=== PATIENT | male | born 1935 ===

== ENCOUNTER 2017-01-29 21:59 | Inpatient (IN) | payer MEDICARE, MEDICAID ==
[2017-01-29 21:59] VITALS: BMI 25.0
[2017-01-29] MEDS ORDERED: Albuterol-Ipratrop 3 mg / 0.5 (3 ml) UD ONE ×2 (22:06→23:35)
[2017-01-29] MEDS ORDERED: Albuterol-Ipratrop 3 mg / 0.5 (3 ml) UD INH STA (22:55)
[2017-01-29] MEDS ORDERED: Sodium Chloride 0.9% 1,000 ML IV ONE (22:56)
--- NOTE | 2017-01-29 22:57 | C.PDOC ---
History Of Present Illness Patient is an 81 year old male who presents to the ER with a complaint of SOB. Denies chest pain, fever, nausea or vomiting. Chief Complaint (Nursing): Shortness Of Breath History Per: Patient History/Exam Limitations: no limitations Onset/Duration Of Symptoms: Hrs Current Symptoms Are (Timing): Still Present Initiating Event: Other (Not known) Associated Symptoms: denies: Fever, Chest Pain, Other (Nausea, vomiting) Recent travel outside of the [place]: No Past Medical History Reviewed: Historical Data, Nursing Documentation, Vital Signs Vital Signs: Last Vital Signs Temp 98 F 02/02/17 16:00 Pulse 68 02/02/17 16:00 Resp 21 02/02/17 16:00 BP 118/72 02/02/17 18:08 Pulse Ox 99 02/02/17 19:36 - Medical History PMH: Anemia, Arthritis, Asthma, COPD, Diabetes, Emphysema, HTN, Hypercholesterolemia - [facility] Procedures ABD [place] REPAIR NEC (05/15/15) OTH LYSIS-PERITONEAL ADHES (05/15/15) Family History: States: Unknown Family Hx - Social History Hx Alcohol Use: No Hx Substance Use: No - Immunization History Hx Tetanus Toxoid Vaccination: No Hx Influenza Vaccination: No Hx Pneumococcal Vaccination: No Review Of Systems Constitutional: Negative for: Fever Cardiovascular: Negative for: Chest Pain Respiratory: Positive for: Shortness of Breath Gastrointestinal: Negative for: Nausea, Vomiting Physical Exam - Physical Exam Appears: Non-toxic, Other (Moderately Dyspenic) Skin: Normal Color, Warm, Dry Head: Atraumatic, Normacephalic Eye(s): bilateral: Normal Inspection, EOMI Oral Mucosa: Moist Chest: Symmetrical, No Tenderness Cardiovascular: Rhythm Regular (Tachycardic) Respiratory: Rhonchi (Bilaterally), Wheezing (Bilaterally) Gastrointestinal/Abdominal: Soft, No Tenderness Neurological/Psych: Oriented x3, Normal Speech, Normal Cognition ED Course And Treatment - Laboratory Results Result Diagrams: 02/02/17 06:22 02/02/17 06:22 ECG: Interpreted By Me, Viewed By Me ECG Rhythm: Sinus Tachycardia, R BBB ECG Interpretation: No Acute Changes, Abnormal Interpretation Of ECG: Sinus tachycardia with freq. PSVT, abnormal traciongs Rate From EC O2 Sat by Pulse Oximetry: 99 Pulse Ox Interpretation: Normal - Radiology CXR: Interpreted by Me, Viewed By Me CXR Interpretation: Yes: No Acute Disease. No: Infiltrates, Cardiomegaly Progress Note: EKG, blood work, CXR and urinalysis ordered. Solumedrol IVP, IV fluids and nebulizer treatment administered. Disposition Discussed With : Fracisco Lomax Jr. Doctor Will See Patient In The: Hospital Counseled Patient/Family Regarding: Diagnosis - Disposition Disposition: HOSPITALIZED Disposition Time: 01:20 Condition: STABLE - POA Present On Arrival: None - Clinical Impression Clinical Impression: Dyspnea, Asthma exacerbation, Renal insufficiency - Scribe Statement The provider has reviewed the documentation as recorded by the Scribe Ra Drummond All medical record entries made by the Scribe were at my direction and personally dictated by me. I have reviewed the chart and agree that the record accurately reflects my personal performance of the history, physical exam, medical decision making, and the department course for this patient. I have also personally directed, reviewed, and agree with the discharge instructions and disposition.
[2017-01-29 23:15] LABS: LYMPH # 0.3 K/uL (1.0-4.3); MEAN CORPUSCULAR HEMOGLOBIN 28.9 pg (27.0-31.0); WHITE BLOOD COUNT 6.4 K/uL (4.8-10.8)
[2017-01-29 23:17] LABS: BASO % 0.3 % (0.0-2.0); EOS # 0.1 K/uL (0.0-0.7); EOS % 1.7 % (0.0-4.0); LYMPH % 5.3 % (20.0-40.0); MEAN CELL VOLUME 88.2 fL (80.0-94.0); MEAN CORPUSCULAR HGB CONC 32.8 g/dL (33.0-37.0); MEAN PLATELET VOLUME 9.3 fL (7.2-11.7); MONO # 0.8 K/uL (0.0-0.8); MONO % 12.7 % (0.0-10.0); PLATELET COUNT 129 K/uL (130-400); RED CELL DISTRIBUTION WIDTH 15.3 % (11.5-14.5)
[2017-01-29 23:19] LABS: POTASSIUM 4.2 mmol/L (3.6-5.2)
[2017-01-29 23:21] LABS: ALB/GLOB RATIO 1.4 (1.0-2.1); BILIRUBIN,TOTAL 0.6 mg/dL (0.2-1.3); TOTAL PROTEIN 7.3 g/dL (6.3-8.3)
[2017-01-29 23:22] LABS: CALCIUM 8.9 mg/dl (8.6-10.4)
[2017-01-29 23:25] LABS: INR 1.2
[2017-01-29] MEDS ORDERED: Sodium Chloride 0.9% 1,000 ML ONE (23:35)
[2017-01-29 23:47] LABS: BASOPHIL 2 % (0-2); EOSINOPHIL 2 % (0-4); NEUTROPHIL 84 % (50-75); TOTAL CELLS COUNTED 100
[2017-01-30] MEDS ORDERED: Magnesium Sulfate 1 gm in D5W 1 GM/100 ML BAG IVPB ONE ×2 (00:42→00:49)
[2017-01-30] MEDS ORDERED: Enoxaparin 40 mg Syringe SC STA (01:25)
[2017-01-30] MEDS ORDERED: Sodium Chloride 0.9% 1,000 ML ONE (02:20)
[2017-01-30] MEDS ORDERED: Enoxaparin 60 mg Syringe ONE (02:20)
--- NOTE | 2017-01-30 02:46 | CP.PCM.HP ---
History of Present Illness - History of Present Illness History of Present Illness: CC: "Can't breathe and pain in chest" 81 M with PMH of Dm, COPD, Hyperlipidemia, Abdominal Aortic Aneurysm with Stent , history of paroxysmal afib, presents to [facility] ED for complaint of SOB and chest pain. Patient is unable to speak properly due to losing his voice. Becasue of this, History was limited. Patient states that these symptoms have been present for about 3 days. They had gotten worse earlier today and he felt like he needed to be seen. He has experienced these symptoms in the past. He rated chest pain as 7/10 in severity. He describes it as a constant heaviness located in chest bilaterally. Patient denies any exacerbating or alleviating factors for the pain but exertion makes his breathing worse. His last ECHO was in 09/2015 which showed normal EF at that time. Admits to chills, fatigue, palpitations, nausea. Denies fever, dizziness/lightheadedness, syncope , vertigo, headache, abd pain, vomiting, diarrhea, constipation, weakness, numbness/tingling, incontinence. PMH: Dm, COPD, Hyperlipidemia, Abdominal Aortic Aneurysm with Stent, Vascular Grafts, Scoliosis, Enlarged Prostate Meds: Patient does not have list with him, need to confirm Allergies: NKDA PSH: Hernia repair X 2, Abdominal Aortic Aneurysm Stent, Incarcerated hernia repair 05/2015 Hosp: Last year for fall and SOB FH: Mother -Throat CA, brother - CAD Social: > 50 pack years - Quit 15 years ago, denies ETOH/illicit drug use, uses Rolling walker at home. Present on Admission - Present on Admission Any Indicators Present on Admission: No History of DVT/PE: No History of Uncontrolled Diabetes: No Urinary Catheter: No Decubitus Ulcer Present: No Review of Systems - Constitutional Constitutional: Chills, Fatigue. absent: Fever, Headache, Weakness - EENT Eyes: absent: Blurred Vision, Change in Vision, Discharge, Loss of Vision Ears: absent: Ear Discharge, Ear Pain, Dizziness Nose/Mouth/Throat: absent: Nasal Trauma, Dysphagia, Sore Throat - Cardiovascular Cardiovascular: Chest Pain, Chest Pain at Rest, Chest Pain with Activity, Dyspnea, Dyspnea on Exertion, Palpitations. absent: Diaphoresis, Edema, Irregular Heart Rhythm, Pain Radiating to Arm/Neck/Jaw, Leg Edema, Lightheadedness, Pedal Edema - Respiratory Respiratory: Cough, Dyspnea, Dyspnea on Exertion, Wheezing. absent: Hemoptysis - Gastrointestinal Gastrointestinal: Nausea. absent: Abdominal Pain, Belching, Constipation, Diarrhea, Fecal Incontinence, Vomiting - Genitourinary Genitourinary: absent: Change in Urinary Stream, Difficulty Urinating, Dysuria, Urinary Incontinence - Musculoskeletal Musculoskeletal: Arthralgias, Myalgias. absent: Numbness, Tingling - Integumentary Integumentary: absent: Changing Lesions, New Lesions - Neurological Neurological: absent: Dizziness, Numbness, Headaches, Loss of Vision, Syncope, Tingling, Tremor, Vertigo, Weakness - Psychiatric Psychiatric: absent: Anxiety, Depression, Homicidal Ideation, Suicidal Ideation - Endocrine Endocrine: Fatigue, Palpitations. absent: Polydipsia, Polyphagia, Polyuria - Hematologic/Lymphatic Hematologic: absent: Easy Bleeding, Easy Bruising, Lymphadenopathy Past Patient History - Past Medical History & Family History Past Medical History?: No - Past Social History Smoking Status: Former Smoker - CARDIAC Hx Hypercholesterolemia: Yes Hx Hypertension: Yes - PULMONARY Hx Asthma: Yes Hx Chronic Obstructive Pulmonary Disease (COPD): Yes Hx Emphysema: Yes - HEENT Hx Cataracts: Yes (5-YRS AGO) - RENAL Other/Comment: Pre renal - ENDOCRINE/METABOLIC Hx Diabetes Mellitus Type 2: Yes - HEMATOLOGICAL/ONCOLOGICAL Hx Anemia: Yes - MUSCULOSKELETAL/RHEUMATOLOGICAL Hx Arthritis: Yes - GENITOURINARY/GYNECOLOGICAL Hx Prostate Problems: Yes (Enlarged Prostate) - PSYCHIATRIC Hx Substance Use: No - SURGICAL HISTORY Hx Surgeries: Yes Hx Abdominal Aortic Aneurysm Repair: Yes (1999) Hx Cataract Extraction: Yes - ANESTHESIA Hx Anesthesia: Yes Hx Anesthesia Reactions: No Meds Allergies/Adverse Reactions: Allergies Allergy/AdvReac Type Severity Reaction Status Date / Time No Known Allergies Allergy Verified 01/29/17 22:16 Physical Exam - Constitutional Appears: No Acute Distress - Head Exam Head Exam: ATRAUMATIC, NORMOCEPHALIC - Eye Exam Eye Exam: EOMI, Normal appearance Pupil Exam: PERRL - ENT Exam ENT Exam: Mucous Membranes Dry - Neck Exam Neck exam: Positive for: Normal Inspection - Respiratory Exam Respiratory Exam: Rales, Wheezes, NORMAL BREATHING PATTERN. absent: Accessory Muscle Use, Respiratory Distress - Cardiovascular Exam Cardiovascular Exam: REGULAR RHYTHM, RRR, +S1, +S2 - GI/Abdominal Exam GI & Abdominal Exam: Normal Bowel Sounds, Soft. absent: Distended, Firm, Guarding, Rebound, Tenderness - Extremities Exam Extremities exam: Positive for: normal capillary refill, pedal pulses present. Negative for: calf tenderness, pedal edema - Back Exam Back exam: absent: CVA tenderness (L), CVA tenderness (R) - Neurological Exam Neurological exam: Alert, CN II-XII Intact, Oriented x3 - Psychiatric Exam Psychiatric exam: Anxious - Skin Skin Exam: Dry, Intact, Normal Color, Warm Results - Vital Signs Recent Vital Signs: Last Vital Signs Temp 98.1 F 01/30/17 02:27 Pulse 81 01/30/17 02:27 Resp 20 01/30/17 02:27 BP 123/60 01/30/17 02:27 Pulse Ox 97 01/30/17 02:27 - Labs Result Diagrams: 01/29/17 23:07 01/29/17 23:07 Assessment & Plan - Assessment and Plan (Free Text) Plan: (1) Dyspnea/Chest pain COPD exacerbation vs CHF vs PE telemetry D dimer 3507 BNP 2560 Cardio consult, Dr. Lafleur, help appreciated Pulm consult, Dr. Hou, help appreciated. EKG CXR V/Q scan Lovenox 60mg SC in ED Heparin drip Morphine 1 mg IVP Q4H PRN Zofran 4 mg IVP Q6H PRN LE venous doppler F/U CANDACE x3 with EKG F/U ECHO F/U lipid panel F/U TSH/T4 O2 via NC (2) COPD Pulm consult, Dr. Hou, help appreciated CXR Solumedrol 40mg IV q8H Duoneb RQ6H F/U blood culture (3) ALEJANDRO Nephro consult, Dr. Duran, help appreciated Bun/Cr: 40/2.0 NS 100 cc/hr in ED Renal US (4) HTN Home meds listed in EMR but unconfirmed - Hold for now: Norvasc 5mg PO daily Bystolic 10mg PO daily Lasix 40mg PO daily Losartan 50mg PO daily (5) Diabetes mellitus ISS Accuchecks ACHS (6) Prophylactic measure SCDs Protonix 40 mg PO daily Heparin drip
[2017-01-30] MEDS ORDERED: Heparin25000 units/250ml 1/2NS 25,000 UNITS/250 ML BAG IV PRN (03:05)
[2017-01-30 04:20] LABS: T4 7.24 ug/dL (5.5-11.0)
[2017-01-30 04:33] LABS: THYROID STIMULATING HORMONE 0.82 mIU/L (0.46-4.68)
[2017-01-30] MEDS: MethylPREDNISolone 40 mg Vial IVP SCH ×3 (06:22→18:35)
[2017-01-30 06:59] LABS: BASO % 0.1 % (0.0-2.0); EOS % 0.1 % (0.0-4.0); HEMATOCRIT 29.3 % (35.0-51.0); LYMPH # 0.1 K/uL (1.0-4.3); LYMPH % 2.9 % (20.0-40.0); MEAN CELL VOLUME 87.7 fL (80.0-94.0); MEAN CORPUSCULAR HEMOGLOBIN 28.9 pg (27.0-31.0); MEAN PLATELET VOLUME 8.9 fL (7.2-11.7); MONO # 0.1 K/uL (0.0-0.8); MONO % 2.2 % (0.0-10.0); PLATELET COUNT 114 K/uL (130-400); RED CELL DISTRIBUTION WIDTH 15.2 % (11.5-14.5); WHITE BLOOD COUNT 4.7 K/uL (4.8-10.8)
[2017-01-30 07:14] LABS: POTASSIUM 4.2 mmol/L (3.6-5.2)
[2017-01-30] MEDS: Albuterol-Ipratrop 3 mg / 0.5 (3 ml) UD INH SCH ×3 (07:14→19:50)
--- NOTE | 2017-01-30 07:15 | CP.PCM.PN ---
<Nicky Laws - Last Filed: 01/30/17 16:11> Subjective - Date & Time of Evaluation Date of Evaluation: 01/30/17 Time of Evaluation: 09:45 - Subjective Subjective: PGY1 Medicine note for Dr. Lomax Pt seen and examined at bedside. Nursing reports no adverse events overnight. Today, patient is comfortable in bed, but he is easily distracted and difficult to focus. He is able to answer some questions, but then he speaks about completely different topics. Pt states he is still having some shortness of breath, but it is better than last night. Pt also complains of leg swelling bilaterally. Pt denies fever, chills, headache, dizziness, chest pain, palpitations, nausea, vomiting, bowel/bladder complaints. Objective - Vital Signs/Intake and Output Vital Signs (last 24 hours): Temp Pulse Resp BP Pulse Ox 97.6 F 76 20 125/71 96 01/30/17 03:53 01/30/17 03:53 01/30/17 03:53 01/30/17 03:53 01/30/17 03:53 - Medications Medications: Current Medications Albuterol/Ipratropium (Duoneb 3 Mg/0.5 Mg (3 Ml) Ud) 3 ml INH RQ6 [facility] Last Admin: 01/30/17 07:14 Dose: 3 ml Sodium Chloride (Sodium Chloride 0.9%) 1,000 mls @ 100 mls/hr IV .Q10H ONE Stop: 01/30/17 08:55 Last Admin: 01/29/17 23:38 Dose: 100 mls/hr Heparin Sodium/Sodium Chloride (Heparin 71234 Units/250ml 1/2 Normal Saline) 25 ,000 units in 250 mls @ 12.329 mls/hr IV .[id number] PRN; Protocol; 18 UNITS/KG/HR PRN Reason: PROTOCOL Last Admin: 01/30/17 05:00 Dose: 18 units/kg/hr, 12.329 mls/hr Insulin Human Regular (Novolin R) 0 unit SC ACHS NGUYỄN PRN Reason: Protocol Methylprednisolone (Solu-Medrol) 40 mg IVP Q8H [facility] Last Admin: 01/30/17 06:22 Dose: 40 mg Morphine Sulfate (Morphine) 1 mg IVP Q4H PRN PRN Reason: Pain, severe (8-10) Pgqpo-0-Mjud Ethyl Esters (Lovaza) 1 gm PO DAILY [facility] Ondansetron HCl (Zofran Inj) 4 mg IVP Q6 PRN PRN Reason: Nausea/Vomiting Pantoprazole Sodium (Protonix Ec Tab) 40 mg PO DAILY [facility] - Labs Labs: 01/30/17 06:49 PT 13.6 SECONDS (9.7-12.2) H 01/29/17 23:07 INR 1.2 01/29/17 23:07 APTT 29 SECONDS (21-34) 01/29/17 23:07 - Constitutional Appears: Non-toxic, No Acute Distress - Head Exam Head Exam: ATRAUMATIC, NORMAL INSPECTION, NORMOCEPHALIC - Eye Exam Eye Exam: Normal appearance. absent: Conjunctival injection, Scleral icterus Pupil Exam: NORMAL ACCOMODATION - ENT Exam ENT Exam: Mucous Membranes Dry - Neck Exam Neck Exam: Normal Inspection. absent: Tenderness - Respiratory Exam Respiratory Exam: Rhonchi, Wheezes, NORMAL BREATHING PATTERN. absent: Accessory Muscle Use, Clear to Ausculation Bilateral, Rales, Respiratory Distress - Cardiovascular Exam Cardiovascular Exam: REGULAR RHYTHM, RRR, +S1, +S2 - GI/Abdominal Exam GI & Abdominal Exam: Soft, Normal Bowel Sounds. absent: Distended, Firm, Guarding, Rigid, Tenderness - Extremities Exam Extremities Exam: Normal Capillary Refill, Normal Inspection. absent: Pedal Edema - Back Exam Back Exam: NORMAL INSPECTION. absent: rash noted - Neurological Exam Neurological Exam: Alert, Awake, Oriented x3 - Psychiatric Exam Psychiatric exam: Normal Affect, Normal Mood - Skin Skin Exam: Dry, Intact, Normal Color, Warm Assessment and Plan - Assessment and Plan (Free Text) Assessment: 81 M with PMH of Dm, COPD, Hyperlipidemia, Abdominal Aortic Aneurysm with Stent , history of paroxysmal afib, presents to [facility] ED for complaint of SOB and chest pain Plan: (1) Dyspnea/Chest pain COPD exacerbation with underlying cor pulmonale D dimer 3507 BNP 2560 Troponin negative x 3 CXR: mild venous congestion; R hilar prominence and L central venous catheter; R paratracheal airspace opacity likely represents prominent vasculature. Small nodular denisty at the right lung base. V/Q scan low probability for PE Morphine 1 mg IVP Q4H PRN Zofran 4 mg IVP Q6H PRN Lasix 40mg IVP BID LE venous doppler F/U ECHO lipid panel WNL TSH/T4 WNL O2 via NC Cardio consult, Dr. Lafleur, help appreciated Pulm consult, Dr. oHu, help appreciated. (2) COPD Pulm consult, Dr. Hou, help appreciated CXR Solumedrol 40mg IV q8H Pulmicort 0.25mg INH Q12 Spiriva 18mcg INH Q24 Duoneb RQ6H F/U blood culture (3) ALEJANDRO Nephro consult, Dr. Duran, help appreciated Bun/Cr: 40/2.0 Renal US: severe unilateral R sided hydronephrosis. large R lower quadrant and pelvic mass likely related to findings. (4) HTN Home meds listed in EMR but unconfirmed - Hold for now: Norvasc 5mg PO daily Bystolic 10mg PO daily Lasix 40mg PO daily Losartan 50mg PO daily (5) Diabetes mellitus ISS Accuchecks ACHS (6) Paroxsymal AFib Xarelto 10mg po daily (7) Prophylactic measure SCDs Protonix 40 mg PO daily Morphine 1mg IVP Q4 prn pain severe Zofran 4mg IVP Q6 PRN nausea/vomiting Heart healthy diet Plan discussed with Dr. Monie Laws PGY1 <Fracisco Lomax Jr. - Last Filed: 02/02/17 11:10> Objective - Vital Signs/Intake and Output Vital Signs (last 24 hours): Temp Pulse Resp BP Pulse Ox 97.6 F 83 16 133/80 91 L 02/02/17 00:00 02/02/17 06:40 02/02/17 06:40 02/02/17 06:21 02/02/17 06:30 Intake and Output: 02/02/17 02/02/17 06:59 18:59 Intake Total 1056 88 Output Total 913 83 Balance 143 5 - Medications Medications: Current Medications Acetylcysteine (Acetylcysteine 20%) 6 ml PO Q12 NGUYỄN Stop: 02/03/17 22:01 Last Admin: 02/02/17 10:50 Dose: 6 ml Albuterol/Ipratropium (Duoneb 3 Mg/0.5 Mg (3 Ml) Ud) 3 ml INH RQ6 NGUY[facility]N Last Admin: 02/02/17 07:58 Dose: 3 ml Amiodarone HCl (Cordarone) 200 mg PO DAILY [facility] Last Admin: 02/02/17 09:59 Dose: 200 mg Budesonide (Pulmicort Respules) 0.25 mg INH RQ12 [facility] Last Admin: 02/02/17 07:58 Dose: 0.25 mg Diltiazem HCl (Cardizem) 60 mg PO Q8H [facility] Last Admin: 02/02/17 10:02 Dose: 60 mg Furosemide (Lasix) 20 mg PO BID [facility] Heparin Sodium/Sodium Chloride (Heparin 06221 Units/250ml 1/2 Normal Saline) 25 ,000 units in 250 mls @ 0 mls/hr IV .Q0M PRN; Protocol; Per Protocol PRN Reason: PROTOCOL Last Titration: 02/02/17 08:07 Dose: 9 u/kg/hr, 6.042 mls/hr Sodium Chloride (Sodium Chloride 0.9%) 1,000 mls @ 75 mls/hr IV .[id number] [facility] Last Admin: 02/02/17 00:00 Dose: Not Given Diltiazem HCl 125 mg/ Dextrose 125 mls @ 7.5 mls/hr IV .[id number] NGUYỄN; 7.5 MG/HR PRN Reason: Protocol Last Admin: 02/02/17 06:00 Dose: Not Given Sodium Phosphate 15 mmole/ (Sodium Chloride) 255 mls @ 50 mls/hr IVPB .Q5H6M ONE Stop: 02/02/17 12:46 Last Admin: 02/02/17 10:28 Dose: 50 mls/hr Insulin Human Regular (Novolin R) 0 unit SC ACHS [facility] PRN Reason: Protocol Last Admin: 02/02/17 07:43 Dose: Not Given Methylprednisolone (Solu-Medrol) 40 mg IVP Q12H [facility] Morphine Sulfate (Morphine) 1 mg IVP Q4H PRN PRN Reason: Pain, severe (8-10) Ksoea-8-Vygu Ethyl Esters (Lovaza) 1 gm PO DAILY [facility] Last Admin: 02/02/17 10:00 Dose: 1 gm Ondansetron HCl (Zofran Inj) 4 mg IVP Q6 PRN PRN Reason: Nausea/Vomiting Pantoprazole Sodium (Protonix Ec Tab) 40 mg PO DAILY [facility] Last Admin: 02/02/17 10:00 Dose: 40 mg Rivaroxaban (Xarelto) 10 mg PO DAILY [facility] Last Admin: 02/01/17 10:00 Dose: 10 mg Tiotropium [place] (Spiriva) 18 mcg INH RQ24 [facility] Last Admin: 02/02/17 10:18 Dose: 18 mcg - Labs Labs: 02/02/17 06:22 02/02/17 06:22 PT 11.7 SECONDS (9.7-12.2) 01/31/17 07:49 INR 1.0 01/31/17 07:49 APTT 134 SECONDS (21-34) H* D 02/02/17 06:22 Attending/Attestation - Attestation I have personally seen and examined this patient.: Yes I have fully participated in the care of the patient.: Yes I have reviewed all pertinent clinical information, including history, physical exam and plan: Yes Notes (Text): 02/02/17 11:09 Agree with resident note and plan of care
[2017-01-30 07:16] LABS: BILIRUBIN,TOTAL 0.6 mg/dL (0.2-1.3)
[2017-01-30 07:17] LABS: ALB/GLOB RATIO 1.2 (1.0-2.1); TOTAL PROTEIN 6.5 g/dL (6.3-8.3)
[2017-01-30] MEDS: (Novolin R) Insulin Human Regular 100 units/ml vial SC SCH ×4 (08:14→22:10)
--- NOTE | 2017-01-30 08:25 | RAD ---
PROCEDURE: CHEST RADIOGRAPH, 1 VIEW HISTORY: SOB COMPARISON: 05/18/2015 FINDINGS: LUNGS: Mild venous congestion. Right hilar prominence. Left central venous catheter. Right paratracheal airspace opacity likely represents prominent vasculature. Small nodular density at the right lung base. PLEURA: No pneumothorax or pleural fluid seen. CARDIOVASCULAR: Normal. OSSEOUS STRUCTURES: No significant abnormalities. VISUALIZED UPPER ABDOMEN: Normal. OTHER FINDINGS: None. IMPRESSION: Mild venous congestion. Right hilar prominence. Left central venous catheter. Right paratracheal airspace opacity likely represents prominent vasculature. Small nodular density at the right lung base.
[2017-01-30 09:33] LABS: NEUTROPHIL 97 % (50-75); TOTAL CELLS COUNTED 100
--- NOTE | 2017-01-30 09:33 | NM ---
COMPARISON: January 30, 2017. Single-view chest TECHNIQUE: 12.0 mCi technetium 99-m Xe-133 Gas. 3.8 mCI technetium 99-m MAA administered intravenously. FINDINGS: VENTILATION COMPONENT: Normal. PERFUSION COMPONENT: Heterogeneous distribution of radionuclide. No geographic, segmental, lobar abnormalities apparent on the present examination. IMPRESSION: Low probability ventilation perfusion scan for pulmonary embolism.
[2017-01-30] MEDS: Omega-3-Acid Ethyl Esters 1 GM Cap PO SCH (09:51)
[2017-01-30] MEDS: Pantoprazole 40 mg EC Tab PO SCH (09:51)
--- NOTE | 2017-01-30 12:00 | CP.PCM.CON ---
History of Present Illness - History of Present Illness History of Present Illness: Reason for consultation: Shortness of breath and cough 81 M with PMH of Dm, COPD, Hyperlipidemia, Abdominal Aortic Aneurysm with Stent , history of paroxysmal afib, presents to [facility] ED for complaint of SOB and chest pain. Shortness of breath progressively got worse over 3 days, and is associated with cough productive of yellowish phlegm. Denies fever or chills. denies vomiting, diarrhea, constipation, weakness, numbness/tingling, incontinence. PMH: Dm, COPD, Hyperlipidemia, Abdominal Aortic Aneurysm with Stent, Vascular Grafts, Scoliosis, Enlarged Prostate Meds: Patient does not have list with him, need to confirm Allergies: NKDA PSH: Hernia repair X 2, Abdominal Aortic Aneurysm Stent, Incarcerated hernia repair 05/2015 Hosp: Last year for fall and SOB FH: Mother -Throat CA, brother - CAD Social: > 50 pack years - Quit 15 years ago, denies ETOH/illicit drug use, uses Rolling walker at home. Review of Systems - Review of Systems All systems: reviewed and no additional remarkable complaints except (Shortness of breath and productive cough, also complaining of wheezing) Past Patient History - Past Medical History & Family History Past Medical History?: No - Past Social History Smoking Status: Former Smoker - CARDIAC Hx Hypercholesterolemia: Yes Hx Hypertension: Yes - PULMONARY Hx Asthma: Yes Hx Chronic Obstructive Pulmonary Disease (COPD): Yes Hx Emphysema: Yes - NEUROLOGICAL Hx Neurological Disorder: No - HEENT Hx Cataracts: Yes (5-YRS AGO) - RENAL Other/Comment: Pre renal - ENDOCRINE/METABOLIC Hx Diabetes Mellitus Type 2: Yes - HEMATOLOGICAL/ONCOLOGICAL Hx Anemia: Yes - INTEGUMENTARY Hx Dermatological Problems: No - MUSCULOSKELETAL/RHEUMATOLOGICAL Hx Arthritis: Yes - GASTROINTESTINAL Hx Gastrointestinal Disorders: No - GENITOURINARY/GYNECOLOGICAL Hx Prostate Problems: Yes (Enlarged Prostate) - PSYCHIATRIC Hx Substance Use: No - SURGICAL HISTORY Hx Surgeries: Yes Hx Abdominal Aortic Aneurysm Repair: Yes (1999) Hx Cataract Extraction: Yes - ANESTHESIA Hx Anesthesia: Yes Hx Anesthesia Reactions: No Meds Allergies/Adverse Reactions: Allergies Allergy/AdvReac Type Severity Reaction Status Date / Time No Known Allergies Allergy Verified 01/29/17 22:16 - Medications Medications: Current Medications Albuterol/Ipratropium (Duoneb 3 Mg/0.5 Mg (3 Ml) Ud) 3 ml INH RQ6 [id number] Last Admin: 01/30/17 07:14 Dose: 3 ml Heparin Sodium/Sodium Chloride (Heparin 22412 Units/250ml 1/2 Normal Saline) 25 ,000 units in 250 mls @ 12.329 mls/hr IV .[id number] PRN; Protocol; 18 UNITS/KG/HR PRN Reason: PROTOCOL Last Admin: 01/30/17 05:00 Dose: 18 units/kg/hr, 12.329 mls/hr Insulin Human Regular (Novolin R) 0 unit SC ACHS [facility] PRN Reason: Protocol Last Admin: 01/30/17 08:14 Dose: Not Given Methylprednisolone (Solu-Medrol) 40 mg IVP Q8H [facility] Last Admin: 01/30/17 06:22 Dose: 40 mg Morphine Sulfate (Morphine) 1 mg IVP Q4H PRN PRN Reason: Pain, severe (8-10) [id number] Ethyl Esters (Lovaza) 1 gm PO DAILY [facility] Last Admin: 01/30/17 09:51 Dose: Not Given Ondansetron HCl (Zofran Inj) 4 mg IVP Q6 PRN PRN Reason: Nausea/Vomiting Pantoprazole Sodium (Protonix Ec Tab) 40 mg PO DAILY [facility] Last Admin: 01/30/17 09:51 Dose: Not Given Physical Exam - Constitutional Appears: No Acute Distress - Head Exam Head Exam: ATRAUMATIC, NORMOCEPHALIC - Eye Exam Eye Exam: Normal appearance - ENT Exam ENT Exam: Mucous Membranes Moist - Neck Exam Neck exam: Positive for: Full Rom, Normal Inspection - Respiratory Exam Respiratory Exam: Rhonchi, Wheezes - Cardiovascular Exam Cardiovascular Exam: REGULAR RHYTHM - GI/Abdominal Exam GI & Abdominal Exam: Normal Bowel Sounds, Soft - Extremities Exam Extremities exam: Positive for: normal inspection - Neurological Exam Neurological exam: Alert, Oriented x3 Results - Vital Signs Recent Vital Signs: Last Vital Signs Temp 97.6 F 01/30/17 08:14 Pulse 70 01/30/17 08:14 Resp 20 01/30/17 08:14 BP 112/67 01/30/17 08:14 Pulse Ox 97 01/30/17 08:14 - Labs Result Diagrams: 01/30/17 06:49 01/30/17 06:49 Labs: Laboratory Results - last 24 hr 01/30/17 01/30/17 01/30/17 03:44 06:47 06:49 WBC RBC Hgb Hct MCV MCH MCHC RDW Plt Count MPV Neut % (Auto) Lymph % (Auto) [place] % (Auto) Eos % (Auto) Baso % (Auto) Neut # Lymph # [place] # Eos # Baso # Neutrophils % (Manual) Lymphocytes % (Manual) Monocytes % (Manual) Platelet Estimate Hypochromasia (manual) Anisocytosis (manual) Ovalocytes Sodium Potassium Chloride Carbon Dioxide Anion Gap BUN Creatinine Est GFR ( Amer) Est GFR (Non-Af Amer) POC Glucose (mg/dL) 178 H Random Glucose Calcium Phosphorus Magnesium Total Bilirubin AST ALT Alkaline Phosphatase Total Creatine Kinase 185 H 206 H CK-MB (Mass) 1.85 2.27 Troponin I, Quant 0.0830 0.0670 Total Protein Albumin Globulin Albumin/Globulin Ratio Triglycerides 70 Cholesterol 147 LDL Cholesterol Direct 54 HDL Cholesterol 50 Thyroxine (T4) 7.24 TSH 3rd Generation 0.82 01/30/17 01/30/17 01/30/17 06:49 06:49 11:25 WBC 4.7 L RBC 3.34 L Hgb 9.7 L Hct 29.3 L MCV 87.7 MCH 28.9 MCHC 33.0 RDW 15.2 H Plt Count 114 L MPV 8.9 Neut % (Auto) 94.7 H Lymph % (Auto) 2.9 L [place] % (Auto) 2.2 Eos % (Auto) 0.1 Baso % (Auto) 0.1 Neut # 4.4 Lymph # 0.1 L [place] # 0.1 Eos # 0.0 Baso # 0.0 Neutrophils % (Manual) 97 H Lymphocytes % (Manual) 2 L Monocytes % (Manual) 1 Platelet Estimate Slightly decreased L Hypochromasia (manual) Slight Anisocytosis (manual) Slight Ovalocytes Slight Sodium 138 Potassium 4.2 Chloride 100 Carbon Dioxide 27 Anion Gap 15 BUN 32 H Creatinine 1.5 Est GFR ( Amer) 54 Est GFR (Non-Af Amer) 45 POC Glucose (mg/dL) 216 H Random Glucose 172 H Calcium 8.0 L Phosphorus 3.0 Magnesium 2.0 Total Bilirubin 0.6 AST 27 ALT 19 L D Alkaline Phosphatase 78 Total Creatine Kinase CK-MB (Mass) Troponin I, Quant Total Protein 6.5 Albumin 3.6 Globulin 2.9 Albumin/Globulin Ratio 1.2 Triglycerides Cholesterol LDL Cholesterol Direct HDL Cholesterol Thyroxine (T4) TSH 3rd Generation Assessment & Plan (1) COPD with exacerbation Status: Acute Comment: Continue IV steroids, bronchodilators. Start budesonide nebulizer treatment. Add Spiriva. Pulmonary function test as outpatient. IV antibiotics
--- NOTE | 2017-01-30 12:08 | US ---
PROCEDURE: Ultrasound of the Kidneys HISTORY: acute renal failure COMPARISON: None available. TECHNIQUE: Sonogram of the kidneys. FINDINGS: RIGHT KIDNEY: Measures: 7.9 x 8.2 x 12.9 cm. Severe right hydronephrosis and proximal right ureter dilatation without obstructing lesion. Incidental finding(s): Parapelvic cysts identified. LEFT KIDNEY: Measures: 4 x 4.6 x 9.5 cm. Normal in size, contour and echogenicity. No stone, solid mass lesion or hydronephrosis visualized. OTHER FINDINGS: Mildly aneurysmal distal aorta 3.4 x 3.6 cm. Solid mass right lower quadrant/right hemipelvis measures 8.1 x 9.2 cm. Follow-up CT advised for further evaluation. IMPRESSION: Severe unilateral right-sided hydronephrosis. Large right lower quadrant and pelvic mass likely related to these findings. CT scan abdomen pelvis strongly recommended.
[2017-01-30 13:59] LABS: RBC URINE 2 /hpf (0-3); URINE BILIRUBIN NEGATIVE (NEGATIVE); URINE BLOOD 2+ (NEGATIVE); URINE COLOR Yellow (YELLOW); URINE GLUCOSE (UA) 1+ mg/dL (Normal); URINE KETONE NEGATIVE (NEGATIVE); URINE LEUKOCYTE ESTERASE 2+ Leu/uL (Negative); URINE PROTEIN NEGATIVE (NEGATIVE); URINE UROBILINOGEN NORMAL mg/dL (0.2-1.0); WBC URINE 3 /hpf (0-5)
--- NOTE | 2017-01-30 13:59 | VASCLAB ---
PROCEDURE: Lower Extremity Venous Duplex Exam. HISTORY: elevated d dimer PRIORS: None. TECHNIQUE: Bilateral common femoral, femoral, popliteal and posterior tibial, peroneal and great saphenous veins were evaluated. Flow was assessed with color Doppler, compressibility, assessment of phasic flow and augmentation response. Report prepared by Ra Alberts, WILLIE, RVT FINDINGS: RIGHT: 1. Common Femoral Vein: 1.1. Compressibility - Fully compressible: Thrombus - None : Flow - Phasic: Augmentation -Normal: Reflux - None. 2. Femoral Vein: 2.1. Compressibility - Fully compressible: Thrombus - None : Flow - Phasic: Augmentation -Normal: Reflux - None. 3. Popliteal Vein: 3.1. Compressibility - Fully compressible: Thrombus - None : Flow - Phasic: Augmentation -Normal: Reflux - None. 4. Posterior Tibial Vein: 4.1. Compressibility - Fully compressible: Thrombus - None: Flow - Phasic: Augmentation -Normal: Reflux - None. 5. Peroneal Vein: 5.1. Compressibility - Fully compressible: Thrombus - None: Flow - Phasic: Augmentation -Normal: Reflux - None. 6. Great Saphenous Vein: 6.1. Compressibility - Fully compressible: Thrombus - None: Flow - Phasic: Augmentation - Normal: Reflux - None. LEFT: 1. Common Femoral Vein: 1.1. Compressibility - Fully compressible: Thrombus - None: Flow - Phasic: Augmentation -Normal: Reflux - None. 2. Femoral Vein: 2.1. Compressibility - Fully compressible: Thrombus - None: Flow - Phasic: Augmentation -Normal: Reflux - None. 3. Popliteal Vein: 3.1. Compressibility - Fully compressible: Thrombus - None : Flow - Phasic: Augmentation -Normal: Reflux - None. 4. Posterior Tibial Vein: 4.1. Compressibility - Fully compressible: Thrombus - None: Flow - Phasic: Augmentation -Normal: Reflux - None. 5. Peroneal Vein: 5.1. Compressibility - Fully compressible: Thrombus - None: Flow - Phasic: Augmentation -Normal: Reflux - None. 6. Great Saphenous Vein: 6.1. Compressibility - Fully compressible: Thrombus - None: Flow - Phasic: Augmentation - Normal: Reflux - None. 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 IMPRESSION: Right: No evidence of deep or superficial vein thrombosis of the right lower extremity. Normal valve function noted of the right side. Left: No evidence of deep or superficial vein thrombosis of the left lower extremity. Normal valve function noted of the left side.
--- NOTE | 2017-01-30 16:29 | CP.PCM.CON ---
<Ellen Salguero - Last Filed: 01/30/17 16:45> History of Present Illness - History of Present Illness History of Present Illness: PGY-[address] Lafleur Cardiology Consult: dyspnea, paroxysmal A-fib 81 M with PMH of paroxysmal afib on Eliquis, DM2, COPD/ex-smoker of 50pack-yr, Hyperlipidemia, CKD 3, Abdominal Aortic Aneurysm with Stent, presents to the ED for complaint of SOB and chest pain. Examined pt with today by bedside. Pt states that he had chest pain 2 months ago. No recent chest pain. However, he has increased difficulty walking, with SOB worsened for the past 3 days. He has prolong period of resting due to increased difficulty walking. ROS (+) chills, fatigue, palpitations, cough Denies fever, dizziness/lightheadedness, syncope, vertigo, headache, abd pain, N /V/D/C, weakness, numbness/tingling, incontinence. PMH: Dm, COPD, Hyperlipidemia, Abdominal Aortic Aneurysm with Stent, Vascular Grafts, Scoliosis, Enlarged Prostate. Hx fall PSH: Hernia repair X 2, Abdominal Aortic Aneurysm Stent, Incarcerated hernia repair 05/2015 FH: Mother -Throat CA, brother - CAD Social: > 50 pack years - Quit 15 years ago, denies ETOH/illicit drug use, uses Rolling walker at home. Allergies: NKDA Past Patient History - Past Medical History & Family History Past Medical History?: No - Past Social History Smoking Status: Former Smoker - CARDIAC Hx Hypercholesterolemia: Yes Hx Hypertension: Yes - PULMONARY Hx Asthma: Yes Hx Chronic Obstructive Pulmonary Disease (COPD): Yes Hx Emphysema: Yes - NEUROLOGICAL Hx Neurological Disorder: No - HEENT Hx Cataracts: Yes (5-YRS AGO) - RENAL Other/Comment: Pre renal - ENDOCRINE/METABOLIC Hx Diabetes Mellitus Type 2: Yes - HEMATOLOGICAL/ONCOLOGICAL Hx Anemia: Yes - INTEGUMENTARY Hx Dermatological Problems: No - MUSCULOSKELETAL/RHEUMATOLOGICAL Hx Arthritis: Yes - GASTROINTESTINAL Hx Gastrointestinal Disorders: No - GENITOURINARY/GYNECOLOGICAL Hx Prostate Problems: Yes (Enlarged Prostate) - PSYCHIATRIC Hx Substance Use: No - SURGICAL HISTORY Hx Surgeries: Yes Hx Abdominal Aortic Aneurysm Repair: Yes (1999) Hx Cataract Extraction: Yes - ANESTHESIA Hx Anesthesia: Yes Hx Anesthesia Reactions: No Meds Allergies/Adverse Reactions: Allergies Allergy/AdvReac Type Severity Reaction Status Date / Time No Known Allergies Allergy Verified 01/29/17 22:16 - Medications Medications: Current Medications Albuterol/Ipratropium (Duoneb 3 Mg/0.5 Mg (3 Ml) Ud) 3 ml INH RQ6 [facility] Last Admin: 01/30/17 13:18 Dose: 3 ml Budesonide (Pulmicort Respules) 0.25 mg INH RQ12 [facility] Furosemide (Lasix) 40 mg IVP BID [facility] Last Admin: 01/30/17 13:43 Dose: 40 mg Insulin Human Regular (Novolin R) 0 unit SC ACHS [facility] PRN Reason: Protocol Last Admin: 01/30/17 11:57 Dose: 1 unit Methylprednisolone (Solu-Medrol) 40 mg IVP Q8H [facility] Last Admin: 01/30/17 11:58 Dose: 40 mg Morphine Sulfate (Morphine) 1 mg IVP Q4H PRN PRN Reason: Pain, severe (8-10) Zoaae-4-Sxur Ethyl Esters (Lovaza) 1 gm PO DAILY [facility] Last Admin: 01/30/17 09:51 Dose: Not Given Ondansetron HCl (Zofran Inj) 4 mg IVP Q6 PRN PRN Reason: Nausea/Vomiting Pantoprazole Sodium (Protonix Ec Tab) 40 mg PO DAILY [facility] Last Admin: 01/30/17 09:51 Dose: Not Given Rivaroxaban (Xarelto) 10 mg PO DAILY [facility] Tiotropium [place] (Spiriva) 18 mcg INH RQ24 [facility] Tiotropium [place] (Spiriva Inhalation Handihaler Device) 1 inhaler INH ONCE ONE Stop: 01/31/17 08:01 Physical Exam - Constitutional Appears: No Acute Distress - Head Exam Head Exam: ATRAUMATIC, NORMOCEPHALIC - Eye Exam Eye Exam: EOMI, Normal appearance Pupil Exam: NORMAL ACCOMODATION - ENT Exam ENT Exam: Mucous Membranes Moist - Respiratory Exam Respiratory Exam: Clear to Auscultation Bilateral, NORMAL BREATHING PATTERN. absent: Rales, Rhonchi, Wheezes - Cardiovascular Exam Cardiovascular Exam: Irregular Rhythm, +S1, +S2, Systolic Murmur - GI/Abdominal Exam GI & Abdominal Exam: Normal Bowel Sounds, Soft. absent: Tenderness - Extremities Exam Extremities exam: Positive for: normal capillary refill, pedal edema (s;ight). Negative for: calf tenderness - Neurological Exam Neurological exam: Alert, Oriented x3 - Psychiatric Exam Psychiatric exam: Normal Affect, Normal Mood - Skin Skin Exam: Dry, Warm Results - Vital Signs Recent Vital Signs: Last Vital Signs Temp 97.8 F 01/30/17 15:00 Pulse 68 01/30/17 15:00 Resp 20 01/30/17 15:00 BP 121/59 L 01/30/17 15:00 Pulse Ox 97 01/30/17 15:00 - Labs Result Diagrams: 01/30/17 06:49 01/30/17 06:49 Labs: Laboratory Results - last 24 hr 01/30/17 01/30/17 01/30/17 03:44 06:47 06:49 WBC RBC Hgb Hct MCV MCH MCHC RDW Plt Count MPV Neut % (Auto) Lymph % (Auto) [place] % (Auto) Eos % (Auto) Baso % (Auto) Neut # Lymph # [place] # Eos # Baso # Neutrophils % (Manual) Lymphocytes % (Manual) Monocytes % (Manual) Platelet Estimate Hypochromasia (manual) Anisocytosis (manual) Ovalocytes APTT Sodium Potassium Chloride Carbon Dioxide Anion Gap BUN Creatinine Est GFR ( Amer) Est GFR (Non-Af Amer) POC Glucose (mg/dL) 178 H Random Glucose Hemoglobin A1c Calcium Phosphorus Magnesium Total Bilirubin AST ALT Alkaline Phosphatase Total Creatine Kinase 185 H 206 H CK-MB (Mass) 1.85 2.27 Troponin I, Quant 0.0830 0.0670 Total Protein Albumin Globulin Albumin/Globulin Ratio Triglycerides 70 Cholesterol 147 LDL Cholesterol Direct 54 HDL Cholesterol 50 Thyroxine (T4) 7.24 TSH 3rd Generation 0.82 Urine Color Urine Clarity Urine pH Ur Specific [place] Urine Protein Urine Glucose (UA) Urine Ketones Urine Blood Urine Nitrate Urine Bilirubin Urine Urobilinogen Ur Leukocyte Esterase Urine WBC (Auto) Urine RBC (Auto) Ur Squamous Epith Cells Ur Random Creatinine U Random Total Protein 01/30/17 01/30/17 01/30/17 06:49 06:49 06:49 WBC 4.7 L RBC 3.34 L Hgb 9.7 L Hct 29.3 L MCV 87.7 MCH 28.9 MCHC 33.0 RDW 15.2 H Plt Count 114 L MPV 8.9 Neut % (Auto) 94.7 H Lymph % (Auto) 2.9 L [place] % (Auto) 2.2 Eos % (Auto) 0.1 Baso % (Auto) 0.1 Neut # 4.4 Lymph # 0.1 L [place] # 0.1 Eos # 0.0 Baso # 0.0 Neutrophils % (Manual) 97 H Lymphocytes % (Manual) 2 L Monocytes % (Manual) 1 Platelet Estimate Slightly decreased L Hypochromasia (manual) Slight Anisocytosis (manual) Slight Ovalocytes Slight APTT Sodium 138 Potassium 4.2 Chloride 100 Carbon Dioxide 27 Anion Gap 15 BUN 32 H Creatinine 1.5 Est GFR ( Amer) 54 Est GFR (Non-Af Amer) 45 POC Glucose (mg/dL) Random Glucose 172 H Hemoglobin A1c 6.1 Calcium 8.0 L Phosphorus 3.0 Magnesium 2.0 Total Bilirubin 0.6 AST 27 ALT 19 L D Alkaline Phosphatase 78 Total Creatine Kinase CK-MB (Mass) Troponin I, Quant Total Protein 6.5 Albumin 3.6 Globulin 2.9 Albumin/Globulin Ratio 1.2 Triglycerides Cholesterol LDL Cholesterol Direct HDL Cholesterol Thyroxine (T4) TSH 3rd Generation Urine Color Urine Clarity Urine pH Ur Specific [place] Urine Protein Urine Glucose (UA) Urine Ketones Urine Blood Urine Nitrate Urine Bilirubin Urine Urobilinogen Ur Leukocyte Esterase Urine WBC (Auto) Urine RBC (Auto) Ur Squamous Epith Cells Ur Random Creatinine U Random Total Protein 01/30/17 01/30/17 01/30/17 11:25 13:41 13:41 WBC RBC Hgb Hct MCV MCH MCHC RDW Plt Count MPV Neut % (Auto) Lymph % (Auto) [place] % (Auto) Eos % (Auto) Baso % (Auto) Neut # Lymph # [place] # Eos # Baso # Neutrophils % (Manual) Lymphocytes % (Manual) Monocytes % (Manual) Platelet Estimate Hypochromasia (manual) Anisocytosis (manual) Ovalocytes APTT Sodium Potassium Chloride Carbon Dioxide Anion Gap BUN Creatinine Est GFR ( Amer) Est GFR (Non-Af Amer) POC Glucose (mg/dL) 216 H Random Glucose Hemoglobin A1c Calcium Phosphorus Magnesium Total Bilirubin AST ALT Alkaline Phosphatase Total Creatine Kinase CK-MB (Mass) Troponin I, Quant Total Protein Albumin Globulin Albumin/Globulin Ratio Triglycerides Cholesterol LDL Cholesterol Direct HDL Cholesterol Thyroxine (T4) TSH 3rd Generation Urine Color Yellow Urine Clarity Hazy Urine pH 5.0 Ur Specific [place] 1.016 Urine Protein Negative Urine Glucose (UA) 1+ H Urine Ketones Negative Urine Blood 2+ H Urine Nitrate Negative Urine Bilirubin Negative Urine Urobilinogen Normal Ur Leukocyte Esterase 2+ H Urine WBC (Auto) 3 Urine RBC (Auto) 2 Ur Squamous Epith Cells < 1 Ur Random Creatinine 95.8 U Random Total Protein Cancelled 01/30/17 01/30/17 01/30/17 13:41 14:00 14:34 WBC RBC Hgb Hct MCV MCH MCHC RDW Plt Count MPV Neut % (Auto) Lymph % (Auto) [place] % (Auto) Eos % (Auto) Baso % (Auto) Neut # Lymph # [place] # Eos # Baso # Neutrophils % (Manual) Lymphocytes % (Manual) Monocytes % (Manual) Platelet Estimate Hypochromasia (manual) Anisocytosis (manual) Ovalocytes APTT 186 H* D Sodium Potassium Chloride Carbon Dioxide Anion Gap BUN Creatinine Est GFR ( Amer) Est GFR (Non-Af Amer) POC Glucose (mg/dL) Random Glucose Hemoglobin A1c Calcium Phosphorus Magnesium Total Bilirubin AST ALT Alkaline Phosphatase Total Creatine Kinase 262 H CK-MB (Mass) 3.09 Troponin I, Quant 0.0390 Total Protein Albumin Globulin Albumin/Globulin Ratio Triglycerides Cholesterol LDL Cholesterol Direct HDL Cholesterol Thyroxine (T4) TSH 3rd Generation Urine Color Urine Clarity Urine pH Ur Specific [place] Urine Protein Urine Glucose (UA) Urine Ketones Urine Blood Urine Nitrate Urine Bilirubin Urine Urobilinogen Ur Leukocyte Esterase Urine WBC (Auto) Urine RBC (Auto) Ur Squamous Epith Cells Ur Random Creatinine U Random Total Protein 38.0 H Assessment & Plan - Assessment and Plan (Free Text) Plan: 81 M with PMH of paroxysmal afib on Eliquis, DM2, COPD/ex-smoker of 50pack-yr, Hyperlipidemia, CKD 3, Abdominal Aortic Aneurysm with Stent, presents to the ED for complaint of SOB. CP was 2 months ago and pt could not articulate events leading to CP. A-fib - consider terminal gauger anticoagulation, renal dose - Need to educate pt re: bleeding risk and fall precaution Hx CAD - EKG: Sinus tachy 114. SVC. RBBB. Q waves in inferior leads. - Home: bystolic, losartan - ON HOLD per primary CV risk reduction - DM controlled - consider ASA, high-dose statin DVT prophylasix - consider heparin SC TID Will D/S/R/w Dr. Lafleur - Date & Time Date: 01/30/17 Time: 16:39 <Maxi Lafleur - Last Filed: 01/31/17 01:45> Meds - Medications Medications: Current Medications Albuterol/Ipratropium (Duoneb 3 Mg/0.5 Mg (3 Ml) Ud) 3 ml INH RQ6 [facility] Last Admin: 01/31/17 01:00 Dose: 3 ml Budesonide (Pulmicort Respules) 0.25 mg INH RQ12 [facility] Last Admin: 01/30/17 19:49 Dose: Not Given Furosemide (Lasix) 20 mg IVP BID [facility] Insulin Human Regular (Novolin R) 0 unit SC ACHS [facility] PRN Reason: Protocol Last Admin: 01/30/17 22:10 Dose: Not Given Methylprednisolone (Solu-Medrol) 40 mg IVP Q8H [facility] Last Admin: 01/30/17 18:35 Dose: 40 mg Morphine Sulfate (Morphine) 1 mg IVP Q4H PRN PRN Reason: Pain, severe (8-10) Dbido-7-Fnto Ethyl Esters (Lovaza) 1 gm PO DAILY [facility] Last Admin: 01/30/17 09:51 Dose: Not Given Ondansetron HCl (Zofran Inj) 4 mg IVP Q6 PRN PRN Reason: Nausea/Vomiting Pantoprazole Sodium (Protonix Ec Tab) 40 mg PO DAILY [facility] Last Admin: 01/30/17 09:51 Dose: Not Given Rivaroxaban (Xarelto) 10 mg PO DAILY [facility] Tiotropium [place] (Spiriva) 18 mcg INH RQ24 [facility] Tiotropium [place] (Spiriva Inhalation Handihaler Device) 1 inhaler INH ONCE ONE Stop: 01/31/17 08:01 Results - Vital Signs Recent Vital Signs: Last Vital Signs Temp 97.7 F 01/31/17 00:00 Pulse 78 01/31/17 00:00 Resp 20 01/31/17 00:00 BP 116/68 01/31/17 00:00 Pulse Ox 95 01/31/17 00:00 - Labs Result Diagrams: 01/30/17 06:49 01/30/17 06:49 Labs: Laboratory Results - last 24 hr 01/30/17 01/30/17 01/30/17 03:44 06:47 06:49 WBC RBC Hgb Hct MCV MCH MCHC RDW Plt Count MPV Neut % (Auto) Lymph % (Auto) [place] % (Auto) Eos % (Auto) Baso % (Auto) Neut # Lymph # [place] # Eos # Baso # Neutrophils % (Manual) Lymphocytes % (Manual) Monocytes % (Manual) Platelet Estimate Hypochromasia (manual) Anisocytosis (manual) Ovalocytes APTT Sodium Potassium Chloride Carbon Dioxide Anion Gap BUN Creatinine Est GFR ( Amer) Est GFR (Non-Af Amer) POC Glucose (mg/dL) 178 H Random Glucose Hemoglobin A1c Calcium Phosphorus Magnesium Total Bilirubin AST ALT Alkaline Phosphatase Total Creatine Kinase 185 H 206 H CK-MB (Mass) 1.85 2.27 Troponin I, Quant 0.0830 0.0670 Total Protein Albumin Globulin Albumin/Globulin Ratio Triglycerides 70 Cholesterol 147 LDL Cholesterol Direct 54 HDL Cholesterol 50 Thyroxine (T4) 7.24 TSH 3rd Generation 0.82 Urine Color Urine Clarity Urine pH Ur Specific [place] Urine Protein Urine Glucose (UA) Urine Ketones Urine Blood Urine Nitrate Urine Bilirubin Urine Urobilinogen Ur Leukocyte Esterase Urine WBC (Auto) Urine RBC (Auto) Ur Squamous Epith Cells Ur Random Creatinine U Random Total Protein 01/30/17 01/30/17 01/30/17 06:49 06:49 06:49 WBC 4.7 L RBC 3.34 L Hgb 9.7 L Hct 29.3 L MCV 87.7 MCH 28.9 MCHC 33.0 RDW 15.2 H Plt Count 114 L MPV 8.9 Neut % (Auto) 94.7 H Lymph % (Auto) 2.9 L [place] % (Auto) 2.2 Eos % (Auto) 0.1 Baso % (Auto) 0.1 Neut # 4.4 Lymph # 0.1 L [place] # 0.1 Eos # 0.0 Baso # 0.0 Neutrophils % (Manual) 97 H Lymphocytes % (Manual) 2 L Monocytes % (Manual) 1 Platelet Estimate Slightly decreased L Hypochromasia (manual) Slight Anisocytosis (manual) Slight Ovalocytes Slight APTT Sodium 138 Potassium 4.2 Chloride 100 Carbon Dioxide 27 Anion Gap 15 BUN 32 H Creatinine 1.5 Est GFR ( Amer) 54 Est GFR (Non-Af Amer) 45 POC Glucose (mg/dL) Random Glucose 172 H Hemoglobin A1c 6.1 Calcium 8.0 L Phosphorus 3.0 Magnesium 2.0 Total Bilirubin 0.6 AST 27 ALT 19 L D Alkaline Phosphatase 78 Total Creatine Kinase CK-MB (Mass) Troponin I, Quant Total Protein 6.5 Albumin 3.6 Globulin 2.9 Albumin/Globulin Ratio 1.2 Triglycerides Cholesterol LDL Cholesterol Direct HDL Cholesterol Thyroxine (T4) TSH 3rd Generation Urine Color Urine Clarity Urine pH Ur Specific [place] Urine Protein Urine Glucose (UA) Urine Ketones Urine Blood Urine Nitrate Urine Bilirubin Urine Urobilinogen Ur Leukocyte Esterase Urine WBC (Auto) Urine RBC (Auto) Ur Squamous Epith Cells Ur Random Creatinine U Random Total Protein 01/30/17 01/30/17 01/30/17 11:25 13:41 13:41 WBC RBC Hgb Hct MCV MCH MCHC RDW Plt Count MPV Neut % (Auto) Lymph % (Auto) [place] % (Auto) Eos % (Auto) Baso % (Auto) Neut # Lymph # [place] # Eos # Baso # Neutrophils % (Manual) Lymphocytes % (Manual) Monocytes % (Manual) Platelet Estimate Hypochromasia (manual) Anisocytosis (manual) Ovalocytes APTT Sodium Potassium Chloride Carbon Dioxide Anion Gap BUN Creatinine Est GFR ( Amer) Est GFR (Non-Af Amer) POC Glucose (mg/dL) 216 H Random Glucose Hemoglobin A1c Calcium Phosphorus Magnesium Total Bilirubin AST ALT Alkaline Phosphatase Total Creatine Kinase CK-MB (Mass) Troponin I, Quant Total Protein Albumin Globulin Albumin/Globulin Ratio Triglycerides Cholesterol LDL Cholesterol Direct HDL Cholesterol Thyroxine (T4) TSH 3rd Generation Urine Color Yellow Urine Clarity Hazy Urine pH 5.0 Ur Specific [place] 1.016 Urine Protein Negative Urine Glucose (UA) 1+ H Urine Ketones Negative Urine Blood 2+ H Urine Nitrate Negative Urine Bilirubin Negative Urine Urobilinogen Normal Ur Leukocyte Esterase 2+ H Urine WBC (Auto) 3 Urine RBC (Auto) 2 Ur Squamous Epith Cells < 1 Ur Random Creatinine 95.8 U Random Total Protein Cancelled 01/30/17 01/30/17 01/30/17 13:41 14:00 14:34 WBC RBC Hgb Hct MCV MCH MCHC RDW Plt Count MPV Neut % (Auto) Lymph % (Auto) [place] % (Auto) Eos % (Auto) Baso % (Auto) Neut # Lymph # [place] # Eos # Baso # Neutrophils % (Manual) Lymphocytes % (Manual) Monocytes % (Manual) Platelet Estimate Hypochromasia (manual) Anisocytosis (manual) Ovalocytes APTT 186 H* D Sodium Potassium Chloride Carbon Dioxide Anion Gap BUN Creatinine Est GFR ( Amer) Est GFR (Non-Af Amer) POC Glucose (mg/dL) Random Glucose Hemoglobin A1c Calcium Phosphorus Magnesium Total Bilirubin AST ALT Alkaline Phosphatase Total Creatine Kinase 262 H CK-MB (Mass) 3.09 Troponin I, Quant 0.0390 Total Protein Albumin Globulin Albumin/Globulin Ratio Triglycerides Cholesterol LDL Cholesterol Direct HDL Cholesterol Thyroxine (T4) TSH 3rd Generation Urine Color Urine Clarity Urine pH Ur Specific [place] Urine Protein Urine Glucose (UA) Urine Ketones Urine Blood Urine Nitrate Urine Bilirubin Urine Urobilinogen Ur Leukocyte Esterase Urine WBC (Auto) Urine RBC (Auto) Ur Squamous Epith Cells Ur Random Creatinine U Random Total Protein 38.0 H 01/30/17 01/30/17 01/30/17 16:54 17:05 21:14 WBC RBC Hgb Hct MCV MCH MCHC RDW Plt Count MPV Neut % (Auto) Lymph % (Auto) [place] % (Auto) Eos % (Auto) Baso % (Auto) Neut # Lymph # [place] # Eos # Baso # Neutrophils % (Manual) Lymphocytes % (Manual) Monocytes % (Manual) Platelet Estimate Hypochromasia (manual) Anisocytosis (manual) Ovalocytes APTT 103 H* D Sodium Potassium Chloride Carbon Dioxide Anion Gap BUN Creatinine Est GFR ( Amer) Est GFR (Non-Af Amer) POC Glucose (mg/dL) 201 H 222 H Random Glucose Hemoglobin A1c Calcium Phosphorus Magnesium Total Bilirubin AST ALT Alkaline Phosphatase Total Creatine Kinase CK-MB (Mass) Troponin I, Quant Total Protein Albumin Globulin Albumin/Globulin Ratio Triglycerides Cholesterol LDL Cholesterol Direct HDL Cholesterol Thyroxine (T4) TSH 3rd Generation Urine Color Urine Clarity Urine pH Ur Specific [place] Urine Protein Urine Glucose (UA) Urine Ketones Urine Blood Urine Nitrate Urine Bilirubin Urine Urobilinogen Ur Leukocyte Esterase Urine WBC (Auto) Urine RBC (Auto) Ur Squamous Epith Cells Ur Random Creatinine U Random Total Protein Assessment & Plan - Assessment and Plan (Free Text) Assessment: Patient seen and evaluated with the medical doctor Agree with the management plan
--- NOTE | 2017-01-30 19:26 | CP.PCM.PN ---
Subjective - Date & Time of Evaluation Date of Evaluation: 01/30/17 Time of Evaluation: 19:24 - Subjective Subjective: 81 year old male admitted with resp complaints found to have [place] R side due to pelvic mass seen on us. Cteatine is 1.[address] ab+PEL psa further recomendations with results Objective - Vital Signs/Intake and Output Vital Signs (last 24 hours): Temp Pulse Resp BP Pulse Ox 97.8 F 68 20 121/59 L 97 01/30/17 15:00 01/30/17 15:00 01/30/17 15:00 01/30/17 15:00 01/30/17 15:00 - Medications Medications: Current Medications Albuterol/Ipratropium (Duoneb 3 Mg/0.5 Mg (3 Ml) Ud) 3 ml INH RQ6 [facility] Last Admin: 01/30/17 13:18 Dose: 3 ml Budesonide (Pulmicort Respules) 0.25 mg INH RQ12 [facility] Furosemide (Lasix) 40 mg IVP BID [facility] Last Admin: 01/30/17 13:43 Dose: 40 mg Insulin Human Regular (Novolin R) 0 unit SC ACHS [facility] PRN Reason: Protocol Last Admin: 01/30/17 18:33 Dose: 3 unit Methylprednisolone (Solu-Medrol) 40 mg IVP Q8H [facility] Last Admin: 01/30/17 18:35 Dose: 40 mg Morphine Sulfate (Morphine) 1 mg IVP Q4H PRN PRN Reason: Pain, severe (8-10) Ghpsu-6-[id number] Ethyl Esters (Lovaza) 1 gm PO DAILY [facility] Last Admin: 01/30/17 09:51 Dose: Not Given Ondansetron HCl (Zofran Inj) 4 mg IVP Q6 PRN PRN Reason: Nausea/Vomiting Pantoprazole Sodium (Protonix Ec Tab) 40 mg PO DAILY [facility] Last Admin: 01/30/17 09:51 Dose: Not Given Rivaroxaban (Xarelto) 10 mg PO DAILY [facility] Tiotropium [place] (Spiriva) 18 mcg INH RQ24 [facility] Tiotropium [place] (Spiriva Inhalation Handihaler Device) 1 inhaler INH ONCE ONE Stop: 01/31/17 08:01 - Labs Labs: 01/30/17 06:49 01/30/17 06:49 PT 13.6 SECONDS (9.7-12.2) H 01/29/17 23:07 INR 1.2 01/29/17 23:07 APTT 103 SECONDS (21-34) H* D 01/30/17 17:05
[2017-01-30] MEDS: Budesonide 0.25 mg/2 ml Inhal Susp UD INH SCH (19:49)
[2017-01-31] MEDS: Albuterol-Ipratrop 3 mg / 0.5 (3 ml) UD INH SCH ×4 (01:00→19:12)
[2017-01-31] MEDS: MethylPREDNISolone 40 mg Vial IVP SCH ×2 (02:37→11:17)
[2017-01-31] MEDS: Budesonide 0.25 mg/2 ml Inhal Susp UD INH SCH ×2 (07:19→19:12)
[2017-01-31] MEDS: Tiotropium 18 mcg Cap For Inhalation INH SCH (07:19)
--- NOTE | 2017-01-31 07:44 | CP.PCM.PN ---
<Nicky Laws - Last Filed: 01/31/17 16:52> Subjective - Date & Time of Evaluation Date of Evaluation: 01/31/17 Time of Evaluation: 09:00 - Subjective Subjective: PGY1 Medicine note for Dr. Lomax Pt seen and examined at bedside. Nursing reports no adverse events overnight. Today, patient is lying down in bed and his breathing is audible. Pt states his breathing is fine but that his cough is bothering him. He states he is coughing up copious amounts of white phlegm and has not been able to sleep well because of it. Pt denies fever, chills, headache, dizziness, chest pain, palpitations, nausea, vomiting, dysuria or urinary retention. Objective - Vital Signs/Intake and Output Vital Signs (last 24 hours): Temp Pulse Resp BP Pulse Ox 97.7 F 74 20 116/68 95 01/31/17 00:00 01/31/17 00:00 01/31/17 00:00 01/31/17 00:00 01/31/17 00:00 - Medications Medications: Current Medications Albuterol/Ipratropium (Duoneb 3 Mg/0.5 Mg (3 Ml) Ud) 3 ml INH RQ6 [facility] Last Admin: 01/31/17 07:19 Dose: 3 ml Budesonide (Pulmicort Respules) 0.25 mg INH RQ12 [facility] Last Admin: 01/31/17 07:19 Dose: 0.25 mg Furosemide (Lasix) 20 mg IVP BID [facility] Insulin Human Regular (Novolin R) 0 unit SC ACHS [facility] PRN Reason: Protocol Last Admin: 01/30/17 22:10 Dose: Not Given Methylprednisolone (Solu-Medrol) 40 mg IVP Q8H [facility] Last Admin: 01/31/17 02:37 Dose: 40 mg Morphine Sulfate (Morphine) 1 mg IVP Q4H PRN PRN Reason: Pain, severe (8-10) [id number]-7-[id number] Ethyl Esters (Lovaza) 1 gm PO DAILY [facility] Last Admin: 01/30/17 09:51 Dose: Not Given Ondansetron HCl (Zofran Inj) 4 mg IVP Q6 PRN PRN Reason: Nausea/Vomiting Pantoprazole Sodium (Protonix Ec Tab) 40 mg PO DAILY [facility] Last Admin: 01/30/17 09:51 Dose: Not Given Rivaroxaban (Xarelto) 10 mg PO DAILY [facility] Tiotropium [place] (Spiriva) 18 mcg INH RQ24 [facility] Last Admin: 01/31/17 07:19 Dose: Not Given Tiotropium [place] (Spiriva Inhalation Handihaler Device) 1 inhaler INH ONCE ONE Stop: 01/31/17 08:01 - Labs Labs: 01/30/17 06:49 01/30/17 06:49 PT 13.6 SECONDS (9.7-12.2) H 01/29/17 23:07 INR 1.2 01/29/17 23:07 APTT 103 SECONDS (21-34) H* D 01/30/17 17:05 - Constitutional Appears: Non-toxic, No Acute Distress - Head Exam Head Exam: ATRAUMATIC, NORMAL INSPECTION, NORMOCEPHALIC - Eye Exam Eye Exam: Normal appearance. absent: Conjunctival injection, Scleral icterus - ENT Exam ENT Exam: Mucous Membranes Moist - Respiratory Exam Respiratory Exam: Prolonged Expiratory Phase, Rhonchi, Wheezes, NORMAL BREATHING PATTERN. absent: Accessory Muscle Use, Clear to Ausculation Bilateral , Respiratory Distress - Cardiovascular Exam Cardiovascular Exam: REGULAR RHYTHM, +S1, +S2. absent: Murmur - GI/Abdominal Exam GI & Abdominal Exam: Soft, Normal Bowel Sounds. absent: Firm, Guarding, Rigid, Tenderness - Extremities Exam Extremities Exam: Normal Inspection. absent: Pedal Edema - Back Exam Back Exam: NORMAL INSPECTION. absent: rash noted - Neurological Exam Neurological Exam: Alert, Awake, Oriented x3 - Psychiatric Exam Psychiatric exam: Normal Affect, Normal Mood - Skin Skin Exam: Dry, Intact, Normal Color, Warm Assessment and Plan - Assessment and Plan (Free Text) Assessment: 81 M with PMH of Dm, COPD, Hyperlipidemia, Abdominal Aortic Aneurysm with Stent , history of paroxysmal afib, presents to [facility] ED for complaint of SOB and chest pain Plan: COPD exacerbation with underlying cor pulmonale D dimer 3507 BNP 2560 Troponin negative x 3 CXR: mild venous congestion; R hilar prominence and L central venous catheter; R paratracheal airspace opacity likely represents prominent vasculature. Small nodular denisty at the right lung base. V/Q scan low probability for PE Morphine 1 mg IVP Q4H PRN Zofran 4 mg IVP Q6H PRN Lasix 20mg IVP BID ECHO: LV mildly dilated. mild to mod concentric LVH. EF > 55%. L atrium mod dilated. RV systolic pressure estimated at 50-60mmHg. Severe pulmonary HTN. lipid panel WNL TSH/T4 WNL O2 via [place] Cardio consult, Dr. Lafleur, help appreciated Pulm consult, Dr. Hou, help appreciated. COPD Pulm consult, Dr. Hou, help appreciated Prednisone 30mg po bid Pulmicort 0.25mg INH Q12 [facility] 18mcg INH Q24 Duoneb RQ6H blood culture prelim negative B/l common iliac A aneurysm CT Abd/pelvis w/o contrast: obstructive hydronephrosis on R secondary to markedly enlarged R common iliac A aneurysm measuring up to 8.2cm. Additionally 5cm L common iliac A anurysm. Relatively stable infrarenal abdominal aortic aneurysm Dr. Augustine consulted- f/u reccs ALEJANDRO Nephro consult, Dr. Duran on board Urology Dr. Fernando on board Renal US: severe unilateral R sided hydronephrosis. large R lower quadrant and pelvic mass likely related to findings. Monitor BUN/Cr HTN Home meds listed in EMR but unconfirmed - Hold for now: Norvasc 5mg PO daily Bystolic 10mg PO daily Lasix 40mg PO daily Losartan 50mg PO daily Diabetes mellitus ISS Accuchecks ACHS Paroxsymal AFib Xarelto 10mg po daily Prophylactic measure SCDs Protonix 40 mg PO daily Morphine 1mg IVP Q4 prn pain severe Zofran 4mg IVP Q6 PRN nausea/vomiting Heart healthy diet Plan discussed with Dr. Monie Laws PGY1 <Fracisco Lomax Jr. - Last Filed: 02/02/17 11:14> Objective - Vital Signs/Intake and Output Vital Signs (last 24 hours): Temp Pulse Resp BP Pulse Ox 97.6 F 83 16 133/80 91 L 02/02/17 00:00 02/02/17 06:40 02/02/17 06:40 02/02/17 06:21 02/02/17 06:30 Intake and Output: 02/02/17 02/02/17 06:59 18:59 Intake Total 1056 88 Output Total 913 83 Balance 143 5 - Medications Medications: Current Medications Acetylcysteine (Acetylcysteine 20%) 6 ml PO Q12 [facility] Stop: 02/03/17 22:01 Last Admin: 02/02/17 10:50 Dose: 6 ml Albuterol/Ipratropium (Duoneb 3 Mg/0.5 Mg (3 Ml) Ud) 3 ml INH RQ6 [facility] Last Admin: 02/02/17 07:58 Dose: 3 ml Amiodarone HCl (Cordarone) 200 mg PO DAILY [facility] Last Admin: 02/02/17 09:59 Dose: 200 mg Budesonide (Pulmicort Respules) 0.25 mg INH RQ12 [facility] Last Admin: 02/02/17 07:58 Dose: 0.25 mg Diltiazem HCl (Cardizem) 60 mg PO Q8H [facility] Last Admin: 02/02/17 10:02 Dose: 60 mg Furosemide (Lasix) 20 mg PO BID [facility] Heparin Sodium/Sodium Chloride (Heparin 43111 Units/250ml 1/2 Normal Saline) 25 ,000 units in 250 mls @ 0 mls/hr IV .Q0M PRN; Protocol; Per Protocol PRN Reason: PROTOCOL Last Titration: 02/02/17 08:07 Dose: 9 u/kg/hr, 6.042 mls/hr Sodium Chloride (Sodium Chloride 0.9%) 1,000 mls @ 75 mls/hr IV .[id number] [facility] Last Admin: 02/02/17 00:00 Dose: Not Given Diltiazem HCl 125 mg/ Dextrose 125 mls @ 7.5 mls/hr IV .[id number] [facility]; 7.5 MG/HR PRN Reason: Protocol Last Admin: 02/02/17 06:00 Dose: Not Given Sodium Phosphate 15 mmole/ (Sodium Chloride) 255 mls @ 50 mls/hr IVPB .Q5H6M ONE Stop: 02/02/17 12:46 Last Admin: 02/02/17 10:28 Dose: 50 mls/hr Insulin Human Regular (Novolin R) 0 unit SC ACHS [facility] PRN Reason: Protocol Last Admin: 02/02/17 07:43 Dose: Not Given Methylprednisolone (Solu-Medrol) 40 mg IVP Q12H [facility] Morphine Sulfate (Morphine) 1 mg IVP Q4H PRN PRN Reason: Pain, severe (8-10) [id number]-4-[id number] Ethyl Esters (Lovaza) 1 gm PO DAILY [facility] Last Admin: 02/02/17 10:00 Dose: 1 gm Ondansetron HCl (Zofran Inj) 4 mg IVP Q6 PRN PRN Reason: Nausea/Vomiting Pantoprazole Sodium (Protonix Ec Tab) 40 mg PO DAILY [facility] Last Admin: 02/02/17 10:00 Dose: 40 mg Rivaroxaban (Xarelto) 10 mg PO DAILY [facility] Last Admin: 02/01/17 10:00 Dose: 10 mg Tiotropium [place] (Spiriva) 18 mcg INH RQ24 [facility] Last Admin: 02/02/17 10:18 Dose: 18 mcg - Labs Labs: 02/02/17 06:22 02/02/17 06:22 PT 11.7 SECONDS (9.7-12.2) 01/31/17 07:49 INR 1.0 01/31/17 07:49 APTT 134 SECONDS (21-34) H* D 02/02/17 06:22 Attending/Attestation - Attestation I have personally seen and examined this patient.: Yes I have fully participated in the care of the patient.: Yes I have reviewed all pertinent clinical information, including history, physical exam and plan: Yes Notes (Text): 02/02/17 11:13 Agree with resident's note and plan of care
--- NOTE | 2017-01-31 07:56 | CARD ---
APPROVED REPORT EXAM: Two-dimensional and M-mode echocardiogram with Doppler and color Doppler. Other Information Quality : GoodTechnically LimitedRhythm : NSR INDICATION Atrial Fibrillation Chest Pain COPD Palpitations RISK FACTORS Hyperlipidemia Diabetes M-Mode DIMENSIONS Left Atrium (MM)4.43 (2.5-4.0cm)IVSd1.29 (0.7-1.1cm) Aortic Root2.99 (2.2-3.7cm)LVDd6.75 (4.0-5.6cm) Aortic Cusp Exc.1.69 (1.5-2.0cm)PWd1.25 (0.7-1.1cm) FS (%) 27 %LVDs4.94 (2.0-3.8cm) LVEF (%)51 (>50%) Mitral Valve MV E Swsepazs89.5cm/sMV A Diybhrwi34.5cm/sE/A ratio1.3 TDI E/Lateral E'0.0E/Medial E'0.0 Tricuspid Valve TR Peak [id number]/sTR Peak Gr.[id number] LEFT VENTRICLE The Left Ventricle is mildly dilated. There is mild to moderate concentric left ventricular hypertrophy. The left ventricular function is normal. The left ventricular ejection fraction is within the normal range. The Ejection Fraction is >55%. No regional wall motion abnormalities noted. The left ventricular diastolic function is normal. No left ventricle thrombus noted on this study. There is no ventricular septal defect visualized. There is no left ventricular aneurysm. There is no mass noted in the left ventricle. RIGHT VENTRICLE The right ventricle is normal size. There is normal right ventricular wall thickness. The right ventricular systolic function is normal. ATRIA The left atrium is moderately dilated. The right atrium size is normal. The interatrial septum is intact with no evidence for an atrial septal defect. AORTIC VALVE The aortic valve is normal in structure and function. No aortic regurgitation is present. There is no aortic valvular stenosis. There is no aortic valvular vegetation. MITRAL VALVE The mitral valve is normal in structure and function. There is no evidence of mitral valve prolapse. There is no mitral valve stenosis. There is no mitral valve regurgitation noted. TRICUSPID VALVE The tricuspid valve is normal in structure and function. There is mild to moderate tricuspid regurgitation. Right ventricular systolic pressure is estimated at 50-60 mmHg. There is severe pulmonary hypertension. There is no tricuspid valve prolapse or vegetation. There is no tricuspid valve stenosis. PULMONIC VALVE The pulmonary valve is normal in structure and function. There is no pulmonic valvular regurgitation. There is no pulmonic valvular stenosis. GREAT VESSELS The aortic root is normal in size. The ascending aorta is normal in size. The pulmonary artery is normal. The IVC is normal in size and collapses >50% with inspiration. PERICARDIAL EFFUSION The pericardium appears normal. There is no pleural effusion. <Conclusion> The Left Ventricle is mildly dilated. There is mild to moderate concentric left ventricular hypertrophy. The Ejection Fraction is >55%. The left atrium is moderately dilated. Right ventricular systolic pressure is estimated at 50-60 mmHg. There is severe pulmonary hypertension.
[2017-01-31 08:00] LABS: HEMATOCRIT 30.1 % (35.0-51.0); LYMPH # 0.2 K/uL (1.0-4.3); LYMPH % 1.7 % (20.0-40.0); MEAN CELL VOLUME 87.5 fL (80.0-94.0); MEAN CORPUSCULAR HEMOGLOBIN 28.5 pg (27.0-31.0); MEAN CORPUSCULAR HGB CONC 32.6 g/dL (33.0-37.0); MEAN PLATELET VOLUME 9.2 fL (7.2-11.7); MONO # 0.4 K/uL (0.0-0.8); MONO % 4.6 % (0.0-10.0); PLATELET COUNT 114 K/uL (130-400); RED CELL DISTRIBUTION WIDTH 15.3 % (11.5-14.5)
--- NOTE | 2017-01-31 08:05 | CON ---
DATE: 01/30/2017 HISTORY OF PRESENT ILLNESS: An 81-year-old male with past medical history of diabetes, COPD, hyperli pidemia; abdominal aortic aneurysm, status post repair; paroxysmal atrial fibrillation, presented yes terday with shortness of breath and chest pain. Found to have worsening renal function. Nephrology service, therefore, being consulted. On interviewing patient, he reports that ambulance was called a fter he fell in the bathroom. Denies losing consciousness. Denies any prodrome of feeling dizzy or having palpitations. Denies any shortness of breath; however, per patient record, this was his initi al presenting complaint. The patient does report intermittent swelling in legs, although not lately as he taking a diuretic pill. Denies any change in urination with no increased urinary frequency (sa ys he gets up 1-2 times per night to urinate). Ambulation is overall limited due to fatigue. The pa tient otherwise reports having good appetite, eating well. Denies any nausea, vomiting or diarrhea. PAST MEDICAL HISTORY: As above. SOCIAL HISTORY: Previous smoker. FAMILY HISTORY: Mother with throat CA. Brother with CAD. REVIEW OF SYSTEMS: CONSTITUTIONAL: Good appetite. HEENT: No upper respiratory symptoms. No difficulty swallowing. No change in vision lately. RESPIRATORY: Denying shortness of breath currently. CARDIOVASCULAR: Denies any chest pains or palpitations. GASTROINTESTINAL: Reports normal bowel movements. Denies any bleeding per rectum. GENITOURINARY: As mentioned in HPI. Denies any hematuria. EXTREMITIES: Intermittent leg swelling. SKIN: Denies any itching, rashes or bruises. HEMATOLOGIC: Denies easy bruising. Denies any bleeding. PSYCHIATRIC: Denies any depression or anxiety. NEUROLOGIC: Denies any headaches or dizziness. PHYSICAL EXAMINATION: VITAL SIGNS: This morning, blood pressure 112/67, heart rate 70, respirations 20, O2 sat 97% on 3 li ters via nasal cannula. GENERAL: No distress. Lying flat in bed comfortably on nasal cannula. HEENT: Moist mucous membranes. Nonicteric. RESPIRATORY: Marked diffuse expiratory wheezes. No rhonchi, no rales. HEART: S1, S2 normal, regular rate and rhythm. GASTROINTESTINAL: Abdomen soft, nontender, nondistended. GENITOURINARY: No bladder distention. DISTAL PULSES: Left dorsalis pedis pulse 2+, right DP pulse faint, left femoral bruit audible, right femoral pulse faint. No abdominal bruits. SKIN: Warm. No cyanosis. PSYCHIATRIC: Normal mood, normal affect. NEUROLOGIC: 5/5 motor strength in bilateral upper and lower extremities. LABORATORY DATA: This morning, CBC: WBC 4.7, hemoglobin 9.7, hematocrit 29.3, platelets 114. Chemi stry panel: Sodium 138, potassium 4.2, chloride 100, bicarb 27, BUN 32, creatinine 1.5, glucose 172, calcium 8.0. Albumin 3.6. UA: Specific gravity 1.016, 1+ glucose, 2+ blood, negative protein, 2+ leukocyte esterase, 3 WBCs per high-powered field, 2 RBCs per high-powered field. Urine protein to c reatinine ratio approximately 396 mg/gram. ASSESSMENT AND PLAN: 1. Acute kidney injury likely secondary to prerenal etiology with renal function improving after corey ng given volume repletion in the Emergency Room and overnight. Serum creatinine decreasing from 2.0 to 1.5 which appears to be around his baseline. Appears relatively euvolemic on exam with just mild lower extremity edema. The patient does have jugular venous distention; however, previous echocardio gram mentioned severe pulmonary hypertension. Prerenal etiology likely due to diuresis ____ along wi th patient being on the angiotensin receptor dax losartan, along with possible decreased p.o. int [place] in the setting of acute illness. The patient with history of severe atherosclerotic disease and likely has underlying renovascular disease which makes him susceptible to any hemodynamic changes. A gree with stopping IV fluids. If concern exists that patient will develop sodium retention, especial ly while getting IV Solu-Medrol at a high dose, can put patient on p.o. Lasix 40 mg twice a day to of fset this. 2. Chronic kidney disease, stage IIIb. The patient with right kidney that appears to be completely effaced due to cystic changes both on ultrasound done today as well as on the previous CAT scan done 2 years ago. Ultrasound report mentioning severe right hydronephrosis, but unclear whether anything can be done about this. A more definitive study to look for hydronephrosis would be a renal Lasix s can which would reveal any underlying obstruction as well as give a differential as to the percentage function of each kidney. Agree with urology consult for further assessment. 3. Hypertension. Unclear what regimen patient was on at home; however, would restart meds gradually to avoid compromising renal perfusion. Dante Duran MD cc: [id number] TT: 01/31/2017 08:05:12 Confirmation # [id number] Dictation # [id number] mn
[2017-01-31 08:29] LABS: CHLORIDE 101 mmol/L (98-107)
[2017-01-31 08:30] LABS: POTASSIUM 4.1 mmol/L (3.6-5.2); SODIUM 138 mmol/L (132-148)
[2017-01-31 08:32] LABS: ALB/GLOB RATIO 1.2 (1.0-2.1); AST/SGOT 34 U/L (17-59); BILIRUBIN,TOTAL 0.5 mg/dL (0.2-1.3); CARBON DIOXIDE 29 mmol/L (22-30); GFR AFRICAN-AMERICAN > 60; TOTAL PROTEIN 6.5 g/dL (6.3-8.3)
[2017-01-31 08:33] LABS: ALKALINE PHOSPHATASE 73 U/L (38-126); ALT/SGPT 22 U/L (21-72); BLOOD UREA NITROGEN 30 mg/dL (9-20); CALCIUM 8.1 mg/dl (8.6-10.4); GLUCOSE,RANDOM 171 mg/dL (75-110); PHOSPHOROUS 2.7 mg/dL (2.5-4.5)
--- NOTE | 2017-01-31 08:44 | CARD ---
APPROVED REPORT EKG Measurement Heart [id number] ND 176P [id number] <Conclusion> Sinus tachycardia with premature supraventricular complexes Right bundle branch block Inferior infarct, age undetermined Abnormal ECG
[2017-01-31] MEDS: (Novolin R) Insulin Human Regular 100 units/ml vial SC SCH ×4 (09:15→22:02)
[2017-01-31] MEDS: Omega-3-Acid Ethyl Esters 1 GM Cap PO SCH (09:16)
[2017-01-31] MEDS: Pantoprazole 40 mg EC Tab PO SCH (09:16)
[2017-01-31 09:39] LABS: NEUTROPHIL 83 % (50-75); TOTAL CELLS COUNTED 101
--- NOTE | 2017-01-31 10:00 | CT ---
PROCEDURE: CT Abdomen and Pelvis without intravenous contrast HISTORY: abnl renal u/s COMPARISON: 05/15/2015 TECHNIQUE: Technique. Contrast Dose: Radiation dose: Total exam DLP = 394 mGy-cm. This CT exam was performed using one or more of the following dose reduction techniques: Automated exposure control, adjustment of the mA and/or kV according to patient size, and/or use of iterative reconstruction technique. FINDINGS: LOWER THORAX: Unremarkable. LIVER: 2 centimeter right hepatic cyst. No gross lesion or ductal dilatation. GALLBLADDER AND BILE DUCTS: Unremarkable. PANCREAS: Unremarkable. No gross lesion or ductal dilatation. SPLEEN: Unremarkable. ADRENALS: Unremarkable. No mass. KIDNEYS AND URETERS: Severe renal atrophy on the right with severe hydronephrosis and hydroureter. VASCULATURE: Stable 3.4 x 4.5 centimeter infrarenal abdominal aortic aneurysm with extensive tortuosity. Large right common iliac artery aneurysm which may be thrombosed measuring 8.2 centimeters as well as a 5 centimeter left common iliac artery aneurysm. Status post graft replacement. BOWEL: Extensive colonic diverticulosis. APPENDIX: Unremarkable. Normal appendix. PERITONEUM: Unremarkable. No free fluid. No free air. LYMPH NODES: Unremarkable. No enlarged lymph nodes. BLADDER: Unremarkable. REPRODUCTIVE: Unremarkable. BONES: No acute fracture. OTHER FINDINGS: None. IMPRESSION: Obstructive hydro nephrosis on the right secondary to markedly enlarged right common iliac artery aneurysm measuring up to 8.2 centimeters. Additional 5 centimeter left common iliac artery aneurysm. Relatively stable infrarenal abdominal aortic aneurysm.
--- NOTE | 2017-01-31 12:41 | CP.PCM.PN ---
Subjective - Date & Time of Evaluation Date of Evaluation: 01/31/17 Time of Evaluation: 08:30 - Subjective Subjective: Patient seen and examined. Shortness of breath and cough much improved Denies fevers chills, denies chest pain Objective - Vital Signs/Intake and Output Vital Signs (last 24 hours): Temp Pulse Resp BP Pulse Ox 97.7 F 84 20 126/70 96 01/31/17 08:21 01/31/17 08:21 01/31/17 08:21 01/31/17 08:21 01/31/17 08:21 - Medications Medications: Current Medications Albuterol/Ipratropium (Duoneb 3 Mg/0.5 Mg (3 Ml) Ud) 3 ml INH RQ6 [facility] Last Admin: 01/31/17 07:19 Dose: 3 ml Budesonide (Pulmicort Respules) 0.25 mg INH RQ12 [facility] Last Admin: 01/31/17 07:19 Dose: 0.25 mg Furosemide (Lasix) 20 mg IVP BID [facility] Insulin Human Regular (Novolin R) 0 unit SC ACHS [facility] PRN Reason: Protocol Last Admin: 01/31/17 09:15 Dose: 3 unit Methylprednisolone (Solu-Medrol) 40 mg IVP Q8H [facility] Last Admin: 01/31/17 11:17 Dose: 40 mg Morphine Sulfate (Morphine) 1 mg IVP Q4H PRN PRN Reason: Pain, severe (8-10) Dvdyf-7-Gybr Ethyl Esters (Lovaza) 1 gm PO DAILY [facility] Last Admin: 01/31/17 09:16 Dose: 1 gm Ondansetron HCl (Zofran Inj) 4 mg IVP Q6 PRN PRN Reason: Nausea/Vomiting Pantoprazole Sodium (Protonix Ec Tab) 40 mg PO DAILY [facility] Last Admin: 01/31/17 09:16 Dose: 40 mg Rivaroxaban (Xarelto) 10 mg PO DAILY [facility] Last Admin: 01/31/17 09:16 Dose: 10 mg Tiotropium [place] (Spiriva) 18 mcg INH RQ24 [facility] Last Admin: 01/31/17 07:19 Dose: Not Given - Labs Labs: 01/31/17 07:49 01/31/17 07:49 PT 11.7 SECONDS (9.7-12.2) 01/31/17 07:49 INR 1.0 01/31/17 07:49 APTT 37 SECONDS (21-34) H D 01/31/17 11:09 - Head Exam Head Exam: ATRAUMATIC, NORMOCEPHALIC - Eye Exam Eye Exam: Normal appearance - ENT Exam ENT Exam: Mucous Membranes Moist - Respiratory Exam Respiratory Exam: Rhonchi - Cardiovascular Exam Cardiovascular Exam: REGULAR RHYTHM - GI/Abdominal Exam GI & Abdominal Exam: Soft, Normal Bowel Sounds - Extremities Exam Extremities Exam: Full ROM, Normal Inspection - Neurological Exam Neurological Exam: Alert, Oriented x3 Assessment and Plan (1) COPD with exacerbation Assessment & Plan: Continue nebulizer treatment, steroids and antibiotics Consider To change it to by mouth prednisone Status: Acute
--- NOTE | 2017-01-31 13:58 | CP.PCM.PN ---
<Ellen Salguero - Last Filed: 01/31/17 13:59> Subjective - Date & Time of Evaluation Date of Evaluation: 01/31/17 Time of Evaluation: 13:56 - Subjective Subjective: PGY-[address] Lafleur Pt seen and examined. coughing and SOB improved Objective - Vital Signs/Intake and Output Vital Signs (last 24 hours): Temp Pulse Resp BP Pulse Ox 97.7 F 84 20 126/70 96 01/31/17 08:21 01/31/17 08:21 01/31/17 08:21 01/31/17 08:21 01/31/17 08:21 - Medications Medications: Current Medications Albuterol/Ipratropium (Duoneb 3 Mg/0.5 Mg (3 Ml) Ud) 3 ml INH RQ6 [facility] Last Admin: 01/31/17 13:16 Dose: 3 ml Budesonide (Pulmicort Respules) 0.25 mg INH RQ12 [facility] Last Admin: 01/31/17 07:19 Dose: 0.25 mg Furosemide (Lasix) 20 mg IVP BID [facility] Insulin Human Regular (Novolin R) 0 unit SC ACHS [facility] PRN Reason: Protocol Last Admin: 01/31/17 12:49 Dose: 8 unit Methylprednisolone (Solu-Medrol) 40 mg IVP Q8H [facility] Last Admin: 01/31/17 11:17 Dose: 40 mg Morphine Sulfate (Morphine) 1 mg IVP Q4H PRN PRN Reason: Pain, severe (8-10) Svajf-0-Oiug Ethyl Esters (Lovaza) 1 gm PO DAILY [facility] Last Admin: 01/31/17 09:16 Dose: 1 gm Ondansetron HCl (Zofran Inj) 4 mg IVP Q6 PRN PRN Reason: Nausea/Vomiting Pantoprazole Sodium (Protonix Ec Tab) 40 mg PO DAILY [facility] Last Admin: 01/31/17 09:16 Dose: 40 mg Rivaroxaban (Xarelto) 10 mg PO DAILY [facility] Last Admin: 01/31/17 09:16 Dose: 10 mg Tiotropium [place] (Spiriva) 18 mcg INH RQ24 [facility] Last Admin: 01/31/17 07:19 Dose: Not Given - Labs Labs: 01/31/17 07:49 01/31/17 07:49 PT 11.7 SECONDS (9.7-12.2) 01/31/17 07:49 INR 1.0 01/31/17 07:49 APTT 37 SECONDS (21-34) H D 01/31/17 11:09 - Head Exam Head Exam: ATRAUMATIC, NORMAL INSPECTION - Eye Exam Eye Exam: EOMI, Normal appearance Pupil Exam: NORMAL ACCOMODATION - ENT Exam ENT Exam: Mucous Membranes Moist - Respiratory Exam Respiratory Exam: Wheezes - Cardiovascular Exam Cardiovascular Exam: REGULAR RHYTHM, +S1, +S2. absent: Murmur - GI/Abdominal Exam GI & Abdominal Exam: Soft, Normal Bowel Sounds. absent: Tenderness - Extremities Exam Extremities Exam: absent: Calf Tenderness, Pedal Edema Assessment and Plan - Assessment and Plan (Free Text) Plan: 81 M with PMH of paroxysmal afib on Eliquis, DM2, COPD/ex-smoker of 50pack-yr, Hyperlipidemia, CKD 3, Abdominal Aortic Aneurysm with Stent, presents to the ED for complaint of SOB and COPD exacernation. CP was 2 months ago and pt could not articulate events leading to CP. SOB most likely from severe pulm HTN shown on echocardiogram. A-fib Hx CKD stage 3 - Xarelto 10 - Need to educate pt re: bleeding risk and fall precaution Hx CAD - EKG: Sinus tachy 114. SVC. RBBB. Q waves in inferior leads. - Home: bystolic, losartan, lasix - ON HOLD per primary team, BP 120s/70s CV risk reduction - DM controlled - consider ASA, high-dose statin COPD exacerbation Pulmonary hypertension, severe, RVSP 50-60 - managed per primary and pulm team DVT prophylasix - consider heparin SC TID Will D/S/R/w Dr. Lafleur <Maxi Lafleur - Last Filed: 02/01/17 05:20> Objective - Vital Signs/Intake and Output Vital Signs (last 24 hours): Temp Pulse Resp BP Pulse Ox 97.8 F 87 20 108/64 95 01/31/17 23:20 02/01/17 00:00 01/31/17 23:20 01/31/17 23:20 01/31/17 23:20 Intake and Output: 01/31/17 02/01/17 18:59 06:59 Intake Total 240 Output Total 200 Balance 40 - Medications Medications: Current Medications Albuterol/Ipratropium (Duoneb 3 Mg/0.5 Mg (3 Ml) Ud) 3 ml INH RQ6 [facility] Last Admin: 02/01/17 01:27 Dose: Not Given Budesonide (Pulmicort Respules) 0.25 mg INH RQ12 [facility] Last Admin: 01/31/17 19:12 Dose: 0.25 mg Furosemide (Lasix) 20 mg PO BID [facility] Insulin Human Regular (Novolin R) 0 unit SC ACHS [facility] PRN Reason: Protocol Last Admin: 01/31/17 22:02 Dose: Not Given Morphine Sulfate (Morphine) 1 mg IVP Q4H PRN PRN Reason: Pain, severe (8-10) Crdrn-7-Ktcv Ethyl Esters (Lovaza) 1 gm PO DAILY [facility] Last Admin: 01/31/17 09:16 Dose: 1 gm Ondansetron HCl (Zofran Inj) 4 mg IVP Q6 PRN PRN Reason: Nausea/Vomiting Pantoprazole Sodium (Protonix Ec Tab) 40 mg PO DAILY [facility] Last Admin: 01/31/17 09:16 Dose: 40 mg Pneumococcal Polyvalent Vaccine (Pneumovax 23 Vaccine) 0.5 ml IM .ONCE ONE Stop: 02/01/17 16:01 Prednisone (Prednisone Tab) 20 mg PO BID [facility] Last Admin: 01/31/17 18:51 Dose: 20 mg Prednisone (Prednisone Tab) 10 mg PO BID [facility] Last Admin: 01/31/17 18:51 Dose: 10 mg Rivaroxaban (Xarelto) 10 mg PO DAILY [facility] Last Admin: 01/31/17 09:16 Dose: 10 mg Tiotropium [place] (Spiriva) 18 mcg INH RQ24 [facility] Last Admin: 01/31/17 07:19 Dose: Not Given - Labs Labs: PT 11.7 SECONDS (9.7-12.2) 01/31/17 07:49 INR 1.0 01/31/17 07:49 APTT 34 SECONDS (21-34) 01/31/17 16:50 Assessment and Plan - Assessment and Plan (Free Text) Assessment: Patient seen and evaluated with the medical psychotherapist Agree with the management plan
--- NOTE | 2017-01-31 16:37 | CP.PCM.CON ---
History of Present Illness - History of Present Illness History of Present Illness: PGY-1 consult note for Vascular Surgery, Dr. Yousif HPI: Patient is an 81 yo male, with PMHx of T2DM, COPD, HTN, Hyperlipidemia , Abdominal Aortic Aneurysm with Stent repair (1999), history of paroxysmal afib , presents to [facility] ED for complaint of SOB and chest pain on 01/29. Patient states that these symptoms had been present for the previous 3 days. He has experienced these symptoms in the past. He rated chest pain as 7/10 in severity. He describes it as a constant heaviness located in chest bilaterally. Patient denies any exacerbating or alleviating factors for the pain but exertion makes his breathing worse. His last ECHO was in 09/2015 which showed normal EF at that time. Admits to chills, fatigue, palpitations, nausea. Denies fever, dizziness/lightheadedness, syncope, vertigo, headache, abd pain, vomiting , diarrhea, constipation, weakness, numbness/tingling, incontinence. Surgery was consulted on 01/31/17 for iliac artery aneurysm. CT showed 3.4 x 4.5 cm infrarenal abdominal aortic aneurysm with extensive tortuousity. 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 Status post graft replacement. Patient denies current chest pain, SOB, abdominal pain, N/V, but admits to leg pain with long walks, that improves with rest. PMH: see above PSH: Abdominal Aortic Aneurysm Stent (1999), Incarcerated hernia repair 05/2015 Allergies: NKDA Hosp: Admission at [facility] in 2016 (SOB, Fall) FH: Mother -Throat CA, brother - CAD Social: > 50 pack years - Quit 15 years ago, denies ETOH/illicit drug use, uses rolling walker at home. Review of Systems - Constitutional Constitutional: absent: Chills, Fever - EENT Eyes: absent: Change in Vision Ears: absent: Decreased Hearing - Cardiovascular Cardiovascular: absent: Chest Pain, Dyspnea - Respiratory Respiratory: absent: Cough, Dyspnea, Dyspnea on Exertion - Gastrointestinal Gastrointestinal: absent: Abdominal Pain, Nausea, Vomiting - Genitourinary Genitourinary: absent: Dysuria - Musculoskeletal Musculoskeletal: absent: Back Pain, Numbness, Tingling - Neurological Neurological: absent: Tingling, Weakness Past Patient History - Past Medical History & Family History Past Medical History?: No - Past Social History Smoking Status: Former Smoker - CARDIAC Hx Hypercholesterolemia: Yes Hx Hypertension: Yes - PULMONARY Hx Chronic Obstructive Pulmonary Disease (COPD): Yes - NEUROLOGICAL Hx Neurological Disorder: No - HEENT Hx Cataracts: Yes (5-YRS AGO) - RENAL Other/Comment: Pre renal - ENDOCRINE/METABOLIC Hx Diabetes Mellitus Type 2: Yes - HEMATOLOGICAL/ONCOLOGICAL Hx Anemia: Yes - INTEGUMENTARY Hx Dermatological Problems: No - MUSCULOSKELETAL/RHEUMATOLOGICAL Hx Arthritis: Yes - GASTROINTESTINAL Hx Gastrointestinal Disorders: No - GENITOURINARY/GYNECOLOGICAL Hx Prostate Problems: Yes (Enlarged Prostate) - PSYCHIATRIC Hx Substance Use: No - SURGICAL HISTORY Hx Surgeries: Yes Hx Abdominal Aortic Aneurysm Repair: Yes (1999) Hx Cataract Extraction: Yes - ANESTHESIA Hx Anesthesia: Yes Hx Anesthesia Reactions: No Meds Allergies/Adverse Reactions: Allergies Allergy/AdvReac Type Severity Reaction Status Date / Time No Known Allergies Allergy Verified 01/29/17 22:16 - Medications Medications: Current Medications Albuterol/Ipratropium (Duoneb 3 Mg/0.5 Mg (3 Ml) Ud) 3 ml INH RQ6 [facility] Last Admin: 01/31/17 13:16 Dose: 3 ml Budesonide (Pulmicort Respules) 0.25 mg INH RQ12 [facility] Last Admin: 01/31/17 07:19 Dose: 0.25 mg Furosemide (Lasix) 20 mg IVP BID [facility] Insulin Human Regular (Novolin R) 0 unit SC ACHS [facility] PRN Reason: Protocol Last Admin: 01/31/17 12:49 Dose: 8 unit Morphine Sulfate (Morphine) 1 mg IVP Q4H PRN PRN Reason: Pain, severe (8-10) [place]ikoc-0-Gbrb Ethyl Esters (Lovaza) 1 gm PO DAILY [facility] Last Admin: 01/31/17 09:16 Dose: 1 gm Ondansetron HCl (Zofran Inj) 4 mg IVP Q6 PRN PRN Reason: Nausea/Vomiting Pantoprazole Sodium (Protonix Ec Tab) 40 mg PO DAILY [facility] Last Admin: 01/31/17 09:16 Dose: 40 mg Pneumococcal Polyvalent Vaccine (Pneumovax 23 Vaccine) 0.5 ml IM .ONCE ONE Stop: 02/01/17 16:01 Prednisone (Prednisone Tab) 20 mg PO BID [facility] Prednisone (Prednisone Tab) 10 mg PO BID [facility] Rivaroxaban (Xarelto) 10 mg PO DAILY [facility] Last Admin: 01/31/17 09:16 Dose: 10 mg Tiotropium [place] (Spiriva) 18 mcg INH RQ24 [facility] Last Admin: 01/31/17 07:19 Dose: Not Given Physical Exam - Constitutional Appears: Non-toxic, No Acute Distress - Head Exam Head Exam: ATRAUMATIC, NORMAL INSPECTION, NORMOCEPHALIC - Eye Exam Eye Exam: EOMI Pupil Exam: PERRL - ENT Exam ENT Exam: Mucous Membranes Moist - Respiratory Exam Respiratory Exam: Clear to Auscultation Bilateral, NORMAL BREATHING PATTERN - Cardiovascular Exam Cardiovascular Exam: REGULAR RHYTHM, +S1, +S2 - GI/Abdominal Exam GI & Abdominal Exam: Normal Bowel Sounds, Soft. absent: Mass, Tenderness - Extremities Exam Extremities exam: Positive for: normal inspection. Negative for: tenderness - Back Exam Back exam: absent: CVA tenderness (L), CVA tenderness (R) - Neurological Exam Neurological exam: Alert, Oriented x3 - Psychiatric Exam Psychiatric exam: Normal Affect, Normal Mood - Skin Skin Exam: Normal Color, Warm Additional comments: Skin on right leg, cooler than right leg Results - Vital Signs Recent Vital Signs: Last Vital Signs Temp 97.5 F L 01/31/17 16:06 Pulse 79 01/31/17 16:06 Resp 20 01/31/17 16:06 BP 129/70 01/31/17 16:06 Pulse Ox 95 01/31/17 16:06 - Labs Result Diagrams: 01/31/17 07:49 01/31/17 07:49 Assessment & Plan - Assessment and Plan (Free Text) Assessment: 81 M with PMHx of Dm, COPD, Hyperlipidemia, Abdominal Aortic Aneurysm with Stent , history of paroxysmal afib, presents to [facility] ED for complaint of SOB and chest pain. CT showed 3.4 x 4.5 cm infrarenal abdominal aortic aneurysm with extensive tortuosity. 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 Status post graft replacement. Plan: - CT A/P showed 3.4 x 4.5 cm infrarenal abdominal aortic aneurysm with extensive tortuousity. 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 Status post graft replacement. - Previous AAA repair in 1999 - f/u Dr. Nica chavez D/W Dr. Nica Briones PGY-1
[2017-01-31] MEDS ORDERED: Iodixanol 320 MG/ML 100 ML BOTTLE IV ONE (20:53)
--- NOTE | 2017-01-31 23:06 | CT ---
EXAM: CT Abdomen and Pelvis Without and With Intravenous Contrast CLINICAL HISTORY: 81 years old, male; Condition or disease; Arterial aneurysm; Without rupture; Abdominal; Additional info: Eval aortoiliac aneurysm TECHNIQUE: Axial computed tomography images of the abdomen and pelvis without and with intravenous contrast during the arterial phase of enhancement. This CT exam was performed using one or more of the following dose reduction techniques: automated exposure control, adjustment of the mA and/or kV according to patient size, and/or use of iterative reconstruction technique. Coronal and sagittal reformatted images were created and reviewed. CONTRAST: 100 mL of visipaque 320 administered intravenously. EXAM DATE/TIME: 01/31/2017 7:45 PM COMPARISON: No relevant prior studies are available currently. Prior studies have been requested. FINDINGS: LOWER THORAX: Focal dense consolidation is seen in the left lung base, which is suspicious for pneumonia. VASCULATURE: AORTA: Diffuse aneurysmal dilatation of the abdominal aorta is seen, to up to 4.4 cm in diameter. This involves the supra-and infrarenal abdominal aorta. Mural thrombus is noted in the aneurysm lumen on the left. Evidence of previous repair. 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 The left iliac limb is patent. The right iliac limb appears occluded, of uncertain chronicity, but likely on a chronic bases, as the graft is small in size. No evidence of aortic dissection. CELIAC TRUNK AND MESENTERIC ARTERIES: No evidence of occlusion. RENAL ARTERIES: Right renal artery is very small in size, however, appears grossly patent. No evidence of occlusion of the left renal artery. ILIAC ARTERIES: See above regarding the bilateral aortoiliac grafts. There are very large aneurysms of the bilateral unga common iliac arteries, measuring 9 x 7 cm on the right and 6.4 x 5 cm on the left. There is delayed enhancement of both of these aneurysms, seen on the portal venous phase images, with no evidence of joe aneurysm rupture in the and aneurysm rupture. ABDOMEN: LIVER: 1.8 cm low density liver lesion, most likely a cyst. GALLBLADDER AND BILE DUCTS: No evidence of acute cholecystitis. PANCREAS: No evidence of acute pancreatitis. SPLEEN: No acute abnormality of the spleen identified. ADRENALS: No acute abnormality of the adrenal glands identified. KIDNEYS AND URETERS: Normal right kidney is not seen, and the right kidney appears to be replaced by a 10 cm cystic mass, suspicious for a chronically hydronephrotic, enlarged right kidney with marked renal cortical thinning/atrophy. There is also right hydroureteronephrosis, to the level of the distal ureter, cause not identified. STOMACH AND BOWEL: Extensive colonic diverticulosis, without evidence of acute diverticulitis. Multiple duodenal diverticula noted. Otherwise, no significant abnormality of the bowel is identified. No evidence of bowel obstruction. APPENDIX: Normal appendix is not seen, however, there are no significant inflammatory changes visualized in the expected location of the appendix to suggest appendicitis. Recommend clinical correlation. PELVIS: BLADDER: No acute abnormality of the bladder identified. REPRODUCTIVE: Enlarged prostate gland, which indents the base of the bladder. ABDOMEN and PELVIS: INTRAPERITONEAL SPACE: No evidence of significant free air or free fluid. RETROPERITONEAL SPACE: No evidence of retroperitoneal hemorrhage. . BONES/JOINTS: Marked scoliotic curvature of the spine is noted. LYMPH NODES: No evidence of diffuse lymphadenopathy. IMPRESSION: - Very large aneurysms of the unga common iliac arteries bilaterally, measuring 9 x 7 cm on the right and 6.4 x 5 cm on the left. There is delayed enhancement of these aneurysms, an abnormal finding post repair, and cannot rule out backfilling of the aneurysms by collateral vessels. There is no evidence of aneurysm rupture. - Findings suspicious for pneumonia in the left lung base. - Evidence of previous vascular bypass graft repair of the aorta. There is a vascular graft arising from the distal aorta, which has 2 iliac limbs. The right iliac limb appears occluded, likely on a chronic basis. - Findings suspicious for an enlarged, chronically hydronephrotic right kidney, associated with marked thinning of the normal right renal cortex/parenchyma. - 4.4 cm abdominal aortic aneurysm. - See above for remaining findings.
[2017-02-01] MEDS: Albuterol-Ipratrop 3 mg / 0.5 (3 ml) UD INH SCH ×4 (01:27→19:15)
--- NOTE | 2017-02-01 07:00 | CP.PCM.PN ---
Subjective - Date & Time of Evaluation Date of Evaluation: 02/01/17 Time of Evaluation: 08:45 - Subjective Subjective: RAPID RESPONSE NOTE Rapid response was called at 8:45am as nurse noticed patient tachycardic 150s- 170s Resident and Attending came to bedside immediately. Patient was sitting in bed, eating breakfast comfortably Patient was satting at 85% without O2 while he was eating Patient was given 10mg IVP cardizem and carotid massage Recheck vitals: BP 126/90 HR 155 96% NC 4L STAT EKG and CANDACE were ordered EKG showed Atrial flutter with 2:1 AV conduction L axis deviation, Pulm disease pattern, RBBB CANDACE stat ordered Final vitals: BP 100/65mmHg HR 96-140bpm O2 97% Dr. Lomax and Dr. Lafleur informed As per Dr Lafleur cardio: Patient to be started on cardizem gtt @ 5mls/hr to be titrated ICU Consult requested Dr. Tawnya Rice will be notified as per request of Dr. Lafleur D/W Dr. Monie Drakera PGY1 Objective - Vital Signs/Intake and Output Vital Signs (last 24 hours): Temp Pulse Resp BP Pulse Ox 97.8 F 87 20 108/64 95 01/31/17 23:20 02/01/17 00:00 01/31/17 23:20 01/31/17 23:20 01/31/17 23:20 Intake and Output: 02/01/17 02/01/17 06:59 18:59 Intake Total 480 Output Total 200 Balance 280 - Medications Medications: Current Medications Albuterol/Ipratropium (Duoneb 3 Mg/0.5 Mg (3 Ml) Ud) 3 ml INH RQ6 [facility] Last Admin: 02/01/17 01:27 Dose: Not Given Budesonide (Pulmicort Respules) 0.25 mg INH RQ12 [facility] Last Admin: 01/31/17 19:12 Dose: 0.25 mg Furosemide (Lasix) 20 mg PO BID [facility] Insulin Human Regular (Novolin R) 0 unit SC ACHS [facility] PRN Reason: Protocol Last Admin: 01/31/17 22:02 Dose: Not Given Morphine Sulfate (Morphine) 1 mg IVP Q4H PRN PRN Reason: Pain, severe (8-10) Thver-4-Ltso Ethyl Esters (Lovaza) 1 gm PO DAILY [facility] Last Admin: 01/31/17 09:16 Dose: 1 gm Ondansetron HCl (Zofran Inj) 4 mg IVP Q6 PRN PRN Reason: Nausea/Vomiting Pantoprazole Sodium (Protonix Ec Tab) 40 mg PO DAILY [facility] Last Admin: 01/31/17 09:16 Dose: 40 mg Pneumococcal Polyvalent Vaccine (Pneumovax 23 Vaccine) 0.5 ml IM .ONCE ONE Stop: 02/01/17 16:01 Prednisone (Prednisone Tab) 20 mg PO BID [facility] Last Admin: 01/31/17 18:51 Dose: 20 mg Prednisone (Prednisone Tab) 10 mg PO BID [facility] Last Admin: 01/31/17 18:51 Dose: 10 mg Rivaroxaban (Xarelto) 10 mg PO DAILY [facility] Last Admin: 01/31/17 09:16 Dose: 10 mg Tiotropium [place] (Spiriva) 18 mcg INH RQ24 [facility] Last Admin: 01/31/17 07:19 Dose: Not Given - Labs Labs: PT 11.7 SECONDS (9.7-12.2) 01/31/17 07:49 INR 1.0 01/31/17 07:49 APTT 34 SECONDS (21-34) 01/31/17 16:50
--- NOTE | 2017-02-01 07:04 | PN ---
DATE: 01/31/2017 NEPHROLOGY FOLLOWUP NOTE An 81-year-old male with past medical history of diabetes, COPD, hyperlipidemia, abdominal aortic ane urysm status post repair, paroxysmal AFib, admitted with COPD exacerbation. Nephrology service consu lted for acute renal failure. The patient reports feeling well. Denies any shortness of breath. Tolerating diet, able to ambulate to the bathroom without issues. PHYSICAL EXAMINATION: VITAL SIGNS: This afternoon, blood pressure 129/70, heart rate 79, respirations 20, temperature 97.5 , O2 sat 95% on 2 liters via nasal cannula. GENERAL: No distress, able to communicate coherently in full sentences. HEENT: Moist mucous membranes. Nonicteric. NECK: No JVD. RESPIRATORY: Mild left basilar rales, otherwise clear to auscultation bilaterally. HEART: S1, S2 normal, irregular rate and somewhat muffled heart sounds. ABDOMEN: Soft, nontender, nondistended. GENITOURINARY: No bladder distention. EXTREMITIES: Mild lower leg edema, right more than left. SKIN: Warmth to touch. Good capillary refill. No cyanosis. PSYCHIATRIC: Normal mood, normal affect. LABORATORY DATA: This morning, CBC: WBC 9.0, hemoglobin 9.8, hematocrit 30.1, platelets 114. Chemi stry panel: Sodium 138, potassium 4.1, chloride 101, bicarb 29, BUN 30, creatinine 1.3, glucose 171, calcium 8.1, albumin 3.5, hemoglobin A1c 6.1. ASSESSMENT: 1. Acute kidney injury, consistent with prerenal etiology with renal function improving after being given volume repletion, as well as being off of diuretics. Serum creatinine down to 1.3 today, which may be his true baseline, appears relatively euvolemic on exam. While the patient may need to be on standing diuretics due to pulmonary hypertension, would hold off for now especially as the patient j ust underwent contrast angiography study. If renal function is stable, can restart Lasix at 20 mg p. o. b.i.d. 2. Chronic kidney disease II/IIIA. 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 Would avoid any further IV dye studies for the next 48 hours. 3. Hypertension. Blood pressure currently controlled off of medications. Previously on Bystolic, l osartan and amlodipine at home. Can restart amlodipine at 5 mg daily for now. 4. Atrophic right kidney. CT abdomen report mentioning hydronephrosis secondary to compression from right common iliac aneurysm. Renal Lasix scan ordered yesterday. Would still obtain the scan in [place] to assess the function of atrophic kidney as sometimes there can be significant renal function as sociated with atrophic kidney, and in that case, the patient may benefit from urologic intervention, that is possibly ureteral stent placement. Dante Duran MD cc: [id number] TT: 01/31/2017 23:49:20 Confirmation # [id number] Dictation # [id number] mn
[2017-02-01] MEDS: Tiotropium 18 mcg Cap For Inhalation INH SCH (07:18)
[2017-02-01] MEDS: Budesonide 0.25 mg/2 ml Inhal Susp UD INH SCH ×2 (07:18→19:14)
[2017-02-01 07:36] LABS: HEMATOCRIT 30.8 % (35.0-51.0); LYMPH # 0.1 K/uL (1.0-4.3); LYMPH % 1.3 % (20.0-40.0); MEAN CELL VOLUME 88.8 fL (80.0-94.0); MEAN CORPUSCULAR HEMOGLOBIN 29.1 pg (27.0-31.0); MEAN CORPUSCULAR HGB CONC 32.7 g/dL (33.0-37.0); MEAN PLATELET VOLUME 9.3 fL (7.2-11.7); MONO # 0.6 K/uL (0.0-0.8); MONO % 6.1 % (0.0-10.0); NRBC % 0.1 % (0.0-2.0); PLATELET COUNT 113 K/uL (130-400); RED CELL DISTRIBUTION WIDTH 15.3 % (11.5-14.5); WHITE BLOOD COUNT 9.5 K/uL (4.8-10.8)
[2017-02-01] MEDS ORDERED: Sodium Chloride 0.9% 1,000 ML IV SCH (07:45)
[2017-02-01 07:53] LABS: POTASSIUM 4.8 mmol/L (3.6-5.2)
[2017-02-01 07:55] LABS: ALB/GLOB RATIO 1.2 (1.0-2.1); BILIRUBIN,TOTAL 0.6 mg/dL (0.2-1.3); TOTAL PROTEIN 6.3 g/dL (6.3-8.3)
[2017-02-01 07:56] LABS: CALCIUM 8.2 mg/dl (8.6-10.4); MAGNESIUM 2.1 mg/dL (1.6-2.3)
[2017-02-01] MEDS ORDERED: Acetylcysteine 20% Inhal Soln (4ml) PO SCH ×3 (08:00→10:00)
[2017-02-01] MEDS: (Novolin R) Insulin Human Regular 100 units/ml vial SC SCH ×4 (08:21→22:34)
[2017-02-01 08:31] LABS: NEUTROPHIL 89 % (50-75); TOTAL CELLS COUNTED 100
[2017-02-01] MEDS: Pantoprazole 40 mg EC Tab PO SCH (10:00)
[2017-02-01] MEDS: Omega-3-Acid Ethyl Esters 1 GM Cap PO SCH (10:00)
--- NOTE | 2017-02-01 10:35 | CP.PCM.PN ---
Subjective - Date & Time of Evaluation Date of Evaluation: 02/01/17 Time of Evaluation: 10:32 - Subjective Subjective: Surgery: Dr. Diaz covering for Dr. Horn Patient seen during rapid response. Patient on telemetry and noted to be in Afib w/ RVR. Medical team in room as well. Patient asymptomatic. Cardizem administered per primary team. Objective - Vital Signs/Intake and Output Vital Signs (last 24 hours): Temp Pulse Resp BP Pulse Ox 97.6 F 106 H 20 127/74 94 L 02/01/17 08:38 02/01/17 08:38 02/01/17 08:38 02/01/17 08:38 02/01/17 08:38 Intake and Output: 02/01/17 02/01/17 06:59 18:59 Intake Total 480 Output Total 200 Balance 280 - Medications Medications: Current Medications Acetylcysteine (Acetylcysteine 20%) 3 ml PO Q12H NGUYỄN Last Admin: 02/01/17 08:12 Dose: 3 ml Albuterol/Ipratropium (Duoneb 3 Mg/0.5 Mg (3 Ml) Ud) 3 ml INH RQ6 NGUYỄN Last Admin: 02/01/17 07:18 Dose: 3 ml Budesonide (Pulmicort Respules) 0.25 mg INH RQ12 NGUYỄN Last Admin: 02/01/17 07:18 Dose: 0.25 mg Furosemide (Lasix) 20 mg PO BID NGUYỄN Sodium Chloride (Sodium Chloride 0.9%) 1,000 mls @ 70 mls/hr IV .[id number] NGUYỄN Last Admin: 02/01/17 09:55 Dose: 70 mls/hr Diltiazem HCl 125 mg/ Dextrose 125 mls @ 5 mls/hr IV .Q24H NGUYỄN; 5 MG/HR PRN Reason: Protocol Last Admin: 02/01/17 10:14 Dose: 5 mg/hr, 5 mls/hr Insulin Human Regular (Novolin R) 0 unit SC ACHS NGUYỄN PRN Reason: Protocol Last Admin: 02/01/17 08:21 Dose: 2 unit Morphine Sulfate (Morphine) 1 mg IVP Q4H PRN PRN Reason: Pain, severe (8-10) Nebivolol (Bystolic) 10 mg PO DAILY NGUYỄN Tqrvc-2-Uikf Ethyl Esters (Lovaza) 1 gm PO DAILY NGUYỄN Last Admin: 02/01/17 10:00 Dose: 1 gm Ondansetron HCl (Zofran Inj) 4 mg IVP Q6 PRN PRN Reason: Nausea/Vomiting Pantoprazole Sodium (Protonix Ec Tab) 40 mg PO DAILY [facility] Last Admin: 02/01/17 10:00 Dose: 40 mg Pneumococcal Polyvalent Vaccine (Pneumovax 23 Vaccine) 0.5 ml IM .ONCE ONE Stop: 02/01/17 16:01 Prednisone (Prednisone Tab) 20 mg PO BID [facility] Last Admin: 02/01/17 10:00 Dose: 20 mg Prednisone (Prednisone Tab) 10 mg PO BID [facility] Last Admin: 02/01/17 10:00 Dose: 10 mg Rivaroxaban (Xarelto) 10 mg PO DAILY [facility] Last Admin: 02/01/17 10:00 Dose: 10 mg Tiotropium [place] (Spiriva) 18 mcg INH RQ24 [facility] Last Admin: 02/01/17 07:18 Dose: 18 mcg - Labs Labs: 02/01/17 07:22 02/01/17 07:22 PT 11.7 SECONDS (9.7-12.2) 01/31/17 07:49 INR 1.0 01/31/17 07:49 APTT 30 SECONDS (21-34) 02/01/17 07:22 - Constitutional Appears: Non-toxic, No Acute Distress, Chronically Ill - Head Exam Head Exam: ATRAUMATIC, NORMOCEPHALIC - Eye Exam Eye Exam: EOMI, Normal appearance - ENT Exam ENT Exam: Mucous Membranes Moist - Respiratory Exam Respiratory Exam: NORMAL BREATHING PATTERN. absent: Respiratory Distress - Cardiovascular Exam Cardiovascular Exam: Tachycardia, Irregular Rhythm - Neurological Exam Neurological Exam: Alert, Awake - Skin Skin Exam: Dry, Warm Assessment and Plan - Assessment and Plan (Free Text) Assessment: 81 y/o male w/ bilateral iliac aneurysm which appear to be s/p bypass graft from aorta to bilateral iliacs Plan: -CTA shows stable size in naive vessels -Right chronic iliac graft occulsion -now in a fib w/ RVR: needs cardiology evaluation -will continue to follow clinically at this time -further recs per Dr. Diaz, covering for Dr. Kory Neumann PGY1
--- NOTE | 2017-02-01 10:59 | CP.PCM.PN ---
Subjective - Date & Time of Evaluation Date of Evaluation: 02/01/17 Time of Evaluation: 10:58 - Subjective Subjective: Right hydro due to right iliac anuerism,pt recently found to be in atrial fib. No indication for gu intervention at this time signing off.Abdullahi Objective - Vital Signs/Intake and Output Vital Signs (last 24 hours): Temp Pulse Resp BP Pulse Ox 97.6 F 106 H 20 127/74 94 L 02/01/17 08:38 02/01/17 08:38 02/01/17 08:38 02/01/17 08:38 02/01/17 08:38 Intake and Output: 02/01/17 02/01/17 06:59 18:59 Intake Total 480 Output Total 200 Balance 280 - Medications Medications: Current Medications Acetylcysteine (Acetylcysteine 20%) 6 ml PO Q12H NGUYỄN Albuterol/Ipratropium (Duoneb 3 Mg/0.5 Mg (3 Ml) Ud) 3 ml INH RQ6 NGUYỄN Last Admin: 02/01/17 07:18 Dose: 3 ml Budesonide (Pulmicort Respules) 0.25 mg INH RQ12 NGUYỄN Last Admin: 02/01/17 07:18 Dose: 0.25 mg Furosemide (Lasix) 20 mg PO BID NGUYỄN Diltiazem HCl 125 mg/ Dextrose 125 mls @ 5 mls/hr IV .Q24H NGUYỄN; 5 MG/HR PRN Reason: Protocol Last Admin: 02/01/17 10:14 Dose: 5 mg/hr, 5 mls/hr Heparin Sodium/Sodium Chloride (Heparin 31018 Units/250ml 1/2 Normal Saline) 25 ,000 units in 250 mls @ 0 mls/hr IV .Q0M PRN; Protocol; Per Protocol PRN Reason: PROTOCOL Sodium Chloride (Sodium Chloride 0.9%) 1,000 mls @ 75 mls/hr IV .[id number] [facility] Insulin Human Regular (Novolin R) 0 unit SC ACHS NGUYỄN PRN Reason: Protocol Last Admin: 02/01/17 08:21 Dose: 2 unit Morphine Sulfate (Morphine) 1 mg IVP Q4H PRN PRN Reason: Pain, severe (8-10) Nebivolol (Bystolic) 10 mg PO DAILY [facility] Ryzgp-6-Zvkm Ethyl Esters (Lovaza) 1 gm PO DAILY NGUYỄN Last Admin: 02/01/17 10:00 Dose: 1 gm Ondansetron HCl (Zofran Inj) 4 mg IVP Q6 PRN PRN Reason: Nausea/Vomiting Pantoprazole Sodium (Protonix Ec Tab) 40 mg PO DAILY [facility] Last Admin: 02/01/17 10:00 Dose: 40 mg Pneumococcal Polyvalent Vaccine (Pneumovax 23 Vaccine) 0.5 ml IM .ONCE ONE Stop: 02/01/17 16:01 Prednisone (Prednisone Tab) 20 mg PO BID [facility] Last Admin: 02/01/17 10:00 Dose: 20 mg Prednisone (Prednisone Tab) 10 mg PO BID [facility] Last Admin: 02/01/17 10:00 Dose: 10 mg Rivaroxaban (Xarelto) 10 mg PO DAILY [facility] Last Admin: 02/01/17 10:00 Dose: 10 mg Tiotropium [place] (Spiriva) 18 mcg INH RQ24 [facility] Last Admin: 02/01/17 07:18 Dose: 18 mcg - Labs Labs: 02/01/17 07:22 02/01/17 07:22 PT 11.7 SECONDS (9.7-12.2) 01/31/17 07:49 INR 1.0 01/31/17 07:49 APTT 30 SECONDS (21-34) 02/01/17 07:22
[2017-02-01] MEDS ORDERED: Amiodarone 150mg/3 ml vial IV ONE (11:33)
[2017-02-01] MEDS ORDERED: Metoprolol 1 mg/ml Inj IVP ONE (11:33)
[2017-02-01] MEDS ORDERED: Sodium Phosphate 15 MMOLE in Sodium Chloride 0.9% 250 ML IVPB ONE (11:47)
[2017-02-01] MEDS ORDERED: Sodium Chloride 0.9% 250 ML IV ONE (13:00)
[2017-02-01] MEDS: Heparin25000 units/250ml 1/2NS 25,000 UNITS/250 ML BAG IV PRN (14:50)
--- NOTE | 2017-02-01 15:25 | CP.PCM.PN ---
Addendum entered and electronically signed by Ellen Salguero DO 02/01/17 16:07 : HR 116 sinus regular on monitor Talked to Anirudh hernandez, re: pt's HR and plan for cath tomorrow. Original Note: <Ellen Salguero - Last Filed: 02/01/17 15:22> Subjective - Date & Time of Evaluation Date of Evaluation: 02/01/17 Time of Evaluation: 15:22 - Subjective Subjective: Pgy-[address] Lafleur Pt s/p [employer] for Rapid RVR which turned wide-complex tachy while on cardizem gtt. QT prolonged at 522. NAD, AAOx3, VSS Objective - Vital Signs/Intake and Output Vital Signs (last 24 hours): Temp Pulse Resp BP Pulse Ox 97.6 F 106 H 20 127/74 94 L 02/01/17 08:38 02/01/17 08:38 02/01/17 08:38 02/01/17 08:38 02/01/17 08:38 Intake and Output: 02/01/17 02/01/17 06:59 18:59 Intake Total 480 Output Total 200 Balance 280 - Medications Medications: Current Medications Acetylcysteine (Acetylcysteine 20%) 6 ml PO Q12H NGUYỄN Albuterol/Ipratropium (Duoneb 3 Mg/0.5 Mg (3 Ml) Ud) 3 ml INH RQ6 NGUYỄN Last Admin: 02/01/17 07:18 Dose: 3 ml Budesonide (Pulmicort Respules) 0.25 mg INH RQ12 NGUY[facility]N Last Admin: 02/01/17 07:18 Dose: 0.25 mg Furosemide (Lasix) 20 mg PO BID [facility] Heparin Sodium/Sodium Chloride (Heparin 91129 Units/250ml 1/2 Normal Saline) 25 ,000 units in 250 mls @ 0 mls/hr IV .Q0M PRN; Protocol; Per Protocol PRN Reason: PROTOCOL Last Admin: 02/01/17 14:50 Dose: 12 u/kg/hr, 8.056 mls/hr Sodium Chloride (Sodium Chloride 0.9%) 1,000 mls @ 75 mls/hr IV .[id number] [facility] Sodium Phosphate 15 mmole/ (Sodium Chloride) 255 mls @ 50 mls/hr IVPB .Q5H6M ONE Stop: 02/01/17 16:52 Last Admin: 02/01/17 14:54 Dose: 50 mls/hr Diltiazem HCl 125 mg/ Dextrose 125 mls @ 7.5 mls/hr IV .[id number] NGUYỄN; 7.5 MG/HR PRN Reason: Protocol Insulin Human Regular (Novolin R) 0 unit SC ACHS NGUYỄN PRN Reason: Protocol Last Admin: 02/01/17 08:21 Dose: 2 unit Morphine Sulfate (Morphine) 1 mg IVP Q4H PRN PRN Reason: Pain, severe (8-10) Nebivolol (Bystolic) 10 mg PO DAILY [facility] Gjrpi-8-Alhs Ethyl Esters (Lovaza) 1 gm PO DAILY [facility] Last Admin: 02/01/17 10:00 Dose: 1 gm Ondansetron HCl (Zofran Inj) 4 mg IVP Q6 PRN PRN Reason: Nausea/Vomiting Pantoprazole Sodium (Protonix Ec Tab) 40 mg PO DAILY [facility] Last Admin: 02/01/17 10:00 Dose: 40 mg Pneumococcal Polyvalent Vaccine (Pneumovax 23 Vaccine) 0.5 ml IM .ONCE ONE Stop: 02/01/17 16:01 Prednisone (Prednisone Tab) 20 mg PO BID [facility] Last Admin: 02/01/17 10:00 Dose: 20 mg Prednisone (Prednisone Tab) 10 mg PO BID [facility] Last Admin: 02/01/17 10:00 Dose: 10 mg Rivaroxaban (Xarelto) 10 mg PO DAILY [facility] Last Admin: 02/01/17 10:00 Dose: 10 mg Tiotropium [place] (Spiriva) 18 mcg INH RQ24 [facility] Last Admin: 02/01/17 07:18 Dose: 18 mcg - Labs Labs: 02/01/17 07:22 02/01/17 07:22 PT 11.7 SECONDS (9.7-12.2) 01/31/17 07:49 INR 1.0 01/31/17 07:49 APTT 30 SECONDS (21-34) 02/01/17 07:22 - Constitutional Appears: No Acute Distress - Head Exam Head Exam: ATRAUMATIC, NORMOCEPHALIC - Eye Exam Eye Exam: EOMI, Normal appearance, PERRL - ENT Exam ENT Exam: Mucous Membranes Moist - Neck Exam Additional comments: no jvd - Respiratory Exam Respiratory Exam: Clear to Ausculation Bilateral, Rhonchi, Wheezes, NORMAL BREATHING PATTERN. absent: Rales - Cardiovascular Exam Cardiovascular Exam: Irregular Rhythm, +S1, +S2. absent: Murmur - GI/Abdominal Exam GI & Abdominal Exam: Soft, Normal Bowel Sounds. absent: Tenderness - Extremities Exam Extremities Exam: absent: Pedal Edema - Neurological Exam Neurological Exam: Alert, Normal Gait, Oriented x3 - Psychiatric Exam Psychiatric exam: Normal Affect, Normal Mood - Skin Skin Exam: Dry, Warm Assessment and Plan - Assessment and Plan (Free Text) Plan: 81 M with PMH of paroxysmal afib on Eliquis, DM2, COPD/ex-smoker of 50pack-yr, Hyperlipidemia, CKD 3, Abdominal Aortic Aneurysm with Stent, presents to the ED for complaint of SOB and COPD exacernation. CP was 2 months ago and pt could not articulate events leading to CP. SOB most likely from severe pulm HTN shown on echocardiogram. Pt has a Right hydronephrosis (01/30) due to right iliac anuerism. Pt is s/p [employer] for rapid a-fib that turned wide complex tachycardia while on cardizem gtt. VSS. Pt AAOx3, NAD. Cardiac cath tomorrow. Xarelto on hold, starting heparin gtt. Cath preparation, CKD 3 - Mucomyst started - Xarelto hold. start heparin gtt - hold nephrotoxic drug A-fib RVR, wide-complex tachycardia QT prolong - Cardizem gtt with heparin gtt - consulted Dr. Rice for elective catherter ablation - (+) wheezes, not a good candidate for stress test - CANDACE to follow Hx CAD - EKG: Sinus tachy 114. SVC. RBBB. Q waves in inferior leads. 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 Lafleur <Maxi Lafleur - Last Filed: 02/01/17 21:22> Objective - Vital Signs/Intake and Output Vital Signs (last 24 hours): Temp Pulse Resp BP Pulse Ox 97.7 F 69 17 113/71 96 02/01/17 16:00 02/01/17 18:40 02/01/17 18:40 02/01/17 18:21 02/01/17 18:40 Intake and Output: 02/01/17 02/02/17 18:59 06:59 Intake Total 870.0 88 Output Total 150 0 Balance 720.0 88 - Medications Medications: Current Medications Acetylcysteine (Acetylcysteine 20%) 6 ml PO Q12 NGUYỄN Stop: 02/03/17 22:01 Last Admin: 02/01/17 17:06 Dose: 6 ml Albuterol/Ipratropium (Duoneb 3 Mg/0.5 Mg (3 Ml) Ud) 3 ml INH RQ6 NGU[facility]N Last Admin: 02/01/17 19:15 Dose: 3 ml Amiodarone HCl (Cordarone) 200 mg PO DAILY NGU[facility]N Last Admin: 02/01/17 17:22 Dose: 200 mg Budesonide (Pulmicort Respules) 0.25 mg INH RQ12 [facility]N Last Admin: 02/01/17 19:14 Dose: Not Given Furosemide (Lasix) 20 mg PO BID [facility] Heparin Sodium/Sodium Chloride (Heparin 84098 Units/250ml 1/2 Normal Saline) 25 ,000 units in 250 mls @ 0 mls/hr IV .Q0M PRN; Protocol; Per Protocol PRN Reason: PROTOCOL Last Admin: 02/01/17 14:50 Dose: 12 u/kg/hr, 8.056 mls/hr Sodium Chloride (Sodium Chloride 0.9%) 1,000 mls @ 75 mls/hr IV .[id number] NGU[facility]ỄN Last Admin: 02/01/17 17:01 Dose: 75 mls/hr Diltiazem HCl 125 mg/ Dextrose 125 mls @ 7.5 mls/hr IV .[id number] NGU[facility]N; 7.5 MG/HR PRN Reason: Protocol Last Titration: 02/01/17 17:00 Dose: 5 mg/hr, 5 mls/hr Insulin Human Regular (Novolin R) 0 unit SC ACHS NGUYỄN PRN Reason: Protocol Last Admin: 02/01/17 17:20 Dose: 2 unit Morphine Sulfate (Morphine) 1 mg IVP Q4H PRN PRN Reason: Pain, severe (8-10) Nebivolol (Bystolic) 10 mg PO DAILY [facility] Acwet-6-Yohu Ethyl Esters (Lovaza) 1 gm PO DAILY [facility] Last Admin: 02/01/17 10:00 Dose: 1 gm Ondansetron HCl (Zofran Inj) 4 mg IVP Q6 PRN PRN Reason: Nausea/Vomiting Pantoprazole Sodium (Protonix Ec Tab) 40 mg PO DAILY [facility] Last Admin: 02/01/17 10:00 Dose: 40 mg Prednisone (Prednisone Tab) 20 mg PO BID [facility] Last Admin: 02/01/17 19:02 Dose: 20 mg Prednisone (Prednisone Tab) 10 mg PO BID [facility] Last Admin: 02/01/17 19:02 Dose: 10 mg Rivaroxaban (Xarelto) 10 mg PO DAILY [facility] Last Admin: 02/01/17 10:00 Dose: 10 mg Tiotropium [place] (Spiriva) 18 mcg INH RQ24 [facility] Last Admin: 02/01/17 07:18 Dose: 18 mcg - Labs Labs: 02/01/17 07:22 02/01/17 07:22 PT 11.7 SECONDS (9.7-12.2) 01/31/17 07:49 INR 1.0 01/31/17 07:49 APTT 30 SECONDS (21-34) 02/01/17 07:22 Assessment and Plan - Assessment and Plan (Free Text) Assessment: Patient seen and evaluated with the medical staff physician Agree with the management plan
--- NOTE | 2017-02-01 15:35 | CP.PCM.CON ---
<Kvng Zaragoza - Last Filed: 02/01/17 17:12> History of Present Illness - History of Present Illness History of Present Illness: EP-Cardiology Consult Note for Dr. Krystal Zaragoza PGY-1, Internal Medicine Consulted for: Tachycardia up to 170's, VTach vs AFlutter vs AFib with RVR, possible ablation HPI: This is an 81 yo M with PMH of paroxysmal afib on Eliquis, DM2, COPD, HLD, CKD 3, Scoliosis, BPH, and AAA s/p graft repair and stenting who initially presented to the ED for complaint of SOB and chest pain. SOB was described to the admitting team as progressively worsening and worse with exertion. On admission, patient was in NSR, but this AM, a rapid response was called due to sudden tachycardia up to 170's concerning for possible VTach vs AFib vs AFlutter and O2 desaturations to 80's (please see rapid response note by Dr. Laws). O2 sats were resolved with addition of NC O2, but initial EKG was concerning for AFlutter with 2:1 conduction. Pt states he was asymptomatic , resting comfortably, and without complaints at that time. He denies feeling any palpitations despite being told he had a rapid heart rate. Pt also denied experiencing any associated SOB, chest pain, Abd pain, N/V, fever, chills, headache, dizziness, LE edema, syncope. As per pt's primary procurement assistant (Dr. Lafleur), patient was started on a Cardizem drip and transferred to ICU. Prior to the transfer, the rapid rate recurred, another rapid response was called, and another EKG was obtained which was suspicious for possible VTach. Pt continued to deny symptoms, and he remained hemodynamically stable (SBP > 100 consistently ), awake/alert, and appropriately responsive to physical stimuli and verbal stimuli through both events. He admitted to sensation of palpitations during 2nd rapid response, but otherwise continued to be asymptomatic. He reports being hospitalized for a tachycardia in the past. He has never had a stress test but has had an echo "a long time ago," unknown results. Pt reports he can normally walk 1.5 blocks before becoming SOB and needing to rest. Pt spends most of his time at home and is mostly sedentary. PMH: As above PSH: Abd aortic aneurysm repair, B/L common illiac artery bypass, Hernia repair , Unspecified port SHx: former smoker (smoked 20 years ago, stopped 10 years ago); denies ETOH and illicit drug use FHx: CAD (brother, possibly mother and father), unspecified heart disease ( mother and father), Thyroid Ca (mother), EtOH abuse (brother) PMD: No family provider per charting, followed by Dr. Lomax Review of Systems - Constitutional Constitutional: absent: Chills, Fever, Weakness - EENT Eyes: absent: Change in Vision, Loss of Peripheral Vision, Loss of Vision Ears: absent: Dizziness - Cardiovascular Cardiovascular: Palpitations. absent: Chest Pain, Dyspnea, Irregular Heart Rhythm, Pain Radiating to Arm/Neck/Jaw, Lightheadedness, Rapid Heart Rate, Syncope - Respiratory Respiratory: absent: Cough, Dyspnea, Hemoptysis, Dyspnea on Exertion - Gastrointestinal Gastrointestinal: absent: Abdominal Pain, Nausea, Vomiting - Genitourinary Genitourinary: absent: Difficulty Urinating, Dysuria, Flank Pain, Hematuria - Musculoskeletal Musculoskeletal: absent: Numbness, Radiating Pain into Limb - Integumentary Integumentary: absent: Pruritus, Rash - Neurological Neurological: absent: Loss of Vision, Syncope, Vertigo, Other Visual Disturbances - Psychiatric Psychiatric: absent: Anxiety - Endocrine Endocrine: Palpitations. absent: Fatigue Past Patient History - Past Medical History & Family History Past Medical History?: No - Past Social History Smoking Status: Former Smoker - CARDIAC Hx Hypercholesterolemia: Yes Hx Hypertension: Yes - PULMONARY Hx Chronic Obstructive Pulmonary Disease (COPD): Yes - NEUROLOGICAL Hx Neurological Disorder: No - HEENT Hx Cataracts: Yes (5-YRS AGO) - RENAL Other/Comment: Pre renal - ENDOCRINE/METABOLIC Hx Diabetes Mellitus Type 2: Yes - HEMATOLOGICAL/ONCOLOGICAL Hx Anemia: Yes - INTEGUMENTARY Hx Dermatological Problems: No - MUSCULOSKELETAL/RHEUMATOLOGICAL Hx Arthritis: Yes - GASTROINTESTINAL Hx Gastrointestinal Disorders: No - GENITOURINARY/GYNECOLOGICAL Hx Prostate Problems: Yes (Enlarged Prostate) - PSYCHIATRIC Hx Substance Use: No - SURGICAL HISTORY Hx Surgeries: Yes Hx Abdominal Aortic Aneurysm Repair: Yes (1999) Hx Cataract Extraction: Yes - ANESTHESIA Hx Anesthesia: Yes Hx Anesthesia Reactions: No Meds Allergies/Adverse Reactions: Allergies Allergy/AdvReac Type Severity Reaction Status Date / Time No Known Allergies Allergy Verified 01/29/17 22:16 - Medications Medications: Current Medications Acetylcysteine (Acetylcysteine 20%) 6 ml PO Q12H [facility] Albuterol/Ipratropium (Duoneb 3 Mg/0.5 Mg (3 Ml) Ud) 3 ml INH RQ6 [facility] Last Admin: 02/01/17 07:18 Dose: 3 ml Budesonide (Pulmicort Respules) 0.25 mg INH RQ12 [facility] Last Admin: 02/01/17 07:18 Dose: 0.25 mg Furosemide (Lasix) 20 mg PO BID [facility] Heparin Sodium/Sodium Chloride (Heparin 68840 Units/250ml 1/2 Normal Saline) 25 ,000 units in 250 mls @ 0 mls/hr IV .Q0M PRN; Protocol; Per Protocol PRN Reason: PROTOCOL Last Admin: 02/01/17 14:50 Dose: 12 u/kg/hr, 8.056 mls/hr Sodium Chloride (Sodium Chloride 0.9%) 1,000 mls @ 75 mls/hr IV .[id number] [facility] Sodium Phosphate 15 mmole/ (Sodium Chloride) 255 mls @ 50 mls/hr IVPB .Q5H6M ONE Stop: 02/01/17 16:52 Last Admin: 02/01/17 14:54 Dose: 50 mls/hr Diltiazem HCl 125 mg/ Dextrose 125 mls @ 7.5 mls/hr IV .[id number] [facility]; 7.5 MG/HR PRN Reason: Protocol Insulin Human Regular (Novolin R) 0 unit SC ACHS [facility]N PRN Reason: Protocol Last Admin: 02/01/17 08:21 Dose: 2 unit Morphine Sulfate (Morphine) 1 mg IVP Q4H PRN PRN Reason: Pain, severe (8-10) Nebivolol (Bystolic) 10 mg PO DAILY [facility] Nsmee-0-Nnui Ethyl Esters (Lovaza) 1 gm PO DAILY [facility] Last Admin: 02/01/17 10:00 Dose: 1 gm Ondansetron HCl (Zofran Inj) 4 mg IVP Q6 PRN PRN Reason: Nausea/Vomiting Pantoprazole Sodium (Protonix Ec Tab) 40 mg PO DAILY [facility] Last Admin: 02/01/17 10:00 Dose: 40 mg Pneumococcal Polyvalent Vaccine (Pneumovax 23 Vaccine) 0.5 ml IM .ONCE ONE Stop: 02/01/17 16:01 Prednisone (Prednisone Tab) 20 mg PO BID [facility] Last Admin: 02/01/17 10:00 Dose: 20 mg Prednisone (Prednisone Tab) 10 mg PO BID [facility] Last Admin: 02/01/17 10:00 Dose: 10 mg Rivaroxaban (Xarelto) 10 mg PO DAILY [facility] Last Admin: 02/01/17 10:00 Dose: 10 mg Tiotropium Ayer (Spiriva) 18 mcg INH RQ24 [facility] Last Admin: 02/01/17 07:18 Dose: 18 mcg Physical Exam - Additional Findings Additional findings: General: NAD, resting comfortably in bed, non-toxic Head: NCAT, Normal inspection Eyes: EOMI, Normal appearance, No Conjunctival injection/scleral icterus or Irregular/Uneven Pupils ENT: Moist mucous membranes, Normal speech Neck: supple, appropriate ROM, no JVD Cardio: Tachycardic, Rapid rate, difficult to assess regularity of rhythm due to rapid rate, muffled heart sounds, no LE edema, intact radial pulses bilaterally Pulm: wet sounding cough on exam, diffuse wheezing and rhonchi in all ausculated currie; no tachypnea, no respiratory distress, no joe cyanosis GI: old healed midline surgical scar, + BS, soft, NTND, no masses palpated, not firm/rigid on palpation MSK: no edema, no tenderness, FROM in all extremities, no erythema, cool extremities R > L; Dorsal pulses +1 on left, not-palpated on right. Neuro: Awake and alert, oriented to self and location, answering questions appropriately and following commands appropriately Results - Vital Signs Recent Vital Signs: Last Vital Signs Temp 97.6 F 02/01/17 08:38 Pulse 106 H 02/01/17 08:38 Resp 20 02/01/17 08:38 BP 127/74 02/01/17 08:38 Pulse Ox 94 L 02/01/17 08:38 - Labs Result Diagrams: 02/01/17 07:22 02/01/17 07:22 Labs: Laboratory Results - last 24 hr 01/31/17 01/31/17 01/31/17 16:46 16:50 21:04 WBC RBC Hgb Hct MCV MCH MCHC RDW Plt Count MPV Neut % (Auto) Lymph % (Auto) Cavalier % (Auto) Eos % (Auto) Baso % (Auto) Neut # Lymph # Cavalier # Eos # Baso # Neutrophils % (Manual) Band Neutrophils % Lymphocytes % (Manual) Monocytes % (Manual) Platelet Estimate Polychromasia Hypochromasia (manual) Anisocytosis (manual) Ovalocytes APTT 34 Sodium Potassium Chloride Carbon Dioxide Anion Gap BUN Creatinine Est GFR ( Amer) Est GFR (Non-Af Amer) POC Glucose (mg/dL) 124 H 225 H Random Glucose Calcium Phosphorus Magnesium Total Bilirubin AST ALT Alkaline Phosphatase Total Creatine Kinase CK-MB (Mass) Troponin I, Quant Total Protein Albumin Globulin Albumin/Globulin Ratio 02/01/17 02/01/17 02/01/17 07:22 07:22 07:22 WBC 9.5 RBC 3.47 L Hgb 10.1 L Hct 30.8 L MCV 88.8 MCH 29.1 MCHC 32.7 L RDW 15.3 H Plt Count 113 L MPV 9.3 Neut % (Auto) 92.6 H Lymph % (Auto) 1.3 L Cavalier % (Auto) 6.1 Eos % (Auto) 0.0 Baso % (Auto) 0.0 Neut # 8.8 H Lymph # 0.1 L Cavalier # 0.6 Eos # 0.0 Baso # 0.0 Neutrophils % (Manual) 89 H Band Neutrophils % 6 H Lymphocytes % (Manual) 1 L Monocytes % (Manual) 4 Platelet Estimate Slightly decreased L Polychromasia Slight Hypochromasia (manual) Slight Anisocytosis (manual) Slight Ovalocytes Slight APTT 30 Sodium 138 Potassium 4.8 Chloride 100 Carbon Dioxide 31 H Anion Gap 12 BUN 30 H Creatinine 1.5 Est GFR ( Amer) 54 Est GFR (Non-Af Amer) 45 POC Glucose (mg/dL) Random Glucose 156 H Calcium 8.2 L Phosphorus 2.0 L Magnesium 2.1 Total Bilirubin 0.6 AST 49 ALT 39 Alkaline Phosphatase 84 Total Creatine Kinase CK-MB (Mass) Troponin I, Quant Total Protein 6.3 Albumin 3.5 Globulin 2.8 Albumin/Globulin Ratio 1.2 02/01/17 02/01/17 02/01/17 08:19 09:25 11:26 WBC RBC Hgb Hct MCV MCH MCHC RDW Plt Count MPV Neut % (Auto) Lymph % (Auto) Cavalier % (Auto) Eos % (Auto) Baso % (Auto) Neut # Lymph # [place]ier # Eos # Baso # Neutrophils % (Manual) Band Neutrophils % Lymphocytes % (Manual) Monocytes % (Manual) Platelet Estimate Polychromasia Hypochromasia (manual) Anisocytosis (manual) Ovalocytes APTT Sodium Potassium Chloride Carbon Dioxide Anion Gap BUN Creatinine Est GFR ( Amer) Est GFR (Non-Af Amer) POC Glucose (mg/dL) 163 H 234 H Random Glucose Calcium Phosphorus Magnesium Total Bilirubin AST ALT Alkaline Phosphatase Total Creatine Kinase 442 H CK-MB (Mass) 6.11 H Troponin I, Quant 0.0420 Total Protein Albumin Globulin Albumin/Globulin Ratio Assessment & Plan (1) Cardiac arrhythmia, unspecified Assessment and Plan: EKG 01/29/17: Sinus tachycardia with premature supraventricular complexes at 114 , QTc prolonged at 472, Right bundle branch block, Inferior infarct (age undetermined), Abnormal ECG EKG 02/01/17 Rapid Response #1: Atrial flutter with 2:1 AV conduction at 156, QTc prolonged at 538, Left axis deviation, Pulmonary disease pattern, Right bundle branch block, Abnormal ECG EKG 02/01/17 Rapid Response #2: Wide QRS tachycardia at 162, QRS prolonged at 122 , QTc prolonged at 522, Right bundle branch block, Inferior infarct (age undetermined), Abnormal ECG Echo 01/30/17: LVEF 51%, Mildly dilated LV, Moderately dilated LA, Mild-mod concentric LVH, RVSP 50-60 mmHg, severe pulm HTN, mild-mod TR Admission trops negative x3, trops since rapid responses negative x2 -Tachy arrhythmia, AFib with RVR vs AFlutter vs VTach -Started on Cardizem drip 5mg/hr per Primary Head Batcher (Dr. Lafleur), pending Cardiac cath tomorrow -Trops since RR negative, pending 1 more -EKGs during rapid concerning for AFlutter 2:1 conduction, possible Vtach -Hemodynamically stable, appropriate mentation, so no emergent electrical cardioversion indicated, will continue to monitor -Transferred to ICU, continue close monitoring, continue telemetry monitoring -Tachy rhythm may be 2/2 to being off home cardiac meds and possible dehydration ; will monitor on cardizem drip, Starting on 200mg PO Amiodarone daily (first dose now) -Continue additional medication management as per Primary cardio team, holding Oral AC in favor of heparin drip given pending cardiac cath Status: Acute (2) AAA (abdominal aortic aneurysm) Assessment and Plan: -Hx AAA s/p bypass graft with 2 iliac limbs, now 4.4cm on CTA; R iliac limb chronically occluded, 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 Rice - Date & Time Date: 02/01/17 Time: 09:00 <Dyana Rice - Last Filed: 02/02/17 09:29> Meds - Medications Medications: Current Medications Acetylcysteine (Acetylcysteine 20%) 6 ml PO Q12 [facility] Stop: 02/03/17 22:01 Last Admin: 02/01/17 21:22 Dose: 6 ml Albuterol/Ipratropium (Duoneb 3 Mg/0.5 Mg (3 Ml) Ud) 3 ml INH RQ6 [facility] Last Admin: 02/02/17 07:58 Dose: 3 ml Amiodarone HCl (Cordarone) 200 mg PO DAILY [facility] Last Admin: 02/01/17 17:22 Dose: 200 mg Budesonide (Pulmicort Respules) 0.25 mg INH RQ12 [facility] Last Admin: 02/02/17 07:58 Dose: 0.25 mg Furosemide (Lasix) 20 mg PO BID [facility] Heparin Sodium/Sodium Chloride (Heparin 22949 Units/250ml 1/2 Normal Saline) 25 ,000 units in 250 mls @ 0 mls/hr IV .Q0M PRN; Protocol; Per Protocol PRN Reason: PROTOCOL Last Titration: 02/02/17 08:07 Dose: 9 u/kg/hr, 6.042 mls/hr Sodium Chloride (Sodium Chloride 0.9%) 1,000 mls @ 75 mls/hr IV .[id number] [facility] Last Admin: 02/02/17 00:00 Dose: Not Given Diltiazem HCl 125 mg/ Dextrose 125 mls @ 7.5 mls/hr IV .[id number] [facility]; 7.5 MG/HR PRN Reason: Protocol Last Admin: 02/02/17 06:00 Dose: Not Given Sodium Phosphate 15 mmole/ (Sodium Chloride) 255 mls @ 50 mls/hr IVPB .Q5H6M [facility] Stop: 02/02/17 12:46 Insulin Human Regular (Novolin R) 0 unit SC ACHS [facility] PRN Reason: Protocol Last Admin: 02/02/17 07:43 Dose: Not Given Morphine Sulfate (Morphine) 1 mg IVP Q4H PRN PRN Reason: Pain, severe (8-10) Nebivolol (Bystolic) 10 mg PO DAILY [facility] [id number] Ethyl Esters (Lovaza) 1 gm PO DAILY [facility] Last Admin: 02/01/17 10:00 Dose: 1 gm Ondansetron HCl (Zofran Inj) 4 mg IVP Q6 PRN PRN Reason: Nausea/Vomiting Pantoprazole Sodium (Protonix Ec Tab) 40 mg PO DAILY [facility] Last Admin: 02/01/17 10:00 Dose: 40 mg Prednisone (Prednisone Tab) 20 mg PO BID [facility] Last Admin: 02/01/17 19:02 Dose: 20 mg Prednisone (Prednisone Tab) 10 mg PO BID [facility] Last Admin: 02/01/17 19:02 Dose: 10 mg Rivaroxaban (Xarelto) 10 mg PO DAILY [facility] Last Admin: 02/01/17 10:00 Dose: 10 mg Tiotropium Ayer (Spiriva) 18 mcg INH RQ24 [facility] Last Admin: 02/01/17 07:18 Dose: 18 mcg Results - Vital Signs Recent Vital Signs: Last Vital Signs Temp 97.6 F 02/02/17 00:00 Pulse 83 02/02/17 06:40 Resp 16 02/02/17 06:40 BP 133/80 02/02/17 06:21 Pulse Ox 91 L 02/02/17 06:30 - Labs Result Diagrams: 02/02/17 06:22 02/02/17 06:22 Labs: Laboratory Results - last 24 hr 02/01/17 02/01/17 02/01/17 09:25 11:26 15:13 WBC RBC Hgb Hct MCV MCH MCHC RDW Plt Count MPV Neut % (Auto) Lymph % (Auto) [place]alier % (Auto) Eos % (Auto) Baso % (Auto) Neut # Lymph # [place]ier # Eos # Baso # Neutrophils % (Manual) Band Neutrophils % Lymphocytes % (Manual) Reactive Lymphs % Monocytes % (Manual) Myelocytes % Platelet Estimate Large Platelets Hypochromasia (manual) Poikilocytosis (manual Basophilic Stippling Anisocytosis (manual) Isac Cells APTT Sodium Potassium Chloride Carbon Dioxide Anion Gap BUN Creatinine Est GFR ( Amer) Est GFR (Non-Af Amer) POC Glucose (mg/dL) 234 H Random Glucose Calcium Phosphorus Magnesium Total Bilirubin AST ALT Alkaline Phosphatase Total Creatine Kinase 442 H 282 H CK-MB (Mass) 6.11 H 3.10 Troponin I, Quant 0.0420 0.0320 Total Protein Albumin Globulin Albumin/Globulin Ratio 02/01/17 02/01/17 02/01/17 17:12 21:07 22:20 WBC RBC Hgb Hct MCV MCH MCHC RDW Plt Count MPV Neut % (Auto) Lymph % (Auto) [place]ier % (Auto) Eos % (Auto) Baso % (Auto) Neut # Lymph # [place] # Eos # Baso # Neutrophils % (Manual) Band Neutrophils % Lymphocytes % (Manual) Reactive Lymphs % Monocytes % (Manual) Myelocytes % Platelet Estimate Large Platelets Hypochromasia (manual) Poikilocytosis (manual Basophilic Stippling Anisocytosis (manual) Surprise Cells APTT 66 H D Sodium Potassium Chloride Carbon Dioxide Anion Gap BUN Creatinine Est GFR ( Amer) Est GFR (Non-Af Amer) POC Glucose (mg/dL) 187 H 126 H Random Glucose Calcium Phosphorus Magnesium Total Bilirubin AST ALT Alkaline Phosphatase Total Creatine Kinase CK-MB (Mass) Troponin I, Quant Total Protein Albumin Globulin Albumin/Globulin Ratio 02/01/17 02/02/17 02/02/17 22:20 05:58 06:22 WBC 10.4 RBC 3.49 L Hgb 9.9 L Hct 30.3 L MCV 86.9 MCH 28.4 MCHC 32.7 L RDW 15.5 H Plt Count 114 L MPV 10.0 Neut % (Auto) 91.7 H Lymph % (Auto) 2.0 L [place] % (Auto) 6.3 Eos % (Auto) 0.0 Baso % (Auto) 0.0 Neut # 9.6 H Lymph # 0.2 L [place]ier # 0.7 Eos # 0.0 Baso # 0.0 Neutrophils % (Manual) 74 Band Neutrophils % 9 H Lymphocytes % (Manual) 3 L Reactive Lymphs % 1 H Monocytes % (Manual) 10 Myelocytes % 3 H Platelet Estimate Slightly decreased L Large Platelets Present Hypochromasia (manual) Slight Poikilocytosis (manual Slight Basophilic Stippling Slight Anisocytosis (manual) Slight Isac Cells Slight APTT Sodium Potassium Chloride Carbon Dioxide Anion Gap BUN Creatinine Est GFR ( Amer) Est GFR (Non-Af Amer) POC Glucose (mg/dL) 225 H Random Glucose Calcium Phosphorus Magnesium Total Bilirubin AST ALT Alkaline Phosphatase Total Creatine Kinase 474 H CK-MB (Mass) 5.24 H Troponin I, Quant 0.0440 Total Protein Albumin Globulin Albumin/Globulin Ratio 02/02/17 02/02/17 02/02/17 06:22 06:22 07:31 WBC RBC Hgb Hct MCV MCH MCHC RDW Plt Count MPV Neut % (Auto) Lymph % (Auto) [place]ier % (Auto) Eos % (Auto) Baso % (Auto) Neut # Lymph # [place] # Eos # Baso # Neutrophils % (Manual) Band Neutrophils % Lymphocytes % (Manual) Reactive Lymphs % Monocytes % (Manual) Myelocytes % Platelet Estimate Large Platelets Hypochromasia (manual) Poikilocytosis (manual Basophilic Stippling Anisocytosis (manual) Surprise Cells APTT 134 H* D Sodium 136 Potassium 4.0 Chloride 98 Carbon Dioxide 28 Anion Gap 14 BUN 31 H Creatinine 1.4 Est GFR ( Amer) 59 Est GFR (Non-Af Amer) 49 POC Glucose (mg/dL) 178 H Random Glucose 170 H Calcium 7.6 L Phosphorus 2.2 L Magnesium 1.5 L Total Bilirubin 0.7 AST 41 ALT 46 Alkaline Phosphatase 83 Total Creatine Kinase CK-MB (Mass) Troponin I, Quant Total Protein 6.0 L Albumin 3.4 L Globulin 2.6 Albumin/Globulin Ratio 1.3 Attending/Attestation - Attestation I have personally seen and examined this patient.: Yes I have fully participated in the care of the patient.: Yes I have reviewed all pertinent clinical information: Yes Notes (Text): 02/02/17 09:28 Pt rate contron and anticoagulate consider rfa
[2017-02-01] MEDS ORDERED: Pneumococcal 23-Valent Vaccine IM ONE (16:00)
[2017-02-01] MEDS: Sodium Chloride 0.9% 1,000 ML IV SCH (17:01)
[2017-02-01] MEDS: Acetylcysteine 20% Inhal Soln (4ml) PO SCH ×2 (17:06→21:22)
--- NOTE | 2017-02-01 17:08 | CP.PCM.CON ---
<Aristeo Tom - Last Filed: 02/01/17 17:00> History of Present Illness - History of Present Illness History of Present Illness: ICU Consult note This is an 81 M with PMH of Dm, COPD, Hyperlipidemia, Abdominal Aortic Aneurysm with Stent, history of paroxysmal afib, presents to [facility] ED for complaint of SOB and chest pain. Pt was admitted and being treated for a COPD exacerbation. ICU was consulted after a MECHANICAL ENGINEERING DRAFTSPERSON was called for tachycardia with HR in the 160's. BP was maintained and pt was asymptomatic throughout the MECHANICAL ENGINEERING DRAFTSPERSON. An EKG was obtained. Cardizem drip had already been started but pt was non- responsive with HR maintained in the 160's at times. Pt was then transferred to ICU for further management/observation. Pt never reported chest pain, sob, nausea, vomiting, headaches or dizziness. PMH: As above PSH: Abd aortic aneurysm repair, B/L common illiac artery bypass, Hernia repair , Unspecified port SHx: former smoker (smoked 20 years ago, stopped 10 years ago); denies ETOH and illicit drug use FHx: CAD (brother, possibly mother and father), unspecified heart disease ( mother and father), Thyroid Ca (mother), EtOH abuse (brother) PMD: No family provider per charting, followed by Dr. Lomax Review of Systems - Review of Systems All systems: reviewed and no additional remarkable complaints except (where noted in HPI) Past Patient History - Past Medical History & Family History Past Medical History?: No - Past Social History Smoking Status: Former Smoker - CARDIAC Hx Hypercholesterolemia: Yes Hx Hypertension: Yes - PULMONARY Hx Chronic Obstructive Pulmonary Disease (COPD): Yes - NEUROLOGICAL Hx Neurological Disorder: No - HEENT Hx Cataracts: Yes (5-YRS AGO) - RENAL Other/Comment: Pre renal - ENDOCRINE/METABOLIC Hx Diabetes Mellitus Type 2: Yes - HEMATOLOGICAL/ONCOLOGICAL Hx Anemia: Yes - INTEGUMENTARY Hx Dermatological Problems: No - MUSCULOSKELETAL/RHEUMATOLOGICAL Hx Arthritis: Yes - GASTROINTESTINAL Hx Gastrointestinal Disorders: No - GENITOURINARY/GYNECOLOGICAL Hx Prostate Problems: Yes (Enlarged Prostate) - PSYCHIATRIC Hx Substance Use: No - SURGICAL HISTORY Hx Surgeries: Yes Hx Abdominal Aortic Aneurysm Repair: Yes (1999) Hx Cataract Extraction: Yes - ANESTHESIA Hx Anesthesia: Yes Hx Anesthesia Reactions: No Meds Allergies/Adverse Reactions: Allergies Allergy/AdvReac Type Severity Reaction Status Date / Time No Known Allergies Allergy Verified 01/29/17 22:16 - Medications Medications: Current Medications Acetylcysteine (Acetylcysteine 20%) 6 ml PO Q12 [facility] Stop: 02/03/17 22:01 Albuterol/Ipratropium (Duoneb 3 Mg/0.5 Mg (3 Ml) Ud) 3 ml INH RQ6 NGUYỄN Last Admin: 02/01/17 07:18 Dose: 3 ml Budesonide (Pulmicort Respules) 0.25 mg INH RQ12 [facility] Last Admin: 02/01/17 07:18 Dose: 0.25 mg Furosemide (Lasix) 20 mg PO BID [facility] Heparin Sodium/Sodium Chloride (Heparin 82809 Units/250ml 1/2 Normal Saline) 25 ,000 units in 250 mls @ 0 mls/hr IV .Q0M PRN; Protocol; Per Protocol PRN Reason: PROTOCOL Last Admin: 02/01/17 14:50 Dose: 12 u/kg/hr, 8.056 mls/hr Sodium Chloride (Sodium Chloride 0.9%) 1,000 mls @ 75 mls/hr IV .[id number] NGUYỄN Diltiazem HCl 125 mg/ Dextrose 125 mls @ 7.5 mls/hr IV .[id number] NGUYỄN; 7.5 MG/HR PRN Reason: Protocol Last Admin: 02/01/17 11:00 Dose: 7.5 mg/hr, 7.5 mls/hr Insulin Human Regular (Novolin R) 0 unit SC ACHS NGUYỄN PRN Reason: Protocol Last Admin: 02/01/17 08:21 Dose: 2 unit Morphine Sulfate (Morphine) 1 mg IVP Q4H PRN PRN Reason: Pain, severe (8-10) Nebivolol (Bystolic) 10 mg PO DAILY [facility] [id number] Ethyl Esters (Lovaza) 1 gm PO DAILY [facility] Last Admin: 02/01/17 10:00 Dose: 1 gm Ondansetron HCl (Zofran Inj) 4 mg IVP Q6 PRN PRN Reason: Nausea/Vomiting Pantoprazole Sodium (Protonix Ec Tab) 40 mg PO DAILY [facility] Last Admin: 02/01/17 10:00 Dose: 40 mg Prednisone (Prednisone Tab) 20 mg PO BID [facility] Last Admin: 02/01/17 10:00 Dose: 20 mg Prednisone (Prednisone Tab) 10 mg PO BID [facility] Last Admin: 02/01/17 10:00 Dose: 10 mg Rivaroxaban (Xarelto) 10 mg PO DAILY [facility] Last Admin: 02/01/17 10:00 Dose: 10 mg Tiotropium [place] (Spiriva) 18 mcg INH RQ24 [facility] Last Admin: 02/01/17 07:18 Dose: 18 mcg Physical Exam - Constitutional Appears: Well, Non-toxic, No Acute Distress - Head Exam Head Exam: ATRAUMATIC, NORMOCEPHALIC - Respiratory Exam Respiratory Exam: Rhonchi (mild/diffuse), NORMAL BREATHING PATTERN - Cardiovascular Exam Cardiovascular Exam: Tachycardia, Irregular Rhythm, +S1, +S2 - GI/Abdominal Exam GI & Abdominal Exam: Normal Bowel Sounds, Soft - Neurological Exam Neurological exam: Alert, Oriented x3 - Skin Skin Exam: Dry, Warm Results - Vital Signs Recent Vital Signs: Last Vital Signs Temp 97.9 F 02/01/17 12:15 Pulse 89 02/01/17 14:00 Resp 19 02/01/17 14:00 BP 107/86 02/01/17 14:00 Pulse Ox 96 02/01/17 14:00 - Labs Result Diagrams: 02/01/17 07:22 02/01/17 07:22 Labs: Laboratory Results - last 24 hr 01/31/17 01/31/17 01/31/17 16:46 16:50 21:04 WBC RBC Hgb Hct MCV MCH MCHC RDW Plt Count MPV Neut % (Auto) Lymph % (Auto) [place] % (Auto) Eos % (Auto) Baso % (Auto) Neut # Lymph # [place] # Eos # Baso # Neutrophils % (Manual) Band Neutrophils % Lymphocytes % (Manual) Monocytes % (Manual) Platelet Estimate Polychromasia Hypochromasia (manual) Anisocytosis (manual) Ovalocytes APTT 34 Sodium Potassium Chloride Carbon Dioxide Anion Gap BUN Creatinine Est GFR ( Amer) Est GFR (Non-Af Amer) POC Glucose (mg/dL) 124 H 225 H Random Glucose Calcium Phosphorus Magnesium Total Bilirubin AST ALT Alkaline Phosphatase Total Creatine Kinase CK-MB (Mass) Troponin I, Quant Total Protein Albumin Globulin Albumin/Globulin Ratio 02/01/17 02/01/17 02/01/17 07:22 07:22 07:22 WBC 9.5 RBC 3.47 L Hgb 10.1 L Hct 30.8 L MCV 88.8 MCH 29.1 MCHC 32.7 L RDW 15.3 H Plt Count 113 L MPV 9.3 Neut % (Auto) 92.6 H Lymph % (Auto) 1.3 L [place] % (Auto) 6.1 Eos % (Auto) 0.0 Baso % (Auto) 0.0 Neut # 8.8 H Lymph # 0.1 L [place] # 0.6 Eos # 0.0 Baso # 0.0 Neutrophils % (Manual) 89 H Band Neutrophils % 6 H Lymphocytes % (Manual) 1 L Monocytes % (Manual) 4 Platelet Estimate Slightly decreased L Polychromasia Slight Hypochromasia (manual) Slight Anisocytosis (manual) Slight Ovalocytes Slight APTT 30 Sodium 138 Potassium 4.8 Chloride 100 Carbon Dioxide 31 H Anion Gap 12 BUN 30 H Creatinine 1.5 Est GFR ( Amer) 54 Est GFR (Non-Af Amer) 45 POC Glucose (mg/dL) Random Glucose 156 H Calcium 8.2 L Phosphorus 2.0 L Magnesium 2.1 Total Bilirubin 0.6 AST 49 ALT 39 Alkaline Phosphatase 84 Total Creatine Kinase CK-MB (Mass) Troponin I, Quant Total Protein 6.3 Albumin 3.5 Globulin 2.8 Albumin/Globulin Ratio 1.2 02/01/17 02/01/17 02/01/17 08:19 09:25 11:26 WBC RBC Hgb Hct MCV MCH MCHC RDW Plt Count MPV Neut % (Auto) Lymph % (Auto) [place] % (Auto) Eos % (Auto) Baso % (Auto) Neut # Lymph # [place] # Eos # Baso # Neutrophils % (Manual) Band Neutrophils % Lymphocytes % (Manual) Monocytes % (Manual) Platelet Estimate Polychromasia Hypochromasia (manual) Anisocytosis (manual) Ovalocytes APTT Sodium Potassium Chloride Carbon Dioxide Anion Gap BUN Creatinine Est GFR ( Amer) Est GFR (Non-Af Amer) POC Glucose (mg/dL) 163 H 234 H Random Glucose Calcium Phosphorus Magnesium Total Bilirubin AST ALT Alkaline Phosphatase Total Creatine Kinase 442 H CK-MB (Mass) 6.11 H Troponin I, Quant 0.0420 Total Protein Albumin Globulin Albumin/Globulin Ratio 02/01/17 15:13 WBC RBC Hgb Hct MCV MCH MCHC RDW Plt Count MPV Neut % (Auto) Lymph % (Auto) [place] % (Auto) Eos % (Auto) Baso % (Auto) Neut # Lymph # [place] # Eos # Baso # Neutrophils % (Manual) Band Neutrophils % Lymphocytes % (Manual) Monocytes % (Manual) Platelet Estimate Polychromasia Hypochromasia (manual) Anisocytosis (manual) Ovalocytes APTT Sodium Potassium Chloride Carbon Dioxide Anion Gap BUN Creatinine Est GFR ( Amer) Est GFR (Non-Af Amer) POC Glucose (mg/dL) Random Glucose Calcium Phosphorus Magnesium Total Bilirubin AST ALT Alkaline Phosphatase Total Creatine Kinase 282 H CK-MB (Mass) 3.10 Troponin I, Quant 0.0320 Total Protein Albumin Globulin Albumin/Globulin Ratio Assessment & Plan - Assessment and Plan (Free Text) Assessment: This is an 81 yo M with extensive past medical history transferred to ICU for a tachy arrythmia requiring cardizem drip. Pt hemodynamically stable and asymptomatic Plan: Neuro: AAOx3 Cont to monitor Cardiovascular: Pt no longer tachycardic. Pt NSR in the 70's on Cardizem drip 7.5mg. Adjust as necessary Amiodorone PO per cardio Cath for tomorrow per Cardio Trop negative Management per cardio Pulmonary: Saturating well, no respiratory distress Continue current medication regimen Monitor Gastrointestinal: No acute issues Heart healthy diet Hematology: Hemoglobin stable, no acute issues Endocrine: sliding scale coverage Renal: Cont IVF Acetylcysteine for contrast nephropathy protection for cath tomorrow Infectious Disease: Afebrile, no leukocytosis Holding abx per pulm for now GI Prophylaxis: Protonix DVT Prophylaxis: on hep drip <Duc Chavez - Last Filed: 02/01/17 18:17> Meds - Medications Medications: Current Medications Acetylcysteine (Acetylcysteine 20%) 6 ml PO Q12 [facility] Stop: 02/03/17 22:01 Last Admin: 02/01/17 17:06 Dose: 6 ml Albuterol/Ipratropium (Duoneb 3 Mg/0.5 Mg (3 Ml) Ud) 3 ml INH RQ6 [facility] Last Admin: 02/01/17 07:18 Dose: 3 ml Amiodarone HCl (Cordarone) 200 mg PO DAILY [facility] Last Admin: 02/01/17 17:22 Dose: 200 mg Budesonide (Pulmicort Respules) 0.25 mg INH RQ12 [facility] Last Admin: 02/01/17 07:18 Dose: 0.25 mg Furosemide (Lasix) 20 mg PO BID [facility] Heparin Sodium/Sodium Chloride (Heparin 61778 Units/250ml 1/2 Normal Saline) 25 ,000 units in 250 mls @ 0 mls/hr IV .Q0M PRN; Protocol; Per Protocol PRN Reason: PROTOCOL Last Admin: 02/01/17 14:50 Dose: 12 u/kg/hr, 8.056 mls/hr Sodium Chloride (Sodium Chloride 0.9%) 1,000 mls @ 75 mls/hr IV .[id number] [facility] Last Admin: 02/01/17 17:01 Dose: 75 mls/hr Diltiazem HCl 125 mg/ Dextrose 125 mls @ 7.5 mls/hr IV .[id number] NGUYỄN; 7.5 MG/HR PRN Reason: Protocol Last Titration: 02/01/17 17:00 Dose: 5 mg/hr, 5 mls/hr Insulin Human Regular (Novolin R) 0 unit SC ACHS NGUYỄN PRN Reason: Protocol Last Admin: 02/01/17 17:20 Dose: 2 unit Morphine Sulfate (Morphine) 1 mg IVP Q4H PRN PRN Reason: Pain, severe (8-10) Nebivolol (Bystolic) 10 mg PO DAILY [facility] [id number] Ethyl Esters (Lovaza) 1 gm PO DAILY [facility] Last Admin: 02/01/17 10:00 Dose: 1 gm Ondansetron HCl (Zofran Inj) 4 mg IVP Q6 PRN PRN Reason: Nausea/Vomiting Pantoprazole Sodium (Protonix Ec Tab) 40 mg PO DAILY [facility] Last Admin: 02/01/17 10:00 Dose: 40 mg Prednisone (Prednisone Tab) 20 mg PO BID [facility] Last Admin: 02/01/17 10:00 Dose: 20 mg Prednisone (Prednisone Tab) 10 mg PO BID [facility] Last Admin: 02/01/17 10:00 Dose: 10 mg Rivaroxaban (Xarelto) 10 mg PO DAILY [facility] Last Admin: 02/01/17 10:00 Dose: 10 mg Tiotropium [place] (Spiriva) 18 mcg INH RQ24 [facility] Last Admin: 02/01/17 07:18 Dose: 18 mcg Results - Vital Signs Recent Vital Signs: Last Vital Signs Temp 97.7 F 02/01/17 16:00 Pulse 80 02/01/17 17:40 Resp 20 02/01/17 17:40 BP 128/80 02/01/17 17:21 Pulse Ox 96 02/01/17 17:21 - Labs Result Diagrams: 02/01/17 07:22 02/01/17 07:22 Labs: Laboratory Results - last 24 hr 01/31/17 02/01/17 02/01/17 21:04 07:22 07:22 WBC 9.5 RBC 3.47 L Hgb 10.1 L Hct 30.8 L MCV 88.8 MCH 29.1 MCHC 32.7 L RDW 15.3 H Plt Count 113 L MPV 9.3 Neut % (Auto) 92.6 H Lymph % (Auto) 1.3 L [place] % (Auto) 6.1 Eos % (Auto) 0.0 Baso % (Auto) 0.0 Neut # 8.8 H Lymph # 0.1 L [place] # 0.6 Eos # 0.0 Baso # 0.0 Neutrophils % (Manual) 89 H Band Neutrophils % 6 H Lymphocytes % (Manual) 1 L Monocytes % (Manual) 4 Platelet Estimate Slightly decreased L Polychromasia Slight Hypochromasia (manual) Slight Anisocytosis (manual) Slight Ovalocytes Slight APTT Sodium 138 Potassium 4.8 Chloride 100 Carbon Dioxide 31 H Anion Gap 12 BUN 30 H Creatinine 1.5 Est GFR ( Amer) 54 Est GFR (Non-Af Amer) 45 POC Glucose (mg/dL) 225 H Random Glucose 156 H Calcium 8.2 L Phosphorus 2.0 L Magnesium 2.1 Total Bilirubin 0.6 AST 49 ALT 39 Alkaline Phosphatase 84 Total Creatine Kinase CK-MB (Mass) Troponin I, Quant Total Protein 6.3 Albumin 3.5 Globulin 2.8 Albumin/Globulin Ratio 1.2 02/01/17 02/01/17 02/01/17 07:22 08:19 09:25 WBC RBC Hgb Hct MCV MCH MCHC RDW Plt Count MPV Neut % (Auto) Lymph % (Auto) [place] % (Auto) Eos % (Auto) Baso % (Auto) Neut # Lymph # [place] # Eos # Baso # Neutrophils % (Manual) Band Neutrophils % Lymphocytes % (Manual) Monocytes % (Manual) Platelet Estimate Polychromasia Hypochromasia (manual) Anisocytosis (manual) Ovalocytes APTT 30 Sodium Potassium Chloride Carbon Dioxide Anion Gap BUN Creatinine Est GFR ( Amer) Est GFR (Non-Af Amer) POC Glucose (mg/dL) 163 H Random Glucose Calcium Phosphorus Magnesium Total Bilirubin AST ALT Alkaline Phosphatase Total Creatine Kinase 442 H CK-MB (Mass) 6.11 H Troponin I, Quant 0.0420 Total Protein Albumin Globulin Albumin/Globulin Ratio 02/01/17 02/01/17 02/01/17 11:26 15:13 17:12 WBC RBC Hgb Hct MCV MCH MCHC RDW Plt Count MPV Neut % (Auto) Lymph % (Auto) [place] % (Auto) Eos % (Auto) Baso % (Auto) Neut # Lymph # [place] # Eos # Baso # Neutrophils % (Manual) Band Neutrophils % Lymphocytes % (Manual) Monocytes % (Manual) Platelet Estimate Polychromasia Hypochromasia (manual) Anisocytosis (manual) Ovalocytes APTT Sodium Potassium Chloride Carbon Dioxide Anion Gap BUN Creatinine Est GFR ( Amer) Est GFR (Non-Af Amer) POC Glucose (mg/dL) 234 H 187 H Random Glucose Calcium Phosphorus Magnesium Total Bilirubin AST ALT Alkaline Phosphatase Total Creatine Kinase 282 H CK-MB (Mass) 3.10 Troponin I, Quant 0.0320 Total Protein Albumin Globulin Albumin/Globulin Ratio Attending/Attestation - Attestation I have personally seen and examined this patient.: Yes I have fully participated in the care of the patient.: Yes I have reviewed all pertinent clinical information: Yes Notes (Text): 02/01/17 18:16 Today: January The Patient was seen and examined at the bedside, Medical records reviewed, all clinical/lab/hemodynamic/radiographic data were reviewed and management issues were discussed and formulated, Events reviewed Pain issues, skin care, head of the bed elevation, glycemic control were addressed. Agree with above treatment plans as transcribed in Dr. Negro barragan
--- NOTE | 2017-02-01 17:18 | CP.PCM.PN ---
Subjective - Date & Time of Evaluation Date of Evaluation: 02/01/17 Time of Evaluation: 11:30 - Subjective Subjective: patient seen and examined. Patient went into A. fib flutter and started on Cardizem Patient being transferred to intensive care unit No respiratory distress noted Objective - Vital Signs/Intake and Output Vital Signs (last 24 hours): Temp Pulse Resp BP Pulse Ox 97.9 F 89 19 107/86 96 02/01/17 12:15 02/01/17 14:00 02/01/17 14:00 02/01/17 14:00 02/01/17 14:00 Intake and Output: 02/01/17 02/01/17 06:59 18:59 Intake Total 480 642.5 Output Total 200 150 Balance 280 492.5 - Medications Medications: Current Medications Acetylcysteine (Acetylcysteine 20%) 6 ml PO Q12 NGUYỄN Stop: 02/03/17 22:01 Last Admin: 02/01/17 17:06 Dose: 6 ml Albuterol/Ipratropium (Duoneb 3 Mg/0.5 Mg (3 Ml) Ud) 3 ml INH RQ6 [facility] Last Admin: 02/01/17 07:18 Dose: 3 ml Amiodarone HCl (Cordarone) 200 mg PO DAILY NGUYỄN Budesonide (Pulmicort Respules) 0.25 mg INH RQ12 NGUYỄN Last Admin: 02/01/17 07:18 Dose: 0.25 mg Furosemide (Lasix) 20 mg PO BID NGUYỄN Heparin Sodium/Sodium Chloride (Heparin 44062 Units/250ml 1/2 Normal Saline) 25 ,000 units in 250 mls @ 0 mls/hr IV .Q0M PRN; Protocol; Per Protocol PRN Reason: PROTOCOL Last Admin: 02/01/17 14:50 Dose: 12 u/kg/hr, 8.056 mls/hr Sodium Chloride (Sodium Chloride 0.9%) 1,000 mls @ 75 mls/hr IV .[id number] NGUYỄN Last Admin: 02/01/17 17:01 Dose: 75 mls/hr Diltiazem HCl 125 mg/ Dextrose 125 mls @ 7.5 mls/hr IV .[id number] NGUYỄN; 7.5 MG/HR PRN Reason: Protocol Last Titration: 02/01/17 17:00 Dose: 5 mg/hr, 5 mls/hr Insulin Human Regular (Novolin R) 0 unit SC ACHS NGUYỄN PRN Reason: Protocol Last Admin: 02/01/17 11:30 Dose: Not Given Morphine Sulfate (Morphine) 1 mg IVP Q4H PRN PRN Reason: Pain, severe (8-10) Nebivolol (Bystolic) 10 mg PO DAILY [facility] [id number] Ethyl Esters (Lovaza) 1 gm PO DAILY [facility] Last Admin: 02/01/17 10:00 Dose: 1 gm Ondansetron HCl (Zofran Inj) 4 mg IVP Q6 PRN PRN Reason: Nausea/Vomiting Pantoprazole Sodium (Protonix Ec Tab) 40 mg PO DAILY [facility] Last Admin: 02/01/17 10:00 Dose: 40 mg Prednisone (Prednisone Tab) 20 mg PO BID [facility] Last Admin: 02/01/17 10:00 Dose: 20 mg Prednisone (Prednisone Tab) 10 mg PO BID [facility] Last Admin: 02/01/17 10:00 Dose: 10 mg Rivaroxaban (Xarelto) 10 mg PO DAILY [facility] Last Admin: 02/01/17 10:00 Dose: 10 mg Tiotropium [place] (Spiriva) 18 mcg INH RQ24 [facility] Last Admin: 02/01/17 07:18 Dose: 18 mcg - Labs Labs: 02/01/17 07:22 02/01/17 07:22 PT 11.7 SECONDS (9.7-12.2) 01/31/17 07:49 INR 1.0 01/31/17 07:49 APTT 30 SECONDS (21-34) 02/01/17 07:22 - Eye Exam Eye Exam: EOMI - ENT Exam ENT Exam: Normal Exam - Neck Exam Neck Exam: Normal Inspection - Respiratory Exam Respiratory Exam: Decreased Breath Sounds - Cardiovascular Exam Cardiovascular Exam: Irregular Rhythm - GI/Abdominal Exam GI & Abdominal Exam: Soft, Normal Bowel Sounds - Extremities Exam Extremities Exam: Normal Inspection Assessment and Plan (1) COPD with exacerbation Assessment & Plan: continue nebulizer treatment, IV steroids Started on Cardizem drip for fib/flutter Status: Acute
--- NOTE | 2017-02-01 18:55 | PN ---
DATE: 02/01/2017 HISTORY OF PRESENT ILLNESS: An 81-year-old male with past medical history of diabetes, COPD, hyperl ipidemia, abdominal aortic aneurysm status post repair with bilateral iliac artery grafts, paroxysmal AFib, admitted with COPD exacerbation. Nephrology consulted for acute renal failure. The patient had rapid response today due to AFib with rapid ventricular rate, transferred subsequentl y to ICU and put on Cardizem drip. The patient seen in ICU, resting comfortably. Reports his breath ing has overall improved. Tolerating diet. PHYSICAL EXAMINATION: VITAL SIGNS: This evening, blood pressure 128/80, heart rate 66, respiration 10 and O2 sat 92%. GENERAL: No distress, lying comfortably, able to speak coherently in full sentences. HEENT: Moist mucous membranes. Nonicteric. RESPIRATORY: Diffuse bilateral expiratory wheezes with prolonged expiratory phase. No respiratory di stress. CARDIOVASCULAR: S1, S2 normal. Regular rate and rhythm. No murmurs, no gallops, no rubs. GASTROINTESTINAL: Abdomen soft, nontender, nondistended. GENITOURINARY: No bladder distention. EXTREMITIES: Minimal lower leg edema. SKIN: Warm, no cyanosis. PSYCHIATRIC: Normal mood, normal affect. LABORATORY DATA: Today, WBC 9.5, hemoglobin 10.1, hematocrit , platelets 113. Chemistry panel: Sodium 138, potassium 4.8, chloride 100, bicarbonate 31, BUN 30, creatinine 1.5, glucose 156, calci um 8.2, phosphorus 2.0. Albumin 3.5. 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 ASSESSMENT: 1. Acute renal failure, acute kidney injury on chronic kidney disease IIIA. Appears to be prerenal in etiology with renal function improving after holding diuretics. Mild increase in serum creatinine after receiving dye study last night, patient being planned for cardiac catheterization tomorrow as part of preop evaluation and due to suspicion for underlying coronary artery disease as cause of macario ent's atrial fibrillation, recommend to keep patient IV fluids with normal saline at 75 mL per hour. Continue acetylcysteine 1200 mg q. 12 hours to prevent contrast nephropathy. Flooring Sales Manager will att empt to use minimal amount of dye for the procedure. Should monitor serum creatinine tomorrow and if still increasing, then may need to postpone catheterization. 2. 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 As me ntioned above, the patient should be kept volume replete as his chronic kidney disease status puts hi m at risk for contrast-induced nephropathy. 3. Hypertension. The patient had been off of all meds and just today restarted on beta blockers. B lood pressure has been controlled, today started on Cardizem drip for atrial fibrillation with rapid ventricular response. Recommend to avoid tight blood pressure control for now to avoid precipitating further renal insult from decreased renal perfusion. 4. Atrophic right kidney. The patient was supposed to undergo renal Lasix scan, but apparently refu sed the study, unclear why. Purpose of study was to see if there was any function left in the right atrophic kidney, in which circumstance urology intervention may be worthwhile. 5. Pneumonia. Dante Duran MD cc: [id number] TT: 02/01/2017 18:54:44 Confirmation # [id number] Dictation # [id number] ln
[2017-02-02] MEDS: Sodium Chloride 0.9% 1,000 ML IV SCH
[2017-02-02] MEDS: Albuterol-Ipratrop 3 mg / 0.5 (3 ml) UD INH SCH ×4 (01:09→19:37)
[2017-02-02 06:29] LABS: HEMATOCRIT 30.3 % (35.0-51.0); LYMPH # 0.2 K/uL (1.0-4.3); MEAN CELL VOLUME 86.9 fL (80.0-94.0); MEAN CORPUSCULAR HEMOGLOBIN 28.4 pg (27.0-31.0); MEAN CORPUSCULAR HGB CONC 32.7 g/dL (33.0-37.0); MONO # 0.7 K/uL (0.0-0.8); MONO % 6.3 % (0.0-10.0); NRBC % 0.1 % (0.0-2.0); PLATELET COUNT 114 K/uL (130-400); RED CELL DISTRIBUTION WIDTH 15.5 % (11.5-14.5); WHITE BLOOD COUNT 10.4 K/uL (4.8-10.8)
[2017-02-02 06:53] LABS: ALB/GLOB RATIO 1.3 (1.0-2.1); BILIRUBIN,TOTAL 0.7 mg/dL (0.2-1.3)
[2017-02-02 06:54] LABS: CALCIUM 7.6 mg/dl (8.6-10.4); MAGNESIUM 1.5 mg/dL (1.6-2.3); PHOSPHOROUS 2.2 mg/dL (2.5-4.5)
[2017-02-02 07:40] LABS: MYELOCYTE 3 % (0-0); NEUTROPHIL 74 % (50-75); REACTIVE LYMPHOCYTES 1 % (0-0); TOTAL CELLS COUNTED 100
[2017-02-02 07:41] LABS: LARGE PLATELETS PRESENT
[2017-02-02] MEDS ORDERED: Sodium Phosphate 15 MMOLE in Sodium Chloride 0.9% 250 ML IVPB ONE (07:41)
[2017-02-02] MEDS: (Novolin R) Insulin Human Regular 100 units/ml vial SC SCH ×5 (07:43→22:00)
[2017-02-02] MEDS: Budesonide 0.25 mg/2 ml Inhal Susp UD INH SCH ×2 (07:58→19:37)
[2017-02-02] MEDS: Magnesium Sulfate 1 gm in D5W 1 GM/100 ML BAG IVPB SCH ×2 (08:00→08:53)
--- NOTE | 2017-02-02 09:28 | CP.PCM.PN ---
Subjective - Date & Time of Evaluation Date of Evaluation: 02/02/17 Time of Evaluation: 07:40 - Subjective Subjective: EP-Cardiology Progress Note Dr. Rice Patient seen and examined at bedside in the ICU. No acute events overnight. Today, remains in sinus rhythm with frequent APCs, rate 80's-90's. No acute complaints at time of exam, denies sensation of palpitations. Resting comfortably in bed. Some persisting wheezing today, so Cardiac cath canceled today as per Dr. Lafleur. Objective - Vital Signs/Intake and Output Vital Signs (last 24 hours): Temp Pulse Resp BP Pulse Ox 97.6 F 83 16 133/80 91 L 02/02/17 00:00 02/02/17 06:40 02/02/17 06:40 02/02/17 06:21 02/02/17 06:30 Intake and Output: 02/02/17 02/02/17 06:59 18:59 Intake Total 1056 88 Output Total 913 83 Balance 143 5 - Medications Medications: Current Medications Acetylcysteine (Acetylcysteine 20%) 6 ml PO Q12 [facility] Stop: 02/03/17 22:01 Last Admin: 02/01/17 21:22 Dose: 6 ml Albuterol/Ipratropium (Duoneb 3 Mg/0.5 Mg (3 Ml) Ud) 3 ml INH RQ6 [facility] Last Admin: 02/02/17 07:58 Dose: 3 ml Amiodarone HCl (Cordarone) 200 mg PO DAILY [facility] Last Admin: 02/01/17 17:22 Dose: 200 mg Budesonide (Pulmicort Respules) 0.25 mg INH RQ12 [facility] Last Admin: 02/02/17 07:58 Dose: 0.25 mg Furosemide (Lasix) 20 mg PO BID [facility] Heparin Sodium/Sodium Chloride (Heparin 03936 Units/250ml 1/2 Normal Saline) 25 ,000 units in 250 mls @ 0 mls/hr IV .Q0M PRN; Protocol; Per Protocol PRN Reason: PROTOCOL Last Titration: 02/02/17 08:07 Dose: 9 u/kg/hr, 6.042 mls/hr Sodium Chloride (Sodium Chloride 0.9%) 1,000 mls @ 75 mls/hr IV .[id number] [facility] Last Admin: 02/02/17 00:00 Dose: Not Given Diltiazem HCl 125 mg/ Dextrose 125 mls @ 7.5 mls/hr IV .[id number] NGUYỄN; 7.5 MG/HR PRN Reason: Protocol Last Admin: 02/02/17 06:00 Dose: Not Given Sodium Phosphate 15 mmole/ (Sodium Chloride) 255 mls @ 50 mls/hr IVPB .Q5H6M ONE Stop: 02/02/17 12:46 Insulin Human Regular (Novolin R) 0 unit SC ACHS [facility] PRN Reason: Protocol Last Admin: 02/02/17 07:43 Dose: Not Given Morphine Sulfate (Morphine) 1 mg IVP Q4H PRN PRN Reason: Pain, severe (8-10) Nebivolol (Bystolic) 10 mg PO DAILY [facility] [id number] Ethyl Esters (Lovaza) 1 gm PO DAILY [facility] Last Admin: 02/01/17 10:00 Dose: 1 gm Ondansetron HCl (Zofran Inj) 4 mg IVP Q6 PRN PRN Reason: Nausea/Vomiting Pantoprazole Sodium (Protonix Ec Tab) 40 mg PO DAILY [facility] Last Admin: 02/01/17 10:00 Dose: 40 mg Prednisone (Prednisone Tab) 20 mg PO BID [facility] Last Admin: 02/01/17 19:02 Dose: 20 mg Prednisone (Prednisone Tab) 10 mg PO BID [facility] Last Admin: 02/01/17 19:02 Dose: 10 mg Rivaroxaban (Xarelto) 10 mg PO DAILY [facility] Last Admin: 02/01/17 10:00 Dose: 10 mg Tiotropium [place] (Spiriva) 18 mcg INH RQ24 [facility] Last Admin: 02/01/17 07:18 Dose: 18 mcg - Labs Labs: 02/02/17 06:22 02/02/17 06:22 PT 11.7 SECONDS (9.7-12.2) 01/31/17 07:49 INR 1.0 01/31/17 07:49 APTT 134 SECONDS (21-34) H* D 02/02/17 06:22 - Additional Findings Additional findings: General: NAD, resting comfortably in bed, non-toxic Head: NCAT, Normal inspection Eyes: EOMI, Normal appearance, No Conjunctival injection/scleral icterus or Irregular/Uneven Pupils ENT: Moist mucous membranes, Normal speech Neck: supple, appropriate ROM, no JVD Cardio: Regular rate and rhythm, intermittent APCs on bedside tele monitor, muffled heart sounds, no LE edema, intact radial pulses bilaterally Pulm: diffuse wheezing and rhonchi in all ausculated currie; no tachypnea, no respiratory distress, no joe cyanosis GI: old healed midline surgical scar, + BS, soft, NTND, no masses palpated, not firm/rigid on palpation MSK: no edema, no tenderness, no erythema, cool extremities R > L; Dorsal pulses +1 on left, not-palpated on right. Neuro: Awake and alert, oriented to self and location, answering questions appropriately and following commands appropriately Assessment and Plan (1) Cardiac arrhythmia, unspecified Assessment & Plan: EKG 01/29/17: Sinus tachycardia with premature supraventricular complexes at 114 , QTc prolonged at 472, Right bundle branch block, Inferior infarct (age undetermined), Abnormal ECG EKG 02/01/17 Rapid Response #1: Atrial flutter with 2:1 AV conduction at 156, QTc prolonged at 538, Left axis deviation, Pulmonary disease pattern, Right bundle branch block, Abnormal ECG EKG 02/01/17 Rapid Response #2: Wide QRS tachycardia at 162, QRS prolonged at 122 , QTc prolonged at 522, Right bundle branch block, Inferior infarct (age undetermined), Abnormal ECG EKG 02/01/17 PM: Sinus rhythm with premature supraventricular complexes at 122, QRS prolonged at 122, Left axis deviation, Right bundle branch block, T wave abnormality (consider lateral ischemia), Abnormal ECG Echo 01/30/17: LVEF 51%, Mildly dilated LV, Moderately dilated LA, Mild-mod concentric LVH, RVSP 50-60 mmHg, severe pulm HTN, mild-mod TR Admission trops negative x3, trops since rapid responses negative x3 -Tachy arrhythmia, AFib with RVR vs AFlutter vs VTach -Stable on Cardizem drip 7.5mg/hr, can attempt to wean as feasible -Continue medical management, continue PO Amiodarone 200mg PO daily -No cardiac cath as per Primary Cardio (Dr. Lafleur) as pt still experiencing persisting wheezes -Trops since RR negative x3 -EKGs during rapid concerning for AFlutter 2:1 conduction, possible Vtach; repeat overnight sinus tachy with premature supraventricular complexes -Hemodynamically stable, appropriate mentation, so no emergent electrical cardioversion indicated, will continue to monitor -Continue close monitoring in ICU, continue telemetry monitoring -Continue additional medication management as per Primary cardio team -Heparin Drip for AC Status: Acute (2) AAA (abdominal aortic aneurysm) Assessment & Plan: -Hx AAA s/p bypass graft with 2 iliac limbs, now 4.4cm on CTA; R iliac limb chronically occluded, 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 Rice.
[2017-02-02] MEDS ORDERED: MethylPREDNISolone 40 mg Vial IVP ONE (09:45)
[2017-02-02] MEDS: Omega-3-Acid Ethyl Esters 1 GM Cap PO SCH (10:00)
[2017-02-02] MEDS: Pantoprazole 40 mg EC Tab PO SCH (10:00)
--- NOTE | 2017-02-02 10:11 | CP.PCM.PN ---
Subjective - Date & Time of Evaluation Date of Evaluation: 02/02/17 Time of Evaluation: 10:06 - Subjective Subjective: Surgery: Dr. Yousif Patient seen in examined in ICU. Patient doing well. No complaints today. He denies chest pain or SOB. No acute events noted overnight. Objective - Vital Signs/Intake and Output Vital Signs (last 24 hours): Temp Pulse Resp BP Pulse Ox 97.6 F 83 16 133/80 91 L 02/02/17 00:00 02/02/17 06:40 02/02/17 06:40 02/02/17 06:21 02/02/17 06:30 Intake and Output: 02/02/17 02/02/17 06:59 18:59 Intake Total 1056 88 Output Total 913 83 Balance 143 5 - Medications Medications: Current Medications Acetylcysteine (Acetylcysteine 20%) 6 ml PO Q12 [facility] Stop: 02/03/17 22:01 Last Admin: 02/01/17 21:22 Dose: 6 ml Albuterol/Ipratropium (Duoneb 3 Mg/0.5 Mg (3 Ml) Ud) 3 ml INH RQ6 [facility] Last Admin: 02/02/17 07:58 Dose: 3 ml Amiodarone HCl (Cordarone) 200 mg PO DAILY [facility] Last Admin: 02/02/17 09:59 Dose: 200 mg Budesonide (Pulmicort Respules) 0.25 mg INH RQ12 [facility] Last Admin: 02/02/17 07:58 Dose: 0.25 mg Diltiazem HCl (Cardizem) 60 mg PO Q8H [facility] Last Admin: 02/02/17 10:02 Dose: 60 mg Furosemide (Lasix) 20 mg PO BID [facility] Heparin Sodium/Sodium Chloride (Heparin 72349 Units/250ml 1/2 Normal Saline) 25 ,000 units in 250 mls @ 0 mls/hr IV .Q0M PRN; Protocol; Per Protocol PRN Reason: PROTOCOL Last Titration: 02/02/17 08:07 Dose: 9 u/kg/hr, 6.042 mls/hr Sodium Chloride (Sodium Chloride 0.9%) 1,000 mls @ 75 mls/hr IV .[id number] [facility] Last Admin: 02/02/17 00:00 Dose: Not Given Diltiazem HCl 125 mg/ Dextrose 125 mls @ 7.5 mls/hr IV .[id number] NGUYỄN; 7.5 MG/HR PRN Reason: Protocol Last Admin: 02/02/17 06:00 Dose: Not Given Sodium Phosphate 15 mmole/ (Sodium Chloride) 255 mls @ 50 mls/hr IVPB .Q5H6M [facility] Stop: 02/02/17 12:46 Insulin Human Regular (Novolin R) 0 unit SC ACHS [facility] PRN Reason: Protocol Last Admin: 02/02/17 07:43 Dose: Not Given Methylprednisolone (Solu-Medrol) 40 mg IVP Q12H [facility] Morphine Sulfate (Morphine) 1 mg IVP Q4H PRN PRN Reason: Pain, severe (8-10) [id number] Ethyl Esters (Lovaza) 1 gm PO DAILY [facility] Last Admin: 02/02/17 10:00 Dose: 1 gm Ondansetron HCl (Zofran Inj) 4 mg IVP Q6 PRN PRN Reason: Nausea/Vomiting Pantoprazole Sodium (Protonix Ec Tab) 40 mg PO DAILY [facility] Last Admin: 02/02/17 10:00 Dose: 40 mg Rivaroxaban (Xarelto) 10 mg PO DAILY [facility] Last Admin: 02/01/17 10:00 Dose: 10 mg Tiotropium [place] (Spiriva) 18 mcg INH RQ24 [facility] Last Admin: 02/01/17 07:18 Dose: 18 mcg - Labs Labs: 02/02/17 06:22 02/02/17 06:22 PT 11.7 SECONDS (9.7-12.2) 01/31/17 07:49 INR 1.0 01/31/17 07:49 APTT 134 SECONDS (21-34) H* D 02/02/17 06:22 - Constitutional Appears: Non-toxic, No Acute Distress - Head Exam Head Exam: ATRAUMATIC, NORMOCEPHALIC - Eye Exam Eye Exam: EOMI - ENT Exam ENT Exam: Mucous Membranes Moist - Respiratory Exam Respiratory Exam: NORMAL BREATHING PATTERN. absent: Respiratory Distress - Cardiovascular Exam Cardiovascular Exam: REGULAR RHYTHM. absent: Tachycardia - GI/Abdominal Exam GI & Abdominal Exam: Soft. absent: Distended, Tenderness - Extremities Exam Extremities Exam: Normal Inspection. absent: Calf Tenderness Additional comments: warm to touch - Neurological Exam Neurological Exam: Alert, Awake - Psychiatric Exam Psychiatric exam: Normal Affect, Normal Mood - Skin Skin Exam: Dry, Warm Assessment and Plan - Assessment and Plan (Free Text) Assessment: 81 y/o male w/ iliac aneurysm s/p bypass graft w/ evidence of some retrograde flow Plan: -will plan of angio on Wednesday 02/07 in attempt for endovascular embolization of back flow into iliac aneurysm -cont medical management -will follow -patient seen and examined with Dr. Nica Neumann PGY1
[2017-02-02] MEDS: Tiotropium 18 mcg Cap For Inhalation INH SCH (10:18)
[2017-02-02] MEDS: Acetylcysteine 20% Inhal Soln (4ml) PO SCH (10:50)
[2017-02-02] MEDS ORDERED: Sodium Chloride 0.9% 1,000 ML IV SCH (12:00)
--- NOTE | 2017-02-02 13:07 | CP.CCUPN ---
<Aristeo Tom - Last Filed: 02/02/17 13:05> CCU Subjective - Physician Review Subjective (Free Text): 02/02/17 13:05 PGY-1 ICU progress note Pt seen and examined at bedside. Pt states that he feels ok. Has some coughing still, but is not sob. Denies any headaches, fevers, chills, chest pain, palpitations, sob, nausea or vomiting. Critical Care Time Spent (in minutes): 35 CCU Objective - Vital Signs / Intake & Output Vital Signs (Last 4 hours): Vital Signs Pulse Resp BP Pulse Ox 02/02/17 11:51 72 16 117/70 95 02/02/17 11:50 71 15 96 02/02/17 11:40 75 16 96 02/02/17 11:30 70 17 96 02/02/17 11:21 72 17 132/69 96 02/02/17 11:20 75 16 97 02/02/17 11:10 78 16 92 L 02/02/17 11:00 83 20 93 L 02/02/17 10:51 78 17 126/74 97 02/02/17 10:50 77 17 96 02/02/17 10:40 80 17 97 02/02/17 10:30 86 16 95 02/02/17 10:21 75 15 118/68 92 L 02/02/17 10:20 81 18 90 L 02/02/17 10:10 78 19 95 02/02/17 10:00 79 16 95 02/02/17 09:51 81 19 121/71 95 02/02/17 09:50 78 16 95 02/02/17 09:40 82 16 89 L 02/02/17 09:30 81 17 82 L 02/02/17 09:21 77 15 116/66 77 L 02/02/17 09:20 77 15 77 L 02/02/17 09:10 84 15 85 L Intake and Output (Last 8hrs): Intake & Output 02/01/17 02/02/17 02/02/17 22:59 06:59 14:59 Intake Total 657.0 704 168 Output Total 249 664 83 Balance 408.0 40 85 Weight 145 lb 5 oz Intake: IV 0 0 Intake, IV Amount 657.0 704 168 Left 64 64 8 Left Forearm 45.0 40 10 Left Wrist 548 600 150 Output: Urine 249 664 83 Urine, Voided 249 664 83 - Physical Exam Head: Positive for: Atraumatic, Normocephalic Pupils: Positive for: PERRL Respiratory/Chest: Positive for: Wheezes. Negative for: Respiratory Distress, Accessory Muscle Use Cardiovascular: Positive for: Regular Rate and Rhythm, Normal S1, S2 Abdomen: Positive for: Normal Bowel Sounds. Negative for: Tenderness, Distention Upper Extremity: Positive for: NORMAL PULSES Lower Extremity: Positive for: NORMAL PULSES Neurological: Positive for: Speech Normal, Motor Func Grossly Intact Skin: Positive for: Warm, Dry Psychiatric: Positive for: Alert, Oriented x 3 - Medications Active Medications: Active Medications Generic Name Dose Route Start Last Admin Trade Name Freq PRN Reason Stop Dose Admin Albuterol/Ipratropium 3 ml 01/30/17 08:00 02/02/17 07:58 Duoneb 3 Mg/0.5 Mg (3 Ml) Ud INH 3 ml RQ6 NGUYỄN Administration Amiodarone HCl 200 mg 02/01/17 17:15 02/02/17 09:59 Cordarone PO 200 mg DAILY NGUYỄN Administration Budesonide 0.25 mg 01/30/17 20:00 02/02/17 07:58 Pulmicort Respules INH 0.25 mg RQ12 NGUYỄN Administration Diltiazem HCl 60 mg 02/02/17 10:00 02/02/17 10:02 Cardizem PO 60 mg Q8H NGUYỄN Administration Furosemide 20 mg 02/01/17 10:00 Lasix PO BID NGUYỄN Heparin Sodium/Sodium Chloride 25,000 units in 250 mls @ 0 mls/hr 02/01/17 11: 00 02/02/17 08:07 Heparin 79289 Units/250ml 1/2 Normal Saline IV 9 u/kg/hr .Q0M PRN 6.042 mls/hr PROTOCOL Titration Protocol Per Protocol Diltiazem HCl 125 mg/ Dextrose 125 mls @ 7.5 mls/hr 02/01/17 14:06 02/02/17 06:00 IV Not Given .[id number] NGUYỄN Protocol 7.5 MG/HR Sodium Chloride 1,000 mls @ 60 mls/hr 02/02/17 12:00 02/02/17 12:42 Sodium Chloride 0.9% IV 60 mls/hr .[id number] NGUYỄN Administration Insulin Human Regular 0 unit 01/30/17 07:30 02/02/17 12:37 Novolin R SC 6 unit ACHS NGUYỄN Administration Protocol Methylprednisolone 40 mg 02/02/17 18:00 Solu-Medrol IVP Q8H NGUYỄN Morphine Sulfate 1 mg 01/30/17 02:53 Morphine IVP Q4H PRN Pain, severe (8-10) [id number] Ethyl Esters 1 gm 01/30/17 10:00 02/02/17 10:00 Lovaza PO 1 gm DAILY NGUYỄN Administration Ondansetron HCl 4 mg 01/30/17 02:53 Zofran Inj IVP Q6 PRN Nausea/Vomiting Pantoprazole Sodium 40 mg 01/30/17 10:00 02/02/17 10:00 Protonix Ec Tab PO 40 mg DAILY NGUYỄN Administration Promethazine HCl/Dextromethorphan 5 ml 02/02/17 11:54 Phenergan Dm Syrup PO Q6H PRN Cough Rivaroxaban 10 mg 01/31/17 10:00 02/01/17 10:00 Xarelto PO 10 mg DAILY NGUYỄN Administration Tiotropium Twining 18 mcg 01/31/17 08:00 02/02/17 10:18 Spiriva INH 18 mcg RQ24 NGUYỄN Administration - Patient Studies Lab Studies: Lab Studies 02/02/17 02/02/17 02/02/17 Range/Units 12:17 07:31 06:22 WBC (4.8-10.8) K/uL RBC (4.40-5.90) Mil/uL Hgb (12.0-18.0) g/dL Hct (35.0-51.0) % MCV (80.0-94.0) fL MCH (27.0-31.0) pg MCHC (33.0-37.0) g/dL RDW (11.5-14.5) % Plt Count (130-400) K/uL MPV (7.2-11.7) fL Neut % (Auto) (50.0-75.0) % Lymph % (Auto) (20.0-40.0) % Jenkins % (Auto) (0.0-10.0) % Eos % (Auto) (0.0-4.0) % Baso % (Auto) (0.0-2.0) % Neut # (1.8-7.0) K/uL Lymph # (1.0-4.3) K/uL Jenkins # (0.0-0.8) K/uL Eos # (0.0-0.7) K/uL Baso # (0.0-0.2) K/uL Neutrophils % (Manual) (50-75) % Band Neutrophils % (0-2) % Lymphocytes % (Manual) (20-40) % Reactive Lymphs % (0-0) % Monocytes % (Manual) (0-10) % Myelocytes % (0-0) % Platelet Estimate (NORMAL) Large Platelets Hypochromasia (manual) Poikilocytosis (manual Basophilic Stippling Anisocytosis (manual) Isac Cells APTT 134 H* D (21-34) SECONDS Sodium (132-148) mmol/L Potassium (3.6-5.2) mmol/L Chloride (98-107) mmol/L Carbon Dioxide (22-30) mmol/L Anion Gap (10-20) BUN (9-20) mg/dL Creatinine (0.8-1.5) MG/DL Est GFR ( Amer) Est GFR (Non-Af Amer) POC Glucose (mg/dL) 330 H 178 H (65-110) mg/dL Random Glucose (75-110) mg/dL Calcium (8.6-10.4) mg/dl Phosphorus (2.5-4.5) mg/dL Magnesium (1.6-2.3) mg/dL Total Bilirubin (0.2-1.3) mg/dL AST (17-59) U/L ALT (21-72) U/L Alkaline Phosphatase (38-126) U/L Total Creatine Kinase (55-170) U/L CK-MB (Mass) (0.0-3.38) ng/mL Troponin I, Quant (0.00-0.120) ng/mL Total Protein (6.3-8.3) g/dL Albumin (3.5-5.0) g/dL Globulin (2.2-3.9) gm/dL Albumin/Globulin Ratio (1.0-2.1) 02/02/17 02/02/17 02/02/17 Range/Units 06:22 06:22 05:58 WBC 10.4 (4.8-10.8) K/uL RBC 3.49 L (4.40-5.90) Mil/uL Hgb 9.9 L (12.0-18.0) g/dL Hct 30.3 L (35.0-51.0) % MCV 86.9 (80.0-94.0) fL MCH 28.4 (27.0-31.0) pg MCHC 32.7 L (33.0-37.0) g/dL RDW 15.5 H (11.5-14.5) % Plt Count 114 L (130-400) K/uL MPV 10.0 (7.2-11.7) fL Neut % (Auto) 91.7 H (50.0-75.0) % Lymph % (Auto) 2.0 L (20.0-40.0) % Jenkins % (Auto) 6.3 (0.0-10.0) % Eos % (Auto) 0.0 (0.0-4.0) % Baso % (Auto) 0.0 (0.0-2.0) % Neut # 9.6 H (1.8-7.0) K/uL Lymph # 0.2 L (1.0-4.3) K/uL Jenkins # 0.7 (0.0-0.8) K/uL Eos # 0.0 (0.0-0.7) K/uL Baso # 0.0 (0.0-0.2) K/uL Neutrophils % (Manual) 74 (50-75) % Band Neutrophils % 9 H (0-2) % Lymphocytes % (Manual) 3 L (20-40) % Reactive Lymphs % 1 H (0-0) % Monocytes % (Manual) 10 (0-10) % Myelocytes % 3 H (0-0) % Platelet Estimate Slightly decreased L (NORMAL) Large Platelets Present Hypochromasia (manual) Slight Poikilocytosis (manual Slight Basophilic Stippling Slight Anisocytosis (manual) Slight Weems Cells Slight APTT (21-34) SECONDS Sodium 136 (132-148) mmol/L Potassium 4.0 (3.6-5.2) mmol/L Chloride 98 (98-107) mmol/L Carbon Dioxide 28 (22-30) mmol/L Anion Gap 14 (10-20) BUN 31 H (9-20) mg/dL Creatinine 1.4 (0.8-1.5) MG/DL Est GFR ( Amer) 59 Est GFR (Non-Af Amer) 49 POC Glucose (mg/dL) 225 H (65-110) mg/dL Random Glucose 170 H (75-110) mg/dL Calcium 7.6 L (8.6-10.4) mg/dl Phosphorus 2.2 L (2.5-4.5) mg/dL Magnesium 1.5 L (1.6-2.3) mg/dL Total Bilirubin 0.7 (0.2-1.3) mg/dL AST 41 (17-59) U/L ALT 46 (21-72) U/L Alkaline Phosphatase 83 (38-126) U/L Total Creatine Kinase (55-170) U/L CK-MB (Mass) (0.0-3.38) ng/mL Troponin I, Quant (0.00-0.120) ng/mL Total Protein 6.0 L (6.3-8.3) g/dL Albumin 3.4 L (3.5-5.0) g/dL Globulin 2.6 (2.2-3.9) gm/dL Albumin/Globulin Ratio 1.3 (1.0-2.1) 02/01/17 02/01/17 02/01/17 Range/Units 22:20 22:20 21:07 WBC (4.8-10.8) K/uL RBC (4.40-5.90) Mil/uL Hgb (12.0-18.0) g/dL Hct (35.0-51.0) % MCV (80.0-94.0) fL MCH (27.0-31.0) pg MCHC (33.0-37.0) g/dL RDW (11.5-14.5) % Plt Count (130-400) K/uL MPV (7.2-11.7) fL Neut % (Auto) (50.0-75.0) % Lymph % (Auto) (20.0-40.0) % Jenkins % (Auto) (0.0-10.0) % Eos % (Auto) (0.0-4.0) % Baso % (Auto) (0.0-2.0) % Neut # (1.8-7.0) K/uL Lymph # (1.0-4.3) K/uL Jenkins # (0.0-0.8) K/uL Eos # (0.0-0.7) K/uL Baso # (0.0-0.2) K/uL Neutrophils % (Manual) (50-75) % Band Neutrophils % (0-2) % Lymphocytes % (Manual) (20-40) % Reactive Lymphs % (0-0) % Monocytes % (Manual) (0-10) % Myelocytes % (0-0) % Platelet Estimate (NORMAL) Large Platelets Hypochromasia (manual) Poikilocytosis (manual Basophilic Stippling Anisocytosis (manual) Weems Cells APTT 66 H D (21-34) SECONDS Sodium (132-148) mmol/L Potassium (3.6-5.2) mmol/L Chloride (98-107) mmol/L Carbon Dioxide (22-30) mmol/L Anion Gap (10-20) BUN (9-20) mg/dL Creatinine (0.8-1.5) MG/DL Est GFR ( Amer) Est GFR (Non-Af Amer) POC Glucose (mg/dL) 126 H (65-110) mg/dL Random Glucose (75-110) mg/dL Calcium (8.6-10.4) mg/dl Phosphorus (2.5-4.5) mg/dL Magnesium (1.6-2.3) mg/dL Total Bilirubin (0.2-1.3) mg/dL AST (17-59) U/L ALT (21-72) U/L Alkaline Phosphatase (38-126) U/L Total Creatine Kinase 474 H (55-170) U/L CK-MB (Mass) 5.24 H (0.0-3.38) ng/mL Troponin I, Quant 0.0440 (0.00-0.120) ng/mL Total Protein (6.3-8.3) g/dL Albumin (3.5-5.0) g/dL Globulin (2.2-3.9) gm/dL Albumin/Globulin Ratio (1.0-2.1) 02/01/17 02/01/17 Range/Units 17:12 15:13 WBC (4.8-10.8) K/uL RBC (4.40-5.90) Mil/uL Hgb (12.0-18.0) g/dL Hct (35.0-51.0) % MCV (80.0-94.0) fL MCH (27.0-31.0) pg MCHC (33.0-37.0) g/dL RDW (11.5-14.5) % Plt Count (130-400) K/uL MPV (7.2-11.7) fL Neut % (Auto) (50.0-75.0) % Lymph % (Auto) (20.0-40.0) % Jenkins % (Auto) (0.0-10.0) % Eos % (Auto) (0.0-4.0) % Baso % (Auto) (0.0-2.0) % Neut # (1.8-7.0) K/uL Lymph # (1.0-4.3) K/uL Jenkins # (0.0-0.8) K/uL Eos # (0.0-0.7) K/uL Baso # (0.0-0.2) K/uL Neutrophils % (Manual) (50-75) % Band Neutrophils % (0-2) % Lymphocytes % (Manual) (20-40) % Reactive Lymphs % (0-0) % Monocytes % (Manual) (0-10) % Myelocytes % (0-0) % Platelet Estimate (NORMAL) Large Platelets Hypochromasia (manual) Poikilocytosis (manual Basophilic Stippling Anisocytosis (manual) Isac Cells APTT (21-34) SECONDS Sodium (132-148) mmol/L Potassium (3.6-5.2) mmol/L Chloride (98-107) mmol/L Carbon Dioxide (22-30) mmol/L Anion Gap (10-20) BUN (9-20) mg/dL Creatinine (0.8-1.5) MG/DL Est GFR ( Amer) Est GFR (Non-Af Amer) POC Glucose (mg/dL) 187 H (65-110) mg/dL Random Glucose (75-110) mg/dL Calcium (8.6-10.4) mg/dl Phosphorus (2.5-4.5) mg/dL Magnesium (1.6-2.3) mg/dL Total Bilirubin (0.2-1.3) mg/dL AST (17-59) U/L ALT (21-72) U/L Alkaline Phosphatase (38-126) U/L Total Creatine Kinase 282 H (55-170) U/L CK-MB (Mass) 3.10 (0.0-3.38) ng/mL Troponin I, Quant 0.0320 (0.00-0.120) ng/mL Total Protein (6.3-8.3) g/dL Albumin (3.5-5.0) g/dL Globulin (2.2-3.9) gm/dL Albumin/Globulin Ratio (1.0-2.1) Laboratory Results - last 24 hr 02/01/17 02/01/17 02/01/17 15:13 17:12 21:07 WBC RBC Hgb Hct MCV MCH MCHC RDW Plt Count MPV Neut % (Auto) Lymph % (Auto) Jenkins % (Auto) Eos % (Auto) Baso % (Auto) Neut # Lymph # Jenkins # Eos # Baso # Neutrophils % (Manual) Band Neutrophils % Lymphocytes % (Manual) Reactive Lymphs % Monocytes % (Manual) Myelocytes % Platelet Estimate Large Platelets Hypochromasia (manual) Poikilocytosis (manual Basophilic Stippling Anisocytosis (manual) Isac Cells APTT Sodium Potassium Chloride Carbon Dioxide Anion Gap BUN Creatinine Est GFR ( Amer) Est GFR (Non-Af Amer) POC Glucose (mg/dL) 187 H 126 H Random Glucose Calcium Phosphorus Magnesium Total Bilirubin AST ALT Alkaline Phosphatase Total Creatine Kinase 282 H CK-MB (Mass) 3.10 Troponin I, Quant 0.0320 Total Protein Albumin Globulin Albumin/Globulin Ratio 02/01/17 02/01/17 02/02/17 22:20 22:20 05:58 WBC RBC Hgb Hct MCV MCH MCHC RDW Plt Count MPV Neut % (Auto) Lymph % (Auto) Jenkins % (Auto) Eos % (Auto) Baso % (Auto) Neut # Lymph # Jenkins # Eos # Baso # Neutrophils % (Manual) Band Neutrophils % Lymphocytes % (Manual) Reactive Lymphs % Monocytes % (Manual) Myelocytes % Platelet Estimate Large Platelets Hypochromasia (manual) Poikilocytosis (manual Basophilic Stippling Anisocytosis (manual) Weems Cells APTT 66 H D Sodium Potassium Chloride Carbon Dioxide Anion Gap BUN Creatinine Est GFR ( Amer) Est GFR (Non-Af Amer) POC Glucose (mg/dL) 225 H Random Glucose Calcium Phosphorus Magnesium Total Bilirubin AST ALT Alkaline Phosphatase Total Creatine Kinase 474 H CK-MB (Mass) 5.24 H Troponin I, Quant 0.0440 Total Protein Albumin Globulin Albumin/Globulin Ratio 02/02/17 02/02/17 02/02/17 06:22 06:22 06:22 WBC 10.4 RBC 3.49 L Hgb 9.9 L Hct 30.3 L MCV 86.9 MCH 28.4 MCHC 32.7 L RDW 15.5 H Plt Count 114 L MPV 10.0 Neut % (Auto) 91.7 H Lymph % (Auto) 2.0 L Jenkins % (Auto) 6.3 Eos % (Auto) 0.0 Baso % (Auto) 0.0 Neut # 9.6 H Lymph # 0.2 L Jenkins # 0.7 Eos # 0.0 Baso # 0.0 Neutrophils % (Manual) 74 Band Neutrophils % 9 H Lymphocytes % (Manual) 3 L Reactive Lymphs % 1 H Monocytes % (Manual) 10 Myelocytes % 3 H Platelet Estimate Slightly decreased L Large Platelets Present Hypochromasia (manual) Slight Poikilocytosis (manual Slight Basophilic Stippling Slight Anisocytosis (manual) Slight Siac Cells Slight APTT 134 H* D Sodium 136 Potassium 4.0 Chloride 98 Carbon Dioxide 28 Anion Gap 14 BUN 31 H Creatinine 1.4 Est GFR ( Amer) 59 Est GFR (Non-Af Amer) 49 POC Glucose (mg/dL) Random Glucose 170 H Calcium 7.6 L Phosphorus 2.2 L Magnesium 1.5 L Total Bilirubin 0.7 AST 41 ALT 46 Alkaline Phosphatase 83 Total Creatine Kinase CK-MB (Mass) Troponin I, Quant Total Protein 6.0 L Albumin 3.4 L Globulin 2.6 Albumin/Globulin Ratio 1.3 02/02/17 02/02/17 07:31 12:17 WBC RBC Hgb Hct MCV MCH MCHC RDW Plt Count MPV Neut % (Auto) Lymph % (Auto) Jenkins % (Auto) Eos % (Auto) Baso % (Auto) Neut # Lymph # Jenkins # Eos # Baso # Neutrophils % (Manual) Band Neutrophils % Lymphocytes % (Manual) Reactive Lymphs % Monocytes % (Manual) Myelocytes % Platelet Estimate Large Platelets Hypochromasia (manual) Poikilocytosis (manual Basophilic Stippling Anisocytosis (manual) Isac Cells APTT Sodium Potassium Chloride Carbon Dioxide Anion Gap BUN Creatinine Est GFR ( Amer) Est GFR (Non-Af Amer) POC Glucose (mg/dL) 178 H 330 H Random Glucose Calcium Phosphorus Magnesium Total Bilirubin AST ALT Alkaline Phosphatase Total Creatine Kinase CK-MB (Mass) Troponin I, Quant Total Protein Albumin Globulin Albumin/Globulin Ratio EKG/Cardiology Studies: Cardiology / EKG Studies 02/01/17 15:00 ELECTROCARDIOGRAM Timed Comment: Mode Of Transportation: Reason For Exam: Afib w/ RVR 02/01/17 21:00 ELECTROCARDIOGRAM Timed Comment: Mode Of Transportation: Reason For Exam: Afib w/ RVR 02/02/17 10:15 EKG [ELECTROCARDIOGRAM] DAILY Comment: Mode Of Transportation: Reason For Exam: f/u, tachy arrhythmia Fingerstick Blood Sugar Results: 330 Review of Systems - Review of Systems All systems: reviewed and no additional remarkable complaints except (where noted in HPI) Critical Care Progress Note - Nutrition Nutrition: Nutrition Category Date Time Status Heart Healthy Diet [DIET] Diets 02/02/17 Breakfast Active Assessment/Plan - Assessment and Plan (Free Text) Assessment: This is an 81 yo M with extensive past medical history transferred to ICU for a tachy arrythmia requiring cardizem drip. Pt now rate controlled, hemodynamically stable and asymptomatic Plan: Neuro: AAOx3 Cont to monitor Cardiovascular: Pt no longer tachycardic. Pt NSR in the 70's on Cardizem drip 5 mg Bridge to PO cardizem today Cath postponed due to resp status, resume heparin drip Trop negative Management per cardio Pulmonary: Saturating well, no respiratory distress Has persistent cough Given one dose of 125mg Solu-medrol, then 40mg q8h Monitor Gastrointestinal: No acute issues Heart healthy diet Hematology: Hemoglobin stable, no acute issues Endocrine: sliding scale coverage Renal: Cont IVF Acetylcysteine for contrast nephropathy protection for cath tomorrow Infectious Disease: Afebrile, no leukocytosis Holding abx per pulm for now GI Prophylaxis: Protonix DVT Prophylaxis: on hep drip Dispo - consider transfer to telemetry later today if continues to be stable <Maykel Lara - Last Filed: 02/02/17 14:28> CCU Objective - Vital Signs / Intake & Output Vital Signs (Last 4 hours): Vital Signs Pulse Resp BP Pulse Ox 02/02/17 12:00 76 16 119/72 95 02/02/17 11:51 72 16 117/70 95 02/02/17 11:50 71 15 96 02/02/17 11:40 75 16 96 02/02/17 11:30 70 17 96 02/02/17 11:21 72 17 132/69 96 02/02/17 11:20 75 16 97 02/02/17 11:10 78 16 92 L 02/02/17 11:00 83 20 93 L 02/02/17 10:51 78 17 126/74 97 02/02/17 10:50 77 17 96 02/02/17 10:40 80 17 97 02/02/17 10:30 86 16 95 Intake and Output (Last 8hrs): Intake & Output 02/01/17 02/02/17 02/02/17 22:59 06:59 14:59 Intake Total 657.0 704 1246 Output Total 249 664 483 Balance 408.0 40 763 Weight 145 lb 5 oz Intake: IV 0 0 Intake, IV Amount 657.0 704 726 Left 64 64 44 Left Forearm 45.0 40 262 Left Wrist 548 600 420 Oral 520 Output: Urine 249 664 483 Urine, Voided 249 664 483 - Medications Active Medications: Active Medications Generic Name Dose Route Start Last Admin Trade Name Freq PRN Reason Stop Dose Admin Albuterol/Ipratropium 3 ml 01/30/17 08:00 02/02/17 14:00 Duoneb 3 Mg/0.5 Mg (3 Ml) Ud INH 3 ml RQ6 NGUYỄN Administration Amiodarone HCl 200 mg 02/01/17 17:15 02/02/17 09:59 Cordarone PO 200 mg DAILY NGUYỄN Administration Budesonide 0.25 mg 01/30/17 20:00 02/02/17 07:58 Pulmicort Respules INH 0.25 mg RQ12 NGUYỄN Administration Diltiazem HCl 60 mg 02/02/17 10:00 02/02/17 10:02 Cardizem PO 60 mg Q8H NGUYỄN Administration Furosemide 20 mg 02/01/17 10:00 Lasix PO BID NGUYỄN Heparin Sodium/Sodium Chloride 25,000 units in 250 mls @ 0 mls/hr 02/01/17 11: 00 02/02/17 08:07 Heparin 35502 Units/250ml 1/2 Normal Saline IV 9 u/kg/hr .Q0M PRN 6.042 mls/hr PROTOCOL Titration Protocol Per Protocol Diltiazem HCl 125 mg/ Dextrose 125 mls @ 7.5 mls/hr 02/01/17 14:06 02/02/17 06:00 IV Not Given .[id number] NGUYỄN Protocol 7.5 MG/HR Sodium Chloride 1,000 mls @ 60 mls/hr 02/02/17 12:00 02/02/17 12:42 Sodium Chloride 0.9% IV 60 mls/hr .[id number] NGUYỄN Administration Insulin Human Regular 0 unit 01/30/17 07:30 02/02/17 12:37 Novolin R SC 6 unit ACHS NGUYỄN Administration Protocol Methylprednisolone 40 mg 02/02/17 18:00 Solu-Medrol IVP Q8H NGUYỄN Morphine Sulfate 1 mg 01/30/17 02:53 Morphine IVP Q4H PRN Pain, severe (8-10) [id number] Ethyl Esters 1 gm 01/30/17 10:00 02/02/17 10:00 Lovaza PO 1 gm DAILY NGUYỄN Administration Ondansetron HCl 4 mg 01/30/17 02:53 Zofran Inj IVP Q6 PRN Nausea/Vomiting Pantoprazole Sodium 40 mg 01/30/17 10:00 02/02/17 10:00 Protonix Ec Tab PO 40 mg DAILY NGUYỄN Administration Promethazine HCl/Dextromethorphan 5 ml 02/02/17 11:54 Phenergan Dm Syrup PO Q6H PRN Cough Rivaroxaban 10 mg 01/31/17 10:00 02/01/17 10:00 Xarelto PO 10 mg DAILY NGUYỄN Administration Tiotropium Twining 18 mcg 01/31/17 08:00 02/02/17 10:18 Spiriva INH 18 mcg RQ24 NGUYỄN Administration - Patient Studies Lab Studies: Lab Studies 05/26/17 05/26/17 05/26/17 Range/Units 14:05 12:17 07:31 WBC (4.8-10.8) K/uL RBC (4.40-5.90) Mil/uL Hgb (12.0-18.0) g/dL Hct (35.0-51.0) % MCV (80.0-94.0) fL MCH (27.0-31.0) pg MCHC (33.0-37.0) g/dL RDW (11.5-14.5) % Plt Count (130-400) K/uL MPV (7.2-11.7) fL Neut % (Auto) (50.0-75.0) % Lymph % (Auto) (20.0-40.0) % Jenkins % (Auto) (0.0-10.0) % Eos % (Auto) (0.0-4.0) % Baso % (Auto) (0.0-2.0) % Neut # (1.8-7.0) K/uL Lymph # (1.0-4.3) K/uL Jenkins # (0.0-0.8) K/uL Eos # (0.0-0.7) K/uL Baso # (0.0-0.2) K/uL Neutrophils % (Manual) (50-75) % Band Neutrophils % (0-2) % Lymphocytes % (Manual) (20-40) % Reactive Lymphs % (0-0) % Monocytes % (Manual) (0-10) % Myelocytes % (0-0) % Platelet Estimate (NORMAL) Large Platelets Hypochromasia (manual) Poikilocytosis (manual Basophilic Stippling Anisocytosis (manual) Isac Cells APTT 64 H D (21-34) SECONDS Sodium (132-148) mmol/L Potassium (3.6-5.2) mmol/L Chloride (98-107) mmol/L Carbon Dioxide (22-30) mmol/L Anion Gap (10-20) BUN (9-20) mg/dL Creatinine (0.8-1.5) MG/DL Est GFR ( Amer) Est GFR (Non-Af Amer) POC Glucose (mg/dL) 330 H 178 H (65-110) mg/dL Random Glucose (75-110) mg/dL Calcium (8.6-10.4) mg/dl Phosphorus (2.5-4.5) mg/dL Magnesium (1.6-2.3) mg/dL Total Bilirubin (0.2-1.3) mg/dL AST (17-59) U/L ALT (21-72) U/L Alkaline Phosphatase (38-126) U/L Total Creatine Kinase (55-170) U/L CK-MB (Mass) (0.0-3.38) ng/mL Troponin I, Quant (0.00-0.120) ng/mL Total Protein (6.3-8.3) g/dL Albumin (3.5-5.0) g/dL Globulin (2.2-3.9) gm/dL Albumin/Globulin Ratio (1.0-2.1) 02/02/17 02/02/17 02/02/17 Range/Units 06:22 06:22 06:22 WBC 10.4 (4.8-10.8) K/uL RBC 3.49 L (4.40-5.90) Mil/uL Hgb 9.9 L (12.0-18.0) g/dL Hct 30.3 L (35.0-51.0) % MCV 86.9 (80.0-94.0) fL MCH 28.4 (27.0-31.0) pg MCHC 32.7 L (33.0-37.0) g/dL RDW 15.5 H (11.5-14.5) % Plt Count 114 L (130-400) K/uL MPV 10.0 (7.2-11.7) fL Neut % (Auto) 91.7 H (50.0-75.0) % Lymph % (Auto) 2.0 L (20.0-40.0) % Jenkins % (Auto) 6.3 (0.0-10.0) % Eos % (Auto) 0.0 (0.0-4.0) % Baso % (Auto) 0.0 (0.0-2.0) % Neut # 9.6 H (1.8-7.0) K/uL Lymph # 0.2 L (1.0-4.3) K/uL Jenkins # 0.7 (0.0-0.8) K/uL Eos # 0.0 (0.0-0.7) K/uL Baso # 0.0 (0.0-0.2) K/uL Neutrophils % (Manual) 74 (50-75) % Band Neutrophils % 9 H (0-2) % Lymphocytes % (Manual) 3 L (20-40) % Reactive Lymphs % 1 H (0-0) % Monocytes % (Manual) 10 (0-10) % Myelocytes % 3 H (0-0) % Platelet Estimate Slightly decreased L (NORMAL) Large Platelets Present Hypochromasia (manual) Slight Poikilocytosis (manual Slight Basophilic Stippling Slight Anisocytosis (manual) Slight Isac Cells Slight APTT 134 H* D (21-34) SECONDS Sodium 136 (132-148) mmol/L Potassium 4.0 (3.6-5.2) mmol/L Chloride 98 (98-107) mmol/L Carbon Dioxide 28 (22-30) mmol/L Anion Gap 14 (10-20) BUN 31 H (9-20) mg/dL Creatinine 1.4 (0.8-1.5) MG/DL Est GFR ( Amer) 59 Est GFR (Non-Af Amer) 49 POC Glucose (mg/dL) (65-110) mg/dL Random Glucose 170 H (75-110) mg/dL Calcium 7.6 L (8.6-10.4) mg/dl Phosphorus 2.2 L (2.5-4.5) mg/dL Magnesium 1.5 L (1.6-2.3) mg/dL Total Bilirubin 0.7 (0.2-1.3) mg/dL AST 41 (17-59) U/L ALT 46 (21-72) U/L Alkaline Phosphatase 83 (38-126) U/L Total Creatine Kinase (55-170) U/L CK-MB (Mass) (0.0-3.38) ng/mL Troponin I, Quant (0.00-0.120) ng/mL Total Protein 6.0 L (6.3-8.3) g/dL Albumin 3.4 L (3.5-5.0) g/dL Globulin 2.6 (2.2-3.9) gm/dL Albumin/Globulin Ratio 1.3 (1.0-2.1) 05/26/17 05/25/17 05/25/17 Range/Units 05:58 22:20 22:20 WBC (4.8-10.8) K/uL RBC (4.40-5.90) Mil/uL Hgb (12.0-18.0) g/dL Hct (35.0-51.0) % MCV (80.0-94.0) fL MCH (27.0-31.0) pg MCHC (33.0-37.0) g/dL RDW (11.5-14.5) % Plt Count (130-400) K/uL MPV (7.2-11.7) fL Neut % (Auto) (50.0-75.0) % Lymph % (Auto) (20.0-40.0) % Jenkins % (Auto) (0.0-10.0) % Eos % (Auto) (0.0-4.0) % Baso % (Auto) (0.0-2.0) % Neut # (1.8-7.0) K/uL Lymph # (1.0-4.3) K/uL Jenkins # (0.0-0.8) K/uL Eos # (0.0-0.7) K/uL Baso # (0.0-0.2) K/uL Neutrophils % (Manual) (50-75) % Band Neutrophils % (0-2) % Lymphocytes % (Manual) (20-40) % Reactive Lymphs % (0-0) % Monocytes % (Manual) (0-10) % Myelocytes % (0-0) % Platelet Estimate (NORMAL) Large Platelets Hypochromasia (manual) Poikilocytosis (manual Basophilic Stippling Anisocytosis (manual) Isac Cells APTT 66 H D (21-34) SECONDS Sodium (132-148) mmol/L Potassium (3.6-5.2) mmol/L Chloride (98-107) mmol/L Carbon Dioxide (22-30) mmol/L Anion Gap (10-20) BUN (9-20) mg/dL Creatinine (0.8-1.5) MG/DL Est GFR ( Amer) Est GFR (Non-Af Amer) POC Glucose (mg/dL) 225 H (65-110) mg/dL Random Glucose (75-110) mg/dL Calcium (8.6-10.4) mg/dl Phosphorus (2.5-4.5) mg/dL Magnesium (1.6-2.3) mg/dL Total Bilirubin (0.2-1.3) mg/dL AST (17-59) U/L ALT (21-72) U/L Alkaline Phosphatase (38-126) U/L Total Creatine Kinase 474 H (55-170) U/L CK-MB (Mass) 5.24 H (0.0-3.38) ng/mL Troponin I, Quant 0.0440 (0.00-0.120) ng/mL Total Protein (6.3-8.3) g/dL Albumin (3.5-5.0) g/dL Globulin (2.2-3.9) gm/dL Albumin/Globulin Ratio (1.0-2.1) 02/01/17 02/01/17 02/01/17 Range/Units 21:07 17:12 15:13 WBC (4.8-10.8) K/uL RBC (4.40-5.90) Mil/uL Hgb (12.0-18.0) g/dL Hct (35.0-51.0) % MCV (80.0-94.0) fL MCH (27.0-31.0) pg MCHC (33.0-37.0) g/dL RDW (11.5-14.5) % Plt Count (130-400) K/uL MPV (7.2-11.7) fL Neut % (Auto) (50.0-75.0) % Lymph % (Auto) (20.0-40.0) % Jenkins % (Auto) (0.0-10.0) % Eos % (Auto) (0.0-4.0) % Baso % (Auto) (0.0-2.0) % Neut # (1.8-7.0) K/uL Lymph # (1.0-4.3) K/uL Jenkins # (0.0-0.8) K/uL Eos # (0.0-0.7) K/uL Baso # (0.0-0.2) K/uL Neutrophils % (Manual) (50-75) % Band Neutrophils % (0-2) % Lymphocytes % (Manual) (20-40) % Reactive Lymphs % (0-0) % Monocytes % (Manual) (0-10) % Myelocytes % (0-0) % Platelet Estimate (NORMAL) Large Platelets Hypochromasia (manual) Poikilocytosis (manual Basophilic Stippling Anisocytosis (manual) Isac Cells APTT (21-34) SECONDS Sodium (132-148) mmol/L Potassium (3.6-5.2) mmol/L Chloride (98-107) mmol/L Carbon Dioxide (22-30) mmol/L Anion Gap (10-20) BUN (9-20) mg/dL Creatinine (0.8-1.5) MG/DL Est GFR ( Amer) Est GFR (Non-Af Amer) POC Glucose (mg/dL) 126 H 187 H (65-110) mg/dL Random Glucose (75-110) mg/dL Calcium (8.6-10.4) mg/dl Phosphorus (2.5-4.5) mg/dL Magnesium (1.6-2.3) mg/dL Total Bilirubin (0.2-1.3) mg/dL AST (17-59) U/L ALT (21-72) U/L Alkaline Phosphatase (38-126) U/L Total Creatine Kinase 282 H (55-170) U/L CK-MB (Mass) 3.10 (0.0-3.38) ng/mL Troponin I, Quant 0.0320 (0.00-0.120) ng/mL Total Protein (6.3-8.3) g/dL Albumin (3.5-5.0) g/dL Globulin (2.2-3.9) gm/dL Albumin/Globulin Ratio (1.0-2.1) Laboratory Results - last 24 hr 02/01/17 02/01/17 02/01/17 15:13 17:12 21:07 WBC RBC Hgb Hct MCV MCH MCHC RDW Plt Count MPV Neut % (Auto) Lymph % (Auto) Jenkins % (Auto) Eos % (Auto) Baso % (Auto) Neut # Lymph # Jenkins # Eos # Baso # Neutrophils % (Manual) Band Neutrophils % Lymphocytes % (Manual) Reactive Lymphs % Monocytes % (Manual) Myelocytes % Platelet Estimate Large Platelets Hypochromasia (manual) Poikilocytosis (manual Basophilic Stippling Anisocytosis (manual) Isac Cells APTT Sodium Potassium Chloride Carbon Dioxide Anion Gap BUN Creatinine Est GFR ( Amer) Est GFR (Non-Af Amer) POC Glucose (mg/dL) 187 H 126 H Random Glucose Calcium Phosphorus Magnesium Total Bilirubin AST ALT Alkaline Phosphatase Total Creatine Kinase 282 H CK-MB (Mass) 3.10 Troponin I, Quant 0.0320 Total Protein Albumin Globulin Albumin/Globulin Ratio 02/01/17 02/01/17 02/02/17 22:20 22:20 05:58 WBC RBC Hgb Hct MCV MCH MCHC RDW Plt Count MPV Neut % (Auto) Lymph % (Auto) Jenkins % (Auto) Eos % (Auto) Baso % (Auto) Neut # Lymph # Jenkins # Eos # Baso # Neutrophils % (Manual) Band Neutrophils % Lymphocytes % (Manual) Reactive Lymphs % Monocytes % (Manual) Myelocytes % Platelet Estimate Large Platelets Hypochromasia (manual) Poikilocytosis (manual Basophilic Stippling Anisocytosis (manual) [place]ems Cells APTT 66 H D Sodium Potassium Chloride Carbon Dioxide Anion Gap BUN Creatinine Est GFR ( Amer) Est GFR (Non-Af Amer) POC Glucose (mg/dL) 225 H Random Glucose Calcium Phosphorus Magnesium Total Bilirubin AST ALT Alkaline Phosphatase Total Creatine Kinase 474 H CK-MB (Mass) 5.24 H Troponin I, Quant 0.0440 Total Protein Albumin Globulin Albumin/Globulin Ratio 02/02/17 02/02/17 02/02/17 06:22 06:22 06:22 WBC 10.4 RBC 3.49 L Hgb 9.9 L Hct 30.3 L MCV 86.9 MCH 28.4 MCHC 32.7 L RDW 15.5 H Plt Count 114 L MPV 10.0 Neut % (Auto) 91.7 H Lymph % (Auto) 2.0 L Jenkins % (Auto) 6.3 Eos % (Auto) 0.0 Baso % (Auto) 0.0 Neut # 9.6 H Lymph # 0.2 L Jenkins # 0.7 Eos # 0.0 Baso # 0.0 Neutrophils % (Manual) 74 Band Neutrophils % 9 H Lymphocytes % (Manual) 3 L Reactive Lymphs % 1 H Monocytes % (Manual) 10 Myelocytes % 3 H Platelet Estimate Slightly decreased L Large Platelets Present Hypochromasia (manual) Slight Poikilocytosis (manual Slight Basophilic Stippling Slight Anisocytosis (manual) Slight Weems Cells Slight APTT 134 H* D Sodium 136 Potassium 4.0 Chloride 98 Carbon Dioxide 28 Anion Gap 14 BUN 31 H Creatinine 1.4 Est GFR ( Amer) 59 Est GFR (Non-Af Amer) 49 POC Glucose (mg/dL) Random Glucose 170 H Calcium 7.6 L Phosphorus 2.2 L Magnesium 1.5 L Total Bilirubin 0.7 AST 41 ALT 46 Alkaline Phosphatase 83 Total Creatine Kinase CK-MB (Mass) Troponin I, Quant Total Protein 6.0 L Albumin 3.4 L Globulin 2.6 Albumin/Globulin Ratio 1.3 02/02/17 02/02/17 02/02/17 07:31 12:17 14:05 WBC RBC Hgb Hct MCV MCH MCHC RDW Plt Count MPV Neut % (Auto) Lymph % (Auto) Jenkins % (Auto) Eos % (Auto) Baso % (Auto) Neut # Lymph # Jenkins # Eos # Baso # Neutrophils % (Manual) Band Neutrophils % Lymphocytes % (Manual) Reactive Lymphs % Monocytes % (Manual) Myelocytes % Platelet Estimate Large Platelets Hypochromasia (manual) Poikilocytosis (manual Basophilic Stippling Anisocytosis (manual) Weems Cells APTT 64 H D Sodium Potassium Chloride Carbon Dioxide Anion Gap BUN Creatinine Est GFR ( Amer) Est GFR (Non-Af Amer) POC Glucose (mg/dL) 178 H 330 H Random Glucose Calcium Phosphorus Magnesium Total Bilirubin AST ALT Alkaline Phosphatase Total Creatine Kinase CK-MB (Mass) Troponin I, Quant Total Protein Albumin Globulin Albumin/Globulin Ratio EKG/Cardiology Studies: Cardiology / EKG Studies 02/01/17 15:00 ELECTROCARDIOGRAM Timed Comment: Mode Of Transportation: Reason For Exam: ib w/ RVR 02/01/17 21:00 ELECTROCARDIOGRAM Timed Comment: Mode Of Transportation: Reason For Exam: [facility] w/ R 02/02/17 10:15 EKG [ELECTROCARDIOGRAM] DAILY Comment: Mode Of Transportation: Reason For Exam: f/u, tachy arrhythmia Critical Care Progress Note - Nutrition Nutrition: Nutrition Category Date Time Status Heart Healthy Diet [DIET] Diets 02/02/17 Breakfast Active Attending/Attestation - Attestation I have personally seen and examined this patient.: Yes I have fully participated in the care of the patient.: Yes I have reviewed all pertinent clinical information: Yes Notes (Text): 02/02/17 14:24 Pt seen and examined on rounds with Dr. Tom and wait staff. All pertinent PN/ labs/meds/imaging reviewed personally and discussed with involved consultants. I agree with the assessment and plan as outlined above which reflects my direct input. asymptomatic. hemodynamics stable wean off CCB gtt cont to hold BB for now cont anticoagulation start IV steroids for persistent wheezing pulm / cards following cardiac cath on hold vascular intervention planned as per surgery next week cont supportive mgmt appropriate for transfer to med/surg with tele Maykel Lara MD 02/02/17 14:27
--- NOTE | 2017-02-02 13:17 | CP.PCM.PN ---
Subjective - Date & Time of Evaluation Date of Evaluation: 02/02/17 Time of Evaluation: 09:40 - Subjective Subjective: patient seen and examined in the intensive care unit On Cardizem drip Still wheezing Afebrile with no chest pain Objective - Vital Signs/Intake and Output Vital Signs (last 24 hours): Temp Pulse Resp BP Pulse Ox 97.6 F 72 16 117/70 95 02/02/17 00:00 02/02/17 11:51 02/02/17 11:51 02/02/17 11:51 02/02/17 11:51 Intake and Output: 02/02/17 02/02/17 06:59 18:59 Intake Total 1056 168 Output Total 913 83 Balance 143 85 - Medications Medications: Current Medications Albuterol/Ipratropium (Duoneb 3 Mg/0.5 Mg (3 Ml) Ud) 3 ml INH RQ6 [facility] Last Admin: 02/02/17 07:58 Dose: 3 ml Amiodarone HCl (Cordarone) 200 mg PO DAILY [facility] Last Admin: 02/02/17 09:59 Dose: 200 mg Budesonide (Pulmicort Respules) 0.25 mg INH RQ12 [facility] Last Admin: 02/02/17 07:58 Dose: 0.25 mg Diltiazem HCl (Cardizem) 60 mg PO Q8H [facility] Last Admin: 02/02/17 10:02 Dose: 60 mg Furosemide (Lasix) 20 mg PO BID [facility] Heparin Sodium/Sodium Chloride (Heparin 20032 Units/250ml 1/2 Normal Saline) 25 ,000 units in 250 mls @ 0 mls/hr IV .Q0M PRN; Protocol; Per Protocol PRN Reason: PROTOCOL Last Titration: 02/02/17 08:07 Dose: 9 u/kg/hr, 6.042 mls/hr Diltiazem HCl 125 mg/ Dextrose 125 mls @ 7.5 mls/hr IV .[id number] NGUY[facility]N; 7.5 MG/HR PRN Reason: Protocol Last Admin: 02/02/17 06:00 Dose: Not Given Sodium Chloride (Sodium Chloride 0.9%) 1,000 mls @ 60 mls/hr IV .[id number] [facility] Last Admin: 02/02/17 12:42 Dose: 60 mls/hr Insulin Human Regular (Novolin R) 0 unit SC ACHS NGU[facility] PRN Reason: Protocol Last Admin: 02/02/17 12:37 Dose: 6 unit Methylprednisolone (Solu-Medrol) 40 mg IVP Q8H [facility] Morphine Sulfate (Morphine) 1 mg IVP Q4H PRN PRN Reason: Pain, severe (8-10) [id number] Ethyl Esters (Lovaza) 1 gm PO DAILY [facility] Last Admin: 02/02/17 10:00 Dose: 1 gm Ondansetron HCl (Zofran Inj) 4 mg IVP Q6 PRN PRN Reason: Nausea/Vomiting Pantoprazole Sodium (Protonix Ec Tab) 40 mg PO DAILY [facility] Last Admin: 02/02/17 10:00 Dose: 40 mg Promethazine HCl/Dextromethorphan (Phenergan Dm Syrup) 5 ml PO Q6H PRN PRN Reason: Cough Rivaroxaban (Xarelto) 10 mg PO DAILY [facility] Last Admin: 02/01/17 10:00 Dose: 10 mg Tiotropium [place] (Spiriva) 18 mcg INH RQ24 [facility] Last Admin: 02/02/17 10:18 Dose: 18 mcg - Labs Labs: 02/02/17 06:22 02/02/17 06:22 PT 11.7 SECONDS (9.7-12.2) 01/31/17 07:49 INR 1.0 01/31/17 07:49 APTT 134 SECONDS (21-34) H* D 02/02/17 06:22 - Head Exam Head Exam: ATRAUMATIC, NORMOCEPHALIC - Eye Exam Eye Exam: Normal appearance - ENT Exam ENT Exam: Mucous Membranes Moist - Neck Exam Neck Exam: Normal Inspection - Respiratory Exam Respiratory Exam: Rhonchi, Wheezes - GI/Abdominal Exam GI & Abdominal Exam: Soft Assessment and Plan (1) COPD with exacerbation Assessment & Plan: IV steroids, nebulizer treatment Antitussives because of cough Switched to p.o. Cardizem Status: Acute
--- NOTE | 2017-02-02 13:44 | CP.PCM.PN ---
<Ellen Salguero - Last Filed: 02/02/17 13:53> Subjective - Date & Time of Evaluation Date of Evaluation: 02/02/17 Time of Evaluation: 07:00 - Subjective Subjective: PGY-[address] Lafleur Pt was sitting in bed. No acute complaint. Objective - Vital Signs/Intake and Output Vital Signs (last 24 hours): Temp Pulse Resp BP Pulse Ox 97.6 F 72 16 117/70 95 02/02/17 00:00 02/02/17 11:51 02/02/17 11:51 02/02/17 11:51 02/02/17 11:51 Intake and Output: 02/02/17 02/02/17 06:59 18:59 Intake Total 1056 168 Output Total 913 83 Balance 143 85 - Medications Medications: Current Medications Albuterol/Ipratropium (Duoneb 3 Mg/0.5 Mg (3 Ml) Ud) 3 ml INH RQ6 [facility] Last Admin: 02/02/17 07:58 Dose: 3 ml Amiodarone HCl (Cordarone) 200 mg PO DAILY [facility] Last Admin: 02/02/17 09:59 Dose: 200 mg Budesonide (Pulmicort Respules) 0.25 mg INH RQ12 [facility] Last Admin: 02/02/17 07:58 Dose: 0.25 mg Diltiazem HCl (Cardizem) 60 mg PO Q8H [facility] Last Admin: 02/02/17 10:02 Dose: 60 mg Furosemide (Lasix) 20 mg PO BID [facility] Heparin Sodium/Sodium Chloride (Heparin 46013 Units/250ml 1/2 Normal Saline) 25 ,000 units in 250 mls @ 0 mls/hr IV .Q0M PRN; Protocol; Per Protocol PRN Reason: PROTOCOL Last Titration: 02/02/17 08:07 Dose: 9 u/kg/hr, 6.042 mls/hr Diltiazem HCl 125 mg/ Dextrose 125 mls @ 7.5 mls/hr IV .[id number] NGUYỄN; 7.5 MG/HR PRN Reason: Protocol Last Admin: 02/02/17 06:00 Dose: Not Given Sodium Chloride (Sodium Chloride 0.9%) 1,000 mls @ 60 mls/hr IV .[id number] [facility] Last Admin: 02/02/17 12:42 Dose: 60 mls/hr Insulin Human Regular (Novolin R) 0 unit SC ACHS NGUYỄN PRN Reason: Protocol Last Admin: 02/02/17 12:37 Dose: 6 unit Methylprednisolone (Solu-Medrol) 40 mg IVP Q8H [facility] Morphine Sulfate (Morphine) 1 mg IVP Q4H PRN PRN Reason: Pain, severe (8-10) [id number] Ethyl Esters (Lovaza) 1 gm PO DAILY [facility] Last Admin: 02/02/17 10:00 Dose: 1 gm Ondansetron HCl (Zofran Inj) 4 mg IVP Q6 PRN PRN Reason: Nausea/Vomiting Pantoprazole Sodium (Protonix Ec Tab) 40 mg PO DAILY [facility] Last Admin: 02/02/17 10:00 Dose: 40 mg Promethazine HCl/Dextromethorphan (Phenergan Dm Syrup) 5 ml PO Q6H PRN PRN Reason: Cough Rivaroxaban (Xarelto) 10 mg PO DAILY [facility] Last Admin: 02/01/17 10:00 Dose: 10 mg Tiotropium [place] (Spiriva) 18 mcg INH RQ24 [facility] Last Admin: 02/02/17 10:18 Dose: 18 mcg - Labs Labs: 02/02/17 06:22 02/02/17 06:22 PT 11.7 SECONDS (9.7-12.2) 01/31/17 07:49 INR 1.0 01/31/17 07:49 APTT 134 SECONDS (21-34) H* D 02/02/17 06:22 - Constitutional Appears: No Acute Distress - Head Exam Head Exam: ATRAUMATIC, NORMOCEPHALIC - Eye Exam Eye Exam: EOMI, Normal appearance - ENT Exam ENT Exam: Mucous Membranes Moist - Neck Exam Neck Exam: absent: Thyromegaly Additional comments: No carotid bruits - Respiratory Exam Respiratory Exam: Rhonchi, Wheezes. absent: Rales - Cardiovascular Exam Cardiovascular Exam: REGULAR RHYTHM, +S1, +S2. absent: Murmur - GI/Abdominal Exam GI & Abdominal Exam: Soft, Normal Bowel Sounds. absent: Rigid, Tenderness - Extremities Exam Extremities Exam: Normal Capillary Refill. absent: Calf Tenderness, Pedal Edema - Back Exam Back Exam: absent: CVA tenderness (L), CVA tenderness (R) - Neurological Exam Neurological Exam: Alert, Awake, Oriented x3 - Psychiatric Exam Psychiatric exam: Normal Affect, Normal Mood - Skin Skin Exam: Dry, Warm Assessment and Plan - Assessment and Plan (Free Text) Plan: 81 M with PMH of paroxysmal afib on Eliquis, DM2, COPD/ex-smoker of 50pack-yr, Hyperlipidemia, CKD 3, Abdominal Aortic Aneurysm with Stent, presents to the ED for complaint of SOB and COPD exacernation. CP was 2 months ago and pt could not articulate events leading to CP. SOB most likely from severe pulm HTN shown on echocardiogram. Pt has a Right hydronephrosis (01/30) due to right iliac anuerism. Pt is s/p [employer] for rapid a-fib that turned wide complex tachycardia while on cardizem gtt. VSS. Pt AAOx3, NAD. Cardiac cath cancelled today for wheezing. Should contiune heparin gtt. A-fib RVR, wide-complex tachycardia - resolved QT prolong - Cardizem gtt taper to PO - Start amiodarone 200 daily; cardizem 60 q8 - resume heparin gtt - consulted Dr. Rice for elective catherter ablation - (+) wheezes, not a good candidate for stress test - CANDACE negative x 3 Hx CAD - EKG: Sinus tachy 114. SVC. RBBB. Q waves in inferior leads. 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 Lafleur <Maxi Lafleur - Last Filed: 02/03/17 06:03> Objective - Vital Signs/Intake and Output Vital Signs (last 24 hours): Temp Pulse Resp BP Pulse Ox 98.2 F 68 17 123/79 93 L 02/02/17 20:00 02/03/17 05:20 02/03/17 05:20 02/03/17 04:39 02/03/17 05:20 Intake and Output: 02/02/17 02/03/17 18:59 06:59 Intake Total 1734 60 Output Total 483 Balance 1251 60 - Medications Medications: Current Medications Albuterol/Ipratropium (Duoneb 3 Mg/0.5 Mg (3 Ml) Ud) 3 ml INH RQ6 [facility] Last Admin: 02/03/17 01:24 Dose: 3 ml Amiodarone HCl (Cordarone) 200 mg PO DAILY [facility] Last Admin: 02/02/17 09:59 Dose: 200 mg Budesonide (Pulmicort Respules) 0.25 mg INH RQ12 [facility] Last Admin: 02/02/17 19:37 Dose: 0.25 mg Diltiazem HCl (Cardizem) 60 mg PO Q8H [facility] Last Admin: 02/03/17 01:12 Dose: 60 mg Furosemide (Lasix) 20 mg PO BID [facility] Last Admin: 02/02/17 18:08 Dose: 20 mg Heparin Sodium/Sodium Chloride (Heparin 48929 Units/250ml 1/2 Normal Saline) 25 ,000 units in 250 mls @ 0 mls/hr IV .Q0M PRN; Protocol; Per Protocol PRN Reason: PROTOCOL Last Admin: 02/02/17 17:41 Dose: 9 u/kg/hr, 6.042 mls/hr Diltiazem HCl 125 mg/ Dextrose 125 mls @ 7.5 mls/hr IV .[id number] NGUYỄN; 7.5 MG/HR PRN Reason: Protocol Last Admin: 02/02/17 23:00 Dose: Not Given Insulin Human Regular (Novolin R) 0 unit SC ACHS [facility] PRN Reason: Protocol Last Admin: 02/02/17 22:00 Dose: Not Given Methylprednisolone (Solu-Medrol) 40 mg IVP Q8H [facility] Last Admin: 02/03/17 01:12 Dose: 40 mg Morphine Sulfate (Morphine) 1 mg IVP Q4H PRN PRN Reason: Pain, severe (8-10) [id number] Ethyl Esters (Lovaza) 1 gm PO DAILY [facility] Last Admin: 02/02/17 10:00 Dose: 1 gm Ondansetron HCl (Zofran Inj) 4 mg IVP Q6 PRN PRN Reason: Nausea/Vomiting Pantoprazole Sodium (Protonix Ec Tab) 40 mg PO DAILY [facility] Last Admin: 02/02/17 10:00 Dose: 40 mg Promethazine HCl/Dextromethorphan (Phenergan Dm Syrup) 5 ml PO Q6H PRN PRN Reason: Cough Last Admin: 02/03/17 00:00 Dose: 5 ml Rivaroxaban (Xarelto) 10 mg PO DAILY [facility] Last Admin: 02/01/17 10:00 Dose: 10 mg Tiotropium [place] (Spiriva) 18 mcg INH RQ24 [facility] Last Admin: 02/02/17 10:18 Dose: 18 mcg - Labs Labs: 02/02/17 06:22 02/02/17 06:22 PT 11.7 SECONDS (9.7-12.2) 01/31/17 07:49 INR 1.0 01/31/17 07:49 APTT 65 SECONDS (21-34) H 02/03/17 05:21 Assessment and Plan - Assessment and Plan (Free Text) Assessment: Patient seen and evaluated with the medical field representative Agree with the management plan
[2017-02-02] MEDS: Promethazine DM 6.25 mg-15 mg/5 ml Syrup PO PRN (17:12)
[2017-02-02] MEDS: MethylPREDNISolone 40 mg Vial IVP SCH (17:13)
[2017-02-02] MEDS: Heparin25000 units/250ml 1/2NS 25,000 UNITS/250 ML BAG IV PRN (17:41)
--- NOTE | 2017-02-02 19:25 | PN ---
DATE: 02/02/2017 NEPHROLOGY FOLLOWUP NOTE HISTORY OF PRESENT ILLNESS: An 81-year-old male with past medical history of diabetes, COPD, hyperli pidemia, abdominal aortic aneurysm status post repair, paroxysmal atrial fibrillation and CKD. Admit inge with COPD exacerbation. Nephrology following for acute renal failure. The patient more short of breath today with wheezing that prevented cardiac catheterization from bein g done. PHYSICAL EXAMINATION: VITAL SIGNS: This afternoon, blood pressure 118/72, heart rate 68, respirations 21, temperature 98.0 , O2 sat 96% on nasal cannula oxygen. GENERAL: No distress, able to converse coherently in full sentences. HEENT: Moist mucous membranes. Nonicteric. NECK: Elevated JVD. RESPIRATORY: Diffuse bilateral expiratory wheezes with prolonged expiratory phase. CARDIOVASCULAR: Muffled heart sounds. No obvious murmur or gallop. ABDOMEN: Soft, nondistended. EXTREMITIES: Mild bilateral lower leg edema. SKIN: Warm. No cyanosis. PSYCHIATRIC: Normal mood, normal affect. LABORATORY DATA: Today, CBC: WBC 10.4, hemoglobin 9.9, hematocrit 30.3, platelets 114. Chemistry p eze: Sodium 136, potassium 4.0, chloride 98, bicarbonate 28, BUN 31, creatinine 1.4, glucose 170, c alcium 7.6, phosphorus 2.2, magnesium 1.5, albumin 3.4. ASSESSMENT: 1. Acute renal failure, acute kidney injury on chronic kidney disease stage IIIA, prerenal etiology with renal function improving after holding diuretics. Mild increase in serum creatinine after recei ving dye study 2 days ago, but decreased again today. The patient was being administered isotonic sa line in preparation for cardiac catheterization to avoid contrast-induced nephropathy; however, brenda terization postponed until likely Sunday. Therefore, we will hold IV fluids for now and will prep pa tient again for catheterization on Sunday. 2. 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 As mentioned above, the patient needs to be kept vo lume replete prior to any IV dye study. 3. Hypertension. The patient currently on p.o. Cardizem for atrial fibrillation. Beta blockers hel d due to chronic obstructive pulmonary disease symptoms worsening, currently normotensive. The patie nt was previously on low dose Lasix 40 mg p.o. once a day. Has some lower extremity edema with echo reporting severe pulmonary hypertension. Therefore, we will restart Lasix at 20 mg p.o. b.i.d. 4. Atopic right kidney. The patient may still have some residual function of the atrophic kidney. Renal Lasix scan would give more information. 5. Electrolyte imbalances. Mild hypomagnesemia and hypophosphatemia. Replenished via IV. Continue to monitor, especially after Lasix restarted. Dante Duran MD cc: [id number] TT: 02/02/2017 19:25:06 Confirmation # [id number] Dictation # [id number]
[2017-02-02] MEDS ORDERED: MethylPREDNISolone 40 mg Vial IVP SCH (22:00)
[2017-02-03] MEDS: MethylPREDNISolone 40 mg Vial IVP SCH ×3 (01:12→18:00)
[2017-02-03] MEDS: Albuterol-Ipratrop 3 mg / 0.5 (3 ml) UD INH SCH ×5 (01:24→19:35)
[2017-02-03 06:38] LABS: HEMATOCRIT 28.6 % (35.0-51.0); LYMPH # 0.2 K/uL (1.0-4.3); LYMPH % 2.1 % (20.0-40.0); MEAN CELL VOLUME 88.9 fL (80.0-94.0); MEAN CORPUSCULAR HGB CONC 32.7 g/dL (33.0-37.0); MEAN PLATELET VOLUME 9.7 fL (7.2-11.7); MONO # 0.3 K/uL (0.0-0.8); MONO % 3.5 % (0.0-10.0); NRBC % 0.1 % (0.0-2.0); PLATELET COUNT 118 K/uL (130-400); RED CELL DISTRIBUTION WIDTH 15.5 % (11.5-14.5); WHITE BLOOD COUNT 7.7 K/uL (4.8-10.8)
[2017-02-03 06:47] LABS: POTASSIUM 4.2 mmol/L (3.6-5.2)
[2017-02-03 06:49] LABS: ALB/GLOB RATIO 1.2 (1.0-2.1); BILIRUBIN,TOTAL 0.8 mg/dL (0.2-1.3)
[2017-02-03 06:50] LABS: CALCIUM 7.3 mg/dl (8.6-10.4); MAGNESIUM 2.2 mg/dL (1.6-2.3)
[2017-02-03] MEDS: Tiotropium 18 mcg Cap For Inhalation INH SCH (07:32)
[2017-02-03] MEDS: Budesonide 0.25 mg/2 ml Inhal Susp UD INH SCH ×2 (07:32→19:35)
--- NOTE | 2017-02-03 07:54 | CP.PCM.PN ---
Subjective - Date & Time of Evaluation Date of Evaluation: 02/03/17 Time of Evaluation: 07:30 - Subjective Subjective: PGY1 Medicine note for Dr. Lomax Patient seen and examined at bedside. Patient transferred to [facility] this AM. He continues to complain of cough and feeling like there is a lot of phlegm in him. Patient denies any hemoptysis. Denies any fever, chills, chest pain, palpitations, SOB, abdominal pain, nausea, vomiting, bowel/bladder complaints. Patient has been NSR with frequent PACs especially when he is coughing. Objective - Vital Signs/Intake and Output Vital Signs (last 24 hours): Temp Pulse Resp BP Pulse Ox 98.2 F 109 H 15 115/80 96 02/03/17 04:00 02/03/17 07:20 02/03/17 07:20 02/03/17 07:16 02/03/17 07:20 Intake and Output: 02/03/17 02/03/17 06:59 18:59 Intake Total 66 6 Output Total 850 Balance 66 -844 - Medications Medications: Current Medications Albuterol/Ipratropium (Duoneb 3 Mg/0.5 Mg (3 Ml) Ud) 3 ml INH RQ6 [facility] Last Admin: 02/03/17 07:32 Dose: 3 ml Amiodarone HCl (Cordarone) 200 mg PO DAILY [facility] Last Admin: 02/02/17 09:59 Dose: 200 mg Budesonide (Pulmicort Respules) 0.25 mg INH RQ12 [facility] Last Admin: 02/03/17 07:32 Dose: 0.25 mg Diltiazem HCl (Cardizem) 60 mg PO Q8H [facility] Last Admin: 02/03/17 01:12 Dose: 60 mg Furosemide (Lasix) 20 mg PO BID [facility] Last Admin: 02/02/17 18:08 Dose: 20 mg Heparin Sodium/Sodium Chloride (Heparin 76278 Units/250ml 1/2 Normal Saline) 25 ,000 units in 250 mls @ 0 mls/hr IV .Q0M PRN; Protocol; Per Protocol PRN Reason: PROTOCOL Last Admin: 02/02/17 17:41 Dose: 9 u/kg/hr, 6.042 mls/hr Diltiazem HCl 125 mg/ Dextrose 125 mls @ 7.5 mls/hr IV .[id number] [facility]; 7.5 MG/HR PRN Reason: Protocol Last Admin: 02/02/17 23:00 Dose: Not Given Insulin Human Regular (Novolin R) 0 unit SC ACHS [facility] PRN Reason: Protocol Last Admin: 02/02/17 22:00 Dose: Not Given Methylprednisolone (Solu-Medrol) 40 mg IVP Q8H [facility] Last Admin: 02/03/17 01:12 Dose: 40 mg Morphine Sulfate (Morphine) 1 mg IVP Q4H PRN PRN Reason: Pain, severe (8-10) [id number] Ethyl Esters (Lovaza) 1 gm PO DAILY [facility] Last Admin: 02/02/17 10:00 Dose: 1 gm Ondansetron HCl (Zofran Inj) 4 mg IVP Q6 PRN PRN Reason: Nausea/Vomiting Pantoprazole Sodium (Protonix Ec Tab) 40 mg PO DAILY [facility] Last Admin: 02/02/17 10:00 Dose: 40 mg Promethazine HCl/Dextromethorphan (Phenergan Dm Syrup) 5 ml PO Q6H PRN PRN Reason: Cough Last Admin: 02/03/17 00:00 Dose: 5 ml Rivaroxaban (Xarelto) 10 mg PO DAILY [facility] Last Admin: 02/01/17 10:00 Dose: 10 mg Tiotropium [place] (Spiriva) 18 mcg INH RQ24 [facility] Last Admin: 02/03/17 07:32 Dose: 18 mcg - Labs Labs: 02/03/17 06:31 02/03/17 06:31 PT 11.7 SECONDS (9.7-12.2) 01/31/17 07:49 INR 1.0 01/31/17 07:49 APTT 65 SECONDS (21-34) H 02/03/17 05:21 - Constitutional Appears: Non-toxic, No Acute Distress, Chronically Ill - Head Exam Head Exam: ATRAUMATIC, NORMAL INSPECTION, NORMOCEPHALIC - Eye Exam Eye Exam: EOMI, Normal appearance. absent: Conjunctival injection, Scleral icterus - ENT Exam ENT Exam: Mucous Membranes Moist - Neck Exam Neck Exam: Full ROM, Normal Inspection - Respiratory Exam Respiratory Exam: Rhonchi, Wheezes, NORMAL BREATHING PATTERN. absent: Accessory Muscle Use, Clear to Ausculation Bilateral, Rales, Respiratory Distress - Cardiovascular Exam Cardiovascular Exam: Irregular Rhythm, +S1, +S2. absent: Bradycardia, Tachycardia - GI/Abdominal Exam GI & Abdominal Exam: Soft, Normal Bowel Sounds. absent: Firm, Guarding, Rigid, Tenderness - Extremities Exam Extremities Exam: Normal Capillary Refill, Normal Inspection. absent: Pedal Edema, Tenderness - Back Exam Back Exam: NORMAL INSPECTION. absent: rash noted - Neurological Exam Neurological Exam: Alert, Awake, Oriented x3 - Psychiatric Exam Psychiatric exam: Normal Affect, Normal Mood - Skin Skin Exam: Dry, Intact, Normal Color, Warm Assessment and Plan - Assessment and Plan (Free Text) Assessment: 81 M with PMH of Dm, COPD, Hyperlipidemia, Abdominal Aortic Aneurysm with Stent , history of paroxysmal afib, presented with SOB and chest pain Plan: Afib with RVR, wide complex tachycardia Resolved Patient was on cardizem gtt in ICU which has been switched to PO Cardizem 60mg po q6 Amiodarone 200mg po daily Heparin gtt Dr. Rice on board for elective ablation CANDACE negative x 3 COPD exacerbation with underlying cor pulmonale D dimer 3507 BNP 2560 Troponin negative x 3 CXR: mild venous congestion; R hilar prominence and L central venous catheter; R paratracheal airspace opacity likely represents prominent vasculature. Small nodular denisty at the right lung base. V/Q scan low probability for PE Morphine 1 mg IVP Q4H PRN Zofran 4 mg IVP Q6H PRN Lasix 20mg IVP BID ECHO: LV mildly dilated. mild to mod concentric LVH. EF > 55%. L atrium mod dilated. RV systolic pressure estimated at 50-60mmHg. Severe pulmonary HTN. lipid panel WNL TSH/T4 WNL O2 via MS Cardio consult, Dr. Lafleur, help appreciated Pulm consult, Dr. Hou, help appreciated. Hx CAD Cath next week as per Dr. Lafleur Lovaza 1gm po daily Consider ASA and high dose statin COPD Pulm consult, Dr. Hou, help appreciated Solumedrol 40mg IVP q8H Pulmicort 0.25mg INH Q12 Spiriva 18mcg INH Q24 Duoneb 3ml inh RQ6H Acetylcysteine 4ml inh q6 blood culture prelim negative B/l common iliac A aneurysm CT Abd/pelvis w/o contrast: obstructive hydronephrosis on R secondary to markedly enlarged R common iliac A aneurysm measuring up to 8.2cm. Additionally 5cm L common iliac A anurysm. Relatively stable infrarenal abdominal aortic aneurysm Dr. 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 Duran on board Urology Dr. Fernando on board Renal US: severe unilateral R sided hydronephrosis. large R lower quadrant and pelvic mass likely related to findings. Monitor BUN/Cr HTN Cardizem 60mg po q8h Lasix 20mg po bid Diabetes mellitus ISS Accuchecks ACHS Prophylactic measure SCDs Protonix 40 mg PO daily Morphine 1mg IVP Q4 prn pain severe Zofran 4mg IVP Q6 PRN nausea/vomiting Heart healthy diet Dispo: patient transferred to [facility] Will discuss with Dr. Monie Laws PGY1
[2017-02-03] MEDS: (Novolin R) Insulin Human Regular 100 units/ml vial SC SCH ×4 (08:43→22:00)
[2017-02-03] MEDS: Promethazine DM 6.25 mg-15 mg/5 ml Syrup PO PRN ×4 (10:18→23:00)
[2017-02-03] MEDS: Pantoprazole 40 mg EC Tab PO SCH (10:18)
[2017-02-03] MEDS: Omega-3-Acid Ethyl Esters 1 GM Cap PO SCH (10:19)
--- NOTE | 2017-02-03 10:30 | CP.PCM.PN ---
Subjective - Date & Time of Evaluation Date of Evaluation: 02/03/17 Time of Evaluation: 07:00 - Subjective Subjective: VASCULAR SURGERY PROGRESS NOTE FOR DR. BEAN AND DR. DIAZ Patient seen and examined at bedside in the ICU. Per the nurse, he is off Cardizem drip and now just PO cardizem. Per cardiology note, patient going for cath next week. Patient denies pain. Tolerating diet. Objective - Vital Signs/Intake and Output Vital Signs (last 24 hours): Temp Pulse Resp BP Pulse Ox 97.4 F L 80 22 117/66 95 02/03/17 08:00 02/03/17 08:00 02/03/17 08:00 02/03/17 10:19 02/03/17 08:00 Intake and Output: 02/03/17 02/03/17 06:59 18:59 Intake Total 66 258 Output Total 1250 Balance 66 -992 - Medications Medications: Current Medications Albuterol/Ipratropium (Duoneb 3 Mg/0.5 Mg (3 Ml) Ud) 3 ml INH RQ6 [facility] Last Admin: 02/03/17 07:32 Dose: 3 ml Amiodarone HCl (Cordarone) 200 mg PO DAILY [facility] Last Admin: 02/03/17 10:19 Dose: 200 mg Budesonide (Pulmicort Respules) 0.25 mg INH RQ12 [facility] Last Admin: 02/03/17 07:32 Dose: 0.25 mg Diltiazem HCl (Cardizem) 60 mg PO Q8H [facility] Last Admin: 02/03/17 10:19 Dose: 60 mg Furosemide (Lasix) 20 mg PO BID [facility] Last Admin: 02/03/17 10:19 Dose: 20 mg Heparin Sodium/Sodium Chloride (Heparin 90385 Units/250ml 1/2 Normal Saline) 25 ,000 units in 250 mls @ 0 mls/hr IV .Q0M PRN; Protocol; Per Protocol PRN Reason: PROTOCOL Last Admin: 02/02/17 17:41 Dose: 9 u/kg/hr, 6.042 mls/hr Diltiazem HCl 125 mg/ Dextrose 125 mls @ 7.5 mls/hr IV .[id number] [facility]; 7.5 MG/HR PRN Reason: Protocol Last Admin: 02/02/17 23:00 Dose: Not Given Insulin Human Regular (Novolin R) 0 unit SC ACHS [facility] PRN Reason: Protocol Last Admin: 02/03/17 08:43 Dose: 3 unit Methylprednisolone (Solu-Medrol) 40 mg IVP Q8H [facility] Last Admin: 02/03/17 10:18 Dose: 40 mg Morphine Sulfate (Morphine) 1 mg IVP Q4H PRN PRN Reason: Pain, severe (8-10) [id number] Ethyl Esters (Lovaza) 1 gm PO DAILY [facility] Last Admin: 02/03/17 10:19 Dose: 1 gm Ondansetron HCl (Zofran Inj) 4 mg IVP Q6 PRN PRN Reason: Nausea/Vomiting Pantoprazole Sodium (Protonix Ec Tab) 40 mg PO DAILY [facility] Last Admin: 02/03/17 10:18 Dose: 40 mg Promethazine HCl/Dextromethorphan (Phenergan Dm Syrup) 5 ml PO Q6H PRN PRN Reason: Cough Last Admin: 02/03/17 10:18 Dose: 5 ml Rivaroxaban (Xarelto) 10 mg PO DAILY [facility] Last Admin: 02/01/17 10:00 Dose: 10 mg Tiotropium [place] (Spiriva) 18 mcg INH RQ24 [facility] Last Admin: 02/03/17 07:32 Dose: 18 mcg - Labs Labs: 02/03/17 06:31 02/03/17 06:31 PT 11.7 SECONDS (9.7-12.2) 01/31/17 07:49 INR 1.0 01/31/17 07:49 APTT 65 SECONDS (21-34) H 02/03/17 05:21 - Constitutional Appears: Non-toxic, No Acute Distress - Eye Exam Eye Exam: EOMI, Normal appearance - Respiratory Exam Respiratory Exam: NORMAL BREATHING PATTERN. absent: Respiratory Distress - Cardiovascular Exam Cardiovascular Exam: +S1, +S2. absent: Tachycardia - Extremities Exam Extremities Exam: Normal Inspection Additional comments: Bilat feet warm to touch Assessment and Plan - Assessment and Plan (Free Text) Assessment: 81yo M with iliac aneurysm s/p bypass graft with evidence of retrograde flow - Afebrile, VSS - Possible plan for angio Wednesday 02/07 in attempt for endovascular embolization of back flow into iliac aneurysm however Dr. Bean and Dr. Diaz to discuss best approach - Continue medical management - If patient goes for cardiac cath, do not recommend access via either groin - Discussed plan with Dr. Bean and Dr. Emily Peres PGY-2
[2017-02-03 10:59] LABS: NEUTROPHIL 90 % (50-75); TOTAL CELLS COUNTED 100
[2017-02-03] MEDS: Acetylcysteine 20% Inhal Soln (4ml) INH SCH (16:50)
[2017-02-03] MEDS: Scopolamine 1.5 mg/24 hr Patch TD SCH (17:58)
--- NOTE | 2017-02-03 18:23 | CP.PCM.PN ---
Subjective - Date & Time of Evaluation Date of Evaluation: 02/03/17 Time of Evaluation: 17:00 - Subjective Subjective: Patient reporting sob intermittently; Objective - Vital Signs/Intake and Output Vital Signs (last 24 hours): Temp Pulse Resp BP Pulse Ox 98.1 F 104 H 16 99/73 L 94 L 02/03/17 16:00 02/03/17 16:06 02/03/17 16:06 02/03/17 17:37 02/03/17 16:06 Intake and Output: 02/03/17 02/03/17 06:59 18:59 Intake Total 66 666 Output Total 1550 Balance 66 -884 - Medications Medications: Current Medications Acetylcysteine (Acetylcysteine 20%) 4 ml INH RQ6 [facility] Last Admin: 02/03/17 16:50 Dose: 4 ml Albuterol/Ipratropium (Duoneb 3 Mg/0.5 Mg (3 Ml) Ud) 3 ml INH RQ6 [facility] Last Admin: 02/03/17 16:50 Dose: 3 ml Amiodarone HCl (Cordarone) 200 mg PO DAILY [facility] Last Admin: 02/03/17 10:19 Dose: 200 mg Budesonide (Pulmicort Respules) 0.25 mg INH RQ12 [facility] Last Admin: 02/03/17 07:32 Dose: 0.25 mg Diltiazem HCl (Cardizem) 30 mg PO Q8H [facility] Last Admin: 02/03/17 17:37 Dose: 30 mg Furosemide (Lasix) 20 mg PO BID [facility] Last Admin: 02/03/17 17:37 Dose: 20 mg Heparin Sodium/Sodium Chloride (Heparin 07842 Units/250ml 1/2 Normal Saline) 25 ,000 units in 250 mls @ 0 mls/hr IV .Q0M PRN; Protocol; Per Protocol PRN Reason: PROTOCOL Last Admin: 02/02/17 17:41 Dose: 9 u/kg/hr, 6.042 mls/hr Diltiazem HCl 125 mg/ Sodium (Chloride) 125 mls @ 5 mls/hr IV .Q24H [facility]; 5 MG/ HR PRN Reason: Protocol Last Admin: 02/03/17 18:15 Dose: 5 mg/hr, 5 mls/hr Insulin Human Regular (Novolin R) 0 unit SC ACHS [facility] PRN Reason: Protocol Last Admin: 02/03/17 16:39 Dose: 6 unit Methylprednisolone (Solu-Medrol) 40 mg IVP Q8H [facility] Last Admin: 02/03/17 10:18 Dose: 40 mg Vbaua-8-Anij Ethyl Esters (Lovaza) 1 gm PO DAILY [facility] Last Admin: 02/03/17 10:19 Dose: 1 gm Ondansetron HCl (Zofran Inj) 4 mg IVP Q6 PRN PRN Reason: Nausea/Vomiting Pantoprazole Sodium (Protonix Ec Tab) 40 mg PO DAILY [facility] Last Admin: 02/03/17 10:18 Dose: 40 mg Promethazine HCl/Dextromethorphan (Phenergan Dm Syrup) 5 ml PO Q6H PRN PRN Reason: Cough Last Admin: 02/03/17 16:54 Dose: 5 ml Rivaroxaban (Xarelto) 10 mg PO DAILY [facility] Last Admin: 02/01/17 10:00 Dose: 10 mg Scopolamine (Transderm-Scop) 1 patch TD Q3D [facility] Last Admin: 02/03/17 17:58 Dose: 1 patch Tiotropium [place] (Spiriva) 18 mcg INH RQ24 [facility] Last Admin: 02/03/17 07:32 Dose: 18 mcg - Labs Labs: 02/03/17 06:31 02/03/17 06:31 PT 11.7 SECONDS (9.7-12.2) 01/31/17 07:49 INR 1.0 01/31/17 07:49 APTT 65 SECONDS (21-34) H 02/03/17 05:21 - Constitutional Appears: Well, No Acute Distress - Head Exam Head Exam: NORMAL INSPECTION - Eye Exam Eye Exam: Normal appearance. absent: Scleral icterus - ENT Exam ENT Exam: Mucous Membranes Moist - Respiratory Exam Respiratory Exam: Prolonged Expiratory Phase - Cardiovascular Exam Additional comments: muffled heart sounds; - GI/Abdominal Exam GI & Abdominal Exam: Soft. absent: Distended, Tenderness - Extremities Exam Extremities Exam: Normal Capillary Refill Additional comments: Mild L lower leg edema; - Neurological Exam Neurological Exam: Alert, Awake - Psychiatric Exam Psychiatric exam: Normal Affect, Normal Mood - Skin Skin Exam: Normal Color, Warm. 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
[2017-02-04] MEDS: Acetylcysteine 20% Inhal Soln (4ml) INH SCH ×4 (01:26→19:41)
[2017-02-04] MEDS: Albuterol-Ipratrop 3 mg / 0.5 (3 ml) UD INH SCH ×4 (01:26→19:41)
[2017-02-04] MEDS: MethylPREDNISolone 40 mg Vial IVP SCH ×3 (01:35→22:00)
--- NOTE | 2017-02-04 04:18 | CP.PCM.PN ---
Subjective - Date & Time of Evaluation Date of Evaluation: 02/03/17 Time of Evaluation: 10:00 - Subjective Subjective: Patient with A Fib on cardizem drip Rate and rhythm mgt as per Dr. Rice Objective - Vital Signs/Intake and Output Vital Signs (last 24 hours): Temp Pulse Resp BP Pulse Ox 98.1 F 95 H 17 109/60 92 L 02/03/17 16:00 02/03/17 21:29 02/03/17 21:29 02/03/17 21:29 02/03/17 21:29 Intake and Output: 02/03/17 02/04/17 18:59 06:59 Intake Total 926 Output Total 1550 Balance -624 - Medications Medications: Current Medications Acetylcysteine (Acetylcysteine 20%) 4 ml INH RQ6 [facility] Last Admin: 02/04/17 01:26 Dose: 4 ml Albuterol/Ipratropium (Duoneb 3 Mg/0.5 Mg (3 Ml) Ud) 3 ml INH RQ6 [facility] Last Admin: 02/04/17 01:26 Dose: 3 ml Amiodarone HCl (Cordarone) 200 mg PO DAILY [facility] Last Admin: 02/03/17 10:19 Dose: 200 mg Budesonide (Pulmicort Respules) 0.25 mg INH RQ12 [facility] Last Admin: 02/03/17 19:35 Dose: 0.25 mg Diltiazem HCl (Cardizem) 30 mg PO Q8H [facility] Last Admin: 02/03/17 17:37 Dose: 30 mg Furosemide (Lasix) 20 mg PO BID [facility] Last Admin: 02/03/17 17:37 Dose: 20 mg Heparin Sodium/Sodium Chloride (Heparin 99629 Units/250ml 1/2 Normal Saline) 25 ,000 units in 250 mls @ 0 mls/hr IV .Q0M PRN; Protocol; Per Protocol PRN Reason: PROTOCOL Last Admin: 02/02/17 17:41 Dose: 9 u/kg/hr, 6.042 mls/hr Diltiazem HCl 125 mg/ Sodium (Chloride) 125 mls @ 5 mls/hr IV .Q24H [facility]; 5 MG/ HR PRN Reason: Protocol Last Titration: 02/03/17 18:51 Dose: 10 mg/hr, 10 mls/hr Insulin Human Regular (Novolin R) 0 unit SC ACHS [facility] PRN Reason: Protocol Last Admin: 02/03/17 16:39 Dose: 6 unit Methylprednisolone (Solu-Medrol) 40 mg IVP Q8H [facility] Last Admin: 02/03/17 18:00 Dose: 40 mg Oblnl-2-Dibj Ethyl Esters (Lovaza) 1 gm PO DAILY [facility] Last Admin: 02/03/17 10:19 Dose: 1 gm Ondansetron HCl (Zofran Inj) 4 mg IVP Q6 PRN PRN Reason: Nausea/Vomiting Pantoprazole Sodium (Protonix Ec Tab) 40 mg PO DAILY [facility] Last Admin: 02/03/17 10:18 Dose: 40 mg Promethazine HCl/Dextromethorphan (Phenergan Dm Syrup) 5 ml PO Q6H PRN PRN Reason: Cough Last Admin: 02/03/17 16:54 Dose: 5 ml Rivaroxaban (Xarelto) 10 mg PO DAILY [facility] Last Admin: 02/01/17 10:00 Dose: 10 mg Scopolamine (Transderm-Scop) 1 patch TD Q3D [facility] Last Admin: 02/03/17 17:58 Dose: 1 patch Tiotropium [place] (Spiriva) 18 mcg INH RQ24 [facility] Last Admin: 02/03/17 07:32 Dose: 18 mcg - Labs Labs: 02/03/17 06:31 02/03/17 06:31 PT 11.7 SECONDS (9.7-12.2) 01/31/17 07:49 INR 1.0 01/31/17 07:49 APTT 65 SECONDS (21-34) H 02/03/17 05:21
[2017-02-04] MEDS: Promethazine DM 6.25 mg-15 mg/5 ml Syrup PO PRN ×3 (05:00→23:30)
[2017-02-04 06:32] LABS: BASO % 0.1 % (0.0-2.0); HEMATOCRIT 29.6 % (35.0-51.0); LYMPH # 0.3 K/uL (1.0-4.3); LYMPH % 2.6 % (20.0-40.0); MEAN CORPUSCULAR HEMOGLOBIN 29.1 pg (27.0-31.0); MEAN CORPUSCULAR HGB CONC 32.7 g/dL (33.0-37.0); MONO # 0.4 K/uL (0.0-0.8); MONO % 3.9 % (0.0-10.0); NRBC % 0.4 % (0.0-2.0); PLATELET COUNT 143 K/uL (130-400); RED CELL DISTRIBUTION WIDTH 15.8 % (11.5-14.5); WHITE BLOOD COUNT 10.4 K/uL (4.8-10.8)
[2017-02-04 06:37] LABS: ALB/GLOB RATIO 1.2 (1.0-2.1); BILIRUBIN,TOTAL 0.9 mg/dL (0.2-1.3); TOTAL PROTEIN 5.9 g/dL (6.3-8.3)
[2017-02-04 06:38] LABS: CALCIUM 7.6 mg/dl (8.6-10.4); MAGNESIUM 1.9 mg/dL (1.6-2.3); PHOSPHOROUS 3.1 mg/dL (2.5-4.5)
--- NOTE | 2017-02-04 06:58 | CP.PCM.PN ---
Subjective - Date & Time of Evaluation Date of Evaluation: 02/04/17 Time of Evaluation: 06:57 Objective - Vital Signs/Intake and Output Vital Signs (last 24 hours): Temp Pulse Resp BP Pulse Ox 98.2 F 91 H 14 96/60 L 93 L 02/04/17 04:00 02/04/17 05:43 02/04/17 05:43 02/04/17 05:43 02/04/17 05:28 Intake and Output: 02/03/17 02/04/17 18:59 06:59 Intake Total 926 176 Output Total 1550 750 Balance -624 -574 - Medications Medications: Current Medications Acetylcysteine (Acetylcysteine 20%) 4 ml INH RQ6 [facility] Last Admin: 02/04/17 01:26 Dose: 4 ml Albuterol/Ipratropium (Duoneb 3 Mg/0.5 Mg (3 Ml) Ud) 3 ml INH RQ6 [facility] Last Admin: 02/04/17 01:26 Dose: 3 ml Amiodarone HCl (Cordarone) 200 mg PO DAILY [facility] Last Admin: 02/03/17 10:19 Dose: 200 mg Budesonide (Pulmicort Respules) 0.25 mg INH RQ12 [facility] Last Admin: 02/03/17 19:35 Dose: 0.25 mg Diltiazem HCl (Cardizem) 30 mg PO Q8H [facility] Last Admin: 02/04/17 00:45 Dose: 30 mg Furosemide (Lasix) 20 mg PO BID [facility] Last Admin: 02/03/17 17:37 Dose: 20 mg Heparin Sodium/Sodium Chloride (Heparin 13305 Units/250ml 1/2 Normal Saline) 25 ,000 units in 250 mls @ 0 mls/hr IV .Q0M PRN; Protocol; Per Protocol PRN Reason: PROTOCOL Last Admin: 02/02/17 17:41 Dose: 9 u/kg/hr, 6.042 mls/hr Diltiazem HCl 125 mg/ Sodium (Chloride) 125 mls @ 5 mls/hr IV .Q24H PRN; 5 MG/ HR PRN Reason: Protocol Last Admin: 02/04/17 05:38 Dose: 10 mg/hr, 10 mls/hr Insulin Human Regular (Novolin R) 0 unit SC ACHS [facility] PRN Reason: Protocol Last Admin: 02/03/17 22:00 Dose: Not Given Methylprednisolone (Solu-Medrol) 40 mg IVP Q8H [facility] Last Admin: 02/04/17 01:35 Dose: 40 mg Dhsjc-1-Qtma Ethyl Esters (Lovaza) 1 gm PO DAILY [facility] Last Admin: 02/03/17 10:19 Dose: 1 gm Ondansetron HCl (Zofran Inj) 4 mg IVP Q6 PRN PRN Reason: Nausea/Vomiting Pantoprazole Sodium (Protonix Ec Tab) 40 mg PO DAILY [facility] Last Admin: 02/03/17 10:18 Dose: 40 mg Promethazine HCl/Dextromethorphan (Phenergan Dm Syrup) 5 ml PO Q6H PRN PRN Reason: Cough Last Admin: 02/04/17 05:00 Dose: 5 ml Rivaroxaban (Xarelto) 10 mg PO DAILY [facility] Last Admin: 02/01/17 10:00 Dose: 10 mg Scopolamine (Transderm-Scop) 1 patch TD Q3D [facility] Last Admin: 02/03/17 17:58 Dose: 1 patch Tiotropium [place] (Spiriva) 18 mcg INH RQ24 [facility] Last Admin: 02/03/17 07:32 Dose: 18 mcg - Labs Labs: 02/04/17 06:21 02/04/17 06:21 PT 11.7 SECONDS (9.7-12.2) 01/31/17 07:49 INR 1.0 01/31/17 07:49 APTT 69 SECONDS (21-34) H 02/04/17 06:21
[2017-02-04] MEDS: Budesonide 0.25 mg/2 ml Inhal Susp UD INH SCH ×2 (07:30→19:41)
[2017-02-04] MEDS: Tiotropium 18 mcg Cap For Inhalation INH SCH (07:30)
[2017-02-04] MEDS: (Novolin R) Insulin Human Regular 100 units/ml vial SC SCH ×4 (07:43→22:47)
--- NOTE | 2017-02-04 07:43 | CP.PCM.PN ---
<Nicky Laws - Last Filed: 02/04/17 18:54> Subjective - Date & Time of Evaluation Date of Evaluation: 02/04/17 Time of Evaluation: 09:00 - Subjective Subjective: PGY1 Medicine note for Dr. Lomax Patient seen and examined. Patient has been transferred back to ICU care as he is in and out of Afib, tachycardic, and mildly hypotensive. He reports his cough has improved and reports he feels better. Denied any fever, chills, chest pain, palpitations, SOB, abd pain, nausea, vomiting, bowel/bladder complaints, pain/swelling in his legs bilaterally. Patient is eating well and in good spirits. Objective - Vital Signs/Intake and Output Vital Signs (last 24 hours): Temp Pulse Resp BP Pulse Ox 98.2 F 79 14 98/59 L 92 L 02/04/17 04:00 02/04/17 06:28 02/04/17 06:28 02/04/17 06:28 02/04/17 06:28 Intake and Output: 02/04/17 02/04/17 06:59 18:59 Intake Total 176 16 Output Total 750 Balance -574 16 - Medications Medications: Current Medications Acetylcysteine (Acetylcysteine 20%) 4 ml INH RQ6 REPLACED BY [facility] Last Admin: 02/04/17 07:30 Dose: 4 ml Albuterol/Ipratropium (Duoneb 3 Mg/0.5 Mg (3 Ml) Ud) 3 ml INH RQ6 REPLACED BY [facility] Last Admin: 02/04/17 07:30 Dose: 3 ml Amiodarone HCl (Cordarone) 200 mg PO DAILY REPLACED BY [facility] Last Admin: 02/03/17 10:19 Dose: 200 mg Budesonide (Pulmicort Respules) 0.25 mg INH RQ12 REPLACED BY [facility] Last Admin: 02/04/17 07:30 Dose: 0.25 mg Diltiazem HCl (Cardizem) 30 mg PO Q8H REPLACED BY [facility] Last Admin: 02/04/17 00:45 Dose: 30 mg Furosemide (Lasix) 20 mg PO BID REPLACED BY [facility] Last Admin: 02/03/17 17:37 Dose: 20 mg Heparin Sodium/Sodium Chloride (Heparin 34140 Units/250ml 1/2 Normal Saline) 25 ,000 units in 250 mls @ 0 mls/hr IV .Q0M PRN; Protocol; Per Protocol PRN Reason: PROTOCOL Last Admin: 02/02/17 17:41 Dose: 9 u/kg/hr, 6.042 mls/hr Diltiazem HCl 125 mg/ Sodium (Chloride) 125 mls @ 5 mls/hr IV .Q24H PRN; 5 MG/ HR PRN Reason: Protocol Last Admin: 02/04/17 05:38 Dose: 10 mg/hr, 10 mls/hr Insulin Human Regular (Novolin R) 0 unit SC ACHS REPLACED BY [facility] PRN Reason: Protocol Last Admin: 02/03/17 22:00 Dose: Not Given Methylprednisolone (Solu-Medrol) 40 mg IVP Q8H REPLACED BY [facility] Last Admin: 02/04/17 01:35 Dose: 40 mg Qxtmu-4-Uiac Ethyl Esters (Lovaza) 1 gm PO DAILY REPLACED BY [facility] Last Admin: 02/03/17 10:19 Dose: 1 gm Ondansetron HCl (Zofran Inj) 4 mg IVP Q6 PRN PRN Reason: Nausea/Vomiting Pantoprazole Sodium (Protonix Ec Tab) 40 mg PO DAILY REPLACED BY [facility] Last Admin: 02/03/17 10:18 Dose: 40 mg Promethazine HCl/Dextromethorphan (Phenergan Dm Syrup) 5 ml PO Q6H PRN PRN Reason: Cough Last Admin: 02/04/17 05:00 Dose: 5 ml Rivaroxaban (Xarelto) 10 mg PO DAILY REPLACED BY [facility] Last Admin: 02/01/17 10:00 Dose: 10 mg Scopolamine (Transderm-Scop) 1 patch TD Q3D REPLACED BY [facility] Last Admin: 02/03/17 17:58 Dose: 1 patch Tiotropium [place] (Spiriva) 18 mcg INH RQ24 REPLACED BY [facility] Last Admin: 02/04/17 07:30 Dose: 18 mcg - Labs Labs: 02/04/17 06:21 02/04/17 06:21 PT 11.7 SECONDS (9.7-12.2) 01/31/17 07:49 INR 1.0 01/31/17 07:49 APTT 69 SECONDS (21-34) H 02/04/17 06:21 - Constitutional Appears: Non-toxic, No Acute Distress - Head Exam Head Exam: ATRAUMATIC, NORMAL INSPECTION, NORMOCEPHALIC - Eye Exam Eye Exam: Normal appearance. absent: Conjunctival injection, Scleral icterus Pupil Exam: NORMAL ACCOMODATION - ENT Exam ENT Exam: Mucous Membranes Moist - Neck Exam Neck Exam: Normal Inspection. absent: Tenderness - Respiratory Exam Respiratory Exam: Wheezes, NORMAL BREATHING PATTERN. absent: Accessory Muscle Use, Clear to Ausculation Bilateral, Rales, Rhonchi, Respiratory Distress Additional comments: coarse breath sounds - Cardiovascular Exam Cardiovascular Exam: Tachycardia, Irregular Rhythm, +S1, +S2 - GI/Abdominal Exam GI & Abdominal Exam: Soft, Normal Bowel Sounds. absent: Firm, Guarding, Rigid, Tenderness - Rectal Exam Rectal Exam: Deferred - Extremities Exam Extremities Exam: Normal Capillary Refill, Normal Inspection. absent: Pedal Edema, Tenderness - Back Exam Back Exam: NORMAL INSPECTION. absent: rash noted, tenderness - Neurological Exam Neurological Exam: Alert, Awake, Oriented x3 - Psychiatric Exam Psychiatric exam: Normal Affect, Normal Mood - Skin Skin Exam: Dry, Intact, Normal Color, Warm Assessment and Plan - Assessment and Plan (Free Text) Assessment: 81 M with PMH of Dm, COPD, Hyperlipidemia, Abdominal Aortic Aneurysm with Stent , history of paroxysmal afib, presented with SOB and chest pain Plan: Afib with RVR, wide complex tachycardia Resolved Patient was on cardizem gtt in ICU which has been switched to PO Cardizem gtt Amiodarone gtt Heparin gtt Dr. Rice on board for elective ablation CANDACE negative x 3 COPD exacerbation with underlying cor pulmonale D dimer 3507 BNP 2560 Troponin negative x 3 CXR: mild venous congestion; R hilar prominence and L central venous catheter; R paratracheal airspace opacity likely represents prominent vasculature. Small nodular denisty at the right lung base. V/Q scan low probability for PE Morphine 1 mg IVP Q4H PRN Zofran 4 mg IVP Q6H PRN Solumedrol 40mg IVP q8H Pulmicort 0.25mg INH Q12 Spiriva 18mcg INH Q24 Duoneb 3ml inh RQ6H Acetylcysteine 4ml inh q6 Scopolamine 1 ptach td q3day Phenergan DM 5ml po q6 prn cough blood culture prelim negative ECHO: LV mildly dilated. mild to mod concentric LVH. EF > 55%. L atrium mod dilated. RV systolic pressure estimated at 50-60mmHg. Severe pulmonary HTN. lipid panel WNL TSH/T4 WNL O2 via [place] Cardio consult, Dr. Lafleur, help appreciated Pulm consult, Dr. Hou, help appreciated. Hx CAD Cath next week as per Dr. Lafleur Lovaza 1gm po daily Consider ASA and high dose statin B/l common iliac A aneurysm CT Abd/pelvis w/o contrast: obstructive hydronephrosis on R secondary to markedly enlarged R common iliac A aneurysm measuring up to 8.2cm. Additionally 5cm L common iliac A anurysm. Relatively stable infrarenal abdominal aortic aneurysm Dr. 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 Duran on board Urology Dr. Fernando on board Renal US: severe unilateral R sided hydronephrosis. large R lower quadrant and pelvic mass likely related to findings. Monitor BUN/Cr HTN Cardizem gtt Diabetes mellitus ISS Accuchecks ACHS Prophylactic measure SCDs Protonix 40 mg PO daily Morphine 1mg IVP Q4 prn pain severe Zofran 4mg IVP Q6 PRN nausea/vomiting Heart healthy diet Dispo: patient transferred to TELE Will discuss with Dr. Monie Laws PGY1 <Fracisco Lomax Jr. - Last Filed: 02/07/17 14:52> Objective - Vital Signs/Intake and Output Vital Signs (last 24 hours): Temp Pulse Resp BP Pulse Ox 97.3 F L 86 20 108/70 96 02/07/17 07:10 02/07/17 09:00 02/07/17 07:10 02/07/17 07:10 02/07/17 07:10 Intake and Output: 02/07/17 02/07/17 06:59 18:59 Intake Total 1394 Output Total 750 Balance 644 - Medications Medications: Current Medications Acetylcysteine (Acetylcysteine 20%) 4 ml INH RQ6 [facility] Last Admin: 02/07/17 13:26 Dose: Not Given Acetylcysteine (Acetylcysteine 20%) 6 ml PO Q12H [facility] Last Admin: 02/07/17 05:43 Dose: 6 ml Albuterol/Ipratropium (Duoneb 3 Mg/0.5 Mg (3 Ml) Ud) 3 ml INH RQ6 [facility] Last Admin: 02/07/17 13:26 Dose: Not Given Alprazolam (Xanax) 0.5 mg PO TID PRN PRN Reason: Anxiety Amiodarone HCl (Cordarone) 200 mg PO DAILY REPLACED BY [facility] Last Admin: 02/07/17 09:40 Dose: Not Given Aspirin (Aspirin Chewable) 81 mg PO DAILY REPLACED BY [facility] Last Admin: 02/07/17 09:39 Dose: Not Given Budesonide (Pulmicort Respules) 0.25 mg INH RQ12 REPLACED BY [facility] Last Admin: 02/07/17 08:03 Dose: 0.25 mg Diltiazem HCl (Cardizem) 60 mg PO Q6H REPLACED BY [facility] Last Admin: 02/07/17 13:28 Dose: Not Given Sodium Chloride (Sodium Chloride 0.9%) 1,000 mls @ 50 mls/hr IV .Q20H REPLACED BY [facility] Stop: 02/08/17 05:00 Insulin Human Regular (Novolin R) 0 unit SC ACHS REPLACED BY [facility] PRN Reason: Protocol Last Admin: 02/07/17 12:00 Dose: Not Given Methylprednisolone (Solu-Medrol) 40 mg IVP Q8H REPLACED BY [facility] Last Admin: 02/07/17 09:39 Dose: 40 mg Llogs-9-Olrr Ethyl Esters (Lovaza) 1 gm PO DAILY REPLACED BY [facility] Last Admin: 02/07/17 09:40 Dose: Not Given Ondansetron HCl (Zofran Inj) 4 mg IVP Q6 PRN PRN Reason: Nausea/Vomiting Pantoprazole Sodium (Protonix Ec Tab) 40 mg PO DAILY REPLACED BY [facility] Last Admin: 02/07/17 09:40 Dose: Not Given Promethazine HCl/Dextromethorphan (Phenergan Dm Syrup) 5 ml PO Q6H PRN PRN Reason: Cough Last Admin: 02/05/17 15:56 Dose: 5 ml Repaglinide (Prandin) 1 mg PO TIDAC REPLACED BY [facility] Last Admin: 02/07/17 12:05 Dose: Not Given Rivaroxaban (Xarelto) 10 mg PO DAILY REPLACED BY [facility] Last Admin: 02/01/17 10:00 Dose: 10 mg Rosuvastatin Calcium (Crestor) 10 mg PO HS REPLACED BY [facility] Scopolamine (Transderm-Scop) 1 patch TD Q3D REPLACED BY [facility] Last Admin: 02/06/17 18:04 Dose: 1 patch Tamsulosin HCl (Flomax) 0.4 mg PO DAILY REPLACED BY [facility] Last Admin: 02/07/17 09:40 Dose: Not Given Tiotropium [place] (Spiriva) 18 mcg INH RQ24 [facility] Last Admin: 02/07/17 08:03 Dose: 18 mcg - Labs Labs: 02/07/17 07:18 02/07/17 07:18 PT 11.4 SECONDS (9.7-12.2) 02/07/17 07:18 INR 1.0 02/07/17 07:18 APTT 43 SECONDS (21-34) H D 02/07/17 07:18 Attending/Attestation - Attestation I have personally seen and examined this patient.: Yes I have fully participated in the care of the patient.: Yes I have reviewed all pertinent clinical information, including history, physical exam and plan: Yes Notes (Text): 02/07/17 14:52 Agree with resident note findings and plan of care
--- NOTE | 2017-02-04 08:04 | CP.CCUPN ---
CCU Subjective - Physician Review Subjective (Free Text): 02/04/17 11:12 events from last 24hrs noted. now back on ICU service due to uncontrolled afib , back on CCB gtt; borderline hypotensive. awake/alert. NAd. offers no complaints. Afeb. HR 80s-180s AF C RVR. BP 80s-100s/40s-60s O2Sat 92-94% NC Gen:NAD HEENT: TONO. Neck: Supple COR: S1, S2, tachy, irreg +JONNY Resp: scattered wheezes b/l ABD: Soft, nt/nd, BS +ve Ext: no edema Neuro: AAOx3. non focal Meds / Labs / Imaging reviewed independently as noted below. A/P: 81M Dm, COPD, Hyperlipidemia, Abdominal Aortic Aneurysm with Stent, history of paroxysmal afib in ICU for AF c RVR; mild COPD exac Neuro: RUBY Resp: O2 Supp as needed. Wean steroids. cont nebs/ inh steroids. Pulm following Cards: d/w Dr. Rice this am. cont ccb gtt; load with amio gtt; dig IV x 1 dose. hold lasix and po ccb until HR better controlled. eventual cardiac cath by dr. odell GI: tolerating PO diet. GI PPx Renal: hold furthe diuretics ID: RUBY Heme: SCDs for ppx; on Hep SQ prognosis guarded Maykel Lara MD CC time spent 35min 02/04/17 11:16 CCU Objective - Vital Signs / Intake & Output Vital Signs (Last 4 hours): Vital Signs Pulse Resp BP Pulse Ox 02/04/17 06:28 79 14 98/59 L 92 L 02/04/17 06:15 157 H 15 90/59 L 82 L 02/04/17 06:00 113 H 15 93 L 02/04/17 05:43 91 H 14 96/60 L 02/04/17 05:28 94 H 15 99/59 L 93 L 02/04/17 04:57 100 H 12 93/67 L 92 L 02/04/17 04:53 99 H 14 88/64 L 93 L 02/04/17 04:29 93 H 17 98/61 L 90 L Intake and Output (Last 8hrs): Intake & Output 05/27/17 05/28/17 05/28/17 22:59 06:59 14:59 Intake Total 320 128 16 Output Total 750 Balance 320 -622 16 Weight 146 lb 8 oz Intake: IV 3 Intake, IV Amount 77 128 16 Left 42 48 6 Left Subclavian Proximal 35 80 10 Port Oral 240 Output: Urine 750 Urine, Voided 750 - Medications Active Medications: Active Medications Generic Name Dose Route Start Last Admin Trade Name Freq PRN Reason Stop Dose Admin Acetylcysteine 4 ml 02/03/17 15:15 02/04/17 07:30 Acetylcysteine 20% INH 4 ml RQ6 NGUYỄN Administration Albuterol/Ipratropium 3 ml 01/30/17 08:00 02/04/17 07:30 Duoneb 3 Mg/0.5 Mg (3 Ml) Ud INH 3 ml RQ6 NGUYỄN Administration Budesonide 0.25 mg 01/30/17 20:00 02/04/17 07:30 Pulmicort Respules INH 0.25 mg RQ12 NGUYỄN Administration Digoxin 0.5 mg 02/04/17 08:02 Lanoxin IVP 02/04/17 08:03 ONCE ONE Heparin Sodium/Sodium Chloride 25,000 units in 250 mls @ 0 mls/hr 02/01/17 11: 00 02/02/17 17:41 Heparin 35002 Units/250ml 1/2 Normal Saline IV 9 u/kg/hr .Q0M PRN 6.042 mls/hr PROTOCOL Administration Protocol Per Protocol Diltiazem HCl 125 mg/ Sodium 125 mls @ 5 mls/hr 02/04/17 05:45 02/04/17 05:38 Chloride IV 10 mg/hr .Q24H PRN 10 mls/hr Protocol Administration 5 MG/HR Amiodarone HCl 900 mg/ 500 mls @ 16.66 mls/hr 02/04/17 08:02 Dextrose IV 02/05/17 08:01 .Q24H ONE Protocol 0.5 MG/MIN Insulin Human Regular 0 unit 01/30/17 07:30 02/04/17 07:43 Novolin R SC 3 unit ACHS NGUYỄN Administration Protocol Methylprednisolone 40 mg 02/02/17 18:00 02/04/17 01:35 Solu-Medrol IVP 40 mg Q8H NGUYỄN Administration Lruev-5-Zrxz Ethyl Esters 1 gm 01/30/17 10:00 02/03/17 10:19 Lovaza PO 1 gm DAILY NGUYỄN Administration Ondansetron HCl 4 mg 01/30/17 02:53 Zofran Inj IVP Q6 PRN Nausea/Vomiting Pantoprazole Sodium 40 mg 01/30/17 10:00 02/03/17 10:18 Protonix Ec Tab PO 40 mg DAILY NGUYỄN Administration Promethazine HCl/Dextromethorphan 5 ml 02/02/17 11:54 02/04/17 05:00 Phenergan Dm Syrup PO 5 ml Q6H PRN Administration Cough Rivaroxaban 10 mg 01/31/17 10:00 02/01/17 10:00 Xarelto PO 10 mg DAILY NGUYỄN Administration Scopolamine 1 patch 02/03/17 17:30 02/03/17 17:58 Transderm-Scop TD 1 patch Q3D NGU[facility]N Administration Tiotropium [place] 18 mcg 01/31/17 08:00 02/04/17 07:30 Spiriva INH 18 mcg RQ24 NGUYỄN Administration - Patient Studies Lab Studies: Lab Studies 02/04/17 02/04/17 02/04/17 Range/Units 07:13 06:21 06:21 WBC (4.8-10.8) K/uL RBC (4.40-5.90) Mil/uL Hgb (12.0-18.0) g/dL Hct (35.0-51.0) % MCV (80.0-94.0) fL MCH (27.0-31.0) pg MCHC (33.0-37.0) g/dL RDW (11.5-14.5) % Plt Count (130-400) K/uL MPV (7.2-11.7) fL Neut % (Auto) (50.0-75.0) % Lymph % (Auto) (20.0-40.0) % [place] % (Auto) (0.0-10.0) % Eos % (Auto) (0.0-4.0) % Baso % (Auto) (0.0-2.0) % Neut # (1.8-7.0) K/uL Lymph # (1.0-4.3) K/uL [place] # (0.0-0.8) K/uL Eos # (0.0-0.7) K/uL Baso # (0.0-0.2) K/uL Neutrophils % (Manual) (50-75) % Band Neutrophils % (0-2) % Lymphocytes % (Manual) (20-40) % Monocytes % (Manual) (0-10) % Platelet Estimate (NORMAL) Hypochromasia (manual) Poikilocytosis (manual Anisocytosis (manual) Tear Drop Cells Ovalocytes Isac Cells APTT 69 H (21-34) SECONDS Sodium 135 (132-148) mmol/L Potassium 4.0 (3.6-5.2) mmol/L Chloride 95 L (98-107) mmol/L Carbon Dioxide 30 (22-30) mmol/L Anion Gap 14 (10-20) BUN 39 H (9-20) mg/dL Creatinine 1.9 H (0.8-1.5) MG/DL Est GFR ( Amer) 41 Est GFR (Non-Af Amer) 34 POC Glucose (mg/dL) 241 H (65-110) mg/dL Random Glucose 196 H (75-110) mg/dL Calcium 7.6 L (8.6-10.4) mg/dl Phosphorus 3.1 (2.5-4.5) mg/dL Magnesium 1.9 (1.6-2.3) mg/dL Total Bilirubin 0.9 (0.2-1.3) mg/dL AST 30 (17-59) U/L ALT 41 (21-72) U/L Alkaline Phosphatase 73 (38-126) U/L Total Protein 5.9 L (6.3-8.3) g/dL Albumin 3.3 L (3.5-5.0) g/dL Globulin 2.7 (2.2-3.9) gm/dL Albumin/Globulin Ratio 1.2 (1.0-2.1) 02/04/17 02/03/17 02/03/17 Range/Units 06:21 16:31 11:10 WBC 10.4 (4.8-10.8) K/uL RBC 3.33 L (4.40-5.90) Mil/uL Hgb 9.7 L (12.0-18.0) g/dL Hct 29.6 L (35.0-51.0) % MCV 89.0 (80.0-94.0) fL MCH 29.1 (27.0-31.0) pg MCHC 32.7 L (33.0-37.0) g/dL RDW 15.8 H (11.5-14.5) % Plt Count 143 (130-400) K/uL MPV 10.0 (7.2-11.7) fL Neut % (Auto) 93.4 H (50.0-75.0) % Lymph % (Auto) 2.6 L (20.0-40.0) % [place] % (Auto) 3.9 (0.0-10.0) % Eos % (Auto) 0.0 (0.0-4.0) % Baso % (Auto) 0.1 (0.0-2.0) % Neut # 9.7 H (1.8-7.0) K/uL Lymph # 0.3 L (1.0-4.3) K/uL [place] # 0.4 (0.0-0.8) K/uL Eos # 0.0 (0.0-0.7) K/uL Baso # 0.0 (0.0-0.2) K/uL Neutrophils % (Manual) (50-75) % Band Neutrophils % (0-2) % Lymphocytes % (Manual) (20-40) % Monocytes % (Manual) (0-10) % Platelet Estimate (NORMAL) Hypochromasia (manual) Poikilocytosis (manual Anisocytosis (manual) Tear Drop Cells Ovalocytes Isac Cells APTT (21-34) SECONDS Sodium (132-148) mmol/L Potassium (3.6-5.2) mmol/L Chloride (98-107) mmol/L Carbon Dioxide (22-30) mmol/L Anion Gap (10-20) BUN (9-20) mg/dL Creatinine (0.8-1.5) MG/DL Est GFR ( Amer) Est GFR (Non-Af Amer) POC Glucose (mg/dL) 302 H 366 H (65-110) mg/dL Random Glucose (75-110) mg/dL Calcium (8.6-10.4) mg/dl Phosphorus (2.5-4.5) mg/dL Magnesium (1.6-2.3) mg/dL Total Bilirubin (0.2-1.3) mg/dL AST (17-59) U/L ALT (21-72) U/L Alkaline Phosphatase (38-126) U/L Total Protein (6.3-8.3) g/dL Albumin (3.5-5.0) g/dL Globulin (2.2-3.9) gm/dL Albumin/Globulin Ratio (1.0-2.1) / Range/Units 06:31 WBC (4.8-10.8) K/uL RBC (4.40-5.90) Mil/uL Hgb (12.0-18.0) g/dL Hct (35.0-51.0) % MCV (80.0-94.0) fL MCH (27.0-31.0) pg MCHC (33.0-37.0) g/dL RDW (11.5-14.5) % Plt Count (130-400) K/uL MPV (7.2-11.7) fL Neut % (Auto) (50.0-75.0) % Lymph % (Auto) (20.0-40.0) % [place] % (Auto) (0.0-10.0) % Eos % (Auto) (0.0-4.0) % Baso % (Auto) (0.0-2.0) % Neut # (1.8-7.0) K/uL Lymph # (1.0-4.3) K/uL [place] # (0.0-0.8) K/uL Eos # (0.0-0.7) K/uL Baso # (0.0-0.2) K/uL Neutrophils % (Manual) 90 H (50-75) % Band Neutrophils % 3 H (0-2) % Lymphocytes % (Manual) 5 L (20-40) % Monocytes % (Manual) 2 (0-10) % Platelet Estimate Slightly decreased L (NORMAL) Hypochromasia (manual) Slight Poikilocytosis (manual Slight Anisocytosis (manual) Slight Tear Drop Cells Slight Ovalocytes Slight Isac Cells Slight APTT (21-34) SECONDS Sodium (132-148) mmol/L Potassium (3.6-5.2) mmol/L Chloride (98-107) mmol/L Carbon Dioxide (22-30) mmol/L Anion Gap (10-20) BUN (9-20) mg/dL Creatinine (0.8-1.5) MG/DL Est GFR ( Amer) Est GFR (Non-Af Amer) POC Glucose (mg/dL) (65-110) mg/dL Random Glucose (75-110) mg/dL Calcium (8.6-10.4) mg/dl Phosphorus (2.5-4.5) mg/dL Magnesium (1.6-2.3) mg/dL Total Bilirubin (0.2-1.3) mg/dL AST (17-59) U/L ALT (21-72) U/L Alkaline Phosphatase (38-126) U/L Total Protein (6.3-8.3) g/dL Albumin (3.5-5.0) g/dL Globulin (2.2-3.9) gm/dL Albumin/Globulin Ratio (1.0-2.1) Laboratory Results - last 24 hr 02/03/17 02/03/17 02/03/17 06:31 11:10 16:31 WBC RBC Hgb Hct MCV MCH MCHC RDW Plt Count MPV Neut % (Auto) Lymph % (Auto) [place] % (Auto) Eos % (Auto) Baso % (Auto) Neut # Lymph # [place] # Eos # Baso # Neutrophils % (Manual) 90 H Band Neutrophils % 3 H Lymphocytes % (Manual) 5 L Monocytes % (Manual) 2 Platelet Estimate Slightly decreased L Hypochromasia (manual) Slight Poikilocytosis (manual Slight Anisocytosis (manual) Slight Tear Drop Cells Slight Ovalocytes Slight Adah Cells Slight APTT Sodium Potassium Chloride Carbon Dioxide Anion Gap BUN Creatinine Est GFR ( Amer) Est GFR (Non-Af Amer) POC Glucose (mg/dL) 366 H 302 H Random Glucose Calcium Phosphorus Magnesium Total Bilirubin AST ALT Alkaline Phosphatase Total Protein Albumin Globulin Albumin/Globulin Ratio 02/04/17 02/04/17 02/04/17 06:21 06:21 06:21 WBC 10.4 RBC 3.33 L Hgb 9.7 L Hct 29.6 L MCV 89.0 MCH 29.1 MCHC 32.7 L RDW 15.8 H Plt Count 143 MPV 10.0 Neut % (Auto) 93.4 H Lymph % (Auto) 2.6 L [place] % (Auto) 3.9 Eos % (Auto) 0.0 Baso % (Auto) 0.1 Neut # 9.7 H Lymph # 0.3 L [place] # 0.4 Eos # 0.0 Baso # 0.0 Neutrophils % (Manual) Band Neutrophils % Lymphocytes % (Manual) Monocytes % (Manual) Platelet Estimate Hypochromasia (manual) Poikilocytosis (manual Anisocytosis (manual) Tear Drop Cells Ovalocytes Isac Cells APTT 69 H Sodium 135 Potassium 4.0 Chloride 95 L Carbon Dioxide 30 Anion Gap 14 BUN 39 H Creatinine 1.9 H Est GFR ( Amer) 41 Est GFR (Non-Af Amer) 34 POC Glucose (mg/dL) Random Glucose 196 H Calcium 7.6 L Phosphorus 3.1 Magnesium 1.9 Total Bilirubin 0.9 AST 30 ALT 41 Alkaline Phosphatase 73 Total Protein 5.9 L Albumin 3.3 L Globulin 2.7 Albumin/Globulin Ratio 1.2 02/04/17 07:13 WBC RBC Hgb Hct MCV MCH MCHC RDW Plt Count MPV Neut % (Auto) Lymph % (Auto) [place] % (Auto) Eos % (Auto) Baso % (Auto) Neut # Lymph # [place] # Eos # Baso # Neutrophils % (Manual) Band Neutrophils % Lymphocytes % (Manual) Monocytes % (Manual) Platelet Estimate Hypochromasia (manual) Poikilocytosis (manual Anisocytosis (manual) Tear Drop Cells Ovalocytes Adah Cells APTT Sodium Potassium Chloride Carbon Dioxide Anion Gap BUN Creatinine Est GFR ( Amer) Est GFR (Non-Af Amer) POC Glucose (mg/dL) 241 H Random Glucose Calcium Phosphorus Magnesium Total Bilirubin AST ALT Alkaline Phosphatase Total Protein Albumin Globulin Albumin/Globulin Ratio Fingerstick Blood Sugar Results: 241 Review of Systems - Review of Systems All systems: reviewed and no additional remarkable complaints except Critical Care Progress Note - Nutrition Nutrition: Nutrition Category Date Time Status Heart Healthy Diet [DIET] Diets 02/02/17 Breakfast Active
[2017-02-04] MEDS ORDERED: Digoxin 500 mcg/2ml (0.5 mg/2ml) Inj IVP ONE (08:30)
[2017-02-04 09:36] LABS: NEUTROPHIL 88 % (50-75); NUCLEATED RED BLOOD CELL 2 % (0-0); TOTAL CELLS COUNTED 100
[2017-02-04 09:37] LABS: LARGE PLATELETS PRESENT
[2017-02-04] MEDS: Pantoprazole 40 mg EC Tab PO SCH (09:44)
[2017-02-04] MEDS: Omega-3-Acid Ethyl Esters 1 GM Cap PO SCH (09:44)
--- NOTE | 2017-02-04 10:31 | CP.PCM.PN ---
Subjective - Date & Time of Evaluation Date of Evaluation: 02/04/17 Time of Evaluation: 07:00 - Subjective Subjective: VASCULAR SURGERY PROGRESS NOTE FOR DR. BEAN AND DR. DIAZ Patient seen and examined at bedside in the ICU. He is tachycardic in the 160s and mildly hypotensive, systolic in the 90s. Patient asymptomatic, sitting up in bed eating his breakfast. Per the nurse, he is in and out of Rapid A fib. He is now back on the cardizem drip and getting amiodarone. Patient denies pain. Tolerating diet. Objective - Vital Signs/Intake and Output Vital Signs (last 24 hours): Temp Pulse Resp BP Pulse Ox 98.2 F 153 H 22 89/65 L 93 L 02/04/17 04:00 02/04/17 08:38 02/04/17 08:38 02/04/17 08:38 02/04/17 08:38 Intake and Output: 02/04/17 02/04/17 06:59 18:59 Intake Total 176 16 Output Total 750 Balance -574 16 - Medications Medications: Current Medications Acetylcysteine (Acetylcysteine 20%) 4 ml INH RQ6 [facility] Last Admin: 02/04/17 07:30 Dose: 4 ml Albuterol/Ipratropium (Duoneb 3 Mg/0.5 Mg (3 Ml) Ud) 3 ml INH RQ6 [facility] Last Admin: 02/04/17 07:30 Dose: 3 ml Budesonide (Pulmicort Respules) 0.25 mg INH RQ12 [facility] Last Admin: 02/04/17 07:30 Dose: 0.25 mg Heparin Sodium/Sodium Chloride (Heparin 62410 Units/250ml 1/2 Normal Saline) 25 ,000 units in 250 mls @ 0 mls/hr IV .Q0M PRN; Protocol; Per Protocol PRN Reason: PROTOCOL Last Admin: 02/02/17 17:41 Dose: 9 u/kg/hr, 6.042 mls/hr Diltiazem HCl 125 mg/ Sodium (Chloride) 125 mls @ 5 mls/hr IV .Q24H PRN; 5 MG/ HR PRN Reason: Protocol Last Admin: 02/04/17 05:38 Dose: 10 mg/hr, 10 mls/hr Amiodarone HCl 900 mg/ (Dextrose) 500 mls @ 16.66 mls/hr IV .Q24H ONE; 0.5 MG/ MIN PRN Reason: Protocol Stop: 02/05/17 08:01 Last Admin: 02/04/17 08:38 Dose: 16.66 mls/hr Insulin Human Regular (Novolin R) 0 unit SC ACHS [facility] PRN Reason: Protocol Last Admin: 02/04/17 07:43 Dose: 3 unit Methylprednisolone (Solu-Medrol) 40 mg IVP Q8H [facility] Last Admin: 02/04/17 09:44 Dose: 40 mg Jhons-0-Moob Ethyl Esters (Lovaza) 1 gm PO DAILY [facility] Last Admin: 02/04/17 09:44 Dose: 1 gm Ondansetron HCl (Zofran Inj) 4 mg IVP Q6 PRN PRN Reason: Nausea/Vomiting Pantoprazole Sodium (Protonix Ec Tab) 40 mg PO DAILY [facility] Last Admin: 02/04/17 09:44 Dose: 40 mg Promethazine HCl/Dextromethorphan (Phenergan Dm Syrup) 5 ml PO Q6H PRN PRN Reason: Cough Last Admin: 02/04/17 05:00 Dose: 5 ml Rivaroxaban (Xarelto) 10 mg PO DAILY [facility] Last Admin: 02/01/17 10:00 Dose: 10 mg Scopolamine (Transderm-Scop) 1 patch TD Q3D [facility] Last Admin: 02/03/17 17:58 Dose: 1 patch Tiotropium [place] (Spiriva) 18 mcg INH RQ24 [facility] Last Admin: 02/04/17 07:30 Dose: 18 mcg - Labs Labs: 02/04/17 06:21 02/04/17 06:21 PT 11.7 SECONDS (9.7-12.2) 01/31/17 07:49 INR 1.0 01/31/17 07:49 APTT 69 SECONDS (21-34) H 02/04/17 06:21 - Constitutional Appears: Non-toxic, No Acute Distress - Head Exam Head Exam: ATRAUMATIC, NORMAL INSPECTION - Respiratory Exam Respiratory Exam: NORMAL BREATHING PATTERN. 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 Bean and Dr. Diaz to discuss best therapeutic approach - Continue medical management - If patient goes for cardiac cath, do not recommend access via either groin - Discussed plan with Dr. Bean and Dr. Emily Peres PGY-2
[2017-02-04] MEDS: Heparin25000 units/250ml 1/2NS 25,000 UNITS/250 ML BAG IV PRN (13:34)
--- NOTE | 2017-02-04 14:01 | CP.PCM.PN ---
Subjective - Date & Time of Evaluation Date of Evaluation: 02/04/17 Time of Evaluation: 09:30 - Subjective Subjective: Patient seen and examined. On and off shortness of breath and wheezing Restarted on Cardizem For A. fib with rapid ventricular response Objective - Vital Signs/Intake and Output Vital Signs (last 24 hours): Temp Pulse Resp BP Pulse Ox 97.4 F L 88 18 106/53 L 97 02/04/17 12:00 02/04/17 13:00 02/04/17 13:00 02/04/17 13:00 02/04/17 13:00 Intake and Output: 02/04/17 02/04/17 06:59 18:59 Intake Total 176 753.5 Output Total 750 600 Balance -574 153.5 - Medications Medications: Current Medications Acetylcysteine (Acetylcysteine 20%) 4 ml INH RQ6 [facility] Last Admin: 02/04/17 13:11 Dose: 4 ml Albuterol/Ipratropium (Duoneb 3 Mg/0.5 Mg (3 Ml) Ud) 3 ml INH RQ6 [facility] Last Admin: 02/04/17 13:11 Dose: 3 ml Budesonide (Pulmicort Respules) 0.25 mg INH RQ12 [facility] Last Admin: 02/04/17 07:30 Dose: 0.25 mg Heparin Sodium/Sodium Chloride (Heparin 53845 Units/250ml 1/2 Normal Saline) 25 ,000 units in 250 mls @ 0 mls/hr IV .Q0M PRN; Protocol; Per Protocol PRN Reason: PROTOCOL Last Admin: 02/04/17 13:34 Dose: 9 u/kg/hr, 6.042 mls/hr Diltiazem HCl 125 mg/ Sodium (Chloride) 125 mls @ 5 mls/hr IV .Q24H PRN; 5 MG/ HR PRN Reason: Protocol Last Admin: 02/04/17 05:38 Dose: 10 mg/hr, 10 mls/hr Amiodarone HCl 900 mg/ (Dextrose) 500 mls @ 16.66 mls/hr IV .Q24H ONE; 0.5 MG/ MIN PRN Reason: Protocol Stop: 02/05/17 08:01 Last Admin: 02/04/17 08:38 Dose: 16.66 mls/hr Insulin Human Regular (Novolin R) 0 unit SC ACHS [facility] PRN Reason: Protocol Last Admin: 02/04/17 12:03 Dose: 8 unit Methylprednisolone (Solu-Medrol) 40 mg IVP Q8H [facility] Last Admin: 02/04/17 09:44 Dose: 40 mg Ohmez-0-Baou Ethyl Esters (Lovaza) 1 gm PO DAILY [facility] Last Admin: 02/04/17 09:44 Dose: 1 gm Ondansetron HCl (Zofran Inj) 4 mg IVP Q6 PRN PRN Reason: Nausea/Vomiting Pantoprazole Sodium (Protonix Ec Tab) 40 mg PO DAILY [facility] Last Admin: 02/04/17 09:44 Dose: 40 mg Promethazine HCl/Dextromethorphan (Phenergan Dm Syrup) 5 ml PO Q6H PRN PRN Reason: Cough Last Admin: 02/04/17 12:03 Dose: 5 ml Rivaroxaban (Xarelto) 10 mg PO DAILY [facility] Last Admin: 02/01/17 10:00 Dose: 10 mg Scopolamine (Transderm-Scop) 1 patch TD Q3D [facility] Last Admin: 02/03/17 17:58 Dose: 1 patch Tiotropium [place] (Spiriva) 18 mcg INH RQ24 [facility] Last Admin: 02/04/17 07:30 Dose: 18 mcg - Labs Labs: 02/04/17 06:21 02/04/17 06:21 PT 11.7 SECONDS (9.7-12.2) 01/31/17 07:49 INR 1.0 01/31/17 07:49 APTT 69 SECONDS (21-34) H 02/04/17 06:21 - Constitutional Appears: No Acute Distress - Head Exam Head Exam: ATRAUMATIC, NORMOCEPHALIC - Eye Exam Eye Exam: Normal appearance - ENT Exam ENT Exam: Mucous Membranes Moist - Neck Exam Neck Exam: Normal Inspection - Respiratory Exam Respiratory Exam: Rhonchi - Cardiovascular Exam Cardiovascular Exam: Irregular Rhythm - GI/Abdominal Exam GI & Abdominal Exam: Soft, Normal Bowel Sounds Assessment and Plan (1) COPD with exacerbation Assessment & Plan: Continue nebulizer treatment and steroids Consider EPS study Continue Cardizem drip/amiodarone Status: Acute (2) Atrial fibrillation with rapid ventricular response Status: Acute
--- NOTE | 2017-02-04 16:38 | PN ---
DATE: 02/04/2017 An 81-year-old male with past medical history of diabetes, COPD, hyperlipidemia, abdominal aortic ane urysm status post repair, paroxysmal atrial fibrillation and CKD. Admitted with COPD exacerbation. Nephrology following for acute renal failure. The patient transferred back to ICU service today after being in AFib with RVR, placed on Cardizem an d amiodarone drips. The patient reports shortness of breath still persists intermittently, unchanged since yesterday. PHYSICAL EXAMINATION: VITAL SIGNS: This afternoon, blood pressure 121/60, heart rate 72, respirations 15, temperature 97.4 , O2 sat 95% on 3 liters O2 via nasal cannula. GENERAL: No distress, lying comfortably in bed, conversing coherently, in full sentences. HEENT: Moist mucous membranes. Nonicteric. CHEST: Bilateral coarse expiratory wheezes with prolonged respiratory phase. HEART: S1, S2 normal, regular rate and rhythm. ABDOMEN: Soft, nontender. EXTREMITIES: Mild left lower leg edema. SKIN: Warm, no cyanosis. Good capillary refill. PSYCHIATRIC: Normal mood, normal affect. LABORATORIES: This morning, CBC: WBC 10.4, hemoglobin 9.7, hematocrit 29.6, platelets 143. [employer]ist ry panel: Sodium 135, potassium 4.0, chloride 95, bicarb 30, BUN 39, creatinine 1.9, glucose 196, ca lcium 7.6, albumin 3.3. ASSESSMENT: 1. Acute renal failure, acute kidney injury on chronic kidney disease stage IIIA. The patient with increased serum creatinine since yesterday in the setting of mild hypotension and atrial fibrillation with rapid ventricular response, likely hemodynamically mediated. Agree with holding diuretics. Bl ood pressure stable today on Cardizem drip. The patient was supposed to go for cardiac catheterization Sunday, postponed until next week. Need t o ensure that serum creatinine is stable and close to baseline before proceeding ahead with cardiac c atheterization to avoid further renal insults. 2. Chronic kidney disease, stage II-IIIA, nonproteinuric kidney disease for the most part, likely du e to renovascular disease as well as atrophic right kidney. As mentioned above, acute kidney injury is likely hemodynamically mediated in the setting of likely renovascular disease. Need to keep patie nt volume replete before pursuing any IV dye study. 3. Hypertension. P.o. meds held. The patient now on Cardizem drip for atrial fibrillation with rap id ventricular response. Lasix also being held with blood pressure in low normal range. Would tam nue to hold diuretics until renal function stabilizes and blood pressure allows for it. 4. Atrophic right kidney. As mentioned previously, there is still some possibility of having residu al renal function in this kidney and a Lasix renal scan would elucidate further. However, this can b e done as an outpatient as well. 5. Electrolyte imbalances. Hypophosphatemia and hypomagnesemia corrected. Monitor and replenish as needed. Dante Duran MD cc: [id number] TT: 02/04/2017 16:38:31 Confirmation # [id number] Dictation # [id number]
[2017-02-04 17:48] LABS: CREATININE, RANDOM URINE 78.5 mg/dL
[2017-02-05] MEDS: Acetylcysteine 20% Inhal Soln (4ml) INH SCH ×4 (01:15→19:42)
[2017-02-05] MEDS: Albuterol-Ipratrop 3 mg / 0.5 (3 ml) UD INH SCH ×4 (01:15→19:42)
[2017-02-05] MEDS: MethylPREDNISolone 40 mg Vial IVP SCH ×3 (03:29→17:19)
[2017-02-05 06:45] LABS: POTASSIUM 4.5 mmol/L (3.6-5.2)
[2017-02-05 06:48] LABS: ALB/GLOB RATIO 1.3 (1.0-2.1); CALCIUM 7.2 mg/dl (8.6-10.4); MAGNESIUM 1.7 mg/dL (1.6-2.3); PHOSPHOROUS 2.7 mg/dL (2.5-4.5); TOTAL PROTEIN 5.1 g/dL (6.3-8.3)
[2017-02-05 06:54] LABS: BASO % 0.1 % (0.0-2.0); HEMATOCRIT 28.5 % (35.0-51.0); LYMPH # 0.2 K/uL (1.0-4.3); LYMPH % 1.6 % (20.0-40.0); MEAN CELL VOLUME 89.6 fL (80.0-94.0); MEAN CORPUSCULAR HEMOGLOBIN 29.8 pg (27.0-31.0); MEAN CORPUSCULAR HGB CONC 33.2 g/dL (33.0-37.0); MEAN PLATELET VOLUME 9.9 fL (7.2-11.7); MONO # 0.4 K/uL (0.0-0.8); MONO % 4.1 % (0.0-10.0); NRBC % 0.2 % (0.0-2.0); PLATELET COUNT 143 K/uL (130-400); RED CELL DISTRIBUTION WIDTH 15.4 % (11.5-14.5); WHITE BLOOD COUNT 10.6 K/uL (4.8-10.8)
--- NOTE | 2017-02-05 07:31 | CP.CCUPN ---
CCU Subjective - Physician Review Subjective (Free Text): no new events. back in NSR on ccb gtt and amio gtt. Afeb. HR 60s - 70s nSR. BP 100s-110s/50s. O2Sat 96-99% NC Gen:NAD HEENT: TONO. Neck: Supple COR: S1, S2, RRR +JONNY Resp: scattered wheezes b/l ABD: Soft, nt/nd, BS +ve Ext: no edema Neuro: AAOx3. non focal Meds / Labs / Imaging reviewed independently as noted below. A/P: 81M Dm, COPD, Hyperlipidemia, Abdominal Aortic Aneurysm with Stent, history of paroxysmal afib in ICU for AF c RVR; mild COPD exac Neuro: RUBY Resp: O2 Supp as needed. Wean steroids. cont nebs/ inh steroids. Pulm following Cards: d/w Dr. Rice this am. Transition to PO meds. hold lasix. eventual cardiac cath by dr. odell GI: tolerating PO diet. GI PPx Renal: RUBY. resume lasix as outpt ID: RUBY Heme: SCDs for ppx; on Hep gtt improving. stable for transfer to [facility] will sign off. Maykel Lara MD 02/05/17 13:28 CCU Objective - Vital Signs / Intake & Output Vital Signs (Last 4 hours): Vital Signs Temp Pulse Resp BP Pulse Ox 02/05/17 07:04 68 15 97/67 L 92 L 02/05/17 07:00 70 13 95 02/05/17 06:04 113 H 14 94/63 L 02/05/17 06:00 79 14 02/05/17 05:04 62 15 104/50 L 96 02/05/17 05:00 60 15 96 02/05/17 04:04 78 14 108/59 L 93 L 02/05/17 04:00 97.0 F L 74 17 96 Intake and Output (Last 8hrs): Intake & Output 02/04/17 02/05/17 02/05/17 22:59 06:59 14:59 Intake Total 684.1 226.6 Output Total 200 450 Balance 484.1 -223.4 Intake: IV 125 Intake, IV Amount 259.1 226.6 Left 48 48 Left Port-A-Cath 77.5 45.0 Lt Portacath "B" 133.6 133.6 Oral 300 0 Output: Urine 200 450 Urine, Voided 200 450 Stool 0 0 Other: # Voids Urine, Voided 1 - Medications Active Medications: Active Medications Generic Name Dose Route Start Last Admin Trade Name Freq PRN Reason Stop Dose Admin Acetylcysteine 4 ml 02/03/17 15:15 02/05/17 01:15 Acetylcysteine 20% INH 4 ml RQ6 [facility] Administration Albuterol/Ipratropium 3 ml 01/30/17 08:00 02/05/17 01:15 Duoneb 3 Mg/0.5 Mg (3 Ml) Ud INH 3 ml RQ6 [facility] Administration Budesonide 0.25 mg 01/30/17 20:00 02/04/17 19:41 Pulmicort Respules INH 0.25 mg RQ12 [facility] Administration Heparin Sodium/Sodium Chloride 25,000 units in 250 mls @ 0 mls/hr 02/01/17 11: 00 02/04/17 13:34 Heparin 16518 Units/250ml 1/2 Normal Saline IV 9 u/kg/hr .Q0M PRN 6.042 mls/hr PROTOCOL Administration Protocol Per Protocol Diltiazem HCl 125 mg/ Sodium 125 mls @ 5 mls/hr 02/04/17 05:45 02/04/17 18:11 Chloride IV 10 mg/hr .Q24H PRN 10 mls/hr Protocol Administration 5 MG/HR Amiodarone HCl 900 mg/ 500 mls @ 16.66 mls/hr 02/04/17 08:02 02/04/17 08:38 Dextrose IV 02/05/17 08:01 16.66 mls/hr .Q24H ONE Administration Protocol 0.5 MG/MIN Insulin Human Regular 0 unit 01/30/17 07:30 02/04/17 22:47 Novolin R SC Not Given ACHS [facility]GU[facility]N Protocol Methylprednisolone 40 mg 02/02/17 18:00 02/05/17 03:29 Solu-Medrol IVP 40 mg Q8H [facility] Administration [id number]-9-[id number] Ethyl Esters 1 gm 01/30/17 10:00 02/04/17 09:44 Lovaza PO 1 gm DAILY [facility] Administration Ondansetron HCl 4 mg 01/30/17 02:53 Zofran Inj IVP Q6 PRN Nausea/Vomiting Pantoprazole Sodium 40 mg 01/30/17 10:00 02/04/17 09:44 Protonix Ec Tab PO 40 mg DAILY [facility] Administration Promethazine HCl/Dextromethorphan 5 ml 02/02/17 11:54 02/04/17 23:30 Phenergan Dm Syrup PO 5 ml Q6H PRN Administration Cough Rivaroxaban 10 mg 01/31/17 10:00 02/01/17 10:00 Xarelto PO 10 mg DAILY [facility] Administration Scopolamine 1 patch 02/03/17 17:30 02/03/17 17:58 Transderm-Scop TD 1 patch Q3D [facility] Administration Tiotropium [place] 18 mcg 01/31/17 08:00 02/04/17 07:30 Spiriva INH 18 mcg RQ24 [facility] Administration - Patient Studies Lab Studies: Lab Studies 02/05/17 02/05/17 02/05/17 Range/Units 06:25 06:25 06:25 WBC 10.6 (4.8-10.8) K/uL RBC 3.18 L (4.40-5.90) Mil/uL Hgb 9.5 L (12.0-18.0) g/dL Hct 28.5 L (35.0-51.0) % MCV 89.6 (80.0-94.0) fL MCH 29.8 (27.0-31.0) pg MCHC 33.2 (33.0-37.0) g/dL RDW 15.4 H (11.5-14.5) % Plt Count 143 (130-400) K/uL MPV 9.9 (7.2-11.7) fL Neut % (Auto) 94.2 H (50.0-75.0) % Lymph % (Auto) 1.6 L (20.0-40.0) % Braxton % (Auto) 4.1 (0.0-10.0) % Eos % (Auto) 0.0 (0.0-4.0) % Baso % (Auto) 0.1 (0.0-2.0) % Neut # 10.0 H (1.8-7.0) K/uL Lymph # 0.2 L (1.0-4.3) K/uL Braxton # 0.4 (0.0-0.8) K/uL Eos # 0.0 (0.0-0.7) K/uL Baso # 0.0 (0.0-0.2) K/uL Neutrophils % (Manual) (50-75) % Band Neutrophils % (0-2) % Lymphocytes % (Manual) (20-40) % Monocytes % (Manual) (0-10) % Nucleated RBC % (0-0) % Toxic Granulation Platelet Estimate (NORMAL) Large Platelets Polychromasia Hypochromasia (manual) Poikilocytosis (manual Basophilic Stippling Anisocytosis (manual) Ovalocytes Holiday Cells APTT 68 H (21-34) SECONDS Sodium 132 (132-148) mmol/L Potassium 4.5 (3.6-5.2) mmol/L Chloride 94 L (98-107) mmol/L Carbon Dioxide 31 H (22-30) mmol/L Anion Gap 12 (10-20) BUN 36 H (9-20) mg/dL Creatinine 1.5 (0.8-1.5) MG/DL Est GFR ( Amer) 54 Est GFR (Non-Af Amer) 45 POC Glucose (mg/dL) (65-110) mg/dL Random Glucose 239 H (75-110) mg/dL Calcium 7.2 L (8.6-10.4) mg/dl Phosphorus 2.7 (2.5-4.5) mg/dL Magnesium 1.7 (1.6-2.3) mg/dL Total Bilirubin 1.0 (0.2-1.3) mg/dL AST 47 (17-59) U/L ALT 70 (21-72) U/L Alkaline Phosphatase 79 (38-126) U/L Total Protein 5.1 L (6.3-8.3) g/dL Albumin 2.9 L (3.5-5.0) g/dL Globulin 2.2 (2.2-3.9) gm/dL Albumin/Globulin Ratio 1.3 (1.0-2.1) Ur Random Creatinine mg/dL Ur Random Sodium mmol/L Ur Random Urea Nitrogn mg/dL 02/04/17 02/04/17 02/04/17 Range/Units 22:26 17:35 17:30 WBC (4.8-10.8) K/uL RBC (4.40-5.90) Mil/uL Hgb (12.0-18.0) g/dL Hct (35.0-51.0) % MCV (80.0-94.0) fL MCH (27.0-31.0) pg MCHC (33.0-37.0) g/dL RDW (11.5-14.5) % Plt Count (130-400) K/uL MPV (7.2-11.7) fL Neut % (Auto) (50.0-75.0) % Lymph % (Auto) (20.0-40.0) % Braxton % (Auto) (0.0-10.0) % Eos % (Auto) (0.0-4.0) % Baso % (Auto) (0.0-2.0) % Neut # (1.8-7.0) K/uL Lymph # (1.0-4.3) K/uL Braxton # (0.0-0.8) K/uL Eos # (0.0-0.7) K/uL Baso # (0.0-0.2) K/uL Neutrophils % (Manual) (50-75) % Band Neutrophils % (0-2) % Lymphocytes % (Manual) (20-40) % Monocytes % (Manual) (0-10) % Nucleated RBC % (0-0) % Toxic Granulation Platelet Estimate (NORMAL) Large Platelets Polychromasia Hypochromasia (manual) Poikilocytosis (manual Basophilic Stippling Anisocytosis (manual) Ovalocytes Holiday Cells APTT (21-34) SECONDS Sodium (132-148) mmol/L Potassium (3.6-5.2) mmol/L Chloride (98-107) mmol/L Carbon Dioxide (22-30) mmol/L Anion Gap (10-20) BUN (9-20) mg/dL Creatinine (0.8-1.5) MG/DL Est GFR ( Amer) Est GFR (Non-Af Amer) POC Glucose (mg/dL) 243 H (65-110) mg/dL Random Glucose (75-110) mg/dL Calcium (8.6-10.4) mg/dl Phosphorus (2.5-4.5) mg/dL Magnesium (1.6-2.3) mg/dL Total Bilirubin (0.2-1.3) mg/dL AST (17-59) U/L ALT (21-72) U/L Alkaline Phosphatase (38-126) U/L Total Protein (6.3-8.3) g/dL Albumin (3.5-5.0) g/dL Globulin (2.2-3.9) gm/dL Albumin/Globulin Ratio (1.0-2.1) Ur Random Creatinine 78.5 mg/dL Ur Random Sodium 9 mmol/L Ur Random Urea Nitrogn Cancelled 895 mg/dL 02/04/17 02/04/17 02/04/17 Range/Units 16:08 11:30 06:21 WBC (4.8-10.8) K/uL RBC (4.40-5.90) Mil/uL Hgb (12.0-18.0) g/dL Hct (35.0-51.0) % MCV (80.0-94.0) fL MCH (27.0-31.0) pg MCHC (33.0-37.0) g/dL RDW (11.5-14.5) % Plt Count (130-400) K/uL MPV (7.2-11.7) fL Neut % (Auto) (50.0-75.0) % Lymph % (Auto) (20.0-40.0) % Braxton % (Auto) (0.0-10.0) % Eos % (Auto) (0.0-4.0) % Baso % (Auto) (0.0-2.0) % Neut # (1.8-7.0) K/uL Lymph # (1.0-4.3) K/uL Braxton # (0.0-0.8) K/uL Eos # (0.0-0.7) K/uL Baso # (0.0-0.2) K/uL Neutrophils % (Manual) 88 H (50-75) % Band Neutrophils % 1 (0-2) % Lymphocytes % (Manual) 5 L (20-40) % Monocytes % (Manual) 6 (0-10) % Nucleated RBC % 2 H (0-0) % Toxic Granulation Present Platelet Estimate Normal (NORMAL) Large Platelets Present Polychromasia Slight Hypochromasia (manual) Slight Poikilocytosis (manual Slight Basophilic Stippling Slight Anisocytosis (manual) Slight Ovalocytes Slight Holiday Cells Slight APTT (21-34) SECONDS Sodium (132-148) mmol/L Potassium (3.6-5.2) mmol/L Chloride (98-107) mmol/L Carbon Dioxide (22-30) mmol/L Anion Gap (10-20) BUN (9-20) mg/dL Creatinine (0.8-1.5) MG/DL Est GFR ( Amer) Est GFR (Non-Af Amer) POC Glucose (mg/dL) 327 H 349 H (65-110) mg/dL Random Glucose (75-110) mg/dL Calcium (8.6-10.4) mg/dl Phosphorus (2.5-4.5) mg/dL Magnesium (1.6-2.3) mg/dL Total Bilirubin (0.2-1.3) mg/dL AST (17-59) U/L ALT (21-72) U/L Alkaline Phosphatase (38-126) U/L Total Protein (6.3-8.3) g/dL Albumin (3.5-5.0) g/dL Globulin (2.2-3.9) gm/dL Albumin/Globulin Ratio (1.0-2.1) Ur Random Creatinine mg/dL Ur Random Sodium mmol/L Ur Random Urea Nitrogn mg/dL Laboratory Results - last 24 hr 02/04/17 02/04/17 02/04/17 06:21 11:30 16:08 WBC RBC Hgb Hct MCV MCH MCHC RDW Plt Count MPV Neut % (Auto) Lymph % (Auto) Braxton % (Auto) Eos % (Auto) Baso % (Auto) Neut # Lymph # Braxton # Eos # Baso # Neutrophils % (Manual) 88 H Band Neutrophils % 1 Lymphocytes % (Manual) 5 L Monocytes % (Manual) 6 Nucleated RBC % 2 H Toxic Granulation Present Platelet Estimate Normal Large Platelets Present Polychromasia Slight Hypochromasia (manual) Slight Poikilocytosis (manual Slight Basophilic Stippling Slight Anisocytosis (manual) Slight Ovalocytes Slight Isac Cells Slight APTT Sodium Potassium Chloride Carbon Dioxide Anion Gap BUN Creatinine Est GFR ( Amer) Est GFR (Non-Af Amer) POC Glucose (mg/dL) 349 H 327 H Random Glucose Calcium Phosphorus Magnesium Total Bilirubin AST ALT Alkaline Phosphatase Total Protein Albumin Globulin Albumin/Globulin Ratio Ur Random Creatinine Ur Random Sodium Ur Random Urea Nitrogn 02/04/17 02/04/17 02/04/17 17:30 17:35 22:26 WBC RBC Hgb Hct MCV MCH MCHC RDW Plt Count MPV Neut % (Auto) Lymph % (Auto) Braxton % (Auto) Eos % (Auto) Baso % (Auto) Neut # Lymph # Braxton # Eos # Baso # Neutrophils % (Manual) Band Neutrophils % Lymphocytes % (Manual) Monocytes % (Manual) Nucleated RBC % Toxic Granulation Platelet Estimate Large Platelets Polychromasia Hypochromasia (manual) Poikilocytosis (manual Basophilic Stippling Anisocytosis (manual) Ovalocytes Isac Cells APTT Sodium Potassium Chloride Carbon Dioxide Anion Gap BUN Creatinine Est GFR ( Amer) Est GFR (Non-Af Amer) POC Glucose (mg/dL) 243 H Random Glucose Calcium Phosphorus Magnesium Total Bilirubin AST ALT Alkaline Phosphatase Total Protein Albumin Globulin Albumin/Globulin Ratio Ur Random Creatinine 78.5 Ur Random Sodium 9 Ur Random Urea Nitrogn 895 Cancelled 02/05/17 02/05/17 02/05/17 06:25 06:25 06:25 WBC 10.6 RBC 3.18 L Hgb 9.5 L Hct 28.5 L MCV 89.6 MCH 29.8 MCHC 33.2 RDW 15.4 H Plt Count 143 MPV 9.9 Neut % (Auto) 94.2 H Lymph % (Auto) 1.6 L Braxton % (Auto) 4.1 Eos % (Auto) 0.0 Baso % (Auto) 0.1 Neut # 10.0 H Lymph # 0.2 L Braxton # 0.4 Eos # 0.0 Baso # 0.0 Neutrophils % (Manual) Band Neutrophils % Lymphocytes % (Manual) Monocytes % (Manual) Nucleated RBC % Toxic Granulation Platelet Estimate Large Platelets Polychromasia Hypochromasia (manual) Poikilocytosis (manual Basophilic Stippling Anisocytosis (manual) Ovalocytes Isac Cells APTT 68 H Sodium 132 Potassium 4.5 Chloride 94 L Carbon Dioxide 31 H Anion Gap 12 BUN 36 H Creatinine 1.5 Est GFR ( Amer) 54 Est GFR (Non-Af Amer) 45 POC Glucose (mg/dL) Random Glucose 239 H Calcium 7.2 L Phosphorus 2.7 Magnesium 1.7 Total Bilirubin 1.0 AST 47 ALT 70 Alkaline Phosphatase 79 Total Protein 5.1 L Albumin 2.9 L Globulin 2.2 Albumin/Globulin Ratio 1.3 Ur Random Creatinine Ur Random Sodium Ur Random Urea Nitrogn Fingerstick Blood Sugar Results: 243 Review of Systems - Review of Systems All systems: reviewed and no additional remarkable complaints except Critical Care Progress Note - Nutrition Nutrition: Nutrition Category Date Time Status Heart Healthy Diet [DIET] Diets 02/02/17 Breakfast Active
[2017-02-05] MEDS: (Novolin R) Insulin Human Regular 100 units/ml vial SC SCH ×3 (07:51→16:45)
--- NOTE | 2017-02-05 07:55 | CP.PCM.PN ---
Subjective - Date & Time of Evaluation Date of Evaluation: 02/05/17 Time of Evaluation: 07:30 Objective - Vital Signs/Intake and Output Vital Signs (last 24 hours): Temp Pulse Resp BP Pulse Ox 97.0 F L 68 15 97/67 L 92 L 02/05/17 04:00 02/05/17 07:04 02/05/17 07:04 02/05/17 07:04 02/05/17 07:04 Intake and Output: 02/05/17 02/05/17 06:59 18:59 Intake Total 354.9 Output Total 450 Balance -95.1 - Medications Medications: Current Medications Acetylcysteine (Acetylcysteine 20%) 4 ml INH RQ6 [facility] Last Admin: 02/05/17 01:15 Dose: 4 ml Albuterol/Ipratropium (Duoneb 3 Mg/0.5 Mg (3 Ml) Ud) 3 ml INH RQ6 [facility] Last Admin: 02/05/17 01:15 Dose: 3 ml Amiodarone HCl (Cordarone) 200 mg PO DAILY [facility] Budesonide (Pulmicort Respules) 0.25 mg INH RQ12 [facility] Last Admin: 02/04/17 19:41 Dose: 0.25 mg Diltiazem HCl (Cardizem) 60 mg PO Q6H [facility] Heparin Sodium/Sodium Chloride (Heparin 03608 Units/250ml 1/2 Normal Saline) 25 ,000 units in 250 mls @ 0 mls/hr IV .Q0M PRN; Protocol; Per Protocol PRN Reason: PROTOCOL Last Admin: 02/04/17 13:34 Dose: 9 u/kg/hr, 6.042 mls/hr Insulin Human Regular (Novolin R) 0 unit SC ACHS [facility] PRN Reason: Protocol Last Admin: 02/05/17 07:51 Dose: 3 unit Methylprednisolone (Solu-Medrol) 40 mg IVP Q8H [facility] Last Admin: 02/05/17 03:29 Dose: 40 mg Kxpqm-[id number]-Rlqs Ethyl Esters (Lovaza) 1 gm PO DAILY [facility] Last Admin: 02/04/17 09:44 Dose: 1 gm Ondansetron HCl (Zofran Inj) 4 mg IVP Q6 PRN PRN Reason: Nausea/Vomiting Pantoprazole Sodium (Protonix Ec Tab) 40 mg PO DAILY [facility] Last Admin: 02/04/17 09:44 Dose: 40 mg Promethazine HCl/Dextromethorphan (Phenergan Dm Syrup) 5 ml PO Q6H PRN PRN Reason: Cough Last Admin: 02/04/17 23:30 Dose: 5 ml Rivaroxaban (Xarelto) 10 mg PO DAILY [facility] Last Admin: 02/01/17 10:00 Dose: 10 mg Scopolamine (Transderm-Scop) 1 patch TD Q3D [facility] Last Admin: 02/03/17 17:58 Dose: 1 patch Tiotropium [place] (Spiriva) 18 mcg INH RQ24 [id number] Last Admin: 02/04/17 07:30 Dose: 18 mcg - Labs Labs: 02/05/17 06:25 02/05/17 06:25 PT 11.7 SECONDS (9.7-12.2) 01/31/17 07:49 INR 1.0 01/31/17 07:49 APTT 68 SECONDS (21-34) H 02/05/17 06:25
[2017-02-05 08:25] LABS: NEUTROPHIL 93 % (50-75); TOTAL CELLS COUNTED 100
[2017-02-05 08:28] LABS: LARGE PLATELETS PRESENT
[2017-02-05] MEDS: Budesonide 0.25 mg/2 ml Inhal Susp UD INH SCH ×2 (08:30→19:42)
[2017-02-05] MEDS: Tiotropium 18 mcg Cap For Inhalation INH SCH (08:30)
[2017-02-05] MEDS: Omega-3-Acid Ethyl Esters 1 GM Cap PO SCH (09:39)
[2017-02-05] MEDS: Pantoprazole 40 mg EC Tab PO SCH (09:40)
[2017-02-05] MEDS: Promethazine DM 6.25 mg-15 mg/5 ml Syrup PO PRN ×2 (09:57→15:56)
--- NOTE | 2017-02-05 15:29 | CP.PCM.PN ---
<Dyan Mcclouda - Last Filed: 02/05/17 15:26> Subjective - Date & Time of Evaluation Date of Evaluation: 02/05/17 Time of Evaluation: 10:00 - Subjective Subjective: Medicine note for Dr. Lomax Patient seen and examined at bedside. He reports his cough has improved and reports he feels better. Denied any fever, chills, chest pain, palpitations, SOB , abd pain, nausea, vomiting, bowel/bladder complaints, pain/swelling in his legs bilaterally. Patient is eating well and in good spirits. Objective - Vital Signs/Intake and Output Vital Signs (last 24 hours): Temp Pulse Resp BP Pulse Ox 97.4 F L 72 15 102/57 L 100 02/05/17 12:00 02/05/17 14:04 02/05/17 14:04 02/05/17 14:04 02/05/17 14:04 Intake and Output: 02/05/17 02/05/17 06:59 18:59 Intake Total 354.9 948.1 Output Total 450 600 Balance -95.1 348.1 - Medications Medications: Current Medications Acetylcysteine (Acetylcysteine 20%) 4 ml INH RQ6 [facility] Last Admin: 02/05/17 13:50 Dose: 4 ml Albuterol/Ipratropium (Duoneb 3 Mg/0.5 Mg (3 Ml) Ud) 3 ml INH RQ6 [facility] Last Admin: 02/05/17 13:50 Dose: 3 ml Alprazolam (Xanax) 0.5 mg PO TID PRN PRN Reason: Anxiety Amiodarone HCl (Cordarone) 200 mg PO DAILY [facility] Last Admin: 02/05/17 09:39 Dose: 200 mg Budesonide (Pulmicort Respules) 0.25 mg INH RQ12 [facility] Last Admin: 02/05/17 08:30 Dose: 0.25 mg Diltiazem HCl (Cardizem) 60 mg PO Q6H [facility] Last Admin: 02/05/17 07:58 Dose: 60 mg Heparin Sodium/Sodium Chloride (Heparin 03798 Units/250ml 1/2 Normal Saline) 25 ,000 units in 250 mls @ 0 mls/hr IV .Q0M PRN; Protocol; Per Protocol PRN Reason: PROTOCOL Last Admin: 02/04/17 13:34 Dose: 9 u/kg/hr, 6.042 mls/hr Insulin Human Regular (Novolin R) 0 unit SC ACHS [facility] PRN Reason: Protocol Last Admin: 02/05/17 12:10 Dose: 4 unit Methylprednisolone (Solu-Medrol) 40 mg IVP Q8H [facility] Last Admin: 02/05/17 09:39 Dose: 40 mg Uhcwk-4-Pduk Ethyl Esters (Lovaza) 1 gm PO DAILY [facility] Last Admin: 02/05/17 09:39 Dose: 1 gm Ondansetron HCl (Zofran Inj) 4 mg IVP Q6 PRN PRN Reason: Nausea/Vomiting Pantoprazole Sodium (Protonix Ec Tab) 40 mg PO DAILY [facility] Last Admin: 02/05/17 09:40 Dose: 40 mg Promethazine HCl/Dextromethorphan (Phenergan Dm Syrup) 5 ml PO Q6H PRN PRN Reason: Cough Last Admin: 02/05/17 09:57 Dose: 5 ml Repaglinide (Prandin) 1 mg PO TIDAC [facility] Rivaroxaban (Xarelto) 10 mg PO DAILY [facility] Last Admin: 02/01/17 10:00 Dose: 10 mg Scopolamine (Transderm-Scop) 1 patch TD Q3D [facility] Last Admin: 02/03/17 17:58 Dose: 1 patch Tamsulosin HCl (Flomax) 0.4 mg PO DAILY [facility] Last Admin: 02/05/17 12:10 Dose: 0.4 mg Tiotropium [place] (Spiriva) 18 mcg INH RQ24 [facility] Last Admin: 02/05/17 08:30 Dose: 18 mcg - Labs Labs: 02/05/17 06:25 02/05/17 06:25 PT 11.7 SECONDS (9.7-12.2) 01/31/17 07:49 INR 1.0 01/31/17 07:49 APTT 68 SECONDS (21-34) H 02/05/17 06:25 - Constitutional Appears: No Acute Distress - Head Exam Head Exam: NORMAL INSPECTION, NORMOCEPHALIC - Respiratory Exam Respiratory Exam: Decreased Breath Sounds - Cardiovascular Exam Cardiovascular Exam: REGULAR RHYTHM - GI/Abdominal Exam GI & Abdominal Exam: Soft, Normal Bowel Sounds. absent: Distended, Tenderness - Extremities Exam Extremities Exam: Normal Inspection. absent: Pedal Edema, Tenderness - Neurological Exam Neurological Exam: Alert, Awake, Oriented x3 - Skin Skin Exam: Dry, Intact, Normal Color, Warm Assessment and Plan - Assessment and Plan (Free Text) Assessment: 81 M with PMH of Dm, COPD, Hyperlipidemia, Abdominal Aortic Aneurysm with Stent , history of paroxysmal afib, presented with SOB and chest pain Plan: Afib with RVR, wide complex tachycardia Resolved Patient was on cardizem gtt in ICU which has been switched to PO Cardizem gtt Amiodarone gtt Heparin gtt Dr. Rice on board for elective ablation CANDACE negative x 3 COPD exacerbation with underlying cor pulmonale D dimer 3507 BNP 2560 Troponin negative x 3 CXR: mild venous congestion; R hilar prominence and L central venous catheter; R paratracheal airspace opacity likely represents prominent vasculature. Small nodular denisty at the right lung base. V/Q scan low probability for PE Morphine 1 mg IVP Q4H PRN Zofran 4 mg IVP Q6H PRN Solumedrol 40mg IVP q8H Pulmicort 0.25mg INH Q12 Spiriva 18mcg INH Q24 Duoneb 3ml inh RQ6H Acetylcysteine 4ml inh q6 Scopolamine 1 ptach td q3day Phenergan DM 5ml po q6 prn cough blood culture prelim negative ECHO: LV mildly dilated. mild to mod concentric LVH. EF > 55%. L atrium mod dilated. RV systolic pressure estimated at 50-60mmHg. Severe pulmonary HTN. lipid panel WNL TSH/T4 WNL O2 via [place] Cardio consult, Dr. Lafleur, help appreciated Pulm consult, Dr. Hou, help appreciated. Hx CAD Cath next week as per Dr. Lafleur Lovaza 1gm po daily Consider ASA and high dose statin B/l common iliac A aneurysm CT Abd/pelvis w/o contrast: obstructive hydronephrosis on R secondary to markedly enlarged R common iliac A aneurysm measuring up to 8.2cm. Additionally 5cm L common iliac A anurysm. Relatively stable infrarenal abdominal aortic aneurysm Dr. 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 Duran on board Urology Dr. Fernando on board Renal US: severe unilateral R sided hydronephrosis. large R lower quadrant and pelvic mass likely related to findings. Monitor BUN/Cr HTN Cardizem gtt Diabetes mellitus ISS Accuchecks ACHS Prophylactic measure SCDs Protonix 40 mg PO daily Morphine 1mg IVP Q4 prn pain severe Zofran 4mg IVP Q6 PRN nausea/vomiting Heart healthy diet Dispo: Patient transferred to ICU due to AFib RVR Will discuss with Dr. Monie Laws PGY1 <Fracisco Lomax Jr. - Last Filed: 02/07/17 14:58> Objective - Vital Signs/Intake and Output Vital Signs (last 24 hours): Temp Pulse Resp BP Pulse Ox 97.3 F L 86 20 108/70 96 02/07/17 07:10 02/07/17 09:00 02/07/17 07:10 02/07/17 07:10 02/07/17 07:10 Intake and Output: 02/07/17 02/07/17 06:59 18:59 Intake Total 1394 Output Total 750 Balance 644 - Medications Medications: Current Medications Acetylcysteine (Acetylcysteine 20%) 4 ml INH RQ6 [facility] Last Admin: 02/07/17 13:26 Dose: Not Given Acetylcysteine (Acetylcysteine 20%) 6 ml PO Q12H [facility] Last Admin: 02/07/17 05:43 Dose: 6 ml Albuterol/Ipratropium (Duoneb 3 Mg/0.5 Mg (3 Ml) Ud) 3 ml INH RQ6 [facility] Last Admin: 02/07/17 13:26 Dose: Not Given Alprazolam (Xanax) 0.5 mg PO TID PRN PRN Reason: Anxiety Amiodarone HCl (Cordarone) 200 mg PO DAILY [facility] Last Admin: 02/07/17 09:40 Dose: Not Given Aspirin (Aspirin Chewable) 81 mg PO DAILY [facility] Last Admin: 02/07/17 09:39 Dose: Not Given Budesonide (Pulmicort Respules) 0.25 mg INH RQ12 [facility] Last Admin: 02/07/17 08:03 Dose: 0.25 mg Diltiazem HCl (Cardizem) 60 mg PO Q6H [facility] Last Admin: 02/07/17 13:28 Dose: Not Given Sodium Chloride (Sodium Chloride 0.9%) 1,000 mls @ 50 mls/hr IV .Q20H [facility] Stop: 02/08/17 05:00 Insulin Human Regular (Novolin R) 0 unit SC ACHS [facility] PRN Reason: Protocol Last Admin: 02/07/17 12:00 Dose: Not Given Methylprednisolone (Solu-Medrol) 40 mg IVP Q8H [facility] Last Admin: 02/07/17 09:39 Dose: 40 mg Gydrj-8-Pdvx Ethyl Esters (Lovaza) 1 gm PO DAILY [facility] Last Admin: 02/07/17 09:40 Dose: Not Given Ondansetron HCl (Zofran Inj) 4 mg IVP Q6 PRN PRN Reason: Nausea/Vomiting Pantoprazole Sodium (Protonix Ec Tab) 40 mg PO DAILY [facility] Last Admin: 02/07/17 09:40 Dose: Not Given Promethazine HCl/Dextromethorphan (Phenergan Dm Syrup) 5 ml PO Q6H PRN PRN Reason: Cough Last Admin: 02/05/17 15:56 Dose: 5 ml Repaglinide (Prandin) 1 mg PO TIDAC [facility] Last Admin: 02/07/17 12:05 Dose: Not Given Rivaroxaban (Xarelto) 10 mg PO DAILY [facility] Last Admin: 02/01/17 10:00 Dose: 10 mg Rosuvastatin Calcium (Crestor) 10 mg PO HS [facility] Scopolamine (Transderm-Scop) 1 patch TD Q3D [facility] Last Admin: 02/06/17 18:04 Dose: 1 patch Tamsulosin HCl (Flomax) 0.4 mg PO DAILY [facility] Last Admin: 02/07/17 09:40 Dose: Not Given Tiotropium [place] (Spiriva) 18 mcg INH RQ24 [facility] Last Admin: 02/07/17 08:03 Dose: 18 mcg - Labs Labs: 02/07/17 07:18 02/07/17 07:18 PT 11.4 SECONDS (9.7-12.2) 02/07/17 07:18 INR 1.0 02/07/17 07:18 APTT 43 SECONDS (21-34) H D 02/07/17 07:18 Attending/Attestation - Attestation I have personally seen and examined this patient.: Yes I have fully participated in the care of the patient.: Yes I have reviewed all pertinent clinical information, including history, physical exam and plan: Yes Notes (Text): 02/07/17 14:57 Agree with resident note findings and plan of care
[2017-02-05] MEDS: Sodium Chloride 0.9% 1,000 ML IV SCH (15:47)
--- NOTE | 2017-02-05 16:07 | PN ---
DATE: 02/05/2017 NEPHROLOGY FOLLOWUP NOTE HISTORY OF PRESENT ILLNESS: An 81-year-old male with past medical history of COPD, diabetes, hyperl ipidemia, abdominal aortic aneurysm, status post repair, paroxysmal AFib, and CKD, admitted with COPD exacerbation. Nephrology following for acute renal failure. REVIEW OF SYSTEMS: The patient today still reporting shortness of breath. Denies any improvement in it. PHYSICAL EXAMINATION: VITAL SIGNS: This afternoon, blood pressure 113/56, heart rate 83, respirations 14, O2 sat 98% via O 2 on nasal cannula. GENERAL: Appears tachypneic. Otherwise, able to converse coherently in full sentences. HEENT: Moist mucous membranes. Nonicteric. RESPIRATORY: Diffuse coarse expiratory wheezes with prolonged expiratory phase. HEART: S1, S2 normal, no murmurs, no gallops, no rubs. ABDOMEN: Soft, mildly tender. EXTREMITIES: Mild left lower leg edema. SKIN: Warm, no cyanosis. PSYCHIATRIC: Normal mood, normal affect. LABORATORY DATA: This morning, CBC: WBC 10.6, hemoglobin 9.5, hematocrit 28.5, platelets 143. Chem istry panel: Sodium 132, potassium 4.5, chloride 94, bicarb 31, BUN 36, creatinine 1.5, glucose 239, calcium 7.2, phosphorus 2.7, albumin 2.9. Urine lytes yesterday: Urine sodium 9, urine creatinine 78.5 mg/dL. ASSESSMENT: 1. Acute renal failure, acute kidney injury on chronic kidney disease, stage IIIA. Appears prerenal etiology. Again, hemodynamically mediated in the setting of low blood pressure and in patient bruce g been on diuretics, which have subsequently been held. Blood pressure better today with patient in normal sinus rhythm. Urine lytes also supportive, suggestive of prerenal etiology. The patient poss ibly for cardiac cath tomorrow. Will restart IV fluids with isotonic saline, normal saline at 60 mL an hour, as well as an acetylcysteine 1200 mg p.o. q. 12 hours as a preventive measure to avoid contr ast-induced nephropathy. 2. Chronic kidney disease, stage II to IIIA, non-proteinuric kidney disease for the most part, likel y due to renovascular disease, as well as atrophic right kidney. As mentioned above, acute kidney in jury is likely hemodynamically mediated in the setting of likely renovascular disease. Need to keep patient volume replete before pursuing any IV dye study as chronic kidney disease status puts him at higher risk for contrast-induced nephropathy. 3. Hypertension. The patient back on p.o. Cardizem 60 mg q. 6 hours. Heart rate appears controlled and currently in sinus rhythm. Continue to hold Lasix until after cardiac cath and until patient is hemodynamically stable for an extended period as any blood pressure drop will likely cause worsening of renal insufficiency. 4. Atrophic right kidney. As mentioned previously, Lasix renal scan would further elucidate any pos sible residual renal function. Can be done as outpatient. 5. Electrolyte imbalances. Phosphorus and magnesium within normal limits. Continue to monitor. Mi ld hyponatremia likely due to some degree of volume depletion. IV fluids should help. Dante Duran MD cc: [id number] TT: 02/05/2017 16:06:14 Confirmation # [id number] Dictation # [id number] kallie
[2017-02-05] MEDS: Acetylcysteine 20% Inhal Soln (4ml) PO SCH (17:18)
--- NOTE | 2017-02-05 19:02 | CP.PCM.PN ---
<Elizabeth Peres - Last Filed: 02/05/17 19:02> Subjective - Date & Time of Evaluation Date of Evaluation: 02/05/17 Time of Evaluation: 07:00 - Subjective Subjective: VASCULAR SURGERY PROGRESS NOTE FOR DR. HORN AND DR. CANELA Patient seen and examined at bedside in the ICU. He is now off the Cardizem drip. Still on Heparin drip. He is tolerating his diet and denies any pain. Objective - Vital Signs/Intake and Output Vital Signs (last 24 hours): Temp Pulse Resp BP Pulse Ox 97.8 F 72 13 120/63 98 02/05/17 16:00 02/05/17 18:00 02/05/17 18:00 02/05/17 18:04 02/05/17 18:00 Intake and Output: 02/05/17 02/06/17 18:59 06:59 Intake Total 1452.1 Output Total 600 Balance 852.1 - Medications Medications: Current Medications Acetylcysteine (Acetylcysteine 20%) 4 ml INH RQ6 [facility] Last Admin: 02/05/17 13:50 Dose: 4 ml Acetylcysteine (Acetylcysteine 20%) 6 ml PO Q12H [facility] Last Admin: 02/05/17 17:18 Dose: 6 ml Albuterol/Ipratropium (Duoneb 3 Mg/0.5 Mg (3 Ml) Ud) 3 ml INH RQ6 [facility] Last Admin: 02/05/17 13:50 Dose: 3 ml Alprazolam (Xanax) 0.5 mg PO TID PRN PRN Reason: Anxiety Amiodarone HCl (Cordarone) 200 mg PO DAILY [facility] Last Admin: 02/05/17 09:39 Dose: 200 mg Budesonide (Pulmicort Respules) 0.25 mg INH RQ12 [facility] Last Admin: 02/05/17 08:30 Dose: 0.25 mg Diltiazem HCl (Cardizem) 60 mg PO Q6H [facility] Last Admin: 02/05/17 15:47 Dose: 60 mg Heparin Sodium/Sodium Chloride (Heparin 29736 Units/250ml 1/2 Normal Saline) 25 ,000 units in 250 mls @ 0 mls/hr IV .Q0M PRN; Protocol; Per Protocol PRN Reason: PROTOCOL Last Admin: 02/04/17 13:34 Dose: 9 u/kg/hr, 6.042 mls/hr Sodium Chloride (Sodium Chloride 0.9%) 1,000 mls @ 60 mls/hr IV .[id number] [facility] Last Admin: 02/05/17 15:47 Dose: 60 mls/hr Insulin Human Regular (Novolin R) 0 unit SC ACHS [facility] PRN Reason: Protocol Last Admin: 02/05/17 16:45 Dose: 4 unit Methylprednisolone (Solu-Medrol) 40 mg IVP Q8H [facility] Last Admin: 02/05/17 17:19 Dose: 40 mg Cikvj-5-Vhec Ethyl Esters (Lovaza) 1 gm PO DAILY [facility] Last Admin: 02/05/17 09:39 Dose: 1 gm Ondansetron HCl (Zofran Inj) 4 mg IVP Q6 PRN PRN Reason: Nausea/Vomiting Pantoprazole Sodium (Protonix Ec Tab) 40 mg PO DAILY [facility] Last Admin: 02/05/17 09:40 Dose: 40 mg Promethazine HCl/Dextromethorphan (Phenergan Dm Syrup) 5 ml PO Q6H PRN PRN Reason: Cough Last Admin: 02/05/17 15:56 Dose: 5 ml Repaglinide (Prandin) 1 mg PO TIDAC [facility] Last Admin: 02/05/17 15:57 Dose: 1 mg Rivaroxaban (Xarelto) 10 mg PO DAILY [facility] Last Admin: 02/01/17 10:00 Dose: 10 mg Scopolamine (Transderm-Scop) 1 patch TD Q3D [facility] Last Admin: 02/03/17 17:58 Dose: 1 patch Tamsulosin HCl (Flomax) 0.4 mg PO DAILY [facility] Last Admin: 02/05/17 12:10 Dose: 0.4 mg Tiotropium [place] (Spiriva) 18 mcg INH RQ24 [facility] Last Admin: 02/05/17 08:30 Dose: 18 mcg - Labs Labs: 02/05/17 06:25 02/05/17 06:25 PT 11.7 SECONDS (9.7-12.2) 01/31/17 07:49 INR 1.0 01/31/17 07:49 APTT 68 SECONDS (21-34) H 02/05/17 06:25 - Constitutional Appears: Non-toxic, No Acute Distress - Respiratory Exam Respiratory Exam: NORMAL BREATHING PATTERN. absent: Respiratory Distress - Cardiovascular Exam Cardiovascular Exam: +S1, +S2 - Extremities Exam Additional comments: bilat feet warm - Neurological Exam Neurological Exam: Alert, Awake Assessment and Plan - Assessment and Plan (Free Text) Assessment: 81yo M with AAA, and right and left iliac aneurysm s/p bypass graft with evidence of retrograde flow - Now off Cardizem drip, still on Heparin drip - Will wait till after cardiac cath for any surgical intervention - If patient goes for cardiac cath, do not recommend access via either groin - Continue medical management - Discussed plan with Dr. Horn and Dr. Emily Peres PGY-2 <Antonio Horn Jr. - Last Filed: 02/11/17 12:47> Objective - Vital Signs/Intake and Output Vital Signs (last 24 hours): Temp Pulse Resp BP Pulse Ox 97.6 F 116 H 20 105/63 92 L 02/11/17 07:00 02/11/17 12:00 02/11/17 12:00 02/11/17 12:00 02/11/17 12:00 Intake and Output: 02/11/17 02/11/17 06:59 18:59 Intake Total 200 Output Total 200 Balance 0 - Medications Medications: Current Medications Acetylcysteine (Acetylcysteine 20%) 4 ml INH RQ6 [facility] Last Admin: 02/11/17 08:27 Dose: 4 ml Albuterol/Ipratropium (Duoneb 3 Mg/0.5 Mg (3 Ml) Ud) 3 ml INH RQ6 [facility] Last Admin: 02/11/17 08:27 Dose: 3 ml Alprazolam (Xanax) 0.5 mg PO TID PRN PRN Reason: Anxiety Last Admin: 02/09/17 10:01 Dose: 0.5 mg Amiodarone HCl (Cordarone) 200 mg PO DAILY [facility] Last Admin: 02/11/17 09:09 Dose: 200 mg Aspirin (Aspirin Chewable) 81 mg PO DAILY [facility] Last Admin: 02/11/17 09:09 Dose: 81 mg Budesonide (Pulmicort Respules) 0.25 mg INH RQ12 [facility] Last Admin: 02/11/17 08:27 Dose: 0.25 mg Heparin Sodium (Porcine) (Heparin) 5,000 units SC Q12 [facility] Last Admin: 02/11/17 09:10 Dose: 5,000 units Diltiazem HCl 125 mg/ Sodium (Chloride) 125 mls @ 5 mls/hr IV .Q24H [facility]; 5 MG/ HR PRN Reason: Protocol Azithromycin 500 mg/ Sodium (Chloride) 250 mls @ 250 mls/hr IVPB DAILY [facility] Ceftriaxone Sodium 1 gm/ (Sodium Chloride) 100 mls @ 100 mls/hr IVPB Q12H [facility] Insulin Human Regular (Novolin R) 0 unit SC ACHS [facility] PRN Reason: Protocol Last Admin: 02/11/17 08:26 Dose: 2 unit Methylprednisolone (Solu-Medrol) 40 mg IVP Q8H [facility] Last Admin: 02/11/17 09:24 Dose: 40 mg Hvfnv-0-Uolu Ethyl Esters (Lovaza) 1 gm PO DAILY [facility] Last Admin: 02/11/17 09:10 Dose: 1 gm Ondansetron HCl (Zofran Inj) 4 mg IVP Q6 PRN PRN Reason: Nausea/Vomiting Pantoprazole Sodium (Protonix Ec Tab) 40 mg PO DAILY [facility] Last Admin: 02/11/17 09:09 Dose: 40 mg Promethazine HCl/Dextromethorphan (Phenergan Dm Syrup) 5 ml PO Q6H PRN PRN Reason: Cough Last Admin: 02/08/17 10:06 Dose: 5 ml Repaglinide (Prandin) 1 mg PO TIDAC [facility] Last Admin: 02/11/17 08:27 Dose: 1 mg Rivaroxaban (Xarelto) 10 mg PO DAILY [facility] Last Admin: 02/01/17 10:00 Dose: 10 mg Rosuvastatin Calcium (Crestor) 10 mg PO HS [facility] Last Admin: 02/09/17 22:09 Dose: 10 mg Scopolamine (Transderm-Scop) 1 patch TD Q3D [facility] Last Admin: 02/09/17 17:25 Dose: 1 patch Tamsulosin HCl (Flomax) 0.4 mg PO DAILY [facility] Last Admin: 02/11/17 09:09 Dose: 0.4 mg Tiotropium [place] (Spiriva) 18 mcg INH RQ24 [facility] Last Admin: 02/11/17 12:12 Dose: 18 mcg - Labs Labs: 02/11/17 12:24 02/11/17 12:24 PT 11.8 SECONDS (9.7-12.2) 02/08/17 13:20 INR 1.1 02/08/17 13:20 APTT 24 SECONDS (21-34) D 02/08/17 13:20 Attending/Attestation - Attestation I have personally seen and examined this patient.: Yes I have fully participated in the care of the patient.: Yes I have reviewed all pertinent clinical information, including history, physical exam and plan: Yes
--- NOTE | 2017-02-05 21:26 | CP.PCM.PN ---
Subjective - Date & Time of Evaluation Date of Evaluation: 02/04/17 Time of Evaluation: 07:05 - Subjective Subjective: Patient seen and evaluated On cardizem Denies chest pain and dyspnea Objective - Vital Signs/Intake and Output Vital Signs (last 24 hours): Temp Pulse Resp BP Pulse Ox 97.8 F 74 13 108/66 99 02/05/17 16:00 02/05/17 20:04 02/05/17 20:04 02/05/17 20:04 02/05/17 20:04 Intake and Output: 02/05/17 02/06/17 18:59 06:59 Intake Total 1452.1 66 Output Total 600 Balance 852.1 66 - Medications Medications: Current Medications Acetylcysteine (Acetylcysteine 20%) 4 ml INH RQ6 [facility] Last Admin: 02/05/17 19:42 Dose: 4 ml Acetylcysteine (Acetylcysteine 20%) 6 ml PO Q12H [facility] Last Admin: 02/05/17 17:18 Dose: 6 ml Albuterol/Ipratropium (Duoneb 3 Mg/0.5 Mg (3 Ml) Ud) 3 ml INH RQ6 [facility] Last Admin: 02/05/17 19:42 Dose: 3 ml Alprazolam (Xanax) 0.5 mg PO TID PRN PRN Reason: Anxiety Amiodarone HCl (Cordarone) 200 mg PO DAILY [facility] Last Admin: 02/05/17 09:39 Dose: 200 mg Budesonide (Pulmicort Respules) 0.25 mg INH RQ12 [facility] Last Admin: 02/05/17 19:42 Dose: 0.25 mg Diltiazem HCl (Cardizem) 60 mg PO Q6H [facility] Last Admin: 02/05/17 20:53 Dose: 60 mg Heparin Sodium/Sodium Chloride (Heparin 14202 Units/250ml 1/2 Normal Saline) 25 ,000 units in 250 mls @ 0 mls/hr IV .Q0M PRN; Protocol; Per Protocol PRN Reason: PROTOCOL Last Admin: 02/04/17 13:34 Dose: 9 u/kg/hr, 6.042 mls/hr Sodium Chloride (Sodium Chloride 0.9%) 1,000 mls @ 60 mls/hr IV .[id number] [facility] Last Admin: 02/05/17 15:47 Dose: 60 mls/hr Insulin Human Regular (Novolin R) 0 unit SC ACHS [facility] PRN Reason: Protocol Last Admin: 02/05/17 16:45 Dose: 4 unit Methylprednisolone (Solu-Medrol) 40 mg IVP Q8H [facility] Last Admin: 02/05/17 17:19 Dose: 40 mg Yzqkt-0-Cngn Ethyl Esters (Lovaza) 1 gm PO DAILY [facility] Last Admin: 02/05/17 09:39 Dose: 1 gm Ondansetron HCl (Zofran Inj) 4 mg IVP Q6 PRN PRN Reason: Nausea/Vomiting Pantoprazole Sodium (Protonix Ec Tab) 40 mg PO DAILY [facility] Last Admin: 02/05/17 09:40 Dose: 40 mg Promethazine HCl/Dextromethorphan (Phenergan Dm Syrup) 5 ml PO Q6H PRN PRN Reason: Cough Last Admin: 02/05/17 15:56 Dose: 5 ml Repaglinide (Prandin) 1 mg PO TIDAC [facility] Last Admin: 02/05/17 15:57 Dose: 1 mg Rivaroxaban (Xarelto) 10 mg PO DAILY [facility] Last Admin: 02/01/17 10:00 Dose: 10 mg Scopolamine (Transderm-Scop) 1 patch TD Q3D [facility] Last Admin: 02/03/17 17:58 Dose: 1 patch Tamsulosin HCl (Flomax) 0.4 mg PO DAILY [facility] Last Admin: 02/05/17 12:10 Dose: 0.4 mg Tiotropium [place] (Spiriva) 18 mcg INH RQ24 [facility] Last Admin: 02/05/17 08:30 Dose: 18 mcg - Labs Labs: 02/05/17 06:25 02/05/17 06:25 PT 11.7 SECONDS (9.7-12.2) 01/31/17 07:49 INR 1.0 01/31/17 07:49 APTT 68 SECONDS (21-34) H 02/05/17 06:25
--- NOTE | 2017-02-05 21:31 | CP.PCM.PN ---
Subjective - Date & Time of Evaluation Date of Evaluation: 02/05/17 Time of Evaluation: 07:15 - Subjective Subjective: Patient seen and evaluated Denies chest pain and dyspnea Objective - Vital Signs/Intake and Output Vital Signs (last 24 hours): Temp Pulse Resp BP Pulse Ox 97.8 F 74 13 108/66 99 02/05/17 16:00 02/05/17 20:04 02/05/17 20:04 02/05/17 20:04 02/05/17 20:04 Intake and Output: 02/05/17 02/06/17 18:59 06:59 Intake Total 1452.1 66 Output Total 600 Balance 852.1 66 - Medications Medications: Current Medications Acetylcysteine (Acetylcysteine 20%) 4 ml INH RQ6 [facility] Last Admin: 02/05/17 19:42 Dose: 4 ml Acetylcysteine (Acetylcysteine 20%) 6 ml PO Q12H [facility] Last Admin: 02/05/17 17:18 Dose: 6 ml Albuterol/Ipratropium (Duoneb 3 Mg/0.5 Mg (3 Ml) Ud) 3 ml INH RQ6 [facility] Last Admin: 02/05/17 19:42 Dose: 3 ml Alprazolam (Xanax) 0.5 mg PO TID PRN PRN Reason: Anxiety Amiodarone HCl (Cordarone) 200 mg PO DAILY [facility] Last Admin: 02/05/17 09:39 Dose: 200 mg Budesonide (Pulmicort Respules) 0.25 mg INH RQ12 [facility] Last Admin: 02/05/17 19:42 Dose: 0.25 mg Diltiazem HCl (Cardizem) 60 mg PO Q6H [facility] Last Admin: 02/05/17 20:53 Dose: 60 mg Heparin Sodium/Sodium Chloride (Heparin 02578 Units/250ml 1/2 Normal Saline) 25 ,000 units in 250 mls @ 0 mls/hr IV .Q0M PRN; Protocol; Per Protocol PRN Reason: PROTOCOL Last Admin: 02/04/17 13:34 Dose: 9 u/kg/hr, 6.042 mls/hr Sodium Chloride (Sodium Chloride 0.9%) 1,000 mls @ 60 mls/hr IV .[id number] [facility] Last Admin: 02/05/17 15:47 Dose: 60 mls/hr Insulin Human Regular (Novolin R) 0 unit SC ACHS [facility] PRN Reason: Protocol Last Admin: 02/05/17 16:45 Dose: 4 unit Methylprednisolone (Solu-Medrol) 40 mg IVP Q8H [facility] Last Admin: 02/05/17 17:19 Dose: 40 mg Brcgl-3-Sall Ethyl Esters (Lovaza) 1 gm PO DAILY [facility] Last Admin: 02/05/17 09:39 Dose: 1 gm Ondansetron HCl (Zofran Inj) 4 mg IVP Q6 PRN PRN Reason: Nausea/Vomiting Pantoprazole Sodium (Protonix Ec Tab) 40 mg PO DAILY [facility] Last Admin: 02/05/17 09:40 Dose: 40 mg Promethazine HCl/Dextromethorphan (Phenergan Dm Syrup) 5 ml PO Q6H PRN PRN Reason: Cough Last Admin: 02/05/17 15:56 Dose: 5 ml Repaglinide (Prandin) 1 mg PO TIDAC [facility] Last Admin: 02/05/17 15:57 Dose: 1 mg Rivaroxaban (Xarelto) 10 mg PO DAILY [facility] Last Admin: 02/01/17 10:00 Dose: 10 mg Scopolamine (Transderm-Scop) 1 patch TD Q3D [facility] Last Admin: 02/03/17 17:58 Dose: 1 patch Tamsulosin HCl (Flomax) 0.4 mg PO DAILY [facility] Last Admin: 02/05/17 12:10 Dose: 0.4 mg Tiotropium Prim (Spiriva) 18 mcg INH RQ24 [facility] Last Admin: 02/05/17 08:30 Dose: 18 mcg - Labs Labs: 02/05/17 06:25 02/05/17 06:25 PT 11.7 SECONDS (9.7-12.2) 01/31/17 07:49 INR 1.0 01/31/17 07:49 APTT 68 SECONDS (21-34) H 02/05/17 06:25
[2017-02-06] MEDS: Albuterol-Ipratrop 3 mg / 0.5 (3 ml) UD INH SCH ×4 (01:37→19:42)
[2017-02-06] MEDS: Acetylcysteine 20% Inhal Soln (4ml) INH SCH ×4 (01:37→19:42)
[2017-02-06] MEDS: MethylPREDNISolone 40 mg Vial IVP SCH ×3 (03:10→18:09)
[2017-02-06] MEDS: Acetylcysteine 20% Inhal Soln (4ml) PO SCH ×2 (06:30→18:30)
[2017-02-06 06:45] LABS: BASO % 0.1 % (0.0-2.0); LYMPH # 0.2 K/uL (1.0-4.3); LYMPH % 1.8 % (20.0-40.0); MEAN CELL VOLUME 87.4 fL (80.0-94.0); MEAN CORPUSCULAR HGB CONC 33.2 g/dL (33.0-37.0); MONO # 0.4 K/uL (0.0-0.8); MONO % 3.6 % (0.0-10.0); NRBC % 0.2 % (0.0-2.0); PLATELET COUNT 139 K/uL (130-400); RED CELL DISTRIBUTION WIDTH 15.9 % (11.5-14.5); WHITE BLOOD COUNT 10.7 K/uL (4.8-10.8)
[2017-02-06 07:06] LABS: POTASSIUM 4.5 mmol/L (3.6-5.2)
[2017-02-06 07:08] LABS: ALB/GLOB RATIO 1.3 (1.0-2.1); BILIRUBIN,TOTAL 1.1 mg/dL (0.2-1.3); PHOSPHOROUS 2.7 mg/dL (2.5-4.5); TOTAL PROTEIN 5.1 g/dL (6.3-8.3)
[2017-02-06 07:09] LABS: MAGNESIUM 1.7 mg/dL (1.6-2.3)
--- NOTE | 2017-02-06 07:27 | CON ---
DATE: 01/30/2017 CHIEF COMPLAINT: Right hydronephrosis. HISTORY OF PRESENT ILLNESS: The patient was admitted to the hospital with exacerbation of asthma and renal insufficiency. His renal insufficiency has improved with hydration. REASON FOR THE CONSULTATION: The patient has right hydronephrosis. The patient has no history of re nal colic or flank pain. REVIEW OF SYSTEMS: RESPIRATORY: The patient has a history of asthma and/or COPD. CARDIAC: The patient has no history of chest pain or palpitations. GASTROINTESTINAL: The patient has no history of nauseousness and vomiting. GENITOURINARY: The patient denies any history of renal stones or renal calculi or previous pathol ogy. NEUROLOGICAL, ORTHOPEDIC, INTEGUMENT AND PSYCHIATRIC HISTORY: Noncontributory. SOCIAL HISTORY: The patient lives in [place] with his . PHYSICAL EXAMINATION: VITAL SIGNS: Within normal limits. HEAD, EARS, EYES, NOSE, AND THROAT: Within normal limits. NECK: Supple. There are no bruits, nodes, or masses. CHEST: Clear bilaterally. There are no rales or rhonchi. HEART: Normal sinus rhythm. ABDOMEN: Soft, tender. There is no mass or organomegaly. There are no bruits. EXTREMITIES: Normal. RECTAL: Shows 2+ non-nodular prostate. LABORATORY DATA: I have also reviewed The patient's CAT scan of the abdomen and pelvis which shows a large right iliac aneurysm. IMPRESSION: Right hydronephrosis probably secondary to the iliac aneurysm. No therapy is recommende d for this hydronephrosis at this time. Vascular consultation is recommended for therapy for renal a neurysm. Bora Fernando MD cc: [phone] TT: 02/05/2017 18:03:47 Confirmation # [id number] Dictation # [id number]
[2017-02-06 07:55] LABS: METAMYELOCYTE 1 % (0-0); MYELOCYTE 1 % (0-0); NEUTROPHIL 90 % (50-75); TOTAL CELLS COUNTED 100
[2017-02-06] MEDS: Tiotropium 18 mcg Cap For Inhalation INH SCH (08:06)
[2017-02-06] MEDS: Budesonide 0.25 mg/2 ml Inhal Susp UD INH SCH ×2 (08:06→19:42)
[2017-02-06] MEDS: (Novolin R) Insulin Human Regular 100 units/ml vial SC SCH ×3 (08:13→16:22)
[2017-02-06] MEDS: Sodium Chloride 0.9% 1,000 ML IV SCH (08:44)
--- NOTE | 2017-02-06 09:27 | CP.PCM.PN ---
<Maxi Paez - Last Filed: 02/06/17 09:28> Subjective - Date & Time of Evaluation Date of Evaluation: 02/06/17 Time of Evaluation: 09:26 - Subjective Subjective: Surgery: Dr. Horn Pt seen and examined. Resting comfortably in bed. Per nursing no acute events overnight, pt has no complaints at this time. Objective - Vital Signs/Intake and Output Vital Signs (last 24 hours): Temp Pulse Resp BP Pulse Ox 98.3 F 78 16 113/65 100 02/06/17 08:00 02/06/17 08:00 02/06/17 08:00 02/06/17 08:00 02/06/17 08:00 Intake and Output: 02/06/17 02/06/17 06:59 18:59 Intake Total 1028 252 Output Total 600 0 Balance 428 252 - Medications Medications: Current Medications Acetylcysteine (Acetylcysteine 20%) 4 ml INH RQ6 [facility] Last Admin: 02/06/17 08:06 Dose: 4 ml Acetylcysteine (Acetylcysteine 20%) 6 ml PO Q12H [facility] Last Admin: 02/06/17 06:30 Dose: 6 ml Albuterol/Ipratropium (Duoneb 3 Mg/0.5 Mg (3 Ml) Ud) 3 ml INH RQ6 [facility] Last Admin: 02/06/17 08:06 Dose: 3 ml Alprazolam (Xanax) 0.5 mg PO TID PRN PRN Reason: Anxiety Amiodarone HCl (Cordarone) 200 mg PO DAILY [facility] Last Admin: 02/05/17 09:39 Dose: 200 mg Budesonide (Pulmicort Respules) 0.25 mg INH RQ12 [facility] Last Admin: 02/06/17 08:06 Dose: 0.25 mg Diltiazem HCl (Cardizem) 60 mg PO Q6H [facility] Last Admin: 02/06/17 08:12 Dose: 60 mg Heparin Sodium/Sodium Chloride (Heparin 81956 Units/250ml 1/2 Normal Saline) 25 ,000 units in 250 mls @ 0 mls/hr IV .Q0M PRN; Protocol; Per Protocol PRN Reason: PROTOCOL Last Admin: 02/04/17 13:34 Dose: 9 u/kg/hr, 6.042 mls/hr Sodium Chloride (Sodium Chloride 0.9%) 1,000 mls @ 60 mls/hr IV .[id number] [facility] Last Admin: 02/06/17 08:44 Dose: 60 mls/hr Insulin Human Regular (Novolin R) 0 unit SC ACHS [facility] PRN Reason: Protocol Last Admin: 02/06/17 08:13 Dose: 4 unit Methylprednisolone (Solu-Medrol) 40 mg IVP Q8H [facility] Last Admin: 02/06/17 03:10 Dose: 40 mg Egcxr-7-Dyck Ethyl Esters (Lovaza) 1 gm PO DAILY [facility] Last Admin: 02/05/17 09:39 Dose: 1 gm Ondansetron HCl (Zofran Inj) 4 mg IVP Q6 PRN PRN Reason: Nausea/Vomiting Pantoprazole Sodium (Protonix Ec Tab) 40 mg PO DAILY [facility] Last Admin: 02/05/17 09:40 Dose: 40 mg Promethazine HCl/Dextromethorphan (Phenergan Dm Syrup) 5 ml PO Q6H PRN PRN Reason: Cough Last Admin: 02/05/17 15:56 Dose: 5 ml Repaglinide (Prandin) 1 mg PO TIDAC [facility] Last Admin: 02/06/17 08:12 Dose: 1 mg Rivaroxaban (Xarelto) 10 mg PO DAILY [facility] Last Admin: 02/01/17 10:00 Dose: 10 mg Scopolamine (Transderm-Scop) 1 patch TD Q3D [facility] Last Admin: 02/03/17 17:58 Dose: 1 patch Tamsulosin HCl (Flomax) 0.4 mg PO DAILY [facility] Last Admin: 02/05/17 12:10 Dose: 0.4 mg Tiotropium [place] (Spiriva) 18 mcg INH RQ24 [facility] Last Admin: 02/06/17 08:06 Dose: 18 mcg - Labs Labs: 02/06/17 06:35 02/06/17 06:35 PT 11.7 SECONDS (9.7-12.2) 01/31/17 07:49 INR 1.0 01/31/17 07:49 APTT 67 SECONDS (21-34) H 02/06/17 06:35 - Constitutional Appears: Non-toxic, No Acute Distress - Head Exam Head Exam: ATRAUMATIC, NORMOCEPHALIC - Eye Exam Eye Exam: EOMI - ENT Exam ENT Exam: Mucous Membranes Moist - Neck Exam Neck Exam: Full ROM - Respiratory Exam Respiratory Exam: NORMAL BREATHING PATTERN. absent: Accessory Muscle Use, Respiratory Distress - GI/Abdominal Exam GI & Abdominal Exam: Soft. absent: Tenderness - Neurological Exam Neurological Exam: Alert, Awake, Oriented x3 Assessment and Plan - Assessment and Plan (Free Text) Assessment: 81yo M with AAA, and right and left iliac aneurysm s/p bypass graft with evidence of retrograde flow - Will wait till after cardiac cath for any surgical intervention - If patient goes for cardiac cath, do not recommend access via either groin - Continue medical management -will d/w attending Philippe PGY2 <Antonio Horn Jr. - Last Filed: 02/11/17 12:48> Objective - Vital Signs/Intake and Output Vital Signs (last 24 hours): Temp Pulse Resp BP Pulse Ox 97.6 F 116 H 20 105/63 92 L 02/11/17 07:00 02/11/17 12:00 02/11/17 12:00 02/11/17 12:00 02/11/17 12:00 Intake and Output: 02/11/17 02/11/17 06:59 18:59 Intake Total 200 Output Total 200 Balance 0 - Medications Medications: Current Medications Acetylcysteine (Acetylcysteine 20%) 4 ml INH RQ6 [facility] Last Admin: 02/11/17 08:27 Dose: 4 ml Albuterol/Ipratropium (Duoneb 3 Mg/0.5 Mg (3 Ml) Ud) 3 ml INH RQ6 [facility] Last Admin: 02/11/17 08:27 Dose: 3 ml Alprazolam (Xanax) 0.5 mg PO TID PRN PRN Reason: Anxiety Last Admin: 02/09/17 10:01 Dose: 0.5 mg Amiodarone HCl (Cordarone) 200 mg PO DAILY [facility] Last Admin: 02/11/17 09:09 Dose: 200 mg Aspirin (Aspirin Chewable) 81 mg PO DAILY [facility] Last Admin: 02/11/17 09:09 Dose: 81 mg Budesonide (Pulmicort Respules) 0.25 mg INH RQ12 [facility] Last Admin: 02/11/17 08:27 Dose: 0.25 mg Heparin Sodium (Porcine) (Heparin) 5,000 units SC Q12 [facility] Last Admin: 02/11/17 09:10 Dose: 5,000 units Diltiazem HCl 125 mg/ Sodium (Chloride) 125 mls @ 5 mls/hr IV .Q24H [facility]; 5 MG/ HR PRN Reason: Protocol Azithromycin 500 mg/ Sodium (Chloride) 250 mls @ 250 mls/hr IVPB DAILY [facility] Ceftriaxone Sodium 1 gm/ (Sodium Chloride) 100 mls @ 100 mls/hr IVPB Q12H [facility] Insulin Human Regular (Novolin R) 0 unit SC ACHS [facility] PRN Reason: Protocol Last Admin: 02/11/17 08:26 Dose: 2 unit Methylprednisolone (Solu-Medrol) 40 mg IVP Q8H [facility] Last Admin: 02/11/17 09:24 Dose: 40 mg Bnona-6-Xuir Ethyl Esters (Lovaza) 1 gm PO DAILY [facility] Last Admin: 02/11/17 09:10 Dose: 1 gm Ondansetron HCl (Zofran Inj) 4 mg IVP Q6 PRN PRN Reason: Nausea/Vomiting Pantoprazole Sodium (Protonix Ec Tab) 40 mg PO DAILY [facility] Last Admin: 02/11/17 09:09 Dose: 40 mg Promethazine HCl/Dextromethorphan (Phenergan Dm Syrup) 5 ml PO Q6H PRN PRN Reason: Cough Last Admin: 02/08/17 10:06 Dose: 5 ml Repaglinide (Prandin) 1 mg PO TIDAC [facility] Last Admin: 02/11/17 08:27 Dose: 1 mg Rivaroxaban (Xarelto) 10 mg PO DAILY [facility] Last Admin: 02/01/17 10:00 Dose: 10 mg Rosuvastatin Calcium (Crestor) 10 mg PO HS [facility] Last Admin: 02/09/17 22:09 Dose: 10 mg Scopolamine (Transderm-Scop) 1 patch TD Q3D [facility] Last Admin: 02/09/17 17:25 Dose: 1 patch Tamsulosin HCl (Flomax) 0.4 mg PO DAILY [facility] Last Admin: 02/11/17 09:09 Dose: 0.4 mg Tiotropium [place] (Spiriva) 18 mcg INH RQ24 [facility] Last Admin: 02/11/17 12:12 Dose: 18 mcg - Labs Labs: 02/11/17 12:24 02/11/17 12:24 PT 11.8 SECONDS (9.7-12.2) 02/08/17 13:20 INR 1.1 02/08/17 13:20 APTT 24 SECONDS (21-34) D 02/08/17 13:20 Attending/Attestation - Attestation I have personally seen and examined this patient.: Yes I have fully participated in the care of the patient.: Yes I have reviewed all pertinent clinical information, including history, physical exam and plan: Yes
--- NOTE | 2017-02-06 09:40 | CP.PCM.PN ---
Subjective - Date & Time of Evaluation Date of Evaluation: 02/06/17 Time of Evaluation: 09:05 - Subjective Subjective: EP-Cardiology Progress Note Dr. Rice Patient seen and examined at bedside in the ICU. No acute events overnight. Over the weekend, pt was transferred to floors in [facility], but redeveloped afib and had episodes of hypotension to SBP 90's concurrently, so he was transferred back to the ICU and was started on an Amio drip/restarted on a Cardizem drip. Drips have since been discontinued, but patient continues to experience intermittent rapid HRs (unclear if afib episodes) and frequent PACs on bedside monitor. He reports feeling worse today, continues to have intermittent wet cough with some production, feels SOB despite being on 4L NC, and continues to have intermittent episodes of chest pain (not only associated with coughing). Admits also to mild LLE pain. Denies pain with respiration, dizziness. Objective - Vital Signs/Intake and Output Vital Signs (last 24 hours): Temp Pulse Resp BP Pulse Ox 98.3 F 78 16 113/65 100 02/06/17 08:00 02/06/17 08:00 02/06/17 08:00 02/06/17 08:00 02/06/17 08:00 Intake and Output: 02/06/17 02/06/17 06:59 18:59 Intake Total 1028 252 Output Total 600 0 Balance 428 252 - Medications Medications: Current Medications Acetylcysteine (Acetylcysteine 20%) 4 ml INH RQ6 [facility] Last Admin: 02/06/17 08:06 Dose: 4 ml Acetylcysteine (Acetylcysteine 20%) 6 ml PO Q12H [facility] Last Admin: 02/06/17 06:30 Dose: 6 ml Albuterol/Ipratropium (Duoneb 3 Mg/0.5 Mg (3 Ml) Ud) 3 ml INH RQ6 [facility] Last Admin: 02/06/17 08:06 Dose: 3 ml Alprazolam (Xanax) 0.5 mg PO TID PRN PRN Reason: Anxiety Amiodarone HCl (Cordarone) 200 mg PO DAILY [facility] Last Admin: 02/05/17 09:39 Dose: 200 mg Budesonide (Pulmicort Respules) 0.25 mg INH RQ12 [facility] Last Admin: 02/06/17 08:06 Dose: 0.25 mg Diltiazem HCl (Cardizem) 60 mg PO Q6H [facility] Last Admin: 02/06/17 08:12 Dose: 60 mg Heparin Sodium/Sodium Chloride (Heparin 71241 Units/250ml 1/2 Normal Saline) 25 ,000 units in 250 mls @ 0 mls/hr IV .Q0M PRN; Protocol; Per Protocol PRN Reason: PROTOCOL Last Admin: 02/04/17 13:34 Dose: 9 u/kg/hr, 6.042 mls/hr Sodium Chloride (Sodium Chloride 0.9%) 1,000 mls @ 60 mls/hr IV .[id number] [facility] Last Admin: 02/06/17 08:44 Dose: 60 mls/hr Insulin Human Regular (Novolin R) 0 unit SC ACHS [facility] PRN Reason: Protocol Last Admin: 02/06/17 08:13 Dose: 4 unit Methylprednisolone (Solu-Medrol) 40 mg IVP Q8H [facility] Last Admin: 02/06/17 03:10 Dose: 40 mg Ptryv-2-Loek Ethyl Esters (Lovaza) 1 gm PO DAILY [facility] Last Admin: 02/05/17 09:39 Dose: 1 gm Ondansetron HCl (Zofran Inj) 4 mg IVP Q6 PRN PRN Reason: Nausea/Vomiting Pantoprazole Sodium (Protonix Ec Tab) 40 mg PO DAILY [facility] Last Admin: 02/05/17 09:40 Dose: 40 mg Promethazine HCl/Dextromethorphan (Phenergan Dm Syrup) 5 ml PO Q6H PRN PRN Reason: Cough Last Admin: 02/05/17 15:56 Dose: 5 ml Repaglinide (Prandin) 1 mg PO TIDAC [facility] Last Admin: 02/06/17 08:12 Dose: 1 mg Rivaroxaban (Xarelto) 10 mg PO DAILY [facility] Last Admin: 02/01/17 10:00 Dose: 10 mg Scopolamine (Transderm-Scop) 1 patch TD Q3D [facility] Last Admin: 02/03/17 17:58 Dose: 1 patch Tamsulosin HCl (Flomax) 0.4 mg PO DAILY [facility] Last Admin: 02/05/17 12:10 Dose: 0.4 mg Tiotropium [place] (Spiriva) 18 mcg INH RQ24 [facility] Last Admin: 02/06/17 08:06 Dose: 18 mcg - Labs Labs: 02/06/17 06:35 02/06/17 06:35 PT 11.7 SECONDS (9.7-12.2) 01/31/17 07:49 INR 1.0 01/31/17 07:49 APTT 67 SECONDS (21-34) H 02/06/17 06:35 - Constitutional Appears: Non-toxic, No Acute Distress, Chronically Ill - Head Exam Head Exam: ATRAUMATIC, NORMAL INSPECTION, NORMOCEPHALIC - Eye Exam Eye Exam: EOMI, Normal appearance. absent: Conjunctival injection, Scleral icterus Pupil Exam: absent: Irregular, Unequal - ENT Exam ENT Exam: Mucous Membranes Moist. absent: Mucous Membranes Dry - Respiratory Exam Respiratory Exam: Chest Wall Tenderness (mild, midline), Rhonchi (diffuse rhonci in all auscultated currie during inspiration and expiration, more prominent at bases). absent: Accessory Muscle Use, Clear to Ausculation Bilateral, Respiratory Distress, Stridor, NORMAL BREATHING PATTERN Additional comments: intermittent wet cough throughout exam - Cardiovascular Exam Cardiovascular Exam: REGULAR RHYTHM, +S1, +S2 Additional comments: Very difficult to auscultate due to diffuse breath sounds - GI/Abdominal Exam GI & Abdominal Exam: Soft, Tenderness (mild diffuse tenderness, most prominent along epigastric region and between LUQ/LLQ), Normal Bowel Sounds. absent: Distended, Firm, Rigid, Diminished Bowel Sounds, Hyperactive Bowel Sounds, Hypoactive Bowel Sounds - Extremities Exam Extremities Exam: Pedal Edema (+1 pitting edema in LLE, no pitting edema in RLE) , Tenderness (mild tenderness along LLE, most prominently medial and inferior to L knee). absent: Calf Tenderness Additional comments: No gross erythema or areas of palpable warmth - Neurological Exam Neurological Exam: Alert, Awake - Psychiatric Exam Psychiatric exam: Normal Affect, Normal Mood - Skin Skin Exam: Dry, Intact, Normal Color, Warm Assessment and Plan (1) Cardiac arrhythmia, unspecified Assessment & Plan: EKG 01/29/17: Sinus tachycardia with premature supraventricular complexes at 114 , QTc prolonged at 472, Right bundle branch block, Inferior infarct (age undetermined), Abnormal ECG EKG 02/01/17 Rapid Response #1: Atrial flutter with 2:1 AV conduction at 156, QTc prolonged at 538, Left axis deviation, Pulmonary disease pattern, Right bundle branch block, Abnormal ECG EKG 02/01/17 Rapid Response #2: Wide QRS tachycardia at 162, QRS prolonged at 122 , QTc prolonged at 522, Right bundle branch block, Inferior infarct (age undetermined), Abnormal ECG EKG 02/01/17 PM: Sinus rhythm with premature supraventricular complexes at 122, QRS prolonged at 122, Left axis deviation, Right bundle branch block, T wave abnormality (consider lateral ischemia), Abnormal ECG EKG 02/02/17: Sinus rhythm with premature supraventricular complexes at 72, Left axis deviation, Right bundle branch block, Abnormal ECG Echo 01/30/17: LVEF 51%, Mildly dilated LV, Moderately dilated LA, Mild-mod concentric LVH, RVSP 50-60 mmHg, severe pulm HTN, mild-mod TR Admission trops negative x3 Trops post rapid responses negative x3 -Tachy arrhythmia, AFib with RVR vs AFlutter vs VTach -Resolved on Cardizem Gtt but returned after transfer to floor off gtt, back in ICU now, s/p cardizem and amio gtts -Continue medical management, continue PO Amiodarone 200mg PO daily, Cardizem 60mg PO q6; off Amio and Cardizem gtts -Pending cardiac cath tomorrow as per Dr. Lafleur; as per [facility] Surgery avoid femoral accesses for cardiac cath -Trops post rapid negative x3 -Most recent EKG notable for sinus rhythm with premature supraventricular complexes, frequent complexes notable on bedside tele monitor during exam -Hemodynamically stable, appropriate mentation -Continue close monitoring in ICU, continue telemetry monitoring -Continue additional medication management as per Primary cardio team -Heparin Drip for AC Status: Acute (2) AAA (abdominal aortic aneurysm) Assessment & Plan: -Hx AAA s/p bypass graft with 2 iliac limbs, now 4.4cm on CTA; R iliac limb chronically occluded, Aneurysm of [place] common iliac artery b/l; surgery following -Hemodynamically stable -Continue close monitoring in ICU, continue telemetry monitoring, avoid elevated BPs to prevent worsening/rupture of aneurysm Status: Chronic - Assessment and Plan (Free Text) Assessment: Case discussed with Dr. Rice
[2017-02-06] MEDS: Heparin25000 units/250ml 1/2NS 25,000 UNITS/250 ML BAG IV PRN (09:49)
[2017-02-06] MEDS: Pantoprazole 40 mg EC Tab PO SCH (09:53)
[2017-02-06] MEDS: Omega-3-Acid Ethyl Esters 1 GM Cap PO SCH (09:53)
--- NOTE | 2017-02-06 12:48 | RAD ---
HISTORY: increased crackles COMPARISON: 01/30/2017 FINDINGS: LUNGS: Increased markings/atelectasis left lower lobe. PLEURA: No significant pleural effusion identified, no pneumothorax apparent. CARDIOVASCULAR: No radiographic findings to suggest acute or significant cardiovascular disease. Venous access catheter in stable, satisfactory position. OSSEOUS STRUCTURES: No significant abnormalities. VISUALIZED UPPER ABDOMEN: Normal. OTHER FINDINGS: None. IMPRESSION: Retrocardiac infiltrate/ atelectasis a new finding compared to the prior study.
--- NOTE | 2017-02-06 14:06 | CP.PCM.PN ---
<Ellen Salguero - Last Filed: 02/06/17 14:07> Subjective - Date & Time of Evaluation Date of Evaluation: 02/06/17 Time of Evaluation: 14:04 - Subjective Subjective: PGY [address] Lafleur Pt seen and examined. POx in 90-92% while eating. NAD Objective - Vital Signs/Intake and Output Vital Signs (last 24 hours): Temp Pulse Resp BP Pulse Ox 98.3 F 94 H 16 119/67 93 L 02/06/17 08:00 02/06/17 11:00 02/06/17 11:00 02/06/17 11:00 02/06/17 11:00 Intake and Output: 02/06/17 02/06/17 06:59 18:59 Intake Total 1278 636 Output Total 600 350 Balance 678 286 - Medications Medications: Current Medications Acetylcysteine (Acetylcysteine 20%) 4 ml INH RQ6 [facility] Last Admin: 02/06/17 08:06 Dose: 4 ml Acetylcysteine (Acetylcysteine 20%) 6 ml PO Q12H [facility] Last Admin: 02/06/17 06:30 Dose: 6 ml Albuterol/Ipratropium (Duoneb 3 Mg/0.5 Mg (3 Ml) Ud) 3 ml INH RQ6 [facility] Last Admin: 02/06/17 08:06 Dose: 3 ml Alprazolam (Xanax) 0.5 mg PO TID PRN PRN Reason: Anxiety Amiodarone HCl (Cordarone) 200 mg PO DAILY [facility] Last Admin: 02/06/17 09:53 Dose: 200 mg Budesonide (Pulmicort Respules) 0.25 mg INH RQ12 [facility] Last Admin: 02/06/17 08:06 Dose: 0.25 mg Diltiazem HCl (Cardizem) 60 mg PO Q6H [facility] Last Admin: 02/06/17 08:12 Dose: 60 mg Heparin Sodium/Sodium Chloride (Heparin 66959 Units/250ml 1/2 Normal Saline) 25 ,000 units in 250 mls @ 0 mls/hr IV .Q0M PRN; Protocol; Per Protocol PRN Reason: PROTOCOL Last Admin: 02/06/17 09:49 Dose: 9 u/kg/hr, 6.042 mls/hr Sodium Chloride (Sodium Chloride 0.9%) 1,000 mls @ 60 mls/hr IV .[id number] [facility] Last Admin: 02/06/17 08:44 Dose: 60 mls/hr Insulin Human Regular (Novolin R) 0 unit SC ACHS [facility] PRN Reason: Protocol Last Admin: 02/06/17 11:45 Dose: 8 unit Methylprednisolone (Solu-Medrol) 40 mg IVP Q8H [facility] Last Admin: 02/06/17 09:53 Dose: 40 mg [id number]-1-[id number] Ethyl Esters (Lovaza) 1 gm PO DAILY [facility] Last Admin: 02/06/17 09:53 Dose: 1 gm Ondansetron HCl (Zofran Inj) 4 mg IVP Q6 PRN PRN Reason: Nausea/Vomiting Pantoprazole Sodium (Protonix Ec Tab) 40 mg PO DAILY [facility] Last Admin: 02/06/17 09:53 Dose: 40 mg Promethazine HCl/Dextromethorphan (Phenergan Dm Syrup) 5 ml PO Q6H PRN PRN Reason: Cough Last Admin: 02/05/17 15:56 Dose: 5 ml Repaglinide (Prandin) 1 mg PO TIDAC [facility] Last Admin: 02/06/17 11:45 Dose: 1 mg Rivaroxaban (Xarelto) 10 mg PO DAILY [facility] Last Admin: 02/01/17 10:00 Dose: 10 mg Scopolamine (Transderm-Scop) 1 patch TD Q3D [facility] Last Admin: 02/03/17 17:58 Dose: 1 patch Tamsulosin HCl (Flomax) 0.4 mg PO DAILY [facility] Last Admin: 02/06/17 09:53 Dose: 0.4 mg Tiotropium [place] (Spiriva) 18 mcg INH RQ24 [facility] Last Admin: 02/06/17 08:06 Dose: 18 mcg - Labs Labs: 02/06/17 06:35 02/06/17 06:35 PT 11.7 SECONDS (9.7-12.2) 01/31/17 07:49 INR 1.0 01/31/17 07:49 APTT 67 SECONDS (21-34) H 02/06/17 06:35 - Constitutional Appears: No Acute Distress - Head Exam Head Exam: ATRAUMATIC, NORMOCEPHALIC - Eye Exam Eye Exam: EOMI, Normal appearance, PERRL Pupil Exam: NORMAL ACCOMODATION - ENT Exam ENT Exam: Mucous Membranes Moist - Neck Exam Additional comments: No pounding JVD, but pt is sitting at 60% eating - Respiratory Exam Respiratory Exam: Rales Additional comments: bronchial vesicular sounds in all lung currie - Cardiovascular Exam Cardiovascular Exam: Irregular Rhythm, +S1, +S2 - GI/Abdominal Exam GI & Abdominal Exam: Soft, Normal Bowel Sounds. absent: Guarding, Rigid, Tenderness - Back Exam Back Exam: absent: CVA tenderness (L), CVA tenderness (R) - Neurological Exam Neurological Exam: Alert, Awake, Oriented x3 - Psychiatric Exam Psychiatric exam: Normal Affect, Normal Mood - Skin Skin Exam: Dry, Warm Assessment and Plan - Assessment and Plan (Free Text) Plan: 81 M with PMH of paroxysmal afib on Eliquis, DM2, COPD/ex-smoker of 50pack-yr, Hyperlipidemia, CKD 3, Abdominal Aortic Aneurysm with Stent, presents to the ED for complaint of SOB and COPD exacernation. CP was 2 months ago and pt could not articulate events leading to CP. SOB most likely from severe pulm HTN shown on echocardiogram. Pt has a Right hydronephrosis (01/30) due to right iliac anuerism. Pt is s/p [employer] for rapid a-fib that turned wide complex tachycardia while on cardizem gtt. VSS. Pt AAOx3, NAD. Cardiac cath cancelled last week for wheezing. Resume heparin gtt. Over the weekend, pt was upgraded to ICU for recurrence of afib associated with hypotension to SBP 90s. He was treated by Amio/Cardizem gtt. He was downgraded to telemetry. Today, his CXR looks more venous congested, 92% on 4L. A-fib RVR, wide-complex tachycardia - resolved QT prolong - s/p Cardizem/amio gtt - amiodarone 200 PO daily; cardizem 60 q6 - resume heparin gtt - consulted Dr. Rice for elective catherter ablation - CANDACE negative x 3 - Pending today EKG Hx CAD - EKG: Sinus tachy 114. SVC. RBBB. Q waves in inferior leads. 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 Lafleur <Maxi Lafleur - Last Filed: 02/07/17 07:09> Objective - Vital Signs/Intake and Output Vital Signs (last 24 hours): Temp Pulse Resp BP Pulse Ox 98.2 F 87 20 129/67 95 02/07/17 04:00 02/07/17 04:00 02/07/17 04:00 02/07/17 04:00 02/07/17 04:00 Intake and Output: 02/07/17 02/07/17 06:59 18:59 Intake Total 1394 Output Total 750 Balance 644 - Medications Medications: Current Medications Acetylcysteine (Acetylcysteine 20%) 4 ml INH RQ6 [facility] Last Admin: 02/07/17 01:53 Dose: Not Given Acetylcysteine (Acetylcysteine 20%) 6 ml PO Q12H [facility] Last Admin: 02/07/17 05:43 Dose: 6 ml Albuterol/Ipratropium (Duoneb 3 Mg/0.5 Mg (3 Ml) Ud) 3 ml INH RQ6 [facility] Last Admin: 02/07/17 01:53 Dose: Not Given Alprazolam (Xanax) 0.5 mg PO TID PRN PRN Reason: Anxiety Amiodarone HCl (Cordarone) 200 mg PO DAILY [facility] Last Admin: 02/06/17 09:53 Dose: 200 mg Aspirin (Aspirin Chewable) 81 mg PO DAILY [facility] Budesonide (Pulmicort Respules) 0.25 mg INH RQ12 [facility] Last Admin: 02/06/17 19:42 Dose: Not Given Diltiazem HCl (Cardizem) 60 mg PO Q6H [facility] Last Admin: 02/07/17 03:04 Dose: 60 mg Sodium Chloride (Sodium Chloride 0.9%) 1,000 mls @ 60 mls/hr IV .[id number] [facility] Last Admin: 02/07/17 01:48 Dose: 60 mls/hr Insulin Human Regular (Novolin R) 0 unit SC ACHS [facility] PRN Reason: Protocol Last Admin: 02/06/17 16:22 Dose: 4 unit Methylprednisolone (Solu-Medrol) 40 mg IVP Q8H [facility] Last Admin: 02/07/17 01:48 Dose: 40 mg Zymmh-1-[id number] Ethyl Esters (Lovaza) 1 gm PO DAILY [facility] Last Admin: 02/06/17 09:53 Dose: 1 gm Ondansetron HCl (Zofran Inj) 4 mg IVP Q6 PRN PRN Reason: Nausea/Vomiting Pantoprazole Sodium (Protonix Ec Tab) 40 mg PO DAILY [facility] Last Admin: 02/06/17 09:53 Dose: 40 mg Promethazine HCl/Dextromethorphan (Phenergan Dm Syrup) 5 ml PO Q6H PRN PRN Reason: Cough Last Admin: 02/05/17 15:56 Dose: 5 ml Repaglinide (Prandin) 1 mg PO TIDAC [facility] Last Admin: 02/06/17 16:23 Dose: 1 mg Rivaroxaban (Xarelto) 10 mg PO DAILY [facility] Last Admin: 02/01/17 10:00 Dose: 10 mg Rosuvastatin Calcium (Crestor) 10 mg PO HS [facility] Scopolamine (Transderm-Scop) 1 patch TD Q3D [facility] Last Admin: 02/06/17 18:04 Dose: 1 patch Tamsulosin HCl (Flomax) 0.4 mg PO DAILY [facility] Last Admin: 02/06/17 09:53 Dose: 0.4 mg Tiotropium [place] (Spiriva) 18 mcg INH RQ24 [facility] Last Admin: 02/06/17 08:06 Dose: 18 mcg - Labs Labs: 02/06/17 06:35 02/06/17 06:35 PT 11.7 SECONDS (9.7-12.2) 01/31/17 07:49 INR 1.0 01/31/17 07:49 APTT 67 SECONDS (21-34) H 02/06/17 06:35 Assessment and Plan - Assessment and Plan (Free Text) Assessment: Patient seen and evaluated with the medical terminologist Plan of care as per the note. Thank you
--- NOTE | 2017-02-06 16:37 | CP.PCM.PN ---
Subjective - Date & Time of Evaluation Date of Evaluation: 02/06/17 Time of Evaluation: 11:00 - Subjective Subjective: Patient seen and examined. The patient is lying comfortably in no acute distress and is off Cardizem drip Patient seen by EP On by mouth amiodarone Shortness of breath on minimal exertion. Wheezing Objective - Vital Signs/Intake and Output Vital Signs (last 24 hours): Temp Pulse Resp BP Pulse Ox 98.4 F 70 16 116/73 92 L 02/06/17 16:00 02/06/17 16:00 02/06/17 16:00 02/06/17 16:00 02/06/17 16:00 Intake and Output: 02/06/17 02/06/17 06:59 18:59 Intake Total 1278 1080 Output Total 600 450 Balance 678 630 - Medications Medications: Current Medications Acetylcysteine (Acetylcysteine 20%) 4 ml INH RQ6 [facility] Last Admin: 02/06/17 14:37 Dose: 4 ml Acetylcysteine (Acetylcysteine 20%) 6 ml PO Q12H [facility] Last Admin: 02/06/17 06:30 Dose: 6 ml Albuterol/Ipratropium (Duoneb 3 Mg/0.5 Mg (3 Ml) Ud) 3 ml INH RQ6 [facility] Last Admin: 02/06/17 14:37 Dose: 3 ml Alprazolam (Xanax) 0.5 mg PO TID PRN PRN Reason: Anxiety Amiodarone HCl (Cordarone) 200 mg PO DAILY [facility] Last Admin: 02/06/17 09:53 Dose: 200 mg Aspirin (Aspirin Chewable) 81 mg PO DAILY [facility] Budesonide (Pulmicort Respules) 0.25 mg INH RQ12 [facility] Last Admin: 02/06/17 08:06 Dose: 0.25 mg Diltiazem HCl (Cardizem) 60 mg PO Q6H [facility] Last Admin: 02/06/17 14:04 Dose: 60 mg Sodium Chloride (Sodium Chloride 0.9%) 1,000 mls @ 60 mls/hr IV .[id number] [facility] Last Admin: 02/06/17 08:44 Dose: 60 mls/hr Insulin Human Regular (Novolin R) 0 unit SC ACHS [facility] PRN Reason: Protocol Last Admin: 02/06/17 16:22 Dose: 4 unit Methylprednisolone (Solu-Medrol) 40 mg IVP Q8H [facility] Last Admin: 02/06/17 09:53 Dose: 40 mg [id number]-2-[id number] Ethyl Esters (Lovaza) 1 gm PO DAILY [facility] Last Admin: 02/06/17 09:53 Dose: 1 gm Ondansetron HCl (Zofran Inj) 4 mg IVP Q6 PRN PRN Reason: Nausea/Vomiting Pantoprazole Sodium (Protonix Ec Tab) 40 mg PO DAILY [facility] Last Admin: 02/06/17 09:53 Dose: 40 mg Promethazine HCl/Dextromethorphan (Phenergan Dm Syrup) 5 ml PO Q6H PRN PRN Reason: Cough Last Admin: 02/05/17 15:56 Dose: 5 ml Repaglinide (Prandin) 1 mg PO TIDAC [facility] Last Admin: 02/06/17 16:23 Dose: 1 mg Rivaroxaban (Xarelto) 10 mg PO DAILY [facility] Last Admin: 02/01/17 10:00 Dose: 10 mg Rosuvastatin Calcium (Crestor) 10 mg PO [facility] Scopolamine (Transderm-Scop) 1 patch TD Q3D [facility] Last Admin: 02/03/17 17:58 Dose: 1 patch Tamsulosin HCl (Flomax) 0.4 mg PO DAILY [facility] Last Admin: 02/06/17 09:53 Dose: 0.4 mg Tiotropium [place] (Spiriva) 18 mcg INH RQ24 [facility] Last Admin: 02/06/17 08:06 Dose: 18 mcg - Labs Labs: 02/06/17 06:35 02/06/17 06:35 PT 11.7 SECONDS (9.7-12.2) 01/31/17 07:49 INR 1.0 01/31/17 07:49 APTT 67 SECONDS (21-34) H 02/06/17 06:35 - Constitutional Appears: No Acute Distress - Head Exam Head Exam: ATRAUMATIC, NORMOCEPHALIC - Eye Exam Eye Exam: Normal appearance - ENT Exam ENT Exam: Mucous Membranes Moist - Neck Exam Neck Exam: Full ROM, Normal Inspection - Respiratory Exam Respiratory Exam: Rhonchi - Cardiovascular Exam Cardiovascular Exam: Irregular Rhythm - GI/Abdominal Exam GI & Abdominal Exam: Soft, Normal Bowel Sounds Assessment and Plan (1) COPD with exacerbation Assessment & Plan: Continue IV steroids, nebulizer treatment and budesonide Status: Acute (2) Atrial fibrillation with rapid ventricular response Status: Acute
[2017-02-06] MEDS: Scopolamine 1.5 mg/24 hr Patch TD SCH (18:04)
--- NOTE | 2017-02-06 19:42 | CP.PCM.PN ---
Subjective - Date & Time of Evaluation Date of Evaluation: 02/06/17 Time of Evaluation: 19:00 - Subjective Subjective: Patient still short of breath; coughing; reports no improvement; Objective - Vital Signs/Intake and Output Vital Signs (last 24 hours): Temp Pulse Resp BP Pulse Ox 97.4 F L 72 20 104/58 L 95 02/06/17 17:33 02/06/17 17:33 02/06/17 17:33 02/06/17 17:33 02/06/17 17:33 Intake and Output: 02/06/17 02/07/17 18:59 06:59 Intake Total 1080 Output Total 450 Balance 630 - Medications Medications: Current Medications Acetylcysteine (Acetylcysteine 20%) 4 ml INH RQ6 [facility] Last Admin: 02/06/17 14:37 Dose: 4 ml Acetylcysteine (Acetylcysteine 20%) 6 ml PO Q12H [facility] Last Admin: 02/06/17 06:30 Dose: 6 ml Albuterol/Ipratropium (Duoneb 3 Mg/0.5 Mg (3 Ml) Ud) 3 ml INH RQ6 [facility] Last Admin: 02/06/17 14:37 Dose: 3 ml Alprazolam (Xanax) 0.5 mg PO TID PRN PRN Reason: Anxiety Amiodarone HCl (Cordarone) 200 mg PO DAILY [facility] Last Admin: 02/06/17 09:53 Dose: 200 mg Aspirin (Aspirin Chewable) 81 mg PO DAILY [facility] Budesonide (Pulmicort Respules) 0.25 mg INH RQ12 [facility] Last Admin: 02/06/17 08:06 Dose: 0.25 mg Diltiazem HCl (Cardizem) 60 mg PO Q6H [facility] Last Admin: 02/06/17 14:04 Dose: 60 mg Sodium Chloride (Sodium Chloride 0.9%) 1,000 mls @ 60 mls/hr IV .[id number] [facility] Last Admin: 02/06/17 08:44 Dose: 60 mls/hr Insulin Human Regular (Novolin R) 0 unit SC ACHS [facility] PRN Reason: Protocol Last Admin: 02/06/17 16:22 Dose: 4 unit Methylprednisolone (Solu-Medrol) 40 mg IVP Q8H [facility] Last Admin: 02/06/17 18:09 Dose: 40 mg Frtiq-7-Jflh Ethyl Esters (Lovaza) 1 gm PO DAILY [facility] Last Admin: 02/06/17 09:53 Dose: 1 gm Ondansetron HCl (Zofran Inj) 4 mg IVP Q6 PRN PRN Reason: Nausea/Vomiting Pantoprazole Sodium (Protonix Ec Tab) 40 mg PO DAILY [facility] Last Admin: 02/06/17 09:53 Dose: 40 mg Promethazine HCl/Dextromethorphan (Phenergan Dm Syrup) 5 ml PO Q6H PRN PRN Reason: Cough Last Admin: 02/05/17 15:56 Dose: 5 ml Repaglinide (Prandin) 1 mg PO TIDAC [facility] Last Admin: 02/06/17 16:23 Dose: 1 mg Rivaroxaban (Xarelto) 10 mg PO DAILY [facility] Last Admin: 02/01/17 10:00 Dose: 10 mg Rosuvastatin Calcium (Crestor) 10 mg PO HS [facility] Scopolamine (Transderm-Scop) 1 patch TD Q3D [facility] Last Admin: 02/06/17 18:04 Dose: 1 patch Tamsulosin HCl (Flomax) 0.4 mg PO DAILY [facility] Last Admin: 02/06/17 09:53 Dose: 0.4 mg Tiotropium [place] (Spiriva) 18 mcg INH RQ24 [facility] Last Admin: 02/06/17 08:06 Dose: 18 mcg - Labs Labs: 02/06/17 06:35 02/06/17 06:35 PT 11.7 SECONDS (9.7-12.2) 01/31/17 07:49 INR 1.0 01/31/17 07:49 APTT 67 SECONDS (21-34) H 02/06/17 06:35 - Constitutional Appears: No Acute Distress - Head Exam Head Exam: NORMAL INSPECTION - Eye Exam Eye Exam: absent: Scleral icterus - ENT Exam ENT Exam: Mucous Membranes Moist - Respiratory Exam Additional comments: Coarse exp wheezes diffusely; - Cardiovascular Exam Additional comments: muffled heart sounds; - GI/Abdominal Exam GI & Abdominal Exam: Soft. absent: Distended, Tenderness - Extremities Exam Additional comments: Mild L lower leg edema; - Neurological Exam Neurological Exam: Alert, Awake - Psychiatric Exam Psychiatric exam: Normal Affect, Normal Mood - Skin Skin Exam: Normal Color, Warm. absent: Cyanosis Assessment and Plan (1) Acute renal failure Assessment & Plan: Resolved; pre-renal etiology; is pre-disposed to fluctuating serum creatinine from hemodynamic changes; need to avoid hypotension; Status: Acute (2) Renal insufficiency Assessment & Plan: Atrophic R kidney as well likely underlying renovascular disease; on gentle isotonic saline (NS at 60 cc/hr) and acetylcysteine 1200 mg po q12h in preparation for cardiac cath tomorow as he is at increased risk for contrast induced nephropathy; Status: Acute (3) Pulmonary hypertension Assessment & Plan: Per echo report, likely secondary to COPD; holding lasix for now due to low BP and is preparation for cath; can restart once hemodynamically more stable; Status: Acute (4) Hypertension Assessment & Plan: Low/normal BP; transitioned to PO cardizem 60 mg q6h for afib w/ RVR; decreased BP will translate to decreased renal perfusion but may need to tolerate this in order to keep heart rate controlled; Status: Chronic
[2017-02-07] MEDS: MethylPREDNISolone 40 mg Vial IVP SCH ×3 (01:48→17:51)
[2017-02-07] MEDS: Sodium Chloride 0.9% 1,000 ML IV SCH (01:48)
[2017-02-07] MEDS: Acetylcysteine 20% Inhal Soln (4ml) INH SCH ×4 (01:53→20:18)
[2017-02-07] MEDS: Albuterol-Ipratrop 3 mg / 0.5 (3 ml) UD INH SCH ×4 (01:53→20:18)
[2017-02-07] MEDS: Acetylcysteine 20% Inhal Soln (4ml) PO SCH ×2 (05:43→17:51)
[2017-02-07 07:31] LABS: BASO % 0.1 % (0.0-2.0); HEMATOCRIT 27.5 % (35.0-51.0); LYMPH # 0.3 K/uL (1.0-4.3); LYMPH % 2.4 % (20.0-40.0); MEAN CELL VOLUME 87.6 fL (80.0-94.0); MEAN CORPUSCULAR HEMOGLOBIN 29.2 pg (27.0-31.0); MEAN CORPUSCULAR HGB CONC 33.4 g/dL (33.0-37.0); MEAN PLATELET VOLUME 9.2 fL (7.2-11.7); MONO # 0.3 K/uL (0.0-0.8); MONO % 2.6 % (0.0-10.0); NRBC % 0.2 % (0.0-2.0); PLATELET COUNT 138 K/uL (130-400); RED CELL DISTRIBUTION WIDTH 16.3 % (11.5-14.5); WHITE BLOOD COUNT 10.6 K/uL (4.8-10.8)
[2017-02-07 07:38] LABS: POTASSIUM 4.7 mmol/L (3.6-5.2)
[2017-02-07 07:40] LABS: BILIRUBIN,TOTAL 1.1 mg/dL (0.2-1.3)
[2017-02-07 07:41] LABS: ALB/GLOB RATIO 1.2 (1.0-2.1); TOTAL PROTEIN 5.2 g/dL (6.3-8.3)
[2017-02-07 07:42] LABS: CALCIUM 7.2 mg/dl (8.6-10.4)
[2017-02-07] MEDS: (Novolin R) Insulin Human Regular 100 units/ml vial SC SCH ×4 (08:00→21:21)
[2017-02-07] MEDS: Budesonide 0.25 mg/2 ml Inhal Susp UD INH SCH ×2 (08:03→20:18)
[2017-02-07] MEDS: Tiotropium 18 mcg Cap For Inhalation INH SCH (08:03)
[2017-02-07 09:11] LABS: NEUTROPHIL 90 % (50-75); TOTAL CELLS COUNTED 100
[2017-02-07 09:12] LABS: LARGE PLATELETS PRESENT
[2017-02-07] MEDS: Pantoprazole 40 mg EC Tab PO SCH (09:40)
[2017-02-07] MEDS: Omega-3-Acid Ethyl Esters 1 GM Cap PO SCH (09:40)
--- NOTE | 2017-02-07 09:40 | CP.PCM.PN ---
Subjective - Date & Time of Evaluation Date of Evaluation: 02/07/17 Time of Evaluation: 07:22 - Subjective Subjective: EP-Cardiology Progress Note Dr. Rice Patient seen and examined at bedside on the floor. No acute events overnight. He reports feeling a little better today, with improvement in his chest pain and respirations. Continues to have intermittent wet cough, still feels some SOB despite being on 4L NC. LLE pain persists but also improved. Denies pain with respiration, dizziness, yellow/green sputum production with cough. Objective - Vital Signs/Intake and Output Vital Signs (last 24 hours): Temp Pulse Resp BP Pulse Ox 97.3 F L 86 20 108/70 96 02/07/17 07:10 02/07/17 07:10 02/07/17 07:10 02/07/17 07:10 02/07/17 07:10 Intake and Output: 02/07/17 02/07/17 06:59 18:59 Intake Total 1394 Output Total 750 Balance 644 - Medications Medications: Current Medications Acetylcysteine (Acetylcysteine 20%) 4 ml INH RQ6 [facility] Last Admin: 02/07/17 08:03 Dose: 4 ml Acetylcysteine (Acetylcysteine 20%) 6 ml PO Q12H [facility] Last Admin: 02/07/17 05:43 Dose: 6 ml Albuterol/Ipratropium (Duoneb 3 Mg/0.5 Mg (3 Ml) Ud) 3 ml INH RQ6 [facility] Last Admin: 02/07/17 08:03 Dose: 3 ml Alprazolam (Xanax) 0.5 mg PO TID PRN PRN Reason: Anxiety Amiodarone HCl (Cordarone) 200 mg PO DAILY [facility] Last Admin: 02/06/17 09:53 Dose: 200 mg Aspirin (Aspirin Chewable) 81 mg PO DAILY [facility] Budesonide (Pulmicort Respules) 0.25 mg INH RQ12 [facility] Last Admin: 02/07/17 08:03 Dose: 0.25 mg Diltiazem HCl (Cardizem) 60 mg PO Q6H [facility] Last Admin: 02/07/17 03:04 Dose: 60 mg Sodium Chloride (Sodium Chloride 0.9%) 1,000 mls @ 60 mls/hr IV .[id number] [facility] Last Admin: 02/07/17 01:48 Dose: 60 mls/hr Insulin Human Regular (Novolin R) 0 unit SC ACHS [facility] PRN Reason: Protocol Last Admin: 02/07/17 08:00 Dose: Not Given Methylprednisolone (Solu-Medrol) 40 mg IVP Q8H [facility] Last Admin: 02/07/17 01:48 Dose: 40 mg Zlygq-8-Smoo Ethyl Esters (Lovaza) 1 gm PO DAILY [facility] Last Admin: 02/06/17 09:53 Dose: 1 gm Ondansetron HCl (Zofran Inj) 4 mg IVP Q6 PRN PRN Reason: Nausea/Vomiting Pantoprazole Sodium (Protonix Ec Tab) 40 mg PO DAILY [facility] Last Admin: 02/06/17 09:53 Dose: 40 mg Promethazine HCl/Dextromethorphan (Phenergan Dm Syrup) 5 ml PO Q6H PRN PRN Reason: Cough Last Admin: 02/05/17 15:56 Dose: 5 ml Repaglinide (Prandin) 1 mg PO TIDAC [facility] Last Admin: 02/07/17 08:00 Dose: Not Given Rivaroxaban (Xarelto) 10 mg PO DAILY [facility] Last Admin: 02/01/17 10:00 Dose: 10 mg Rosuvastatin Calcium (Crestor) 10 mg PO HS [facility] Scopolamine (Transderm-Scop) 1 patch TD Q3D [facility] Last Admin: 02/06/17 18:04 Dose: 1 patch Tamsulosin HCl (Flomax) 0.4 mg PO DAILY [facility] Last Admin: 02/06/17 09:53 Dose: 0.4 mg Tiotropium Candor (Spiriva) 18 mcg INH RQ24 [facility] Last Admin: 02/07/17 08:03 Dose: 18 mcg - Labs Labs: 02/07/17 07:18 02/07/17 07:18 PT 11.4 SECONDS (9.7-12.2) 02/07/17 07:18 INR 1.0 02/07/17 07:18 APTT 43 SECONDS (21-34) H D 02/07/17 07:18 - Additional Findings Additional findings: - Constitutional Appears: Non-toxic, No Acute Distress, Chronically Ill - Head Exam Head Exam: ATRAUMATIC, NORMAL INSPECTION, NORMOCEPHALIC - Eye Exam Eye Exam: EOMI, Normal appearance. absent: Conjunctival injection, Scleral icterus Pupil Exam: absent: Irregular, Unequal - ENT Exam ENT Exam: Mucous Membranes Moist. absent: Mucous Membranes Dry - Respiratory Exam Respiratory Exam: Rhonchi (diffuse rhonci in all auscultated currie during inspiration and expiration, some improvement over exam yesterday), Intermittent wet cough throughout exam. absent: Chest Wall Tenderness, Accessory Muscle Use , Clear to Ausculation Bilateral, Respiratory Distress, Stridor - Cardiovascular Exam Cardiovascular Exam: REGULAR RATE & RHYTHM, +S1/+S2 (Very difficult to auscultate due to diffuse breath sounds) - GI/Abdominal Exam GI & Abdominal Exam: Soft, Tenderness (mild diffuse tenderness), Normal Bowel Sounds. absent: Distended, Firm, Rigid, Diminished Bowel Sounds, Hyperactive Bowel Sounds, Hypoactive Bowel Sounds - Extremities Exam Extremities Exam: Pedal Edema (+1 pitting edema in LLE, no pitting edema in RLE) , Tenderness (mild tenderness along LLE, most prominently medial and inferior to L knee, improved over yesterday). absent: Calf Tenderness, Gross erythema, Areas of palpable warmth - Neurological Exam Neurological Exam: Alert, Awake, Following commands appropriately, some spontaneous movement of all extremities - Psychiatric Exam Psychiatric exam: Normal Affect, Normal Mood - Skin Skin Exam: Dry, Intact, Normal Color, Warm Assessment and Plan (1) Cardiac arrhythmia, unspecified Assessment & Plan: EKG 01/29/17: Sinus tachycardia with premature supraventricular complexes at 114 , QTc prolonged at 472, Right bundle branch block, Inferior infarct (age undetermined), Abnormal ECG EKG 02/01/17 Rapid Response #1: Atrial flutter with 2:1 AV conduction at 156, QTc prolonged at 538, Left axis deviation, Pulmonary disease pattern, Right bundle branch block, Abnormal ECG EKG 02/01/17 Rapid Response #2: Wide QRS tachycardia at 162, QRS prolonged at 122 , QTc prolonged at 522, Right bundle branch block, Inferior infarct (age undetermined), Abnormal ECG EKG 02/01/17 PM: Sinus rhythm with premature supraventricular complexes at 122, QRS prolonged at 122, Left axis deviation, Right bundle branch block, T wave abnormality (consider lateral ischemia), Abnormal ECG EKG 02/02/17: Sinus rhythm with premature supraventricular complexes at 72, Left axis deviation, Right bundle branch block, Abnormal ECG EKG 02/06/17: Sinus rhythm with premature atrial complexes at 76, Low voltage QRS , Right bundle branch block, Abnormal ECG Echo 01/30/17: LVEF 51%, Mildly dilated LV, Moderately dilated LA, Mild-mod concentric LVH, RVSP 50-60 mmHg, severe pulm HTN, mild-mod TR Admission trops negative x3 Trops post rapid responses negative x3 -Tachy arrhythmia, AFib with RVR vs AFlutter vs VTach -Resolved on Cardizem Gtt but returned after transfer to floor off gtt, back in ICU now, s/p cardizem and amio gtts -Continue medical management, continue PO Amiodarone 200mg PO daily, Cardizem 60mg PO q6; off Amio and Cardizem gtts -Pending cardiac cath today as per Dr. Lafleur; as per [facility] avoid femoral accesses for cardiac cath -Trops post rapid negative x3 -Most recent EKG notable for sinus rhythm with premature supraventricular complexes, frequent complexes notable on bedside tele monitor during exam -Hemodynamically stable, appropriate mentation -Continue telemetry monitoring -Continue additional medication management as per Primary cardio team -Heparin Drip held for cardiac cath Status: Acute (2) AAA (abdominal aortic aneurysm) Assessment & Plan: -Hx AAA s/p bypass graft with 2 iliac limbs, now 4.4cm on CTA; R iliac limb chronically occluded, Aneurysm of algaaciq common iliac artery b/l; surgery following -Hemodynamically stable -Continue close monitoring in ICU, continue telemetry monitoring, avoid elevated BPs to prevent worsening/rupture of aneurysm Status: Chronic - Assessment and Plan (Free Text) Assessment: Case discussed with Dr. Rice.
[2017-02-07] MEDS ORDERED: Midazolam 2 MG/2 ML VIAL ONE (11:03)
[2017-02-07] MEDS ORDERED: Iodixanol 320 MG/ML 100 ML BOTTLE IV ONE ×2 (11:05→12:37)
[2017-02-07] MEDS ORDERED: Iodixanol 320 MG/ML 200 ML BOTTLE IV ONE ×2 (11:05→11:26)
[2017-02-07] MEDS ORDERED: Nitroglycerin 50mg in D5W 50 MG/250 ML BOTTLE IV ONE (11:05)
[2017-02-07] MEDS ORDERED: Sodium Chloride 0.9% 1,000 ML IV SCH (13:00)
--- NOTE | 2017-02-07 17:20 | CP.PCM.PN ---
Subjective - Date & Time of Evaluation Date of Evaluation: 02/07/17 Time of Evaluation: 16:00 - Subjective Subjective: Patient seen and examined. Breathing and cough much improved with no wheezing, Objective - Vital Signs/Intake and Output Vital Signs (last 24 hours): Temp Pulse Resp BP Pulse Ox 97.5 F L 79 20 113/62 96 02/07/17 15:00 02/07/17 15:00 02/07/17 15:00 02/07/17 15:00 02/07/17 15:00 Intake and Output: 02/07/17 02/07/17 06:59 18:59 Intake Total 1394 Output Total 750 Balance 644 - Medications Medications: Current Medications Acetylcysteine (Acetylcysteine 20%) 4 ml INH RQ6 [facility] Last Admin: 02/07/17 13:26 Dose: Not Given Acetylcysteine (Acetylcysteine 20%) 6 ml PO Q12H [facility] Last Admin: 02/07/17 05:43 Dose: 6 ml Albuterol/Ipratropium (Duoneb 3 Mg/0.5 Mg (3 Ml) Ud) 3 ml INH RQ6 [facility] Last Admin: 02/07/17 13:26 Dose: Not Given Alprazolam (Xanax) 0.5 mg PO TID PRN PRN Reason: Anxiety Amiodarone HCl (Cordarone) 200 mg PO DAILY [facility] Last Admin: 02/07/17 09:40 Dose: Not Given Aspirin (Aspirin Chewable) 81 mg PO DAILY [facility] Last Admin: 02/07/17 09:39 Dose: Not Given Budesonide (Pulmicort Respules) 0.25 mg INH RQ12 [facility] Last Admin: 02/07/17 08:03 Dose: 0.25 mg Diltiazem HCl (Cardizem) 60 mg PO Q6H [facility] Last Admin: 02/07/17 13:28 Dose: Not Given Sodium Chloride (Sodium Chloride 0.9%) 1,000 mls @ 50 mls/hr IV .Q20H [facility] Stop: 02/08/17 05:00 Insulin Human Regular (Novolin R) 0 unit SC ACHS [facility] PRN Reason: Protocol Last Admin: 02/07/17 12:00 Dose: Not Given Methylprednisolone (Solu-Medrol) 40 mg IVP Q8H [facility] Last Admin: 02/07/17 09:39 Dose: 40 mg Eenhp-3-Nbtz Ethyl Esters (Lovaza) 1 gm PO DAILY [facility] Last Admin: 02/07/17 09:40 Dose: Not Given Ondansetron HCl (Zofran Inj) 4 mg IVP Q6 PRN PRN Reason: Nausea/Vomiting Pantoprazole Sodium (Protonix Ec Tab) 40 mg PO DAILY [facility] Last Admin: 02/07/17 09:40 Dose: Not Given Promethazine HCl/Dextromethorphan (Phenergan Dm Syrup) 5 ml PO Q6H PRN PRN Reason: Cough Last Admin: 02/05/17 15:56 Dose: 5 ml Repaglinide (Prandin) 1 mg PO TIDAC [facility] Last Admin: 02/07/17 12:05 Dose: Not Given Rivaroxaban (Xarelto) 10 mg PO DAILY [facility] Last Admin: 02/01/17 10:00 Dose: 10 mg Rosuvastatin Calcium (Crestor) 10 mg PO HS [facility] Scopolamine (Transderm-Scop) 1 patch TD Q3D [facility] Last Admin: 02/06/17 18:04 Dose: 1 patch Tamsulosin HCl (Flomax) 0.4 mg PO DAILY [facility] Last Admin: 02/07/17 09:40 Dose: Not Given Tiotropium Ant[place] (Spiriva) 18 mcg INH RQ24 [facility] Last Admin: 02/07/17 08:03 Dose: 18 mcg - Labs Labs: 02/07/17 07:18 02/07/17 07:18 PT 11.4 SECONDS (9.7-12.2) 02/07/17 07:18 INR 1.0 02/07/17 07:18 APTT 43 SECONDS (21-34) H D 02/07/17 07:18 - Head Exam Head Exam: ATRAUMATIC, NORMOCEPHALIC - Eye Exam Eye Exam: Normal appearance - ENT Exam ENT Exam: Mucous Membranes Moist - Respiratory Exam Respiratory Exam: Clear to Ausculation Bilateral - Cardiovascular Exam Cardiovascular Exam: Irregular Rhythm - GI/Abdominal Exam GI & Abdominal Exam: Soft, Normal Bowel Sounds - Extremities Exam Extremities Exam: Normal Inspection Assessment and Plan (1) COPD with exacerbation Status: Acute (2) Atrial fibrillation with rapid ventricular response Status: Acute
--- NOTE | 2017-02-07 19:57 | CP.PCM.PN ---
Subjective - Date & Time of Evaluation Date of Evaluation: 02/07/17 Time of Evaluation: 19:45 - Subjective Subjective: Patient s/p cardiac cath today; reports some improvement in breathing but still with persistent cough; tolerating diet; Objective - Vital Signs/Intake and Output Vital Signs (last 24 hours): Temp Pulse Resp BP Pulse Ox 97.5 F L 79 20 113/62 96 02/07/17 15:00 02/07/17 15:00 02/07/17 15:00 02/07/17 15:00 02/07/17 15:00 - Medications Medications: Current Medications Acetylcysteine (Acetylcysteine 20%) 4 ml INH RQ6 [facility] Last Admin: 02/07/17 13:26 Dose: Not Given Acetylcysteine (Acetylcysteine 20%) 6 ml PO Q12H [facility] Last Admin: 02/07/17 17:51 Dose: 6 ml Albuterol/Ipratropium (Duoneb 3 Mg/0.5 Mg (3 Ml) Ud) 3 ml INH RQ6 [facility] Last Admin: 02/07/17 13:26 Dose: Not Given Alprazolam (Xanax) 0.5 mg PO TID PRN PRN Reason: Anxiety Amiodarone HCl (Cordarone) 200 mg PO DAILY [facility] Last Admin: 02/07/17 09:40 Dose: Not Given Aspirin (Aspirin Chewable) 81 mg PO DAILY [facility] Last Admin: 02/07/17 09:39 Dose: Not Given Budesonide (Pulmicort Respules) 0.25 mg INH RQ12 [facility] Last Admin: 02/07/17 08:03 Dose: 0.25 mg Diltiazem HCl (Cardizem) 60 mg PO Q6H [facility] Last Admin: 02/07/17 13:28 Dose: Not Given Sodium Chloride (Sodium Chloride 0.9%) 1,000 mls @ 50 mls/hr IV .Q20H [facility] Stop: 02/08/17 05:00 Insulin Human Regular (Novolin R) 0 unit SC ACHS [facility] PRN Reason: Protocol Last Admin: 02/07/17 17:50 Dose: 6 unit Methylprednisolone (Solu-Medrol) 40 mg IVP Q8H [facility] Last Admin: 02/07/17 17:51 Dose: 40 mg Eqdim-3-Ocsy Ethyl Esters (Lovaza) 1 gm PO DAILY [facility] Last Admin: 02/07/17 09:40 Dose: Not Given Ondansetron HCl (Zofran Inj) 4 mg IVP Q6 PRN PRN Reason: Nausea/Vomiting Pantoprazole Sodium (Protonix Ec Tab) 40 mg PO DAILY [facility] Last Admin: 02/07/17 09:40 Dose: Not Given Promethazine HCl/Dextromethorphan (Phenergan Dm Syrup) 5 ml PO Q6H PRN PRN Reason: Cough Last Admin: 02/05/17 15:56 Dose: 5 ml Repaglinide (Prandin) 1 mg PO TIDAC [facility] Last Admin: 02/07/17 17:51 Dose: 1 mg Rivaroxaban (Xarelto) 10 mg PO DAILY [facility] Last Admin: 02/01/17 10:00 Dose: 10 mg Rosuvastatin Calcium (Crestor) 10 mg PO HS [facility] Scopolamine (Transderm-Scop) 1 patch TD Q3D [facility] Last Admin: 02/06/17 18:04 Dose: 1 patch Tamsulosin HCl (Flomax) 0.4 mg PO DAILY [facility] Last Admin: 02/07/17 09:40 Dose: Not Given Tiotropium [place] (Spiriva) 18 mcg INH RQ24 [facility] Last Admin: 02/07/17 08:03 Dose: 18 mcg - Labs Labs: 02/07/17 07:18 02/07/17 07:18 PT 11.4 SECONDS (9.7-12.2) 02/07/17 07:18 INR 1.0 02/07/17 07:18 APTT 43 SECONDS (21-34) H D 02/07/17 07:18 - Constitutional Appears: Non-toxic, No Acute Distress - Eye Exam Eye Exam: Normal appearance. absent: Scleral icterus - ENT Exam ENT Exam: Mucous Membranes Moist - Respiratory Exam Additional comments: Diffuse coarse exp wheezes; - Cardiovascular Exam Cardiovascular Exam: REGULAR RHYTHM Additional comments: soft S2; - GI/Abdominal Exam GI & Abdominal Exam: Soft. absent: Distended, Tenderness - Exam Exam: absent: Bladder Distension - Extremities Exam Extremities Exam: Normal Capillary Refill Additional comments: L leg edema; - Neurological Exam Neurological Exam: Alert, Awake - Psychiatric Exam Psychiatric exam: Normal Affect, Normal Mood - Skin Skin Exam: Normal Color, Warm. 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
--- NOTE | 2017-02-07 20:55 | CARD ---
APPROVED REPORT EKG Measurement Heart [id number] <Conclusion> Wide QRS tachycardia Right bundle branch block Inferior infarct, age undetermined Abnormal ECG
--- NOTE | 2017-02-07 20:55 | CARD ---
APPROVED REPORT EKG Measurement Heart [id number] <Conclusion> Sinus rhythm with premature supraventricular complexes Left axis deviation Right bundle branch block T wave abnormality, consider lateral ischemia Abnormal ECG
--- NOTE | 2017-02-07 20:55 | CARD ---
APPROVED REPORT EKG Measurement Heart [id number] <Conclusion> Atrial flutter with 2:1 AV conduction Left axis deviation Pulmonary disease pattern Right bundle branch block Abnormal ECG
--- NOTE | 2017-02-07 21:12 | CP.PCM.PN ---
Subjective - Date & Time of Evaluation Date of Evaluation: 02/07/17 Time of Evaluation: 13:10 - Subjective Subjective: Patient s/p Cath 1. Non obstructive coronaries. 2. Normal EF by ECHO Continue current medications Objective - Vital Signs/Intake and Output Vital Signs (last 24 hours): Temp Pulse Resp BP Pulse Ox 97.5 F L 80 20 113/62 96 02/07/17 15:00 02/07/17 16:00 02/07/17 15:00 02/07/17 15:00 02/07/17 15:00 - Medications Medications: Current Medications Acetylcysteine (Acetylcysteine 20%) 4 ml INH RQ6 [facility] Last Admin: 02/07/17 20:18 Dose: 4 ml Acetylcysteine (Acetylcysteine 20%) 6 ml PO Q12H [facility] Last Admin: 02/07/17 17:51 Dose: 6 ml Albuterol/Ipratropium (Duoneb 3 Mg/0.5 Mg (3 Ml) Ud) 3 ml INH RQ6 [facility] Last Admin: 02/07/17 20:18 Dose: 3 ml Alprazolam (Xanax) 0.5 mg PO TID PRN PRN Reason: Anxiety Amiodarone HCl (Cordarone) 200 mg PO DAILY [facility] Last Admin: 02/07/17 09:40 Dose: Not Given Aspirin (Aspirin Chewable) 81 mg PO DAILY [facility] Last Admin: 02/07/17 09:39 Dose: Not Given Budesonide (Pulmicort Respules) 0.25 mg INH RQ12 [facility] Last Admin: 02/07/17 20:18 Dose: 0.25 mg Diltiazem HCl (Cardizem) 60 mg PO Q6H [facility] Last Admin: 02/07/17 13:28 Dose: Not Given Sodium Chloride (Sodium Chloride 0.9%) 1,000 mls @ 50 mls/hr IV .Q20H [facility] Stop: 02/08/17 05:00 Insulin Human Regular (Novolin R) 0 unit SC ACHS [facility] PRN Reason: Protocol Last Admin: 02/07/17 17:50 Dose: 6 unit Methylprednisolone (Solu-Medrol) 40 mg IVP Q8H [facility] Last Admin: 02/07/17 17:51 Dose: 40 mg Gxjlu-2-Ipul Ethyl Esters (Lovaza) 1 gm PO DAILY [facility] Last Admin: 02/07/17 09:40 Dose: Not Given Ondansetron HCl (Zofran Inj) 4 mg IVP Q6 PRN PRN Reason: Nausea/Vomiting Pantoprazole Sodium (Protonix Ec Tab) 40 mg PO DAILY [facility] Last Admin: 02/07/17 09:40 Dose: Not Given Promethazine HCl/Dextromethorphan (Phenergan Dm Syrup) 5 ml PO Q6H PRN PRN Reason: Cough Last Admin: 02/05/17 15:56 Dose: 5 ml Repaglinide (Prandin) 1 mg PO TIDAC [facility] Last Admin: 02/07/17 17:51 Dose: 1 mg Rivaroxaban (Xarelto) 10 mg PO DAILY [facility] Last Admin: 02/01/17 10:00 Dose: 10 mg Rosuvastatin Calcium (Crestor) 10 mg PO HS [facility] Scopolamine (Transderm-Scop) 1 patch TD Q3D [facility] Last Admin: 02/06/17 18:04 Dose: 1 patch Tamsulosin HCl (Flomax) 0.4 mg PO DAILY [facility] Last Admin: 02/07/17 09:40 Dose: Not Given Tiotropium [place] (Spiriva) 18 mcg INH RQ24 [facility] Last Admin: 02/07/17 08:03 Dose: 18 mcg - Labs Labs: 02/07/17 07:18 02/07/17 07:18 PT 11.4 SECONDS (9.7-12.2) 02/07/17 07:18 INR 1.0 02/07/17 07:18 APTT 43 SECONDS (21-34) H D 02/07/17 07:18
[2017-02-08] MEDS: Albuterol-Ipratrop 3 mg / 0.5 (3 ml) UD INH SCH ×4 (01:06→20:06)
[2017-02-08] MEDS: Acetylcysteine 20% Inhal Soln (4ml) INH SCH ×4 (01:07→20:06)
[2017-02-08] MEDS: MethylPREDNISolone 40 mg Vial IVP SCH ×3 (02:05→17:29)
[2017-02-08 07:47] LABS: IRON 74 ug/dL (49-181)
[2017-02-08] MEDS: Budesonide 0.25 mg/2 ml Inhal Susp UD INH SCH ×2 (07:51→20:06)
[2017-02-08] MEDS: Tiotropium 18 mcg Cap For Inhalation INH SCH (07:51)
[2017-02-08] MEDS: Acetylcysteine 20% Inhal Soln (4ml) PO SCH (07:55)
[2017-02-08] MEDS: (Novolin R) Insulin Human Regular 100 units/ml vial SC SCH ×4 (08:30→22:00)
--- NOTE | 2017-02-08 08:56 | CP.PCM.PN ---
Subjective - Date & Time of Evaluation Date of Evaluation: 02/08/17 Time of Evaluation: 07:30 - Subjective Subjective: EP-Cardiology Progress Note Dr. Rice Patient seen and examined at bedside on the floor. No acute events overnight. He reports feeling much better today, with improvement of cough and no chest pain at time of exam. Continues to have intermittent wet cough, but feels less SOB. No LLE pain today. Denies pain with respiration, dizziness, yellow/green sputum production with cough. Objective - Vital Signs/Intake and Output Vital Signs (last 24 hours): Temp Pulse Resp BP Pulse Ox 97.6 F 73 20 122/60 99 02/08/17 08:30 02/08/17 08:30 02/08/17 08:30 02/08/17 08:30 02/08/17 08:30 Intake and Output: 02/08/17 02/08/17 06:59 18:59 Intake Total 600 Output Total 650 Balance -50 - Medications Medications: Current Medications Acetylcysteine (Acetylcysteine 20%) 4 ml INH RQ6 [facility] Last Admin: 02/08/17 07:52 Dose: 4 ml Acetylcysteine (Acetylcysteine 20%) 6 ml PO Q12H [facility] Last Admin: 02/08/17 07:55 Dose: 6 ml Albuterol/Ipratropium (Duoneb 3 Mg/0.5 Mg (3 Ml) Ud) 3 ml INH RQ6 [facility] Last Admin: 02/08/17 07:51 Dose: 3 ml Alprazolam (Xanax) 0.5 mg PO TID PRN PRN Reason: Anxiety Amiodarone HCl (Cordarone) 200 mg PO DAILY [facility] Last Admin: 02/07/17 09:40 Dose: Not Given Aspirin (Aspirin Chewable) 81 mg PO DAILY [facility] Last Admin: 02/07/17 09:39 Dose: Not Given Budesonide (Pulmicort Respules) 0.25 mg INH RQ12 [facility] Last Admin: 02/08/17 07:51 Dose: 0.25 mg Diltiazem HCl (Cardizem) 60 mg PO Q6H [facility] Last Admin: 02/08/17 08:31 Dose: 60 mg Insulin Human Regular (Novolin R) 0 unit SC ACHS [facility] PRN Reason: Protocol Last Admin: 02/08/17 08:30 Dose: 1 unit Methylprednisolone (Solu-Medrol) 40 mg IVP Q8H [facility] Last Admin: 02/08/17 02:05 Dose: 40 mg Vjvyz-2-Lsys Ethyl Esters (Lovaza) 1 gm PO DAILY [facility] Last Admin: 02/07/17 09:40 Dose: Not Given Ondansetron HCl (Zofran Inj) 4 mg IVP Q6 PRN PRN Reason: Nausea/Vomiting Pantoprazole Sodium (Protonix Ec Tab) 40 mg PO DAILY [facility] Last Admin: 02/07/17 09:40 Dose: Not Given Promethazine HCl/Dextromethorphan (Phenergan Dm Syrup) 5 ml PO Q6H PRN PRN Reason: Cough Last Admin: 02/05/17 15:56 Dose: 5 ml Repaglinide (Prandin) 1 mg PO TIDAC [facility] Last Admin: 02/08/17 08:29 Dose: 1 mg Rivaroxaban (Xarelto) 10 mg PO DAILY [facility] Last Admin: 02/01/17 10:00 Dose: 10 mg Rosuvastatin Calcium (Crestor) 10 mg PO HS [facility] Last Admin: 02/07/17 22:29 Dose: 10 mg Scopolamine (Transderm-Scop) 1 patch TD Q3D [facility] Last Admin: 02/06/17 18:04 Dose: 1 patch Tamsulosin HCl (Flomax) 0.4 mg PO DAILY [facility] Last Admin: 02/07/17 09:40 Dose: Not Given Tiotropium [place] (Spiriva) 18 mcg INH RQ24 [facility] Last Admin: 02/08/17 07:51 Dose: 18 mcg - Labs Labs: 02/07/17 07:18 02/07/17 07:18 PT 11.4 SECONDS (9.7-12.2) 02/07/17 07:18 INR 1.0 02/07/17 07:18 APTT 43 SECONDS (21-34) H D 02/07/17 07:18 - Additional Findings Additional findings: - Constitutional Appears: Non-toxic, No Acute Distress, Chronically Ill, Resting comfortably in bed - Head Exam Head Exam: ATRAUMATIC, NORMAL INSPECTION, NORMOCEPHALIC - Eye Exam Eye Exam: EOMI, Normal appearance. absent: Conjunctival injection, Scleral icterus Pupil Exam: absent: Irregular, Unequal - ENT Exam ENT Exam: Mucous Membranes Moist. absent: Mucous Membranes Dry - Respiratory Exam Respiratory Exam: Rhonchi (diffuse rhonci in all auscultated currie during inspiration and expiration, improved over prior exam). absent: Chest Wall Tenderness, Accessory Muscle Use, Clear to Ausculation Bilateral, Respiratory Distress, Stridor - Cardiovascular Exam Cardiovascular Exam: REGULAR RATE & RHYTHM, +S1/+S2. Absent: Murmurs, Clicks - GI/Abdominal Exam GI & Abdominal Exam: Soft, Tenderness (mild diffuse tenderness), Normal Bowel Sounds. absent: Distended, Firm, Rigid, Diminished Bowel Sounds, Hyperactive Bowel Sounds, Hypoactive Bowel Sounds - Extremities Exam Extremities Exam: Pedal Edema (+1 pitting edema in LLE, no pitting edema in RLE) . absent: Tenderness, Calf Tenderness, Gross erythema, Areas of palpable warmth - Neurological Exam Neurological Exam: Alert, Awake, Following commands appropriately, some spontaneous movement of all extremities - Psychiatric Exam Psychiatric exam: Normal Affect, Normal Mood - Skin Skin Exam: Dry, Intact, Normal Color, Warm Assessment and Plan (1) Cardiac arrhythmia, unspecified Assessment & Plan: EKG 01/29/17: Sinus tachycardia with premature supraventricular complexes at 114 , QTc prolonged at 472, Right bundle branch block, Inferior infarct (age undetermined), Abnormal ECG EKG 02/01/17 Rapid Response #1: Atrial flutter with 2:1 AV conduction at 156, QTc prolonged at 538, Left axis deviation, Pulmonary disease pattern, Right bundle branch block, Abnormal ECG EKG 02/01/17 Rapid Response #2: Wide QRS tachycardia at 162, QRS prolonged at 122 , QTc prolonged at 522, Right bundle branch block, Inferior infarct (age undetermined), Abnormal ECG EKG 02/01/17 PM: Sinus rhythm with premature supraventricular complexes at 122, QRS prolonged at 122, Left axis deviation, Right bundle branch block, T wave abnormality (consider lateral ischemia), Abnormal ECG EKG 02/02/17: Sinus rhythm with premature supraventricular complexes at 72, Left axis deviation, Right bundle branch block, Abnormal ECG EKG 02/06/17: Sinus rhythm with premature atrial complexes at 76, Low voltage QRS , Right bundle branch block, Abnormal ECG Echo 01/30/17: LVEF 51%, Mildly dilated LV, Moderately dilated LA, Mild-mod concentric LVH, RVSP 50-60 mmHg, severe pulm HTN, mild-mod TR Cardiac Cath 02/07/17: non-obstructed coronaries, normal EF Admission trops negative x3 Trops post rapid responses negative x3 -Tachy arrhythmia, AFib with RVR vs AFlutter vs VTach -Continue medical management, continue PO Amiodarone 200mg PO daily; off Amio and Cardizem gtts; converting from Cardizem 60mg q6 to 320mg CD PO daily -s/p cardiac cath -Trops post rapid negative x3 -Most recent EKG notable for sinus rhythm with premature supraventricular complexes, frequent complexes notable on bedside tele monitor during exam -Hemodynamically stable, appropriate mentation -Continue telemetry monitoring Status: Acute (2) AAA (abdominal aortic aneurysm) Assessment & Plan: -Hx AAA s/p bypass graft with 2 iliac limbs, now 4.4cm on CTA; R iliac limb chronically occluded, Aneurysm of [place] common iliac artery b/l; surgery following -Hemodynamically stable -Continue close monitoring in ICU, continue telemetry monitoring, avoid elevated BPs to prevent worsening/rupture of aneurysm Status: Chronic - Assessment and Plan (Free Text) Assessment: Case discussed with Dr. Rice
--- NOTE | 2017-02-08 09:31 | CP.PCM.PN ---
<Ellen Salguero - Last Filed: 02/08/17 09:20> Subjective - Date & Time of Evaluation Date of Evaluation: 02/08/17 Time of Evaluation: 09:20 - Subjective Subjective: PGY-[address] Lafleur No acute event overnight. No dysuria or SOB. (+) cough with sputum improves compared to yesterday Objective - Vital Signs/Intake and Output Vital Signs (last 24 hours): Temp Pulse Resp BP Pulse Ox 97.6 F 73 20 122/60 99 02/08/17 08:30 02/08/17 08:30 02/08/17 08:30 02/08/17 08:30 02/08/17 08:30 Intake and Output: 02/08/17 02/08/17 06:59 18:59 Intake Total 600 Output Total 650 Balance -50 - Medications Medications: Current Medications Acetylcysteine (Acetylcysteine 20%) 4 ml INH RQ6 [facility] Last Admin: 02/08/17 07:52 Dose: 4 ml Acetylcysteine (Acetylcysteine 20%) 6 ml PO Q12H [facility] Last Admin: 02/08/17 07:55 Dose: 6 ml Albuterol/Ipratropium (Duoneb 3 Mg/0.5 Mg (3 Ml) Ud) 3 ml INH RQ6 [facility] Last Admin: 02/08/17 07:51 Dose: 3 ml Alprazolam (Xanax) 0.5 mg PO TID PRN PRN Reason: Anxiety Amiodarone HCl (Cordarone) 200 mg PO DAILY [facility] Last Admin: 02/07/17 09:40 Dose: Not Given Aspirin (Aspirin Chewable) 81 mg PO DAILY [facility] Last Admin: 02/07/17 09:39 Dose: Not Given Budesonide (Pulmicort Respules) 0.25 mg INH RQ12 [facility] Last Admin: 02/08/17 07:51 Dose: 0.25 mg Diltiazem HCl (Cardizem) 60 mg PO Q6H [facility] Last Admin: 02/08/17 08:31 Dose: 60 mg Insulin Human Regular (Novolin R) 0 unit SC ACHS [facility] PRN Reason: Protocol Last Admin: 02/08/17 08:30 Dose: 1 unit Methylprednisolone (Solu-Medrol) 40 mg IVP Q8H [facility] Last Admin: 02/08/17 02:05 Dose: 40 mg Pklmp-5-Mhor Ethyl Esters (Lovaza) 1 gm PO DAILY [facility] Last Admin: 02/07/17 09:40 Dose: Not Given Ondansetron HCl (Zofran Inj) 4 mg IVP Q6 PRN PRN Reason: Nausea/Vomiting Pantoprazole Sodium (Protonix Ec Tab) 40 mg PO DAILY [facility] Last Admin: 02/07/17 09:40 Dose: Not Given Promethazine HCl/Dextromethorphan (Phenergan Dm Syrup) 5 ml PO Q6H PRN PRN Reason: Cough Last Admin: 02/05/17 15:56 Dose: 5 ml Repaglinide (Prandin) 1 mg PO TIDAC [facility] Last Admin: 02/08/17 08:29 Dose: 1 mg Rivaroxaban (Xarelto) 10 mg PO DAILY [facility] Last Admin: 02/01/17 10:00 Dose: 10 mg Rosuvastatin Calcium (Crestor) 10 mg PO HS [facility] Last Admin: 02/07/17 22:29 Dose: 10 mg Scopolamine (Transderm-Scop) 1 patch TD Q3D [facility] Last Admin: 02/06/17 18:04 Dose: 1 patch Tamsulosin HCl (Flomax) 0.4 mg PO DAILY [facility] Last Admin: 02/07/17 09:40 Dose: Not Given Tiotropium [place] (Spiriva) 18 mcg INH RQ24 [facility] Last Admin: 02/08/17 07:51 Dose: 18 mcg - Labs Labs: 02/07/17 07:18 02/07/17 07:18 PT 11.4 SECONDS (9.7-12.2) 02/07/17 07:18 INR 1.0 02/07/17 07:18 APTT 43 SECONDS (21-34) H D 02/07/17 07:18 - Constitutional Appears: No Acute Distress - Head Exam Head Exam: ATRAUMATIC, NORMOCEPHALIC - Eye Exam Eye Exam: EOMI, Normal appearance - ENT Exam ENT Exam: Mucous Membranes Moist - Respiratory Exam Respiratory Exam: Rales, NORMAL BREATHING PATTERN. absent: Rhonchi, Wheezes - Cardiovascular Exam Cardiovascular Exam: Irregular Rhythm, +S1, +S2 - GI/Abdominal Exam GI & Abdominal Exam: Normal Bowel Sounds. absent: Guarding, Soft - Extremities Exam Extremities Exam: Pedal Edema - Back Exam Back Exam: absent: CVA tenderness (L), CVA tenderness (R) - Neurological Exam Neurological Exam: Alert, Awake, Oriented x3 - Psychiatric Exam Psychiatric exam: Normal Affect, Normal Mood - Skin Skin Exam: Dry, Warm Assessment and Plan - Assessment and Plan (Free Text) Plan: 81 M with PMH of paroxysmal afib on Eliquis, DM2, COPD/ex-smoker of 50pack-yr, Hyperlipidemia, CKD 3, Abdominal Aortic Aneurysm with Stent, presents to the ED for complaint of SOB and COPD exacernation. CP was 2 months ago and pt could not articulate events leading to CP. SOB most likely from severe pulm HTN shown on echocardiogram. Pt has a Right hydronephrosis (01/30) due to right iliac anuerism. Pt is s/p [employer] for rapid a-fib that turned wide complex tachycardia while on cardizem gtt. VSS. Pt AAOx3, NAD. Cardiac cath cancelled last week for wheezing. Resume heparin gtt. Over the weekend, pt was upgraded to ICU for recurrence of afib associated with hypotension to SBP 90s. He was treated by Amio/Cardizem gtt. He was downgraded to telemetry. Today, his CXR looks more venous congested, 92% on 4L. A-fib RVR, wide-complex tachycardia - resolved, s/p Cardizem/amio gtt QT prolong - amiodarone 200 PO daily; cardizem 60 q6 --> CD formulation - resume heparin gtt - Xarelto on hold - consulted Dr. Rice for elective catheter ablation - CANDACE negative x 3 Hx CAD RBBB Ascending aortic anerysm - EKG: Sinus tachy 114. SVC. RBBB. Q waves in inferior leads. - s/p Cath: Non-obstructing CAD. Ascending aortic anerysm - Acetylcysteine - s/p NS@50 for 24 hrs post cath Oliguric Watch contrast nephropathy - 27cc/hr urine over last 24 hours - pending today's lab CV risk reduction - DM controlled - Added ASA, crestor 10 with goal of titrate to high dose in long-term as tolerated COPD exacerbation Pulmonary hypertension, severe, RVSP 50-60 Suspicious of PNA, Left base - managed per primary and pulm team - on solumedrol, neb, antitussive Aortic aneurysm, [place] type 3 vs 4 - AAA s/p bypass graft with 2 iliac limbs, now 4.4cm on CTA - R iliac limb, occuluded, chronic - Anerysm of [place] common iliac artery b/l - surgery following Chronic R kidney hydronehrosis CKD stage 3 DVT prophylasix - already on gtt D/S/R/w Dr. Lafleur <Maxi Lafleur - Last Filed: 02/08/17 17:33> Objective - Vital Signs/Intake and Output Vital Signs (last 24 hours): Temp Pulse Resp BP Pulse Ox 97.7 F 130 H 20 110/70 95 02/08/17 15:00 02/08/17 15:30 02/08/17 15:00 02/08/17 15:00 02/08/17 15:00 Intake and Output: 02/08/17 02/08/17 06:59 18:59 Intake Total 600 Output Total 650 Balance -50 - Medications Medications: Current Medications Acetylcysteine (Acetylcysteine 20%) 4 ml INH RQ6 [facility] Last Admin: 02/08/17 13:18 Dose: 4 ml Acetylcysteine (Acetylcysteine 20%) 6 ml PO Q12H [facility] Last Admin: 02/08/17 07:55 Dose: 6 ml Albuterol/Ipratropium (Duoneb 3 Mg/0.5 Mg (3 Ml) Ud) 3 ml INH RQ6 [facility] Last Admin: 02/08/17 13:18 Dose: 3 ml Alprazolam (Xanax) 0.5 mg PO TID PRN PRN Reason: Anxiety Last Admin: 02/08/17 10:05 Dose: 0.5 mg Amiodarone HCl (Cordarone) 200 mg PO DAILY [facility] Last Admin: 02/08/17 10:06 Dose: 200 mg Aspirin (Aspirin Chewable) 81 mg PO DAILY [facility] Last Admin: 02/08/17 10:06 Dose: 81 mg Budesonide (Pulmicort Respules) 0.25 mg INH RQ12 [facility] Last Admin: 02/08/17 07:51 Dose: 0.25 mg Diltiazem HCl (Cardizem Cd) 360 mg PO DAILY [facility] Last Admin: 02/08/17 16:18 Dose: 360 mg Heparin Sodium (Porcine) (Heparin) 5,000 units SC Q12 [facility] Insulin Human Regular (Novolin R) 0 unit SC ACHS [facility] PRN Reason: Protocol Last Admin: 02/08/17 12:28 Dose: 6 unit Methylprednisolone (Solu-Medrol) 40 mg IVP Q8H [facility] Last Admin: 02/08/17 17:29 Dose: 40 mg Qbsru-8-[id number] Ethyl Esters (Lovaza) 1 gm PO DAILY [facility] Last Admin: 02/08/17 10:06 Dose: 1 gm Ondansetron HCl (Zofran Inj) 4 mg IVP Q6 PRN PRN Reason: Nausea/Vomiting Pantoprazole Sodium (Protonix Ec Tab) 40 mg PO DAILY [facility] Last Admin: 02/08/17 10:06 Dose: 40 mg Promethazine HCl/Dextromethorphan (Phenergan Dm Syrup) 5 ml PO Q6H PRN PRN Reason: Cough Last Admin: 02/08/17 10:06 Dose: 5 ml Repaglinide (Prandin) 1 mg PO TIDAC [facility] Last Admin: 02/08/17 17:28 Dose: 1 mg Rivaroxaban (Xarelto) 10 mg PO DAILY [facility] Last Admin: 02/01/17 10:00 Dose: 10 mg Rosuvastatin [place] (Crestor) 10 mg PO HS [facility] Last Admin: 02/07/17 22:29 Dose: 10 mg Scopolamine (Transderm-Scop) 1 patch TD Q3D [facility] Last Admin: 02/06/17 18:04 Dose: 1 patch Tamsulosin HCl (Flomax) 0.4 mg PO DAILY [facility] Last Admin: 02/08/17 10:06 Dose: 0.4 mg Tiotropium [place] (Spiriva) 18 mcg INH RQ24 [facility] Last Admin: 02/08/17 07:51 Dose: 18 mcg - Labs Labs: 02/08/17 13:20 02/08/17 07:06 PT 11.8 SECONDS (9.7-12.2) 02/08/17 13:20 INR 1.1 02/08/17 13:20 APTT 24 SECONDS (21-34) D 02/08/17 13:20 Assessment and Plan - Assessment and Plan (Free Text) Assessment: Patient seen and evaluated with the medical records secretary Plan of care defined
[2017-02-08] MEDS: Promethazine DM 6.25 mg-15 mg/5 ml Syrup PO PRN (10:06)
[2017-02-08] MEDS: Pantoprazole 40 mg EC Tab PO SCH (10:06)
[2017-02-08] MEDS: Omega-3-Acid Ethyl Esters 1 GM Cap PO SCH (10:06)
--- NOTE | 2017-02-08 11:20 | CP.PCM.PN ---
<Nicky Laws - Last Filed: 02/08/17 20:28> Subjective - Date & Time of Evaluation Date of Evaluation: 02/08/17 Time of Evaluation: 09:00 - Subjective Subjective: PGY1 Medicine note for Dr. Lomax Pt seen and evaluated at bedside. Nursing reports one episode of Afib/Aflutter last night which resolved with cardizem 5mg. Today, pt is comfortable and in no acute distress. Pt states that he is feeling much better and that he is happy to be out of the ICU. He reports that he still has a heavy cough that is producing phlegm. Pt denies fever, chills, headache, dizziness, chest pain, palpitations, nausea, vomiting, bowel/bladder pain, or leg pain. Patient continues to have LLE swelling. Later this morning, patient had an episode of hemoptysis. Objective - Vital Signs/Intake and Output Vital Signs (last 24 hours): Temp Pulse Resp BP Pulse Ox 97.6 F 73 20 122/60 99 02/08/17 08:30 02/08/17 08:30 02/08/17 08:30 02/08/17 08:30 02/08/17 08:30 Intake and Output: 02/08/17 02/08/17 06:59 18:59 Intake Total 600 Output Total 650 Balance -50 - Medications Medications: Current Medications Acetylcysteine (Acetylcysteine 20%) 4 ml INH RQ6 [facility] Last Admin: 02/08/17 07:52 Dose: 4 ml Acetylcysteine (Acetylcysteine 20%) 6 ml PO Q12H [facility] Last Admin: 02/08/17 07:55 Dose: 6 ml Albuterol/Ipratropium (Duoneb 3 Mg/0.5 Mg (3 Ml) Ud) 3 ml INH RQ6 [facility] Last Admin: 02/08/17 07:51 Dose: 3 ml Alprazolam (Xanax) 0.5 mg PO TID PRN PRN Reason: Anxiety Last Admin: 02/08/17 10:05 Dose: 0.5 mg Amiodarone HCl (Cordarone) 200 mg PO DAILY [facility] Last Admin: 02/08/17 10:06 Dose: 200 mg Aspirin (Aspirin Chewable) 81 mg PO DAILY [facility] Last Admin: 02/08/17 10:06 Dose: 81 mg Budesonide (Pulmicort Respules) 0.25 mg INH RQ12 [facility] Last Admin: 02/08/17 07:51 Dose: 0.25 mg Diltiazem HCl (Cardizem) 60 mg PO Q6H [facility] Last Admin: 02/08/17 08:31 Dose: 60 mg Heparin Sodium/Sodium Chloride (Heparin 15324 Units/250ml 1/2 Normal Saline) 25 ,000 units in 250 mls @ 1.329 mls/hr IV .Q24H PRN; Protocol; 2 UNITS/KG/HR PRN Reason: PROTOCOL Insulin Human Regular (Novolin R) 0 unit SC ACHS [facility] PRN Reason: Protocol Last Admin: 02/08/17 08:30 Dose: 1 unit Methylprednisolone (Solu-Medrol) 40 mg IVP Q8H [facility] Last Admin: 02/08/17 10:06 Dose: 40 mg Tnrbz-1-Epji Ethyl Esters (Lovaza) 1 gm PO DAILY [facility] Last Admin: 02/08/17 10:06 Dose: 1 gm Ondansetron HCl (Zofran Inj) 4 mg IVP Q6 PRN PRN Reason: Nausea/Vomiting Pantoprazole Sodium (Protonix Ec Tab) 40 mg PO DAILY [facility] Last Admin: 02/08/17 10:06 Dose: 40 mg Promethazine HCl/Dextromethorphan (Phenergan Dm Syrup) 5 ml PO Q6H PRN PRN Reason: Cough Last Admin: 02/08/17 10:06 Dose: 5 ml Repaglinide (Prandin) 1 mg PO TIDAC [facility] Last Admin: 02/08/17 08:29 Dose: 1 mg Rivaroxaban (Xarelto) 10 mg PO DAILY [facility] Last Admin: 02/01/17 10:00 Dose: 10 mg Rosuvastatin Calcium (Crestor) 10 mg PO HS [facility] Last Admin: 02/07/17 22:29 Dose: 10 mg Scopolamine (Transderm-Scop) 1 patch TD Q3D [facility] Last Admin: 02/06/17 18:04 Dose: 1 patch Tamsulosin HCl (Flomax) 0.4 mg PO DAILY [facility] Last Admin: 02/08/17 10:06 Dose: 0.4 mg Tiotropium [place] (Spiriva) 18 mcg INH RQ24 [facility] Last Admin: 02/08/17 07:51 Dose: 18 mcg - Labs Labs: 02/07/17 07:18 02/07/17 07:18 PT 11.4 SECONDS (9.7-12.2) 02/07/17 07:18 INR 1.0 02/07/17 07:18 APTT 43 SECONDS (21-34) H D 02/07/17 07:18 - Constitutional Appears: Non-toxic, No Acute Distress - Head Exam Head Exam: NORMAL INSPECTION - Eye Exam Eye Exam: Normal appearance. absent: Conjunctival injection, Scleral icterus - ENT Exam ENT Exam: Mucous Membranes Moist - Neck Exam Neck Exam: Normal Inspection - Respiratory Exam Respiratory Exam: Rhonchi, NORMAL BREATHING PATTERN. absent: Accessory Muscle Use, Chest Wall Tenderness, Clear to Ausculation Bilateral, Rales, Wheezes, Respiratory Distress - Cardiovascular Exam Cardiovascular Exam: Irregular Rhythm, +S1, +S2. absent: Murmur - GI/Abdominal Exam GI & Abdominal Exam: Soft, Normal Bowel Sounds. absent: Firm, Guarding, Rigid, Tenderness - Extremities Exam Extremities Exam: Normal Inspection, Pedal Edema (+1 LLE pitting). absent: Calf Tenderness, Tenderness - Back Exam Back Exam: NORMAL INSPECTION. absent: rash noted - Neurological Exam Neurological Exam: Alert, Awake, Oriented x3 - Psychiatric Exam Psychiatric exam: Normal Affect, Normal Mood - Skin Skin Exam: Dry, Intact, Normal Color, Warm Assessment and Plan - Assessment and Plan (Free Text) Assessment: 81 M with PMH of Dm, COPD, Hyperlipidemia, Abdominal Aortic Aneurysm with Stent , history of paroxysmal afib, presented with SOB and chest pain Plan: Afib with RVR, wide complex tachycardia Resolved Cardizem 360mg po daily Amiodarone 200mg po daily ASA 81mg po daily Xarelto 10mg po daily - on hold Dr. Rice consulted for elective ablation COPD exacerbation with underlying cor pulmonale D dimer 3507 BNP 2560 Troponin negative x 3 CXR: mild venous congestion; R hilar prominence and L central venous catheter; R paratracheal airspace opacity likely represents prominent vasculature. Small nodular denisty at the right lung base. repeat CXR 02/08 no active disease V/Q scan low probability for PE Morphine 1 mg IVP Q4H PRN Solumedrol 40mg IVP q8H Pulmicort 0.25mg INH Q12 Spiriva 18mcg INH Q24 Duoneb 3ml inh RQ6H Acetylcysteine 4ml inh q6 Scopolamine 2 ptach td q3day Phenergan DM 5ml po q6 prn cough blood culture prelim negative ECHO: LV mildly dilated. mild to mod concentric LVH. EF > 55%. L atrium mod dilated. RV systolic pressure estimated at 50-60mmHg. Severe pulmonary HTN. lipid panel WNL TSH/T4 WNL O2 via [place] Cardio consult, Dr. Lafleur, help appreciated Pulm consult, Dr. Hou, help appreciated. Hx CAD RBBB ASA 81mg po daily Crestor 10mg po hs Lovaza 1gm po daily s/p Cath that showed non-obstructing CAD B/l common iliac A aneurysm CT Abd/pelvis w/o contrast: obstructive hydronephrosis on R secondary to markedly enlarged R common iliac A aneurysm measuring up to 8.2cm. Additionally 5cm L common iliac A anurysm. 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 Augustine consulted Abdominal Aortic aneurysm with stent [place] types 3 vs 4 AAA s/p bypass graft with 2 iliac limbs, now 4.4cm on CTA Dr Augustine on board CKD III Nephro consult, Dr. Duran on board Urology Dr. Fernando on board Renal US: severe unilateral R sided hydronephrosis. large R lower quadrant and pelvic mass likely related to findings. Monitor BUN/Cr HTN Cardizem gtt Diabetes mellitus ISS Prandin 1mg po TIDAC Accuchecks ACHS Prophylactic measure SCDs Protonix 40 mg PO daily Morphine 1mg IVP Q4 prn pain severe Zofran 4mg IVP Q6 PRN nausea/vomiting Xanax 0.5mg po tid prn Heart healthy diet Heparin 5000U SC Q12 Xarelto 10mg po daily- on hold Plan discussed with Dr. Monie Laws PGY1 <Fracisco Lomax Jr. - Last Filed: 02/10/17 13:31> Objective - Vital Signs/Intake and Output Vital Signs (last 24 hours): Temp Pulse Resp BP Pulse Ox 97.6 F 68 20 100/63 96 02/09/17 23:40 02/10/17 10:00 02/09/17 23:40 02/09/17 23:40 02/09/17 23:40 Intake and Output: 02/10/17 02/10/17 06:59 18:59 Intake Total 240 Output Total 500 Balance -260 - Medications Medications: Current Medications Acetylcysteine (Acetylcysteine 20%) 4 ml INH RQ6 [facility] Last Admin: 02/10/17 13:23 Dose: 4 ml Albuterol/Ipratropium (Duoneb 3 Mg/0.5 Mg (3 Ml) Ud) 3 ml INH RQ6 [facility] Last Admin: 02/10/17 08:49 Dose: 3 ml Alprazolam (Xanax) 0.5 mg PO TID PRN PRN Reason: Anxiety Last Admin: 02/09/17 10:01 Dose: 0.5 mg Amiodarone HCl (Cordarone) 200 mg PO DAILY [facility] Last Admin: 02/10/17 10:33 Dose: 200 mg Aspirin (Aspirin Chewable) 81 mg PO DAILY [facility] Last Admin: 02/10/17 10:32 Dose: 81 mg Budesonide (Pulmicort Respules) 0.25 mg INH RQ12 [facility] Last Admin: 02/10/17 08:49 Dose: 0.25 mg Diltiazem HCl (Cardizem Cd) 360 mg PO DAILY [facility] Last Admin: 02/10/17 10:32 Dose: 360 mg Heparin Sodium (Porcine) (Heparin) 5,000 units SC Q12 [facility] Last Admin: 02/10/17 10:33 Dose: 5,000 units Insulin Human Regular (Novolin R) 0 unit SC ACHS [facility] PRN Reason: Protocol Last Admin: 02/10/17 12:25 Dose: 8 unit Methylprednisolone (Solu-Medrol) 40 mg IVP Q8H [facility] Last Admin: 02/10/17 10:33 Dose: 40 mg Rswqn-6-Bcui Ethyl Esters (Lovaza) 1 gm PO DAILY [facility] Last Admin: 02/10/17 10:33 Dose: 1 gm Ondansetron HCl (Zofran Inj) 4 mg IVP Q6 PRN PRN Reason: Nausea/Vomiting Pantoprazole Sodium (Protonix Ec Tab) 40 mg PO DAILY [facility] Last Admin: 02/10/17 10:33 Dose: 40 mg Promethazine HCl/Dextromethorphan (Phenergan Dm Syrup) 5 ml PO Q6H PRN PRN Reason: Cough Last Admin: 02/08/17 10:06 Dose: 5 ml Repaglinide (Prandin) 1 mg PO TIDAC [facility] Last Admin: 02/10/17 12:25 Dose: 1 mg Rivaroxaban (Xarelto) 10 mg PO DAILY [facility] Last Admin: 02/01/17 10:00 Dose: 10 mg Rosuvastatin Calcium (Crestor) 10 mg PO HS [facility] Last Admin: 02/09/17 22:09 Dose: 10 mg Scopolamine (Transderm-Scop) 1 patch TD Q3D [facility] Last Admin: 02/09/17 17:25 Dose: 1 patch Tamsulosin HCl (Flomax) 0.4 mg PO DAILY [facility] Last Admin: 02/10/17 10:34 Dose: 0.4 mg Tiotropium [place] (Spiriva) 18 mcg INH RQ24 [facility] Last Admin: 02/09/17 08:00 Dose: 18 mcg - Labs Labs: 02/10/17 07:11 02/10/17 07:11 PT 11.8 SECONDS (9.7-12.2) 02/08/17 13:20 INR 1.1 02/08/17 13:20 APTT 24 SECONDS (21-34) D 02/08/17 13:20 Attending/Attestation - Attestation I have personally seen and examined this patient.: Yes I have fully participated in the care of the patient.: Yes I have reviewed all pertinent clinical information, including history, physical exam and plan: Yes Notes (Text): 02/10/17 13:31 Agree with resident note and findings
[2017-02-08] MEDS ORDERED: Heparin25000 units/250ml 1/2NS 25,000 UNITS/250 ML BAG IV PRN ×2 (11:42→11:45)
[2017-02-08] MEDS ORDERED: diltiaZEM 300 mg/24 Hours CD Cap PO SCH (12:00)
[2017-02-08 12:10] LABS: LYMPH # 0.1 K/uL (1.0-4.3); MONO # 0.4 K/uL (0.0-0.8); MONO % 2.8 % (0.0-10.0)
[2017-02-08 12:14] LABS: EOS % 0.1 % (0.0-4.0); HEMATOCRIT 26.8 % (35.0-51.0); LYMPH % 1.1 % (20.0-40.0); MEAN CELL VOLUME 88.2 fL (80.0-94.0); MEAN CORPUSCULAR HEMOGLOBIN 28.3 pg (27.0-31.0); MEAN CORPUSCULAR HGB CONC 32.1 g/dL (33.0-37.0); MEAN PLATELET VOLUME 9.1 fL (7.2-11.7); NRBC % 0.4 % (0.0-2.0); RED CELL DISTRIBUTION WIDTH 16.4 % (11.5-14.5); WHITE BLOOD COUNT 12.9 K/uL (4.8-10.8)
[2017-02-08 12:15] LABS: PLATELET COUNT 124 K/uL (130-400)
[2017-02-08 12:42] LABS: NEUTROPHIL 91 % (50-75); TOTAL CELLS COUNTED 100
[2017-02-08 13:27] LABS: POTASSIUM 4.3 mmol/L (3.6-5.2)
[2017-02-08 13:29] LABS: ALB/GLOB RATIO 1.1 (1.0-2.1); TOTAL PROTEIN 5.1 g/dL (6.3-8.3)
[2017-02-08 13:30] LABS: CALCIUM 7.4 mg/dl (8.6-10.4); PHOSPHOROUS 3.8 mg/dL (2.5-4.5)
[2017-02-08 13:32] LABS: HEMATOCRIT 27.1 % (35.0-51.0); MEAN CELL VOLUME 88.7 fL (80.0-94.0); MEAN CORPUSCULAR HEMOGLOBIN 28.3 pg (27.0-31.0); MEAN CORPUSCULAR HGB CONC 31.9 g/dL (33.0-37.0); MEAN PLATELET VOLUME 8.7 fL (7.2-11.7); RED CELL DISTRIBUTION WIDTH 16.4 % (11.5-14.5); WHITE BLOOD COUNT 13.8 K/uL (4.8-10.8)
[2017-02-08 13:40] LABS: INR 1.1
--- NOTE | 2017-02-08 14:25 | CP.PCM.PN ---
Subjective - Date & Time of Evaluation Date of Evaluation: 02/08/17 Time of Evaluation: 07:15 - Subjective Subjective: Vasc Sx: Dr Horn Pt S&E. NAEO. Cardiology work-up noted. Pt denies pain at this time. Denies sob, chest pain, f/c. ROS + for cough. Recently started having hemoptysis this morning. Objective - Vital Signs/Intake and Output Vital Signs (last 24 hours): Temp Pulse Resp BP Pulse Ox 97.6 F 73 20 122/60 99 02/08/17 08:30 02/08/17 08:30 02/08/17 08:30 02/08/17 08:30 02/08/17 08:30 Intake and Output: 02/08/17 02/08/17 06:59 18:59 Intake Total 600 Output Total 650 Balance -50 - Medications Medications: Current Medications Acetylcysteine (Acetylcysteine 20%) 4 ml INH RQ6 [facility] Last Admin: 02/08/17 13:18 Dose: 4 ml Acetylcysteine (Acetylcysteine 20%) 6 ml PO Q12H [facility] Last Admin: 02/08/17 07:55 Dose: 6 ml Albuterol/Ipratropium (Duoneb 3 Mg/0.5 Mg (3 Ml) Ud) 3 ml INH RQ6 [facility] Last Admin: 02/08/17 13:18 Dose: 3 ml Alprazolam (Xanax) 0.5 mg PO TID PRN PRN Reason: Anxiety Last Admin: 02/08/17 10:05 Dose: 0.5 mg Amiodarone HCl (Cordarone) 200 mg PO DAILY [facility] Last Admin: 02/08/17 10:06 Dose: 200 mg Aspirin (Aspirin Chewable) 81 mg PO DAILY [facility] Last Admin: 02/08/17 10:06 Dose: 81 mg Budesonide (Pulmicort Respules) 0.25 mg INH RQ12 [facility] Last Admin: 02/08/17 07:51 Dose: 0.25 mg Diltiazem HCl (Cardizem Cd) 320 mg PO DAILY [facility] Heparin Sodium (Porcine) (Heparin) 5,000 units SC Q12 [facility] Heparin Sodium/Sodium Chloride (Heparin 96156 Units/250ml 1/2 Normal Saline) 25 ,000 units in 250 mls @ 7.974 mls/hr IV .Q24H PRN; Protocol; 12 UNITS/KG/HR PRN Reason: PROTOCOL Insulin Human Regular (Novolin R) 0 unit SC ACHS [facility] PRN Reason: Protocol Last Admin: 02/08/17 12:28 Dose: 6 unit Methylprednisolone (Solu-Medrol) 40 mg IVP Q8H [facility] Last Admin: 02/08/17 10:06 Dose: 40 mg Lxdui-4-Fofv Ethyl Esters (Lovaza) 1 gm PO DAILY [facility] Last Admin: 02/08/17 10:06 Dose: 1 gm Ondansetron HCl (Zofran Inj) 4 mg IVP Q6 PRN PRN Reason: Nausea/Vomiting Pantoprazole Sodium (Protonix Ec Tab) 40 mg PO DAILY [facility] Last Admin: 02/08/17 10:06 Dose: 40 mg Promethazine HCl/Dextromethorphan (Phenergan Dm Syrup) 5 ml PO Q6H PRN PRN Reason: Cough Last Admin: 02/08/17 10:06 Dose: 5 ml Repaglinide (Prandin) 1 mg PO TIDAC [facility] Last Admin: 02/08/17 12:28 Dose: 1 mg Rivaroxaban (Xarelto) 10 mg PO DAILY [facility] Last Admin: 02/01/17 10:00 Dose: 10 mg Rosuvastatin Calcium (Crestor) 10 mg PO HS [facility] Last Admin: 02/07/17 22:29 Dose: 10 mg Scopolamine (Transderm-Scop) 1 patch TD Q3D [facility] Last Admin: 02/06/17 18:04 Dose: 1 patch Tamsulosin HCl (Flomax) 0.4 mg PO DAILY [facility] Last Admin: 02/08/17 10:06 Dose: 0.4 mg Tiotropium [place] (Spiriva) 18 mcg INH RQ24 [facility] Last Admin: 02/08/17 07:51 Dose: 18 mcg - Labs Labs: 02/08/17 13:20 02/08/17 07:06 PT 11.8 SECONDS (9.7-12.2) 02/08/17 13:20 INR 1.1 02/08/17 13:20 APTT 24 SECONDS (21-34) D 02/08/17 13:20 - Constitutional Appears: No Acute Distress - ENT Exam ENT Exam: Mucous Membranes Moist - Respiratory Exam Respiratory Exam: absent: Accessory Muscle Use, Respiratory Distress - Cardiovascular Exam Cardiovascular Exam: Tachycardia, Irregular Rhythm - GI/Abdominal Exam GI & Abdominal Exam: Soft. absent: Distended, Firm, Tenderness - Extremities Exam Extremities Exam: absent: Pedal Edema - Neurological Exam Neurological Exam: Alert, Awake, Oriented x3 - Psychiatric Exam Psychiatric exam: Normal Affect, Normal Mood Assessment and Plan - Assessment and Plan (Free Text) Assessment: 81M with Iliac artery aneurysm and AAA s/p repair, now with type II endoleak Plan: cleared by cardiology as high risk for operative intervention scheduling of intervention to be determined - will follow with details tomorrow further optimization per primary d/w Dr Kory Gordon, DO, PGY2
--- NOTE | 2017-02-08 15:21 | RAD ---
HISTORY: hemoptysis COMPARISON: 02/06/2017 FINDINGS: LUNGS: No active pulmonary disease. PLEURA: No significant pleural effusion identified, no pneumothorax apparent. CARDIOVASCULAR: Mild cardiomegaly. Left central venous infusion port. OSSEOUS STRUCTURES: No significant abnormalities. VISUALIZED UPPER ABDOMEN: Normal. OTHER FINDINGS: None. IMPRESSION: No active disease.
[2017-02-08] MEDS: diltiaZEM 180 mg/24 Hours CD Cap PO SCH (16:18)
--- NOTE | 2017-02-08 21:45 | CP.PCM.PN ---
Subjective - Date & Time of Evaluation Date of Evaluation: 02/08/17 Time of Evaluation: 21:00 - Subjective Subjective: Patient reports breathing and cough improved; tolerating diet well; Objective - Vital Signs/Intake and Output Vital Signs (last 24 hours): Temp Pulse Resp BP Pulse Ox 97.7 F 130 H 20 110/70 95 02/08/17 15:00 02/08/17 15:30 02/08/17 15:00 02/08/17 15:00 02/08/17 15:00 - Medications Medications: Current Medications Acetylcysteine (Acetylcysteine 20%) 4 ml INH RQ6 [facility] Last Admin: 02/08/17 20:06 Dose: 4 ml Albuterol/Ipratropium (Duoneb 3 Mg/0.5 Mg (3 Ml) Ud) 3 ml INH RQ6 [facility] Last Admin: 02/08/17 20:06 Dose: 3 ml Alprazolam (Xanax) 0.5 mg PO TID PRN PRN Reason: Anxiety Last Admin: 02/08/17 10:05 Dose: 0.5 mg Amiodarone HCl (Cordarone) 200 mg PO DAILY [facility] Last Admin: 02/08/17 10:06 Dose: 200 mg Aspirin (Aspirin Chewable) 81 mg PO DAILY [facility] Last Admin: 02/08/17 10:06 Dose: 81 mg Budesonide (Pulmicort Respules) 0.25 mg INH RQ12 [facility] Last Admin: 02/08/17 20:06 Dose: 0.25 mg Diltiazem HCl (Cardizem Cd) 360 mg PO DAILY [facility] Last Admin: 02/08/17 16:18 Dose: 360 mg Heparin Sodium (Porcine) (Heparin) 5,000 units SC Q12 [facility] Last Admin: 02/08/17 21:23 Dose: 5,000 units Insulin Human Regular (Novolin R) 0 unit SC ACHS [facility] PRN Reason: Protocol Last Admin: 02/08/17 17:34 Dose: 6 unit Methylprednisolone (Solu-Medrol) 40 mg IVP Q8H [facility] Last Admin: 02/08/17 17:29 Dose: 40 mg Tvkar-5-Zmrw Ethyl Esters (Lovaza) 1 gm PO DAILY [facility] Last Admin: 02/08/17 10:06 Dose: 1 gm Ondansetron HCl (Zofran Inj) 4 mg IVP Q6 PRN PRN Reason: Nausea/Vomiting Pantoprazole Sodium (Protonix Ec Tab) 40 mg PO DAILY [facility] Last Admin: 02/08/17 10:06 Dose: 40 mg Promethazine HCl/Dextromethorphan (Phenergan Dm Syrup) 5 ml PO Q6H PRN PRN Reason: Cough Last Admin: 02/08/17 10:06 Dose: 5 ml Repaglinide (Prandin) 1 mg PO TIDAC [facility] Last Admin: 02/08/17 17:28 Dose: 1 mg Rivaroxaban (Xarelto) 10 mg PO DAILY [facility] Last Admin: 02/01/17 10:00 Dose: 10 mg Rosuvastatin Calcium (Crestor) 10 mg PO HS [facility] Last Admin: 02/07/17 22:29 Dose: 10 mg Scopolamine (Transderm-Scop) 2 patch TD Q3D [facility] Tamsulosin HCl (Flomax) 0.4 mg PO DAILY [facility] Last Admin: 02/08/17 10:06 Dose: 0.4 mg Tiotropium [place] (Spiriva) 18 mcg INH RQ24 [facility] Last Admin: 02/08/17 07:51 Dose: 18 mcg - Labs Labs: 02/08/17 13:20 02/08/17 07:06 PT 11.8 SECONDS (9.7-12.2) 02/08/17 13:20 INR 1.1 02/08/17 13:20 APTT 24 SECONDS (21-34) D 02/08/17 13:20 - Constitutional Appears: Well, No Acute Distress - Head Exam Head Exam: NORMOCEPHALIC - Eye Exam Eye Exam: Normal appearance. absent: Scleral icterus - ENT Exam ENT Exam: Mucous Membranes Moist - Respiratory Exam Additional comments: Mildly tachypneic; diffuse coarse exp wheezes; - Cardiovascular Exam Cardiovascular Exam: RRR - GI/Abdominal Exam GI & Abdominal Exam: Soft. absent: Distended, Tenderness - Extremities Exam Extremities Exam: Normal Capillary Refill Additional comments: L leg edema; - Neurological Exam Neurological Exam: Alert, Awake - Psychiatric Exam Psychiatric exam: Normal Affect, Normal Mood - Skin Skin Exam: Normal Color, Warm. 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; sensitive to hemodynamic changes; need to avoid hypotension; Status: Acute (3) Pulmonary hypertension Assessment & Plan: Likely from COPD; will consider restarting low dose lasix 20 mg PO bid if renal function stable and robust BP; Status: Acute (4) Hypertension Assessment & Plan: Currently on cardizem CD 360 mg daily for Afib rate control; no low BP readings today; continue per cardio recs; Status: Chronic (5) CAD (coronary artery disease) Assessment & Plan: Non-obstructive CAD per cath; consistent with multi-level atherosclerotic disease; started on high potency statin crestor; should titrate dose upward as tolerated; Status: Acute (6) Iliac aneurysm Assessment & Plan: High risk surgery to correct this, with acute kidney injury being one of the risks; will monitor; if endovascular repair being done with IV dye load, need to prep patient again to avoid contrast nephropathy; Status: Acute
[2017-02-09] MEDS: Acetylcysteine 20% Inhal Soln (4ml) INH SCH ×4 (01:38→19:59)
[2017-02-09] MEDS: Albuterol-Ipratrop 3 mg / 0.5 (3 ml) UD INH SCH ×4 (01:38→19:59)
[2017-02-09] MEDS: MethylPREDNISolone 40 mg Vial IVP SCH ×3 (01:53→17:23)
[2017-02-09 06:15] LABS: BASO % 0.1 % (0.0-2.0); HEMATOCRIT 25.3 % (35.0-51.0); LYMPH # 0.1 K/uL (1.0-4.3); MEAN CELL VOLUME 88.8 fL (80.0-94.0); MEAN CORPUSCULAR HEMOGLOBIN 28.7 pg (27.0-31.0); MEAN CORPUSCULAR HGB CONC 32.3 g/dL (33.0-37.0); MEAN PLATELET VOLUME 8.7 fL (7.2-11.7); MONO # 0.3 K/uL (0.0-0.8); MONO % 2.6 % (0.0-10.0); NRBC % 0.2 % (0.0-2.0); PLATELET COUNT 112 K/uL (130-400); RED CELL DISTRIBUTION WIDTH 16.5 % (11.5-14.5); WHITE BLOOD COUNT 12.1 K/uL (4.8-10.8)
[2017-02-09 06:29] LABS: POTASSIUM 4.5 mmol/L (3.6-5.2)
[2017-02-09 06:32] LABS: CALCIUM 7.6 mg/dl (8.6-10.4); MAGNESIUM 1.8 mg/dL (1.6-2.3)
[2017-02-09 06:36] LABS: ALB/GLOB RATIO 1.2 (1.0-2.1)
--- NOTE | 2017-02-09 07:29 | CP.PCM.PN ---
<Nicky aLws - Last Filed: 02/09/17 21:42> Subjective - Date & Time of Evaluation Date of Evaluation: 02/09/17 Time of Evaluation: 10:00 - Subjective Subjective: PGY1 Medicine note for Dr. Lomax Pt seen and evaluated at bedside. Pt is comfortable and in no acute distress. Pt states that he is feeling much better and that his cough has improved. Pt denies fever, chills, headache, dizziness, chest pain, palpitations, nausea, vomiting, bowel/bladder pain, or leg pain. Patient continues to have LLE swelling.Pt denied hemoptysis overnight. Objective - Vital Signs/Intake and Output Vital Signs (last 24 hours): Temp Pulse Resp BP Pulse Ox 97.5 F L 71 20 113/62 96 02/08/17 23:40 02/09/17 00:15 02/08/17 23:40 02/08/17 23:40 02/08/17 23:40 Intake and Output: 02/09/17 02/09/17 06:59 18:59 Intake Total 240 Output Total 1000 Balance -760 - Medications Medications: Current Medications Acetylcysteine (Acetylcysteine 20%) 4 ml INH RQ6 [facility] Last Admin: 02/09/17 01:38 Dose: 4 ml Albuterol/Ipratropium (Duoneb 3 Mg/0.5 Mg (3 Ml) Ud) 3 ml INH RQ6 [facility] Last Admin: 02/09/17 01:38 Dose: 3 ml Alprazolam (Xanax) 0.5 mg PO TID PRN PRN Reason: Anxiety Last Admin: 02/08/17 10:05 Dose: 0.5 mg Amiodarone HCl (Cordarone) 200 mg PO DAILY [facility] Last Admin: 02/08/17 10:06 Dose: 200 mg Aspirin (Aspirin Chewable) 81 mg PO DAILY [facility] Last Admin: 02/08/17 10:06 Dose: 81 mg Budesonide (Pulmicort Respules) 0.25 mg INH RQ12 [facility] Last Admin: 02/08/17 20:06 Dose: 0.25 mg Diltiazem HCl (Cardizem Cd) 360 mg PO DAILY [facility] Last Admin: 02/08/17 16:18 Dose: 360 mg Heparin Sodium (Porcine) (Heparin) 5,000 units SC Q12 [facility] Last Admin: 02/08/17 21:23 Dose: 5,000 units Insulin Human Regular (Novolin R) 0 unit SC ACHS [facility] PRN Reason: Protocol Last Admin: 02/08/17 22:00 Dose: Not Given Methylprednisolone (Solu-Medrol) 40 mg IVP Q8H [facility] Last Admin: 02/09/17 01:53 Dose: 40 mg Odawm-4-Cxrl Ethyl Esters (Lovaza) 1 gm PO DAILY [facility] Last Admin: 02/08/17 10:06 Dose: 1 gm Ondansetron HCl (Zofran Inj) 4 mg IVP Q6 PRN PRN Reason: Nausea/Vomiting Pantoprazole Sodium (Protonix Ec Tab) 40 mg PO DAILY [facility] Last Admin: 02/08/17 10:06 Dose: 40 mg Promethazine HCl/Dextromethorphan (Phenergan Dm Syrup) 5 ml PO Q6H PRN PRN Reason: Cough Last Admin: 02/08/17 10:06 Dose: 5 ml Repaglinide (Prandin) 1 mg PO TIDAC [facility] Last Admin: 02/08/17 17:28 Dose: 1 mg Rivaroxaban (Xarelto) 10 mg PO DAILY [facility] Last Admin: 02/01/17 10:00 Dose: 10 mg Rosuvastatin Calcium (Crestor) 10 mg PO HS [facility] Last Admin: 02/08/17 21:54 Dose: 10 mg Scopolamine (Transderm-Scop) 2 patch TD Q3D [facility] Tamsulosin HCl (Flomax) 0.4 mg PO DAILY [facility] Last Admin: 02/08/17 10:06 Dose: 0.4 mg Tiotropium [place] (Spiriva) 18 mcg INH RQ24 [facility] Last Admin: 02/08/17 07:51 Dose: 18 mcg - Labs Labs: 02/09/17 06:05 02/09/17 06:05 PT 11.8 SECONDS (9.7-12.2) 02/08/17 13:20 INR 1.1 02/08/17 13:20 APTT 24 SECONDS (21-34) D 02/08/17 13:20 - Constitutional Appears: Non-toxic, No Acute Distress - Head Exam Head Exam: NORMAL INSPECTION - Eye Exam Eye Exam: Normal appearance. absent: Conjunctival injection, Scleral icterus - ENT Exam ENT Exam: Mucous Membranes Moist - Neck Exam Neck Exam: Normal Inspection. absent: Tenderness - Respiratory Exam Respiratory Exam: Decreased Breath Sounds, Rhonchi. absent: Accessory Muscle Use, Prolonged Expiratory Phase, Respiratory Distress - Cardiovascular Exam Cardiovascular Exam: REGULAR RHYTHM, +S1, +S2 - GI/Abdominal Exam GI & Abdominal Exam: Soft, Normal Bowel Sounds. absent: Tenderness - Extremities Exam Extremities Exam: Pedal Edema (+1 LLE ). absent: Tenderness - Back Exam Back Exam: NORMAL INSPECTION. absent: rash noted - Neurological Exam Neurological Exam: Alert, Awake, CN II-XII Intact, Oriented x3 - Psychiatric Exam Psychiatric exam: Normal Affect, Normal Mood - Skin Skin Exam: Dry, Intact, Normal Color, Warm Assessment and Plan - Assessment and Plan (Free Text) Assessment: 81 M with PMH of Dm, COPD, Hyperlipidemia, Abdominal Aortic Aneurysm with Stent , history of paroxysmal afib, presented with SOB and chest pain Plan: Afib with RVR, wide complex tachycardia Resolved Cardizem 360mg po daily Amiodarone 200mg po daily ASA 81mg po daily Xarelto 10mg po daily - on hold Patient to follow up with Dr Rice outpatient COPD exacerbation with underlying cor pulmonale D dimer 3507 BNP 2560 Troponin negative x 3 CXR: mild venous congestion; R hilar prominence and L central venous catheter; R paratracheal airspace opacity likely represents prominent vasculature. Small nodular denisty at the right lung base. repeat CXR 02/08 no active disease V/Q scan low probability for PE Morphine 1 mg IVP Q4H PRN Solumedrol 40mg IVP q8H Pulmicort 0.25mg INH Q12 Spiriva 18mcg INH Q24 Duoneb 3ml inh RQ6H Acetylcysteine 4ml inh q6 Scopolamine 2 ptach td q3day Phenergan DM 5ml po q6 prn cough blood culture prelim negative ECHO: LV mildly dilated. mild to mod concentric LVH. EF > 55%. L atrium mod dilated. RV systolic pressure estimated at 50-60mmHg. Severe pulmonary HTN. lipid panel WNL TSH/T4 WNL O2 via ND Cardio consult, Dr. Lafleur, help appreciated Pulm consult, Dr. Hou, help appreciated. Hx CAD RBBB ASA 81mg po daily Crestor 10mg po hs Lovaza 1gm po daily s/p Cath that showed non-obstructing CAD B/l common iliac A aneurysm CT Abd/pelvis w/o contrast: obstructive hydronephrosis on R secondary to markedly enlarged R common iliac A aneurysm measuring up to 8.2cm. Additionally 5cm L common iliac A anurysm. Relatively stable infrarenal abdominal aortic aneurysm R iliac limb, occuluded, chronic Anerysm of [place] common iliac artery b/l to follow up outpatient with Dr Augustine Abdominal Aortic aneurysm with stent [place] types 3 vs 4 AAA s/p bypass graft with 2 iliac limbs, now 4.4cm on CTA to follow up outpatient with Dr Augustine CKD III Nephro consult, Dr. Duran on board Urology Dr. Fernando on board Renal US: severe unilateral R sided hydronephrosis. large R lower quadrant and pelvic mass likely related to findings. Monitor BUN/Cr HTN Amiodarone 200mg PO daily Cardizem 360mg PO daily Diabetes mellitus ISS Prandin 1mg po TIDAC Accuchecks ACHS Prophylactic measure SCDs Protonix 40 mg PO daily Morphine 1mg IVP Q4 prn pain severe Zofran 4mg IVP Q6 PRN nausea/vomiting Xanax 0.5mg po tid prn Heart healthy diet Heparin 5000U SC Q12 Xarelto 10mg po daily- on hold Plan discussed with Dr. Monie Laws PGY1 <Fracisco Lomax Jr. - Last Filed: 02/10/17 13:34> Objective - Vital Signs/Intake and Output Vital Signs (last 24 hours): Temp Pulse Resp BP Pulse Ox 97.6 F 68 20 100/63 96 02/09/17 23:40 02/10/17 10:00 02/09/17 23:40 02/09/17 23:40 02/09/17 23:40 Intake and Output: 02/10/17 02/10/17 06:59 18:59 Intake Total 240 Output Total 500 Balance -260 - Medications Medications: Current Medications Acetylcysteine (Acetylcysteine 20%) 4 ml INH RQ6 [facility] Last Admin: 02/10/17 13:23 Dose: 4 ml Albuterol/Ipratropium (Duoneb 3 Mg/0.5 Mg (3 Ml) Ud) 3 ml INH RQ6 [facility] Last Admin: 02/10/17 08:49 Dose: 3 ml Alprazolam (Xanax) 0.5 mg PO TID PRN PRN Reason: Anxiety Last Admin: 02/09/17 10:01 Dose: 0.5 mg Amiodarone HCl (Cordarone) 200 mg PO DAILY [facility] Last Admin: 02/10/17 10:33 Dose: 200 mg Aspirin (Aspirin Chewable) 81 mg PO DAILY [facility] Last Admin: 02/10/17 10:32 Dose: 81 mg Budesonide (Pulmicort Respules) 0.25 mg INH RQ12 [facility] Last Admin: 02/10/17 08:49 Dose: 0.25 mg Diltiazem HCl (Cardizem Cd) 360 mg PO DAILY [facility] Last Admin: 02/10/17 10:32 Dose: 360 mg Heparin Sodium (Porcine) (Heparin) 5,000 units SC Q12 [facility] Last Admin: 02/10/17 10:33 Dose: 5,000 units Insulin Human Regular (Novolin R) 0 unit SC ACHS [facility] PRN Reason: Protocol Last Admin: 02/10/17 12:25 Dose: 8 unit Methylprednisolone (Solu-Medrol) 40 mg IVP Q8H [facility] Last Admin: 02/10/17 10:33 Dose: 40 mg Eicgs-4-Kpgi Ethyl Esters (Lovaza) 1 gm PO DAILY [facility] Last Admin: 02/10/17 10:33 Dose: 1 gm Ondansetron HCl (Zofran Inj) 4 mg IVP Q6 PRN PRN Reason: Nausea/Vomiting Pantoprazole Sodium (Protonix Ec Tab) 40 mg PO DAILY [facility] Last Admin: 02/10/17 10:33 Dose: 40 mg Promethazine HCl/Dextromethorphan (Phenergan Dm Syrup) 5 ml PO Q6H PRN PRN Reason: Cough Last Admin: 02/08/17 10:06 Dose: 5 ml Repaglinide (Prandin) 1 mg PO TIDAC [facility] Last Admin: 02/10/17 12:25 Dose: 1 mg Rivaroxaban (Xarelto) 10 mg PO DAILY [facility] Last Admin: 02/01/17 10:00 Dose: 10 mg Rosuvastatin Calcium (Crestor) 10 mg PO HS [facility] Last Admin: 02/09/17 22:09 Dose: 10 mg Scopolamine (Transderm-Scop) 1 patch TD Q3D [facility] Last Admin: 02/09/17 17:25 Dose: 1 patch Tamsulosin HCl (Flomax) 0.4 mg PO DAILY [facility] Last Admin: 02/10/17 10:34 Dose: 0.4 mg Tiotropium [place] (Spiriva) 18 mcg INH RQ24 [facility] Last Admin: 02/09/17 08:00 Dose: 18 mcg - Labs Labs: 02/10/17 07:11 02/10/17 07:11 PT 11.8 SECONDS (9.7-12.2) 02/08/17 13:20 INR 1.1 02/08/17 13:20 APTT 24 SECONDS (21-34) D 02/08/17 13:20 Attending/Attestation - Attestation I have personally seen and examined this patient.: Yes I have fully participated in the care of the patient.: Yes I have reviewed all pertinent clinical information, including history, physical exam and plan: Yes Notes (Text): 02/10/17 13:33 Agree with resident note and findings
--- NOTE | 2017-02-09 07:33 | CP.PCM.PN ---
Subjective - Date & Time of Evaluation Date of Evaluation: 02/09/17 Time of Evaluation: 06:45 - Subjective Subjective: Vasc Sx: Dr Horn Pt S&E. NAEO. Resting comfortably. No complaints. Denies pain, n/v, f/c, sob or chest pain. Continued cough. No further episodes of blood in sputum. Objective - Vital Signs/Intake and Output Vital Signs (last 24 hours): Temp Pulse Resp BP Pulse Ox 97.5 F L 71 20 113/62 96 02/08/17 23:40 02/09/17 00:15 02/08/17 23:40 02/08/17 23:40 02/08/17 23:40 Intake and Output: 02/09/17 02/09/17 06:59 18:59 Intake Total 240 Output Total 1000 Balance -760 - Medications Medications: Current Medications Acetylcysteine (Acetylcysteine 20%) 4 ml INH RQ6 [facility] Last Admin: 02/09/17 01:38 Dose: 4 ml Albuterol/Ipratropium (Duoneb 3 Mg/0.5 Mg (3 Ml) Ud) 3 ml INH RQ6 [facility] Last Admin: 02/09/17 01:38 Dose: 3 ml Alprazolam (Xanax) 0.5 mg PO TID PRN PRN Reason: Anxiety Last Admin: 02/08/17 10:05 Dose: 0.5 mg Amiodarone HCl (Cordarone) 200 mg PO DAILY [facility] Last Admin: 02/08/17 10:06 Dose: 200 mg Aspirin (Aspirin Chewable) 81 mg PO DAILY [facility] Last Admin: 02/08/17 10:06 Dose: 81 mg Budesonide (Pulmicort Respules) 0.25 mg INH RQ12 [facility] Last Admin: 02/08/17 20:06 Dose: 0.25 mg Diltiazem HCl (Cardizem Cd) 360 mg PO DAILY [facility] Last Admin: 02/08/17 16:18 Dose: 360 mg Heparin Sodium (Porcine) (Heparin) 5,000 units SC Q12 [facility] Last Admin: 02/08/17 21:23 Dose: 5,000 units Insulin Human Regular (Novolin R) 0 unit SC ACHS [facility] PRN Reason: Protocol Last Admin: 02/08/17 22:00 Dose: Not Given Methylprednisolone (Solu-Medrol) 40 mg IVP Q8H [facility] Last Admin: 02/09/17 01:53 Dose: 40 mg Ffzja-5-Ijwt Ethyl Esters (Lovaza) 1 gm PO DAILY [facility] Last Admin: 02/08/17 10:06 Dose: 1 gm Ondansetron HCl (Zofran Inj) 4 mg IVP Q6 PRN PRN Reason: Nausea/Vomiting Pantoprazole Sodium (Protonix Ec Tab) 40 mg PO DAILY [facility] Last Admin: 02/08/17 10:06 Dose: 40 mg Promethazine HCl/Dextromethorphan (Phenergan Dm Syrup) 5 ml PO Q6H PRN PRN Reason: Cough Last Admin: 02/08/17 10:06 Dose: 5 ml Repaglinide (Prandin) 1 mg PO TIDAC [facility] Last Admin: 02/08/17 17:28 Dose: 1 mg Rivaroxaban (Xarelto) 10 mg PO DAILY [facility] Last Admin: 02/01/17 10:00 Dose: 10 mg Rosuvastatin Calcium (Crestor) 10 mg PO HS [facility] Last Admin: 02/08/17 21:54 Dose: 10 mg Scopolamine (Transderm-Scop) 2 patch TD Q3D [facility] Tamsulosin HCl (Flomax) 0.4 mg PO DAILY [facility] Last Admin: 02/08/17 10:06 Dose: 0.4 mg Tiotropium [place] (Spiriva) 18 mcg INH RQ24 [facility] Last Admin: 02/08/17 07:51 Dose: 18 mcg - Labs Labs: 02/09/17 06:05 02/09/17 06:05 PT 11.8 SECONDS (9.7-12.2) 02/08/17 13:20 INR 1.1 02/08/17 13:20 APTT 24 SECONDS (21-34) D 02/08/17 13:20 - Constitutional Appears: Non-toxic, No Acute Distress - ENT Exam ENT Exam: Mucous Membranes Moist - Respiratory Exam Respiratory Exam: absent: Accessory Muscle Use, Respiratory Distress - Cardiovascular Exam Cardiovascular Exam: Tachycardia - GI/Abdominal Exam GI & Abdominal Exam: Soft. absent: Distended, Tenderness Assessment and Plan - Assessment and Plan (Free Text) Plan: 81M with iliac aneurysm with type II endoleak Pt can be d/c from surgical perspective with outpatient follow up for repair of aneurysm. d/w Dr Kory Gordon, PGY2
[2017-02-09] MEDS: Tiotropium 18 mcg Cap For Inhalation INH SCH (08:00)
[2017-02-09] MEDS: Budesonide 0.25 mg/2 ml Inhal Susp UD INH SCH ×2 (08:01→20:00)
[2017-02-09 08:32] LABS: NEUTROPHIL 94 % (50-75); NUCLEATED RED BLOOD CELL 1 % (0-0); TOTAL CELLS COUNTED 100
[2017-02-09] MEDS: Pantoprazole 40 mg EC Tab PO SCH (10:01)
[2017-02-09] MEDS: diltiaZEM 180 mg/24 Hours CD Cap PO SCH (10:02)
[2017-02-09] MEDS: Omega-3-Acid Ethyl Esters 1 GM Cap PO SCH (10:03)
[2017-02-09] MEDS: (Novolin R) Insulin Human Regular 100 units/ml vial SC SCH ×4 (10:03→21:44)
--- NOTE | 2017-02-09 10:13 | CP.PCM.PN ---
<Kvng Zaragoza - Last Filed: 02/09/17 15:27> Subjective - Date & Time of Evaluation Date of Evaluation: 02/09/17 Time of Evaluation: 07:30 - Subjective Subjective: EP-Cardiology Progress Note Dr. Rice Patient seen and examined at bedside. Yesterday, he had two reported episodes of hemoptysis. No acute events overnight, no further episodes of hemoptysis per patient and nursing, no reported episodes of Afib overnight. He reports feeling much better today, with improvement of cough and no chest pain at time of exam. Continues to have intermittent wet cough, but feels less SOB. No LLE pain today. Denies pain with respiration, dizziness, yellow/green sputum production with cough. Objective - Vital Signs/Intake and Output Vital Signs (last 24 hours): Temp Pulse Resp BP Pulse Ox 98.4 F 74 18 116/72 97 02/09/17 07:25 02/09/17 07:25 02/09/17 07:25 02/09/17 07:25 02/09/17 07:25 Intake and Output: 02/09/17 02/09/17 06:59 18:59 Intake Total 240 Output Total 1000 Balance -760 - Medications Medications: Current Medications Acetylcysteine (Acetylcysteine 20%) 4 ml INH RQ6 [facility] Last Admin: 02/09/17 08:00 Dose: 4 ml Albuterol/Ipratropium (Duoneb 3 Mg/0.5 Mg (3 Ml) Ud) 3 ml INH RQ6 [facility] Last Admin: 02/09/17 08:00 Dose: 3 ml Alprazolam (Xanax) 0.5 mg PO TID PRN PRN Reason: Anxiety Last Admin: 02/09/17 10:01 Dose: 0.5 mg Amiodarone HCl (Cordarone) 200 mg PO DAILY [facility] Last Admin: 02/09/17 10:02 Dose: 200 mg Aspirin (Aspirin Chewable) 81 mg PO DAILY [facility] Last Admin: 02/08/17 10:06 Dose: 81 mg Budesonide (Pulmicort Respules) 0.25 mg INH RQ12 [facility] Last Admin: 02/09/17 08:01 Dose: 0.25 mg Diltiazem HCl (Cardizem Cd) 360 mg PO DAILY [facility] Last Admin: 02/09/17 10:02 Dose: 360 mg Heparin Sodium (Porcine) (Heparin) 5,000 units SC Q12 [facility] Last Admin: 02/08/17 21:23 Dose: 5,000 units Insulin Human Regular (Novolin R) 0 unit SC ACHS [facility] PRN Reason: Protocol Last Admin: 02/09/17 10:03 Dose: 3 unit Methylprednisolone (Solu-Medrol) 40 mg IVP Q8H [facility] Last Admin: 02/09/17 10:02 Dose: 40 mg Icupu-6-Qrhp Ethyl Esters (Lovaza) 1 gm PO DAILY [facility] Last Admin: 02/09/17 10:03 Dose: 1 gm Ondansetron HCl (Zofran Inj) 4 mg IVP Q6 PRN PRN Reason: Nausea/Vomiting Pantoprazole Sodium (Protonix Ec Tab) 40 mg PO DAILY [facility] Last Admin: 02/09/17 10:01 Dose: 40 mg Promethazine HCl/Dextromethorphan (Phenergan Dm Syrup) 5 ml PO Q6H PRN PRN Reason: Cough Last Admin: 02/08/17 10:06 Dose: 5 ml Repaglinide (Prandin) 1 mg PO TIDAC [facility] Last Admin: 02/09/17 10:03 Dose: 1 mg Rivaroxaban (Xarelto) 10 mg PO DAILY [facility] Last Admin: 02/01/17 10:00 Dose: 10 mg Rosuvastatin Calcium (Crestor) 10 mg PO HS [facility] Last Admin: 02/08/17 21:54 Dose: 10 mg Scopolamine (Transderm-Scop) 2 patch TD Q3D [facility] Tamsulosin HCl (Flomax) 0.4 mg PO DAILY [facility] Last Admin: 02/09/17 10:02 Dose: 0.4 mg Tiotropium [place] (Spiriva) 18 mcg INH RQ24 [facility] Last Admin: 02/09/17 08:00 Dose: 18 mcg - Labs Labs: 02/09/17 06:05 02/09/17 06:05 PT 11.8 SECONDS (9.7-12.2) 02/08/17 13:20 INR 1.1 02/08/17 13:20 APTT 24 SECONDS (21-34) D 02/08/17 13:20 - Additional Findings Additional findings: - Constitutional Appears: Non-toxic, No Acute Distress, Chronically Ill, Resting comfortably in bed - Head Exam Head Exam: ATRAUMATIC, NORMAL INSPECTION, NORMOCEPHALIC - Eye Exam Eye Exam: EOMI, Normal appearance. absent: Conjunctival injection, Scleral icterus Pupil Exam: absent: Irregular, Unequal - ENT Exam ENT Exam: Mucous Membranes Moist. absent: Mucous Membranes Dry - Respiratory Exam Respiratory Exam: Rhonchi (diffuse rhonci in all auscultated currie during inspiration and expiration, unchanged from exam yesterday). absent: Chest Wall Tenderness, Accessory Muscle Use, Clear to Ausculation Bilateral, Respiratory Distress, Stridor - Cardiovascular Exam Cardiovascular Exam: REGULAR RATE & RHYTHM, +S1/+S2. Absent: Murmurs, Clicks - GI/Abdominal Exam GI & Abdominal Exam: Soft, Tenderness (mild diffuse tenderness), Normal Bowel Sounds. absent: Distended, Firm, Rigid, Diminished Bowel Sounds, Hyperactive Bowel Sounds, Hypoactive Bowel Sounds - Extremities Exam Extremities Exam: Pedal Edema (+1 pitting edema in LLE, trace pitting edema in RLE). absent: Tenderness, Calf Tenderness, Gross erythema, Areas of palpable warmth - Neurological Exam Neurological Exam: Alert, Awake, Following commands appropriately, some spontaneous movement of all extremities - Psychiatric Exam Psychiatric exam: Normal Affect, Normal Mood - Skin Skin Exam: Dry, Intact, Normal Color, Warm Assessment and Plan (1) Cardiac arrhythmia, unspecified Assessment & Plan: EKG 01/29/17: Sinus tachycardia with premature supraventricular complexes at 114 , QTc prolonged at 472, Right bundle branch block, Inferior infarct (age undetermined), Abnormal ECG EKG 02/01/17 Rapid Response #1: Atrial flutter with 2:1 AV conduction at 156, QTc prolonged at 538, Left axis deviation, Pulmonary disease pattern, Right bundle branch block, Abnormal ECG EKG 02/01/17 Rapid Response #2: Wide QRS tachycardia at 162, QRS prolonged at 122 , QTc prolonged at 522, Right bundle branch block, Inferior infarct (age undetermined), Abnormal ECG EKG 02/01/17 PM: Sinus rhythm with premature supraventricular complexes at 122, QRS prolonged at 122, Left axis deviation, Right bundle branch block, T wave abnormality (consider lateral ischemia), Abnormal ECG EKG 02/02/17: Sinus rhythm with premature supraventricular complexes at 72, Left axis deviation, Right bundle branch block, Abnormal ECG EKG 02/06/17: Sinus rhythm with premature atrial complexes at 76, Low voltage QRS , Right bundle branch block, Abnormal ECG Echo 01/30/17: LVEF 51%, Mildly dilated LV, Moderately dilated LA, Mild-mod concentric LVH, RVSP 50-60 mmHg, severe pulm HTN, mild-mod TR Cardiac Cath 02/07/17: non-obstructed coronaries, normal EF Admission trops negative x3 Trops post rapid responses negative x3 -AFib with RVR; no recurrences overnight -s/p cardiac cath, results as above -Trops post rapid negative x3 -Hemodynamically stable, appropriate mentation -AC and ASA held yesterday due to hemoptysis x2, no further episodes overnight or today -No further episodes of hemoptysis reported as per staff and pt -Resume ASA 81mg PO daily given extensive vascular disease, hold off on additional anticoagulation/blood thinners (hold home Eliquis) -Continue medical management: PO Amiodarone 200mg PO daily, Cardizem CD 360mg PO daily -After discharge, f/u with Dr. Rice at the office by 02/15/17 Status: Acute (2) AAA (abdominal aortic aneurysm) Assessment & Plan: -Hx AAA s/p bypass graft with 2 iliac limbs, now 4.4cm on CTA; R iliac limb chronically occluded, Aneurysm of [place] common iliac artery b/l; surgery following -Hemodynamically stable -Continue telemetry monitoring, avoid elevated BPs to prevent worsening/rupture of aneurysm Status: Chronic - Assessment and Plan (Free Text) Assessment: Case discussed with Dr. Rice. <Dyana Rice - Last Filed: 02/11/17 08:16> Objective - Vital Signs/Intake and Output Vital Signs (last 24 hours): Temp Pulse Resp BP Pulse Ox 97.7 F 106 H 20 111/62 95 02/10/17 23:31 02/10/17 23:31 02/10/17 23:31 02/10/17 23:31 02/11/17 05:59 Intake and Output: 02/11/17 02/11/17 06:59 18:59 Intake Total 200 Output Total 200 Balance 0 - Medications Medications: Current Medications Acetylcysteine (Acetylcysteine 20%) 4 ml INH RQ6 [facility] Last Admin: 02/11/17 01:13 Dose: 4 ml Albuterol/Ipratropium (Duoneb 3 Mg/0.5 Mg (3 Ml) Ud) 3 ml INH RQ6 [facility] Last Admin: 02/11/17 01:13 Dose: 3 ml Alprazolam (Xanax) 0.5 mg PO TID PRN PRN Reason: Anxiety Last Admin: 02/09/17 10:01 Dose: 0.5 mg Amiodarone HCl (Cordarone) 200 mg PO DAILY [facility] Last Admin: 02/10/17 10:33 Dose: 200 mg Aspirin (Aspirin Chewable) 81 mg PO DAILY [facility] Last Admin: 02/10/17 10:32 Dose: 81 mg Budesonide (Pulmicort Respules) 0.25 mg INH RQ12 [facility] Last Admin: 02/10/17 20:35 Dose: 0.25 mg Diltiazem HCl (Cardizem Cd) 360 mg PO DAILY [facility] Last Admin: 02/10/17 10:32 Dose: 360 mg Heparin Sodium (Porcine) (Heparin) 5,000 units SC Q12 [facility] Last Admin: 02/10/17 21:47 Dose: 5,000 units Insulin Human Regular (Novolin R) 0 unit SC ACHS [facility] PRN Reason: Protocol Last Admin: 02/10/17 21:29 Dose: Not Given Methylprednisolone (Solu-Medrol) 40 mg IVP Q8H [facility] Last Admin: 02/11/17 01:09 Dose: 40 mg Dclxs-2-Ysmv Ethyl Esters (Lovaza) 1 gm PO DAILY [facility] Last Admin: 02/10/17 10:33 Dose: 1 gm Ondansetron HCl (Zofran Inj) 4 mg IVP Q6 PRN PRN Reason: Nausea/Vomiting Pantoprazole Sodium (Protonix Ec Tab) 40 mg PO DAILY [facility] Last Admin: 02/10/17 10:33 Dose: 40 mg Promethazine HCl/Dextromethorphan (Phenergan Dm Syrup) 5 ml PO Q6H PRN PRN Reason: Cough Last Admin: 02/08/17 10:06 Dose: 5 ml Repaglinide (Prandin) 1 mg PO TIDAC [facility] Last Admin: 02/10/17 17:46 Dose: 1 mg Rivaroxaban (Xarelto) 10 mg PO DAILY [facility] Last Admin: 02/01/17 10:00 Dose: 10 mg Rosuvastatin Calcium (Crestor) 10 mg PO HS [facility] Last Admin: 02/09/17 22:09 Dose: 10 mg Scopolamine (Transderm-Scop) 1 patch TD Q3D NGUYỄN Last Admin: 02/09/17 17:25 Dose: 1 patch Tamsulosin HCl (Flomax) 0.4 mg PO DAILY NGUYỄN Last Admin: 02/10/17 10:34 Dose: 0.4 mg Tiotropium [place] (Spiriva) 18 mcg INH RQ24 NGUYỄN Last Admin: 02/10/17 20:45 Dose: 18 mcg - Labs Labs: 02/11/17 07:26 02/11/17 07:26 PT 11.8 SECONDS (9.7-12.2) 02/08/17 13:20 INR 1.1 02/08/17 13:20 APTT 24 SECONDS (21-34) D 02/08/17 13:20 Attending/Attestation - Attestation I have personally seen and examined this patient.: Yes I have fully participated in the care of the patient.: Yes I have reviewed all pertinent clinical information, including history, physical exam and plan: Yes Notes (Text): 02/11/17 08:16 continue ASA pt wth hemoptysis
--- NOTE | 2017-02-09 13:36 | CP.PCM.PN ---
<Ellen Salguero - Last Filed: 02/09/17 13:36> Subjective - Date & Time of Evaluation Date of Evaluation: 02/09/17 Time of Evaluation: 07:35 - Subjective Subjective: PGY-[address] Lafleur Per RN, less hemoptysis over night. No more hemoptysis in the afternoon. Pt cough and SOB improves. denies chest pain Objective - Vital Signs/Intake and Output Vital Signs (last 24 hours): Temp Pulse Resp BP Pulse Ox 98.4 F 74 18 116/72 97 02/09/17 07:25 02/09/17 07:25 02/09/17 07:25 02/09/17 07:25 02/09/17 07:25 Intake and Output: 02/09/17 02/09/17 06:59 18:59 Intake Total 240 Output Total 1000 Balance -760 - Medications Medications: Current Medications Acetylcysteine (Acetylcysteine 20%) 4 ml INH RQ6 [facility] Last Admin: 02/09/17 13:31 Dose: 4 ml Albuterol/Ipratropium (Duoneb 3 Mg/0.5 Mg (3 Ml) Ud) 3 ml INH RQ6 [facility] Last Admin: 02/09/17 13:31 Dose: 3 ml Alprazolam (Xanax) 0.5 mg PO TID PRN PRN Reason: Anxiety Last Admin: 02/09/17 10:01 Dose: 0.5 mg Amiodarone HCl (Cordarone) 200 mg PO DAILY [facility] Last Admin: 02/09/17 10:02 Dose: 200 mg Aspirin (Aspirin Chewable) 81 mg PO DAILY [facility] Last Admin: 02/09/17 10:15 Dose: 81 mg Budesonide (Pulmicort Respules) 0.25 mg INH RQ12 [facility] Last Admin: 02/09/17 08:01 Dose: 0.25 mg Diltiazem HCl (Cardizem Cd) 360 mg PO DAILY [facility] Last Admin: 02/09/17 10:02 Dose: 360 mg Heparin Sodium (Porcine) (Heparin) 5,000 units SC Q12 [facility] Last Admin: 02/09/17 10:15 Dose: 5,000 units Insulin Human Regular (Novolin R) 0 unit SC ACHS [facility] PRN Reason: Protocol Methylprednisolone (Solu-Medrol) 40 mg IVP Q8H [facility] Last Admin: 02/09/17 10:02 Dose: 40 mg Nzmbh-1-Qprb Ethyl Esters (Lovaza) 1 gm PO DAILY [facility] Last Admin: 02/09/17 10:03 Dose: 1 gm Ondansetron HCl (Zofran Inj) 4 mg IVP Q6 PRN PRN Reason: Nausea/Vomiting Pantoprazole Sodium (Protonix Ec Tab) 40 mg PO DAILY [facility] Last Admin: 02/09/17 10:01 Dose: 40 mg Promethazine HCl/Dextromethorphan (Phenergan Dm Syrup) 5 ml PO Q6H PRN PRN Reason: Cough Last Admin: 02/08/17 10:06 Dose: 5 ml Repaglinide (Prandin) 1 mg PO TIDAC [facility] Last Admin: 02/09/17 10:03 Dose: 1 mg Rivaroxaban (Xarelto) 10 mg PO DAILY [facility] Last Admin: 02/01/17 10:00 Dose: 10 mg Rosuvastatin Calcium (Crestor) 10 mg PO HS [facility] Last Admin: 02/08/17 21:54 Dose: 10 mg Scopolamine (Transderm-Scop) 2 patch TD Q3D [facility] Tamsulosin HCl (Flomax) 0.4 mg PO DAILY [facility] Last Admin: 02/09/17 10:02 Dose: 0.4 mg Tiotropium [place] (Spiriva) 18 mcg INH RQ24 [facility] Last Admin: 02/09/17 08:00 Dose: 18 mcg - Labs Labs: 02/09/17 06:05 02/09/17 06:05 PT 11.8 SECONDS (9.7-12.2) 02/08/17 13:20 INR 1.1 02/08/17 13:20 APTT 24 SECONDS (21-34) D 02/08/17 13:20 - Constitutional Appears: No Acute Distress - Head Exam Head Exam: ATRAUMATIC, NORMOCEPHALIC - Eye Exam Eye Exam: EOMI, Normal appearance, PERRL Pupil Exam: NORMAL ACCOMODATION - ENT Exam ENT Exam: Mucous Membranes Moist - Neck Exam Additional comments: No carotid bruit - Respiratory Exam Respiratory Exam: Rales, NORMAL BREATHING PATTERN Additional comments: bronchial vesciluar sounds all lung field - Cardiovascular Exam Cardiovascular Exam: REGULAR RHYTHM, +S1, +S2 - GI/Abdominal Exam GI & Abdominal Exam: Soft, Normal Bowel Sounds. absent: Guarding, Rigid - Extremities Exam Extremities Exam: Normal Capillary Refill. absent: Calf Tenderness, Pedal Edema - Back Exam Back Exam: absent: CVA tenderness (L), CVA tenderness (R) - Neurological Exam Neurological Exam: Alert, Awake - Psychiatric Exam Psychiatric exam: Normal Affect, Normal Mood - Skin Skin Exam: Dry, Warm Assessment and Plan - Assessment and Plan (Free Text) Plan: 81 M with PMH of paroxysmal afib on Eliquis, DM2, COPD/ex-smoker of 50pack-yr, Hyperlipidemia, CKD 3, Abdominal Aortic Aneurysm with Stent, admitted for SOB and COPD exacerbation. CP was 2 months ago and pt could not articulate events leading to CP. SOB most likely from severe pulm HTN shown on echocardiogram. Pt has a Right hydronephrosis (01/30) due to right iliac anuerism. 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 Over the weekend, pt was upgraded to ICU for recurrence of afib associated with hypotension to SBP 90s. He was treated by Amio/Cardizem gtt. He was downgraded to telemetry. Pt was on heparin gtt but discontinued due to hemoptysis. A-fib RVR, wide-complex tachycardia - resolved, s/p Cardizem/amio gtt QT prolong - amiodarone 200 PO daily; cardizem CD 360 - heparin gtt and on hold - consulted Dr. Rice for elective catheter ablation - CANDACE negative x 3 Hx CAD RBBB Ascending aortic anerysm - s/p Cath: Non-obstructing CAD. Ascending aortic anerysm - ASA, cardizem, crestor 10 Oliguric - resolved Watch contrast nephropathy Chronic R kidney hydronehrosis CKD stage 3 DM controlled COPD exacerbation Pulmonary hypertension, severe, RVSP 50-60 Suspicious of PNA, Left base - managed per primary and pulm team - on solumedrol, neb, antitussive Aortic aneurysm, crawley type 3 vs 4 - AAA s/p bypass graft with 2 iliac limbs, now 4.4cm on CTA - R iliac limb, occuluded, chronic - Anerysm of [place] common iliac artery b/l - surgery following DVT prophylasix - consider SCD on L leg only Will D/S/R/w Dr. Lafleur <Maxi Lafleur - Last Filed: 06/02/17 22:54> Objective - Vital Signs/Intake and Output Vital Signs (last 24 hours): Temp Pulse Resp BP Pulse Ox 97.6 F 69 18 105/65 95 02/09/17 15:00 02/09/17 15:00 02/09/17 15:00 02/09/17 15:00 02/09/17 15:00 Intake and Output: 02/09/17 02/10/17 18:59 06:59 Output Total 330 300 Balance -330 -300 - Medications Medications: Current Medications Acetylcysteine (Acetylcysteine 20%) 4 ml INH RQ6 [facility] Last Admin: 02/09/17 19:59 Dose: 4 ml Albuterol/Ipratropium (Duoneb 3 Mg/0.5 Mg (3 Ml) Ud) 3 ml INH RQ6 [facility] Last Admin: 02/09/17 19:59 Dose: 3 ml Alprazolam (Xanax) 0.5 mg PO TID PRN PRN Reason: Anxiety Last Admin: 02/09/17 10:01 Dose: 0.5 mg Amiodarone HCl (Cordarone) 200 mg PO DAILY [facility] Last Admin: 02/09/17 10:02 Dose: 200 mg Aspirin (Aspirin Chewable) 81 mg PO DAILY [facility] Last Admin: 02/09/17 10:15 Dose: 81 mg Budesonide (Pulmicort Respules) 0.25 mg INH RQ12 [facility] Last Admin: 02/09/17 20:00 Dose: 0.25 mg Diltiazem HCl (Cardizem Cd) 360 mg PO DAILY [facility] Last Admin: 02/09/17 10:02 Dose: 360 mg Heparin Sodium (Porcine) (Heparin) 5,000 units SC Q12 [facility] Last Admin: 02/09/17 22:09 Dose: 5,000 units Insulin Human Regular (Novolin R) 0 unit SC ACHS [facility] PRN Reason: Protocol Last Admin: 02/09/17 21:44 Dose: Not Given Methylprednisolone (Solu-Medrol) 40 mg IVP Q8H [facility] Last Admin: 02/09/17 17:23 Dose: 40 mg Gibjl-6-Nfxl Ethyl Esters (Lovaza) 1 gm PO DAILY [facility] Last Admin: 02/09/17 10:03 Dose: 1 gm Ondansetron HCl (Zofran Inj) 4 mg IVP Q6 PRN PRN Reason: Nausea/Vomiting Pantoprazole Sodium (Protonix Ec Tab) 40 mg PO DAILY [facility] Last Admin: 02/09/17 10:01 Dose: 40 mg Promethazine HCl/Dextromethorphan (Phenergan Dm Syrup) 5 ml PO Q6H PRN PRN Reason: Cough Last Admin: 02/08/17 10:06 Dose: 5 ml Repaglinide (Prandin) 1 mg PO TIDAC [facility] Last Admin: 02/09/17 17:25 Dose: 1 mg Rivaroxaban (Xarelto) 10 mg PO DAILY [facility] Last Admin: 02/01/17 10:00 Dose: 10 mg Rosuvastatin Calcium (Crestor) 10 mg PO HS [facility] Last Admin: 02/09/17 22:09 Dose: 10 mg Scopolamine (Transderm-Scop) 1 patch TD Q3D [facility] Last Admin: 02/09/17 17:25 Dose: 1 patch Tamsulosin HCl (Flomax) 0.4 mg PO DAILY [facility] Last Admin: 02/09/17 10:02 Dose: 0.4 mg Tiotropium [place] (Spiriva) 18 mcg INH RQ24 [facility] Last Admin: 02/09/17 08:00 Dose: 18 mcg - Labs Labs: 02/09/17 06:05 02/09/17 06:05 PT 11.8 SECONDS (9.7-12.2) 02/08/17 13:20 INR 1.1 02/08/17 13:20 APTT 24 SECONDS (21-34) D 02/08/17 13:20 Assessment and Plan - Assessment and Plan (Free Text) Assessment: Patient seen and evaluated with the medical program specialist Agree with the management plan
--- NOTE | 2017-02-09 16:03 | CP.PCM.PN ---
Subjective - Date & Time of Evaluation Date of Evaluation: 02/09/17 Time of Evaluation: 12:00 - Subjective Subjective: patient seen and examined. Complaining of dyspnea on exertion Denies any hemoptysis Denies fever chills or denies chest pain Objective - Vital Signs/Intake and Output Vital Signs (last 24 hours): Temp Pulse Resp BP Pulse Ox 97.6 F 69 18 105/65 95 02/09/17 15:00 02/09/17 15:00 02/09/17 15:00 02/09/17 15:00 02/09/17 15:00 Intake and Output: 02/09/17 02/09/17 06:59 18:59 Intake Total 240 Output Total 1000 330 Balance -760 -330 - Medications Medications: Current Medications Acetylcysteine (Acetylcysteine 20%) 4 ml INH RQ6 [facility] Last Admin: 02/09/17 13:31 Dose: 4 ml Albuterol/Ipratropium (Duoneb 3 Mg/0.5 Mg (3 Ml) Ud) 3 ml INH RQ6 [facility] Last Admin: 02/09/17 13:31 Dose: 3 ml Alprazolam (Xanax) 0.5 mg PO TID PRN PRN Reason: Anxiety Last Admin: 02/09/17 10:01 Dose: 0.5 mg Amiodarone HCl (Cordarone) 200 mg PO DAILY [facility] Last Admin: 02/09/17 10:02 Dose: 200 mg Aspirin (Aspirin Chewable) 81 mg PO DAILY [facility] Last Admin: 02/09/17 10:15 Dose: 81 mg Budesonide (Pulmicort Respules) 0.25 mg INH RQ12 [facility] Last Admin: 02/09/17 08:01 Dose: 0.25 mg Diltiazem HCl (Cardizem Cd) 360 mg PO DAILY [facility] Last Admin: 02/09/17 10:02 Dose: 360 mg Heparin Sodium (Porcine) (Heparin) 5,000 units SC Q12 [facility] Last Admin: 02/09/17 10:15 Dose: 5,000 units Insulin Human Regular (Novolin R) 0 unit SC ACHS [facility] PRN Reason: Protocol Methylprednisolone (Solu-Medrol) 40 mg IVP Q8H [facility] Last Admin: 02/09/17 10:02 Dose: 40 mg Wxwjh-7-Kpqa Ethyl Esters (Lovaza) 1 gm PO DAILY [facility] Last Admin: 02/09/17 10:03 Dose: 1 gm Ondansetron HCl (Zofran Inj) 4 mg IVP Q6 PRN PRN Reason: Nausea/Vomiting Pantoprazole Sodium (Protonix Ec Tab) 40 mg PO DAILY [facility] Last Admin: 02/09/17 10:01 Dose: 40 mg Promethazine HCl/Dextromethorphan (Phenergan Dm Syrup) 5 ml PO Q6H PRN PRN Reason: Cough Last Admin: 02/08/17 10:06 Dose: 5 ml Repaglinide (Prandin) 1 mg PO TIDAC [facility] Rivaroxaban (Xarelto) 10 mg PO DAILY [facility] Last Admin: 02/01/17 10:00 Dose: 10 mg Rosuvastatin Calcium (Crestor) 10 mg PO HS [facility] Last Admin: 02/08/17 21:54 Dose: 10 mg Scopolamine (Transderm-Scop) 2 patch TD Q3D [facility] Tamsulosin HCl (Flomax) 0.4 mg PO DAILY [facility] Last Admin: 02/09/17 10:02 Dose: 0.4 mg Tiotropium [place] (Spiriva) 18 mcg INH RQ24 [facility] Last Admin: 02/09/17 08:00 Dose: 18 mcg - Labs Labs: 02/09/17 06:05 02/09/17 06:05 PT 11.8 SECONDS (9.7-12.2) 02/08/17 13:20 INR 1.1 02/08/17 13:20 APTT 24 SECONDS (21-34) D 02/08/17 13:20 - Head Exam Head Exam: ATRAUMATIC, NORMOCEPHALIC - Eye Exam Eye Exam: Normal appearance - ENT Exam ENT Exam: Mucous Membranes Moist - Neck Exam Neck Exam: Normal Inspection - Respiratory Exam Respiratory Exam: Decreased Breath Sounds Assessment and Plan (1) COPD with exacerbation Assessment & Plan: continue nebulizer treatment And steroids Chest x-ray done showed no acute infiltrate Continue present treatment Status: Acute (2) Atrial fibrillation with rapid ventricular response Status: Acute
[2017-02-09] MEDS: Scopolamine 1.5 mg/24 hr Patch TD SCH (17:25)
--- NOTE | 2017-02-09 19:47 | CARD ---
APPROVED REPORT EKG Measurement Heart [id number] MI 128P45 [id number] <Conclusion> Sinus rhythm with premature supraventricular complexes Left axis deviation Right bundle branch block Abnormal ECG
--- NOTE | 2017-02-09 21:49 | CP.PCM.PN ---
Subjective - Date & Time of Evaluation Date of Evaluation: 02/09/17 Time of Evaluation: 12:45 - Subjective Subjective: Patient reports improvement in sob and cough; Objective - Vital Signs/Intake and Output Vital Signs (last 24 hours): Temp Pulse Resp BP Pulse Ox 97.6 F 69 18 105/65 95 02/09/17 15:00 02/09/17 15:00 02/09/17 15:00 02/09/17 15:00 02/09/17 15:00 Intake and Output: 02/09/17 02/10/17 18:59 06:59 Output Total 330 Balance -330 - Medications Medications: Current Medications Acetylcysteine (Acetylcysteine 20%) 4 ml INH RQ6 [facility] Last Admin: 02/09/17 19:59 Dose: 4 ml Albuterol/Ipratropium (Duoneb 3 Mg/0.5 Mg (3 Ml) Ud) 3 ml INH RQ6 [facility] Last Admin: 02/09/17 19:59 Dose: 3 ml Alprazolam (Xanax) 0.5 mg PO TID PRN PRN Reason: Anxiety Last Admin: 02/09/17 10:01 Dose: 0.5 mg Amiodarone HCl (Cordarone) 200 mg PO DAILY [facility] Last Admin: 02/09/17 10:02 Dose: 200 mg Aspirin (Aspirin Chewable) 81 mg PO DAILY [facility] Last Admin: 02/09/17 10:15 Dose: 81 mg Budesonide (Pulmicort Respules) 0.25 mg INH RQ12 [facility] Last Admin: 02/09/17 20:00 Dose: 0.25 mg Diltiazem HCl (Cardizem Cd) 360 mg PO DAILY [facility] Last Admin: 02/09/17 10:02 Dose: 360 mg Heparin Sodium (Porcine) (Heparin) 5,000 units SC Q12 [facility] Last Admin: 02/09/17 10:15 Dose: 5,000 units Insulin Human Regular (Novolin R) 0 unit SC ACHS [facility] PRN Reason: Protocol Last Admin: 02/09/17 21:44 Dose: Not Given Methylprednisolone (Solu-Medrol) 40 mg IVP Q8H [facility] Last Admin: 02/09/17 17:23 Dose: 40 mg Tpmen-4-Wdgf Ethyl Esters (Lovaza) 1 gm PO DAILY [facility] Last Admin: 06/02/17 10:03 Dose: 1 gm Ondansetron HCl (Zofran Inj) 4 mg IVP Q6 PRN PRN Reason: Nausea/Vomiting Pantoprazole Sodium (Protonix Ec Tab) 40 mg PO DAILY [facility] Last Admin: 02/09/17 10:01 Dose: 40 mg Promethazine HCl/Dextromethorphan (Phenergan Dm Syrup) 5 ml PO Q6H PRN PRN Reason: Cough Last Admin: 02/08/17 10:06 Dose: 5 ml Repaglinide (Prandin) 1 mg PO TIDAC [facility] Last Admin: 02/09/17 17:25 Dose: 1 mg Rivaroxaban (Xarelto) 10 mg PO DAILY [facility] Last Admin: 02/01/17 10:00 Dose: 10 mg Rosuvastatin Calcium (Crestor) 10 mg PO HS [facility] Last Admin: 02/08/17 21:54 Dose: 10 mg Scopolamine (Transderm-Scop) 1 patch TD Q3D [facility] Last Admin: 02/09/17 17:25 Dose: 1 patch Tamsulosin HCl (Flomax) 0.4 mg PO DAILY [facility] Last Admin: 02/09/17 10:02 Dose: 0.4 mg Tiotropium [place] (Spiriva) 18 mcg INH RQ24 [facility] Last Admin: 02/09/17 08:00 Dose: 18 mcg - Labs Labs: 02/09/17 06:05 02/09/17 06:05 PT 11.8 SECONDS (9.7-12.2) 02/08/17 13:20 INR 1.1 02/08/17 13:20 APTT 24 SECONDS (21-34) D 02/08/17 13:20 - Constitutional Appears: No Acute Distress - Head Exam Head Exam: NORMOCEPHALIC - Eye Exam Eye Exam: Normal appearance. absent: Scleral icterus - ENT Exam ENT Exam: Mucous Membranes Moist - Respiratory Exam Additional comments: diffuse coarse exp wheezes; - Cardiovascular Exam Additional comments: muffled heart sounds; - GI/Abdominal Exam GI & Abdominal Exam: Soft. absent: Distended, Tenderness - Exam Exam: absent: Bladder Distension - Extremities Exam Extremities Exam: Normal Capillary Refill Additional comments: Left leg edematous; - Skin Skin Exam: Normal Color, Warm. absent: Cyanosis Assessment and Plan (1) Acute renal failure Assessment & Plan: Resolved; pre-renal etiology; monitor; Status: Acute (2) Renal insufficiency Assessment & Plan: CKD stage IIIA, with atrophic R kidney and with significant flucutations in serum creatinine consistent with renovascular disease; monitor, avoid any further decrease in BP; Status: Acute (3) Pulmonary hypertension Assessment & Plan: Likely due to COPD; will hold off on starting diuretics for now as BP still on lower end of normal; Status: Acute (4) Hypertension Assessment & Plan: On cardizem CD 360 mg daily for Afib rate control; as mentioned above, need to avoid dropping BP further; Status: Chronic (5) CAD (coronary artery disease) Assessment & Plan: Non-obstructive CAD; started on high potency statin; should titrate dose upward as tolerated; Status: Acute (6) Iliac aneurysm Assessment & Plan: Surgery to follow as outpatient; likely prudent to avoid aggressive surgical intervention as much as possible from renal perpective; Status: Acute
[2017-02-10] MEDS: MethylPREDNISolone 40 mg Vial IVP SCH ×3 (01:20→17:46)
[2017-02-10] MEDS: Acetylcysteine 20% Inhal Soln (4ml) INH SCH ×4 (02:06→20:33)
[2017-02-10] MEDS: Albuterol-Ipratrop 3 mg / 0.5 (3 ml) UD INH SCH ×3 (02:06→20:33)
--- NOTE | 2017-02-10 06:59 | CP.PCM.PN ---
Subjective - Date & Time of Evaluation Date of Evaluation: 02/10/17 Time of Evaluation: 06:58 Objective - Vital Signs/Intake and Output Vital Signs (last 24 hours): Temp Pulse Resp BP Pulse Ox 97.6 F 67 20 100/63 96 02/09/17 23:40 02/10/17 00:45 02/09/17 23:40 02/09/17 23:40 02/09/17 23:40 Intake and Output: 02/09/17 02/10/17 18:59 06:59 Output Total 330 300 Balance -330 -300 - Medications Medications: Current Medications Acetylcysteine (Acetylcysteine 20%) 4 ml INH RQ6 [facility] Last Admin: 02/10/17 02:06 Dose: 4 ml Albuterol/Ipratropium (Duoneb 3 Mg/0.5 Mg (3 Ml) Ud) 3 ml INH RQ6 [facility] Last Admin: 02/10/17 02:06 Dose: 3 ml Alprazolam (Xanax) 0.5 mg PO TID PRN PRN Reason: Anxiety Last Admin: 02/09/17 10:01 Dose: 0.5 mg Amiodarone HCl (Cordarone) 200 mg PO DAILY [facility] Last Admin: 02/09/17 10:02 Dose: 200 mg Aspirin (Aspirin Chewable) 81 mg PO DAILY [facility] Last Admin: 02/09/17 10:15 Dose: 81 mg Budesonide (Pulmicort Respules) 0.25 mg INH RQ12 [facility] Last Admin: 02/09/17 20:00 Dose: 0.25 mg Diltiazem HCl (Cardizem Cd) 360 mg PO DAILY [facility] Last Admin: 02/09/17 10:02 Dose: 360 mg Heparin Sodium (Porcine) (Heparin) 5,000 units SC Q12 [facility] Last Admin: 02/09/17 22:09 Dose: 5,000 units Insulin Human Regular (Novolin R) 0 unit SC ACHS [facility] PRN Reason: Protocol Last Admin: 02/09/17 21:44 Dose: Not Given Methylprednisolone (Solu-Medrol) 40 mg IVP Q8H [facility] Last Admin: 02/10/17 01:20 Dose: 40 mg Nttng-4-Grap Ethyl Esters (Lovaza) 1 gm PO DAILY [facility] Last Admin: 02/09/17 10:03 Dose: 1 gm Ondansetron HCl (Zofran Inj) 4 mg IVP Q6 PRN PRN Reason: Nausea/Vomiting Pantoprazole Sodium (Protonix Ec Tab) 40 mg PO DAILY [facility] Last Admin: 02/09/17 10:01 Dose: 40 mg Promethazine HCl/Dextromethorphan (Phenergan Dm Syrup) 5 ml PO Q6H PRN PRN Reason: Cough Last Admin: 02/08/17 10:06 Dose: 5 ml Repaglinide (Prandin) 1 mg PO TIDAC [facility] Last Admin: 02/09/17 17:25 Dose: 1 mg Rivaroxaban (Xarelto) 10 mg PO DAILY [facility] Last Admin: 02/01/17 10:00 Dose: 10 mg Rosuvastatin Calcium (Crestor) 10 mg PO HS [facility] Last Admin: 02/09/17 22:09 Dose: 10 mg Scopolamine (Transderm-Scop) 1 patch TD Q3D [facility] Last Admin: 02/09/17 17:25 Dose: 1 patch Tamsulosin HCl (Flomax) 0.4 mg PO DAILY [facility] Last Admin: 02/09/17 10:02 Dose: 0.4 mg Tiotropium [place] (Spiriva) 18 mcg INH RQ24 [facility] Last Admin: 02/09/17 08:00 Dose: 18 mcg - Labs Labs: 02/09/17 06:05 02/09/17 06:05 PT 11.8 SECONDS (9.7-12.2) 02/08/17 13:20 INR 1.1 02/08/17 13:20 APTT 24 SECONDS (21-34) D 02/08/17 13:20
[2017-02-10 07:27] LABS: BASO % 0.2 % (0.0-2.0); LYMPH # 0.1 K/uL (1.0-4.3); LYMPH % 0.8 % (20.0-40.0); MEAN CELL VOLUME 89.5 fL (80.0-94.0); MEAN CORPUSCULAR HEMOGLOBIN 29.2 pg (27.0-31.0); MEAN CORPUSCULAR HGB CONC 32.6 g/dL (33.0-37.0); MEAN PLATELET VOLUME 8.6 fL (7.2-11.7); MONO # 0.4 K/uL (0.0-0.8); MONO % 2.9 % (0.0-10.0); NRBC % 0.1 % (0.0-2.0); PLATELET COUNT 122 K/uL (130-400); RED CELL DISTRIBUTION WIDTH 16.7 % (11.5-14.5); WHITE BLOOD COUNT 12.7 K/uL (4.8-10.8)
[2017-02-10 08:03] LABS: BILIRUBIN,TOTAL 1.2 mg/dL (0.2-1.3)
[2017-02-10 08:04] LABS: ALB/GLOB RATIO 1.2 (1.0-2.1); CALCIUM 7.6 mg/dl (8.6-10.4); MAGNESIUM 1.9 mg/dL (1.6-2.3); PHOSPHOROUS 4.2 mg/dL (2.5-4.5); TOTAL PROTEIN 4.9 g/dL (6.3-8.3)
[2017-02-10] MEDS: (Novolin R) Insulin Human Regular 100 units/ml vial SC SCH ×4 (08:43→21:29)
[2017-02-10] MEDS: Budesonide 0.25 mg/2 ml Inhal Susp UD INH SCH ×2 (08:49→20:35)
[2017-02-10 09:13] LABS: NEUTROPHIL 95 % (50-75); TOTAL CELLS COUNTED 100
[2017-02-10] MEDS: diltiaZEM 180 mg/24 Hours CD Cap PO SCH (10:32)
[2017-02-10] MEDS: Pantoprazole 40 mg EC Tab PO SCH (10:33)
[2017-02-10] MEDS: Omega-3-Acid Ethyl Esters 1 GM Cap PO SCH (10:33)
--- NOTE | 2017-02-10 11:36 | CP.PCM.PN ---
Subjective - Date & Time of Evaluation Date of Evaluation: 02/10/17 Time of Evaluation: 11:35 - Subjective Subjective: no immediate plans to rx right iliac aneurysm complex issue that will require multiple opinions Objective - Vital Signs/Intake and Output Vital Signs (last 24 hours): Temp Pulse Resp BP Pulse Ox 97.6 F 68 20 100/63 96 02/09/17 23:40 02/10/17 10:00 02/09/17 23:40 02/09/17 23:40 02/09/17 23:40 Intake and Output: 02/10/17 02/10/17 06:59 18:59 Intake Total 240 Output Total 500 Balance -260 - Medications Medications: Current Medications Acetylcysteine (Acetylcysteine 20%) 4 ml INH RQ6 [facility] Last Admin: 02/10/17 08:49 Dose: 4 ml Albuterol/Ipratropium (Duoneb 3 Mg/0.5 Mg (3 Ml) Ud) 3 ml INH RQ6 [facility] Last Admin: 02/10/17 08:49 Dose: 3 ml Alprazolam (Xanax) 0.5 mg PO TID PRN PRN Reason: Anxiety Last Admin: 02/09/17 10:01 Dose: 0.5 mg Amiodarone HCl (Cordarone) 200 mg PO DAILY [facility] Last Admin: 02/10/17 10:33 Dose: 200 mg Aspirin (Aspirin Chewable) 81 mg PO DAILY [facility] Last Admin: 02/10/17 10:32 Dose: 81 mg Budesonide (Pulmicort Respules) 0.25 mg INH RQ12 [facility] Last Admin: 02/10/17 08:49 Dose: 0.25 mg Diltiazem HCl (Cardizem Cd) 360 mg PO DAILY [facility] Last Admin: 02/10/17 10:32 Dose: 360 mg Heparin Sodium (Porcine) (Heparin) 5,000 units SC Q12 [facility] Last Admin: 02/10/17 10:33 Dose: 5,000 units Insulin Human Regular (Novolin R) 0 unit SC ACHS [facility] PRN Reason: Protocol Last Admin: 02/10/17 08:43 Dose: 4 unit Methylprednisolone (Solu-Medrol) 40 mg IVP Q8H [facility] Last Admin: 02/10/17 10:33 Dose: 40 mg Xhzkf-9-Fwtr Ethyl Esters (Lovaza) 1 gm PO DAILY [facility] Last Admin: 02/10/17 10:33 Dose: 1 gm Ondansetron HCl (Zofran Inj) 4 mg IVP Q6 PRN PRN Reason: Nausea/Vomiting Pantoprazole Sodium (Protonix Ec Tab) 40 mg PO DAILY [facility] Last Admin: 02/10/17 10:33 Dose: 40 mg Promethazine HCl/Dextromethorphan (Phenergan Dm Syrup) 5 ml PO Q6H PRN PRN Reason: Cough Last Admin: 02/08/17 10:06 Dose: 5 ml Repaglinide (Prandin) 1 mg PO TIDAC [facility] Last Admin: 02/10/17 08:43 Dose: 1 mg Rivaroxaban (Xarelto) 10 mg PO DAILY [facility] Last Admin: 02/01/17 10:00 Dose: 10 mg Rosuvastatin Calcium (Crestor) 10 mg PO HS [facility] Last Admin: 02/09/17 22:09 Dose: 10 mg Scopolamine (Transderm-Scop) 1 patch TD Q3D [facility] Last Admin: 02/09/17 17:25 Dose: 1 patch Tamsulosin HCl (Flomax) 0.4 mg PO DAILY [facility] Last Admin: 02/10/17 10:34 Dose: 0.4 mg Tiotropium [place] (Spiriva) 18 mcg INH RQ24 [facility] Last Admin: 02/09/17 08:00 Dose: 18 mcg - Labs Labs: 02/10/17 07:11 02/10/17 07:11 PT 11.8 SECONDS (9.7-12.2) 02/08/17 13:20 INR 1.1 02/08/17 13:20 APTT 24 SECONDS (21-34) D 02/08/17 13:20
--- NOTE | 2017-02-10 13:35 | CP.PCM.PN ---
Subjective - Date & Time of Evaluation Date of Evaluation: 02/10/17 Time of Evaluation: 12:00 - Subjective Subjective: Medicine Note for Dr. Lomax Pt seen and evaluated at bedside. Pt is comfortable and in no acute distress. Pt states that he is feeling much better and that his cough has improved. Pt denies fever, chills, headache, dizziness, chest pain, palpitations, nausea, vomiting, bowel/bladder pain, or leg pain. Patient continues to have LLE swelling. Objective - Vital Signs/Intake and Output Vital Signs (last 24 hours): Temp Pulse Resp BP Pulse Ox 97.6 F 68 20 100/63 96 02/09/17 23:40 02/10/17 10:00 02/09/17 23:40 02/09/17 23:40 02/09/17 23:40 Intake and Output: 02/10/17 02/10/17 06:59 18:59 Intake Total 240 Output Total 500 Balance -260 - Medications Medications: Current Medications Acetylcysteine (Acetylcysteine 20%) 4 ml INH RQ6 [facility] Last Admin: 02/10/17 13:23 Dose: 4 ml Albuterol/Ipratropium (Duoneb 3 Mg/0.5 Mg (3 Ml) Ud) 3 ml INH RQ6 [facility] Last Admin: 02/10/17 08:49 Dose: 3 ml Alprazolam (Xanax) 0.5 mg PO TID PRN PRN Reason: Anxiety Last Admin: 02/09/17 10:01 Dose: 0.5 mg Amiodarone HCl (Cordarone) 200 mg PO DAILY [facility] Last Admin: 02/10/17 10:33 Dose: 200 mg Aspirin (Aspirin Chewable) 81 mg PO DAILY [facility] Last Admin: 02/10/17 10:32 Dose: 81 mg Budesonide (Pulmicort Respules) 0.25 mg INH RQ12 [facility] Last Admin: 02/10/17 08:49 Dose: 0.25 mg Diltiazem HCl (Cardizem Cd) 360 mg PO DAILY [facility] Last Admin: 02/10/17 10:32 Dose: 360 mg Heparin Sodium (Porcine) (Heparin) 5,000 units SC Q12 [facility] Last Admin: 02/10/17 10:33 Dose: 5,000 units Insulin Human Regular (Novolin R) 0 unit SC ACHS [facility] PRN Reason: Protocol Last Admin: 02/10/17 12:25 Dose: 8 unit Methylprednisolone (Solu-Medrol) 40 mg IVP Q8H [facility] Last Admin: 02/10/17 10:33 Dose: 40 mg Icjyw-0-Baya Ethyl Esters (Lovaza) 1 gm PO DAILY [facility] Last Admin: 02/10/17 10:33 Dose: 1 gm Ondansetron HCl (Zofran Inj) 4 mg IVP Q6 PRN PRN Reason: Nausea/Vomiting Pantoprazole Sodium (Protonix Ec Tab) 40 mg PO DAILY [facility] Last Admin: 02/10/17 10:33 Dose: 40 mg Promethazine HCl/Dextromethorphan (Phenergan Dm Syrup) 5 ml PO Q6H PRN PRN Reason: Cough Last Admin: 02/08/17 10:06 Dose: 5 ml Repaglinide (Prandin) 1 mg PO TIDAC [facility] Last Admin: 02/10/17 12:25 Dose: 1 mg Rivaroxaban (Xarelto) 10 mg PO DAILY [facility] Last Admin: 02/01/17 10:00 Dose: 10 mg Rosuvastatin Calcium (Crestor) 10 mg PO HS [facility] Last Admin: 02/09/17 22:09 Dose: 10 mg Scopolamine (Transderm-Scop) 1 patch TD Q3D [facility] Last Admin: 02/09/17 17:25 Dose: 1 patch Tamsulosin HCl (Flomax) 0.4 mg PO DAILY [facility] Last Admin: 02/10/17 10:34 Dose: 0.4 mg Tiotropium [place] (Spiriva) 18 mcg INH RQ24 [facility] Last Admin: 02/09/17 08:00 Dose: 18 mcg - Labs Labs: 02/10/17 07:11 02/10/17 07:11 PT 11.8 SECONDS (9.7-12.2) 02/08/17 13:20 INR 1.1 02/08/17 13:20 APTT 24 SECONDS (21-34) D 02/08/17 13:20 - Constitutional Appears: No Acute Distress - Head Exam Head Exam: NORMAL INSPECTION, NORMOCEPHALIC - Respiratory Exam Respiratory Exam: Decreased Breath Sounds - Cardiovascular Exam Cardiovascular Exam: REGULAR RHYTHM, RRR - GI/Abdominal Exam GI & Abdominal Exam: Soft, Normal Bowel Sounds. absent: Distended, Tenderness - Extremities Exam Extremities Exam: Normal Inspection, Pedal Edema. absent: Tenderness Additional comments: +1 - Neurological Exam Neurological Exam: Alert, Awake, Oriented x3 - Skin Skin Exam: Dry, Intact, Normal Color, Warm Assessment and Plan - Assessment and Plan (Free Text) Assessment: 81 M with PMH of Dm, COPD, Hyperlipidemia, Abdominal Aortic Aneurysm with Stent , history of paroxysmal afib, presented with SOB and chest pain. Plan: Afib with RVR, wide complex tachycardia Resolved Cardizem 360mg po daily Amiodarone 200mg po daily ASA 81mg po daily Xarelto 10mg po daily - on hold Patient to follow up with Dr Rice outpatient COPD exacerbation with underlying cor pulmonale D dimer 3507 BNP 2560 Troponin negative x 3 CXR: mild venous congestion; R hilar prominence and L central venous catheter; R paratracheal airspace opacity likely represents prominent vasculature. Small nodular denisty at the right lung base. repeat CXR 02/08 no active disease V/Q scan low probability for PE Morphine 1 mg IVP Q4H PRN Solumedrol 40mg IVP q8H Pulmicort 0.25mg INH Q12 Spiriva 18mcg INH Q24 Duoneb 3ml inh RQ6H Acetylcysteine 4ml inh q6 Scopolamine 2 ptach td q3day Phenergan DM 5ml po q6 prn cough blood culture prelim negative ECHO: LV mildly dilated. mild to mod concentric LVH. EF > 55%. L atrium mod dilated. RV systolic pressure estimated at 50-60mmHg. Severe pulmonary HTN. lipid panel WNL TSH/T4 WNL O2 via [place] Cardio consult, Dr. Lafleur, help appreciated Pulm consult, Dr. Hou, help appreciated. Hx CAD RBBB ASA 81mg po daily Crestor 10mg po hs Lovaza 1gm po daily s/p Cath that showed non-obstructing CAD B/l common iliac A aneurysm CT Abd/pelvis w/o contrast: obstructive hydronephrosis on R secondary to markedly enlarged R common iliac A aneurysm measuring up to 8.2cm. Additionally 5cm L common iliac A anurysm. Relatively stable infrarenal abdominal aortic aneurysm R iliac limb, occuluded, chronic Anerysm of [place] common iliac artery b/l to follow up outpatient with Dr Augustine Abdominal Aortic aneurysm with stent [place] types 3 vs 4 AAA s/p bypass graft with 2 iliac limbs, now 4.4cm on CTA to follow up outpatient with Dr Augustine CKD III Nephro consult, Dr. Duran on board Urology Dr. Fernando on board Renal US: severe unilateral R sided hydronephrosis. large R lower quadrant and pelvic mass likely related to findings. Monitor BUN/Cr HTN Amiodarone 200mg PO daily Cardizem 360mg PO daily Diabetes mellitus ISS Prandin 1mg po TIDAC Accuchecks ACHS Prophylactic measure SCDs Protonix 40 mg PO daily Morphine 1mg IVP Q4 prn pain severe Zofran 4mg IVP Q6 PRN nausea/vomiting Xanax 0.5mg po tid prn Heart healthy diet Heparin 5000U SC Q12 Xarelto 10mg po daily- on hold Disposition Waiting for RON placement Plan discussed with Dr. Monie Mccloud DO, PGY1
--- NOTE | 2017-02-10 17:51 | CARD ---
APPROVED REPORT EKG Measurement Heart [id number] <Conclusion> Normal sinus rhythm Left axis deviation Right bundle branch block T wave abnormality, consider lateral ischemia Abnormal ECG
--- NOTE | 2017-02-10 18:04 | CP.PCM.PN ---
Subjective - Date & Time of Evaluation Date of Evaluation: 02/10/17 Time of Evaluation: 14:00 - Subjective Subjective: patient seen and examined. Lying comfortably in no acute distress Denies hemoptys Complaining of slight cough Objective - Vital Signs/Intake and Output Vital Signs (last 24 hours): Temp Pulse Resp BP Pulse Ox 97.7 F 79 20 106/61 90 L 02/10/17 16:49 02/10/17 16:55 02/10/17 16:49 02/10/17 16:49 02/10/17 16:49 Intake and Output: 02/10/17 02/10/17 06:59 18:59 Intake Total 240 Output Total 500 Balance -260 - Medications Medications: Current Medications Acetylcysteine (Acetylcysteine 20%) 4 ml INH RQ6 [facility] Last Admin: 02/10/17 13:23 Dose: 4 ml Albuterol/Ipratropium (Duoneb 3 Mg/0.5 Mg (3 Ml) Ud) 3 ml INH RQ6 [facility] Last Admin: 02/10/17 08:49 Dose: 3 ml Alprazolam (Xanax) 0.5 mg PO TID PRN PRN Reason: Anxiety Last Admin: 02/09/17 10:01 Dose: 0.5 mg Amiodarone HCl (Cordarone) 200 mg PO DAILY [facility] Last Admin: 02/10/17 10:33 Dose: 200 mg Aspirin (Aspirin Chewable) 81 mg PO DAILY [facility] Last Admin: 02/10/17 10:32 Dose: 81 mg Budesonide (Pulmicort Respules) 0.25 mg INH RQ12 [facility] Last Admin: 02/10/17 08:49 Dose: 0.25 mg Diltiazem HCl (Cardizem Cd) 360 mg PO DAILY [facility] Last Admin: 02/10/17 10:32 Dose: 360 mg Heparin Sodium (Porcine) (Heparin) 5,000 units SC Q12 [facility] Last Admin: 02/10/17 10:33 Dose: 5,000 units Insulin Human Regular (Novolin R) 0 unit SC ACHS [facility] PRN Reason: Protocol Last Admin: 02/10/17 17:45 Dose: 10 unit Methylprednisolone (Solu-Medrol) 40 mg IVP Q8H [facility] Last Admin: 02/10/17 17:46 Dose: 40 mg Hhper-8-Paky Ethyl Esters (Lovaza) 1 gm PO DAILY [facility] Last Admin: 02/10/17 10:33 Dose: 1 gm Ondansetron HCl (Zofran Inj) 4 mg IVP Q6 PRN PRN Reason: Nausea/Vomiting Pantoprazole Sodium (Protonix Ec Tab) 40 mg PO DAILY [facility] Last Admin: 02/10/17 10:33 Dose: 40 mg Promethazine HCl/Dextromethorphan (Phenergan Dm Syrup) 5 ml PO Q6H PRN PRN Reason: Cough Last Admin: 02/08/17 10:06 Dose: 5 ml Repaglinide (Prandin) 1 mg PO TIDAC [facility] Last Admin: 02/10/17 17:46 Dose: 1 mg Rivaroxaban (Xarelto) 10 mg PO DAILY [facility] Last Admin: 02/01/17 10:00 Dose: 10 mg Rosuvastatin Calcium (Crestor) 10 mg PO HS [facility] Last Admin: 02/09/17 22:09 Dose: 10 mg Scopolamine (Transderm-Scop) 1 patch TD Q3D [facility] Last Admin: 02/09/17 17:25 Dose: 1 patch Tamsulosin HCl (Flomax) 0.4 mg PO DAILY [facility] Last Admin: 02/10/17 10:34 Dose: 0.4 mg Tiotropium [place] (Spiriva) 18 mcg INH RQ24 [facility] Last Admin: 02/09/17 08:00 Dose: 18 mcg - Labs Labs: 02/10/17 07:11 02/10/17 07:11 PT 11.8 SECONDS (9.7-12.2) 02/08/17 13:20 INR 1.1 02/08/17 13:20 APTT 24 SECONDS (21-34) D 02/08/17 13:20 - Head Exam Head Exam: ATRAUMATIC, NORMOCEPHALIC - Eye Exam Eye Exam: Normal appearance - ENT Exam ENT Exam: Mucous Membranes Moist - Neck Exam Neck Exam: Full ROM, Normal Inspection - Respiratory Exam Respiratory Exam: Clear to Ausculation Bilateral - Cardiovascular Exam Cardiovascular Exam: Irregular Rhythm - GI/Abdominal Exam GI & Abdominal Exam: Soft, Normal Bowel Sounds Assessment and Plan (1) COPD with exacerbation Assessment & Plan: continue nebulizer treatment and steroids for now Status: Acute (2) Atrial fibrillation with rapid ventricular response Status: Acute
--- NOTE | 2017-02-10 19:07 | CP.PCM.PN ---
Subjective - Date & Time of Evaluation Date of Evaluation: 02/10/17 Time of Evaluation: 13:00 - Subjective Subjective: Patient seen and evaluated. No more hemoptysis Comfortable Physical Examination - Constitutional Appears: No Acute Distress - Head Exam Head Exam: ATRAUMATIC, NORMOCEPHALIC - Eye Exam Eye Exam: EOMI, Normal appearance, PERRL Pupil Exam: NORMAL ACCOMODATION - ENT Exam ENT Exam: Mucous Membranes Moist - Neck Exam Additional comments: No carotid bruit - Respiratory Exam Respiratory Exam: Rales, NORMAL BREATHING PATTERN Additional comments: bronchial vesciluar sounds all lung field - Cardiovascular Exam Cardiovascular Exam: REGULAR RHYTHM, +S1, +S2 - GI/Abdominal Exam GI & Abdominal Exam: Soft, Normal Bowel Sounds. absent: Guarding, Rigid - Extremities Exam Extremities Exam: Normal Capillary Refill. absent: Calf Tenderness, Pedal Edema - Back Exam Back Exam: absent: CVA tenderness (L), CVA tenderness (R) - Neurological Exam Neurological Exam: Alert, Awake - Psychiatric Exam Psychiatric exam: Normal Affect, Normal Mood - Skin Skin Exam: Dry, Warm Objective - Vital Signs/Intake and Output Vital Signs (last 24 hours): Temp Pulse Resp BP Pulse Ox 97.7 F 79 20 106/61 90 L 02/10/17 16:49 02/10/17 16:55 02/10/17 16:49 02/10/17 16:49 02/10/17 16:49 - Medications Medications: Current Medications Acetylcysteine (Acetylcysteine 20%) 4 ml INH RQ6 [facility] Last Admin: 02/10/17 13:23 Dose: 4 ml Albuterol/Ipratropium (Duoneb 3 Mg/0.5 Mg (3 Ml) Ud) 3 ml INH RQ6 [facility] Last Admin: 02/10/17 08:49 Dose: 3 ml Alprazolam (Xanax) 0.5 mg PO TID PRN PRN Reason: Anxiety Last Admin: 02/09/17 10:01 Dose: 0.5 mg Amiodarone HCl (Cordarone) 200 mg PO DAILY [facility] Last Admin: 02/10/17 10:33 Dose: 200 mg Aspirin (Aspirin Chewable) 81 mg PO DAILY [facility] Last Admin: 02/10/17 10:32 Dose: 81 mg Budesonide (Pulmicort Respules) 0.25 mg INH RQ12 [facility] Last Admin: 02/10/17 08:49 Dose: 0.25 mg Diltiazem HCl (Cardizem Cd) 360 mg PO DAILY [facility] Last Admin: 02/10/17 10:32 Dose: 360 mg Heparin Sodium (Porcine) (Heparin) 5,000 units SC Q12 [facility] Last Admin: 02/10/17 10:33 Dose: 5,000 units Insulin Human Regular (Novolin R) 0 unit SC ACHS [facility] PRN Reason: Protocol Last Admin: 02/10/17 17:45 Dose: 10 unit Methylprednisolone (Solu-Medrol) 40 mg IVP Q8H [facility] Last Admin: 02/10/17 17:46 Dose: 40 mg Ewsup-0-Mkpl Ethyl Esters (Lovaza) 1 gm PO DAILY [facility] Last Admin: 02/10/17 10:33 Dose: 1 gm Ondansetron HCl (Zofran Inj) 4 mg IVP Q6 PRN PRN Reason: Nausea/Vomiting Pantoprazole Sodium (Protonix Ec Tab) 40 mg PO DAILY [facility] Last Admin: 02/10/17 10:33 Dose: 40 mg Promethazine HCl/Dextromethorphan (Phenergan Dm Syrup) 5 ml PO Q6H PRN PRN Reason: Cough Last Admin: 02/08/17 10:06 Dose: 5 ml Repaglinide (Prandin) 1 mg PO TIDAC [facility] Last Admin: 02/10/17 17:46 Dose: 1 mg Rivaroxaban (Xarelto) 10 mg PO DAILY [facility] Last Admin: 02/01/17 10:00 Dose: 10 mg Rosuvastatin Calcium (Crestor) 10 mg PO HS [facility] Last Admin: 02/09/17 22:09 Dose: 10 mg Scopolamine (Transderm-Scop) 1 patch TD Q3D [facility] Last Admin: 02/09/17 17:25 Dose: 1 patch Tamsulosin HCl (Flomax) 0.4 mg PO DAILY [facility] Last Admin: 02/10/17 10:34 Dose: 0.4 mg Tiotropium [place] (Spiriva) 18 mcg INH RQ24 [facility] Last Admin: 02/09/17 08:00 Dose: 18 mcg - Labs Labs: 02/10/17 07:11 02/10/17 07:11 PT 11.8 SECONDS (9.7-12.2) 02/08/17 13:20 INR 1.1 02/08/17 13:20 APTT 24 SECONDS (21-34) D 02/08/17 13:20 Assessment and Plan - Assessment and Plan (Free Text) Assessment: 81 M with PMH of paroxysmal afib on Eliquis, DM2, COPD/ex-smoker of 50pack-yr, Hyperlipidemia, CKD 3, Abdominal Aortic Aneurysm with Stent, admitted for SOB and COPD exacerbation. CP was 2 months ago and pt could not articulate events leading to CP. SOB most likely from severe pulm HTN shown on echocardiogram. Pt has a Right hydronephrosis (01/30) due to right iliac anuerism. Pt is s/p CREDIT UNDERWRITER for rapid a-fib that turned wide complex tachycardia while on cardizem gtt. Over the weekend, pt was upgraded to ICU for recurrence of afib associated with hypotension to SBP 90s. He was treated by Amio/Cardizem gtt. He was downgraded to telemetry. Pt was on heparin gtt but discontinued due to hemoptysis. A-fib RVR, wide-complex tachycardia - resolved, s/p Cardizem/amio gtt - cardizem CD 360 - CANDACE negative x 3 D/C Amio. Patient has COPD Resume anticoagulation for A Fib (No more hemoptysis) Hx CAD RBBB Ascending aortic anerysm - s/p Cath: Non-obstructing CAD. Ascending aortic anerysm - ASA, cardizem, crestor 10 Oliguric - resolved Watch contrast nephropathy Chronic R kidney hydronehrosis CKD stage 3 DM controlled COPD exacerbation Pulmonary hypertension, severe, RVSP 50-60 Suspicious of PNA, Left base - managed per primary and pulm team - on solumedrol, neb, antitussive Aortic aneurysm, crawley type 3 vs 4 - AAA s/p bypass graft with 2 iliac limbs, now 4.4cm on CTA - R iliac limb, occuluded, chronic - Anerysm of [place] de[place]-ni' common iliac artery b/l - surgery following DVT prophylasix
[2017-02-10] MEDS: Tiotropium 18 mcg Cap For Inhalation INH SCH (20:45)
--- NOTE | 2017-02-10 21:48 | CP.PCM.PN ---
Subjective - Date & Time of Evaluation Date of Evaluation: 02/10/17 Time of Evaluation: 14:00 - Subjective Subjective: Patient reports improvement in sob and cough; Objective - Vital Signs/Intake and Output Vital Signs (last 24 hours): Temp Pulse Resp BP Pulse Ox 97.7 F 79 20 106/61 90 L 02/10/17 16:49 02/10/17 16:55 02/10/17 16:49 02/10/17 16:49 02/10/17 16:49 - Medications Medications: Current Medications Acetylcysteine (Acetylcysteine 20%) 4 ml INH RQ6 [facility] Last Admin: 02/10/17 20:33 Dose: 4 ml Albuterol/Ipratropium (Duoneb 3 Mg/0.5 Mg (3 Ml) Ud) 3 ml INH RQ6 [facility] Last Admin: 02/10/17 20:33 Dose: 3 ml Alprazolam (Xanax) 0.5 mg PO TID PRN PRN Reason: Anxiety Last Admin: 02/09/17 10:01 Dose: 0.5 mg Amiodarone HCl (Cordarone) 200 mg PO DAILY [facility] Last Admin: 02/10/17 10:33 Dose: 200 mg Aspirin (Aspirin Chewable) 81 mg PO DAILY [facility] Last Admin: 02/10/17 10:32 Dose: 81 mg Budesonide (Pulmicort Respules) 0.25 mg INH RQ12 [facility] Last Admin: 02/10/17 20:35 Dose: 0.25 mg Diltiazem HCl (Cardizem Cd) 360 mg PO DAILY [facility] Last Admin: 02/10/17 10:32 Dose: 360 mg Heparin Sodium (Porcine) (Heparin) 5,000 units SC Q12 [facility] Last Admin: 02/10/17 21:47 Dose: 5,000 units Insulin Human Regular (Novolin R) 0 unit SC ACHS [facility] PRN Reason: Protocol Last Admin: 02/10/17 21:29 Dose: Not Given Methylprednisolone (Solu-Medrol) 40 mg IVP Q8H [facility] Last Admin: 02/10/17 17:46 Dose: 40 mg Egmqx-8-Ivjt Ethyl Esters (Lovaza) 1 gm PO DAILY [facility] Last Admin: 02/10/17 10:33 Dose: 1 gm Ondansetron HCl (Zofran Inj) 4 mg IVP Q6 PRN PRN Reason: Nausea/Vomiting Pantoprazole Sodium (Protonix Ec Tab) 40 mg PO DAILY [facility] Last Admin: 02/10/17 10:33 Dose: 40 mg Promethazine HCl/Dextromethorphan (Phenergan Dm Syrup) 5 ml PO Q6H PRN PRN Reason: Cough Last Admin: 02/08/17 10:06 Dose: 5 ml Repaglinide (Prandin) 1 mg PO TIDAC [facility] Last Admin: 02/10/17 17:46 Dose: 1 mg Rivaroxaban (Xarelto) 10 mg PO DAILY [facility] Last Admin: 02/01/17 10:00 Dose: 10 mg Rosuvastatin Calcium (Crestor) 10 mg PO HS [facility] Last Admin: 02/09/17 22:09 Dose: 10 mg Scopolamine (Transderm-Scop) 1 patch TD Q3D [facility] Last Admin: 02/09/17 17:25 Dose: 1 patch Tamsulosin HCl (Flomax) 0.4 mg PO DAILY [facility] Last Admin: 02/10/17 10:34 Dose: 0.4 mg Tiotropium [place] (Spiriva) 18 mcg INH RQ24 [facility] Last Admin: 02/10/17 20:45 Dose: 18 mcg - Labs Labs: 02/10/17 07:11 02/10/17 07:11 PT 11.8 SECONDS (9.7-12.2) 02/08/17 13:20 INR 1.1 02/08/17 13:20 APTT 24 SECONDS (21-34) D 02/08/17 13:20 - Constitutional Appears: Non-toxic, No Acute Distress - Head Exam Head Exam: NORMAL INSPECTION - Eye Exam Eye Exam: Normal appearance. absent: Scleral icterus - ENT Exam ENT Exam: Mucous Membranes Moist - Respiratory Exam Respiratory Exam: Prolonged Expiratory Phase Additional comments: coarse wheezes, somewhat improved; - Cardiovascular Exam Cardiovascular Exam: REGULAR RHYTHM, +S1, +S2 - GI/Abdominal Exam GI & Abdominal Exam: Soft. absent: Distended, Tenderness - Exam Exam: absent: Bladder Distension - Extremities Exam Extremities Exam: Normal Capillary Refill Additional comments: L leg edema - Neurological Exam Neurological Exam: Alert, Awake - Psychiatric Exam Psychiatric exam: Normal Affect, Normal Mood - Skin Skin Exam: Normal Color, Warm. absent: Cyanosis Assessment and Plan (1) Acute renal failure Assessment & Plan: Resolved; pre-renal etiology; need to avoid drops in BP; Status: Acute (2) Renal insufficiency Assessment & Plan: Non-proteinuric CKD likely due to renovascular disease; particularly sensitive to hemodynamic fluctuations; holding off on lasix for now as BP borderline; may have to tolerate creat 1.5-1.6 range as patient needs high cardizem dose for rate control; Status: Acute (3) Pulmonary hypertension Assessment & Plan: Per echo findings; likely due to COPD; holding diuretics for now as mentioned above but should consider repeating echo at a later time to see if pulm htn worsens; Status: Acute (4) Hypertension Assessment & Plan: Low/normal BP; on cardizem CD only; continue per cardio recs; Status: Chronic (5) CAD (coronary artery disease) Assessment & Plan: Non-obstructive disease as well as evidence of multi-level atherosclerotic disease; continue high potency statin and titrate upward as tolerated; Status: Acute (6) Iliac aneurysm Assessment & Plan: Vascular surgery holding off on any acute intervention; monitor; Status: Acute
[2017-02-11] MEDS: MethylPREDNISolone 40 mg Vial IVP SCH ×3 (01:09→17:12)
[2017-02-11] MEDS: Acetylcysteine 20% Inhal Soln (4ml) INH SCH ×4 (01:13→19:20)
[2017-02-11] MEDS: Albuterol-Ipratrop 3 mg / 0.5 (3 ml) UD INH SCH ×4 (01:13→19:20)
--- NOTE | 2017-02-11 02:21 | CP.PCM.PN ---
Subjective - Date & Time of Evaluation Date of Evaluation: 02/11/17 Time of Evaluation: 02:00 - Subjective Subjective: Medicine Note for Dr. Lomax Pt seen and evaluated at bedside. Pt is comfortable and in no acute distress. Pt states that he is feeling much better and that his cough has improved. Admit to lower ext edems but denies fever, chills, headache, dizziness, chest pain, palpitations, nausea, vomiting, bowel/bladder pain, or leg pain. Overnight patient was noted to have a HR into the 140s. Patient was sleeping and was asymptomatic. Within a few minutes the patient's HR returned to the 80s/ 90s. Will administer meds as needed. Objective - Vital Signs/Intake and Output Vital Signs (last 24 hours): Temp Pulse Resp BP Pulse Ox 98 F 142 H 22 106/63 95 02/10/17 22:48 02/10/17 22:48 02/10/17 22:48 02/10/17 22:48 02/11/17 01:11 - Medications Medications: Current Medications Acetylcysteine (Acetylcysteine 20%) 4 ml INH RQ6 [facility] Last Admin: 02/11/17 01:13 Dose: 4 ml Albuterol/Ipratropium (Duoneb 3 Mg/0.5 Mg (3 Ml) Ud) 3 ml INH RQ6 [facility] Last Admin: 02/11/17 01:13 Dose: 3 ml Alprazolam (Xanax) 0.5 mg PO TID PRN PRN Reason: Anxiety Last Admin: 02/09/17 10:01 Dose: 0.5 mg Amiodarone HCl (Cordarone) 200 mg PO DAILY [facility] Last Admin: 02/10/17 10:33 Dose: 200 mg Aspirin (Aspirin Chewable) 81 mg PO DAILY [facility] Last Admin: 02/10/17 10:32 Dose: 81 mg Budesonide (Pulmicort Respules) 0.25 mg INH RQ12 [facility] Last Admin: 02/10/17 20:35 Dose: 0.25 mg Diltiazem HCl (Cardizem Cd) 360 mg PO DAILY [facility] Last Admin: 02/10/17 10:32 Dose: 360 mg Heparin Sodium (Porcine) (Heparin) 5,000 units SC Q12 [facility] Last Admin: 02/10/17 21:47 Dose: 5,000 units Insulin Human Regular (Novolin R) 0 unit SC ACHS [facility] PRN Reason: Protocol Last Admin: 02/10/17 21:29 Dose: Not Given Methylprednisolone (Solu-Medrol) 40 mg IVP Q8H [facility] Last Admin: 02/11/17 01:09 Dose: 40 mg Dubiu-0-Pefj Ethyl Esters (Lovaza) 1 gm PO DAILY [facility] Last Admin: 02/10/17 10:33 Dose: 1 gm Ondansetron HCl (Zofran Inj) 4 mg IVP Q6 PRN PRN Reason: Nausea/Vomiting Pantoprazole Sodium (Protonix Ec Tab) 40 mg PO DAILY [facility] Last Admin: 02/10/17 10:33 Dose: 40 mg Promethazine HCl/Dextromethorphan (Phenergan Dm Syrup) 5 ml PO Q6H PRN PRN Reason: Cough Last Admin: 02/08/17 10:06 Dose: 5 ml Repaglinide (Prandin) 1 mg PO TIDAC [facility] Last Admin: 02/10/17 17:46 Dose: 1 mg Rivaroxaban (Xarelto) 10 mg PO DAILY [facility] Last Admin: 02/01/17 10:00 Dose: 10 mg Rosuvastatin Calcium (Crestor) 10 mg PO HS [facility] Last Admin: 02/09/17 22:09 Dose: 10 mg Scopolamine (Transderm-Scop) 1 patch TD Q3D [facility] Last Admin: 02/09/17 17:25 Dose: 1 patch Tamsulosin HCl (Flomax) 0.4 mg PO DAILY [facility] Last Admin: 02/10/17 10:34 Dose: 0.4 mg Tiotropium [place] (Spiriva) 18 mcg INH RQ24 [facility] Last Admin: 02/10/17 20:45 Dose: 18 mcg - Labs Labs: 02/10/17 07:11 02/10/17 07:11 PT 11.8 SECONDS (9.7-12.2) 02/08/17 13:20 INR 1.1 02/08/17 13:20 APTT 24 SECONDS (21-34) D 02/08/17 13:20 - Constitutional Appears: Non-toxic, No Acute Distress - Head Exam Head Exam: ATRAUMATIC, NORMAL INSPECTION - Eye Exam Eye Exam: EOMI - ENT Exam ENT Exam: Mucous Membranes Moist - Respiratory Exam Respiratory Exam: Clear to Ausculation Bilateral, NORMAL BREATHING PATTERN. absent: Accessory Muscle Use, Respiratory Distress - Cardiovascular Exam Cardiovascular Exam: REGULAR RHYTHM, +S1, +S2 - GI/Abdominal Exam GI & Abdominal Exam: Soft, Normal Bowel Sounds. absent: Distended, Firm, Guarding, Tenderness - Extremities Exam Extremities Exam: Normal Inspection. absent: Calf Tenderness - Back Exam Back Exam: NORMAL INSPECTION. absent: CVA tenderness (L), CVA tenderness (R), paraspinal tenderness - Neurological Exam Neurological Exam: Alert, Awake, Oriented x3 - Psychiatric Exam Psychiatric exam: Normal Affect, Normal Mood - Skin Skin Exam: Dry, Intact, Normal Color, Warm Assessment and Plan - Assessment and Plan (Free Text) Assessment: 81 M with PMH of Dm, COPD, Hyperlipidemia, Abdominal Aortic Aneurysm with Stent , history of paroxysmal afib, presented with SOB and chest pain. Plan: Afib with RVR, wide complex tachycardia Resolved Cardizem 360mg po daily Amiodarone 200mg po daily ASA 81mg po daily Xarelto 10mg po daily - on hold Patient to follow up with Dr Rice outpatient COPD exacerbation with underlying cor pulmonale D dimer 3507 BNP 2560 Troponin negative x 3 CXR: mild venous congestion; R hilar prominence and L central venous catheter; R paratracheal airspace opacity likely represents prominent vasculature. Small nodular denisty at the right lung base. repeat CXR 02/08 no active disease V/Q scan low probability for PE Morphine 1 mg IVP Q4H PRN Solumedrol 40mg IVP q8H Pulmicort 0.25mg INH Q12 Sp[facility] 18mcg INH Q24 Duoneb 3ml inh RQ6H Acetylcysteine 4ml inh q6 Scopolamine 2 ptach td q3day Phenergan DM 5ml po q6 prn cough blood culture prelim negative ECHO: LV mildly dilated. mild to mod concentric LVH. EF > 55%. L atrium mod dilated. RV systolic pressure estimated at 50-60mmHg. Severe pulmonary HTN. lipid panel WNL TSH/T4 WNL O2 via [place] Cardio consult, Dr. Lafleur, help appreciated Pulm consult, Dr. Hou, help appreciated. Hx CAD RBBB ASA 81mg po daily Crestor 10mg po hs Lovaza 1gm po daily s/p Cath that showed non-obstructing CAD B/l common iliac A aneurysm CT Abd/pelvis w/o contrast: obstructive hydronephrosis on R secondary to markedly enlarged R common iliac A aneurysm measuring up to 8.2cm. Additionally 5cm L common iliac A anurysm. Relatively stable infrarenal abdominal aortic aneurysm R iliac limb, occuluded, chronic Anerysm of [place] common iliac artery b/l to follow up outpatient with Dr Augustine Abdominal Aortic aneurysm with stent [place] types 3 vs 4 AAA s/p bypass graft with 2 iliac limbs, now 4.4cm on CTA to follow up outpatient with Dr Augustine CKD III Nephro consult, Dr. Duran on board Urology Dr. Fernando on board Renal US: severe unilateral R sided hydronephrosis. large R lower quadrant and pelvic mass likely related to findings. Monitor BUN/Cr HTN Amiodarone 200mg PO daily Cardizem 360mg PO daily Diabetes mellitus ISS Prandin 1mg po TIDAC Accuchecks ACHS Prophylactic measure SCDs Protonix 40 mg PO daily Morphine 1mg IVP Q4 prn pain severe Zofran 4mg IVP Q6 PRN nausea/vomiting Xanax 0.5mg po tid prn Heart healthy diet Heparin 5000U SC Q12 Xarelto 10mg po daily- on hold Disposition Waiting for RON placement Managment per Dr. Lomax
--- NOTE | 2017-02-11 07:56 | CP.PCM.PN ---
Subjective - Date & Time of Evaluation Date of Evaluation: 02/11/17 Time of Evaluation: 07:50 Objective - Vital Signs/Intake and Output Vital Signs (last 24 hours): Temp Pulse Resp BP Pulse Ox 97.7 F 106 H 20 111/62 95 02/10/17 23:31 02/10/17 23:31 02/10/17 23:31 02/10/17 23:31 02/11/17 05:59 - Medications Medications: Current Medications Acetylcysteine (Acetylcysteine 20%) 4 ml INH RQ6 [facility] Last Admin: 02/11/17 01:13 Dose: 4 ml Albuterol/Ipratropium (Duoneb 3 Mg/0.5 Mg (3 Ml) Ud) 3 ml INH RQ6 [facility] Last Admin: 02/11/17 01:13 Dose: 3 ml Alprazolam (Xanax) 0.5 mg PO TID PRN PRN Reason: Anxiety Last Admin: 02/09/17 10:01 Dose: 0.5 mg Amiodarone HCl (Cordarone) 200 mg PO DAILY [facility] Last Admin: 02/10/17 10:33 Dose: 200 mg Aspirin (Aspirin Chewable) 81 mg PO DAILY [facility] Last Admin: 02/10/17 10:32 Dose: 81 mg Budesonide (Pulmicort Respules) 0.25 mg INH RQ12 [facility] Last Admin: 02/10/17 20:35 Dose: 0.25 mg Diltiazem HCl (Cardizem Cd) 360 mg PO DAILY [facility] Last Admin: 02/10/17 10:32 Dose: 360 mg Heparin Sodium (Porcine) (Heparin) 5,000 units SC Q12 [facility] Last Admin: 02/10/17 21:47 Dose: 5,000 units Insulin Human Regular (Novolin R) 0 unit SC ACHS [facility] PRN Reason: Protocol Last Admin: 02/10/17 21:29 Dose: Not Given Methylprednisolone (Solu-Medrol) 40 mg IVP Q8H [facility] Last Admin: 02/11/17 01:09 Dose: 40 mg Mttrc-9-Glne Ethyl Esters (Lovaza) 1 gm PO DAILY [facility] Last Admin: 02/10/17 10:33 Dose: 1 gm Ondansetron HCl (Zofran Inj) 4 mg IVP Q6 PRN PRN Reason: Nausea/Vomiting Pantoprazole Sodium (Protonix Ec Tab) 40 mg PO DAILY [facility] Last Admin: 02/10/17 10:33 Dose: 40 mg Promethazine HCl/Dextromethorphan (Phenergan Dm Syrup) 5 ml PO Q6H PRN PRN Reason: Cough Last Admin: 02/08/17 10:06 Dose: 5 ml Repaglinide (Prandin) 1 mg PO TIDAC [facility] Last Admin: 02/10/17 17:46 Dose: 1 mg Rivaroxaban (Xarelto) 10 mg PO DAILY [facility] Last Admin: 02/01/17 10:00 Dose: 10 mg Rosuvastatin Calcium (Crestor) 10 mg PO HS [facility] Last Admin: 02/09/17 22:09 Dose: 10 mg Scopolamine (Transderm-Scop) 1 patch TD Q3D [facility] Last Admin: 02/09/17 17:25 Dose: 1 patch Tamsulosin HCl (Flomax) 0.4 mg PO DAILY [facility] Last Admin: 02/10/17 10:34 Dose: 0.4 mg Tiotropium [place] (Spiriva) 18 mcg INH RQ24 [facility] Last Admin: 02/10/17 20:45 Dose: 18 mcg - Labs Labs: 02/10/17 07:11 02/10/17 07:11 PT 11.8 SECONDS (9.7-12.2) 02/08/17 13:20 INR 1.1 02/08/17 13:20 APTT 24 SECONDS (21-34) D 02/08/17 13:20
[2017-02-11 08:00] LABS: BILIRUBIN,TOTAL 1.5 mg/dL (0.2-1.3); POTASSIUM 4.6 mmol/L (3.6-5.2); TOTAL PROTEIN 5.1 g/dL (6.3-8.3)
[2017-02-11 08:02] LABS: ALB/GLOB RATIO 1.1 (1.0-2.1)
[2017-02-11 08:05] LABS: HEMATOCRIT 27.8 % (35.0-51.0); LYMPH # 0.1 K/uL (1.0-4.3); LYMPH % 0.4 % (20.0-40.0); MEAN CELL VOLUME 90.2 fL (80.0-94.0); MEAN CORPUSCULAR HEMOGLOBIN 29.1 pg (27.0-31.0); MEAN CORPUSCULAR HGB CONC 32.2 g/dL (33.0-37.0); MEAN PLATELET VOLUME 8.7 fL (7.2-11.7); MONO # 0.5 K/uL (0.0-0.8); MONO % 3.2 % (0.0-10.0); PLATELET COUNT 132 K/uL (130-400); RED CELL DISTRIBUTION WIDTH 16.3 % (11.5-14.5); WHITE BLOOD COUNT 16.6 K/uL (4.8-10.8)
[2017-02-11] MEDS: (Novolin R) Insulin Human Regular 100 units/ml vial SC SCH ×4 (08:26→21:55)
[2017-02-11] MEDS: Budesonide 0.25 mg/2 ml Inhal Susp UD INH SCH ×2 (08:27→19:20)
[2017-02-11] MEDS: diltiaZEM 180 mg/24 Hours CD Cap PO SCH (08:45)
[2017-02-11 08:57] LABS: NEUTROPHIL 87 % (50-75); TOTAL CELLS COUNTED 100
[2017-02-11 09:04] LABS: LARGE PLATELETS PRESENT
[2017-02-11] MEDS: Pantoprazole 40 mg EC Tab PO SCH (09:09)
[2017-02-11] MEDS: Omega-3-Acid Ethyl Esters 1 GM Cap PO SCH (09:10)
[2017-02-11] MEDS ORDERED: Digoxin 250 mcg (0.25 mg) Tab PO STA (11:26)
--- NOTE | 2017-02-11 11:28 | CP.PCM.PN ---
Objective - Vital Signs/Intake and Output Vital Signs (last 24 hours): Temp Pulse Resp BP Pulse Ox 97.6 F 154 H 20 103/60 90 L 02/11/17 07:00 02/11/17 07:00 02/11/17 07:00 02/11/17 08:55 02/11/17 07:00 Intake and Output: 02/11/17 02/11/17 06:59 18:59 Intake Total 200 Output Total 200 Balance 0 - Medications Medications: Current Medications Acetylcysteine (Acetylcysteine 20%) 4 ml INH RQ6 [facility] Last Admin: 02/11/17 08:27 Dose: 4 ml Albuterol/Ipratropium (Duoneb 3 Mg/0.5 Mg (3 Ml) Ud) 3 ml INH RQ6 [facility] Last Admin: 02/11/17 08:27 Dose: 3 ml Alprazolam (Xanax) 0.5 mg PO TID PRN PRN Reason: Anxiety Last Admin: 02/09/17 10:01 Dose: 0.5 mg Amiodarone HCl (Cordarone) 200 mg PO DAILY [facility] Last Admin: 02/11/17 09:09 Dose: 200 mg Aspirin (Aspirin Chewable) 81 mg PO DAILY [facility] Last Admin: 02/11/17 09:09 Dose: 81 mg Budesonide (Pulmicort Respules) 0.25 mg INH RQ12 [facility] Last Admin: 02/11/17 08:27 Dose: 0.25 mg Digoxin (Lanoxin) 0.25 mg PO STAT [facility]A Stop: 02/11/17 11:27 Diltiazem HCl (Cardizem Cd) 360 mg PO DAILY [facility] Last Admin: 02/11/17 08:45 Dose: 360 mg Heparin Sodium (Porcine) (Heparin) 5,000 units SC Q12 [facility] Last Admin: 02/11/17 09:10 Dose: 5,000 units Insulin Human Regular (Novolin R) 0 unit SC ACHS [facility] PRN Reason: Protocol Last Admin: 02/11/17 08:26 Dose: 2 unit Methylprednisolone (Solu-Medrol) 40 mg IVP Q8H [facility] Last Admin: 02/11/17 09:24 Dose: 40 mg Gjgvo-9-Rtnw Ethyl Esters (Lovaza) 1 gm PO DAILY [facility] Last Admin: 02/11/17 09:10 Dose: 1 gm Ondansetron HCl (Zofran Inj) 4 mg IVP Q6 PRN PRN Reason: Nausea/Vomiting Pantoprazole Sodium (Protonix Ec Tab) 40 mg PO DAILY [facility] Last Admin: 02/11/17 09:09 Dose: 40 mg Promethazine HCl/Dextromethorphan (Phenergan Dm Syrup) 5 ml PO Q6H PRN PRN Reason: Cough Last Admin: 02/08/17 10:06 Dose: 5 ml Repaglinide (Prandin) 1 mg PO TIDAC [facility] Last Admin: 02/11/17 08:27 Dose: 1 mg Rivaroxaban (Xarelto) 10 mg PO DAILY [facility] Last Admin: 02/01/17 10:00 Dose: 10 mg Rosuvastatin Calcium (Crestor) 10 mg PO HS [facility] Last Admin: 02/09/17 22:09 Dose: 10 mg Scopolamine (Transderm-Scop) 1 patch TD Q3D [facility] Last Admin: 02/09/17 17:25 Dose: 1 patch Tamsulosin HCl (Flomax) 0.4 mg PO DAILY [facility] Last Admin: 02/11/17 09:09 Dose: 0.4 mg Tiotropium [place] (Spiriva) 18 mcg INH RQ24 [facility] Last Admin: 02/10/17 20:45 Dose: 18 mcg - Labs Labs: 02/11/17 07:26 02/11/17 07:26 PT 11.8 SECONDS (9.7-12.2) 02/08/17 13:20 INR 1.1 02/08/17 13:20 APTT 24 SECONDS (21-34) D 02/08/17 13:20
[2017-02-11] MEDS ORDERED: Digoxin 500 mcg/2ml (0.5 mg/2ml) Inj ONE (11:29)
--- NOTE | 2017-02-11 11:42 | RAD ---
HISTORY: rales on physical exam COMPARISON: Comparison made with prior radiographs dated 02/08/2017. FINDINGS: LUNGS: No change left-sided MediPort. Patchy opacity seen in the left lower lung field which may represent some combination of atelectasis/infiltrate and small effusion. PLEURA: No significant pleural effusion identified, no pneumothorax apparent. CARDIOVASCULAR: Mild cardiomegaly. OSSEOUS STRUCTURES: No significant abnormalities. VISUALIZED UPPER ABDOMEN: Normal. OTHER FINDINGS: None. IMPRESSION: Patchy opacity seen in the left lower lung field which may represent some combination of atelectasis/infiltrate and small effusion. Mild cardiomegaly.
[2017-02-11] MEDS: Tiotropium 18 mcg Cap For Inhalation INH SCH (12:12)
[2017-02-11 12:27] LABS: BASO % 0.3 % (0.0-2.0); HEMATOCRIT 28.2 % (35.0-51.0); LYMPH % 0.3 % (20.0-40.0); MEAN CELL VOLUME 89.3 fL (80.0-94.0); MEAN CORPUSCULAR HEMOGLOBIN 28.5 pg (27.0-31.0); MEAN CORPUSCULAR HGB CONC 31.9 g/dL (33.0-37.0); MEAN PLATELET VOLUME 8.4 fL (7.2-11.7); MONO # 0.4 K/uL (0.0-0.8); MONO % 2.3 % (0.0-10.0); NRBC % 0.1 % (0.0-2.0); PLATELET COUNT 136 K/uL (130-400); RED CELL DISTRIBUTION WIDTH 17.5 % (11.5-14.5)
[2017-02-11 12:36] LABS: POTASSIUM 4.6 mmol/L (3.6-5.2)
[2017-02-11 12:38] LABS: ALB/GLOB RATIO 1.2 (1.0-2.1); BILIRUBIN,TOTAL 1.8 mg/dL (0.2-1.3); TOTAL PROTEIN 5.3 g/dL (6.3-8.3)
[2017-02-11 12:39] LABS: CALCIUM 7.8 mg/dl (8.6-10.4); MAGNESIUM 1.9 mg/dL (1.6-2.3); PHOSPHOROUS 4.8 mg/dL (2.5-4.5)
[2017-02-11 12:54] LABS: NEUTROPHIL 96 % (50-75)
[2017-02-11 12:55] LABS: TOTAL CELLS COUNTED 100
--- NOTE | 2017-02-11 12:55 | PN ---
DATE: 02/11/2017 An 81-year-old male with past medical history of COPD, diabetes, hyperlipidemia , abdominal aortic aneurysm status post repair, paroxysmal atrial fibrillation and CKD, admitted with COPD exacerbation. Nephrology following for renal insufficiency/acute renal failure. The patient continues to report improvement in shortness of breath this morning as well as cough. However, subsequent to my encounter with him, had a rapid response called for SVT which converted to AFib with rapid ventricular rate. PHYSICAL EXAMINATION: VITAL SIGNS: This morning, blood pressure 108/68, heart rate 154, respirations 20, temperature 97.6, O2 sat 90% on O2 via nasal cannula. GENERAL: No distress, lying comfortably in bed, able to communicate coherently , in full sentences. HEENT: Moist mucous membranes. Nonicteric. NECK: No JVD. RESPIRATORY: Improving expiratory wheezes. No inspiratory rales. HEART: S1, S2 normal, regular rate and rhythm (during my exam). ABDOMEN: Soft, nontender, nondistended. GENITOURINARY: No bladder distention. EXTREMITIES: Left leg edema. SKIN: Warm, normal capillary refill. PSYCHIATRIC: Normal mood, normal affect. LABORATORIES: This morning, CBC: WBC 16.6, hemoglobin 9.0, hematocrit 27.8, platelets 132. Chemistry panel: Sodium 132, potassium 4.6, chloride 98, bicarb 31, BUN 51, creatinine 1.7, glucose 123, calcium 8.0, T-bili 1.5, albumin 2.7. Chest x-ray directly visualized, report mentioning left basal opacity, possible atelectasis/effusion/infiltrate. ASSESSMENT: 1. Acute renal failure, acute kidney injury on chronic kidney disease stage IIIA. Prerenal etiology with patient continuing to have hemodynamically mediated fluctuations in serum creatinine. Issue is patient with low normal blood pressure compared to his baseline with the need for atrial fibrillation rate control that is likely causing more decreased blood pressure. The patient also with breakthrough rapid ventricular response despite being on rate control. On exam, does not appear to be in volume excess and despite the mention of pleural effusion on chest x-ray, does not have vascular congestion. The main benefit from lasix would be to decrease right sided pressures as echo mentions cor pulmonale, but diuresis may further exacerbate his renal insufficiency. If volume status is questionable, may benefit from right heart catheterization. Will discuss with cardiology. 2. Chronic kidney disease stage II-IIIA, nonproteinuric kidney disease. As mentioned above, patient is especially susceptible to hemodynamic changes. 3. Atrial fibrillation/hypertension. Again, with bouts of breakthrough rapid ventricular rate despite being on rate control medications. Does not appear to have room to add further rate control medications as even when patient is in regular rate, his blood pressure is marginal. May benefit from ablation procedure. Will discuss with EP, death clearance coordinator. 4. Urinary retention. The patient with 200 mL on postvoid bladder scan and consistent with his history of likely benign prostatic hypertrophy. Already on Flomax 0.4 mg daily. Can increase to 0.8 mg as well as add finasteride 5 mg daily. 5. Electrolyte imbalances. The patient with mild hyponatremia. Will check urine osmolality, but likely has some component of syndrome of inappropriate antidiuretic hormone secretion as he appears relatively euvolemic. On the other hand, he may be sensing volume depletion at the level of the kidney. Continue status quo. Dante Duran MD cc: [id number] TT: 02/11/2017 12:55:03 Confirmation # [id number] Dictation # [id number] en MTDD
--- NOTE | 2017-02-11 13:12 | CP.PCM.PN ---
Subjective - Date & Time of Evaluation Date of Evaluation: 02/11/17 Time of Evaluation: 11:50 - Subjective Subjective: FACILITIES MAINTENANCE MANAGER- House resident note Patient was found to be in SVT, HR in 150-60s, and was de-saturating to 88%. Patient was given Adenosine 6mg and it broke momentarily, before returning to SVT. Cardizem 15mg IVP was push administered, decreased to low 100s. BP was 129/ 75. Patient returned to A fib/flutter as per EKG. Patient was started on Cardizem drip, patient returned to normal sinus rhythm. Patient was given Digoxin 0.25mg. Patients repeat BP was 129/75, HR remained in low 100s. Patient was left on nonrebreather, O2 sat 99%. Patient was started on Zithromax and ceftriaxone. Blood cultures were ordered. Dr. Lomax was notified. Objective - Vital Signs/Intake and Output Vital Signs (last 24 hours): Temp Pulse Resp BP Pulse Ox 97.6 F 116 H 20 105/63 92 L 02/11/17 07:00 02/11/17 12:00 02/11/17 12:00 02/11/17 12:00 02/11/17 12:00 Intake and Output: 02/11/17 02/11/17 06:59 18:59 Intake Total 200 Output Total 200 Balance 0 - Medications Medications: Current Medications Acetylcysteine (Acetylcysteine 20%) 4 ml INH RQ6 [facility] Last Admin: 02/11/17 08:27 Dose: 4 ml Albuterol/Ipratropium (Duoneb 3 Mg/0.5 Mg (3 Ml) Ud) 3 ml INH RQ6 [facility] Last Admin: 02/11/17 08:27 Dose: 3 ml Alprazolam (Xanax) 0.5 mg PO TID PRN PRN Reason: Anxiety Last Admin: 02/09/17 10:01 Dose: 0.5 mg Amiodarone HCl (Cordarone) 200 mg PO DAILY [facility] Last Admin: 02/11/17 09:09 Dose: 200 mg Aspirin (Aspirin Chewable) 81 mg PO DAILY [facility] Last Admin: 02/11/17 09:09 Dose: 81 mg Budesonide (Pulmicort Respules) 0.25 mg INH RQ12 [facility] Last Admin: 02/11/17 08:27 Dose: 0.25 mg Heparin Sodium (Porcine) (Heparin) 5,000 units SC Q12 [facility] Last Admin: 02/11/17 09:10 Dose: 5,000 units Diltiazem HCl 125 mg/ Sodium (Chloride) 125 mls @ 5 mls/hr IV .Q24H [facility]; 5 MG/ HR PRN Reason: Protocol Azithromycin 500 mg/ Sodium (Chloride) 250 mls @ 250 mls/hr IVPB DAILY [facility] Ceftriaxone Sodium 1 gm/ (Sodium Chloride) 100 mls @ 100 mls/hr IVPB Q12H [facility] Insulin Human Regular (Novolin R) 0 unit SC ACHS [facility] PRN Reason: Protocol Last Admin: 02/11/17 08:26 Dose: 2 unit Methylprednisolone (Solu-Medrol) 40 mg IVP Q8H [facility] Last Admin: 02/11/17 09:24 Dose: 40 mg Lhinr-1-Pikd Ethyl Esters (Lovaza) 1 gm PO DAILY [facility] Last Admin: 02/11/17 09:10 Dose: 1 gm Ondansetron HCl (Zofran Inj) 4 mg IVP Q6 PRN PRN Reason: Nausea/Vomiting Pantoprazole Sodium (Protonix Ec Tab) 40 mg PO DAILY [facility] Last Admin: 02/11/17 09:09 Dose: 40 mg Promethazine HCl/Dextromethorphan (Phenergan Dm Syrup) 5 ml PO Q6H PRN PRN Reason: Cough Last Admin: 02/08/17 10:06 Dose: 5 ml Repaglinide (Prandin) 1 mg PO TIDAC [facility] Last Admin: 02/11/17 08:27 Dose: 1 mg Rivaroxaban (Xarelto) 10 mg PO DAILY [facility] Last Admin: 02/01/17 10:00 Dose: 10 mg Rosuvastatin Calcium (Crestor) 10 mg PO HS [facility] Last Admin: 02/09/17 22:09 Dose: 10 mg Scopolamine (Transderm-Scop) 1 patch TD Q3D [facility] Last Admin: 02/09/17 17:25 Dose: 1 patch Tamsulosin HCl (Flomax) 0.4 mg PO DAILY [facility] Last Admin: 02/11/17 09:09 Dose: 0.4 mg Tiotropium [place] (Spiriva) 18 mcg INH RQ24 [facility] Last Admin: 02/11/17 12:12 Dose: 18 mcg - Labs Labs: 02/11/17 12:24 02/11/17 12:24 PT 11.8 SECONDS (9.7-12.2) 02/08/17 13:20 INR 1.1 02/08/17 13:20 APTT 24 SECONDS (21-34) D 02/08/17 13:20
[2017-02-11 13:24] VITALS: PULSE 130
[2017-02-11] MEDS: Azithromycin 500 MG in Sodium Chloride 0.9% 250 ML IVPB SCH (14:06)
[2017-02-11 17:25] LABS: RBC URINE 11 /hpf (0-3); URINE BACTERIA OCC (<OCC); URINE BILIRUBIN NEGATIVE (NEGATIVE); URINE BLOOD 2+ (NEGATIVE); URINE COLOR Yellow (YELLOW); URINE GLUCOSE (UA) 1+ mg/dL (Normal); URINE KETONE NEGATIVE (NEGATIVE); URINE LEUKOCYTE ESTERASE TRACE Leu/uL (Negative); URINE PROTEIN NEGATIVE (NEGATIVE); WBC URINE 3 /hpf (0-5)
--- NOTE | 2017-02-11 20:14 | CARDCATH ---
PROCEDURE DATE: 02/07/2017 PROCEDURES: 1. Left heart catheterization. 2. Coronary angiogram. 3. Abdominal aortogram. REFERRING PHYSICIANS: 1. Dr. Fracisco Lomax. 2. Dr. Antonio Horn. PERFORMING PHYSICIAN: Dr. Maxi Lafleur. CLINICAL INDICATIONS: 1. Preop cardiac workup. 2. Coronary artery disease. 3. Peripheral vascular disease. 4. History of abdominal aortic aneurysm status post endograft. 5. Hyperlipidemia. DESCRIPTION OF PROCEDURE: After informed consent, patient was prepped and draped in the usual sterile fashion and 2% lidocaine was given in the right wrist for local anesthesia. Using micropuncture technique, 6-Serbian sheath was introduced into right radial artery. Using the usual diagnostic catheter, left heart catheterization and coronary angiogram were performed. Abdominal aortogram and iliac runoff were performed. FINDINGS: 1. Left main coronary artery has 20% ostial stenosis. 2. LAD and diagonal branches are patent. 3. Left circumflex and obtuse marginal branches are patent. 4. Right coronary artery is ectatic. There is a coronary aneurysm in the mid right coronary artery. PDA has 50% stenosis. 5. Abdominal angiogram has revealed abdominal aortic aneurysm. Right iliac artery is 100% occluded. ASSESSMENT: 1. Nonobstructive coronaries. Posterior descending artery has a 50% stenosis. Right coronary artery aneurysm. 2. The patient is status post abdominal aortic aneurysm repair. Abdominal angiogram has revealed 100% occlusion of the right iliac artery. All the findings were discussed with the vascular surgeon, Dr. Antonio Horn. Maxi Lafleur MD cc: [id number] TT: 02/11/2017 20:14:15 ln MTDD
--- NOTE | 2017-02-11 21:31 | CARD ---
APPROVED REPORT EKG Measurement Heart [id number] <Conclusion> Sinus rhythm with premature atrial complexes Low voltage QRS Right bundle branch block Abnormal ECG
--- NOTE | 2017-02-11 21:35 | CP.PCM.PN ---
Subjective - Date & Time of Evaluation Date of Evaluation: 02/11/17 Time of Evaluation: 15:10 - Subjective Subjective: Events noted. S/P Rapid response for Rapid a Fib On IV Cardizem Physical Examination - Constitutional Appears: Non-toxic, No Acute Distress - Head Exam Head Exam: ATRAUMATIC, NORMAL INSPECTION - Eye Exam Eye Exam: EOMI - ENT Exam ENT Exam: Mucous Membranes Moist - Respiratory Exam Respiratory Exam: Clear to Ausculation Bilateral, NORMAL BREATHING PATTERN. absent: Accessory Muscle Use, Respiratory Distress - Cardiovascular Exam Cardiovascular Exam: REGULAR RHYTHM, +S1, +S2 - GI/Abdominal Exam GI & Abdominal Exam: Soft, Normal Bowel Sounds. absent: Distended, Firm, Guarding, Tenderness - Extremities Exam Extremities Exam: Normal Inspection. absent: Calf Tenderness - Back Exam Back Exam: NORMAL INSPECTION. absent: CVA tenderness (L), CVA tenderness (R), paraspinal tenderness - Neurological Exam Neurological Exam: Alert, Awake, Oriented x3 - Psychiatric Exam Psychiatric exam: Normal Affect, Normal Mood - Skin Skin Exam: Dry, Intact, Normal Color, Warm Objective - Vital Signs/Intake and Output Vital Signs (last 24 hours): Temp Pulse Resp BP Pulse Ox 97.6 F 68 20 95/58 L 89 L 02/11/17 16:33 02/11/17 19:06 02/11/17 16:33 02/11/17 16:33 02/11/17 16:33 Intake and Output: 02/11/17 02/12/17 18:59 06:59 Intake Total 260 Output Total 1500 Balance -1240 - Medications Medications: Current Medications Acetylcysteine (Acetylcysteine 20%) 4 ml INH RQ6 [facility] Last Admin: 02/11/17 19:20 Dose: 4 ml Albuterol/Ipratropium (Duoneb 3 Mg/0.5 Mg (3 Ml) Ud) 3 ml INH RQ6 [facility] Last Admin: 02/11/17 19:20 Dose: 3 ml Alprazolam (Xanax) 0.5 mg PO TID PRN PRN Reason: Anxiety Last Admin: 02/09/17 10:01 Dose: 0.5 mg Amiodarone HCl (Cordarone) 200 mg PO DAILY [facility] Last Admin: 02/11/17 09:09 Dose: 200 mg Aspirin (Aspirin Chewable) 81 mg PO DAILY [facility] Last Admin: 02/11/17 09:09 Dose: 81 mg Budesonide (Pulmicort Respules) 0.25 mg INH RQ12 [facility] Last Admin: 02/11/17 19:20 Dose: 0.25 mg Carvedilol (Coreg) 6.25 mg PO BID [facility] Last Admin: 02/11/17 17:25 Dose: Not Given Furosemide (Lasix) 40 mg IVP DAILY [facility] Azithromycin 500 mg/ Sodium (Chloride) 250 mls @ 250 mls/hr IVPB DAILY [facility] Last Admin: 02/11/17 14:06 Dose: 250 mls/hr Ceftriaxone Sodium 1 gm/ (Sodium Chloride) 100 mls @ 100 mls/hr IVPB Q12H [facility] Last Admin: 02/11/17 13:00 Dose: 100 mls/hr Insulin Human Regular (Novolin R) 0 unit SC ACHS [facility] PRN Reason: Protocol Last Admin: 02/11/17 17:39 Dose: 8 unit Methylprednisolone (Solu-Medrol) 40 mg IVP Q8H [facility] Last Admin: 02/11/17 17:12 Dose: 40 mg [id number]-5-[id number] Ethyl Esters (Lovaza) 1 gm PO DAILY [facility] Last Admin: 02/11/17 09:10 Dose: 1 gm Ondansetron HCl (Zofran Inj) 4 mg IVP Q6 PRN PRN Reason: Nausea/Vomiting Pantoprazole Sodium (Protonix Ec Tab) 40 mg PO DAILY [facility] Last Admin: 02/11/17 09:09 Dose: 40 mg Promethazine HCl/Dextromethorphan (Phenergan Dm Syrup) 5 ml PO Q6H PRN PRN Reason: Cough Last Admin: 02/08/17 10:06 Dose: 5 ml Repaglinide (Prandin) 1 mg PO TIDAC [facility] Last Admin: 02/11/17 17:39 Dose: 1 mg Rivaroxaban (Xarelto) 15 mg PO DAILY [facility] Rosuvastatin Calcium (Crestor) 10 mg PO HS [facility] Last Admin: 02/11/17 21:14 Dose: 10 mg Scopolamine (Transderm-Scop) 1 patch TD Q3D [facility] Last Admin: 02/09/17 17:25 Dose: 1 patch Tamsulosin HCl (Flomax) 0.4 mg PO DAILY [facility] Last Admin: 02/11/17 09:09 Dose: 0.4 mg Tiotropium [place] (Spiriva) 18 mcg INH RQ24 [facility] Last Admin: 02/11/17 12:12 Dose: 18 mcg - Labs Labs: 02/11/17 12:24 02/11/17 12:24 PT 11.8 SECONDS (9.7-12.2) 02/08/17 13:20 INR 1.1 02/08/17 13:20 APTT 24 SECONDS (21-34) D 02/08/17 13:20 Assessment and Plan - Assessment and Plan (Free Text) Assessment: 81 M with PMH of Dm, COPD, Hyperlipidemia, Abdominal Aortic Aneurysm with Stent , history of paroxysmal afib, presented with SOB and chest pain. Plan: Afib with RVR, wide complex tachycardia Resolved cardizem IV ASA 81mg po daily Xarelto 10mg po daily - on hold Patient to follow up with Dr Rice outpatient COPD exacerbation with underlying cor pulmonale D dimer 3507 BNP 2560 Troponin negative x 3 CXR: mild venous congestion; R hilar prominence and L central venous catheter; R paratracheal airspace opacity likely represents prominent vasculature. Small nodular denisty at the right lung base. repeat CXR 02/08 no active disease V/Q scan low probability for PE Morphine 1 mg IVP Q4H PRN Solumedrol 40mg IVP q8H Pulmicort 0.25mg INH Q12 Spiriva 18mcg INH Q24 Duoneb 3ml inh RQ6H Acetylcysteine 4ml inh q6 Scopolamine 2 ptach td q3day Phenergan DM 5ml po q6 prn cough blood culture prelim negative ECHO: LV mildly dilated. mild to mod concentric LVH. EF > 55%. L atrium mod dilated. RV systolic pressure estimated at 50-60mmHg. Severe pulmonary HTN. lipid panel WNL TSH/T4 WNL O2 via [place] Cardio consult, Dr. Lafleur, help appreciated Pulm consult, Dr. Hou, help appreciated. Hx CAD RBBB ASA 81mg po daily Crestor 10mg po hs Lovaza 1gm po daily s/p Cath that showed non-obstructing CAD B/l common iliac A aneurysm CT Abd/pelvis w/o contrast: obstructive hydronephrosis on R secondary to markedly enlarged R common iliac A aneurysm measuring up to 8.2cm. Additionally 5cm L common iliac A anurysm. 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 Duran on board Urology Dr. Fernando on board Renal US: severe unilateral R sided hydronephrosis. large R lower quadrant and pelvic mass likely related to findings. Monitor BUN/Cr HTN Amiodarone 200mg PO daily Cardizem 360mg PO daily Diabetes mellitus ISS Prandin 1mg po TIDAC Accuchecks ACHS Prophylactic measure SCDs Protonix 40 mg PO daily Morphine 1mg IVP Q4 prn pain severe Zofran 4mg IVP Q6 PRN nausea/vomiting Xanax 0.5mg po tid prn Heart healthy diet Heparin 5000U SC Q12 Xarelto 10mg po daily- on hold
[2017-02-12] MEDS: Albuterol-Ipratrop 3 mg / 0.5 (3 ml) UD INH SCH ×4 (01:39→19:21)
[2017-02-12] MEDS: Acetylcysteine 20% Inhal Soln (4ml) INH SCH ×4 (01:39→19:21)
[2017-02-12] MEDS ORDERED: (Novolog) Insulin Aspart, Recombinant 100 u/ml 10 ml vial SC ONE (02:10)
[2017-02-12] MEDS: MethylPREDNISolone 40 mg Vial IVP SCH ×3 (02:20→17:06)
[2017-02-12] MEDS ORDERED: (Novolin R) Insulin Human Regular 100 units/ml vial SC ONE (02:28)
[2017-02-12] MEDS: Promethazine DM 6.25 mg-15 mg/5 ml Syrup PO PRN (05:06)
[2017-02-12 07:26] LABS: HEMATOCRIT 26.5 % (35.0-51.0); LYMPH # 0.1 K/uL (1.0-4.3); MEAN CORPUSCULAR HGB CONC 32.9 g/dL (33.0-37.0); NRBC % 0.1 % (0.0-2.0); WHITE BLOOD COUNT 10.9 K/uL (4.8-10.8)
[2017-02-12 07:35] LABS: LYMPH % 0.5 % (20.0-40.0); MEAN CELL VOLUME 89.6 fL (80.0-94.0); MEAN CORPUSCULAR HEMOGLOBIN 29.5 pg (27.0-31.0); MEAN PLATELET VOLUME 8.7 fL (7.2-11.7); MONO # 0.3 K/uL (0.0-0.8); MONO % 3.2 % (0.0-10.0); PLATELET COUNT 130 K/uL (130-400); RED CELL DISTRIBUTION WIDTH 16.7 % (11.5-14.5)
[2017-02-12 08:07] LABS: POTASSIUM 4.4 mmol/L (3.6-5.2)
[2017-02-12 08:09] LABS: BILIRUBIN,TOTAL 0.8 mg/dL (0.2-1.3)
[2017-02-12] MEDS: (Novolin R) Insulin Human Regular 100 units/ml vial SC SCH ×4 (08:09→22:06)
[2017-02-12 08:10] LABS: ALB/GLOB RATIO 1.1 (1.0-2.1); CALCIUM 7.5 mg/dl (8.6-10.4)
[2017-02-12] MEDS: Tiotropium 18 mcg Cap For Inhalation INH SCH (08:34)
[2017-02-12] MEDS: Budesonide 0.25 mg/2 ml Inhal Susp UD INH SCH ×2 (08:35→19:21)
[2017-02-12 08:40] LABS: NUCLEATED RED BLOOD CELL 1 % (0-0); TOTAL CELLS COUNTED 100
[2017-02-12 08:41] LABS: NEUTROPHIL 94 % (50-75)
--- NOTE | 2017-02-12 09:09 | CP.PCM.PN ---
<Manjit Chou - Last Filed: 02/12/17 09:22> Subjective - Date & Time of Evaluation Date of Evaluation: 02/12/17 Time of Evaluation: 09:06 - Subjective Subjective: Progress Note for Dr. Rice Pt seen and examined at bedside. No acute events overnight as per nursing. Pt with heart rate up to 130's, given IVP cardizem. Otherwise, heart rate has been in the 70's overnight. Pt no longer on IV cardizem for rate control. Denies any CP at this time. Objective - Vital Signs/Intake and Output Vital Signs (last 24 hours): Temp Pulse Resp BP Pulse Ox 97.5 F L 72 18 106/65 93 L 02/12/17 07:05 02/12/17 07:05 02/12/17 07:05 02/12/17 07:05 02/12/17 07:05 Intake and Output: 02/12/17 02/12/17 06:59 18:59 Intake Total 150 Output Total 1100 Balance -950 - Medications Medications: Current Medications Acetylcysteine (Acetylcysteine 20%) 4 ml INH RQ6 [facility] Last Admin: 02/12/17 08:34 Dose: 4 ml Albuterol/Ipratropium (Duoneb 3 Mg/0.5 Mg (3 Ml) Ud) 3 ml INH RQ6 [facility] Last Admin: 02/12/17 08:34 Dose: 3 ml Alprazolam (Xanax) 0.5 mg PO TID PRN PRN Reason: Anxiety Last Admin: 02/09/17 10:01 Dose: 0.5 mg Aspirin (Aspirin Chewable) 81 mg PO DAILY [facility] Last Admin: 02/11/17 09:09 Dose: 81 mg Budesonide (Pulmicort Respules) 0.25 mg INH RQ12 [facility] Last Admin: 02/12/17 08:35 Dose: 0.25 mg Carvedilol (Coreg) 12 mg PO BID [facility] Furosemide (Lasix) 40 mg IVP DAILY [facility] Azithromycin 500 mg/ Sodium (Chloride) 250 mls @ 250 mls/hr IVPB DAILY [facility] Last Admin: 02/11/17 14:06 Dose: 250 mls/hr Ceftriaxone Sodium 1 gm/ (Sodium Chloride) 100 mls @ 100 mls/hr IVPB Q12H [facility] Last Admin: 02/12/17 00:32 Dose: 100 mls/hr Insulin Human Regular (Novolin R) 0 unit SC ACHS [facility] PRN Reason: Protocol Last Admin: 02/12/17 08:09 Dose: 6 unit Methylprednisolone (Solu-Medrol) 40 mg IVP Q8H [facility] Last Admin: 02/12/17 02:20 Dose: 40 mg Ddcyk-6-[id number] Ethyl Esters (Lovaza) 1 gm PO DAILY [facility] Last Admin: 02/11/17 09:10 Dose: 1 gm Ondansetron HCl (Zofran Inj) 4 mg IVP Q6 PRN PRN Reason: Nausea/Vomiting Pantoprazole Sodium (Protonix Ec Tab) 40 mg PO DAILY [facility] Last Admin: 02/11/17 09:09 Dose: 40 mg Promethazine HCl/Dextromethorphan (Phenergan Dm Syrup) 5 ml PO Q6H PRN PRN Reason: Cough Last Admin: 02/12/17 05:06 Dose: 5 ml Repaglinide (Prandin) 1 mg PO TIDAC [facility] Last Admin: 02/12/17 08:36 Dose: 1 mg Rivaroxaban (Xarelto) 15 mg PO DAILY [facility] Rosuvastatin Calcium (Crestor) 10 mg PO HS [facility] Last Admin: 02/11/17 21:14 Dose: 10 mg Scopolamine (Transderm-Scop) 1 patch TD Q3D [facility] Last Admin: 02/09/17 17:25 Dose: 1 patch Tamsulosin HCl (Flomax) 0.4 mg PO DAILY [facility] Last Admin: 02/11/17 09:09 Dose: 0.4 mg Tiotropium [place] (Spiriva) 18 mcg INH RQ24 [facility] Last Admin: 02/12/17 08:34 Dose: 18 mcg - Labs Labs: 02/12/17 07:15 02/12/17 07:15 PT 11.8 SECONDS (9.7-12.2) 02/08/17 13:20 INR 1.1 02/08/17 13:20 APTT 24 SECONDS (21-34) D 02/08/17 13:20 - Constitutional Appears: Non-toxic, No Acute Distress - Head Exam Head Exam: ATRAUMATIC, NORMAL INSPECTION, NORMOCEPHALIC - Respiratory Exam Respiratory Exam: NORMAL BREATHING PATTERN. absent: Rhonchi, Wheezes - Cardiovascular Exam Cardiovascular Exam: RRR, +S1, +S2 - GI/Abdominal Exam GI & Abdominal Exam: Soft, Normal Bowel Sounds. absent: Tenderness - Neurological Exam Neurological Exam: Alert, Awake Assessment and Plan (1) Atrial fibrillation with rapid ventricular response Assessment & Plan: A-fib overnight, given IVP cardizem Cardiac cath showed nonobstructive CAD Pt hemodynamically stable at this time Will hold anticoagulation due to hx of hemoptysis, no episodes overnight Continue ASA Coreg increased to 12 mg BID Status: Acute (2) AAA (abdominal aortic aneurysm) Assessment & Plan: Hx of AAA repair, Right illiac artery completely occulded AAA - 4.4 cm Hemodynamically stable Continue with BP control, Coreg dose increased to 12 mg BID. Status: Chronic <Dyana Rice A - Last Filed: 02/12/17 11:31> Objective - Vital Signs/Intake and Output Vital Signs (last 24 hours): Temp Pulse Resp BP Pulse Ox 97.5 F L 72 18 103/66 93 L 02/12/17 07:05 02/12/17 07:05 02/12/17 07:05 02/12/17 10:07 02/12/17 07:05 Intake and Output: 02/12/17 02/12/17 06:59 18:59 Intake Total 150 Output Total 1100 Balance -950 - Medications Medications: Current Medications Acetylcysteine (Acetylcysteine 20%) 4 ml INH RQ6 [facility] Last Admin: 02/12/17 08:34 Dose: 4 ml Albuterol/Ipratropium (Duoneb 3 Mg/0.5 Mg (3 Ml) Ud) 3 ml INH RQ6 [facility] Last Admin: 02/12/17 08:34 Dose: 3 ml Alprazolam (Xanax) 0.5 mg PO TID PRN PRN Reason: Anxiety Last Admin: 02/09/17 10:01 Dose: 0.5 mg Amiodarone HCl (Cordarone) 200 mg PO DAILY [facility] Last Admin: 02/12/17 10:05 Dose: 200 mg Aspirin (Aspirin Chewable) 81 mg PO DAILY [facility] Last Admin: 02/12/17 10:05 Dose: 81 mg Budesonide (Pulmicort Respules) 0.25 mg INH RQ12 [facility] Last Admin: 02/12/17 08:35 Dose: 0.25 mg Carvedilol (Coreg) 12.5 mg PO BID [facility] Last Admin: 02/12/17 10:06 Dose: 12.5 mg Furosemide (Lasix) 40 mg IVP DAILY [facility] Last Admin: 02/12/17 10:07 Dose: 40 mg Azithromycin 500 mg/ Sodium (Chloride) 250 mls @ 250 mls/hr IVPB DAILY [facility] Last Admin: 02/12/17 10:02 Dose: 250 mls/hr Ceftriaxone Sodium 1 gm/ (Sodium Chloride) 100 mls @ 100 mls/hr IVPB Q12H [facility] Last Admin: 02/12/17 00:32 Dose: 100 mls/hr Insulin Human Regular (Novolin R) 0 unit SC ACHS [facility] PRN Reason: Protocol Last Admin: 02/12/17 08:09 Dose: 6 unit Methylprednisolone (Solu-Medrol) 40 mg IVP Q8H [facility] Last Admin: 02/12/17 10:05 Dose: 40 mg Nbeix-5-Cmkc Ethyl Esters (Lovaza) 1 gm PO DAILY [facility] Last Admin: 02/12/17 10:05 Dose: 1 gm Ondansetron HCl (Zofran Inj) 4 mg IVP Q6 PRN PRN Reason: Nausea/Vomiting Pantoprazole Sodium (Protonix Ec Tab) 40 mg PO DAILY [facility] Last Admin: 02/12/17 10:04 Dose: 40 mg Promethazine HCl/Dextromethorphan (Phenergan Dm Syrup) 5 ml PO Q6H PRN PRN Reason: Cough Last Admin: 02/12/17 05:06 Dose: 5 ml Repaglinide (Prandin) 1 mg PO TIDAC [facility] Last Admin: 02/12/17 08:36 Dose: 1 mg Rivaroxaban (Xarelto) 15 mg PO DAILY [facility] Last Admin: 02/12/17 10:06 Dose: 15 mg Rosuvastatin Calcium (Crestor) 10 mg PO HS [facility] Last Admin: 02/11/17 21:14 Dose: 10 mg Scopolamine (Transderm-Scop) 1 patch TD Q3D [facility] Last Admin: 02/09/17 17:25 Dose: 1 patch Tamsulosin HCl (Flomax) 0.4 mg PO DAILY [facility] Last Admin: 02/12/17 10:05 Dose: 0.4 mg Tiotropium [place] (Spiriva) 18 mcg INH RQ24 [facility] Last Admin: 02/12/17 08:34 Dose: 18 mcg - Labs Labs: 02/12/17 07:15 02/12/17 07:15 PT 11.8 SECONDS (9.7-12.2) 02/08/17 13:20 INR 1.1 02/08/17 13:20 APTT 24 SECONDS (21-34) D 02/08/17 13:20 Attending/Attestation - Attestation I have personally seen and examined this patient.: Yes I have fully participated in the care of the patient.: Yes I have reviewed all pertinent clinical information, including history, physical exam and plan: Yes Notes (Text): 02/12/17 11:31 On PO cardizem with coreg amiodorone stable
--- NOTE | 2017-02-12 09:18 | CP.PCM.PN ---
Subjective - Date & Time of Evaluation Date of Evaluation: 02/12/17 Time of Evaluation: 09:13 - Subjective Subjective: PGY-[address] Lomax Pt seen and examined at bedside. Nursing reports pt was taken off cardizem drip yesterday, and PO meds not restarted. Review of tele monitor shows pt going into afib overnight. He was given Cardizem IVP by overnight hospitalist team. Cardizem PO restarted this AM. Pt is comfortable and in no acute distress. Pt states that he is feeling much better and that his cough has improved. Pt reports no chest pain, palpitations, SOB at this time. Pt is pending authorization from insurance company before discharge to [facility]. Objective - Vital Signs/Intake and Output Vital Signs (last 24 hours): Temp Pulse Resp BP Pulse Ox 97.5 F L 72 18 106/65 93 L 02/12/17 07:05 02/12/17 07:05 02/12/17 07:05 02/12/17 07:05 02/12/17 07:05 Intake and Output: 02/12/17 02/12/17 06:59 18:59 Intake Total 150 Output Total 1100 Balance -950 - Medications Medications: Current Medications Acetylcysteine (Acetylcysteine 20%) 4 ml INH RQ6 [facility] Last Admin: 02/12/17 08:34 Dose: 4 ml Albuterol/Ipratropium (Duoneb 3 Mg/0.5 Mg (3 Ml) Ud) 3 ml INH RQ6 [facility] Last Admin: 02/12/17 08:34 Dose: 3 ml Alprazolam (Xanax) 0.5 mg PO TID PRN PRN Reason: Anxiety Last Admin: 02/09/17 10:01 Dose: 0.5 mg Aspirin (Aspirin Chewable) 81 mg PO DAILY [facility] Last Admin: 02/11/17 09:09 Dose: 81 mg Budesonide (Pulmicort Respules) 0.25 mg INH RQ12 [facility] Last Admin: 02/12/17 08:35 Dose: 0.25 mg Carvedilol (Coreg) 12 mg PO BID [facility] Furosemide (Lasix) 40 mg IVP DAILY [facility] Azithromycin 500 mg/ Sodium (Chloride) 250 mls @ 250 mls/hr IVPB DAILY [facility] Last Admin: 02/11/17 14:06 Dose: 250 mls/hr Ceftriaxone Sodium 1 gm/ (Sodium Chloride) 100 mls @ 100 mls/hr IVPB Q12H [facility] Last Admin: 02/12/17 00:32 Dose: 100 mls/hr Insulin Human Regular (Novolin R) 0 unit SC ACHS [facility] PRN Reason: Protocol Last Admin: 02/12/17 08:09 Dose: 6 unit Methylprednisolone (Solu-Medrol) 40 mg IVP Q8H [facility] Last Admin: 02/12/17 02:20 Dose: 40 mg Naopm-5-Sgwv Ethyl Esters (Lovaza) 1 gm PO DAILY [facility] Last Admin: 02/11/17 09:10 Dose: 1 gm Ondansetron HCl (Zofran Inj) 4 mg IVP Q6 PRN PRN Reason: Nausea/Vomiting Pantoprazole Sodium (Protonix Ec Tab) 40 mg PO DAILY [facility] Last Admin: 02/11/17 09:09 Dose: 40 mg Promethazine HCl/Dextromethorphan (Phenergan Dm Syrup) 5 ml PO Q6H PRN PRN Reason: Cough Last Admin: 02/12/17 05:06 Dose: 5 ml Repaglinide (Prandin) 1 mg PO TIDAC [facility] Last Admin: 02/12/17 08:36 Dose: 1 mg Rivaroxaban (Xarelto) 15 mg PO DAILY [facility] Rosuvastatin Calcium (Crestor) 10 mg PO HS [facility] Last Admin: 02/11/17 21:14 Dose: 10 mg Scopolamine (Transderm-Scop) 1 patch TD Q3D [facility] Last Admin: 02/09/17 17:25 Dose: 1 patch Tamsulosin HCl (Flomax) 0.4 mg PO DAILY [facility] Last Admin: 02/11/17 09:09 Dose: 0.4 mg Tiotropium [place] (Spiriva) 18 mcg INH RQ24 [facility] Last Admin: 02/12/17 08:34 Dose: 18 mcg - Labs Labs: 02/12/17 07:15 02/12/17 07:15 PT 11.8 SECONDS (9.7-12.2) 02/08/17 13:20 INR 1.1 02/08/17 13:20 APTT 24 SECONDS (21-34) D 02/08/17 13:20 - Constitutional Appears: Non-toxic, No Acute Distress - Head Exam Head Exam: ATRAUMATIC, NORMAL INSPECTION, NORMOCEPHALIC - Eye Exam Eye Exam: EOMI Pupil Exam: PERRL - ENT Exam ENT Exam: Mucous Membranes Moist - Respiratory Exam Respiratory Exam: Rhonchi, Wheezes. absent: Accessory Muscle Use, Clear to Ausculation Bilateral - Cardiovascular Exam Cardiovascular Exam: REGULAR RHYTHM, +S1, +S2 - GI/Abdominal Exam GI & Abdominal Exam: Soft, Normal Bowel Sounds. absent: Tenderness - Extremities Exam Extremities Exam: Calf Tenderness, Normal Inspection, Pedal Edema (1+) - Back Exam Back Exam: absent: CVA tenderness (L), CVA tenderness (R) - Neurological Exam Neurological Exam: Alert, Awake, Oriented x3 - Psychiatric Exam Psychiatric exam: Normal Affect - Skin Skin Exam: Normal Color, Warm Assessment and Plan - Assessment and Plan (Free Text) Assessment: 81 M with PMH of Dm, COPD, Hyperlipidemia, Abdominal Aortic Aneurysm with Stent , history of paroxysmal afib, presented with SOB and chest pain. Plan: Afib with RVR, wide complex tachycardia Paroxysmal Afib Start Coreg 12.5 mg PO BID Cardizem 360mg po daily Amiodarone 200mg po daily ASA 81mg po daily Xarelto 15mg po daily Patient to follow up with Dr Rice outpatient COPD exacerbation with underlying cor pulmonale D dimer 3507 - V/Q scan low probability for PE BNP 2560 Troponin negative x 3 CXR (02/11/17): Patchy opacity in left lower lung field which may represent some combination of atelectasis/infiltrate and small effusion. Afebrile, WBC count decreasing (16.6 yesterday to 10.9 today) - CXR improved since admission blood culture prelim negative ECHO (01/30/17): LV mildly dilated. mild to mod concentric LVH. EF > 55%. L atrium mod dilated. RV systolic pressure estimated at 50-60mmHg. Severe pulmonary HTN. lipid panel WNL TSH/T4 WNL f/u ABG Morphine 1 mg IVP Q4H PRN Solumedrol 40mg IVP q8H Pulmicort 0.25mg INH Q12 Spiriva 18mcg INH Q24 Duoneb 3ml inh RQ6H Acetylcysteine 4ml inh q6 Scopolamine 2 ptach td q3day Phenergan DM 5ml po q6 prn cough O2 via [place] Cardio consult, Dr. Lafleur, help appreciated Pulm consult, Dr. Hou, help appreciated. PNA vs Atelectasis CXR (02/11/17): Patchy opacity in left lower lung field which may represent some combination of atelectasis/infiltrate and small effusion. Afebrile, WBC count decreasing (16.6 yesterday to 10.9 today) Azithromycin 500mg IV daily Ceftriaxone 1gm Q12H Leukocytosis WBC 10.9 on AM labs, decreased from 16.6 yesterday CXR (02/11/17): Patchy opacity in left lower lung field which may represent some combination of atelectasis/infiltrate and small effusion. Blood Cx (02/11/17): Gram positive cocci. - per DR. Lomax, believed to be contaminated sample, will wait for constitutional symptoms before redrawing Hx CAD RBBB ASA 81mg po daily Crestor 10mg po hs Lovaza 1gm po daily s/p Cath that showed non-obstructing CAD B/l common iliac A aneurysm CT Abd/pelvis w/o contrast: obstructive hydronephrosis on R secondary to markedly enlarged R common iliac A aneurysm measuring up to 8.2cm. Additionally 5cm L common iliac A anurysm. 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 Duran on board Urology Dr. Fernando on board Renal US: severe unilateral R sided hydronephrosis. large R lower quadrant and pelvic mass likely related to findings. Monitor BUN/Cr HTN Well-controlled Amiodarone 200mg PO daily Cardizem 360mg PO daily Diabetes mellitus ISS Prandin 1mg po TIDAC Accuchecks ACHS Prophylactic measure SCDs Protonix 40 mg PO daily Morphine 1mg IVP Q4 prn pain severe Zofran 4mg IVP Q6 PRN nausea/vomiting Xanax 0.5mg po tid prn Heart healthy diet Heparin 5000U SC Q12 Xarelto 15mg po daily Disposition Waiting authorization for [facility] placement Managment per Dr. Monie Briones, PGY-1
[2017-02-12] MEDS: Azithromycin 500 MG in Sodium Chloride 0.9% 250 ML IVPB SCH (10:02)
[2017-02-12] MEDS: Pantoprazole 40 mg EC Tab PO SCH (10:04)
[2017-02-12] MEDS: Omega-3-Acid Ethyl Esters 1 GM Cap PO SCH (10:05)
--- NOTE | 2017-02-12 11:51 | CP.PCM.PN ---
Subjective - Date & Time of Evaluation Date of Evaluation: 02/12/17 Time of Evaluation: 09:45 - Subjective Subjective: patient seen and examined. Complaining of slight cough but no hemoptysis Breathing much improved Lying comfortably in no acute distress Objective - Vital Signs/Intake and Output Vital Signs (last 24 hours): Temp Pulse Resp BP Pulse Ox 97.5 F L 72 18 103/66 93 L 02/12/17 07:05 02/12/17 07:05 02/12/17 07:05 02/12/17 10:07 02/12/17 07:05 Intake and Output: 02/12/17 02/12/17 06:59 18:59 Intake Total 150 Output Total 1100 Balance -950 - Medications Medications: Current Medications Acetylcysteine (Acetylcysteine 20%) 4 ml INH RQ6 [facility] Last Admin: 02/12/17 08:34 Dose: 4 ml Albuterol/Ipratropium (Duoneb 3 Mg/0.5 Mg (3 Ml) Ud) 3 ml INH RQ6 [facility] Last Admin: 02/12/17 08:34 Dose: 3 ml Alprazolam (Xanax) 0.5 mg PO TID PRN PRN Reason: Anxiety Last Admin: 02/09/17 10:01 Dose: 0.5 mg Amiodarone HCl (Cordarone) 200 mg PO DAILY [facility] Last Admin: 02/12/17 10:05 Dose: 200 mg Aspirin (Aspirin Chewable) 81 mg PO DAILY [facility] Last Admin: 02/12/17 10:05 Dose: 81 mg Budesonide (Pulmicort Respules) 0.25 mg INH RQ12 [facility] Last Admin: 02/12/17 08:35 Dose: 0.25 mg Carvedilol (Coreg) 12.5 mg PO BID [facility] Last Admin: 02/12/17 10:06 Dose: 12.5 mg Furosemide (Lasix) 40 mg IVP DAILY [facility] Last Admin: 02/12/17 10:07 Dose: 40 mg Azithromycin 500 mg/ Sodium (Chloride) 250 mls @ 250 mls/hr IVPB DAILY [facility] Last Admin: 02/12/17 10:02 Dose: 250 mls/hr Ceftriaxone Sodium 1 gm/ (Sodium Chloride) 100 mls @ 100 mls/hr IVPB Q12H [facility] Last Admin: 02/12/17 11:37 Dose: 100 mls/hr Insulin Human Regular (Novolin R) 0 unit SC ACHS [facility] PRN Reason: Protocol Last Admin: 02/12/17 08:09 Dose: 6 unit Methylprednisolone (Solu-Medrol) 40 mg IVP Q8H [facility] Last Admin: 02/12/17 10:05 Dose: 40 mg Mqrbw-[id number] Ethyl Esters (Lovaza) 1 gm PO DAILY [facility] Last Admin: 02/12/17 10:05 Dose: 1 gm Ondansetron HCl (Zofran Inj) 4 mg IVP Q6 PRN PRN Reason: Nausea/Vomiting Pantoprazole Sodium (Protonix Ec Tab) 40 mg PO DAILY [facility] Last Admin: 02/12/17 10:04 Dose: 40 mg Promethazine HCl/Dextromethorphan (Phenergan Dm Syrup) 5 ml PO Q6H PRN PRN Reason: Cough Last Admin: 02/12/17 05:06 Dose: 5 ml Repaglinide (Prandin) 1 mg PO TIDAC [facility] Last Admin: 02/12/17 08:36 Dose: 1 mg Rivaroxaban (Xarelto) 15 mg PO DAILY [facility] Last Admin: 02/12/17 10:06 Dose: 15 mg Rosuvastatin Calcium (Crestor) 10 mg PO HS [facility] Last Admin: 02/11/17 21:14 Dose: 10 mg Scopolamine (Transderm-Scop) 1 patch TD Q3D [facility] Last Admin: 02/09/17 17:25 Dose: 1 patch Tamsulosin HCl (Flomax) 0.4 mg PO DAILY [facility] Last Admin: 02/12/17 10:05 Dose: 0.4 mg Tiotropium [place] (Spiriva) 18 mcg INH RQ24 [facility] Last Admin: 02/12/17 08:34 Dose: 18 mcg - Labs Labs: 02/12/17 07:15 02/12/17 07:15 PT 11.8 SECONDS (9.7-12.2) 02/08/17 13:20 INR 1.1 02/08/17 13:20 APTT 24 SECONDS (21-34) D 02/08/17 13:20 - Head Exam Head Exam: ATRAUMATIC, NORMOCEPHALIC - Eye Exam Eye Exam: Normal appearance - ENT Exam ENT Exam: Mucous Membranes Moist - Neck Exam Neck Exam: Normal Inspection - Respiratory Exam Respiratory Exam: Clear to Ausculation Bilateral - Cardiovascular Exam Cardiovascular Exam: REGULAR RHYTHM - GI/Abdominal Exam GI & Abdominal Exam: Soft, Normal Bowel Sounds Assessment and Plan (1) COPD with exacerbation Assessment & Plan: continue nebulizer treatment and steroids followup ABG on room air Status: Acute (2) Atrial fibrillation with rapid ventricular response Status: Acute
[2017-02-12] MEDS: diltiaZEM 180 mg/24 Hours CD Cap PO SCH (12:27)
[2017-02-12 13:13] LABS: ABG ALLEN TEST PO; ARTERIAL BLOOD HGB O2 SAT 87.7 % (95.0-98.0); DRAW SITE LR; HHB 9.3 % (0.0-5.0)
[2017-02-12 17:02] VITALS: RESP 20
[2017-02-12] MEDS: Scopolamine 1.5 mg/24 hr Patch TD SCH (17:06)
--- NOTE | 2017-02-12 21:14 | CP.PCM.PN ---
Subjective - Date & Time of Evaluation Date of Evaluation: 02/12/17 Time of Evaluation: 11:05 - Subjective Subjective: No new cardiac events Patient comfortable Denies chest pain and dyspnea Physical Examination - Constitutional Appears: Non-toxic, No Acute Distress - Head Exam Head Exam: ATRAUMATIC, NORMAL INSPECTION - Eye Exam Eye Exam: EOMI - ENT Exam ENT Exam: Mucous Membranes Moist - Respiratory Exam Respiratory Exam: Clear to Ausculation Bilateral, NORMAL BREATHING PATTERN. absent: Accessory Muscle Use, Respiratory Distress - Cardiovascular Exam Cardiovascular Exam: REGULAR RHYTHM, +S1, +S2 - GI/Abdominal Exam GI & Abdominal Exam: Soft, Normal Bowel Sounds. absent: Distended, Firm, Guarding, Tenderness - Extremities Exam Extremities Exam: Normal Inspection. absent: Calf Tenderness - Back Exam Back Exam: NORMAL INSPECTION. absent: CVA tenderness (L), CVA tenderness (R), paraspinal tenderness - Neurological Exam Neurological Exam: Alert, Awake, Oriented x3 - Psychiatric Exam Psychiatric exam: Normal Affect, Normal Mood - Skin Skin Exam: Dry, Intact, Normal Color, Warm Objective - Vital Signs/Intake and Output Vital Signs (last 24 hours): Temp Pulse Resp BP Pulse Ox 98.2 F 71 20 107/60 95 02/12/17 16:00 02/12/17 16:00 02/12/17 16:00 02/12/17 17:07 02/12/17 16:00 - Medications Medications: Current Medications Acetylcysteine (Acetylcysteine 20%) 4 ml INH RQ6 [facility] Last Admin: 02/12/17 19:21 Dose: 4 ml Albuterol/Ipratropium (Duoneb 3 Mg/0.5 Mg (3 Ml) Ud) 3 ml INH RQ6 [facility] Last Admin: 02/12/17 19:21 Dose: 3 ml Alprazolam (Xanax) 0.5 mg PO TID PRN PRN Reason: Anxiety Last Admin: 02/09/17 10:01 Dose: 0.5 mg Amiodarone HCl (Cordarone) 200 mg PO DAILY [facility] Last Admin: 02/12/17 10:05 Dose: 200 mg Aspirin (Aspirin Chewable) 81 mg PO DAILY [facility] Last Admin: 02/12/17 10:05 Dose: 81 mg Budesonide (Pulmicort Respules) 0.25 mg INH RQ12 [facility] Last Admin: 02/12/17 19:21 Dose: 0.25 mg Carvedilol (Coreg) 12.5 mg PO BID [facility] Last Admin: 02/12/17 17:07 Dose: 12.5 mg Diltiazem HCl (Cardizem Cd) 360 mg PO DAILY [facility] Last Admin: 02/12/17 12:27 Dose: 360 mg Furosemide (Lasix) 40 mg IVP DAILY [facility] Last Admin: 02/12/17 10:07 Dose: 40 mg Azithromycin 500 mg/ Sodium (Chloride) 250 mls @ 250 mls/hr IVPB DAILY [facility] Last Admin: 02/12/17 10:02 Dose: 250 mls/hr Ceftriaxone Sodium 1 gm/ (Sodium Chloride) 100 mls @ 100 mls/hr IVPB Q12H [facility] Last Admin: 02/12/17 11:37 Dose: 100 mls/hr Insulin Human Regular (Novolin R) 0 unit SC ACHS [facility] PRN Reason: Protocol Last Admin: 02/12/17 17:08 Dose: Not Given Methylprednisolone (Solu-Medrol) 40 mg IVP Q8H [facility] Last Admin: 02/12/17 17:06 Dose: 40 mg Rbmqq-7-Rqfe Ethyl Esters (Lovaza) 1 gm PO DAILY [facility] Last Admin: 02/12/17 10:05 Dose: 1 gm Ondansetron HCl (Zofran Inj) 4 mg IVP Q6 PRN PRN Reason: Nausea/Vomiting Pantoprazole Sodium (Protonix Ec Tab) 40 mg PO DAILY [facility] Last Admin: 02/12/17 10:04 Dose: 40 mg Promethazine HCl/Dextromethorphan (Phenergan Dm Syrup) 5 ml PO Q6H PRN PRN Reason: Cough Last Admin: 02/12/17 05:06 Dose: 5 ml Repaglinide (Prandin) 1 mg PO TIDAC [facility] Last Admin: 02/12/17 17:05 Dose: 1 mg Rivaroxaban (Xarelto) 15 mg PO DAILY [facility] Last Admin: 02/12/17 10:06 Dose: 15 mg Rosuvastatin Calcium (Crestor) 10 mg PO HS [facility] Last Admin: 02/11/17 21:14 Dose: 10 mg Scopolamine (Transderm-Scop) 1 patch TD Q3D [facility] Last Admin: 02/12/17 17:06 Dose: 1 patch Tamsulosin HCl (Flomax) 0.4 mg PO DAILY [facility] Last Admin: 02/12/17 10:05 Dose: 0.4 mg Tiotropium [place] (Spiriva) 18 mcg INH RQ24 [facility] Last Admin: 02/12/17 08:34 Dose: 18 mcg - Labs Labs: 02/12/17 07:15 02/12/17 07:15 PT 11.8 SECONDS (9.7-12.2) 02/08/17 13:20 INR 1.1 02/08/17 13:20 APTT 24 SECONDS (21-34) D 02/08/17 13:20 Assessment and Plan - Assessment and Plan (Free Text) Assessment: 81 M with PMH of Dm, COPD, Hyperlipidemia, Abdominal Aortic Aneurysm with Stent , history of paroxysmal afib, presented with SOB and chest pain. Plan: Afib with RVR, wide complex tachycardia Resolved cardizem IV ASA 81mg po daily Xarelto 10mg po daily - on hold Patient to follow up with Dr Rice outpatient COPD exacerbation with underlying cor pulmonale D dimer 3507 BNP 2560 Troponin negative x 3 CXR: mild venous congestion; R hilar prominence and L central venous catheter; R paratracheal airspace opacity likely represents prominent vasculature. Small nodular denisty at the right lung base. repeat CXR 02/08 no active disease V/Q scan low probability for PE Morphine 1 mg IVP Q4H PRN Solumedrol 40mg IVP q8H Pulmicort 0.25mg INH Q12 Spiriva 18mcg INH Q24 Duoneb 3ml inh RQ6H Acetylcysteine 4ml inh q6 Scopolamine 2 ptach td q3day Phenergan DM 5ml po q6 prn cough blood culture prelim negative ECHO: LV mildly dilated. mild to mod concentric LVH. EF > 55%. L atrium mod dilated. RV systolic pressure estimated at 50-60mmHg. Severe pulmonary HTN. lipid panel WNL TSH/T4 WNL O2 via RI Cardio consult, Dr. Lafleur, help appreciated Pulm consult, Dr. Hou, help appreciated. Hx CAD RBBB ASA 81mg po daily Crestor 10mg po hs Lovaza 1gm po daily s/p Cath that showed non-obstructing CAD B/l common iliac A aneurysm CT Abd/pelvis w/o contrast: obstructive hydronephrosis on R secondary to markedly enlarged R common iliac A aneurysm measuring up to 8.2cm. Additionally 5cm L common iliac A anurysm. Relatively stable infrarenal abdominal aortic aneurysm R iliac limb, occuluded, chronic Anerysm of yurok common iliac artery b/l to follow up outpatient with Dr Augustine Abdominal Aortic aneurysm with stent [place] types 3 vs 4 AAA s/p bypass graft with 2 iliac limbs, now 4.4cm on CTA to follow up outpatient with Dr Augustine CKD III Nephro consult, Dr. Duran on board Urology Dr. Fernando on board Renal US: severe unilateral R sided hydronephrosis. large R lower quadrant and pelvic mass likely related to findings. Monitor BUN/Cr HTN Amiodarone 200mg PO daily Cardizem 360mg PO daily Diabetes mellitus ISS Prandin 1mg po TIDAC Accuchecks ACHS Prophylactic measure SCDs Protonix 40 mg PO daily Morphine 1mg IVP Q4 prn pain severe Zofran 4mg IVP Q6 PRN nausea/vomiting Xanax 0.5mg po tid prn Heart healthy diet Heparin 5000U SC Q12 Xarelto 10mg po daily- on hold
--- NOTE | 2017-02-12 22:09 | CP.PCM.PN ---
Subjective - Date & Time of Evaluation Date of Evaluation: 02/12/17 Time of Evaluation: 20:00 - Subjective Subjective: Patient reports feeling well, shortness of breath improved; Objective - Vital Signs/Intake and Output Vital Signs (last 24 hours): Temp Pulse Resp BP Pulse Ox 98.2 F 71 20 107/60 95 02/12/17 16:00 02/12/17 16:00 02/12/17 16:00 02/12/17 17:07 02/12/17 16:00 - Medications Medications: Current Medications Acetylcysteine (Acetylcysteine 20%) 4 ml INH RQ6 [facility] Last Admin: 02/12/17 19:21 Dose: 4 ml Albuterol/Ipratropium (Duoneb 3 Mg/0.5 Mg (3 Ml) Ud) 3 ml INH RQ6 [facility] Last Admin: 02/12/17 19:21 Dose: 3 ml Alprazolam (Xanax) 0.5 mg PO TID PRN PRN Reason: Anxiety Last Admin: 02/09/17 10:01 Dose: 0.5 mg Amiodarone HCl (Cordarone) 200 mg PO DAILY [facility] Last Admin: 02/12/17 10:05 Dose: 200 mg Aspirin (Aspirin Chewable) 81 mg PO DAILY [facility] Last Admin: 02/12/17 10:05 Dose: 81 mg Budesonide (Pulmicort Respules) 0.25 mg INH RQ12 [facility] Last Admin: 02/12/17 19:21 Dose: 0.25 mg Carvedilol (Coreg) 12.5 mg PO BID [facility] Last Admin: 02/12/17 17:07 Dose: 12.5 mg Diltiazem HCl (Cardizem Cd) 360 mg PO DAILY [facility] Last Admin: 02/12/17 12:27 Dose: 360 mg Furosemide (Lasix) 40 mg IVP DAILY [facility] Last Admin: 02/12/17 10:07 Dose: 40 mg Azithromycin 500 mg/ Sodium (Chloride) 250 mls @ 250 mls/hr IVPB DAILY [facility] Last Admin: 02/12/17 10:02 Dose: 250 mls/hr Ceftriaxone Sodium 1 gm/ (Sodium Chloride) 100 mls @ 100 mls/hr IVPB Q12H [facility] Last Admin: 02/12/17 11:37 Dose: 100 mls/hr Insulin Human Regular (Novolin R) 0 unit SC ACHS [facility] PRN Reason: Protocol Last Admin: 02/12/17 22:06 Dose: Not Given Methylprednisolone (Solu-Medrol) 40 mg IVP Q8H [facility] Last Admin: 02/12/17 17:06 Dose: 40 mg [id number]-6-[id number] Ethyl Esters (Lovaza) 1 gm PO DAILY [facility] Last Admin: 02/12/17 10:05 Dose: 1 gm Ondansetron HCl (Zofran Inj) 4 mg IVP Q6 PRN PRN Reason: Nausea/Vomiting Pantoprazole Sodium (Protonix Ec Tab) 40 mg PO DAILY [facility] Last Admin: 02/12/17 10:04 Dose: 40 mg Promethazine HCl/Dextromethorphan (Phenergan Dm Syrup) 5 ml PO Q6H PRN PRN Reason: Cough Last Admin: 02/12/17 05:06 Dose: 5 ml Repaglinide (Prandin) 1 mg PO TIDAC [facility] Last Admin: 02/12/17 17:05 Dose: 1 mg Rivaroxaban (Xarelto) 15 mg PO DAILY [facility] Last Admin: 02/12/17 10:06 Dose: 15 mg Rosuvastatin Calcium (Crestor) 10 mg PO HS [facility] Last Admin: 02/12/17 22:05 Dose: 10 mg Scopolamine (Transderm-Scop) 1 patch TD Q3D [facility] Last Admin: 02/12/17 17:06 Dose: 1 patch Tamsulosin HCl (Flomax) 0.4 mg PO DAILY [facility] Last Admin: 02/12/17 10:05 Dose: 0.4 mg Tiotropium [place] (Spiriva) 18 mcg INH RQ24 [facility] Last Admin: 02/12/17 08:34 Dose: 18 mcg - Labs Labs: 02/12/17 07:15 02/12/17 07:15 PT 11.8 SECONDS (9.7-12.2) 02/08/17 13:20 INR 1.1 02/08/17 13:20 APTT 24 SECONDS (21-34) D 02/08/17 13:20 - Constitutional Appears: Well, No Acute Distress - Head Exam Head Exam: NORMOCEPHALIC - Eye Exam Eye Exam: Normal appearance. absent: Scleral icterus - Respiratory Exam Respiratory Exam: Prolonged Expiratory Phase - Cardiovascular Exam Cardiovascular Exam: RRR, +S1, +S2 - GI/Abdominal Exam GI & Abdominal Exam: Soft. absent: Distended, Tenderness - Exam Exam: absent: Bladder Distension - Extremities Exam Additional comments: L leg edema; - Neurological Exam Neurological Exam: Alert, Awake - Psychiatric Exam Psychiatric exam: Normal Affect, Normal Mood - Skin Skin Exam: Normal Color, Warm. absent: Cyanosis Assessment and Plan (1) Acute renal failure Assessment & Plan: ALEJANDRO on CKD, pre-renal etiology; serum creatinine again increasing in the setting of low/normal BP and diuresis; another rate control med added, can expect creatinine to remain elevated; stable lytes and relatively euvolemic on exam; continue to monitor; may have to tolerate creatinine close to 2.0; Status: Acute (2) Renal insufficiency Assessment & Plan: CKD IIIA secondary to atrophic kidney and cardiorenal/renovascular etiology; susceptible to hemodynamic changes; need to avoid further lowering BP; Status: Acute (3) Pulmonary hypertension Assessment & Plan: Per echo finding; likely due to COPD; on lasix 40 mg IV daily; continue for now but may have to decrease if creatinine rises further; Status: Acute (4) Hypertension Assessment & Plan: On afib rate control med cardizem and now coreg; low/normal BP; EP crystallographer considered ablation but patient had some bleeding with anticoagulation; continue per cardio recs; Status: Chronic (5) CAD (coronary artery disease) Assessment & Plan: Non-obstructive disease, continue statin; Status: Acute (6) Iliac aneurysm Assessment & Plan: Outpatient f/u per surgery; Status: Acute
[2017-02-13] MEDS: MethylPREDNISolone 40 mg Vial IVP SCH ×3 (01:28→17:56)
[2017-02-13] MEDS: Albuterol-Ipratrop 3 mg / 0.5 (3 ml) UD INH SCH ×4 (01:36→19:00)
[2017-02-13] MEDS: Acetylcysteine 20% Inhal Soln (4ml) INH SCH ×4 (01:36→18:59)
[2017-02-13 05:00] VITALS: TEMP 97.4
[2017-02-13 06:35] LABS: BASO % 0.1 % (0.0-2.0); HEMATOCRIT 26.3 % (35.0-51.0); LYMPH # 0.1 K/uL (1.0-4.3); LYMPH % 0.6 % (20.0-40.0); MEAN CELL VOLUME 89.9 fL (80.0-94.0); MEAN CORPUSCULAR HEMOGLOBIN 29.2 pg (27.0-31.0); MEAN CORPUSCULAR HGB CONC 32.5 g/dL (33.0-37.0); MEAN PLATELET VOLUME 8.4 fL (7.2-11.7); MONO # 0.3 K/uL (0.0-0.8); MONO % 3.1 % (0.0-10.0); PLATELET COUNT 134 K/uL (130-400); RED CELL DISTRIBUTION WIDTH 16.8 % (11.5-14.5); WHITE BLOOD COUNT 10.9 K/uL (4.8-10.8)
[2017-02-13 06:40] LABS: POTASSIUM 4.2 mmol/L (3.6-5.2)
[2017-02-13 06:42] LABS: BILIRUBIN,TOTAL 0.6 mg/dL (0.2-1.3)
[2017-02-13 06:43] LABS: ALB/GLOB RATIO 1.3 (1.0-2.1); PHOSPHOROUS 4.3 mg/dL (2.5-4.5); TOTAL PROTEIN 4.4 g/dL (6.3-8.3)
[2017-02-13 06:44] LABS: MAGNESIUM 1.6 mg/dL (1.6-2.3)
[2017-02-13] MEDS: Budesonide 0.25 mg/2 ml Inhal Susp UD INH SCH ×2 (07:41→19:00)
[2017-02-13] MEDS: Tiotropium 18 mcg Cap For Inhalation INH SCH (07:41)
[2017-02-13 08:05] LABS: NEUTROPHIL 96 % (50-75); TOTAL CELLS COUNTED 100
[2017-02-13] MEDS: (Novolin R) Insulin Human Regular 100 units/ml vial SC SCH ×3 (08:37→17:57)
[2017-02-13] MEDS: Azithromycin 500 MG in Sodium Chloride 0.9% 250 ML IVPB SCH (09:46)
[2017-02-13] MEDS: Pantoprazole 40 mg EC Tab PO SCH (10:06)
[2017-02-13] MEDS: Omega-3-Acid Ethyl Esters 1 GM Cap PO SCH (10:07)
--- NOTE | 2017-02-13 10:11 | CP.PCM.PN ---
<Manjit Chou - Last Filed: 02/13/17 16:23> Subjective - Date & Time of Evaluation Date of Evaluation: 02/13/17 Time of Evaluation: 10:08 - Subjective Subjective: Progress Note for Dr. Rcie Pt seen and examined at bedside. No acute events overnight as per nursing. Pt doing well at this time with no new complaints. Heart rate overnight was controlled within the 70-80's. Pt mentions improvement in cough and SOB. Pt denies CP, N/V/D, fevers, chills. Objective - Vital Signs/Intake and Output Vital Signs (last 24 hours): Temp Pulse Resp BP Pulse Ox 97.4 F L 84 20 111/67 95 02/13/17 04:30 02/13/17 04:30 02/13/17 04:30 02/13/17 10:05 02/13/17 04:30 Intake and Output: 02/13/17 02/13/17 06:59 18:59 Output Total 300 Balance -300 - Medications Medications: Current Medications Acetylcysteine (Acetylcysteine 20%) 4 ml INH RQ6 [facility] Last Admin: 02/13/17 07:41 Dose: 4 ml Albuterol/Ipratropium (Duoneb 3 Mg/0.5 Mg (3 Ml) Ud) 3 ml INH RQ6 [facility] Last Admin: 02/13/17 07:42 Dose: 3 ml Alprazolam (Xanax) 0.5 mg PO TID PRN PRN Reason: Anxiety Last Admin: 02/09/17 10:01 Dose: 0.5 mg Amiodarone HCl (Cordarone) 200 mg PO DAILY [facility] Last Admin: 02/13/17 10:06 Dose: 200 mg Aspirin (Aspirin Chewable) 81 mg PO DAILY [facility] Last Admin: 02/13/17 10:06 Dose: 81 mg Budesonide (Pulmicort Respules) 0.25 mg INH RQ12 [facility] Last Admin: 02/13/17 07:41 Dose: 0.25 mg Carvedilol (Coreg) 12.5 mg PO BID [facility] Last Admin: 02/12/17 17:07 Dose: 12.5 mg Diltiazem HCl (Cardizem Cd) 360 mg PO DAILY [facility] Last Admin: 02/12/17 12:27 Dose: 360 mg Furosemide (Lasix) 40 mg IVP DAILY [facility] Last Admin: 02/13/17 10:05 Dose: 40 mg Azithromycin 500 mg/ Sodium (Chloride) 250 mls @ 250 mls/hr IVPB DAILY [facility] Last Admin: 02/13/17 09:46 Dose: 250 mls/hr Ceftriaxone Sodium 1 gm/ (Sodium Chloride) 100 mls @ 100 mls/hr IVPB Q12H [facility] Last Admin: 02/12/17 23:13 Dose: 100 mls/hr Insulin Human Regular (Novolin R) 0 unit SC ACHS [facility] PRN Reason: Protocol Last Admin: 02/13/17 08:37 Dose: 6 unit Methylprednisolone (Solu-Medrol) 40 mg IVP Q8H [facility] Last Admin: 02/13/17 10:05 Dose: 40 mg [id number]-5-[id number] Ethyl Esters (Lovaza) 1 gm PO DAILY [facility] Last Admin: 02/13/17 10:07 Dose: 1 gm Ondansetron HCl (Zofran Inj) 4 mg IVP Q6 PRN PRN Reason: Nausea/Vomiting Pantoprazole Sodium (Protonix Ec Tab) 40 mg PO DAILY [facility] Last Admin: 02/13/17 10:06 Dose: 40 mg Promethazine HCl/Dextromethorphan (Phenergan Dm Syrup) 5 ml PO Q6H PRN PRN Reason: Cough Last Admin: 02/12/17 05:06 Dose: 5 ml Repaglinide (Prandin) 1 mg PO TIDAC [facility] Last Admin: 02/13/17 07:48 Dose: 1 mg Rivaroxaban (Xarelto) 15 mg PO DAILY [facility] Last Admin: 02/13/17 10:06 Dose: 15 mg Rosuvastatin Calcium (Crestor) 10 mg PO HS [facility] Last Admin: 02/12/17 22:05 Dose: 10 mg Scopolamine (Transderm-Scop) 1 patch TD Q3D [facility] Last Admin: 02/12/17 17:06 Dose: 1 patch Tamsulosin HCl (Flomax) 0.4 mg PO DAILY [facility] Last Admin: 02/13/17 10:06 Dose: 0.4 mg Tiotropium [place] (Spiriva) 18 mcg INH RQ24 [facility] Last Admin: 02/13/17 07:41 Dose: 18 mcg - Labs Labs: 02/13/17 06:18 02/13/17 06:18 PT 11.8 SECONDS (9.7-12.2) 02/08/17 13:20 INR 1.1 02/08/17 13:20 APTT 24 SECONDS (21-34) D 02/08/17 13:20 - Constitutional Appears: Non-toxic, No Acute Distress - Head Exam Head Exam: ATRAUMATIC, NORMAL INSPECTION, NORMOCEPHALIC - Respiratory Exam Respiratory Exam: Rhonchi (B/l throughout lung currie), NORMAL BREATHING PATTERN. absent: Wheezes - Cardiovascular Exam Cardiovascular Exam: RRR, +S1, +S2 - GI/Abdominal Exam GI & Abdominal Exam: Soft, Normal Bowel Sounds. absent: Tenderness - Extremities Exam Extremities Exam: Normal Inspection. absent: Pedal Edema - Neurological Exam Neurological Exam: Alert, Awake, Oriented x3 - Skin Skin Exam: Intact, Normal Color, Warm Assessment and Plan (1) Atrial fibrillation with rapid ventricular response Assessment & Plan: Rate controlled at this time Continue oral cardizem and coreg Status: Acute (2) AAA (abdominal aortic aneurysm) Assessment & Plan: Hx of AAA Currently stable Monitor for acute hemodynamic instability. Status: Chronic <Dyana Rice A - Last Filed: 02/15/17 09:17> Objective - Vital Signs/Intake and Output Vital Signs (last 24 hours): Temp Pulse Resp BP Pulse Ox 97.4 F L 62 20 103/60 90 L 02/13/17 16:00 02/13/17 16:11 02/13/17 16:00 02/13/17 17:56 02/13/17 16:11 - Labs Labs: 02/13/17 06:18 02/13/17 06:18 PT 11.8 SECONDS (9.7-12.2) 02/08/17 13:20 INR 1.1 02/08/17 13:20 APTT 24 SECONDS (21-34) D 02/08/17 13:20 Attending/Attestation - Attestation I have personally seen and examined this patient.: Yes I have fully participated in the care of the patient.: Yes I have reviewed all pertinent clinical information, including history, physical exam and plan: Yes Notes (Text): 02/15/17 09:16 Continue rate control and f/u in office
[2017-02-13] MEDS: diltiaZEM 180 mg/24 Hours CD Cap PO SCH (10:36)
--- NOTE | 2017-02-13 12:42 | CP.PCM.PN ---
Subjective - Date & Time of Evaluation Date of Evaluation: 02/13/17 Time of Evaluation: 12:39 - Subjective Subjective: PGY-[address] Lomax's service Pt seen and examined at bedside. No acute events overnight as per nursing. Pt denying any acute complaints other than constipation for last day- no chest pain , palpitations, SOB, fever, chills. Heart rate well-controlled since addition of BB; overnight controlled within the 70-80's. Pt encouraged to actively participate in PT, and walk when he can. Objective - Vital Signs/Intake and Output Vital Signs (last 24 hours): Temp Pulse Resp BP Pulse Ox 97.4 F L 65 20 111/67 95 02/13/17 04:30 02/13/17 08:00 02/13/17 04:30 02/13/17 10:37 02/13/17 04:30 Intake and Output: 02/13/17 02/13/17 06:59 18:59 Output Total 300 Balance -300 - Medications Medications: Current Medications Acetylcysteine (Acetylcysteine 20%) 4 ml INH RQ6 [facility] Last Admin: 02/13/17 07:41 Dose: 4 ml Albuterol/Ipratropium (Duoneb 3 Mg/0.5 Mg (3 Ml) Ud) 3 ml INH RQ6 [facility] Last Admin: 02/13/17 07:42 Dose: 3 ml Alprazolam (Xanax) 0.5 mg PO TID PRN PRN Reason: Anxiety Last Admin: 02/09/17 10:01 Dose: 0.5 mg Amiodarone HCl (Cordarone) 200 mg PO DAILY [facility] Last Admin: 02/13/17 10:06 Dose: 200 mg Aspirin (Aspirin Chewable) 81 mg PO DAILY [facility] Last Admin: 02/13/17 10:06 Dose: 81 mg Budesonide (Pulmicort Respules) 0.25 mg INH RQ12 [facility] Last Admin: 02/13/17 07:41 Dose: 0.25 mg Carvedilol (Coreg) 12.5 mg PO BID [facility] Last Admin: 02/13/17 10:37 Dose: Not Given Diltiazem HCl (Cardizem Cd) 360 mg PO DAILY [facility] Last Admin: 02/13/17 10:36 Dose: Not Given Docusate Sodium (Colace) 100 mg PO BID [facility] Last Admin: 02/13/17 10:36 Dose: 100 mg Furosemide (Lasix) 40 mg IVP DAILY [facility] Last Admin: 02/13/17 10:05 Dose: 40 mg Azithromycin 500 mg/ Sodium (Chloride) 250 mls @ 250 mls/hr IVPB DAILY [facility] Last Admin: 02/13/17 09:46 Dose: 250 mls/hr Ceftriaxone Sodium 1 gm/ (Sodium Chloride) 100 mls @ 100 mls/hr IVPB Q12H [facility] Last Admin: 02/13/17 11:41 Dose: 100 mls/hr Insulin Human Regular (Novolin R) 0 unit SC ACHS [facility] PRN Reason: Protocol Last Admin: 02/13/17 12:32 Dose: 10 unit Methylprednisolone (Solu-Medrol) 40 mg IVP Q8H [facility] Last Admin: 02/13/17 10:05 Dose: 40 mg [id number] Ethyl Esters (Lovaza) 1 gm PO DAILY [facility] Last Admin: 02/13/17 10:07 Dose: 1 gm Ondansetron HCl (Zofran Inj) 4 mg IVP Q6 PRN PRN Reason: Nausea/Vomiting Pantoprazole Sodium (Protonix Ec Tab) 40 mg PO DAILY [facility] Last Admin: 02/13/17 10:06 Dose: 40 mg Promethazine HCl/Dextromethorphan (Phenergan Dm Syrup) 5 ml PO Q6H PRN PRN Reason: Cough Last Admin: 02/12/17 05:06 Dose: 5 ml Repaglinide (Prandin) 1 mg PO TIDAC [facility] Last Admin: 02/13/17 11:42 Dose: 1 mg Rivaroxaban (Xarelto) 15 mg PO DAILY [facility] Last Admin: 02/13/17 10:06 Dose: 15 mg Rosuvastatin Calcium (Crestor) 10 mg PO HS [facility] Last Admin: 02/12/17 22:05 Dose: 10 mg Scopolamine (Transderm-Scop) 1 patch TD Q3D [facility] Last Admin: 02/12/17 17:06 Dose: 1 patch Tamsulosin HCl (Flomax) 0.4 mg PO DAILY [facility] Last Admin: 02/13/17 10:06 Dose: 0.4 mg Tiotropium [place] (Spiriva) 18 mcg INH RQ24 [facility] Last Admin: 02/13/17 07:41 Dose: 18 mcg - Labs Labs: 02/13/17 06:18 02/13/17 06:18 PT 11.8 SECONDS (9.7-12.2) 02/08/17 13:20 INR 1.1 02/08/17 13:20 APTT 24 SECONDS (21-34) D 02/08/17 13:20 - Additional Findings Additional findings: - Constitutional Appears: Non-toxic, No Acute Distress - Head Exam Head Exam: ATRAUMATIC, NORMAL INSPECTION, NORMOCEPHALIC - Eye Exam Eye Exam: EOMI Pupil Exam: PERRL - ENT Exam ENT Exam: Mucous Membranes Moist - Respiratory Exam Respiratory Exam: Rhonchi, Wheezes. absent: Accessory Muscle Use, Clear to Ausculation Bilateral - Cardiovascular Exam Cardiovascular Exam: REGULAR RHYTHM, +S1, +S2 - GI/Abdominal Exam GI & Abdominal Exam: Soft, Normal Bowel Sounds. absent: Tenderness - Extremities Exam Extremities Exam: Calf Tenderness, Normal Inspection, Pedal Edema (1+) - Back Exam Back Exam: absent: CVA tenderness (L), CVA tenderness (R) - Neurological Exam Neurological Exam: Alert, Awake, Oriented x3 - Psychiatric Exam Psychiatric exam: Normal Affect - Skin Skin Exam: Normal Color, Warm Assessment and Plan - Assessment and Plan (Free Text) Plan: Afib with RVR, wide complex tachycardia Paroxysmal Afib Start Coreg 12.5 mg PO BID Cardizem 360mg po daily Amiodarone 200mg po daily ASA 81mg po daily Xarelto 15mg po daily Patient to follow up with Dr Rice outpatient COPD exacerbation with underlying cor pulmonale D dimer 3507 - V/Q scan low probability for PE BNP 2560 Troponin negative x 3 CXR (02/11/17): Patchy opacity in left lower lung field which may represent some combination of atelectasis/infiltrate and small effusion. Afebrile, WBC count decreasing (16.6 yesterday to 10.9 today) - CXR improved since admission blood culture prelim negative ECHO (01/30/17): LV mildly dilated. mild to mod concentric LVH. EF > 55%. L atrium mod dilated. RV systolic pressure estimated at 50-60mmHg. Severe pulmonary HTN. lipid panel WNL TSH/T4 WNL Morphine 1 mg IVP Q4H PRN Solumedrol 40mg IVP q8H Pulmicort 0.25mg INH Q12 Spiriva 18mcg INH Q24 Duoneb 3ml inh RQ6H Acetylcysteine 4ml inh q6 Scopolamine 2 ptach td q3day Phenergan DM 5ml po q6 prn cough O2 via [place] Cardio consult, Dr. Lafleur, help appreciated Pulm consult, Dr. Hou, help appreciated. PNA vs Atelectasis CXR (02/11/17): Patchy opacity in left lower lung field which may represent some combination of atelectasis/infiltrate and small effusion. Afebrile, WBC count decreasing (16.6 yesterday to 10.9 today) Azithromycin 500mg IV daily Ceftriaxone 1gm Q12H Leukocytosis WBC 10.9 on AM labs, decreased from 16.6 yesterday CXR (02/11/17): Patchy opacity in left lower lung field which may represent some combination of atelectasis/infiltrate and small effusion. Blood Cx (02/11/17): Gram positive cocci. - per DR. Lmoax, believed to be contaminated sample, will wait for constitutional symptoms before redrawing Hx CAD RBBB ASA 81mg po daily Crestor 10mg po hs Lovaza 1gm po daily s/p Cath that showed non-obstructing CAD B/l common iliac A aneurysm CT Abd/pelvis w/o contrast: obstructive hydronephrosis on R secondary to markedly enlarged R common iliac A aneurysm measuring up to 8.2cm. Additionally 5cm L common iliac A anurysm. 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 Duran on board Urology Dr. Fernando on board Renal US: severe unilateral R sided hydronephrosis. large R lower quadrant and pelvic mass likely related to findings. Monitor BUN/Cr HTN Well-controlled Amiodarone 200mg PO daily Cardizem 360mg PO daily Diabetes mellitus ISS Prandin 1mg po TIDAC Accuchecks ACHS Prophylactic measure SCDs Protonix 40 mg PO daily Morphine 1mg IVP Q4 prn pain severe Zofran 4mg IVP Q6 PRN nausea/vomiting Xanax 0.5mg po tid prn Heart healthy diet Heparin 5000U SC Q12 Xarelto 15mg po daily Disposition Waiting authorization for [facility] placement Managment per Dr. Monie Briones, PGY-1
[2017-02-13 16:25] VITALS: O2SAT 90
[2017-02-13 16:28] VITALS: PULSE 62
--- NOTE | 2017-02-13 17:19 | CP.PCM.DIS ---
Provider - Provider Date of Admission: 01/31/17 13:44 Attending physician: Fracisco Lomax Jr, MD Primary care physician: Dr. Lomax Consults: CArdiology: Krystal Richardson Critical Care: Dr. Chavez Nephrology: DR. Duran Pulmonology: Dr. Hou Urology: Dr. Fernando Surgery: [place] Time Spent in preparation of Discharge (in minutes): 45 Hospital Course - Lab Results Lab Results: Micro Results 02/11/17 11:20 Blood S.aureus & Coag-Neg Staph PNA FISH - Final 02/11/17 11:20 Blood Blood Culture - Preliminary Coagulase Neg Staphylococcus 02/11/17 11:20 Blood Gram Stain - Final 02/11/17 19:00 Urine Urine Culture - Final No Growth (<1,000 CFU/ML) 02/06/17 16:27 Nose MRSA Culture - Final MRSA NOT DETECTED 02/01/17 Unknown Nose MRSA Culture (Admit) - Final MRSA NOT DETECTED Most Recent Lab Values WBC 10.9 K/uL (4.8-10.8) H 02/13/17 06:18 RBC 2.93 Mil/uL (4.40-5.90) L 02/13/17 06:18 Hgb 8.5 g/dL (12.0-18.0) L 02/13/17 06:18 Hct 26.3 % (35.0-51.0) L 02/13/17 06:18 MCV 89.9 fL (80.0-94.0) 02/13/17 06:18 MCH 29.2 pg (27.0-31.0) 02/13/17 06:18 MCHC 32.5 g/dL (33.0-37.0) L 02/13/17 06:18 RDW 16.8 % (11.5-14.5) H 02/13/17 06:18 Plt Count 134 K/uL (130-400) 02/13/17 06:18 MPV 8.4 fL (7.2-11.7) 02/13/17 06:18 Neut % (Auto) 96.2 % (50.0-75.0) H 02/13/17 06:18 Lymph % (Auto) 0.6 % (20.0-40.0) L 02/13/17 06:18 [place] % (Auto) 3.1 % (0.0-10.0) 02/13/17 06:18 Eos % (Auto) 0.0 % (0.0-4.0) 02/13/17 06:18 Baso % (Auto) 0.1 % (0.0-2.0) 02/13/17 06:18 Neut # 10.5 K/uL (1.8-7.0) H 02/13/17 06:18 Lymph # 0.1 K/uL (1.0-4.3) L 02/13/17 06:18 [place] # 0.3 K/uL (0.0-0.8) 02/13/17 06:18 Eos # 0.0 K/uL (0.0-0.7) 02/13/17 06:18 Baso # 0.0 K/uL (0.0-0.2) 02/13/17 06:18 Neutrophils % (Manual) 96 % (50-75) H 02/13/17 06:18 Band Neutrophils % 1 % (0-2) 02/13/17 06:18 Lymphocytes % (Manual) TEST NOT PERFORMED 02/13/17 06:18 Reactive Lymphs % 1 % (0-0) H 02/02/17 06:22 Monocytes % (Manual) 3 % (0-10) 02/13/17 06:18 Eosinophils % (Manual) 2 % (0-4) 01/29/17 23:07 Basophils % (Manual) 2 % (0-2) 01/29/17 23:07 Metamyelocytes % 1 % (0-0) H 02/06/17 06:35 Myelocytes % 1 % (0-0) H 02/06/17 06:35 Nucleated RBC % 1 % (0-0) H 02/12/17 07:15 Toxic Granulation Present 02/04/17 06:21 Platelet Estimate Normal (NORMAL) 02/13/17 06:18 Large Platelets Present 02/11/17 07:26 Polychromasia Slight 02/11/17 12:24 Hypochromasia (manual) Slight 02/13/17 06:18 Poikilocytosis (manual Slight 02/13/17 06:18 Basophilic Stippling Slight 02/12/17 07:15 Anisocytosis (manual) Slight 02/13/17 06:18 Tear Drop Cells Slight 02/12/17 07:15 Ovalocytes Slight 02/13/17 06:18 [place] Cells Slight 02/12/17 07:15 Schistocytes Slight 02/11/17 07:26 PT 11.8 SECONDS (9.7-12.2) 02/08/17 13:20 INR 1.1 02/08/17 13:20 APTT 24 SECONDS (21-34) D 02/08/17 13:20 D-Dimer, Quantitative 3507 ng/mlDDU (0-243) H 01/29/17 23:07 Puncture Site Lr 02/12/17 13:10 pCO2 41 mm/Hg (35-45) 02/12/17 13:10 pO2 52 mm/Hg (80-100) L 02/12/17 13:10 HCO3 27.4 mmol/L (21-28) 02/12/17 13:10 ABG pH 7.44 (7.35-7.45) 02/12/17 13:10 ABG Total CO2 29.1 mmol/L (22-28) H 02/12/17 13:10 ABG O2 Saturation 90.4 % (95-98) L 02/12/17 13:10 ABG Base Excess 3.3 mmol/L (-2.0-3.0) H 02/12/17 13:10 ABG Hemoglobin 8.4 g/dL (11.7-17.4) L 02/12/17 13:10 ABG Carboxyhemoglobin 2.0 % (0.5-1.5) H 02/12/17 13:10 POC ABG HHb (Measured) 9.3 % (0.0-5.0) H 02/12/17 13:10 ABG Methemoglobin 1.0 % (0.0-3.0) 02/12/17 13:10 Hoang Test Po 02/12/17 13:10 A-a O2 Difference 46.0 mm/Hg 02/12/17 13:10 Respiratory Index 0.9 02/12/17 13:10 Hgb O2 Saturation 87.7 % (95.0-98.0) L 02/12/17 13:10 FiO2 21.0 % 02/12/17 13:10 Sodium 131 mmol/L (132-148) L 02/13/17 06:18 Potassium 4.2 mmol/L (3.6-5.2) 02/13/17 06:18 Chloride 94 mmol/L (98-107) L 02/13/17 06:18 Carbon Dioxide 31 mmol/L (22-30) H 02/13/17 06:18 Anion Gap 10 (10-20) 02/13/17 06:18 BUN 58 mg/dL (9-20) H 02/13/17 06:18 Creatinine 1.8 MG/DL (0.8-1.5) H 02/13/17 06:18 Est GFR ( Amer) 44 02/13/17 06:18 Est GFR (Non-Af Amer) 36 02/13/17 06:18 POC Glucose (mg/dL) 333 mg/dL (65-110) H 02/13/17 16:40 Random Glucose 230 mg/dL (75-110) H 02/13/17 06:18 Hemoglobin A1c 6.1 % (4.2-6.5) 01/30/17 06:49 Calcium 7.0 mg/dl (8.6-10.4) L 02/13/17 06:18 Phosphorus 4.3 mg/dL (2.5-4.5) 02/13/17 06:18 Magnesium 1.6 mg/dL (1.6-2.3) 02/13/17 06:18 Iron 74 ug/dL (49-181) 02/08/17 07:06 TIBC 216 ug/dL (250-450) L 02/08/17 07:06 % Saturation 34 (20-55) 02/08/17 07:06 Ferritin 227.0 ng/mL 02/08/17 07:06 Total Bilirubin 0.6 mg/dL (0.2-1.3) 02/13/17 06:18 AST 19 U/L (17-59) 02/13/17 06:18 ALT 68 U/L (21-72) 02/13/17 06:18 Alkaline Phosphatase 60 U/L (38-126) 02/13/17 06:18 Total Creatine Kinase 59 U/L (55-170) 02/11/17 12:24 CK-MB (Mass) 2.13 ng/mL (0.0-3.38) 02/11/17 12:24 Troponin I, Quant 0.0260 ng/mL (0.00-0.120) 02/11/17 12:24 NT-Pro-B Natriuret Pep 2560 pg/mL (0-900) H 02/12/17 07:15 Total Protein 4.4 g/dL (6.3-8.3) L 02/13/17 06:18 Albumin 2.4 g/dL (3.5-5.0) L 02/13/17 06:18 Globulin 1.9 gm/dL (2.2-3.9) L 02/13/17 06:18 Albumin/Globulin Ratio 1.3 (1.0-2.1) 02/13/17 06:18 Triglycerides 70 mg/dL (0-149) 01/30/17 03:44 Cholesterol 147 mg/dL (0-199) 01/30/17 03:44 LDL Cholesterol Direct 54 mg/dL (0-129) 01/30/17 03:44 HDL Cholesterol 50 mg/dL (30-70) 01/30/17 03:44 Thyroxine (T4) 7.24 ug/dL (5.5-11.0) 01/30/17 03:44 TSH 3rd Generation 0.82 mIU/L (0.46-4.68) 01/30/17 03:44 Urine Color Yellow (YELLOW) 02/11/17 17:26 Urine Clarity Clear (Clear) 02/11/17 17:26 Urine pH 5.0 (5.0-8.0) 02/11/17 17:26 Ur Specific [place] 1.008 (1.003-1.030) 02/11/17 17:26 Urine Protein Negative mg/dL (NEGATIVE) 02/11/17 17:26 Urine Glucose (UA) 1+ mg/dL (Normal) H 02/11/17 17:26 Urine Ketones Negative mg/dL (NEGATIVE) 02/11/17 17:26 Urine Blood 2+ (NEGATIVE) H 02/11/17 17:26 Urine Nitrate Negative (NEGATIVE) 02/11/17 17:26 Urine Bilirubin Negative (NEGATIVE) 02/11/17 17:26 Urine Urobilinogen 2.0 mg/dL (0.2-1.0) 02/11/17 17:26 Ur Leukocyte Esterase Trace [place]/uL (Negative) 02/11/17 17:26 Urine WBC (Auto) 3 /hpf (0-5) 02/11/17 17:26 Urine RBC (Auto) 11 /hpf (0-3) H 02/11/17 17:26 Ur Squamous Epith Cells < 1 /hpf (0-5) 01/30/17 13:41 Urine Bacteria Occ (<OCC) H 02/11/17 17:26 Ur Random Creatinine 78.5 mg/dL 02/04/17 17:35 U Random Total Protein 38.0 mg/dL (0.0-12.0) H 01/30/17 13:41 Ur Random Sodium 9 mmol/L 02/04/17 17:35 Ur Random Urea Nitrogn Cancelled 02/04/17 17:35 - Hospital Course Hospital Course: On admission: 81 M with PMH of Dm, COPD, Hyperlipidemia, Abdominal Aortic Aneurysm with Stent , history of paroxysmal afib, presents to [facility] ED for complaint of SOB and chest pain. Patient is unable to speak properly due to losing his voice. Becasue of this, History was limited. Patient states that these symptoms have been present for about 3 days. They had gotten worse earlier today and he felt like he needed to be seen. He has experienced these symptoms in the past. He rated chest pain as 7/10 in severity. He describes it as a constant heaviness located in chest bilaterally. Patient denies any exacerbating or alleviating factors for the pain but exertion makes his breathing worse. His last ECHO was in 09/2015 which showed normal EF at that time. Admits to chills, fatigue, palpitations, nausea. Denies fever, dizziness/lightheadedness, syncope , vertigo, headache, abd pain, vomiting, diarrhea, constipation, weakness, numbness/tingling, incontinence. Hospital course: Pt admitted on 01/30/17 for SOB and chest pain. D-dimer and BNP elevated in ED labwork. VQ scan was low probability for PE. CXR showing mild venous congestion , and small nodular density at right lung base. Pt started on Lasix, Solumedrol , Pulmicort, Spiriva, and duonebs. Initial labwork also showed acute kidney injury. Dr. Duran, nephrology, Dr. Lafleur, cardiology, and Dr. Hou, pulmonology. ECHO showed normal EF but sever pulmonary HTN. Xarelto continued for anticoagulation. Dr Fernando, urology, consulted for hydronephrosis which was caused by iliac aneurysm - no urology intervention. General surgery, Dr. Horn, consulted for iliac artery aneurysm seen on CT Angio - no intervention , stable in size from previous imaging. Over course, pt often in Afib w. RVR and was started on Cardizem CD, Coreg, and amiodarone. Discharge Exam - Head Exam Head Exam: ATRAUMATIC, NORMAL INSPECTION, NORMOCEPHALIC Discharge Plan - Follow Up Plan Condition: STABLE Disposition: REHAB FACILITY/REHAB UNIT Instructions: Acute Kidney Injury (DC), Dyspnea (GEN) Additional Instructions: Pt stable for discharge to [facility], per Dr. Lomax. Attending physician at [facility] will be Eleuterio Silverio. Pt should continue the following medications: Please maintain needle access to portacath, and mcpherson catheter Xanax 0.5mg PO TID PRN Coradone 200mg PO Daily ASA 81mg PO Daily Pulmicort Respules 0.25mg INH Q12 Coreg 12.5mg PO BID Cardizem CD 360mg PO Daily Colace 100mg PO BID Lasix 40mg IV Daily Insulin Sliding Scale Solumedrol 40mg IV Q8H Zofran 4mg IV Q6H PRN Xarelto 15mg PO Daily Crestor 10mg PO HS Scopolamine 1 patch TD Q3D SCD Flomax 0.4mg PO Daily Spiriva 18mcg INH Q24H Repaglinide 1mg PO TIDAC [facility] Protonix 40mg PO daily Antibiotics: Azithromycin 500mg IV Daily (stop after 3 additional doses; Last dose on 02/16/17) Ceftriaxone 1 gram IV Q12H (stop after 6 additional doses; Last dose 02/16/17) Pt should return to emergency department if symptoms return or worsen. Instructions given to the patient in Hebrew who verbalized understanding.
[2017-02-13 17:58] VITALS: BP 103/60
--- NOTE | 2017-02-13 20:25 | CP.PCM.PN ---
Subjective - Date & Time of Evaluation Date of Evaluation: 02/13/17 Time of Evaluation: 09:00 - Subjective Subjective: No new cardiac events Patient comfortable Denies chest pain and dyspnea Physical Examination - Constitutional Appears: Non-toxic, No Acute Distress - Head Exam Head Exam: ATRAUMATIC, NORMAL INSPECTION - Eye Exam Eye Exam: EOMI - ENT Exam ENT Exam: Mucous Membranes Moist - Respiratory Exam Respiratory Exam: Clear to Ausculation Bilateral, NORMAL BREATHING PATTERN. absent: Accessory Muscle Use, Respiratory Distress - Cardiovascular Exam Cardiovascular Exam: REGULAR RHYTHM, +S1, +S2 - GI/Abdominal Exam GI & Abdominal Exam: Soft, Normal Bowel Sounds. absent: Distended, Firm, Guarding, Tenderness - Extremities Exam Extremities Exam: Normal Inspection. absent: Calf Tenderness - Back Exam Back Exam: NORMAL INSPECTION. absent: CVA tenderness (L), CVA tenderness (R), paraspinal tenderness - Neurological Exam Neurological Exam: Alert, Awake, Oriented x3 - Psychiatric Exam Psychiatric exam: Normal Affect, Normal Mood - Skin Skin Exam: Dry, Intact, Normal Color, Warm Objective - Vital Signs/Intake and Output Vital Signs (last 24 hours): Temp Pulse Resp BP Pulse Ox 97.4 F L 62 20 103/60 90 L 02/13/17 16:00 02/13/17 16:11 02/13/17 16:00 02/13/17 17:56 02/13/17 16:11 Intake and Output: 02/13/17 02/14/17 18:59 06:59 Output Total 1100 Balance -1100 - Medications Medications: Current Medications Acetylcysteine (Acetylcysteine 20%) 4 ml INH RQ6 [facility] Last Admin: 02/13/17 18:59 Dose: 4 ml Albuterol/Ipratropium (Duoneb 3 Mg/0.5 Mg (3 Ml) Ud) 3 ml INH RQ6 [facility] Last Admin: 02/13/17 19:00 Dose: 3 ml Alprazolam (Xanax) 0.5 mg PO TID PRN PRN Reason: Anxiety Last Admin: 02/09/17 10:01 Dose: 0.5 mg Amiodarone HCl (Cordarone) 200 mg PO DAILY [facility] Last Admin: 02/13/17 10:06 Dose: 200 mg Aspirin (Aspirin Chewable) 81 mg PO DAILY [facility] Last Admin: 02/13/17 10:06 Dose: 81 mg Budesonide (Pulmicort Respules) 0.25 mg INH RQ12 [facility] Last Admin: 02/13/17 19:00 Dose: 0.25 mg Carvedilol (Coreg) 12.5 mg PO BID [facility] Last Admin: 02/13/17 17:56 Dose: 12.5 mg Diltiazem HCl (Cardizem Cd) 360 mg PO DAILY [facility] Last Admin: 02/13/17 10:36 Dose: Not Given Docusate Sodium (Colace) 100 mg PO BID [facility] Last Admin: 02/13/17 17:56 Dose: 100 mg Furosemide (Lasix) 40 mg PO DAILY [facility] Azithromycin 500 mg/ Sodium (Chloride) 250 mls @ 250 mls/hr IVPB DAILY [facility] Last Admin: 02/13/17 09:46 Dose: 250 mls/hr Ceftriaxone Sodium 1 gm/ (Sodium Chloride) 100 mls @ 100 mls/hr IVPB Q12H [facility] Last Admin: 02/13/17 11:41 Dose: 100 mls/hr Insulin Human Regular (Novolin R) 0 unit SC ACHS [facility] PRN Reason: Protocol Last Admin: 02/13/17 17:57 Dose: 8 unit Methylprednisolone (Solu-Medrol) 40 mg IVP Q8H [facility] Last Admin: 02/13/17 17:56 Dose: 40 mg [id number] Ethyl Esters (Lovaza) 1 gm PO DAILY [facility] Last Admin: 02/13/17 10:07 Dose: 1 gm Ondansetron HCl (Zofran Inj) 4 mg IVP Q6 PRN PRN Reason: Nausea/Vomiting Pantoprazole Sodium (Protonix Ec Tab) 40 mg PO DAILY [facility] Last Admin: 02/13/17 10:06 Dose: 40 mg Promethazine HCl/Dextromethorphan (Phenergan Dm Syrup) 5 ml PO Q6H PRN PRN Reason: Cough Last Admin: 02/12/17 05:06 Dose: 5 ml Repaglinide (Prandin) 1 mg PO TIDAC [facility] Last Admin: 02/13/17 17:58 Dose: 1 mg Rivaroxaban (Xarelto) 15 mg PO DAILY [facility] Last Admin: 02/13/17 10:06 Dose: 15 mg Rosuvastatin Calcium (Crestor) 10 mg PO HS [facility] Last Admin: 06/05/17 22:05 Dose: 10 mg Scopolamine (Transderm-Scop) 1 patch TD Q3D [facility] Last Admin: 02/12/17 17:06 Dose: 1 patch Tamsulosin HCl (Flomax) 0.4 mg PO DAILY [facility] Last Admin: 02/13/17 10:06 Dose: 0.4 mg Tiotropium [place] (Spiriva) 18 mcg INH RQ24 [facility] Last Admin: 02/13/17 07:41 Dose: 18 mcg - Labs Labs: 02/13/17 06:18 02/13/17 06:18 PT 11.8 SECONDS (9.7-12.2) 02/08/17 13:20 INR 1.1 02/08/17 13:20 APTT 24 SECONDS (21-34) D 02/08/17 13:20 Assessment and Plan - Assessment and Plan (Free Text) Assessment: 81 M with PMH of Dm, COPD, Hyperlipidemia, Abdominal Aortic Aneurysm with Stent , history of paroxysmal afib, presented with SOB and chest pain. Plan: Afib with RVR, wide complex tachycardia Resolved cardizem IV ASA 81mg po daily Xarelto 10mg po daily - on hold Patient to follow up with Dr Rice outpatient COPD exacerbation with underlying cor pulmonale D dimer 3507 BNP 2560 Troponin negative x 3 CXR: mild venous congestion; R hilar prominence and L central venous catheter; R paratracheal airspace opacity likely represents prominent vasculature. Small nodular denisty at the right lung base. repeat CXR 02/08 no active disease V/Q scan low probability for PE Morphine 1 mg IVP Q4H PRN Solumedrol 40mg IVP q8H Pulmicort 0.25mg INH Q12 Spiriva 18mcg INH Q24 Duoneb 3ml inh RQ6H Acetylcysteine 4ml inh q6 Scopolamine 2 ptach td q3day Phenergan DM 5ml po q6 prn cough blood culture prelim negative ECHO: LV mildly dilated. mild to mod concentric LVH. EF > 55%. L atrium mod dilated. RV systolic pressure estimated at 50-60mmHg. Severe pulmonary HTN. lipid panel WNL TSH/T4 WNL O2 via NC Cardio consult, Dr. Lafleur, help appreciated Pulm consult, Dr. Hou, help appreciated. Hx CAD RBBB ASA 81mg po daily Crestor 10mg po hs Lovaza 1gm po daily s/p Cath that showed non-obstructing CAD B/l common iliac A aneurysm CT Abd/pelvis w/o contrast: obstructive hydronephrosis on R secondary to markedly enlarged R common iliac A aneurysm measuring up to 8.2cm. Additionally 5cm L common iliac A anurysm. 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 Duran on board Urology Dr. Fernando on board Renal US: severe unilateral R sided hydronephrosis. large R lower quadrant and pelvic mass likely related to findings. Monitor BUN/Cr HTN Amiodarone 200mg PO daily Cardizem 360mg PO daily Diabetes mellitus ISS Prandin 1mg po TIDAC Accuchecks ACHS Prophylactic measure SCDs Protonix 40 mg PO daily Morphine 1mg IVP Q4 prn pain severe Zofran 4mg IVP Q6 PRN nausea/vomiting Xanax 0.5mg po tid prn Heart healthy diet
--- NOTE | 2017-02-13 22:09 | CP.PCM.PN ---
Subjective - Date & Time of Evaluation Date of Evaluation: 02/13/17 Time of Evaluation: 19:45 - Subjective Subjective: Patient seen just before being discharged to [facility]; reports breathing improved; Objective - Vital Signs/Intake and Output Vital Signs (last 24 hours): Temp Pulse Resp BP Pulse Ox 97.4 F L 62 20 103/60 90 L 02/13/17 16:00 02/13/17 16:11 02/13/17 16:00 02/13/17 17:56 02/13/17 16:11 Intake and Output: 02/13/17 02/14/17 18:59 06:59 Output Total 1100 100 Balance -1100 -100 - Labs Labs: 02/13/17 06:18 02/13/17 06:18 PT 11.8 SECONDS (9.7-12.2) 02/08/17 13:20 INR 1.1 02/08/17 13:20 APTT 24 SECONDS (21-34) D 02/08/17 13:20 - Constitutional Appears: Well, No Acute Distress - Head Exam Head Exam: NORMOCEPHALIC - Eye Exam Eye Exam: Normal appearance. absent: Scleral icterus - ENT Exam ENT Exam: Mucous Membranes Moist - Respiratory Exam Respiratory Exam: Prolonged Expiratory Phase - Cardiovascular Exam Cardiovascular Exam: RRR, +S1, +S2 - GI/Abdominal Exam GI & Abdominal Exam: Soft. absent: Distended, Tenderness - Extremities Exam Extremities Exam: Normal Capillary Refill Additional comments: L leg edema; - Neurological Exam Neurological Exam: Alert, Awake - Psychiatric Exam Psychiatric exam: Normal Affect, Normal Mood - Skin Skin Exam: Normal Color. 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; very susceptible to hemodynamic changes; monitor regularly, avoid over- diuresis and BP drops; Status: Acute (3) Pulmonary hypertension Assessment & Plan: Likely due to COPD; on lasix 40 mg IV daily, changing to PO to avoid over- diuresis with patient being sent to [facility]; Status: Acute (4) Hypertension Assessment & Plan: On cardizem CD and coreg for afib rate control; marginal BP, need to monitor closely; Status: Chronic (5) CAD (coronary artery disease) Assessment & Plan: Non-obstructive disease; need to continue high potency statin; Status: Acute (6) Iliac aneurysm Status: Acute
--- NOTE | 2017-02-15 01:21 | CARD ---
APPROVED REPORT EKG Measurement Heart [id number] P246 [id number] <Conclusion> Atrial flutter with variable AV block Right bundle branch block Abnormal ECG
== END 2017-02-13 21:15 | DRG 190 ==
LOC: C.ER 21:59 → C.3T 01-30 01:36 → C.9E 01-30 01:46 → C.5T 01-30 01:57 → OBSVTOIN 01-31 13:44 → C.9I 02-01 11:30 → C.6T 02-06 16:54
PROVIDERS: ADMIT Internal Medicine; ATTEND Internal Medicine
PROC: B2151ZZ Fluoroscopy of Left Heart using Low Osmolar Contrast (ICD-10-PCS; 2017-02-07)
PROC: B2111ZZ Fluoroscopy of Multiple Coronary Arteries using Low Osmolar Contrast (ICD-10-PCS; 2017-02-07)
PROC: B4101ZZ Fluoroscopy of Abdominal Aorta using Low Osmolar Contrast (ICD-10-PCS; 2017-02-07)
PROC: 4A023N7 Measurement of Cardiac Sampling and Pressure, Left Heart, Percutaneous Approach (ICD-10-PCS; principal; 2017-02-07 10:00)
DX: J44.1 Chronic obstructive pulmonary disease with (acute) exacerbation (principal); J18.9 Pneumonia, unspecified organism; N17.9 Acute kidney failure, unspecified; I74.5 Embolism and thrombosis of iliac artery; E11.22 Type 2 diabetes mellitus with diabetic chronic kidney disease; I48.92 Unspecified atrial flutter; I25.41 Coronary artery aneurysm; N18.3 Chronic kidney disease, stage 3 (moderate); I47.1 Supraventricular tachycardia; E87.1 Hypo-osmolality and hyponatremia; I48.0 Paroxysmal atrial fibrillation; J45.901 Unspecified asthma with (acute) exacerbation; N13.30 Unspecified hydronephrosis; J44.0 Chronic obstructive pulmonary disease with (acute) lower respiratory infection; I27.2 Other secondary pulmonary hypertension; E86.9 Volume depletion, unspecified; I12.9 Hypertensive chronic kidney disease with stage 1 through stage 4 chronic kidney disease, or unspecified chronic kidney disease; I25.10 Atherosclerotic heart disease of native coronary artery without angina pectoris; I45.10 Unspecified right bundle-branch block; I71.4 Abdominal aortic aneurysm, without rupture; I72.3 Aneurysm of iliac artery; E83.39 Other disorders of phosphorus metabolism; N14.1 Nephropathy induced by other drugs, medicaments and biological substances; T50.2X5A Adverse effect of carbonic-anhydrase inhibitors, benzothiadiazides and other diuretics, initial encounter; T50.8X5A Adverse effect of diagnostic agents, initial encounter; M19.90 Unspecified osteoarthritis, unspecified site; D64.9 Anemia, unspecified; E83.42 Hypomagnesemia; E78.5 Hyperlipidemia, unspecified; N40.0 Benign prostatic hyperplasia without lower urinary tract symptoms; E78.00 Pure hypercholesterolemia, unspecified; K59.00 Constipation, unspecified; M41.9 Scoliosis, unspecified; W19.XXXA Unspecified fall, initial encounter; Y92.002 Bathroom of unspecified non-institutional (private) residence as the place of occurrence of the external cause; Z79.4 Long term (current) use of insulin; Z87.891 Personal history of nicotine dependence; Z79.02 Long term (current) use of antithrombotics/antiplatelets

== ENCOUNTER 2017-02-23 05:56 | Inpatient (IN) | payer MEDICARE, MEDICAID ==
[2017-02-23 05:56] VITALS: PULSE 154; BMI 25.0
[2017-02-23] MEDS ORDERED: Propofol 10 mg/ml 1,000 MG/100 ML VIAL ONE (06:18)
[2017-02-23] MEDS ORDERED: Sodium Chloride 0.9% 1,000 ML IV ONE ×3 (06:20→08:22)
[2017-02-23] MEDS ORDERED: Propofol 10 mg/ml Inj (20 ML) IV ONE (06:20)
[2017-02-23] MEDS: DOPamine 400mg/250ml D5W 400 MG/250 ML BAG IV PRN ×2 (06:30→07:43)
[2017-02-23] MEDS ORDERED: DOPamine 400mg/250ml D5W 400 MG/250 ML BAG IV ONE (06:34)
[2017-02-23 06:49] LABS: MEAN CELL VOLUME 103.9 fL (80.0-94.0); MEAN CORPUSCULAR HEMOGLOBIN 33.1 pg (27.0-31.0); MEAN CORPUSCULAR HGB CONC 31.9 g/dL (33.0-37.0); MEAN PLATELET VOLUME 9.2 fL (7.2-11.7); RED CELL DISTRIBUTION WIDTH 27.5 % (11.5-14.5)
--- NOTE | 2017-02-23 07:00 | C.PDOC ---
History Of Present Illness <Megan Christensen A - Last Filed: 02/23/17 08:39> <Joseph River R - Last Filed: 02/23/17 17:57> A 81 y/o male brought in by EMS due to pt being unresponsive and hypotensive with a pO2 saturation of 77. (RiverJoseph R) <Megan Christensen A - Last Filed: 02/23/17 08:39> History Per: Patient History/Exam Limitations: clinical condition (Unresponsive) Onset/Duration Of Symptoms: Hrs Current Symptoms Are (Timing): Still Present Severity: Moderate Recent travel outside of the [place]: No <Joseph River R - Last Filed: 02/23/17 17:57> Time Seen by Provider: 02/23/17 06:09 Chief Complaint (Nursing): Respiratory Distress Past Medical History Reviewed: Historical Data, Nursing Documentation, Vital Signs - Medical History PMH: Anemia, Arthritis, Asthma, COPD, Diabetes, Emphysema, HTN, Hypercholesterolemia Family History: States: Unknown Family Hx - Social History Hx Alcohol Use: No Hx Substance Use: No - Immunization History Hx Tetanus Toxoid Vaccination: No Hx Influenza Vaccination: No Hx Pneumococcal Vaccination: No <Joseph River R - Last Filed: 02/23/17 17:57> Vital Signs: Last Vital Signs Temp 94.6 F L 02/23/17 17:00 Pulse 130 H 02/23/17 17:10 Resp 18 02/23/17 17:10 BP 110/56 L 02/23/17 17:08 Pulse Ox 77 L 02/23/17 17:56 - [facility] Procedures ABD [place] REPAIR NEC (05/15/15) FLUOROSCOPY OF ABDOMINAL AORTA USING LOW OSMOLAR CONTRAST (01/31/17) FLUOROSCOPY OF LEFT HEART USING LOW OSMOLAR CONTRAST (01/31/17) FLUOROSCOPY OF MULT COR ART USING L OSM CONTRAST (01/31/17) MEASURE OF CARDIAC SAMPL & PRESSURE, L HEART, PERC APPROACH (01/31/17) OTH LYSIS-PERITONEAL ADHES (05/15/15) Review Of Systems Review Of Systems: ROS cannot be obtained secondary to pt's inabilty to answer questions. <RiverLisbethJoseph R - Last Filed: 02/23/17 17:57> Physical Exam - Physical Exam Appears: In Acute Distress, Chronically Ill, Other (Lethargic and non-responsive ) Skin: Diaphoretic, Pale Head: Atraumatic, Normacephalic Eye(s): bilateral: Normal Inspection, PERRL, EOMI Nose: Normal Oral Mucosa: Dry Tongue: No Swelling, No Lesions Lips: Normal Appearing Throat: Normal Neck: Normal, Normal ROM, Trachea Midline, No Trachea Deviated Chest: Symmetrical, No Deformity, No Tenderness, No Subcutaneous Emphysema Cardiovascular: Rhythm Regular, No Murmur, No JVD Respiratory: No Rales, No Rhonchi, No Wheezing, Other (shallow respiration) Gastrointestinal/Abdominal: Normal Exam, Soft, No Tenderness Extremity: Pedal Edema (Bilateral legs), Capillary Refill (<2secs) Extremity: Bilateral: Normal Color And Temperature Neurological/Psych: Other (Pt is unresponsive at this time) <Joseph River - Last Filed: 02/23/17 17:57> ED Course And Treatment - Laboratory Results Result Diagrams: 02/23/17 06:33 02/23/17 06:33 <Megan Christensen - Last Filed: 02/23/17 08:39> - Laboratory Results Result Diagrams: 02/23/17 17:31 02/23/17 13:59 Lab Interpretation: Abnormal O2 Sat by Pulse Oximetry: 77 Pulse Ox Interpretation: Abnormal Progress Note: Patient subseqquently intubate. <Joseph River - Last Filed: 02/23/17 17:57> Medical Decision Making <Megan Christensen A - Last Filed: 02/23/17 08:39> <Joseph River R - Last Filed: 02/23/17 17:57> Medical Decision Making: Impression: A 81 y/o male brought in by EMS due to pt being unresponsive and hypotensive with a pO2 of 77. PROCEDURE: INTUBATION Performed by the emergency provider Time: 06:15 Consent: Discussion of the risks, benefits, and alternatives to the procedure, along with informed consent was precluded by the urgency of the procedure and the patient condition. Timeout: A timeout to verify the correct patient, procedure, and site was performed. Indication: Due to hypotensive condition and a pO2 sat of 77 Pre-oxygenation: [id number] Medications: Diprivan . See MAR for details. ETT Size: 8 Confirmation: Cords directly visualized as tube passed, good bilateral breath sounds, positive CO2 detector color change, tube fogging, adequate chest rise, improving pulse oximetry reading, improved skin color, and absence of gastric sounds,. ETT Secured: The cuff was inflated and the tube was secured appropriately at a distance of 22cm at the lip. Post-Procedure: There were no immediate complications. CXR Confirmation: Yes (Joseph River) Disposition <Megan Christensen - Last Filed: 02/23/17 08:39> - Disposition Disposition Time: 07:00 - POA Present On Arrival: None <Joseph River - Last Filed: 02/23/17 17:57> - Disposition Disposition: HOSPITALIZED Condition: SERIOUS - Clinical Impression Clinical Impression: ESRD (end stage renal disease) on dialysis, Respiratory failure <FerminMegan velazquez - Last Filed: 02/23/17 08:39> - Scribe Statement The provider has reviewed the documentation as recorded by the Scribe <Joseph River - Last Filed: 02/23/17 17:57> - Scribe Statement John cervantes All medical record entries made by the Scribe were at my direction and personally dictated by me. I have reviewed the chart and agree that the record accurately reflects my personal performance of the history, physical exam, medical decision making, and the department course for this patient. I have also personally directed, reviewed, and agree with the discharge instructions and disposition. (Joseph River) Addendum <Megan Christensen - Last Filed: 02/23/17 08:39> <Joseph River - Last Filed: 02/23/17 17:57> Addendum: 02/23/17 07:51 Care of patient taken over from Dr. River at 7:15am. Patient intubated already by him, hypotensive, IV pressors (dopamine) being given via port on chest. Unable to obtain peripheral access/blood - right femoral central line inserted by me (2 attempts). IV fentanyl ordered for sedation, as patient was starting to wake up. Blood products ordered - RBCS, platelets. Will obtain emergent consent with two physicians for transfusion. Pending coags, repeat CXR (OG inserted by me). 02/23/17 08:05 Spoke with digital advertising analyst Dr. Moreau, he agrees with ICU admission for respiratory distress, severe anemia, thrombocytopenia, renal failure. He agrees with emergent consent for transfusion of blood products, will sign form when patient gets upstairs. 02/23/17 08:17 CXR shows OG tube looped in esophagus. Removed and reinserted by me, (+) epigastric gurgle auscultated after insertion. 02/23/17 08:30 Patient's BP 60/30 on max dopamine rate, IV levophed also hung and started. Blood products pending arrival. Patient to be transported to ICU. Dr. Sage Silverio aware of ICU admission. (Megan Christensen) Physician Patient Turnover Patient Signed Over To: Megan Christensen <Joseph River - Last Filed: 02/23/17 17:57> Proc: Central Venous Access - Time Performed Time Performed: 07:20 - Time Out Time Out: Side verified - Procedure Procedure: Central Line placement: Right Technique:: Seldinger technique, Ultrasound guidance - Performed by Performed by: Attending Physician - Indications Tube type:: Triple lumen - Number of Attempts Attempts: 2 - Line sutured in place Line sutured in place:: Yes - Patient tolerated procedure Patient Tolerated Procedure:: Well <Megan Christensen - Last Filed: 02/23/17 08:39>
[2017-02-23 07:02] LABS: ALB/GLOB RATIO 1.3 (1.0-2.1); BILIRUBIN,TOTAL 2.2 mg/dL (0.2-1.3); TOTAL PROTEIN 4.1 g/dL (6.3-8.3)
[2017-02-23 07:03] LABS: CALCIUM 6.3 mg/dl (8.6-10.4)
[2017-02-23 07:07] LABS: PLATELET COUNT 20 K/uL (130-400)
[2017-02-23 07:33] LABS: TROPONIN I 0.16 ng/mL (0.00-0.120)
[2017-02-23 07:33] LABS: VENOUS BLOOD GAS PCO2 53 mmHg (40-60); VENOUS BLOOD PH 7.33 (7.32-7.43)
[2017-02-23 07:34] LABS: POTASSIUM 4.9 mmol/L (3.6-5.2)
[2017-02-23 08:24] LABS: INR 2.9
[2017-02-23 08:44] LABS: LYMPH # 0.2 K/uL (1.0-4.3); MONO # 0.4 K/uL (0.0-0.8)
[2017-02-23 09:09] LABS: RBC URINE 384 /hpf (0-3); URINE BACTERIA RARE (<OCC); URINE BILIRUBIN NEGATIVE (NEGATIVE); URINE BLOOD 3+ (NEGATIVE); URINE COLOR Amber (YELLOW); URINE GLUCOSE (UA) NORMAL (Normal); URINE KETONE NEGATIVE (NEGATIVE); URINE PROTEIN 2+ mg/dL (NEGATIVE); URINE UROBILINOGEN NORMAL mg/dL (0.2-1.0); WBC URINE 79 /hpf (0-5)
[2017-02-23 09:24] LABS: URINE LEUKOCYTE ESTERASE 2+ Leu/uL (Negative)
[2017-02-23] MEDS ORDERED: Phenylephrine 30 MG in Sodium Chloride 0.9% 250 ML IV PRN (09:33)
[2017-02-23 09:52] LABS: NEUTROPHIL 85 % (50-75); NUCLEATED RED BLOOD CELL 5 % (0-0); TOTAL CELLS COUNTED 100
--- NOTE | 2017-02-23 10:25 | RAD ---
HISTORY: r/o infiltrate bed 4 COMPARISON: 01/30/2017. FINDINGS: The endotracheal tube terminates 1.21 cm proximal to the jordyn. The left IJV line terminates at the cavoatrial junction. LUNGS: The right lung is clear. There is haziness in the left lower lobe. PLEURA: No significant right pleural effusion identified, no pneumothorax apparent. CARDIOVASCULAR: Normal. OSSEOUS STRUCTURES: No significant abnormalities. VISUALIZED UPPER ABDOMEN: Normal. OTHER FINDINGS: None. IMPRESSION: 1. Endotracheal tube terminates 1.1 cm proximal to the jordyn. 2. B suspect left lower lobe atelectasis/ pneumonia and small pleural effusion. Follow-up to resolution is advised.
--- NOTE | 2017-02-23 10:27 | RAD ---
HISTORY: s/p intubation COMPARISON: Plain radiographs performed earlier the same day FINDINGS: The endotracheal tube and left IJV line are stable in position. LUNGS: The right lung is clear. Worsening left retrocardiac opacity. PLEURA: Persistent small left pleural effusion. No significant right pleural effusion identified, no pneumothorax apparent. CARDIOVASCULAR: Normal. OSSEOUS STRUCTURES: No significant abnormalities. VISUALIZED UPPER ABDOMEN: Normal. OTHER FINDINGS: None. IMPRESSION: Stable position of endotracheal tube and left IJV line. Worsening left lower lobe atelectasis/pneumonia. Small left pleural effusion.
[2017-02-23] MEDS: Sodium Chloride 0.9% 1,000 ML IV SCH ×2 (10:30→17:43)
[2017-02-23] MEDS: cefTRIAXone 2 GM in Sodium Chloride 0.9% 100 ML IVPB SCH (11:30)
--- NOTE | 2017-02-23 12:12 | CT ---
CT chest, abdomen, and pelvis without IV contrast Indication: Rule out bleeding Technique: Contiguous axial images of the chest, abdomen, and pelvis without oral or IV contrast. Coronal and Sagittal reformats generated and reviewed. This CT exam was performed using 1 or more of the falling dose reduction techniques: Automated exposure control, adjustment of the MAA and/or kV according to patient size, and/or use of iterative reconstruction technique. Radiation dose: Total exam DLP = 1667.70 MGy-cm. Comparison: CT angio abdomen and pelvis with contrast performed 01/31/17, CT abdomen and pelvis without oral or IV contrast performed 01/30/17 Findings: Endotracheal tube terminates, approximately 9 mm. Nasogastric tube extends expected location of the stomach. The unenhanced mediastinal and hilar vascular structures appear grossly unremarkable. Mild cardiomegaly. Dense coronary artery and valvular calcifications. Small pericardial effusion. 13 mm prevascular lymph node. Inferior right upper lobe consolidation. Qlin-hymmlbe-kebw-right dependent consolidations. No significant pleural effusion. No visible pneumothorax. Small fluid within the distal esophagus consistent with gastroesophageal reflux. Ectatic thoracic aorta with dense atherosclerotic calcifications. 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 This involves the supra-and infrarenal abdominal aorta. Evidence of previous repair. 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 15 mm hepatic dome low-density lesion and 15 mm medial right inferior hepatic lobe low-density lesion, possibly cysts. 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 Marked renal cortical thinning/ atrophy. Right-sided hydroureter nephrosis. Unremarkable unenhanced appearance of the left kidney. Interval development of mesenteric and peripancreatic inflammatory changes which extend into the lower abdomen. Fatty atrophy of the pancreas. The noncontrast spleen, adrenal glands, and gallbladder appear unremarkable. The stomach is nondistended. Lack of oral contrast limits evaluation for bowel pathology. The bowel loops appear within normal limits of caliber without evidence of intestinal obstruction. Diverticulosis without CT evidence of acute diverticulitis. There is no definite free air. Boyce catheter within a decompressed urinary bladder. Right femoral venous catheter. Soft tissue edema. Osseous demineralization. Multilevel degenerative changes. Severe scoliosis. Impression: Endotracheal tube terminates approximately 9 mm above the jordyn ; 3 cm above the jordyn is ideal. . Nasogastric tube extends expected location of the stomach. Right femoral venous catheter. Mild cardiomegaly. Dense coronary artery and valvular calcifications. Small pericardial effusion. 13 mm prevascular lymph node. Inferior right upper lobe consolidation. Zciw-copjpec-idak-right dependent consolidations. Small fluid within the distal esophagus consistent with gastroesophageal reflux. Ectatic thoracic aorta with dense atherosclerotic calcifications. 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 This involves the supra-and infrarenal abdominal aorta. Evidence of previous repair. 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 15 mm hepatic dome low-density lesion and 15 mm medial right inferior hepatic lobe low-density lesion, possibly cysts. 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 Marked renal cortical thinning/ atrophy. Right-sided hydroureteronephrosis. Interval development of mesenteric and peripancreatic inflammatory changes which extend into the lower abdomen. Correlate clinically. Recommend correlation with amylase and lipase to exclude possibility of pancreatitis. Fatty atrophy of the pancreas. Diverticulosis without CT evidence of acute diverticulitis. Boyce catheter within a decompressed urinary bladder. Soft tissue edema. Case and findings discussed with IVOLA Beck on 02/23/17 at 12:01 p.m.
--- NOTE | 2017-02-23 12:46 | CP.PCM.HP ---
Past Patient History - Past Medical History & Family History Past Medical History?: No - Past Social History Smoking Status: Former Smoker - CARDIAC Hx Hypercholesterolemia: Yes Hx Hypertension: Yes - PULMONARY Hx Asthma: Yes Hx Chronic Obstructive Pulmonary Disease (COPD): Yes Hx Emphysema: Yes - NEUROLOGICAL Hx Neurological Disorder: No - HEENT Hx Cataracts: Yes (5-YRS AGO) - RENAL Other/Comment: Pre renal - ENDOCRINE/METABOLIC Hx Diabetes Mellitus Type 2: Yes - HEMATOLOGICAL/ONCOLOGICAL Hx Anemia: Yes - INTEGUMENTARY Hx Dermatological Problems: No Other/Comment: left leg blister open like slightly red dsg on - MUSCULOSKELETAL/RHEUMATOLOGICAL Hx Arthritis: Yes Hx Falls: Yes Hx Unsteady Gait: Yes - GASTROINTESTINAL Hx Gastrointestinal Disorders: No - GENITOURINARY/GYNECOLOGICAL Hx Prostate Problems: Yes (Enlarged Prostate) - PSYCHIATRIC Hx Substance Use: No - SURGICAL HISTORY Hx Surgeries: Yes Hx Abdominal Aortic Aneurysm Repair: Yes (1999) Hx Cataract Extraction: Yes - ANESTHESIA Hx Anesthesia: Yes Hx Anesthesia Reactions: No Meds Allergies/Adverse Reactions: Allergies Allergy/AdvReac Type Severity Reaction Status Date / Time No Known Allergies Allergy Verified 02/23/17 07:03 Physical Exam - Constitutional Appears: Well - Head Exam Head Exam: ATRAUMATIC, NORMAL INSPECTION, NORMOCEPHALIC - Eye Exam Eye Exam: EOMI, Normal appearance, PERRL Pupil Exam: NORMAL ACCOMODATION, PERRL - ENT Exam ENT Exam: Mucous Membranes Moist, Normal Exam - Neck Exam Neck exam: Positive for: Normal Inspection - Respiratory Exam Respiratory Exam: Decreased Breath Sounds - Cardiovascular Exam Cardiovascular Exam: REGULAR RHYTHM, +S1, +S2 - GI/Abdominal Exam GI & Abdominal Exam: Diminished Bowel Sounds, Soft - Rectal Exam Rectal Exam: Deferred Results - Vital Signs Recent Vital Signs: Last Vital Signs Temp 91.6 F L 02/23/17 10:30 Pulse 138 H 02/23/17 12:00 Resp 18 02/23/17 12:00 BP 89/62 L 02/23/17 12:00 Pulse Ox 100 02/23/17 08:39 - Labs Result Diagrams: 02/23/17 06:33 02/23/17 06:33 Labs: Laboratory Results - last 24 hr 02/23/17 08:31 Urine Color [place] Urine Clarity Hazy Urine pH 5.0 Ur Specific [place] 1.015 Urine Protein 2+ H Urine Glucose (UA) Normal Urine Ketones Negative Urine Blood 3+ H Urine Nitrate Negative Urine Bilirubin Negative Urine Urobilinogen Normal Ur Leukocyte Esterase 2+ H Urine WBC (Auto) 79 H Urine RBC (Auto) 384 H Urine Bacteria Rare Hyaline Casts 11-20 H
--- NOTE | 2017-02-23 12:55 | CP.PCM.HP ---
History of Present Illness - History of Present Illness History of Present Illness: HPI: Patient is an 81 year old male with medical history of AAA s/p stent placement, bilateral iliac aneurysms, chronic kidney disease, hypertension, DM, COPD, and paroxysmal atrial fibrillation brought into ED from retirement for respiratory distress. Patient was found to be severely hypotensive with initial blood pressure of 48/31 in ED. Of note, hematuria was visualized from mcpherson output. CBC revealed a hemoglobin of 4.8 and platelets of 20. Ecchymoses noted to bilateral arms, abdomen, and flank. Reportedly, patient was initially alert and responsive but required intubation due to impending respiratory failure. Full ROS cannot be obtained at this time. VBG performed is as follows: pH 7.33, pO2 25, pCO2 53, HCO3 24.1, Lactate 11.6 on FiO2 100, PEEP 5 PMH: see above Medications: Xarelto, Aspirin 81 mg po daily, Lovaza 1 gm po daily, Crestor 10 mg po HS, Advair Diskus 250/50 IH HS, Spiriva 18 mcg INH RQ24, Pulmicort 0.25 mg INH RQ12, Pantoprazole 40 mg po daily, Flomax 0.4 mg po daily, Lasix 40 mg po daily, Colace 100 mg po BID, Cardizem CD 360 mg po daily, Coreg 12.5 mg po BID, Scopolamine patch TD Q3D, Repaglinide 1 mg po TIDAC Allergies: NKDA PSH: Hernia repair X 2, Abdominal Aortic Aneurysm Stent, Vascular grafts, Incarcerated hernia repair 05/2015 Hosp: Recent ICU admission for SOB and CP FH: Mother -Throat CA, brother - CAD Social: > 50 pack years - Quit 15 years ago, denies ETOH/illicit drug use, uses Rolling walker at home. Present on Admission - Present on Admission Any Indicators Present on Admission: No History of DVT/PE: No History of Uncontrolled Diabetes: No Urinary Catheter: No Decubitus Ulcer Present: No Review of Systems - Review of Systems Systems not reviewed;Unavailable: Intubated Review of Systems: ROS cannot be obtained as patient intubated and sedated on Fentanyl Past Patient History - Past Medical History & Family History Past Medical History?: No - Past Social History Smoking Status: Former Smoker - CARDIAC Hx Hypercholesterolemia: Yes Hx Hypertension: Yes - PULMONARY Hx Asthma: Yes Hx Chronic Obstructive Pulmonary Disease (COPD): Yes Hx Emphysema: Yes - NEUROLOGICAL Hx Neurological Disorder: No - HEENT Hx Cataracts: Yes (5-YRS AGO) - RENAL Other/Comment: Pre renal - ENDOCRINE/METABOLIC Hx Diabetes Mellitus Type 2: Yes - HEMATOLOGICAL/ONCOLOGICAL Hx Anemia: Yes - INTEGUMENTARY Hx Dermatological Problems: No Other/Comment: left leg blister open like slightly red dsg on - MUSCULOSKELETAL/RHEUMATOLOGICAL Hx Arthritis: Yes Hx Falls: Yes Hx Unsteady Gait: Yes - GASTROINTESTINAL Hx Gastrointestinal Disorders: No - GENITOURINARY/GYNECOLOGICAL Hx Prostate Problems: Yes (Enlarged Prostate) - PSYCHIATRIC Hx Substance Use: No - SURGICAL HISTORY Hx Surgeries: Yes Hx Abdominal Aortic Aneurysm Repair: Yes (1999) Hx Cataract Extraction: Yes - ANESTHESIA Hx Anesthesia: Yes Hx Anesthesia Reactions: No Meds Allergies/Adverse Reactions: Allergies Allergy/AdvReac Type Severity Reaction Status Date / Time No Known Allergies Allergy Verified 02/23/17 07:03 Physical Exam - Constitutional Appears: Chronically Ill Additional comments: intubated, sedated - Head Exam Head Exam: ATRAUMATIC, NORMAL INSPECTION - Eye Exam Eye Exam: PERRL - ENT Exam ENT Exam: Mucous Membranes Dry - Respiratory Exam Respiratory Exam: Decreased Breath Sounds. absent: Clear to Auscultation Bilateral - Cardiovascular Exam Cardiovascular Exam: Tachycardia, +S1, +S2. absent: REGULAR RHYTHM - GI/Abdominal Exam GI & Abdominal Exam: Soft. absent: Distended, Firm, Guarding Additional comments: ecchymoses present to abdomen - Exam Additional comments: mcpherson in place, little output - Extremities Exam Extremities exam: Negative for: normal capillary refill, normal inspection, pedal edema Additional comments: ecchymoses present to left upper extremity - Neurological Exam Additional comments: intubated/sedated - Psychiatric Exam Additional comments: sedated - Skin Skin Exam: Petechiae Additional comments: ecchymoses present to abdomen, flank and upper extremities Results - Vital Signs Recent Vital Signs: Last Vital Signs Temp 91.6 F L 02/23/17 10:30 Pulse 138 H 02/23/17 12:00 Resp 18 02/23/17 12:00 BP 89/62 L 02/23/17 12:00 Pulse Ox 100 02/23/17 08:39 - Labs Result Diagrams: 02/23/17 06:33 02/23/17 06:33 Labs: Laboratory Results - last 24 hr 02/23/17 08:31 Urine Color Mary Beth Urine Clarity Hazy Urine pH 5.0 Ur Specific [place] 1.015 Urine Protein 2+ H Urine Glucose (UA) Normal Urine Ketones Negative Urine Blood 3+ H Urine Nitrate Negative Urine Bilirubin Negative Urine Urobilinogen Normal Ur Leukocyte Esterase 2+ H Urine WBC (Auto) 79 H Urine RBC (Auto) 384 H Urine Bacteria Rare Hyaline Casts 11-20 H Assessment & Plan - Assessment and Plan (Free Text) Assessment: Respiratory Distress possibly secondary to sepsis/pneumonia vs. PR Intubated - FiO2 100, PEEP 5, RR 14, Tidal Volume 450 VBG: pH 7.33, pO2 25, pCO2 53, HCO3 24.1, Lactate 11.6 No leukocytosis, afebrile Transferred to ICU for management Ceftriaxone 2 gm IVPB Q24 started for possible pneumonia f/u Blood cx Sedated on Fentanyl IV Troponin I elevated 0.1600. F/u repeat trops f/u Echocardiogram CXR: 1. Endotracheal tube terminates 1.1 cm proximal to the jordyn. 2. Suspect left lower lobe atelectasis/ pneumonia and small pleural effusion. Follow-up to resolution is advised. Chest/Abd/Pelvis CT w/o IV contrast: Endotracheal tube terminates, approximately 9 mm. Nasogastric tube extends expected location of the stomach. The unenhanced mediastinal and hilar vascular structures appear grossly unremarkable. Mild cardiomegaly. Dense coronary artery and valvular calcifications. Small pericardial effusion. 13 mm prevascular lymph node. Inferior right upper lobe consolidation. Tzop-[id number]-right dependent consolidations. No significant pleural effusion. No visible pneumothorax. Small fluid within the distal esophagus consistent with gastroesophageal reflux. Ectatic thoracic aorta with dense atherosclerotic calcifications. 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 This involves the supra- and infrarenal abdominal aorta. Evidence of previous repair. 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 15 mm hepatic dome low-density lesion and 15 mm medial right inferior hepatic lobe low-density lesion, possibly cysts. 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 Marked renal cortical thinning/ atrophy. Right-sided hydroureter nephrosis. Unremarkable unenhanced appearance of the left kidney. Interval development of mesenteric and peripancreatic inflammatory changes which extend into the lower abdomen. Fatty atrophy of the pancreas. The noncontrast spleen, adrenal glands, and gallbladder appear unremarkable. The stomach is nondistended. Lack of oral contrast limits evaluation for bowel pathology. The bowel loops appear within normal limits of caliber without evidence of intestinal obstruction. Diverticulosis without CT evidence of acute diverticulitis. There is no definite free air. Mcpherson catheter within a decompressed urinary bladder. Right femoral venous catheter. Soft tissue edema. Osseous demineralization. Multilevel degenerative changes. Severe scoliosis. Interval development of mesenteric and peripancreatic inflammatory changes which extend into the lower abdomen. Correlate clinically. Recommend correlation with amylase and lipase to exclude possibility of pancreatitis. Fatty atrophy of the pancreas. Diverticulosis without CT evidence of acute diverticulitis. Hypotension Started on Norepinephrine drip, Phenylephrine drip, and Dopamine drip. Monitor Severe Macrocytic Anemia Hemoglobin/Hematocrit 4.8/15.0 Evaluated for possible abdominal bleed- no evidence of bleed on CT study Pt visibly bleeding on suction, from mouth and urine Urinalysis: blood 3+, RBC 384 Type & Screen/Type & Cross Transfused 2 units of PRBCs Monitor Thrombocytopenia Platelets of 20 FFP transfusion Monitor Transaminitis likely shock liver AST/ALT: 460/518 Monitor Prophylaxis blanket warmer - Date & Time Date: 02/23/17 Time: 14:23
[2017-02-23 14:09] LABS: HEMATOCRIT 19.6 % (35.0-51.0); MEAN CORPUSCULAR HEMOGLOBIN 30.9 pg (27.0-31.0); MEAN CORPUSCULAR HGB CONC 33.4 g/dL (33.0-37.0); MEAN PLATELET VOLUME 7.2 fL (7.2-11.7); RED CELL DISTRIBUTION WIDTH 16.3 % (11.5-14.5); WHITE BLOOD COUNT 3.7 K/uL (4.8-10.8)
[2017-02-23 14:13] LABS: MEAN CELL VOLUME 92.5 fL (80.0-94.0)
[2017-02-23 14:28] LABS: POTASSIUM 4.1 mmol/L (3.6-5.2)
--- NOTE | 2017-02-23 17:07 | CP.PCM.CON ---
History of Present Illness - History of Present Illness History of Present Illness: 81 year old male with medical history of AAA s/p stent placement, bilateral iliac aneurysms, chronic kidney disease, hypertension, DM, COPD, and paroxysmal atrial fibrillation brought into ED from intermediate for respiratory distress. Patient intubated in ED. Patient became hypotensive, with severe anemia, elevated INR, thrombocytopenia, blood in ETT. Because of this it was believed that the patient was bleeding. Blood transfusion started with stabilization of blood pressure. Urgent CT abdomen performed which did not show any signs of bleeding. Patient then became hypotensive again even while on pressors. It is now believed that patient may be septic, but source is uncertain. Suspicion is UTI, but also has small RUL lung infiltrate. Review of Systems - Review of Systems Systems not reviewed;Unavailable: Intubated Past Patient History - Past Medical History & Family History Past Medical History?: No - Past Social History Smoking Status: Former Smoker - CARDIAC Hx Hypercholesterolemia: Yes Hx Hypertension: Yes - PULMONARY Hx Asthma: Yes Hx Chronic Obstructive Pulmonary Disease (COPD): Yes Hx Emphysema: Yes - NEUROLOGICAL Hx Neurological Disorder: No - HEENT Hx Cataracts: Yes (5-YRS AGO) - RENAL Other/Comment: Pre renal - ENDOCRINE/METABOLIC Hx Diabetes Mellitus Type 2: Yes - HEMATOLOGICAL/ONCOLOGICAL Hx Anemia: Yes - INTEGUMENTARY Hx Dermatological Problems: No Other/Comment: left leg blister open like slightly red dsg on - MUSCULOSKELETAL/RHEUMATOLOGICAL Hx Arthritis: Yes Hx Falls: Yes Hx Unsteady Gait: Yes - GASTROINTESTINAL Hx Gastrointestinal Disorders: No - GENITOURINARY/GYNECOLOGICAL Hx Prostate Problems: Yes (Enlarged Prostate) - PSYCHIATRIC Hx Substance Use: No - SURGICAL HISTORY Hx Surgeries: Yes Hx Abdominal Aortic Aneurysm Repair: Yes (1999) Hx Cataract Extraction: Yes - ANESTHESIA Hx Anesthesia: Yes Hx Anesthesia Reactions: No Meds Allergies/Adverse Reactions: Allergies Allergy/AdvReac Type Severity Reaction Status Date / Time No Known Allergies Allergy Verified 02/23/17 07:03 - Medications Medications: Current Medications Hydrocortisone Sodium Succinate (Solu-Cortef) 50 mg IV Q6H NGUYỄN Fentanyl Citrate 2,500 mcg/ (Sodium Chloride) 250 mls @ 86.18 mls/hr IV .Q2H55M PRN; 10 MCG/KG/HR PRN Reason: Protocol Last Titration: 02/23/17 16:02 Dose: 0 mcg/kg/hr, 0 mls/hr Phenylephrine HCl 30 mg/ (Sodium Chloride) 253 mls @ 10.12 mls/hr IV .Q24H PRN ; Protocol; 20 MCG/MIN PRN Reason: TITRATE PER MD ORDER Last Titration: 02/23/17 14:00 Dose: 180 mcg/min, 91.08 mls/hr Sodium Chloride (Sodium Chloride 0.9%) 1,000 mls @ 150 mls/hr IV .Q6H40M NGUYỄN Last Admin: 02/23/17 10:30 Dose: 150 mls/hr Ceftriaxone Sodium 2 gm/ (Sodium Chloride) 100 mls @ 100 mls/hr IVPB DAILY NGUYỄN Last Admin: 02/23/17 11:30 Dose: 100 mls/hr Vasopressin 40 units/ Sodium (Chloride) 40 mls @ 0.6 mls/hr IV .Q24H NGUYỄN; 0.01 UNITS/MIN PRN Reason: Protocol Last Admin: 02/23/17 15:34 Dose: 0.01 units/min, 0.6 mls/hr Norepinephrine Bitartrate 8 mg (/ Sodium Chloride) 258 mls @ 7.74 mls/hr IV .Q24H PRN; Protocol; 4 MCG/MIN PRN Reason: TITRATE PER MD ORDER Last Admin: 02/23/17 16:13 Dose: 28 mcg/min, 54.18 mls/hr Calcium Gluconate 2,000 mg/ (Sodium Chloride) 270 mls @ 100 mls/hr IVPB ONCE ONE Stop: 02/23/17 19:26 Vancomycin HCl 1 gm/ Sodium (Chloride) 250 mls @ 166.7 mls/hr IVPB STAT STA Stop: 02/23/17 18:22 Physical Exam - Head Exam Head Exam: ATRAUMATIC, NORMAL INSPECTION, NORMOCEPHALIC - Eye Exam Eye Exam: EOMI, Normal appearance, PERRL - ENT Exam ENT Exam: Mucous Membranes Moist, Normal Exam - Respiratory Exam Respiratory Exam: Clear to Auscultation Bilateral, NORMAL BREATHING PATTERN - Cardiovascular Exam Cardiovascular Exam: Tachycardia, REGULAR RHYTHM - GI/Abdominal Exam GI & Abdominal Exam: Normal Bowel Sounds, Soft. absent: Tenderness - Neurological Exam Additional comments: encephalopathic Results - Vital Signs Recent Vital Signs: Last Vital Signs Temp 94.6 F L 02/23/17 16:17 Pulse 130 H 02/23/17 16:17 Resp 11 L 02/23/17 16:17 BP 109/43 L 02/23/17 16:17 Pulse Ox 100 02/23/17 16:00 - Labs Result Diagrams: 02/23/17 13:59 02/23/17 13:59 Labs: Laboratory Results - last 24 hr 02/23/17 02/23/17 02/23/17 08:31 13:59 13:59 WBC 3.7 L RBC 2.12 L Hgb 6.6 L Hct 19.6 L MCV 92.5 D MCH 30.9 MCHC 33.4 RDW 16.3 H Plt Count 87 L D MPV 7.2 Sodium 137 Potassium 4.1 Chloride 99 Carbon Dioxide 25 Anion Gap 18 BUN 80 H Creatinine 2.2 H Est GFR ( Amer) 35 Est GFR (Non-Af Amer) 29 Random Glucose 85 Calcium 5.0 L* D Total Creatine Kinase 322 H CK-MB (Mass) 8.75 H Troponin I, Quant 0.3620 H* Urine Color [place] Urine Clarity Hazy Urine pH 5.0 Ur Specific [place] 1.015 Urine Protein 2+ H Urine Glucose (UA) Normal Urine Ketones Negative Urine Blood 3+ H Urine Nitrate Negative Urine Bilirubin Negative Urine Urobilinogen Normal Ur Leukocyte Esterase 2+ H Urine WBC (Auto) 79 H Urine RBC (Auto) 384 H Urine Bacteria Rare Hyaline Casts 11-20 H Assessment & Plan (1) Septic shock Assessment and Plan: 81 year old male with medical history of AAA s/p stent placement, bilateral iliac aneurysms, chronic kidney disease, hypertension, DM, COPD, and paroxysmal atrial fibrillation brought into ED from intermediate for respiratory distress. p/w septic shock. Neuro: Metabolic encephalopathy Pulm: Acute respiratory failure, intubated on vent. CV: Septic shock, possible cardiogenic shock, obtain stat echo, awaiting read. Patient was previously shown to have Hem: Severe anemia from unknown causes. Thrombocytopenia and factor deficiency. Transfusing 3 packed red blood cells, 3 FFP, 1 unit donor platelets. Renal: Acute renal failure, will monitor urine output, multiple fluid boluses, NS@150 Endo: DM type II, short acting insulin sliding scale for coverage GI: Transaminitis, possible hepatic failure, etiology uncertain, considering hepatic congestion. ID: Septic shock, possible UTI, possible pneumonia. Started on Vanco and Zosyn. DVT proph - holding anticoagulation with current risk of bleeding, SCDs GI proph - Protonix mcpherson for strict I/O's during acute illness Code status - full code Crtical Care Time spent 35 minutes Multi-disciplinary rounds were performed with house staff, nursing, speech therapy, respiratory therapy, pharmacy and nutrition with integrated input from the primary team/attending and other consulting services. The documented time is cumulative and includes review of patient data/exams/labs/chart review and examination of the patient on rounds and throughout the day; time is exclusive of any procedures or teaching time. Status: Acute
[2017-02-23 17:30] LABS: INR 2.9
[2017-02-23 17:34] LABS: BASO % 0.1 % (0.0-2.0); EOS % 0.1 % (0.0-4.0); HEMATOCRIT 22.5 % (35.0-51.0); LYMPH % 1.6 % (20.0-40.0); MEAN CORPUSCULAR HEMOGLOBIN 30.4 pg (27.0-31.0); MEAN CORPUSCULAR HGB CONC 33.6 g/dL (33.0-37.0); MEAN PLATELET VOLUME 6.9 fL (7.2-11.7); MONO # 0.1 K/uL (0.0-0.8); MONO % 3.8 % (0.0-10.0); NRBC % 6.7 % (0.0-2.0); RED CELL DISTRIBUTION WIDTH 16.2 % (11.5-14.5); WHITE BLOOD COUNT 2.6 K/uL (4.8-10.8)
[2017-02-23 17:41] LABS: MEAN CELL VOLUME 90.5 fL (80.0-94.0); PLATELET COUNT 52 K/uL (130-400)
[2017-02-23 18:39] LABS: METAMYELOCYTE 2 % (0-0); NEUTROPHIL 89 % (50-75); NUCLEATED RED BLOOD CELL 6 % (0-0); TOTAL CELLS COUNTED 100
[2017-02-23] MEDS: Phenylephrine 60 MG in Sodium Chloride 0.9% 250 ML IV PRN (20:16)
[2017-02-24 00:13] LABS: ABG ALLEN TEST POS; ABG MECHANICAL RATE 14; ATERIAL BLOOD GAS PEEP 5; DRAW SITE RR
[2017-02-24] MEDS: Sodium Chloride 0.9% 1,000 ML IV SCH ×5 (01:27→21:15)
[2017-02-24] MEDS: Phenylephrine 60 MG in Sodium Chloride 0.9% 250 ML IV PRN (01:58)
[2017-02-24] MEDS: Pantoprazole 80 MG in Sodium Chloride 0.9% 100 ML IVP SCH ×3 (04:57→19:31)
[2017-02-24 05:40] LABS: ABG MECHANICAL RATE 14; ARTERIAL BLOOD HGB O2 SAT 97.2 % (95.0-98.0); ATERIAL BLOOD GAS PEEP 5; CARBOXYHEMOGLOBIN 2.6 % (0.5-1.5); DRAW SITE RB; HHB -0.1 % (0.0-5.0); METHEMOGLOBIN 0.3 % (0.0-3.0)
[2017-02-24 06:10] LABS: BASO % 0.2 % (0.0-2.0); EOS % 1.3 % (0.0-4.0); HEMATOCRIT 18.2 % (35.0-51.0); LYMPH % 0.7 % (20.0-40.0); MEAN CELL VOLUME 90.7 fL (80.0-94.0); MEAN CORPUSCULAR HEMOGLOBIN 30.7 pg (27.0-31.0); MEAN CORPUSCULAR HGB CONC 33.9 g/dL (33.0-37.0); MEAN PLATELET VOLUME 8.4 fL (7.2-11.7); MONO % 2.3 % (0.0-10.0); NRBC % 6.6 % (0.0-2.0)
[2017-02-24 06:21] LABS: PLATELET COUNT 23 K/uL (130-400)
[2017-02-24 06:36] LABS: POTASSIUM 4.1 mmol/L (3.6-5.2)
[2017-02-24 06:37] LABS: BILIRUBIN,TOTAL 1.1 mg/dL (0.2-1.3)
[2017-02-24 06:38] LABS: ALB/GLOB RATIO 1.1 (1.0-2.1); PHOSPHOROUS 7.8 mg/dL (2.5-4.5); TOTAL PROTEIN 3.2 g/dL (6.3-8.3)
[2017-02-24 06:39] LABS: MAGNESIUM 1.5 mg/dL (1.6-2.3)
[2017-02-24 06:51] LABS: CALCIUM 5.1 mg/dl (8.6-10.4)
[2017-02-24] MEDS ORDERED: Albumin Human 25% (12.5 gm/50 ml) IV ONE (07:20)
[2017-02-24] MEDS ORDERED: Magnesium Sulfate 1 gm in D5W 1 GM/100 ML BAG IVPB ONE (07:30)
[2017-02-24 08:20] LABS: VENOUS BLOOD GAS BASE EXCESS 3.9 mmol/L (0.0-2.0); VENOUS BLOOD GAS PCO2 79 mmHg (40-60); VENOUS BLOOD PH 7.24 (7.32-7.43)
[2017-02-24 08:28] LABS: NEUTROPHIL 81 % (50-75); NUCLEATED RED BLOOD CELL 6 % (0-0); TOTAL CELLS COUNTED 100
[2017-02-24 09:24] LABS: FIBRINOGEN 171 mg/dL (200-400); INR 2.5; PARTIAL THROMBOPLASTIN TIME 32 SECONDS (21-34)
[2017-02-24 09:27] LABS: FDP INTERPRETATION POSITIVE (NEGATIVE); FDP QUANTITY >10<40 ug/mL (<10)
[2017-02-24] MEDS: cefTRIAXone 2 GM in Sodium Chloride 0.9% 100 ML IVPB SCH (09:43)
--- NOTE | 2017-02-24 10:33 | CP.PCM.PN ---
Subjective - Date & Time of Evaluation Date of Evaluation: 02/24/17 Time of Evaluation: 13:20 - Subjective Subjective: clinically same Objective - Vital Signs/Intake and Output Vital Signs (last 24 hours): Temp Pulse Resp BP Pulse Ox 97.5 F L 79 14 109/64 88 L 02/24/17 03:00 02/24/17 07:00 02/24/17 07:52 02/24/17 07:52 02/24/17 07:00 Intake and Output: 02/24/17 02/24/17 06:59 18:59 Intake Total 3574.9 1152.14 Output Total 445 295 Balance 3129.9 857.14 - Medications Medications: Current Medications Hydrocortisone Sodium Succinate (Solu-Cortef) 50 mg IV Q6H NGUYỄN Last Admin: 02/24/17 06:31 Dose: 50 mg Fentanyl Citrate 2,500 mcg/ (Sodium Chloride) 250 mls @ 86.18 mls/hr IV .Q2H55M PRN; 10 MCG/KG/HR PRN Reason: Protocol Last Titration: 02/24/17 05:15 Dose: 1.5 mcg/kg/hr, 12.92 mls/hr Ceftriaxone Sodium 2 gm/ (Sodium Chloride) 100 mls @ 100 mls/hr IVPB DAILY NGUYỄN Last Admin: 02/24/17 09:43 Dose: 100 mls/hr Vasopressin 40 units/ Sodium (Chloride) 40 mls @ 0.6 mls/hr IV .Q24H NGUYỄN; 0.01 UNITS/MIN PRN Reason: Protocol Last Admin: 02/24/17 07:52 Dose: 0.04 units/min, 2.4 mls/hr Sodium Chloride (Sodium Chloride 0.9%) 1,000 mls @ 100 mls/hr IV .Q10H NGUYỄN Last Admin: 02/24/17 04:25 Dose: 100 mls/hr Pantoprazole Sodium 80 mg/ (Sodium Chloride) 100 mls @ 10 mls/hr IVP .Q10H NGUYỄN PRN Reason: 8 MG/HR Last Admin: 02/24/17 04:57 Dose: 10 mls/hr Norepinephrine Bitartrate 32 (mg/ Sodium Chloride) 1,000 mls @ 7.5 mls/hr IV .Q24H PRN; Protocol; 4 MCG/MIN PRN Reason: TITRATE PER MD ORDER Phenylephrine HCl 120 mg/ (Sodium Chloride) 500 mls @ 4.99 mls/hr IV .Q24H PRN ; Protocol; 20 MCG/MIN PRN Reason: TITRATE PER MD ORDER - Labs Labs: 02/24/17 06:05 02/24/17 06:05 PT 29.2 SECONDS (9.7-12.2) H 02/24/17 09:02 INR 2.5 02/24/17 09:02 APTT 32 SECONDS (21-34) 02/24/17 09:02 - Constitutional Appears: Well - Head Exam Head Exam: ATRAUMATIC, NORMAL INSPECTION, NORMOCEPHALIC - Eye Exam Eye Exam: EOMI, Normal appearance, PERRL Pupil Exam: NORMAL ACCOMODATION, PERRL - ENT Exam ENT Exam: Mucous Membranes Moist, Normal Exam - Neck Exam Neck Exam: Full ROM, Normal Inspection. absent: Lymphadenopathy - Respiratory Exam Respiratory Exam: Decreased Breath Sounds - Cardiovascular Exam Cardiovascular Exam: REGULAR RHYTHM, +S1, +S2 - GI/Abdominal Exam GI & Abdominal Exam: Soft, Diminished Bowel Sounds - Rectal Exam Rectal Exam: Deferred
--- NOTE | 2017-02-24 10:54 | RAD ---
HISTORY: Hypoxia COMPARISON: 02/23/2017 at 7:57 a.m. FINDINGS: The endotracheal tube terminates 2.5 cm proximal to the jordyn. The nasogastric tube terminates in the stomach. The left subclavian line terminates in the SVC. LUNGS: There is ill-defined airspace disease in the left lower lobe. The right lung is clear. PLEURA: No significant pleural effusion identified, no pneumothorax apparent. CARDIOVASCULAR: Normal. OSSEOUS STRUCTURES: No significant abnormalities. VISUALIZED UPPER ABDOMEN: Normal. OTHER FINDINGS: None. IMPRESSION: Suspect left basilar atelectasis. Superimposed pneumonia cannot be excluded. Stable position of line and tubes.
[2017-02-24] MEDS ORDERED: Meropenem 1 GM in Sodium Chloride 0.9% 100 ML IVPB ONE (11:09)
--- NOTE | 2017-02-24 11:13 | RAD ---
PROCEDURE: CHEST RADIOGRAPH, 1 VIEW HISTORY: intubated patient COMPARISON: 02/23/2017. FINDINGS: The endotracheal tube is stable in position in the mid trachea. The nasogastric tube terminates in the stomach. The left subclavian line terminates in the SVC. LUNGS: The right lung is clear. There is haziness in the left lung. PLEURA: No pneumothorax or pleural fluid seen. CARDIOVASCULAR: Normal. OSSEOUS STRUCTURES: No significant abnormalities. VISUALIZED UPPER ABDOMEN: Normal. OTHER FINDINGS: None. IMPRESSION: Stable position of line and tubes. Haziness in the left lung could represent layering pleural effusion. Follow-up PA and lateral views are advised.
[2017-02-24] MEDS ORDERED: Piperacill/Tazo 3.375gm in Dex 3.375 GM/50 ML BAG IVPB SCH (11:15)
[2017-02-24] MEDS: Micafungin 100 MG in Sodium Chloride 0.9% 100 ML IV SCH (11:20)
--- NOTE | 2017-02-24 11:22 | CP.PCM.PN ---
Subjective - Date & Time of Evaluation Date of Evaluation: 02/24/17 Time of Evaluation: 09:00 - Subjective Subjective: PGY2 Medicine Note - Dr. Lomax's service: Patient seen and examined at bedside. Patient intubated and sedated and on 3 pressors. Patient bleeding from multiple sites. Patient is pancytopenic. Replacing blood products and giving hydrocortisone 50 Q6. Plan to get into contact with next of kin as patient's prognosis is very poor. Objective - Vital Signs/Intake and Output Vital Signs (last 24 hours): Temp Pulse Resp BP Pulse Ox 97.4 F L 80 15 101/56 L 88 L 02/24/17 11:01 02/24/17 11:01 02/24/17 11:01 02/24/17 11:01 02/24/17 07:00 Intake and Output: 02/24/17 02/24/17 06:59 18:59 Intake Total 3574.9 1152.14 Output Total 445 335 Balance 3129.9 817.14 - Medications Medications: Current Medications Hydrocortisone Sodium Succinate (Solu-Cortef) 50 mg IV Q6H NGUYỄN Last Admin: 02/24/17 06:31 Dose: 50 mg Fentanyl Citrate 2,500 mcg/ (Sodium Chloride) 250 mls @ 86.18 mls/hr IV .Q2H55M PRN; 10 MCG/KG/HR PRN Reason: Protocol Last Titration: 02/24/17 05:15 Dose: 1.5 mcg/kg/hr, 12.92 mls/hr Vasopressin 40 units/ Sodium (Chloride) 40 mls @ 0.6 mls/hr IV .Q24H NGUYỄN; 0.01 UNITS/MIN PRN Reason: Protocol Last Admin: 02/24/17 07:52 Dose: 0.04 units/min, 2.4 mls/hr Sodium Chloride (Sodium Chloride 0.9%) 1,000 mls @ 100 mls/hr IV .Q10H NGUYỄN Last Admin: 02/24/17 04:25 Dose: 100 mls/hr Pantoprazole Sodium 80 mg/ (Sodium Chloride) 100 mls @ 10 mls/hr IVP .Q10H NGUYỄN PRN Reason: 8 MG/HR Last Admin: 02/24/17 04:57 Dose: 10 mls/hr Norepinephrine Bitartrate 32 (mg/ Sodium Chloride) 1,000 mls @ 7.5 mls/hr IV .Q24H PRN; Protocol; 4 MCG/MIN PRN Reason: TITRATE PER MD ORDER Phenylephrine HCl 120 mg/ (Sodium Chloride) 500 mls @ 4.99 mls/hr IV .Q24H PRN ; Protocol; 20 MCG/MIN PRN Reason: TITRATE PER MD ORDER Calcium Gluconate 2,000 mg/ (Sodium Chloride) 270 mls @ 125 mls/hr IVPB ONCE ONE Stop: 02/24/17 12:47 Gentamicin Sulfate 120 mg/ (Sodium Chloride) 103 mls @ 100 mls/hr IVPB Q24H NGUYỄN Meropenem 1 gm/ Sodium (Chloride) 100 mls @ 100 mls/hr IVPB ONCE ONE Stop: 02/24/17 12:08 Meropenem 500 mg/ Sodium (Chloride) 100 mls @ 100 mls/hr IVPB Q8 NGUYỄN Micafungin Sodium 100 mg/ (Sodium Chloride) 100 mls @ 100 mls/hr IV Q24H NGUYỄN - Labs Labs: 02/24/17 06:05 02/24/17 06:05 PT 29.2 SECONDS (9.7-12.2) H 02/24/17 09:02 INR 2.5 02/24/17 09:02 APTT 32 SECONDS (21-34) 02/24/17 09:02 - Constitutional Appears: Toxic, Chronically Ill - Head Exam Head Exam: ATRAUMATIC - Eye Exam Eye Exam: EOMI - ENT Exam Additional comments: intubated - Respiratory Exam Respiratory Exam: Rhonchi, NORMAL BREATHING PATTERN. absent: Accessory Muscle Use - Cardiovascular Exam Cardiovascular Exam: REGULAR RHYTHM, +S1, +S2. absent: Gallop, Rubs, Murmur - GI/Abdominal Exam GI & Abdominal Exam: Soft, Normal Bowel Sounds - Extremities Exam Extremities Exam: absent: Pedal Edema - Neurological Exam Neurological Exam: absent: Alert, Awake, Oriented x3 - Skin Additional comments: bleeding from OG tube, bleeding from femoral line Assessment and Plan - Assessment and Plan (Free Text) Assessment: Septic Shock On 3 pressors Hydrocortisone 50mg IV Q6 for possible adrenal insufficiency INR elevated at 2.5 --> Vitamin K 10mg IV one dose F/U INR in AM Gentamicin 120mg IVPB Q24H Meropenem 1gm IVPB Q8 Micafungin 100mg IV Q24H F/U blood culture urine culture negative Respiratory Distress possibly secondary to sepsis/pneumonia vs. [place] Intubated - FiO2 100, PEEP 5, RR 14, Tidal Volume 450 VBG: pH 7.33, pO2 25, pCO2 53, HCO3 24.1, Lactate 11.6 No leukocytosis, afebrile Transferred to ICU for management Ceftriaxone 2 gm IVPB Q24 started for possible pneumonia f/u Blood cx Sedated on Fentanyl IV Troponin I elevated 0.1600. F/u repeat trops f/u Echocardiogram report CXR: 1. Endotracheal tube terminates 1.1 cm proximal to the jordyn. 2. Suspect left lower lobe atelectasis/ pneumonia and small pleural effusion. Follow-up to resolution is advised. Chest/Abd/Pelvis CT w/o IV contrast: Endotracheal tube terminates, approximately 9 mm. Nasogastric tube extends expected location of the stomach. The unenhanced mediastinal and hilar vascular structures appear grossly unremarkable. Mild cardiomegaly. Dense coronary artery and valvular calcifications. Small pericardial effusion. 13 mm prevascular lymph node. Inferior right upper lobe consolidation. [id number]-right dependent consolidations. No significant pleural effusion. No visible pneumothorax. Small fluid within the distal esophagus consistent with gastroesophageal reflux. Ectatic thoracic aorta with dense atherosclerotic calcifications. 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 This involves the supra- and infrarenal abdominal aorta. Evidence of previous repair. 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 15 mm hepatic dome low-density lesion and 15 mm medial right inferior hepatic lobe low-density lesion, possibly cysts. 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 Marked renal cortical thinning/ atrophy. Right-sided hydroureter nephrosis. Unremarkable unenhanced appearance of the left kidney. Interval development of mesenteric and peripancreatic inflammatory changes which extend into the lower abdomen. Fatty atrophy of the pancreas. The noncontrast spleen, adrenal glands, and gallbladder appear unremarkable. The stomach is nondistended. Lack of oral contrast limits evaluation for bowel pathology. The bowel loops appear within normal limits of caliber without evidence of intestinal obstruction. Diverticulosis without CT evidence of acute diverticulitis. There is no definite free air. Boyce catheter within a decompressed urinary bladder. Right femoral venous catheter. Soft tissue edema. Osseous demineralization. Multilevel degenerative changes. Severe scoliosis. Interval development of mesenteric and peripancreatic inflammatory changes which extend into the lower abdomen. Correlate clinically. Recommend correlation with amylase and lipase to exclude possibility of pancreatitis. Fatty atrophy of the pancreas. Diverticulosis without CT evidence of acute diverticulitis. Hypotension Started on Norepinephrine drip, Phenylephrine drip, and Dopamine drip. Monitor Pancytopenia - Severe Macrocytic Anemia Hemoglobin/Hematocrit 6.2/18.2 s/p 3 units pRBCs per nursing Transfusing 2 units pRBCs today Evaluated for possible abdominal bleed- no evidence of bleed on CT study Pt visibly bleeding on suction, from mouth and urine Urinalysis: blood 3+, RBC 384 Type & Screen/Type & Cross Monitor - Thrombocytopenia Platelets of 23 s/p 3 units of platelets and 4 units FFP giving platelets today with 4 untis FFP Monitor - Leukopenia Transfuse packed leukocytes Dr. Lomax plans on calling patient's daughter to discuss patient's very poor prognosis Transaminitis likely shock liver AST/ALT: 2385/2096 worsening Monitor Prophylaxis blanket warmer
[2017-02-24] MEDS ORDERED: Phytonadione 10 mg/ml Inj (Adult) IV STA ×2 (11:24→12:47)
[2017-02-24] MEDS: NOREPINEPHRINE IV PRN (11:39)
[2017-02-24] MEDS: SODIUM CHLORIDE 0.9% IV PRN ×2 (11:39→16:52)
--- NOTE | 2017-02-24 14:02 | CARD ---
APPROVED REPORT EXAM: Two-dimensional and M-mode echocardiogram with Doppler and color Doppler. Other Information Quality : Technically LimitedRhythm : INDICATION CARDIOGENIC SHOCK M-Mode DIMENSIONS Left Atrium (MM)3.20 (2.5-4.0cm)Aortic Root3.53 (2.2-3.7cm) Aortic Cusp Exc.1.29 (1.5-2.0cm) Mitral Valve E/A ratio0.0 TDI E/Lateral E'0.0E/Medial E'0.0 Tricuspid Valve TR Peak [id number] Peak Gr.[id number] LEFT VENTRICLE The left ventricle is normal size. There is normal left ventricular wall thickness. The left ventricular function is normal. The left ventricular ejection fraction is within the normal range. There is normal LV segmental wall motion. RIGHT VENTRICLE The right ventricle is normal size. There is normal right ventricular wall thickness. The right ventricular systolic function is normal. ATRIA The left atrium size is normal. The right atrium size is normal. The interatrial septum is intact with no evidence for an atrial septal defect. AORTIC VALVE The aortic valve is normal in structure. No aortic regurgitation is present. There is no aortic valvular stenosis. There is no aortic valvular vegetation. MITRAL VALVE The mitral valve is normal in structure. There is no evidence of mitral valve prolapse. There is no mitral valve stenosis. There is no mitral valve regurgitation noted. TRICUSPID VALVE The tricuspid valve is normal in structure. There is trace tricuspid regurgitation. Right ventricular systolic pressure is estimated at less than 30 mmHg. There is no pulmonary hypertension. PULMONIC VALVE The pulmonic valve is not well visualized. There is no pulmonic valvular regurgitation. There is no pulmonic valvular stenosis. GREAT VESSELS The aortic root is normal in size. PERICARDIAL EFFUSION There is no significant pericardial effusion. <Conclusion> The left ventricular function is normal. The left ventricular ejection fraction is within the normal range. No aortic regurgitation is present. There is no mitral valve regurgitation noted. There is trace tricuspid regurgitation. There is no pulmonary hypertension. There is no pulmonic valvular regurgitation.
--- NOTE | 2017-02-24 15:04 | CP.CCUPN ---
CCU Objective - Vital Signs / Intake & Output Vital Signs (Last 4 hours): Vital Signs Temp Pulse Resp BP Pulse Ox 02/24/17 13:10 97.9 F 123 H 14 107/63 02/24/17 12:00 98 F 144 H 13 02/24/17 11:53 143 H 14 92/71 L 02/24/17 11:50 128 H 14 02/24/17 11:49 131 H 14 62/43 L 02/24/17 11:40 132 H 14 02/24/17 11:39 101/56 L 02/24/17 11:35 137 H 13 145/113 H 02/24/17 11:31 97.5 F L 135 H 14 135/113 H 02/24/17 11:30 143 H 15 02/24/17 11:20 144 H 14 02/24/17 11:19 143 H 12 166/139 H 02/24/17 11:10 79 15 75 L 02/24/17 11:03 79 15 101/56 L 77 L Intake and Output (Last 8hrs): Intake & Output 02/24/17 02/24/17 02/24/17 06:59 14:59 22:59 Intake Total 1901.9 2850.34 Output Total 245 462 Balance 1656.9 2388.34 Intake: IV 578.6 79.04 Intake, IV Amount 1323.3 1793.3 Left Port-A-Cath 661 1014 Right Distal Port Femoral 300.0 412.8 Right Femoral 282.5 262.5 Right Medial Port Femoral 69.0 84.8 Right Proximal Port 10.8 19.2 Femoral Blood Product 278 Apheresis Rbc Cp2d As3 Lr 278 1st Unit [id number] Other 700 Output: Urine 245 462 Urethral (Mcpherson) 245 462 - Medications Active Medications: Active Medications Generic Name Dose Route Start Last Admin Trade Name Freq PRN Reason Stop Dose Admin Hydrocortisone Sodium Succinate 50 mg 02/24/17 00:00 02/24/17 13:05 Solu-Cortef IV 50 mg Q6H NGUYỄN Administration Fentanyl Citrate 2,500 mcg/ 250 mls @ 86.18 mls/hr 02/23/17 07:30 02/24/17 12 :57 Sodium Chloride IV 1.5 mcg/kg/hr .Q2H55M PRN 12.92 mls/hr Protocol Administration 10 MCG/KG/HR Vasopressin 40 units/ Sodium 40 mls @ 0.6 mls/hr 02/23/17 15:30 02/24/17 07: 52 Chloride IV 0.04 units/min .Q24H NGUYỄN 2.4 mls/hr Protocol Administration 0.01 UNITS/MIN Sodium Chloride 1,000 mls @ 100 mls/hr 02/24/17 01:45 02/24/17 11:45 Sodium Chloride 0.9% IV Not Given .Q10H NGUYỄN Pantoprazole Sodium 80 mg/ 100 mls @ 10 mls/hr 02/24/17 04:15 02/24/17 04:57 Sodium Chloride IVP 10 mls/hr .Q10H NGUYỄN Administration 8 MG/HR Norepinephrine Bitartrate 32 1,000 mls @ 7.5 mls/hr 02/24/17 09:48 02/24/17 11:39 mg/ Sodium Chloride IV 30.02 mcg/min .Q24H PRN 56.3 mls/hr TITRATE PER MD ORDER Administration Protocol 4 MCG/MIN Phenylephrine HCl 120 mg/ 500 mls @ 4.99 mls/hr 02/24/17 09:52 Sodium Chloride IV .Q24H PRN TITRATE PER MD ORDER Protocol 20 MCG/MIN Gentamicin Sulfate 120 mg/ 103 mls @ 100 mls/hr 02/24/17 11:15 02/24/17 12:17 Sodium Chloride IVPB 100 mls/hr Q24H NGUYỄN Administration Meropenem 500 mg/ Sodium 100 mls @ 100 mls/hr 02/24/17 20:00 Chloride IVPB Q8 NGUYỄN Micafungin Sodium 100 mg/ 100 mls @ 100 mls/hr 02/24/17 11:15 02/24/17 11:20 Sodium Chloride IV 100 mls/hr Q24H NGUYỄN Administration Vancomycin HCl 1,000 mg/ 250 mls @ 166.6 mls/hr 02/24/17 15:00 Sodium Chloride IVPB Q12H NGUYỄN - Patient Studies Lab Studies: Lab Studies 02/24/17 02/24/17 02/24/17 Range/Units 13:33 09:02 08:12 WBC (4.8-10.8) K/uL RBC (4.40-5.90) Mil/uL Hgb (12.0-18.0) g/dL Hct (35.0-51.0) % MCV (80.0-94.0) fL MCH (27.0-31.0) pg MCHC (33.0-37.0) g/dL RDW (11.5-14.5) % Plt Count (130-400) K/uL MPV (7.2-11.7) fL Neut % (Auto) (50.0-75.0) % Lymph % (Auto) (20.0-40.0) % [place] % (Auto) (0.0-10.0) % Eos % (Auto) (0.0-4.0) % Baso % (Auto) (0.0-2.0) % Neut # (1.8-7.0) K/uL Lymph # (1.0-4.3) K/uL [place] # (0.0-0.8) K/uL Eos # (0.0-0.7) K/uL Baso # (0.0-0.2) K/uL Neutrophils % (Manual) (50-75) % Band Neutrophils % (0-2) % Lymphocytes % (Manual) (20-40) % Monocytes % (Manual) (0-10) % Metamyelocytes % (0-0) % Nucleated RBC % (0-0) % Toxic Granulation Platelet Estimate (NORMAL) Polychromasia Hypochromasia (manual) Poikilocytosis (manual Basophilic Stippling Anisocytosis (manual) Macrocytosis (manual) Isac Cells PT 29.2 H (9.7-12.2) SECONDS INR 2.5 APTT 32 (21-34) SECONDS Fibrinogen 171 L (200-400) mg/dL Fibrin Degrad Products Positive H (NEGATIVE) Fibrin Degrad Prod, Qt >10<40 H (<10) ug/mL Puncture Site pCO2 (35-45) mm/Hg pO2 19 L (80-100) mm/Hg HCO3 (21-28) mmol/L ABG pH (7.35-7.45) ABG Total CO2 (22-28) mmol/L ABG O2 Saturation (95-98) % ABG Base Excess (-2.0-3.0) mmol/L ABG Hemoglobin (11.7-17.4) g/dL ABG Carboxyhemoglobin (0.5-1.5) % POC ABG HHb (Measured) (0.0-5.0) % ABG Methemoglobin (0.0-3.0) % Hoang Test ABG Potassium (3.6-5.2) mmol/L VBG pH 7.24 L (7.32-7.43) VBG pCO2 79 H* (40-60) mmHg VBG HCO3 25.9 mmol/L VBG Total CO2 36.3 H (22-28) mmol/L VBG O2 Sat (Calc) 27.5 L (40-65) % VBG Base Excess 3.9 H (0.0-2.0) mmol/L VBG Potassium 4.3 (3.6-5.2) mmol/L A-a O2 Difference mm/Hg Respiratory Index Hgb O2 Saturation (95.0-98.0) % Sodium 141.0 (132-148) mmol/l Chloride 104.0 (98-107) mmol/L Glucose 136 H (75-110) mg/dl Lactate 3.1 H (0.7-2.1) mmol/L Mechanical Rate FiO2 70.0 % Tidal Volume PEEP 5 Crit Value Called To Dr bunch Crit Value Called By Rhonda carballo career discovery teacher Crit Value Read Back Y Blood Gas Notified Time 820 Potassium (3.6-5.2) mmol/L Carbon Dioxide (22-30) mmol/L Anion Gap (10-20) BUN (9-20) mg/dL Creatinine (0.8-1.5) MG/DL Est GFR ( Amer) Est GFR (Non-Af Amer) POC Glucose (mg/dL) (65-110) mg/dL Random Glucose (75-110) mg/dL Lactic Acid 3.7 H (0.7-2.1) mmol/L Calcium (8.6-10.4) mg/dl Phosphorus (2.5-4.5) mg/dL Magnesium (1.6-2.3) mg/dL Total Bilirubin (0.2-1.3) mg/dL AST (17-59) U/L ALT (21-72) U/L Alkaline Phosphatase (38-126) U/L Total Creatine Kinase (55-170) U/L CK-MB (Mass) (0.0-3.38) ng/mL Troponin I, Quant (0.00-0.120) ng/mL Total Protein (6.3-8.3) g/dL Albumin (3.5-5.0) g/dL Globulin (2.2-3.9) gm/dL Albumin/Globulin Ratio (1.0-2.1) Arterial Blood Potassium (3.6-5.2) mmol/L Venous Blood Potassium 4.3 (3.6-5.2) mmol/L 02/24/17 02/24/17 02/24/17 Range/Units 06:05 06:05 05:31 WBC 2.0 L* (4.8-10.8) K/uL RBC 2.00 L (4.40-5.90) Mil/uL Hgb 6.2 L* (12.0-18.0) g/dL Hct 18.2 L (35.0-51.0) % MCV 90.7 (80.0-94.0) fL MCH 30.7 (27.0-31.0) pg MCHC 33.9 (33.0-37.0) g/dL RDW 16.0 H (11.5-14.5) % Plt Count 23 L* D (130-400) K/uL MPV 8.4 (7.2-11.7) fL Neut % (Auto) 95.5 H (50.0-75.0) % Lymph % (Auto) 0.7 L (20.0-40.0) % [place] % (Auto) 2.3 (0.0-10.0) % Eos % (Auto) 1.3 (0.0-4.0) % Baso % (Auto) 0.2 (0.0-2.0) % Neut # 1.9 (1.8-7.0) K/uL Lymph # 0.0 L (1.0-4.3) K/uL [place] # 0.0 (0.0-0.8) K/uL Eos # 0.0 (0.0-0.7) K/uL Baso # 0.0 (0.0-0.2) K/uL Neutrophils % (Manual) 81 H (50-75) % Band Neutrophils % 13 H* (0-2) % Lymphocytes % (Manual) 4 L (20-40) % Monocytes % (Manual) 2 (0-10) % Metamyelocytes % (0-0) % Nucleated RBC % 6 H (0-0) % Toxic Granulation Present Platelet Estimate Markedly decreased L (NORMAL) Polychromasia Slight Hypochromasia (manual) Slight Poikilocytosis (manual Slight Basophilic Stippling Moderate Anisocytosis (manual) Slight Macrocytosis (manual) Hamilton Cells Slight PT (9.7-12.2) SECONDS INR APTT (21-34) SECONDS Fibrinogen (200-400) mg/dL Fibrin Degrad Products (NEGATIVE) Fibrin Degrad Prod, Qt (<10) ug/mL Puncture Site pCO2 (35-45) mm/Hg pO2 (80-100) mm/Hg HCO3 (21-28) mmol/L ABG pH (7.35-7.45) ABG Total CO2 (22-28) mmol/L ABG O2 Saturation (95-98) % ABG Base Excess (-2.0-3.0) mmol/L ABG Hemoglobin (11.7-17.4) g/dL ABG Carboxyhemoglobin (0.5-1.5) % POC ABG HHb (Measured) (0.0-5.0) % ABG Methemoglobin (0.0-3.0) % Hoang Test ABG Potassium (3.6-5.2) mmol/L VBG pH (7.32-7.43) VBG pCO2 (40-60) mmHg VBG HCO3 mmol/L VBG Total CO2 (22-28) mmol/L VBG O2 Sat (Calc) (40-65) % VBG Base Excess (0.0-2.0) mmol/L VBG Potassium (3.6-5.2) mmol/L A-a O2 Difference mm/Hg Respiratory Index Hgb O2 Saturation (95.0-98.0) % Sodium 136 (132-148) mmol/l Chloride 98 (98-107) mmol/L Glucose (75-110) mg/dl Lactate (0.7-2.1) mmol/L Mechanical Rate FiO2 % Tidal Volume PEEP Crit Value Called To Crit Value Called By Crit Value Read Back Blood Gas Notified Time Potassium 4.1 (3.6-5.2) mmol/L Carbon Dioxide 30 (22-30) mmol/L Anion Gap 13 (10-20) BUN 90 H (9-20) mg/dL Creatinine 2.6 H (0.8-1.5) MG/DL Est GFR ( Amer) 29 Est GFR (Non-Af Amer) 24 POC Glucose (mg/dL) 185 H (65-110) mg/dL Random Glucose 136 H (75-110) mg/dL Lactic Acid (0.7-2.1) mmol/L Calcium 5.1 L* (8.6-10.4) mg/dl Phosphorus 7.8 H (2.5-4.5) mg/dL Magnesium 1.5 L (1.6-2.3) mg/dL Total Bilirubin 1.1 (0.2-1.3) mg/dL AST 2385 H (17-59) U/L ALT 2096 H (21-72) U/L Alkaline Phosphatase 38 (38-126) U/L Total Creatine Kinase (55-170) U/L CK-MB (Mass) (0.0-3.38) ng/mL Troponin I, Quant (0.00-0.120) ng/mL Total Protein 3.2 L (6.3-8.3) g/dL Albumin 1.7 L D (3.5-5.0) g/dL Globulin 1.5 L (2.2-3.9) gm/dL Albumin/Globulin Ratio 1.1 (1.0-2.1) Arterial Blood Potassium (3.6-5.2) mmol/L Venous Blood Potassium (3.6-5.2) mmol/L 02/24/17 02/23/17 02/23/17 Range/Units 04:45 23:50 17:31 WBC 2.6 L (4.8-10.8) K/uL RBC 2.48 L (4.40-5.90) Mil/uL Hgb 7.5 L (12.0-18.0) g/dL Hct 22.5 L (35.0-51.0) % MCV 90.5 D (80.0-94.0) fL MCH 30.4 (27.0-31.0) pg MCHC 33.6 (33.0-37.0) g/dL RDW 16.2 H (11.5-14.5) % Plt Count 52 L D (130-400) K/uL MPV 6.9 L (7.2-11.7) fL Neut % (Auto) 94.4 H (50.0-75.0) % Lymph % (Auto) 1.6 L (20.0-40.0) % [place] % (Auto) 3.8 (0.0-10.0) % Eos % (Auto) 0.1 (0.0-4.0) % Baso % (Auto) 0.1 (0.0-2.0) % Neut # 2.5 (1.8-7.0) K/uL Lymph # 0.0 L (1.0-4.3) K/uL [place] # 0.1 (0.0-0.8) K/uL Eos # 0.0 (0.0-0.7) K/uL Baso # 0.0 (0.0-0.2) K/uL Neutrophils % (Manual) 89 H (50-75) % Band Neutrophils % 6 H (0-2) % Lymphocytes % (Manual) 2 L (20-40) % Monocytes % (Manual) 1 (0-10) % Metamyelocytes % 2 H (0-0) % Nucleated RBC % 6 H (0-0) % Toxic Granulation Platelet Estimate Decreased L (NORMAL) Polychromasia Slight Hypochromasia (manual) Poikilocytosis (manual Slight Basophilic Stippling Slight Anisocytosis (manual) Slight Macrocytosis (manual) Slight Hamilton Cells PT (9.7-12.2) SECONDS INR APTT (21-34) SECONDS Fibrinogen (200-400) mg/dL Fibrin Degrad Products (NEGATIVE) Fibrin Degrad Prod, Qt (<10) ug/mL Puncture Site Rb Rr pCO2 24 L 21 L (35-45) mm/Hg pO2 78 L 126 H (80-100) mm/Hg HCO3 26.4 20.1 L (21-28) mmol/L ABG pH 7.61 H* 7.47 H (7.35-7.45) ABG Total CO2 24.8 15.9 L (22-28) mmol/L ABG O2 Saturation 100.1 H (95-98) % ABG Base Excess 1.8 -6.2 L (-2.0-3.0) mmol/L ABG Hemoglobin 3.1 L (11.7-17.4) g/dL ABG Carboxyhemoglobin 2.6 H (0.5-1.5) % POC ABG HHb (Measured) -0.1 L (0.0-5.0) % ABG Methemoglobin 0.3 (0.0-3.0) % Hoang Test Na Pos ABG Potassium 4.5 (3.6-5.2) mmol/L VBG pH (7.32-7.43) VBG pCO2 (40-60) mmHg VBG HCO3 mmol/L VBG Total CO2 (22-28) mmol/L VBG O2 Sat (Calc) (40-65) % VBG Base Excess (0.0-2.0) mmol/L VBG Potassium (3.6-5.2) mmol/L A-a O2 Difference 391.0 561.0 mm/Hg Respiratory Index 5.0 4.5 Hgb O2 Saturation 97.2 (95.0-98.0) % Sodium 145.0 (132-148) mmol/l Chloride 123.0 H (98-107) mmol/L Glucose 61 L (75-110) mg/dl Lactate 3.4 H (0.7-2.1) mmol/L Mechanical Rate 14 14 FiO2 70.0 100.0 % Tidal Volume 450 450 PEEP 5 5 Crit Value Called To Nany white/handicapper harness racing Crit Value Called By Rashaun fraser/rt Crit Value Read Back Y Blood Gas Notified Time 540 Potassium (3.6-5.2) mmol/L Carbon Dioxide (22-30) mmol/L Anion Gap (10-20) BUN (9-20) mg/dL Creatinine (0.8-1.5) MG/DL Est GFR ( Amer) Est GFR (Non-Af Amer) POC Glucose (mg/dL) (65-110) mg/dL Random Glucose (75-110) mg/dL Lactic Acid (0.7-2.1) mmol/L Calcium (8.6-10.4) mg/dl Phosphorus (2.5-4.5) mg/dL Magnesium (1.6-2.3) mg/dL Total Bilirubin (0.2-1.3) mg/dL AST (17-59) U/L ALT (21-72) U/L Alkaline Phosphatase (38-126) U/L Total Creatine Kinase (55-170) U/L CK-MB (Mass) (0.0-3.38) ng/mL Troponin I, Quant (0.00-0.120) ng/mL Total Protein (6.3-8.3) g/dL Albumin (3.5-5.0) g/dL Globulin (2.2-3.9) gm/dL Albumin/Globulin Ratio (1.0-2.1) Arterial Blood Potassium 4.5 (3.6-5.2) mmol/L Venous Blood Potassium (3.6-5.2) mmol/L 02/23/17 02/23/17 Range/Units 17:10 13:59 WBC (4.8-10.8) K/uL RBC (4.40-5.90) Mil/uL Hgb (12.0-18.0) g/dL Hct (35.0-51.0) % MCV (80.0-94.0) fL MCH (27.0-31.0) pg MCHC (33.0-37.0) g/dL RDW (11.5-14.5) % Plt Count (130-400) K/uL MPV (7.2-11.7) fL Neut % (Auto) (50.0-75.0) % Lymph % (Auto) (20.0-40.0) % [place] % (Auto) (0.0-10.0) % Eos % (Auto) (0.0-4.0) % Baso % (Auto) (0.0-2.0) % Neut # (1.8-7.0) K/uL Lymph # (1.0-4.3) K/uL [place] # (0.0-0.8) K/uL Eos # (0.0-0.7) K/uL Baso # (0.0-0.2) K/uL Neutrophils % (Manual) (50-75) % Band Neutrophils % (0-2) % Lymphocytes % (Manual) (20-40) % Monocytes % (Manual) (0-10) % Metamyelocytes % (0-0) % Nucleated RBC % (0-0) % Toxic Granulation Platelet Estimate (NORMAL) Polychromasia Hypochromasia (manual) Poikilocytosis (manual Basophilic Stippling Anisocytosis (manual) Macrocytosis (manual) Hamilton Cells PT 33.4 H* (9.7-12.2) SECONDS INR 2.9 APTT (21-34) SECONDS Fibrinogen (200-400) mg/dL Fibrin Degrad Products (NEGATIVE) Fibrin Degrad Prod, Qt (<10) ug/mL Puncture Site pCO2 (35-45) mm/Hg pO2 (80-100) mm/Hg HCO3 (21-28) mmol/L ABG pH (7.35-7.45) ABG Total CO2 (22-28) mmol/L ABG O2 Saturation (95-98) % ABG Base Excess (-2.0-3.0) mmol/L ABG Hemoglobin (11.7-17.4) g/dL ABG Carboxyhemoglobin (0.5-1.5) % POC ABG HHb (Measured) (0.0-5.0) % ABG Methemoglobin (0.0-3.0) % Hoang Test ABG Potassium (3.6-5.2) mmol/L VBG pH (7.32-7.43) VBG pCO2 (40-60) mmHg VBG HCO3 mmol/L VBG Total CO2 (22-28) mmol/L VBG O2 Sat (Calc) (40-65) % VBG Base Excess (0.0-2.0) mmol/L VBG Potassium (3.6-5.2) mmol/L A-a O2 Difference mm/Hg Respiratory Index Hgb O2 Saturation (95.0-98.0) % Sodium (132-148) mmol/l Chloride (98-107) mmol/L Glucose (75-110) mg/dl Lactate (0.7-2.1) mmol/L Mechanical Rate FiO2 % Tidal Volume PEEP Crit Value Called To Crit Value Called By Crit Value Read Back Blood Gas Notified Time Potassium (3.6-5.2) mmol/L Carbon Dioxide 25 (22-30) mmol/L Anion Gap 18 (10-20) BUN 80 H (9-20) mg/dL Creatinine 2.2 H (0.8-1.5) MG/DL Est GFR ( Amer) 35 Est GFR (Non-Af Amer) 29 POC Glucose (mg/dL) (65-110) mg/dL Random Glucose 85 (75-110) mg/dL Lactic Acid (0.7-2.1) mmol/L Calcium 5.0 L* D (8.6-10.4) mg/dl Phosphorus (2.5-4.5) mg/dL Magnesium (1.6-2.3) mg/dL Total Bilirubin (0.2-1.3) mg/dL AST (17-59) U/L ALT (21-72) U/L Alkaline Phosphatase (38-126) U/L Total Creatine Kinase 322 H (55-170) U/L CK-MB (Mass) 8.75 H (0.0-3.38) ng/mL Troponin I, Quant 0.3620 H* (0.00-0.120) ng/mL Total Protein (6.3-8.3) g/dL Albumin (3.5-5.0) g/dL Globulin (2.2-3.9) gm/dL Albumin/Globulin Ratio (1.0-2.1) Arterial Blood Potassium (3.6-5.2) mmol/L Venous Blood Potassium (3.6-5.2) mmol/L Laboratory Results - last 24 hr 02/23/17 02/23/17 02/23/17 13:59 17:10 17:31 WBC 2.6 L RBC 2.48 L Hgb 7.5 L Hct 22.5 L MCV 90.5 D MCH 30.4 MCHC 33.6 RDW 16.2 H Plt Count 52 L D MPV 6.9 L Neut % (Auto) 94.4 H Lymph % (Auto) 1.6 L [place] % (Auto) 3.8 Eos % (Auto) 0.1 Baso % (Auto) 0.1 Neut # 2.5 Lymph # 0.0 L [place] # 0.1 Eos # 0.0 Baso # 0.0 Neutrophils % (Manual) 89 H Band Neutrophils % 6 H Lymphocytes % (Manual) 2 L Monocytes % (Manual) 1 Metamyelocytes % 2 H Nucleated RBC % 6 H Toxic Granulation Platelet Estimate Decreased L Polychromasia Slight Hypochromasia (manual) Poikilocytosis (manual Slight Basophilic Stippling Slight Anisocytosis (manual) Slight Macrocytosis (manual) Slight Isac Cells PT 33.4 H* INR 2.9 APTT Fibrinogen Fibrin Degrad Products Fibrin Degrad Prod, Qt Puncture Site pCO2 pO2 HCO3 ABG pH ABG Total CO2 ABG O2 Saturation ABG Base Excess ABG Hemoglobin ABG Carboxyhemoglobin POC ABG HHb (Measured) ABG Methemoglobin Hoang Test ABG Potassium VBG pH VBG pCO2 VBG HCO3 VBG Total CO2 VBG O2 Sat (Calc) VBG Base Excess VBG Potassium A-a O2 Difference Respiratory Index Hgb O2 Saturation Sodium Chloride Glucose Lactate Mechanical Rate FiO2 Tidal Volume PEEP Crit Value Called To Crit Value Called By Crit Value Read Back Blood Gas Notified Time Potassium Carbon Dioxide 25 Anion Gap 18 BUN 80 H Creatinine 2.2 H Est GFR ( Amer) 35 Est GFR (Non-Af Amer) 29 POC Glucose (mg/dL) Random Glucose 85 Lactic Acid Calcium 5.0 L* D Phosphorus Magnesium Total Bilirubin AST ALT Alkaline Phosphatase Total Creatine Kinase 322 H CK-MB (Mass) 8.75 H Troponin I, Quant 0.3620 H* Total Protein Albumin Globulin Albumin/Globulin Ratio Arterial Blood Potassium Venous Blood Potassium 02/23/17 02/24/17 02/24/17 23:50 04:45 05:31 WBC RBC Hgb Hct MCV MCH MCHC RDW Plt Count MPV Neut % (Auto) Lymph % (Auto) [place] % (Auto) Eos % (Auto) Baso % (Auto) Neut # Lymph # [place] # Eos # Baso # Neutrophils % (Manual) Band Neutrophils % Lymphocytes % (Manual) Monocytes % (Manual) Metamyelocytes % Nucleated RBC % Toxic Granulation Platelet Estimate Polychromasia Hypochromasia (manual) Poikilocytosis (manual Basophilic Stippling Anisocytosis (manual) Macrocytosis (manual) Isac Cells PT INR APTT Fibrinogen Fibrin Degrad Products Fibrin Degrad Prod, Qt Puncture Site Rr Rb pCO2 21 L 24 L pO2 126 H 78 L HCO3 20.1 L 26.4 ABG pH 7.47 H 7.61 H* ABG Total CO2 15.9 L 24.8 ABG O2 Saturation 100.1 H ABG Base Excess -6.2 L 1.8 ABG Hemoglobin 3.1 L ABG Carboxyhemoglobin 2.6 H POC ABG HHb (Measured) -0.1 L ABG Methemoglobin 0.3 Hoang Test Pos Na ABG Potassium 4.5 VBG pH VBG pCO2 VBG HCO3 VBG Total CO2 VBG O2 Sat (Calc) VBG Base Excess VBG Potassium A-a O2 Difference 561.0 391.0 Respiratory Index 4.5 5.0 Hgb O2 Saturation 97.2 Sodium 145.0 Chloride 123.0 H Glucose 61 L Lactate 3.4 H Mechanical Rate 14 14 FiO2 100.0 70.0 Tidal Volume 450 450 PEEP 5 5 Crit Value Called To Nany white/handicapper harness racing Crit Value Called By Rashaun fraser/rt Crit Value Read Back Y Blood Gas Notified Time 540 Potassium Carbon Dioxide Anion Gap BUN Creatinine Est GFR ( Amer) Est GFR (Non-Af Amer) POC Glucose (mg/dL) 185 H Random Glucose Lactic Acid Calcium Phosphorus Magnesium Total Bilirubin AST ALT Alkaline Phosphatase Total Creatine Kinase CK-MB (Mass) Troponin I, Quant Total Protein Albumin Globulin Albumin/Globulin Ratio Arterial Blood Potassium 4.5 Venous Blood Potassium 02/24/17 02/24/17 02/24/17 06:05 06:05 08:12 WBC 2.0 L* RBC 2.00 L Hgb 6.2 L* Hct 18.2 L MCV 90.7 MCH 30.7 MCHC 33.9 RDW 16.0 H Plt Count 23 L* D MPV 8.4 Neut % (Auto) 95.5 H Lymph % (Auto) 0.7 L [place] % (Auto) 2.3 Eos % (Auto) 1.3 Baso % (Auto) 0.2 Neut # 1.9 Lymph # 0.0 L [place] # 0.0 Eos # 0.0 Baso # 0.0 Neutrophils % (Manual) 81 H Band Neutrophils % 13 H* Lymphocytes % (Manual) 4 L Monocytes % (Manual) 2 Metamyelocytes % Nucleated RBC % 6 H Toxic Granulation Present Platelet Estimate Markedly decreased L Polychromasia Slight Hypochromasia (manual) Slight Poikilocytosis (manual Slight Basophilic Stippling Moderate Anisocytosis (manual) Slight Macrocytosis (manual) Hamilton Cells Slight PT INR APTT Fibrinogen Fibrin Degrad Products Fibrin Degrad Prod, Qt Puncture Site pCO2 pO2 19 L HCO3 ABG pH ABG Total CO2 ABG O2 Saturation ABG Base Excess ABG Hemoglobin ABG Carboxyhemoglobin POC ABG HHb (Measured) ABG Methemoglobin Hoang Test ABG Potassium VBG pH 7.24 L VBG pCO2 79 H* VBG HCO3 25.9 VBG Total CO2 36.3 H VBG O2 Sat (Calc) 27.5 L VBG Base Excess 3.9 H VBG Potassium 4.3 A-a O2 Difference Respiratory Index Hgb O2 Saturation Sodium 136 141.0 Chloride 98 104.0 Glucose 136 H Lactate 3.1 H Mechanical Rate FiO2 70.0 Tidal Volume PEEP 5 Crit Value Called To Dr bunch Crit Value Called By Rhonda carballo career discovery teacher Crit Value Read Back Y Blood Gas Notified Time 820 Potassium 4.1 Carbon Dioxide 30 Anion Gap 13 BUN 90 H Creatinine 2.6 H Est GFR ( Amer) 29 Est GFR (Non-Af Amer) 24 POC Glucose (mg/dL) Random Glucose 136 H Lactic Acid Calcium 5.1 L* Phosphorus 7.8 H Magnesium 1.5 L Total Bilirubin 1.1 AST 2385 H ALT 2096 H Alkaline Phosphatase 38 Total Creatine Kinase CK-MB (Mass) Troponin I, Quant Total Protein 3.2 L Albumin 1.7 L D Globulin 1.5 L Albumin/Globulin Ratio 1.1 Arterial Blood Potassium Venous Blood Potassium 4.3 02/24/17 02/24/17 09:02 13:33 WBC RBC Hgb Hct MCV MCH MCHC RDW Plt Count MPV Neut % (Auto) Lymph % (Auto) [place] % (Auto) Eos % (Auto) Baso % (Auto) Neut # Lymph # [place] # Eos # Baso # Neutrophils % (Manual) Band Neutrophils % Lymphocytes % (Manual) Monocytes % (Manual) Metamyelocytes % Nucleated RBC % Toxic Granulation Platelet Estimate Polychromasia Hypochromasia (manual) Poikilocytosis (manual Basophilic Stippling Anisocytosis (manual) Macrocytosis (manual) Isac Cells PT 29.2 H INR 2.5 APTT 32 Fibrinogen 171 L Fibrin Degrad Products Positive H Fibrin Degrad Prod, Qt >10<40 H Puncture Site pCO2 pO2 HCO3 ABG pH ABG Total CO2 ABG O2 Saturation ABG Base Excess ABG Hemoglobin ABG Carboxyhemoglobin POC ABG HHb (Measured) ABG Methemoglobin Hoang Test ABG Potassium VBG pH VBG pCO2 VBG HCO3 VBG Total CO2 VBG O2 Sat (Calc) VBG Base Excess VBG Potassium A-a O2 Difference Respiratory Index Hgb O2 Saturation Sodium Chloride Glucose Lactate Mechanical Rate FiO2 Tidal Volume PEEP Crit Value Called To Crit Value Called By Crit Value Read Back Blood Gas Notified Time Potassium Carbon Dioxide Anion Gap BUN Creatinine Est GFR ( Amer) Est GFR (Non-Af Amer) POC Glucose (mg/dL) Random Glucose Lactic Acid 3.7 H Calcium Phosphorus Magnesium Total Bilirubin AST ALT Alkaline Phosphatase Total Creatine Kinase CK-MB (Mass) Troponin I, Quant Total Protein Albumin Globulin Albumin/Globulin Ratio Arterial Blood Potassium Venous Blood Potassium Fingerstick Blood Sugar Results: 125 Critical Care Progress Note - Nutrition Nutrition: Nutrition Category Date Time Status NPO Diet [DIET] Diets 02/23/17 Breakfast Active Assessment/Plan (1) Septic shock Assessment and plan: 81 year old male with medical history of AAA s/p stent placement, bilateral iliac aneurysms, chronic kidney disease, hypertension, DM, COPD, and paroxysmal atrial fibrillation brought into ED from group home for respiratory distress. p/w septic shock. Neuro: Metabolic encephalopathy Pulm: Acute respiratory failure, intubated on vent. CV: Septic shock, with low EF seen on echo. on 3 pressors, levo/vaso/keo. Started stress dose steroids. Pressure stabilized. Hem: Severe anemia from unknown causes, possible underlying GI bleed. Thrombocytopenia and factor deficiency, most likely in DIC. Giving 3 units FFP , fibrinogen still >100 no need for cryoprecipitate yet. Will trend Fibrinogen. Renal: Acute renal failure, will monitor urine output, multiple fluid boluses, NS@150 Endo: DM type II, short acting insulin sliding scale for coverage GI: Transaminitis, possible hepatic failure, etiology uncertain, considering hepatic congestion. Started on protonix gtt, suspicion of GI bleed. ID: Septic shock, source uncertain possible pneumonia. Started on Vanco and Meropenem, Gent x 1, Ampicillin for possible VRE. ID consulted. DVT proph - holding anticoagulation with current risk of bleeding, SCDs GI proph - Protonix gtt mcpherson for strict I/O's during acute illness Code status - DNR Mortality risk is very high. Crtical Care Time spent 35 minutes Multi-disciplinary rounds were performed with house staff, nursing, speech therapy, respiratory therapy, pharmacy and nutrition with integrated input from the primary team/attending and other consulting services. The documented time is cumulative and includes review of patient data/exams/labs/chart review and examination of the patient on rounds and throughout the day; time is exclusive of any procedures or teaching time. Current Visit: Yes Status: Acute
[2017-02-24] MEDS: PHENYLEPHRINE IV PRN (16:52)
[2017-02-24] MEDS: Meropenem 500 MG in Sodium Chloride 0.9% 100 ML IVPB SCH ×2 (19:40→22:11)
[2017-02-25] MEDS: Pantoprazole 80 MG in Sodium Chloride 0.9% 100 ML IVP SCH ×3 (00:15→22:03)
[2017-02-25 06:02] LABS: ABG ALLEN TEST NEG; ABG MECHANICAL RATE 14; ARTERIAL BLOOD HGB O2 SAT 87.9 % (95.0-98.0); ATERIAL BLOOD GAS PEEP 5; CARBOXYHEMOGLOBIN 3.2 % (0.5-1.5); DRAW SITE LFEM; HHB 8.1 % (0.0-5.0); METHEMOGLOBIN 0.8 % (0.0-3.0)
[2017-02-25] MEDS: Meropenem 500 MG in Sodium Chloride 0.9% 100 ML IVPB SCH ×3 (06:03→22:04)
[2017-02-25] MEDS: NOREPINEPHRINE IV PRN ×2 (06:20→22:40)
[2017-02-25] MEDS: SODIUM CHLORIDE 0.9% IV PRN ×4 (06:20→22:40)
[2017-02-25 06:35] LABS: HEMATOCRIT 15.2 % (35.0-51.0); MEAN CELL VOLUME 89.4 fL (80.0-94.0); MEAN CORPUSCULAR HEMOGLOBIN 29.7 pg (27.0-31.0); MEAN CORPUSCULAR HGB CONC 33.2 g/dL (33.0-37.0); MEAN PLATELET VOLUME 7.8 fL (7.2-11.7)
[2017-02-25 06:41] VITALS: O2SAT 53
[2017-02-25 06:46] LABS: POTASSIUM 4.6 mmol/L (3.6-5.2)
[2017-02-25 06:49] LABS: ALB/GLOB RATIO 1.1 (1.0-2.1); BILIRUBIN,TOTAL 2.4 mg/dL (0.2-1.3); TOTAL PROTEIN 3.4 g/dL (6.3-8.3)
[2017-02-25 06:50] LABS: MAGNESIUM 1.5 mg/dL (1.6-2.3); WHITE BLOOD COUNT 1.6 K/uL (4.8-10.8)
[2017-02-25 06:53] LABS: CALCIUM 5.1 mg/dl (8.6-10.4)
[2017-02-25] MEDS: PHENYLEPHRINE IV PRN ×2 (08:24→22:30)
--- NOTE | 2017-02-25 09:19 | CP.PCM.PN ---
Subjective - Date & Time of Evaluation Date of Evaluation: 02/25/17 Time of Evaluation: 08:00 - Subjective Subjective: PGY2 Medicine Note - Dr. Lomax's service: Patient seen and examined at bedside. Patient intubated and sedated and on 3 pressors. Patient bleeding from multiple sites. Patient is pancytopenic. Replacing blood products and giving hydrocortisone 50 Q6. Patient made DNR yesterday by family. Objective - Vital Signs/Intake and Output Vital Signs (last 24 hours): Temp Pulse Resp BP Pulse Ox 98.2 F 138 H 14 87/51 L 53 L 02/25/17 05:05 02/25/17 07:30 02/25/17 08:24 02/25/17 08:24 02/25/17 04:15 Intake and Output: 02/25/17 02/25/17 06:59 18:59 Intake Total 3731.6 806.8 Output Total 780 80 Balance 2951.6 726.8 - Medications Medications: Current Medications Hydrocortisone Sodium Succinate (Solu-Cortef) 50 mg IV Q6H NGUYỄN Last Admin: 02/25/17 06:03 Dose: 50 mg Fentanyl Citrate 2,500 mcg/ (Sodium Chloride) 250 mls @ 86.18 mls/hr IV .Q2H55M PRN; 10 MCG/KG/HR PRN Reason: Protocol Last Admin: 02/24/17 12:57 Dose: 1.5 mcg/kg/hr, 12.92 mls/hr Vasopressin 40 units/ Sodium (Chloride) 40 mls @ 0.6 mls/hr IV .Q24H NGUYỄN; 0.01 UNITS/MIN PRN Reason: Protocol Last Admin: 02/25/17 01:02 Dose: 0.04 units/min, 2.4 mls/hr Sodium Chloride (Sodium Chloride 0.9%) 1,000 mls @ 100 mls/hr IV .Q10H NGUYỄN Last Admin: 02/24/17 21:15 Dose: Not Given Pantoprazole Sodium 80 mg/ (Sodium Chloride) 100 mls @ 10 mls/hr IVP .Q10H NGUYỄN PRN Reason: 8 MG/HR Last Admin: 02/25/17 00:15 Dose: Not Given Norepinephrine Bitartrate 32 (mg/ Sodium Chloride) 1,000 mls @ 7.5 mls/hr IV .Q24H PRN; Protocol; 4 MCG/MIN PRN Reason: TITRATE PER MD ORDER Last Admin: 02/25/17 06:20 Dose: 30.02 mcg/min, 56.28 mls/hr Phenylephrine HCl 120 mg/ (Sodium Chloride) 500 mls @ 4.99 mls/hr IV .Q24H PRN ; Protocol; 20 MCG/MIN PRN Reason: TITRATE PER MD ORDER Last Admin: 02/25/17 08:24 Dose: 150 mcg/min, 37.5 mls/hr Gentamicin Sulfate 120 mg/ (Sodium Chloride) 103 mls @ 100 mls/hr IVPB Q24H [facility] Last Admin: 02/24/17 12:17 Dose: 100 mls/hr Meropenem 500 mg/ Sodium (Chloride) 100 mls @ 100 mls/hr IVPB Q8 [facility] Last Admin: 02/25/17 06:03 Dose: 100 mls/hr Micafungin Sodium 100 mg/ (Sodium Chloride) 100 mls @ 100 mls/hr IV Q24H NGUYỄN Last Admin: 02/24/17 11:20 Dose: 100 mls/hr Vancomycin HCl 1,000 mg/ (Sodium Chloride) 250 mls @ 166.6 mls/hr IVPB Q12H NGUYỄN Last Admin: 02/25/17 02:32 Dose: 166.6 mls/hr Ampicillin 2 gm/ Sodium (Chloride) 100 mls @ 50 mls/hr IVPB Q6H [facility] Last Admin: 02/25/17 06:02 Dose: 50 mls/hr - Labs Labs: 02/25/17 06:32 02/25/17 06:32 PT 22.5 SECONDS (9.7-12.2) H D 02/25/17 06:32 INR 2.0 D 02/25/17 06:32 APTT 31 SECONDS (21-34) 02/25/17 06:32 - Constitutional Appears: In Acute Distress, Chronically Ill - Head Exam Head Exam: NORMAL INSPECTION - ENT Exam ENT Exam: Mucous Membranes Moist - Respiratory Exam Respiratory Exam: Rales, Rhonchi, Respiratory Distress (intubated on ventilator) , NORMAL BREATHING PATTERN - Cardiovascular Exam Cardiovascular Exam: Tachycardia, +S1, +S2 - GI/Abdominal Exam GI & Abdominal Exam: Soft, Normal Bowel Sounds - Neurological Exam Neurological Exam: absent: Awake Additional comments: sedated - Skin Skin Exam: Normal Color, Warm Assessment and Plan - Assessment and Plan (Free Text) Assessment: Septic Shock On 3 pressors Hydrocortisone 50mg IV Q6 for possible adrenal insufficiency INR elevated at 2.9 on admission--> Vitamin K 10mg IV one dose INR 2.0 today Gentamicin 120mg IVPB Q24H Meropenem 1gm IVPB Q8 Micafungin 100mg IV Q24H Vancomycin 1gm IVPB Q12H Blood Cx: Gram + cocci in chains urine culture negative Respiratory Distress possibly secondary to sepsis/pneumonia vs. UT Intubated - FiO2 70, PEEP 5, RR 14, Tidal Volume 450 VBG: pH 7.33, pO2 25, pCO2 53, HCO3 24.1, Lactate 11.6 Transferred to ICU for management Blood Cx: Gram + cocci in chains Vancomycin 1gm IVPB Q12H Sedated on Fentanyl IV Troponin I elevated 0.1600, 0.326 ECHO - normal (please see full report) CXR: 1. Endotracheal tube terminates 1.1 cm proximal to the jordyn. 2. Suspect left lower lobe atelectasis/ pneumonia and small pleural effusion. Follow-up to resolution is advised. Chest/Abd/Pelvis CT w/o IV contrast: Endotracheal tube terminates, approximately 9 mm. Nasogastric tube extends expected location of the stomach. The unenhanced mediastinal and hilar vascular structures appear grossly unremarkable. Mild cardiomegaly. Dense coronary artery and valvular calcifications. Small pericardial effusion. 13 mm prevascular lymph node. Inferior right upper lobe consolidation. Qjel-zbbcido-cglr-right dependent consolidations. No significant pleural effusion. No visible pneumothorax. Small fluid within the distal esophagus consistent with gastroesophageal reflux. Ectatic thoracic aorta with dense atherosclerotic calcifications. 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 This involves the supra- and infrarenal abdominal aorta. Evidence of previous repair. 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 15 mm hepatic dome low-density lesion and 15 mm medial right inferior hepatic lobe low-density lesion, possibly cysts. 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 Marked renal cortical thinning/ atrophy. Right-sided hydroureter nephrosis. Unremarkable unenhanced appearance of the left kidney. Interval development of mesenteric and peripancreatic inflammatory changes which extend into the lower abdomen. Fatty atrophy of the pancreas. The noncontrast spleen, adrenal glands, and gallbladder appear unremarkable. The stomach is nondistended. Lack of oral contrast limits evaluation for bowel pathology. The bowel loops appear within normal limits of caliber without evidence of intestinal obstruction. Diverticulosis without CT evidence of acute diverticulitis. There is no definite free air. Boyce catheter within a decompressed urinary bladder. Right femoral venous catheter. Soft tissue edema. Osseous demineralization. Multilevel degenerative changes. Severe scoliosis. Interval development of mesenteric and peripancreatic inflammatory changes which extend into the lower abdomen. Correlate clinically. Recommend correlation with amylase and lipase to exclude possibility of pancreatitis. Fatty atrophy of the pancreas. Diverticulosis without CT evidence of acute diverticulitis. Hypotension Started on Norepinephrine drip, Phenylephrine drip, and Dopamine drip. Monitor Pancytopenia - Severe Macrocytic Anemia Hemoglobin/Hematocrit 5.1/15.2 s/p 5 units pRBCs over 2 days ICU team transfusing as needed Evaluated for possible abdominal bleed- no evidence of bleed on CT study Pt visibly bleeding on suction, from mouth and urine Urinalysis: blood 3+, RBC 384 Type & Screen/Type & Cross Monitor - Thrombocytopenia Platelets of 32 s/p 3 units of platelets and 4 units FFP ICU team transfusing as needed Monitor - Leukopenia of 1.6 Transfuse packed leukocytes as needed Transaminitis likely shock liver AST/ALT: 2385/2096 worsening Monitor Prophylaxis blanket warmer
[2017-02-25] MEDS: Sodium Chloride 0.9% 1,000 ML IV SCH ×3 (10:14→22:02)
[2017-02-25] MEDS: Micafungin 100 MG in Sodium Chloride 0.9% 100 ML IV SCH (12:28)
--- NOTE | 2017-02-25 14:26 | CP.PCM.CON ---
History of Present Illness - History of Present Illness History of Present Illness: 81 year old male [place] [facility] ED [facility] for respiratory distress. Patient was found to be severely hypotensive with initial blood pressure of 48/ 31 in ED. Of note, hematuria was visualized from mcpherson output. CBC revealed a hemoglobin of 4.8 and platelets of 20. Ecchymoses noted to bilateral arms, abdomen, and flank. Reportedly, patient was initially alert and responsive but required intubation due to impending respiratory failure. ADMITTED TO icu WITH SEPTIC SHOCK RESP FAILURE AND PANCYTOPENIA HAS POSITIVE BLOOD CULTURES REMAINS OBTUNDED ON VENT PMH: medical history of AAA s/p stent placement, bilateral iliac aneurysms, chronic kidney disease, hypertension, DM, COPD, and paroxysmal atrial fibrillation Medications: Xarelto, Aspirin 81 mg po daily, Lovaza 1 gm po daily, Crestor 10 mg po HS, Advair Diskus 250/50 IH HS, Spiriva 18 mcg INH RQ24, Pulmicort 0.25 mg INH RQ12, Pantoprazole 40 mg po daily, Flomax 0.4 mg po daily, Lasix 40 mg po daily, Colace 100 mg po BID, Cardizem CD 360 mg po daily, Coreg 12.5 mg po BID, Scopolamine patch TD Q3D, Repaglinide 1 mg po TIDAC Allergies: NKDA PSH: Hernia repair X 2, Abdominal Aortic Aneurysm Stent, Vascular grafts, Incarcerated hernia repair 05/2015 Hosp: Recent ICU admission for SOB and CP FH: Mother -Throat CA, brother - CAD Social: > 50 pack years - Quit 15 years ago, denies ETOH/illicit drug use, uses Rolling walker at home. Review of Systems - Review of Systems Systems not reviewed;Unavailable: Altered Mental Status - Constitutional Constitutional: As Per HPI - EENT Eyes: absent: As Per HPI, Blind Spots, Blurred Vision, Change in Vision, Decreased Night Vision, Diplopia, Discharge, Dry Eye, Exophthalmos, Floaters, Irritation, Itchy Eyes, Loss of Peripheral Vision, Pain, Photophobia, Requires Corrective Lenses, Sees Flashes, Spots in Vision, Tunnel Vision, Other Visual Disturbances, Loss of Vision, Other Ears: absent: As Per HPI, Decreased Hearing, Ear Discharge, Ear Pain, Tinnitus, Abnormal Hearing, Disequilibrium, Dizziness, Other Nose/Mouth/Throat: absent: As Per HPI, Epistaxis, Nasal Congestion, Nasal Discharge, Nasal Obstruction, Nasal Trauma, Nose Pain, Post Nasal Drip, Sinus Pain, Sinus Pressure, Bleeding Gums, Change in Voice, Dental Pain, Dry Mouth, Dysphagia, Halitosis, Hoarsness, Lip Swelling, Mouth Lesions, Mouth Pain, Odynophagia, Sore Throat, Throat Swelling, Tongue Swelling, Facial Pain, Neck Pain, Neck Mass, Other - Cardiovascular Cardiovascular: As Per HPI - Respiratory Respiratory: As Per HPI - Gastrointestinal Gastrointestinal: As Per HPI - Genitourinary Genitourinary: As Per HPI - Musculoskeletal Musculoskeletal: As Per HPI. absent: Abnormal Gait, Arthralgias, Atrophy, Back Pain, Deformity, Joint Swelling, Limited Range of Motion, Loss of Height, Muscle Cramps, Muscle Weakness, Myalgias, Neck Pain, Numbness, Radiating Pain into Limb, Stiffness, Tingling, Other - Integumentary Integumentary: As Per HPI - Neurological Neurological: As Per HPI. absent: Abnormal Gait, Abnormal Hearing, Abnormal Movements, Abnormal Speech, Behavioral Changes, Burning Sensations, Confusion, Convulsions, Disequilibrium, Dizziness, Numbness, Focal Weakness, Frequent Falls , Headaches, Lack of Coordination, Loss of Vision, Memory Loss, Paresthesias, Radicular Pain, Restless Legs, Sensory Deficit, Syncope, Tingling, Tremor, Vertigo, Weakness, Other Visual Disturbances, Other - Psychiatric Psychiatric: absent: As Per HPI, Abnormal Sleep Pattern, Anhedonia, Anxiety, Auditory Hallucinations, Behavioral Changes, Change in Appetite, Change in Libido, Confusion, Depression, Difficulty Concentrating, Hallucinations, Homicidal Ideation, Hopelessness, Irritability, Memory Loss, Mood Swings, Panic Attacks, Paranoia, Suicidal Ideation, Visual Hallucinations, Tactile Hallucinations, Other - Endocrine Endocrine: As Per HPI. absent: Change in Body Appearance, Change in Libido, Cold Intolorance, Deepening of Voice, Excessive Sweating, Fatigue, Flushing, Heat Intolorance, Increase in Ring/Shoe/Hat Size, Palpitations, Polydipsia, Polyphagia, Polyuria, Other - Hematologic/Lymphatic Hematologic: absent: As Per HPI, Easy Bleeding, Easy Bruising, Lymphadenopathy, Other Past Patient History - Past Medical History & Family History Past Medical History?: No - Past Social History Smoking Status: Former Smoker - CARDIAC Hx Hypercholesterolemia: Yes Hx Hypertension: Yes - PULMONARY Hx Asthma: Yes Hx Chronic Obstructive Pulmonary Disease (COPD): Yes Hx Emphysema: Yes - NEUROLOGICAL Hx Neurological Disorder: No - HEENT Hx Cataracts: Yes (5-YRS AGO) - RENAL Other/Comment: Pre renal - ENDOCRINE/METABOLIC Hx Diabetes Mellitus Type 2: Yes - HEMATOLOGICAL/ONCOLOGICAL Hx Anemia: Yes - INTEGUMENTARY Hx Dermatological Problems: No Other/Comment: left leg blister open like slightly red dsg on - MUSCULOSKELETAL/RHEUMATOLOGICAL Hx Arthritis: Yes - GASTROINTESTINAL Hx Gastrointestinal Disorders: No - GENITOURINARY/GYNECOLOGICAL Hx Prostate Problems: Yes (Enlarged Prostate) - PSYCHIATRIC Hx Substance Use: No - SURGICAL HISTORY Hx Surgeries: Yes Hx Abdominal Aortic Aneurysm Repair: Yes (1999) Hx Cataract Extraction: Yes - ANESTHESIA Hx Anesthesia: Yes Hx Anesthesia Reactions: No Meds Allergies/Adverse Reactions: Allergies Allergy/AdvReac Type Severity Reaction Status Date / Time No Known Allergies Allergy Verified 02/23/17 07:03 - Medications Medications: Current Medications Hydrocortisone Sodium Succinate (Solu-Cortef) 50 mg IV Q6H NGUYỄN Last Admin: 02/25/17 12:50 Dose: 50 mg Fentanyl Citrate 2,500 mcg/ (Sodium Chloride) 250 mls @ 86.18 mls/hr IV .Q2H55M PRN; 10 MCG/KG/HR PRN Reason: Protocol Last Admin: 02/25/17 13:20 Dose: 1.5 mcg/kg/hr, 12.92 mls/hr Vasopressin 40 units/ Sodium (Chloride) 40 mls @ 0.6 mls/hr IV .Q24H NGUYỄN; 0.01 UNITS/MIN PRN Reason: Protocol Last Admin: 02/25/17 01:02 Dose: 0.04 units/min, 2.4 mls/hr Sodium Chloride (Sodium Chloride 0.9%) 1,000 mls @ 100 mls/hr IV .Q10H NGUYỄN Last Admin: 02/25/17 10:14 Dose: 100 mls/hr Pantoprazole Sodium 80 mg/ (Sodium Chloride) 100 mls @ 10 mls/hr IVP .Q10H NGUYỄN PRN Reason: 8 MG/HR Last Admin: 02/25/17 10:02 Dose: 10 mls/hr Norepinephrine Bitartrate 32 (mg/ Sodium Chloride) 1,000 mls @ 7.5 mls/hr IV .Q24H PRN; Protocol; 4 MCG/MIN PRN Reason: TITRATE PER MD ORDER Last Admin: 02/25/17 06:20 Dose: 30.02 mcg/min, 56.28 mls/hr Phenylephrine HCl 120 mg/ (Sodium Chloride) 500 mls @ 4.99 mls/hr IV .Q24H PRN ; Protocol; 20 MCG/MIN PRN Reason: TITRATE PER MD ORDER Last Admin: 02/25/17 08:24 Dose: 150 mcg/min, 37.5 mls/hr Gentamicin Sulfate 120 mg/ (Sodium Chloride) 103 mls @ 100 mls/hr IVPB Q24H NGUYỄN Last Admin: 02/25/17 11:17 Dose: 100 mls/hr Meropenem 500 mg/ Sodium (Chloride) 100 mls @ 100 mls/hr IVPB Q8 [facility] Last Admin: 02/25/17 13:41 Dose: 100 mls/hr Micafungin Sodium 100 mg/ (Sodium Chloride) 100 mls @ 100 mls/hr IV Q24H [facility] Last Admin: 02/25/17 12:28 Dose: 100 mls/hr Vancomycin HCl 1,000 mg/ (Sodium Chloride) 250 mls @ 166.6 mls/hr IVPB Q12H [facility] Last Admin: 02/25/17 02:32 Dose: 166.6 mls/hr Ampicillin 2 gm/ Sodium (Chloride) 100 mls @ 50 mls/hr IVPB Q6H [facility] Last Admin: 02/25/17 12:17 Dose: 50 mls/hr Physical Exam - Constitutional Appears: Toxic, Confused, Cachectic, Chronically Ill - Head Exam Head Exam: ATRAUMATIC, NORMAL INSPECTION, NORMOCEPHALIC - Eye Exam Eye Exam: EOMI, PERRL. absent: Scleral icterus - ENT Exam ENT Exam: Mucous Membranes Dry, Normal External Ear Exam Additional comments: INTUBATED ORALLY - Neck Exam Neck exam: Negative for: Lymphadenopathy - Respiratory Exam Respiratory Exam: Decreased Breath Sounds, Rhonchi - Cardiovascular Exam Cardiovascular Exam: REGULAR RHYTHM, +S1, +S2 - GI/Abdominal Exam GI & Abdominal Exam: Diminished Bowel Sounds, Distended, Soft. absent: Guarding , Rebound, Rigid, Tenderness - Rectal Exam Rectal Exam: Deferred - Extremities Exam Extremities exam: Positive for: pedal edema. Negative for: calf tenderness, tenderness, pedal pulses present Additional comments: + ULCER TO LLE - Back Exam Back exam: absent: CVA tenderness (L), CVA tenderness (R) - Neurological Exam Neurological exam: Altered - Psychiatric Exam Psychiatric exam: Depressed Results - Vital Signs Recent Vital Signs: Last Vital Signs Temp 98.2 F 02/25/17 05:05 Pulse 80 02/25/17 13:00 Resp 14 02/25/17 13:00 BP 113/63 02/25/17 12:29 Pulse Ox 53 L 02/25/17 04:15 - Labs Result Diagrams: 02/25/17 06:32 02/25/17 06:32 Labs: Laboratory Results - last 24 hr 02/25/17 02/25/17 02/25/17 05:50 06:32 06:32 WBC 1.6 L* RBC 1.70 L Hgb 5.1 L* Hct 15.2 L MCV 89.4 MCH 29.7 MCHC 33.2 RDW 15.0 H Plt Count 32 L MPV 7.8 PT 22.5 H D INR 2.0 D APTT 31 Puncture Site Lfem pCO2 50 H pO2 53 L HCO3 25.3 ABG pH 7.33 L ABG Total CO2 27.9 ABG O2 Saturation 91.6 L ABG Base Excess 0.5 ABG Hemoglobin 5.6 L ABG Carboxyhemoglobin 3.2 H POC ABG HHb (Measured) 8.1 H ABG Methemoglobin 0.8 Hoang Test Neg A-a O2 Difference 384.0 Respiratory Index 7.2 Hgb O2 Saturation 87.9 L Mechanical Rate 14 FiO2 70.0 Tidal Volume 450 PEEP 5 Crit Value Called To Crit Value Called By Kathy feldman rcp Crit Value Read Back Y Blood Gas Notified Time 605 Sodium Potassium Chloride Carbon Dioxide Anion Gap BUN Creatinine Est GFR ( Amer) Est GFR (Non-Af Amer) Random Glucose Calcium Phosphorus Magnesium Total Bilirubin AST ALT Alkaline Phosphatase Total Protein Albumin Globulin Albumin/Globulin Ratio 02/25/17 06:32 WBC RBC Hgb Hct MCV MCH MCHC RDW Plt Count MPV PT INR APTT Puncture Site pCO2 pO2 HCO3 ABG pH ABG Total CO2 ABG O2 Saturation ABG Base Excess ABG Hemoglobin ABG Carboxyhemoglobin POC ABG HHb (Measured) ABG Methemoglobin Hoang Test A-a O2 Difference Respiratory Index Hgb O2 Saturation Mechanical Rate FiO2 Tidal Volume PEEP Crit Value Called To Crit Value Called By Crit Value Read Back Blood Gas Notified Time Sodium 139 Potassium 4.6 Chloride 102 Carbon Dioxide 25 Anion Gap 17 BUN 82 H Creatinine 2.7 H Est GFR ( Amer) 28 Est GFR (Non-Af Amer) 23 Random Glucose 97 Calcium 5.1 L* Phosphorus 8.0 H Magnesium 1.5 L Total Bilirubin 2.4 H AST 576 H D ALT 809 H D Alkaline Phosphatase 58 Total Protein 3.4 L Albumin 1.8 L Globulin 1.7 L Albumin/Globulin Ratio 1.1 Assessment & Plan (1) ESRD (end stage renal disease) on dialysis Status: Acute (2) Septic shock Status: Acute (3) Acute renal failure Status: Acute (4) Atrial fibrillation with rapid ventricular response Status: Acute (5) CAD (coronary artery disease) Status: Acute (6) AAA (abdominal aortic aneurysm) Status: Chronic (7) Diabetes mellitus Status: Chronic - Assessment and Plan (Free Text) Assessment: CONT IV ANTIBIOTIC ORDERED FOR SEPSIS / BACTEREMIA AWAIT CULTURE
--- NOTE | 2017-02-25 18:17 | CP.CCUPN ---
CCU Subjective - Physician Review Events Since Last Encounter (Free Text): 02/25/17 18:17 81-year-old male with a AAA, clear-cut aneurysm renal insufficiency hypertension diabetes COPD atrial fibrillation admitted with the severe septic shock, complicated with the worsening multiorgan failure. Family understand the condition. Signed a DNR. On supportive care right now CCU Objective - Vital Signs / Intake & Output Vital Signs (Last 4 hours): Vital Signs Pulse Resp BP 02/25/17 17:48 78 14 121/73 Intake and Output (Last 8hrs): Intake & Output 02/25/17 02/25/17 02/25/17 06:59 14:59 22:59 Intake Total 2855.4 2574.4 690.4 Output Total 520 695 150 Balance 2335.4 1879.4 540.4 Intake: IV 1040 750 40 Intake, IV Amount 1815.4 1824.4 650.4 Left Port-A-Cath 726 900 300 RIGHT Y-MID PORT 250 70 30 Right Distal Port Femoral 450.4 450.4 168.9 Right Femoral 285.0 300.0 112.5 Right Medial Port Femoral 84.8 84.8 31.8 Right Proximal Port 19.2 19.2 7.2 Femoral Blood Product 0 Red Blood Cells Cpd As1 0 Lr Unit [id number] Output: Urine 520 695 150 Urethral (Boyce) 520 695 150 - Medications Active Medications: Active Medications Generic Name Dose Route Start Last Admin Trade Name Freq PRN Reason Stop Dose Admin Hydrocortisone Sodium Succinate 50 mg 02/24/17 00:00 02/25/17 17:40 Solu-Cortef IV 50 mg Q6H NGUYỄN Administration Fentanyl Citrate 2,500 mcg/ 250 mls @ 86.18 mls/hr 02/23/17 07:30 02/25/17 13 :20 Sodium Chloride IV 1.5 mcg/kg/hr .Q2H55M PRN 12.92 mls/hr Protocol Administration 10 MCG/KG/HR Vasopressin 40 units/ Sodium 40 mls @ 0.6 mls/hr 02/23/17 15:30 02/25/17 17: 48 Chloride IV 0.04 units/min .Q24H NGUYỄN 2.4 mls/hr Protocol Administration 0.01 UNITS/MIN Sodium Chloride 1,000 mls @ 100 mls/hr 02/24/17 01:45 02/25/17 10:14 Sodium Chloride 0.9% IV 100 mls/hr .Q10H NGUYỄN Administration Pantoprazole Sodium 80 mg/ 100 mls @ 10 mls/hr 02/24/17 04:15 02/25/17 10:02 Sodium Chloride IVP 10 mls/hr .Q10H NGUYỄN Administration 8 MG/HR Norepinephrine Bitartrate 32 1,000 mls @ 7.5 mls/hr 02/24/17 09:48 02/25/17 06:20 mg/ Sodium Chloride IV 30.02 mcg/min .Q24H PRN 56.28 mls/hr TITRATE PER MD ORDER Administration Protocol 4 MCG/MIN Phenylephrine HCl 120 mg/ 500 mls @ 4.99 mls/hr 02/24/17 09:52 02/25/17 08:24 Sodium Chloride IV 150 mcg/min .Q24H PRN 37.5 mls/hr TITRATE PER MD ORDER Administration Protocol 20 MCG/MIN Gentamicin Sulfate 120 mg/ 103 mls @ 100 mls/hr 02/24/17 11:15 02/25/17 11:17 Sodium Chloride IVPB 100 mls/hr Q24H NGUYỄN Administration Meropenem 500 mg/ Sodium 100 mls @ 100 mls/hr 02/24/17 20:00 02/25/17 13:41 Chloride IVPB 100 mls/hr Q8 NGUYỄN Administration Ampicillin 2 gm/ Sodium 100 mls @ 50 mls/hr 02/24/17 18:00 02/25/17 17:35 Chloride IVPB 50 mls/hr Q6H NGUYỄN Administration Fluconazole 100 mls @ 100 mls/hr 02/26/17 10:00 Diflucan Iv 200 Mg/100 Ml Ns IVPB DAILY NGUYỄN - Patient Studies Lab Studies: Microbiology Studies 02/23/17 Unknown MRSA Culture (Admit) - Final Naris MRSA NOT DETECTED Lab Studies 02/25/17 02/25/17 02/25/17 Range/Units 06:32 06:32 06:32 WBC 1.6 L* (4.8-10.8) K/uL RBC 1.70 L (4.40-5.90) Mil/uL Hgb 5.1 L* (12.0-18.0) g/dL Hct 15.2 L (35.0-51.0) % MCV 89.4 (80.0-94.0) fL MCH 29.7 (27.0-31.0) pg MCHC 33.2 (33.0-37.0) g/dL RDW 15.0 H (11.5-14.5) % Plt Count 32 L (130-400) K/uL MPV 7.8 (7.2-11.7) fL PT 22.5 H D (9.7-12.2) SECONDS INR 2.0 D APTT 31 (21-34) SECONDS Puncture Site pCO2 (35-45) mm/Hg pO2 (80-100) mm/Hg HCO3 (21-28) mmol/L ABG pH (7.35-7.45) ABG Total CO2 (22-28) mmol/L ABG O2 Saturation (95-98) % ABG Base Excess (-2.0-3.0) mmol/L ABG Hemoglobin (11.7-17.4) g/dL ABG Carboxyhemoglobin (0.5-1.5) % POC ABG HHb (Measured) (0.0-5.0) % ABG Methemoglobin (0.0-3.0) % Hoang Test A-a O2 Difference mm/Hg Respiratory Index Hgb O2 Saturation (95.0-98.0) % Mechanical Rate FiO2 % Tidal Volume PEEP Crit Value Called To Crit Value Called By Crit Value Read Back Blood Gas Notified Time Sodium 139 (132-148) mmol/L Potassium 4.6 (3.6-5.2) mmol/L Chloride 102 (98-107) mmol/L Carbon Dioxide 25 (22-30) mmol/L Anion Gap 17 (10-20) BUN 82 H (9-20) mg/dL Creatinine 2.7 H (0.8-1.5) MG/DL Est GFR ( Amer) 28 Est GFR (Non-Af Amer) 23 Random Glucose 97 (75-110) mg/dL Calcium 5.1 L* (8.6-10.4) mg/dl Phosphorus 8.0 H (2.5-4.5) mg/dL Magnesium 1.5 L (1.6-2.3) mg/dL Total Bilirubin 2.4 H (0.2-1.3) mg/dL AST 576 H D (17-59) U/L ALT 809 H D (21-72) U/L Alkaline Phosphatase 58 (38-126) U/L Total Protein 3.4 L (6.3-8.3) g/dL Albumin 1.8 L (3.5-5.0) g/dL Globulin 1.7 L (2.2-3.9) gm/dL Albumin/Globulin Ratio 1.1 (1.0-2.1) 02/25/17 Range/Units 05:50 WBC (4.8-10.8) K/uL RBC (4.40-5.90) Mil/uL Hgb (12.0-18.0) g/dL Hct (35.0-51.0) % MCV (80.0-94.0) fL MCH (27.0-31.0) pg MCHC (33.0-37.0) g/dL RDW (11.5-14.5) % Plt Count (130-400) K/uL MPV (7.2-11.7) fL PT (9.7-12.2) SECONDS INR APTT (21-34) SECONDS Puncture Site Lfem pCO2 50 H (35-45) mm/Hg pO2 53 L (80-100) mm/Hg HCO3 25.3 (21-28) mmol/L ABG pH 7.33 L (7.35-7.45) ABG Total CO2 27.9 (22-28) mmol/L ABG O2 Saturation 91.6 L (95-98) % ABG Base Excess 0.5 (-2.0-3.0) mmol/L ABG Hemoglobin 5.6 L (11.7-17.4) g/dL ABG Carboxyhemoglobin 3.2 H (0.5-1.5) % POC ABG HHb (Measured) 8.1 H (0.0-5.0) % ABG Methemoglobin 0.8 (0.0-3.0) % Hoang Test Neg A-a O2 Difference 384.0 mm/Hg Respiratory Index 7.2 Hgb O2 Saturation 87.9 L (95.0-98.0) % Mechanical Rate 14 FiO2 70.0 % Tidal Volume 450 PEEP 5 Crit Value Called To Crit Value Called By Kathy feldman rcp Crit Value Read Back Y Blood Gas Notified Time 605 Sodium (132-148) mmol/L Potassium (3.6-5.2) mmol/L Chloride (98-107) mmol/L Carbon Dioxide (22-30) mmol/L Anion Gap (10-20) BUN (9-20) mg/dL Creatinine (0.8-1.5) MG/DL Est GFR ( Amer) Est GFR (Non-Af Amer) Random Glucose (75-110) mg/dL Calcium (8.6-10.4) mg/dl Phosphorus (2.5-4.5) mg/dL Magnesium (1.6-2.3) mg/dL Total Bilirubin (0.2-1.3) mg/dL AST (17-59) U/L ALT (21-72) U/L Alkaline Phosphatase (38-126) U/L Total Protein (6.3-8.3) g/dL Albumin (3.5-5.0) g/dL Globulin (2.2-3.9) gm/dL Albumin/Globulin Ratio (1.0-2.1) Laboratory Results - last 24 hr 02/25/17 02/25/17 02/25/17 05:50 06:32 06:32 WBC 1.6 L* RBC 1.70 L Hgb 5.1 L* Hct 15.2 L MCV 89.4 MCH 29.7 MCHC 33.2 RDW 15.0 H Plt Count 32 L MPV 7.8 PT 22.5 H D INR 2.0 D APTT 31 Puncture Site Lfem pCO2 50 H pO2 53 L HCO3 25.3 ABG pH 7.33 L ABG Total CO2 27.9 ABG O2 Saturation 91.6 L ABG Base Excess 0.5 ABG Hemoglobin 5.6 L ABG Carboxyhemoglobin 3.2 H POC ABG HHb (Measured) 8.1 H ABG Methemoglobin 0.8 Hoang Test Neg A-a O2 Difference 384.0 Respiratory Index 7.2 Hgb O2 Saturation 87.9 L Mechanical Rate 14 FiO2 70.0 Tidal Volume 450 PEEP 5 Crit Value Called To Crit Value Called By Kathy feldman rcp Crit Value Read Back Y Blood Gas Notified Time 605 Sodium Potassium Chloride Carbon Dioxide Anion Gap BUN Creatinine Est GFR ( Amer) Est GFR (Non-Af Amer) Random Glucose Calcium Phosphorus Magnesium Total Bilirubin AST ALT Alkaline Phosphatase Total Protein Albumin Globulin Albumin/Globulin Ratio 02/25/17 06:32 WBC RBC Hgb Hct MCV MCH MCHC RDW Plt Count MPV PT INR APTT Puncture Site pCO2 pO2 HCO3 ABG pH ABG Total CO2 ABG O2 Saturation ABG Base Excess ABG Hemoglobin ABG Carboxyhemoglobin POC ABG HHb (Measured) ABG Methemoglobin Hoang Test A-a O2 Difference Respiratory Index Hgb O2 Saturation Mechanical Rate FiO2 Tidal Volume PEEP Crit Value Called To Crit Value Called By Crit Value Read Back Blood Gas Notified Time Sodium 139 Potassium 4.6 Chloride 102 Carbon Dioxide 25 Anion Gap 17 BUN 82 H Creatinine 2.7 H Est GFR ( Amer) 28 Est GFR (Non-Af Amer) 23 Random Glucose 97 Calcium 5.1 L* Phosphorus 8.0 H Magnesium 1.5 L Total Bilirubin 2.4 H AST 576 H D ALT 809 H D Alkaline Phosphatase 58 Total Protein 3.4 L Albumin 1.8 L Globulin 1.7 L Albumin/Globulin Ratio 1.1 Fingerstick Blood Sugar Results: 125 Critical Care Progress Note - Nutrition Nutrition: Nutrition Category Date Time Status NPO Diet [DIET] Diets 02/23/17 Breakfast Active
[2017-02-25 21:40] VITALS: TEMP 97.3
[2017-02-25 23:46] VITALS: BP 100/45; PULSE 73; RESP 15
--- NOTE | 2017-02-26 01:47 | CP.PCM.PRO ---
Pronouncement of Note - Clinical Findings Physical Exam: No Response Verbal/Painful Stimuli, Absent Peripheral Pulses{ Carotid & Femoral}, Absent Heart & Breath Sounds, No Pupillary Light Reflex, No Corneal Reflex, Absence of Vital Signs - Pronouncement Time Time of Pronouncement of : 00:58 - Notifications Pronouncement Notifications: Family Notified (Being called by nursing not able to reach at the time of note) Legal Department Manager Notified: No - Autopsy Autopsy Requested: No - [place] [id number]
[2017-02-26] MEDS ORDERED: Fluconazole IV 200mg/100 ml NS 100 ML IVPB SCH (10:00)
== END 2017-02-26 04:15 | DRG 871 ==
LOC: SUPCPDRO 05:56 → C.ER 05:56 → C.9I 08:17
PROVIDERS: ADMIT Internal Medicine Nephrology; ATTEND Internal Medicine
PROC: 5A1945Z Respiratory Ventilation, 24-96 Consecutive Hours (ICD-10-PCS; principal; 2017-02-23)
PROC: 0BH17EZ Insertion of Endotracheal Airway into Trachea, Via Natural or Artificial Opening (ICD-10-PCS; 2017-02-23)
PROC: 30233K1 Transfusion of Nonautologous Frozen Plasma into Peripheral Vein, Percutaneous Approach (ICD-10-PCS; 2017-02-23)
PROC: 30233N1 Transfusion of Nonautologous Red Blood Cells into Peripheral Vein, Percutaneous Approach (ICD-10-PCS; 2017-02-23)
PROC: 30233R1 Transfusion of Nonautologous Platelets into Peripheral Vein, Percutaneous Approach (ICD-10-PCS; 2017-02-23)
DX: A41.9 Sepsis, unspecified organism (principal); J96.00 Acute respiratory failure, unspecified whether with hypoxia or hypercapnia; R65.21 Severe sepsis with septic shock; D65 Disseminated intravascular coagulation [defibrination syndrome]; K72.00 Acute and subacute hepatic failure without coma; G93.41 Metabolic encephalopathy; N17.9 Acute kidney failure, unspecified; D61.818 Other pancytopenia; N18.6 End stage renal disease; I12.0 Hypertensive chronic kidney disease with stage 5 chronic kidney disease or end stage renal disease; I31.3 Pericardial effusion (noninflammatory); J44.9 Chronic obstructive pulmonary disease, unspecified; E11.22 Type 2 diabetes mellitus with diabetic chronic kidney disease; N13.4 Hydroureter; E78.00 Pure hypercholesterolemia, unspecified; I48.0 Paroxysmal atrial fibrillation; I72.3 Aneurysm of iliac artery; I71.4 Abdominal aortic aneurysm, without rupture; K57.90 Diverticulosis of intestine, part unspecified, without perforation or abscess without bleeding; K21.9 Gastro-esophageal reflux disease without esophagitis; M41.9 Scoliosis, unspecified; K86.89 Other specified diseases of pancreas; Z87.891 Personal history of nicotine dependence; Z79.4 Long term (current) use of insulin; I51.7 Cardiomegaly; N40.0 Benign prostatic hyperplasia without lower urinary tract symptoms; Z66 Do not resuscitate; Z51.5 Encounter for palliative care; E78.5 Hyperlipidemia, unspecified